=== PATIENT | male | born 1990 | race Caucasian/White ===

== ENCOUNTER 2019-03-24 19:49 | Emergency (ER) | payer MEDICAID, MEDICARE ==
[~2019-03-24] VITALS: Ht 195.5 cm; Wt 86.2 kg
[~2019-03-24 19:49] MED LIST: CEPH500C PO; DEPAKOTE; DIVA500T7 PO; HYDR-700 PO; LORA10TA7 PO; QTP100T PO; QUET50TA43 PO; SERT50TA9 PO; TRAM50TA2 PO; ZOLOFT
--- NOTE | 2019-03-24 19:58 | ED Upper Extremity ---
General Stated Complaint: INJURED RIGHT HAND Source: patient Exam Limitations: no limitations History of Present Illness Date Seen by Provider: Mar 24, 2019 Time Seen by Provider: 19:57 Initial Comments to ER with pain to the right hand, specifically to the dorsal aspect of the hand over the third fourth and fifth metacarpals. He states this occurred after he pushed a concrete wall on Saturday Onset: just prior to arrival Severity: moderate Pain/Injury Location: right thumb, right 3rd finger, right 4th finger, right 5th finger Method of Injury: direct blow Modifying Factors: Worse With Movement Allergies and Home Medications Allergies Coded Allergies: No Known Drug Allergies (Unverified , 07/27/13) Home Medications Quetiapine Fumarate 100 Mg Tablet, 300 MG PO HS, (Reported) Sertraline Hcl 50 Mg Tablet, 50 MG PO DAILY, (Reported) [Depakote] , ?MG BID, (Reported) Patient Home Medication List Home Medication List Reviewed: Yes Review of Systems Constitutional: see HPI EENTM: see HPI Respiratory: no symptoms reported Cardiovascular: no symptoms reported Genitourinary: no symptoms reported Musculoskeletal: see HPI Skin: no symptoms reported Psychiatric/Neurological: No Symptoms Reported Past Lcyhgsp-Wstlew-Nghgcb Hx Patient Social History Recent Foreign Travel: No Contact w/Someone Who Travel: No (N) Immunizations Up To Date Tetanus Booster (TDap): Less than 5yrs Date of Influenza Vaccine: Apr 24, 2013 Physical Exam Vital Signs Vital Signs - First Documented 03/24/19 19:50 Temp 36.7 Pulse 85 Resp 18 B/P (MAP) 147/87 (107) Pulse Ox 99 Capillary Refill : Height, Weight, BMI Height: 6'5" Weight: 190lbs. oz. 86.904916lh; BMI Method:Stated General Appearance: WD/WN, no apparent distress Respiratory: no respiratory distress, no accessory muscle use Shoulder: normal inspection, non-tender Elbow/Forearm: normal inspection, non-tender, Right (no pain at the elbow) Wrist: Yes normal inspection, Yes non-tender (pain at the wrist) Hand: Right, ecchymosis (faint yellowish green ecchymosis over the dorsal aspect of the hand with pain swelling specifically again over the third fourth and fifth metacarpals. No pain over the palmar aspect) Neurologic/Tendon: normal sensation, normal tendon functions Neurologic/Psychiatric: alert, normal mood/affect, oriented x 3 Skin: normal color, warm/dry Progress/Results/Core Measures Results/Orders My Orders Orders - MIGUEL SINGH APRN Hand, Right, 3 Views (03/24/19 19:56) Vital Signs/I&O 03/24/19 19:50 Temp 36.7 Pulse 85 Resp 18 B/P (MAP) 147/87 (107) Pulse Ox 99 Departure Impression Primary Impression: Contusion of hand Qualified Codes: S60.221A - Contusion of right hand, initial encounter Disposition: 01 HOME, SELF-CARE Condition: Stable Departure-Patient Inst. Decision time for Depature: 20:16 [place]errals: [facility] [place] [facility] [place] Primary Care Physician Patient Instructions: Contusion (DC) Add. Discharge Instructions: 1. Tylenol Motrin and an ice pack to the hand as needed for pain control 2. Follow-up with your doctor next week MIGUEL SINGH APRN Mar 24, 2019 19:58
--- NOTE | 2019-03-24 20:19 | Diagnostic Imaging Report ---
EXAM: HAND, RIGHT, 3 VIEWS INDICATION: Right hand pain after punching wall. COMPARISON: 02/24/2016. FINDINGS: No fracture or malalignment. Stable well-corticated fragment along the base of the right 5th metacarpal. Soft tissue shadows are unremarkable. IMPRESSION: No acute radiographic findings in the right hand Dictated by: Dictated on workstation # [id number]
[2019-03-24 20:28] VITALS: BP 147/87
== END 2019-03-24 20:28 | disposition home or self-care (01) ==
LOC: EDUNIT# 19:49 → ER 19:51
DX: S60.221A Contusion of right hand, initial encounter (principal); W22.8XXA Striking against or struck by other objects, initial encounter
CPT/HCPCS: 73130

== ENCOUNTER 2019-05-06 21:54 | Emergency (ER) | payer MEDICARE, MEDICAID ==
[~2019-05-06] VITALS: Ht 195 cm; Wt 83.1 kg
[2019-05-06] MEDS ORDERED: TETANUS,DIPTH,PERTUSS P/F (BOOSTRIX) 0.5 ML VIAL IM ONE (23:15)
--- NOTE | 2019-05-06 23:16 | ED Head Injury ---
General Chief Complaint: Head/Cervical Problems Stated Complaint: FALL Nursing Triage Note: Patient brought to ER FT1 by [facility] with complaint of an abrasion to the top of his head. Patient states he was jumping on the bed and hit his head on the ceiling. Patient denies any loss of consciousness. Source: patient (LIMITED HISTORIAN ABOUT PMH), EMS History of Present Illness Date Seen by Provider: May 06, 2019 Time Seen by Provider: 23:00 Initial Comments PT ARRIVES VIA EMS, WALKING IN ON HIS OWN AND TEXTING THE WHOLE TIME. PT STATES HE WAS JUMPING ON THE BED "FOR FUN" AND HIT HIS HEAD ON THE CEILING, AND LANDED ON THE BED ON HIS BACK DENIES LOSS OF CONSCIOUSNESS OCCURRED AT HOME AT 2200 TONIGHT HAS MINOR ABRASION TO TOP OF HEAD NO HEADACHE NO VISION CHANGES NO NECK PAIN NO DIZZINESS NO OTHER INJURIES EMS REPORT THAT THEY HAD BEEN CALLED TO THE SCENE APPROXIMATELY AN HOUR PRIOR TO THIS CALL, PT WAS BEING ARRESTED FOR A DOMESTIC DISTURBANCE, AND THEN STARTED COMPLAINING OF "CHEST PAIN" HE WAS BEING ARRESTED, SO EMS WAS CALLED. SOON PT WAS TOLD THAT HE WOULD BE COMING HERE INSTEAD OF GOING TO ASSISTED, AND WAS NOT GOING TO BE IMMEDIATELY ARRESTED, HE THEN PROMPTLY REFUSED CARE AND STATED THAT HIS CHEST PAIN WAS GONE. LAST TETANUS IS UNKNOWN PCP: [facility] Allergies and Home Medications Allergies Coded Allergies: No Known Drug Allergies (Unverified , 07/27/13) Home Medications Quetiapine Fumarate 100 Mg Tablet, 300 MG PO HS, (Reported) Sertraline Hcl 50 Mg Tablet, 50 MG PO DAILY, (Reported) [Depakote] , ?MG BID, (Reported) Patient Home Medication List Home Medication List Reviewed: Yes Review of Systems Review of Systems Constitutional: no symptoms reported Eyes: No Symptoms Reported Ears, Nose, Mouth, Throat: no symptoms reported Respiratory: no symptoms reported Cardiovascular: no symptoms reported Gastrointestinal: no symptoms reported Genitourinary: no symptoms reported Musculoskeletal: no symptoms reported Skin: see HPI Psychiatric/Neurological: No Symptoms Reported; Denies Cognitive Dysfunction, Denies Headache, Denies Numbness, Denies Tingling, Denies Weakness Endocrine: No Symptoms Reported Hematologic/Lymphatic: No Symptoms Reported Past Getikty-Bwfkjs-Zcqkwb Hx Patient Social History Alcohol Use: Denies Use Recreational Drug Use: No Smoking Status: Current Everyday Smoker Type Used: Cigarettes 2nd Hand Smoke Exposure: Yes Recent Foreign Travel: No Contact w/Someone Who Travel: No Recent Infectious Disease Expo: No Recent Hopitalizations: No Physical Abuse: No Sexual Abuse: No Mistreated: No Fear: No Immunizations Up To Date Tetanus Booster (TDap): Unknown Date of Influenza Vaccine: Apr 22, 2019 Seasonal Allergies Seasonal Allergies: No Past Medical History Surgeries: No Respiratory: No Cardiac: No Neurological: Yes Seizure Disorder Genitourinary: No Gastrointestinal: No Musculoskeletal: No Endocrine: No HEENT: No Cancer: No Psychosocial: Yes (CONDUCT DISORDER, MILD MR) Integumentary: No Blood Disorders: No Physical Exam Vital Signs Vital Signs - First Documented 05/06/19 22:07 Temp 37.1 Pulse 108 Resp 16 B/P (MAP) 119/71 (87) Pulse Ox 97 O2 Delivery Room Air Capillary Refill : Less Than 3 Seconds Height, Weight, BMI Height: 6'5" Weight: 190lbs. oz. 86.920226pb; 21.00 BMI Method:Stated General Appearance: WD/WN HEENT: PERRL/EOMI, normal ENT inspection Neck: non-tender, full range of motion, supple, normal inspection Cardiovascular: regular rate, rhythm, no murmur Respiratory: chest non-tender, normal breath sounds Gastrointestinal: non tender, soft Back: normal inspection Extremities: normal inspection Psychiatric: alert, oriented x 3 Crainal Nerves: normal hearing, normal speech, PERRL Coordination/Gait: normal gait Motor/Sensory: no motor deficit, no sensory deficit Skin: normal color, warm/dry, other (MINOR SUPERFICIAL ABRASION TO TOP OF HEAD. NO BONY TENDERNESS OR DEFORMITY. ) Progress/Results/Core Measures Results/Orders My Orders Orders - TIMOTEO LAINEZ DO Dipht,Pertuss(Acell),Tet Adult (Boostrix (05/06/19 23:15) Medications Given in ED Current Medications Medications Dose Ordered Sig/Kelli Route Start Time Stop Time Status Last Admin Dose Admin Diphtheria/ Tetanus/Acell Pertussis 0.5 ml ONCE ONCE IM 05/06/19 23:15 05/06/19 23:16 DC 05/06/19 23:29 0.5 ML Vital Signs/I&O 05/06/19 05/06/19 22:07 23:39 Temp 37.1 37.1 Pulse 108 108 Resp 16 16 B/P (MAP) 119/71 (87) 119/71 (87) Pulse Ox 97 97 O2 Delivery Room Air Room Air Blood Pressure Mean: 87 POS Departure Impression Primary Impression: Scalp abrasion Additional Impressions: Minor head injury without loss of consciousness Ttogqhiufn-zygdotxuv-xqoaukt (DPT) vaccination administered at current visit Disposition: 01 HOME, SELF-CARE Condition: Stable Departure-Patient Inst. Referrals: [facility] (PCP/Family) Primary Care Physician Patient Instructions: Skin Abrasions (DC), Minor Head Injury (DC) Add. Discharge Instructions: TYLENOL NEEDED FOR PAIN CLEAN WOUND TWICE A DAY WITH ANTIBACTERIAL SOAP AND WATER, APPLY ANTIBIOTIC OINTMENT TWICE A DAY FOLLOW UP WITH [facility] NEEDED All discharge instructions reviewed with patient and/or family. Voiced understanding. TIMOTEO LAINEZ DO May 06, 2019 23:16 POS
[2019-05-06 23:39] VITALS: BP 119/71
--- NOTE | 2019-05-06 23:40 | NUR ---
Patient given taxi voucher.
== END 2019-05-06 23:40 | disposition home or self-care (01) ==
LOC: EDUNIT# 21:54 → ER 21:55
DX: S09.90XA Unspecified injury of head, initial encounter (principal); S00.01XA Abrasion of scalp, initial encounter; G40.909 Epilepsy, unspecified, not intractable, without status epilepticus; F70 Mild intellectual disabilities; F91.9 Conduct disorder, unspecified; F17.210 Nicotine dependence, cigarettes, uncomplicated; Z23 Encounter for immunization; W22.8XXA Striking against or struck by other objects, initial encounter; Y92.009 Unspecified place in unspecified non-institutional (private) residence as the place of occurrence of the external cause
CPT/HCPCS: 90715; 99284

== ENCOUNTER 2019-09-06 16:28 | Emergency (ER) | payer MEDICARE, MEDICAID ==
[~2019-09-06] VITALS: Ht 185 cm; Wt 86.0 kg
[2019-09-06] MEDS ORDERED: LACTATED RINGERS 1,000 ML IV ONE (16:47)
[2019-09-06] MEDS ORDERED: FAMOTIDINE 20 MG (PEPCID) TABLET PO STA (16:47)
--- NOTE | 2019-09-06 16:54 | ED Abdominal Pain ---
General Chief Complaint: Psych/Social Disorder Stated Complaint: STOMACH AND CHEST PAIN Nursing Triage Note: stressing, abdominal pain and chest pain Sepsis Screen: No Definite Risk Source of Information: Patient Exam Limitations: No Limitations History of Present Illness Date Seen by Provider: Sep 06, 2019 Time Seen by Provider: 16:40 Initial Comments Patient presents ER by private conveyance with chief complaint that he is having some epigastric abdominal pain that is sharp, stabbing, intermittent since yesterday. He relates this pain to getting worse anytime he starts to have more anxiety. He does not associate it with food or bowel movements. He says he had a normal soft bowel movement today and he has not had anything to eat since yesterday. He says he been fighting with his significant other and this was made it worse. He has a lot of anxiety and so he wants to make sure nothing else is wrong with him. He said he tried some Tums but his pain just got worse. He does not take anything for anxiety because he used to be on Depakote but he had a period where he did not follow up with [facility] and is not on any medications now. He denies suicidality. He smokes a pack of cigarettes per day and denies any drinking, hypertriglyceridemia, diabetes or history of pancreatitis. He's not had any abdominal surgeries or trauma. He's had no recent travel, fever or chills or cough. Allergies and Home Medications Allergies Coded Allergies: No Known Drug Allergies (Unverified , 07/27/13) Home Medications Famotidine 20 Mg Tablet, 20 MG PO BID Prescribed by: ANGÉLICA VILLAVICENCIO on 09/06/191743 Quetiapine Fumarate 100 Mg Tablet, 300 MG PO HS, (Reported) Sertraline Hcl 50 Mg Tablet, 50 MG PO DAILY, (Reported) [Depakote] , ?MG BID, (Reported) Patient Home Medication List Home Medication List Reviewed: Yes Review of Systems Review of Systems Constitutional: No chills, No diaphoresis EENTM: No Blurred Vision, No Double Vision Respiratory: Denies Cough, Denies Shortness of Air Cardiovascular: Denies Chest Pain, Denies Lightheadedness Gastrointestinal: See HPI, Abdominal Pain; Denies Constipated, Denies Diarrhea, Denies Nausea Genitourinary: Denies Burning, Denies Discharge Musculoskeletal: No back pain, No joint pain Skin: No pruritus, No rash Psychiatric/Neurological: Denies Headache, Denies Numbness All Other Systems Reviewed Negative Unless Noted: Yes Past Ypormat-Kvxmed-Ytwmqw Hx Patient Social History Alcohol Use: Denies Use Recreational Drug Use: No Smoking Status: Current Everyday Smoker Type Used: Cigarettes 2nd Hand Smoke Exposure: Yes Recent Foreign Travel: No Contact w/Someone Who Travel: No Recent Infectious Disease Expo: No Recent Hopitalizations: No Physical Abuse: No Sexual Abuse: No Mistreated: Yes Fear: No Immunizations Up To Date Tetanus Booster (TDap): Unknown Date of Influenza Vaccine: Mar 24, 2019 Seasonal Allergies Seasonal Allergies: No Past Medical History Surgeries: No Respiratory: No Cardiac: No Neurological: Yes Seizure Disorder Genitourinary: No Gastrointestinal: No Musculoskeletal: No Endocrine: No HEENT: No Cancer: No Psychosocial: Yes (CONDUCT DISORDER, MILD MR) Integumentary: No Blood Disorders: No Physical Exam Vital Signs Vital Signs - First Documented 09/06/19 16:32 Temp 36.6 Pulse 124 Resp 22 B/P (MAP) 130/83 (99) Pulse Ox 96 O2 Delivery Room Air Capillary Refill : Less Than 3 Seconds Height/Weight/BMI Height: 6'5" Weight: 190lbs. oz. 86.565155yf; 25.00 BMI Method:Stated General Appearance: WD/WN, mild distress (anxious affect) HEENT: PERRL/EOMI, normal ENT inspection, TMs normal, pharynx normal Neck: full range of motion, supple, normal inspection Respiratory: lungs clear, normal breath sounds, no respiratory distress, no accessory muscle use Cardiovascular: normal peripheral pulses, regular rate, rhythm, tachycardia (120) Peripheral Pulses: 2+ Radial Pulses (R), 2+ Radial Pulses (L) Gastrointestinal: normal bowel sounds, soft, no organomegaly, tenderness (epigastric region) Extremities: normal range of motion, non-tender, normal capillary refill Neurologic/Psychiatric: alert, oriented x 3, other (anxious affect) Skin: normal color, warm/dry Progress/Results/Core Measures Results/Orders Lab Results Laboratory Tests Test 09/06/19 16:50 Range/Units White Blood Count 5.9 4.3-11.0 10^3/uL Red Blood Count 5.13 4.35-5.85 10^6/uL Hemoglobin 15.8 13.3-17.7 G/DL Hematocrit 45 40-54 % Mean Corpuscular Volume 89 80-99 FL Mean Corpuscular Hemoglobin 31 25-34 PG Mean Corpuscular Hemoglobin Concent 35 32-36 G/DL Red Cell Distribution Width 13.1 10.0-14.5 % Platelet Count 188 130-400 10^3/uL Mean Platelet Volume 11.5 H 7.4-10.4 FL Neutrophils (%) (Auto) 66 42-75 % Lymphocytes (%) (Auto) 25 12-44 % Monocytes (%) (Auto) 9 0-12 % Eosinophils (%) (Auto) 1 0-10 % Basophils (%) (Auto) 1 0-10 % Neutrophils # (Auto) 3.9 1.8-7.8 X 10^3 Lymphocytes # (Auto) 1.4 1.0-4.0 X 10^3 Monocytes # (Auto) 0.5 0.0-1.0 X 10^3 Eosinophils # (Auto) 0.0 0.0-0.3 10^3/uL Basophils # (Auto) 0.0 0.0-0.1 10^3/uL Sodium Level 137 135-145 MMOL/L Potassium Level 3.9 3.6-5.0 MMOL/L Chloride Level 104 98-107 MMOL/L Carbon Dioxide Level 20 L 21-32 MMOL/L Anion Gap 13 5-14 MMOL/L Blood Urea Nitrogen 11 7-18 MG/DL Creatinine 0.83 0.60-1.30 MG/DL Estimat Glomerular Filtration Rate > 60 BUN/Creatinine Ratio 13 Glucose Level 91 70-105 MG/DL Calcium Level 8.9 8.5-10.1 MG/DL Corrected Calcium 8.7 8.5-10.1 MG/DL Total Bilirubin 0.4 0.1-1.0 MG/DL Aspartate Amino Transf (AST/SGOT) 24 5-34 U/L Alanine Aminotransferase (ALT/SGPT) 20 0-55 U/L Alkaline Phosphatase 76 40-136 U/L Total Protein 6.7 6.4-8.2 GM/DL Albumin 4.3 3.2-4.5 GM/DL Lipase 18 8-78 U/L My Orders Orders - ANGÉLICA VILLAVICENCIO Ed Iv/Invasive Line Start (09/06/19 16:47) Lactated Ringers (Lr 1000 Ml Iv Solution (09/06/19 16:47) Lidocaine 2% Viscous 15 Ml (Xylocaine Vi (09/06/19 17:00) Famotidine Tablet (Pepcid Tablet) (09/06/19 16:47) Antacid Suspension (Mylanta Suspension (09/06/19 17:00) Lipase (09/06/19 16:47) Cbc With Automated Diff (09/06/19 16:47) Comprehensive Metabolic Panel (09/06/19 16:47) Medications Given in ED Current Medications Medications Dose Ordered Sig/Kelli Route Start Time Stop Time Status Last Admin Dose Admin Al Hydrox/Mg Hydrox/Simethicone 30 ml ONCE ONCE PO 09/06/19 17:00 09/06/19 17:01 DC 09/06/19 17:02 30 ML Lactated Ringer's 1,000 ml @ 0 mls/hr Q0M ONCE IV 09/06/19 16:47 09/06/19 16:50 DC 09/06/19 17:01 1,000 MLS/HR Lidocaine HCl 15 ml ONCE ONCE PO 09/06/19 17:00 09/06/19 17:01 DC 09/06/19 17:02 15 ML Vital Signs/I&O 09/06/19 16:32 Temp 36.6 Pulse 124 Resp 22 B/P (MAP) 130/83 (99) Pulse Ox 96 O2 Delivery Room Air Blood Pressure Mean: 99 Progress Progress Note #1: Time: 16:52 Progress Note Plan to give him a GI cocktail and Pepcid. Check some basic labs including a lipase. He endorsed dysuria so we'll check a urinalysis and drug screen. If this doesn't help his pain we can think about using an anti-anxiety versus some Toradol. Seems like he and his girlfriend were fighting and he walked away and ended up coming up here because his belly hurt. He personally associated with belly pain with his anxiety. Progress Note #2: Time: 17:39 Progress Note Patient's pain is better he is not having any discomfort or nausea. He is feeling much better and has called and spoke with his significant other and they have reconciled. He is ready to go home. We have offered him to follow-up with his primary care office and do a urinalysis if he wants and he accepted that plan. We have put him on Pepcid for the next couple weeks. Departure Impression Primary Impression: GERD (gastroesophageal reflux disease) Qualified Codes: K21.0 - Gastro-esophageal reflux disease with esophagitis Additional Impression: Acute anxiety Disposition: 01 HOME, SELF-CARE Condition: Stable Departure-Patient Inst. Decision time for Depature: 17:42 Referrals: [facility] (PCP/Family) Primary Care Physician Patient Instructions: Acid Reflux (Gastroesophageal Reflux Disease), Adult (DC) Add. Discharge Instructions: Start taking Pepcid 20 mg capsules twice a day for the next 30 days. Follow-up with your primary care doctor in the next 2-4 weeks for reassessment of your symptoms. If your symptoms worsen you can try Mylanta, Maalox or Rolaids. All discharge instructions reviewed with patient and/or family. Voiced understanding. Scripts Famotidine (Pepcid) 20 Mg Tablet 20 MG PO BID for 30 Days, #60 TAB 0 Refills Prov: ANGÉLICA VILLAVICENCIO 09/06/19 ANGÉLICA VILLAVICENCIO Sep 06, 2019 16:54
[2019-09-06 17:00] LABS: BASOPHILS % (AUTO) 1 % (0-10); EOSINOPHILS % (AUTO) 1 % (0-10); HEMATOCRIT 45 % (40-54); HEMOGLOBIN 15.8 G/DL (13.3-17.7); LYMPHOCYTES # (AUTO) 1.4 X 10^3 (1.0-4.0); LYMPHOCYTES % (AUTO) 25 % (12-44); MEAN CORPUSCULAR HEMOGLOBIN 31 PG (25-34); MEAN CORPUSCULAR HGB CONC 35 G/DL (32-36); MEAN CORPUSCULAR VOLUME 89 FL (80-99); MEAN PLATELET VOLUME 11.5 FL (7.4-10.4); MONOCYTES # (AUTO) 0.5 X 10^3 (0.0-1.0); MONOCYTES % (AUTO) 9 % (0-12); NEUTROPHILS # (AUTO) 3.9 X 10^3 (1.8-7.8); NEUTROPHILS % (AUTO) 66 % (42-75); PLATELET COUNT 188 10^3/uL (130-400); RED CELL DISTRIBUTION WIDTH 13.1 % (10.0-14.5); WHITE BLOOD COUNT 5.9 10^3/uL (4.3-11.0)
[2019-09-06] MEDS ORDERED: LIDOCAINE 2% VISCOUS 15 ML UDC PO ONE (17:00)
[2019-09-06] MEDS ORDERED: ANTACID SUSP 30 ML UDC (MYLANTA) PO ONE (17:00)
[2019-09-06 17:23] LABS: ALANINE AMINOTRANSFERASE 20 U/L (0-55); ALBUMIN 4.3 GM/DL (3.2-4.5); ALKALINE PHOSPHATASE 76 U/L (40-136); BILIRUBIN,TOTAL 0.4 MG/DL (0.1-1.0); BUN/CREATININE RATIO 13; CALCIUM 8.9 MG/DL (8.5-10.1); CARBON DIOXIDE 20 MMOL/L (21-32); CHLORIDE 104 MMOL/L (98-107); CREATININE SERUM 0.83 MG/DL (0.60-1.30); GFR ESTIMATED > 60; GLUCOSE 91 MG/DL (70-105); LIPASE 18 U/L (8-78); POTASSIUM 3.9 MMOL/L (3.6-5.0); SODIUM 137 MMOL/L (135-145); TOTAL PROTEIN 6.7 GM/DL (6.4-8.2)
[2019-09-06] MEDS ORDERED: FAMO-119 PO (17:44)
[2019-09-06 17:53] VITALS: BP 132/87
--- OUTSIDE RECORDS SUMMARY | 2019-09-07 02:28 | XMS REPORT ---
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 Activ e 218881264 Problem Impulse control disorder F63.9 Activ e 37311283 Problem Depressive disorder F32.9 Active 51015783 Problem Mild intellectual disabilities F70 Active 76169755 Problem Seasonal allergic rhinitis due to pollen J30.1 Active [id number] ALLERGIES No Information ENCOUNTERS Encounter Location Date Diagnosis [place] [id number] [address] Sep, [place] [address] [address] Jul, Depressive disorder F32.9 [place] [address] [address] Jul, [place] [address] [address] May, [facility] [address] [address] Apr, [place] [address] [address] Apr, Depressive disorder F32.9 ; Impulse cont rol disorder F63.9 and Mild intellectual disabilities F70 [facility] [address] [address] Apr, [place] [address] [address] Apr, [facility] [address] [place] [id number] [place] [address] Apr, [facility] [address] [address] Apr, Impulse control disorder F63.9 ; Depress douglas disorder F32.9 and Mild intellectual disabilities F70 [address] [place] [address] Mar, [facility] [address] [address] Mar, [facility] [address] [address] Mar, Encounter for immunization Z23 [facility] [address] [address] Dec, [facility] [address] [address] Dec, Seasonal allergic rhinitis due to pollen J30.1 [facility] [address] [place] [id number] [place] [address] October, Depressive disorder F32.9 ; Impulse cont rol disorder F63.9 and Mild intellectual disabilities F70 [facility] [address] [place] [id number] [place] [address] Jun, Impulse control disorder F63.9 ; Mild in tellectual disabilities F70 ; Relationship dysfunction Z63.9 and Depressive disorder F32.9 [facility] [address] [place] [id number] [place] [address] Jun, [facility] [address] [address] May, [facility] [address] [address] May, [facility] [address] [address] May, Encounter for immunization Z23 [facility] [address] [address] Apr, [facility] [address] [address] Apr, [facility] [address] [address] Mar, [facility] [address] [address] Mar, [facility] [address] [address] Feb, Annual physical exam Z00.00 [place] [address] [address] 25 Feb, 2018 Annual physical exam Z00.00 ; Mild intel lectual disabilities F70 and Encounter for immunization Z23 [facility] [address] [address] 11 Feb, 2018 [facility] [address] [address] Jan, [facility] [address] [address] Jan, Impulse control disorder F63.9 ; Mild in tellectual disabilities F70 and Depressive disorder F32.9 [facility] [address] [address] Nov, [facility] [address] [address] Nov, [facility] [address] [address] Nov, [facility] [address] [address] Nov, [facility] [address] [address] Nov, [facility] [address] [address] 05 Nov, 2017 Impulse control disorder F63.9 ; Depress douglas disorder F32.9 and Mild intellectual disabilities F70 [facility] [address] [address] October, [facility] [address] [address] October, Impulse control disorder F63.9 ; Depress douglas disorder F32.9 and Mild intellectual disabilities F70 [facility] [address] [place] [id number] Sep, [facility] [address] [address] Sep, Impulse control disorder F63.9 ; Depress douglas disorder F32.9 and Mild intellectual disabilities F70 [facility] [address] [address] Sep, Impulse control disorder F63.9 ; Depress douglas disorder F32.9 and Mild intellectual disabilities F70 [facility] [address] [address] Aug, [facility] [address] [address] Aug, Impulse control disorder F63.9 ; Depress douglas disorder F32.9 and Mild intellectual disabilities F70 [facility] [address] [id number] Aug, Dental examination Z01.20 [facility] [address] [address] Aug, [facility] [address] [address] Aug, Impulse control disorder F63.9 ; Depress douglas disorder F32.9 and Mild intellectual disabilities F70 [facility] [address] [place] [id number] Jul, Impulse control disorder F63.9 ; Depress douglas disorder F32.9 and Mild intellectual disabilities F70 [facility] [address] [id number] 12 Jul, 2017 Dental examination Z01.20 [facility] [address] [address] Jul, [facility] [address] [place] [id number] Jun, Impulse control disorder F63.9 ; Depress douglas disorder F32.9 and Mild intellectual disabilities F70 [facility] [address] [address] Jun, Impulse control disorder F63.9 ; Depress douglas disorder F32.9 and Mild intellectual disabilities F70 [facility] [address] [address] Jun, [facility] [address] [address] 08 May, 2017 [facility] [address] [address] May, Impulse control disorder F63.9 ; Depress douglas disorder F32.9 and Mild intellectual disabilities F70 [facility] [address] [address] Apr, Impulse control disorder F63.9 ; Depress douglas disorder F32.9 and Mild intellectual disabilities F70 [facility] [address] [address] Apr, Seizures R56.9 [place] [address] [address] Apr, [facility] [address] [address] Apr, Seizures R56.9 ; Tobacco abuse Z72.0 ; A lcohol abuse F10.10 and Encounter for immunization Z23 [facility] [address] [address] 14 Apr, 2017 Impulse control disorder F63.9 ; Depress douglas disorder F32.9 and Mild intellectual disabilities F70 [facility] [address] [address] Mar, Impulse control disorder F63.9 ; Depress douglas disorder F32.9 and Mild intellectual disabilities F70 [facility] [address] [address] Mar, [facility] [address] [address] Mar, Impulse control disorder F63.9 ; Depress douglas disorder F32.9 and Mild intellectual disabilities F70 [facility] [address] [address] Mar, [facility] [address] [address] Feb, Impulse control disorder F63.9 ; Depress douglas disorder F32.9 and Mild intellectual disabilities F70 [facility] [address] [address] Feb, [facility] [address] [address] Feb, Impulse control disorder F63.9 ; Depress douglas disorder F32.9 and Mild intellectual disabilities F70 [facility] [address] [address] Jan, Annual physical exam Z00.00 ; Right hand pain M79.641 ; Impulse control disorder F63.9 ; Mild intellectual disabilities F70 and Depressive disorder F32.9 [facility] [address] [address] Jan, Impulse control disorder F63.9 ; Depress douglas disorder F32.9 and Mild intellectual disabilities F70 [facility] [address] [address] Jan, [facility] [address] [address] Jan, Impulse control disorder F63.9 ; Depress douglas disorder F32.9 and Mild intellectual disabilities F70 [facility] [address] [address] Jan, Impulse control disorder F63.9 ; Depress douglas disorder F32.9 and Mild intellectual disabilities F70 [facility] [address] [address] Dec, [facility] [address] [address] Dec, Impulse control disorder F63.9 ; Depress douglas disorder F32.9 and Mild intellectual disabilities F70 [facility] [address] [address] Nov, Impulse control disorder F63.9 ; Depress douglas disorder F32.9 and Mild intellectual disabilities F70 [facility] [address] [address] Nov, [facility] [address] [address] Nov, [facility] [address] [address] Nov, [facility] [address] [address] October, Impulse control disorder F63.9 ; Depress douglas disorder F32.9 and Mild intellectual disabilities F70 [facility] [address] [address] October, [facility] [address] [address] October, Impulse control disorder F63.9 ; Depress douglas disorder F32.9 and Mild intellectual disabilities F70 [facility] [address] [address] Sep, [facility] [address] [address] Sep, Impulse control disorder F63.9 ; Depress douglas disorder F32.9 and Mild intellectual disabilities F70 [facility] [address] [address] Sep, Seasonal allergic rhinitis due to pollen J30.1 [facility] [address] [address] Sep, [facility] [address] [address] Sep, [facility] [address] [address] Sep, Impulse control disorder F63.9 ; Depress douglas disorder F32.9 and Mild intellectual disabilities F70 [facility] [address] [address] Aug, Impulse control disorder F63.9 ; Depress douglas disorder F32.9 and Mild intellectual disabilities F70 [facility] [address] [address] Aug, [facility] [address] [address] Aug, [facility] [address] [address] Jul, [facility] [address] [address] Jul, Impulse control disorder F63.9 ; Depress douglas disorder F32.9 and Mild intellectual disabilities F70 [facility] [address] [facility] [place] [id number] 10 Jul, 2016 Dental examination Z01.20 [facility] [address] [address] Jul, Impulse control disorder F63.9 ; Depress douglas disorder F32.9 and Mild intellectual disabilities F70 [facility] [address] [address] Jul, [facility] [address] [address] Jun, [facility] [address] [address] Jun, Impulse control disorder F63.9 ; Depress douglas disorder F32.9 and Mild intellectual disabilities F70 [facility] [address] [address] Jun, [facility] [address] [address] Jun, [facility] [address] [address] Jun, Impulse control disorder F63.9 ; Depress douglas disorder F32.9 and Mild intellectual disabilities F70 [facility] [address] [address] May, Impulse control disorder F63.9 ; Depress douglas disorder F32.9 and Mild intellectual disabilities F70 [facility] [address] [address] May, Annual physical exam Z00.00 ; Other fati sarah R53.83 ; Seizures R56.9 ; Mild intellectual disabilities F70 and Impulse control disorder F63.9 [facility] [address] [address] May, [facility] [address] [address] May, Impulse control disorder F63.9 ; Depress douglas disorder F32.9 and Mild intellectual disabilities F70 [facility] [address] [facility] [place] [id number] Apr, Encounter for dental examination Z01.20 [facility] [address] [address] Apr, Impulse control disorder F63.9 ; Depress douglas disorder F32.9 and Mild intellectual disabilities F70 [facility] [address] [address] Apr, [facility] [address] [address] Mar, Impulse control disorder F63.9 ; Depress douglas disorder F32.9 and Mild intellectual disabilities F70 [facility] [address] [address] Mar, Impulse control disorder F63.9 ; Depress douglas disorder F32.9 and Mild intellectual disabilities F70 [facility] [address] [address] Mar, [facility] [address] [address] Mar, [facility] [address] [address] Feb, Impulse control disorder F63.9 ; Depress douglas disorder F32.9 and Mild intellectual disabilities F70 [facility] [address] [address] Feb, Impulse control disorder F63.9 ; Depress douglas disorder F32.9 and Mild intellectual disabilities F70 [facility] [address] [address] Feb, [facility] [address] [address] Jan, Annual physical exam Z00.00 ; Impulse co ntrol disorder F63.9 ; Mild intellectual disabilities F70 ; Depressive disorder F32.9 and Seizures R56.9 [facility] [address] [address] Jan, Impulse control disorder F63.9 ; Depress douglas disorder F32.9 and Mild intellectual disabilities F70 [facility] [address] [address] Jan, [facility] [address] [address] Jan, Impulse control disorder F63.9 ; Depress douglas disorder F32.9 and Mild intellectual disabilities F70 [facility] [address] [address] Jan, [facility] [address] [address] Jan, [facility] [address] [address] Dec, Impulse control disorder F63.9 ; Depress douglas disorder F32.9 and Mild intellectual disabilities F70 [facility] [address] [address] Dec, Impulse control disorder F63.9 ; Depress douglas disorder F32.9 and Mild intellectual disabilities F70 [facility] [address] [address] Dec, [facility] [address] [address] Dec, Depressive disorder F32.9 ; Impulse cont rol disorder F63.9 and Mild intellectual disabilities F70 [facility] [address] [address] Nov, [facility] [address] [address] Nov, Depressive disorder F32.9 ; Impulse cont rol disorder F63.9 and Mild intellectual disabilities F70 [facility] [address] [address] Nov, [facility] [address] [address] October, Depressive disorder F32.9 ; Impulse cont rol disorder F63.9 and Mild intellectual disabilities F70 [facility] [address] [address] October, [facility] [address] [address] October, [facility] [address] [address] October, Depressive disorder F32.9 ; Impulse cont rol disorder F63.9 and Mild intellectual disabilities F70 [facility] [address] [address] October, [facility] [address] [address] Sep, [facility] [address] [address] Sep, Depressive disorder F32.9 ; Impulse cont rol disorder F63.9 and Mild intellectual disabilities F70 [facility] [address] [address] Sep, Depressive disorder F32.9 ; Impulse cont rol disorder F63.9 and Mild intellectual disabilities F70 [facility] [address] [address] Sep, [facility] [address] [address] Aug, [facility] [address] [address] Aug, Depressive disorder F32.9 ; Impulse cont rol disorder F63.9 and Mild intellectual disabilities F70 [facility] [address] [address] Aug, Depressive disorder F32.9 ; Impulse cont rol disorder F63.9 and Mild intellectual disabilities F70 [facility] [address] [place] [id number] [place] [id number] Jul, Dental examination Z01.20 [facility] [address] [address] Jul, [facility] [address] [address] Jul, Depressive disorder F32.9 ; Impulse cont rol disorder F63.9 and Mild intellectual disabilities F70 [facility] [address] [address] 05 Jul, 2015 Depressive disorder F32.9 ; Impulse cont rol disorder F63.9 and Mild intellectual disabilities F70 [facility] [address] [address] Jul, Depression screening Z13.89 ; 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, 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 and Screening for STD sexually transmitted disease Z11.3 [facility] [address] [place] [address] Jun, [facility] [address] [address] Jun, Depressive disorder F32.9 ; Impulse cont rol disorder F63.9 and Mild intellectual disabilities F70 [facility] [address] [address] Jun, Depressive disorder, not elsewhere class ified F32.9 ; Mild mental retardation F70 and Impulse control disorder F63.9 [facility] [address] [address] Jun, Depressive disorder, not elsewhere class ified F32.9 ; Impulse control disorder F63.9 and Mild intellectual disabilities F70 [facility] [address] [address] Jun, [facility] [address] [place] [id number] [place] [id number] Jun, Dental examination Z01.20 [facility] [address] [address] May, Depressive disorder, not elsewhere class ified F32.9 ; Impulse control disorder F63.9 and Mild intellectual disabilities F70 [facility] [address] [address] May, [facility] [address] [address] May, [facility] [address] [address] May, Depressive disorder, not elsewhere class ified F32.9 ; Impulse control disorder F63.9 and Mild intellectual disabilities F70 [facility] [address] [address] May, Depressive disorder, not elsewhere class ified F32.9 ; Impulse control disorder F63.9 and Mild mental retardation F70 [facility] [address] [address] Apr, Depressive disorder, not elsewhere class ified F32.9 ; Impulse control disorder F63.9 and Mild intellectual disabilities F70 [facility] [address] [address] Apr, [facility] [address] [address] Mar, Depressive disorder, not elsewhere class ified F32.9 ; Impulse control disorder F63.9 and Mild intellectual disabilities F70 [facility] [address] [place] [address] Mar, Depressive disorder, not elsewhere class ified F32.9 ; Impulse control disorder F63.9 and Mild intellectual disabilities F70 [facility] [address] [address] Mar, [facility] [address] [address] Mar, Encounter for immunization Z23 [place] [address] [address] Mar, Depressive disorder, not elsewhere class ified F32.9 ; Impulse control disorder F63.9 and Mild intellectual disabilities F70 [facility] [address] [address] Feb, Depressive disorder, not elsewhere class ified 311 ; Impulse control disorder, unspecified 312.30 and Mild mental retardation 317 [facility] [address] [address] Feb, [facility] [address] [address] Feb, Depressive disorder, not elsewhere class ified 311 ; Impulse control disorder, unspecified 312.30 and Mild mental retardation 317 [facility] [address] [address] Jan, Depressive disorder, not elsewhere class ified 311 ; Impulse control disorder, unspecified 312.30 and Mild mental retardation [address] [place] [address] [address] Jan, Depressive disorder, not elsewhere class ified 311 ; Impulse control disorder, unspecified 312.30 and Mild mental retardation [address] [place] [address] [address] Jan, [place] [address] [address] Jan, Depressive disorder, not elsewhere class ified 311 ; Impulse control disorder, unspecified 312.30 and Mild mental retardation [address] [place] [address] [address] Dec, Depressive disorder, not elsewhere class ified 311 ; Impulse control disorder, unspecified 312.30 and Mild mental retardation [address] [place] [address] [address] Dec, [facility] [id number] [place] [id number] Dec, Dental examination V72.[address] [address] Dec, Heat rash 705.1 ; Seizures 780.39 and Hi gh risk medication use V58.69 [place] [address] [address] Dec, [address] [address] Dec, Depressive disorder, not elsewhere class ified 311 ; Impulse control disorder, unspecified 312.30 and Mild mental retardation [address] [place] [address] [address] Nov, Depressive disorder, not elsewhere class ified 311 ; Impulse control disorder, unspecified 312.30 and Mild mental retardation [address] [place] [address] [address] Nov, [facility] [id number] [place] [address] 15 Nov, 2014 Nicotine addiction 305.1 [facility] [id number] [place] [address] 11 Nov, 2014 [facility] [id number] [place] [address] 11 Nov, 2014 High risk medication use V58.69 [facility] [address] [address] 10 Nov, 2014 High risk medication use V58.69 [facility] [id number] [place] [address] 09 Nov, 2014 Depressive disorder, not elsewhere class ified 311 ; Impulse control disorder, unspecified 312.30 and Mild mental retardation 317 [facility] [id number] [place] [address] Nov, Depressive disorder, not elsewhere class ified 311 ; 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 and Impulse control disorder, unspecified 312.30 [facility] [address] [address] [id number] [place] [address] October, Depressive disorder, not elsewhere class ified 311 ; Impulse control disorder, unspecified 312.30 and Mild mental retardation 317 [facility] [address] [id number] [place] [address] October, [facility] [address] [place] [id number] [place] [address] October, Depressive disorder, not elsewhere class ified 311 ; Impulse control disorder, unspecified 312.30 and Mild mental retardation 317 [facility] [address] [address] [id number] [place] [address] October, [facility] [address] [id number] [place] [id number] October, Dental examination V72.2 [facility] [address] [id number] [place] [address] Sep, Depressive disorder, not elsewhere class ified 311 ; Impulse control disorder 312.30 and Mild mental retardation 317 [facility] [place] [facility] [address] [id number] [place] [address] 14 Sep, 2014 [facility] [address] [id number] [place] [address] 13 Sep, 2014 [facility] [place] [facility] [address] [id number] [place] [address] 26 Aug, 2014 [facility] [place] [facility] [address] [facility] [id number] [place] [address] 26 Aug, 2014 [facility] [place] [facility] [address] [facility] [id number] [place] [address] Aug, [facility] [place] [facility] [address] [facility] [id number] [place] [address] 18 Aug, 2014 [facility] [place] [facility] [address] [id number] [place] [address] Aug, [facility] [place] [facility] [address] [id number] [place] [address] Aug, [facility] [place] [facility] [address] [facility] [id number] [place] [address] Aug, [facility] [place] [facility] [address] [facility] [id number] [place] [address] Aug, [facility] [place] [facility] [address] [id number] [place] [address] Jul, 2014 [facility] [place] [facility] [address] [id number] [place] [address] Jul, 2014 [facility] [place] [facility] [address] [id number] [place] [address] Jul, 2014 [facility] [place] [facility] [address] [facility] [id number] [place] [address] Jul, 2014 [facility] [place] [facility] [address] [id number] [place] [address] 16 Jul, 2014 [facility] [place] [facility] [address] [id number] [place] [address] 16 Jul, 2014 [facility] [place] [facility] [address] [id number] [place] [address] Jul, 2014 [facility] [place] [facility] [address] [id number] [place] [address] Jul, 2014 [facility] [place] [facility] [address] [id number] [place] [address] Jul, 2014 [facility] [place] [facility] [address] [facility] [id number] [place] [address] Jul, 2014 [facility] [place] [facility] [address] [id number] [place] [address] Jul, [facility] [place] [facility] [address] [id number] [place] [address] Jul, [facility] [place] [facility] [address] [facility] [id number] [place] [address] Jul, [facility] [place] [facility] [address] [id number] [place] [address] Jul, [facility] [place] [facility] [address] [facility] [id number] [place] [address] Jun, [facility] [place] [facility] [address] [id number] [place] [address] Jun, [facility] [place] [facility] [address] [facility] [id number] [place] [address] Jun, [facility] [place] [facility] [address] [facility] [id number] [place] [address] Jun, [facility] [place] [facility] [address] [facility] [id number] [place] [address] Jun, [facility] [place] [facility] [address] [id number] [place] [address] Jun, [facility] [place] [facility] [address] [facility] [id number] [place] [address] Jun, [facility] [place] [facility] [address] [id number] [place] [address] Jun, [facility] [place] [facility] [address] [id number] [place] [address] 15 Jun, 2014 [facility] [place] [facility] [address] [id number] [place] [address] 15 Jun, 2014 [facility] [place] [facility] [address] [facility] [id number] [place] [address] Jun, [facility] [place] [facility] [address] [facility] [id number] [place] [address] 15 Jun, 2014 [facility] [place] [facility] [address] [id number] [place] [address] 08 Jun, 2014 [facility] [place] [facility] [address] [id number] [place] [address] 08 Jun, 2014 [facility] [place] [facility] [address] [id number] [place] [address] 08 Jun, 2014 [facility] [place] [facility] [address] [id number] [place] [address] 08 Jun, 2014 [facility] [place] [facility] [address] [id number] [place] [address] Jun, [facility] [place] [facility] [address] [id number] [place] [address] 08 Jun, 2014 [facility] [place] [facility] [address] [id number] [place] [address] Jun, [facility] [place] [facility] [address] [id number] [place] [address] 08 Jun, 2014 [facility] [place] [facility] [address] [id number] [place] [address] May, [facility] [place] [facility] [address] [id number] [place] [address] May, [facility] [place] [facility] [address] [id number] [place] [address] May, [facility] [place] [facility] [address] [id number] [place] [address] May, [facility] [place] [facility] [address] [facility] [id number] [place] [address] May, [facility] [place] [facility] [address] [id number] [place] [address] Apr, [facility] [place] [facility] [address] [facility] [id number] [place] [address] Apr, [facility] [place] [facility] [address] [id number] [place] [address] Apr, [facility] [place] [facility] [address] [facility] [id number] [place] [address] Apr, [facility] [place] [facility] [address] [id number] [place] [address] Apr, [facility] [place] [facility] [address] [facility] [id number] [place] [address] Apr, [facility] [place] [facility] [address] [id number] [place] [address] Apr, [facility] [place] [facility] [address] [id number] [place] [address] Apr, [facility] [place] [facility] [address] [facility] [id number] [place] [address] Mar, [facility] [place] [facility] [address] [facility] [id number] [place] [address] Mar, [facility] [place] [facility] [address] [facility] [id number] [place] [address] Mar, [facility] [place] [facility] [address] [id number] [place] [address] Mar, [facility] [place] [facility] [address] [facility] [id number] [place] [address] Mar, [facility] [place] [facility] [address] [id number] [place] [address] Mar, [facility] [place] [facility] [address] [id number] [place] [address] Mar, [facility] [place] [facility] [address] [id number] [place] [address] Mar, [facility] [place] [facility] [address] [facility] [id number] [place] [address] Mar, [facility] [place] [facility] [address] [facility] [id number] [place] [address] 16 Mar, 2013 [facility] [place] [facility] [address] [id number] [place] [address] 16 Mar, 2013 [facility] [place] [facility] [address] [facility] [id number] [place] [address] 16 Mar, 2013 [facility] [place] [facility] [address] [facility] [id number] [place] [address] 15 Mar, 2014 [facility] [place] [facility] [address] [facility] [id number] [place] [address] 15 Mar, 2013 [facility] [place] [facility] [address] [id number] [place] [address] Mar, [facility] [place] [facility] [address] [id number] [place] [address] Mar, 2013 [facility] [place] [facility] [address] [facility] [id number] [place] [address] Mar, [facility] [place] [facility] [address] [facility] [id number] [place] [address] Mar, [facility] [place] [facility] [address] [id number] [place] [address] Mar, [facility] [place] [facility] [address] [facility] [id number] [place] [address] Mar, [facility] [place] [facility] [address] [facility] [id number] [place] [address] 24 Feb, 2013 [facility] [place] [facility] [address] [id number] [place] [address] 24 Sep, 2013 [facility] [place] [facility] [address] [id number] [place] [address] 19 Sep, 2013 [facility] [place] [facility] [address] [facility] [id number] [place] [address] 19 Feb, 2013 [facility] [place] [facility] [address] [id number] [place] [address] 11 Feb, 2013 [facility] [place] [facility] [id number] [place] [address] Feb, [facility] [place] [facility] [address] [id number] [place] [address] Feb, [facility] [place] [facility] [address] [facility] [id number] [place] [address] Feb, [facility] [place] [facility] [address] [facility] [id number] [place] [address] Jan, [facility] [place] [facility] [address] [facility] [id number] [place] [address] Jan, [facility] [place] [facility] [address] [facility] [id number] [place] [address] Jan, [facility] [place] [facility] [address] [facility] [id number] [place] [address] Jan, [facility] [place] [facility] [address] [id number] [place] [address] Dec, [facility] [place] [facility] [address] [id number] [place] [address] Dec, [facility] [place] [facility] [address] [facility] [id number] [place] [address] Dec, [facility] [place] [facility] [address] [facility] [id number] [place] [address] Dec, [facility] [place] [facility] [address] [facility] [id number] [place] [address] Dec, [facility] [place] [facility] [address] [id number] [place] [address] Dec, [facility] [place] [facility] [address] [facility] [id number] [place] [address] Dec, [facility] [place] [facility] [address] [id number] [place] [address] Dec, [facility] [place] [facility] [address] [facility] [id number] [place] [address] Dec, [facility] [place] [facility] [address] [id number] [place] [address] Dec, [facility] [place] [facility] [address] [facility] [id number] [place] [address] Nov, [facility] [place] [facility] [address] [id number] [place] [address] Nov, [facility] [place] [facility] [address] [facility] [id number] [place] [address] Nov, [facility] [place] [facility] [address] [id number] [place] [address] Nov, [facility] [place] [facility] [address] [facility] [id number] [place] [address] Nov, [facility] [place] [facility] [address] [facility] [id number] [place] [address] Nov, [facility] [place] [facility] [address] [id number] [place] [address] Nov, [facility] [place] [facility] [address] [id number] [place] [address] Nov, [facility] [place] [facility] [address] [id number] [place] [address] Nov, [facility] [place] [facility] [address] [facility] [id number] [place] [address] Nov, [facility] [place] [facility] [address] [id number] [place] [address] Nov, [facility] [place] [facility] [address] [id number] [place] [address] Nov, [facility] [place] [facility] [address] [id number] [place] [address] October, [facility] [place] [facility] [address] [id number] [place] [address] October, [facility] [place] [facility] [address] [id number] [place] [address] October, [facility] [place] [facility] [address] [id number] [place] [address] October, [facility] [place] [facility] [address] [id number] [place] [address] October, [facility] [place] [facility] [address] [id number] [place] [address] October, [facility] [place] [facility] [address] [id number] [place] [address] October, [facility] [place] [facility] [address] [id number] [place] [address] October, [facility] [place] [facility] [address] [id number] [place] [address] October, [facility] [place] [facility] [address] [id number] [place] [address] October, [facility] [place] [facility] [address] [id number] [place] [address] Sep, [facility] [place] [facility] [address] [id number] [place] [address] Sep, [facility] [place] [facility] [address] [id number] [place] [address] Sep, [facility] [place] [facility] [address] [id number] [place] [address] Sep, [facility] [place] [facility] [address] [id number] [place] [address] Sep, [facility] [place] [facility] [address] [id number] [place] [address] Sep, [facility] [place] [facility] [address] [id number] [place] [address] Sep, [facility] [place] [facility] [address] [id number] [place] [address] Sep, [facility] [place] [facility] [address] [id number] [place] [address] Aug, [facility] [place] [facility] [address] [id number] [place] [address] Aug, [facility] [place] [facility] [address] [id number] [place] [address] Aug, [facility] [place] [facility] [address] [id number] [place] [address] Aug, [facility] [place] [facility] [address] [id number] [place] [address] Aug, [facility] [place] [facility] [address] [id number] [place] [address] Aug, [facility] [place] [facility] [address] [id number] [place] [address] Aug, [facility] [place] [facility] [address] [id number] [place] [address] Aug, [facility] [place] [facility] [address] [facility] [id number] [place] [address] Jul, [facility] [place] [facility] [address] [id number] [place] [address] Jul, [facility] [place] [facility] [address] [id number] [place] [address] Jul, [facility] [place] [facility] [address] [id number] [place] [address] Jul, [facility] [place] [facility] [address] [id number] [place] [address] Jul, [facility] [place] [facility] [address] [id number] [place] [address] Jul, [facility] [place] [facility] [address] [id number] [place] [address] Jul, [facility] [place] [facility] [address] [id number] [place] [address] Jul, [facility] [place] [facility] [address] [id number] [place] [address] Jun, [facility] [place] [facility] [address] [id number] [place] [address] Jun, [facility] [place] [facility] [address] [id number] [place] [address] Jun, [facility] [place] [facility] [address] [id number] [place] [address] Jun, [facility] [place] [facility] [address] [id number] [place] [address] 16 Jun, 2013 [facility] [place] [facility] [address] [id number] [place] [address] Jun, [facility] [place] [facility] [address] [id number] [place] [address] Jun, [facility] [place] [facility] [address] [id number] [place] [address] Jun, [facility] [place] [facility] [address] [id number] [place] [address] May, [facility] [place] [facility] [address] [id number] [place] [address] May, [facility] [place] [facility] [address] [id number] [place] [address] May, [facility] [place] [facility] [address] [id number] [place] [address] May, [facility] [place] [facility] [address] [id number] [place] [address] May, [facility] [place] [facility] [address] [id number] [place] [address] May, [facility] [place] [facility] [address] [id number] [place] [address] Apr, [facility] [place] [facility] [address] [id number] [place] [address] Apr, [facility] [place] [facility] [address] [id number] [place] [address] Mar, [facility] [place] [facility] [address] [id number] [place] [address] Mar, [facility] [place] [facility] [address] [id number] [place] [address] Mar, [facility] [place] [facility] [address] [id number] [place] [address] Mar, [facility] [place] [facility] [address] [id number] [place] [address] Mar, [facility] [place] [facility] [address] [id number] [place] [address] Feb, [facility] [place] [facility] [address] [facility] [id number] [place] [address] Jan, [facility] [place] [facility] [address] [id number] [place] [address] Jan, [facility] [place] [facility] [address] [id number] [place] [address] Jan, [facility] [place] [facility] [address] [facility] [id number] [place] [address] Jan, [facility] [place] [facility] [address] [id number] [place] [address] Jan, [facility] [place] [facility] [address] [id number] [place] [address] Dec, [facility] [place] [facility] [address] [id number] [place] [address] Dec, [facility] [place] [facility] [address] [id number] [place] [address] Dec, [facility] [place] [facility] [address] [id number] [place] [address] Dec, [facility] [place] [facility] [address] [id number] [place] [address] Nov, [facility] [place] [facility] [address] [id number] [place] [address] Nov, [facility] [place] [facility] [address] [id number] [place] [address] Nov, [facility] [place] [facility] [address] [id number] [place] [address] October, [facility] [address] [facility] [id number] [place] [address] October, [facility] [address] [facility] [id number] [place] [address] October, [facility] [address] [facility] [id number] [place] [address] Sep, [facility] [address] [facility] [id number] [place] [address] Sep, [facility] [address] [facility] [id number] [place] [address] Aug, [facility] [address] [facility] [id number] [place] [address] Aug, [facility] [address] [facility] [id number] [place] [address] Jul, [facility] [address] [facility] [id number] [place] [address] Jul, [facility] [address] [facility] [id number] [place] [address] Jul, [facility] [address] [facility] [id number] [place] [address] Jul, [facility] [address] [facility] [id number] [place] [address] Jul, [facility] [address] [facility] [id number] [place] [address] Jun, [facility] [address] [facility] [id number] [place] [address] May, [facility] [address] [facility] [id number] [place] [address] 31 May, 2012 [facility] [address] [facility] [id number] [place] [address] 14 May, 2012 [facility] [address] [facility] [id number] [place] [address] 14 May, 2012 [facility] [address] [facility] [id number] [place] [address] May, [facility] [address] [facility] [id number] [place] [address] 13 May, 2012 [facility] [address] [facility] [id number] [place] [address] May, [facility] [address] [facility] [id number] [place] [address] May, [facility] [address] [facility] [id number] [place] [address] Apr, [facility] [address] [facility] [id number] [place] [address] Apr, [facility] [address] [facility] [id number] [place] [address] Apr, [facility] [address] [facility] [id number] [place] [address] Apr, [facility] [address] [facility] [id number] [place] [address] Mar, [facility] [address] [facility] [id number] [place] [address] Mar, [facility] [id number] [place] [address] Mar, [facility] [address] [facility] [id number] [place] [address] Feb, [facility] [address] [facility] [id number] [place] [address] Feb, [facility] [address] [facility] [id number] [place] [address] Jan, [facility] [address] [facility] [id number] [place] [address] Jan, [facility] [address] [facility] [id number] [place] [address] Jan, [facility] [address] [facility] [id number] [place] [address] Dec, [facility] [address] [id number] [place] [address] Dec, [facility] [address] [facility] [id number] [place] [address] Dec, [facility] [address] [facility] [id number] [place] [address] Dec, [facility] [address] [id number] [place] [address] Nov, [facility] [address] [facility] [id number] [place] [address] Nov, [facility] [address] [facility] [id number] [place] [address] Nov, [facility] [address] [facility] [id number] [place] [address] October, [facility] [address] [id number] [place] [address] October, [facility] [address] [id number] [place] [address] October, [facility] [address] [facility] [id number] [place] [address] Sep, [facility] [address] [facility] [id number] [place] [address] Sep, [facility] [address] [id number] [place] [address] Sep, [facility] [address] [id number] [place] [address] 30 Aug, 2011 [facility] [address] [id number] [place] [address] 15 Aug, 2011 [facility] [address] [id number] [place] [address] Aug, [facility] [address] [id number] [place] [address] Jul, [facility] [address] [id number] [place] [address] Jun, [facility] [address] [id number] [place] [address] Jun, [facility] [address] [id number] [place] [address] May, [facility] [address] [id number] [place] [address] May, [facility] [address] [id number] [place] [address] May, [facility] [address] [facility] [id number] [place] [address] May, [facility] [address] [id number] [place] [address] Apr, [facility] [address] [facility] [id number] [place] [address] Apr, [facility] [address] [facility] [id number] [place] [address] Apr, [facility] [address] [facility] [id number] [place] [address] Apr, [facility] [address] [facility] [id number] [place] [address] Apr, [facility] [address] [id number] [place] [address] Mar, [facility] [address] [id number] [place] [address] Mar, [facility] [address] [id number] [place] [address] Jan, [facility] [address] [id number] [place] [address] May, [facility] [address] [id number] [place] [address] Apr, [facility] [address] [id number] [place] [address] Mar[facility] [id number] [place] [address] Jun, [facility] [address] [id number] [place] [address] Apr, [facility] [id number] [place] [address] Apr, IMMUNIZATIONS No Known Immunizations SOCIAL HISTORY Never Assessed REASON FOR VISIT PLAN OF CARE VITAL SIGNS MEDICATIONS Unknown Medications RESULTS No Results PROCEDURES No Known procedures INSTRUCTIONS MEDICATIONS ADMINISTERED No Known Medications MEDICAL (GENERAL) HISTORY Type Description Date Medical History seizures Surgical History No Surgical history information
--- OUTSIDE RECORDS SUMMARY | 2019-09-07 02:29 | XMS REPORT ---
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 Activ e [id number] Problem Impulse control disorder F63.9 Activ e 12568139 Problem Depressive disorder F32.9 Active 49329469 Problem Mild intellectual disabilities F70 Active 38986767 Problem Seasonal allergic rhinitis due to pollen J30.1 Active [id number] ALLERGIES No Information ENCOUNTERS Encounter Location Date Diagnosis [place] [id number] [address] Sep, [place] [address] [address] Jul, Depressive disorder F32.9 [place] [address] [address] Jul, [place] [address] [address] May, [facility] [address] [address] Apr, [place] [address] [address] Apr, Depressive disorder F32.9 ; Impulse cont rol disorder F63.9 and Mild intellectual disabilities F70 [facility] [address] [address] Apr, [place] [address] [address] Apr, [facility] [address] [place] [id number] [place] [address] Apr, [facility] [address] [address] Apr, Impulse control disorder F63.9 ; Depress douglas disorder F32.9 and Mild intellectual disabilities F70 [address] [place] [address] Mar, [facility] [address] [address] Mar, [facility] [address] [address] Mar, Encounter for immunization Z23 [facility] [address] [address] Dec, [facility] [address] [address] Dec, Seasonal allergic rhinitis due to pollen J30.1 [facility] [address] [place] [id number] [place] [address] October, Depressive disorder F32.9 ; Impulse cont rol disorder F63.9 and Mild intellectual disabilities F70 [facility] [address] [place] [id number] [place] [address] Jun, Impulse control disorder F63.9 ; Mild in tellectual disabilities F70 ; Relationship dysfunction Z63.9 and Depressive disorder F32.9 [facility] [address] [place] [id number] [place] [address] Jun, [facility] [address] [address] May, [facility] [address] [address] May, [facility] [address] [address] May, Encounter for immunization Z23 [facility] [address] [address] Apr, [facility] [address] [address] Apr, [facility] [address] [address] Mar, [facility] [address] [address] Mar, [facility] [address] [address] Feb, Annual physical exam Z00.00 [place] [address] [address] 25 Feb, 2018 Annual physical exam Z00.00 ; Mild intel lectual disabilities F70 and Encounter for immunization Z23 [facility] [address] [address] 11 Feb, 2018 [facility] [address] [address] Jan, [facility] [address] [address] Jan, Impulse control disorder F63.9 ; Mild in tellectual disabilities F70 and Depressive disorder F32.9 [facility] [address] [address] Nov, [facility] [address] [address] Nov, [facility] [address] [address] Nov, [facility] [address] [address] Nov, [facility] [address] [address] Nov, [facility] [address] [address] 05 Nov, 2017 Impulse control disorder F63.9 ; Depress douglas disorder F32.9 and Mild intellectual disabilities F70 [facility] [address] [address] October, [facility] [address] [address] October, Impulse control disorder F63.9 ; Depress douglas disorder F32.9 and Mild intellectual disabilities F70 [facility] [address] [place] [id number] Sep, [facility] [address] [address] Sep, Impulse control disorder F63.9 ; Depress douglas disorder F32.9 and Mild intellectual disabilities F70 [facility] [address] [address] Sep, Impulse control disorder F63.9 ; Depress douglas disorder F32.9 and Mild intellectual disabilities F70 [facility] [address] [address] Aug, [facility] [address] [address] Aug, Impulse control disorder F63.9 ; Depress douglas disorder F32.9 and Mild intellectual disabilities F70 [facility] [address] [id number] Aug, Dental examination Z01.20 [facility] [address] [address] Aug, [facility] [address] [address] Aug, Impulse control disorder F63.9 ; Depress douglas disorder F32.9 and Mild intellectual disabilities F70 [facility] [address] [place] [id number] Jul, Impulse control disorder F63.9 ; Depress douglas disorder F32.9 and Mild intellectual disabilities F70 [facility] [address] [id number] Jul, 2017 Dental examination Z01.20 [facility] [address] [address] Jul, [facility] [address] [place] [id number] Jun, Impulse control disorder F63.9 ; Depress douglas disorder F32.9 and Mild intellectual disabilities F70 [facility] [address] [address] Jun, Impulse control disorder F63.9 ; Depress douglas disorder F32.9 and Mild intellectual disabilities F70 [facility] [address] [address] Jun, [facility] [address] [address] 08 May, 2017 [facility] [address] [address] May, Impulse control disorder F63.9 ; Depress douglas disorder F32.9 and Mild intellectual disabilities F70 [facility] [address] [address] Apr, Impulse control disorder F63.9 ; Depress douglas disorder F32.9 and Mild intellectual disabilities F70 [facility] [address] [address] Apr, Seizures R56.9 [place] [address] [address] Apr, [facility] [address] [address] Apr, Seizures R56.9 ; Tobacco abuse Z72.0 ; A lcohol abuse F10.10 and Encounter for immunization Z23 [facility] [address] [address] 14 Apr, 2017 Impulse control disorder F63.9 ; Depress douglas disorder F32.9 and Mild intellectual disabilities F70 [facility] [address] [address] Mar, Impulse control disorder F63.9 ; Depress douglas disorder F32.9 and Mild intellectual disabilities F70 [facility] [address] [address] Mar, [facility] [address] [address] Mar, Impulse control disorder F63.9 ; Depress douglas disorder F32.9 and Mild intellectual disabilities F70 [facility] [address] [address] Mar, [facility] [address] [address] Feb, Impulse control disorder F63.9 ; Depress douglas disorder F32.9 and Mild intellectual disabilities F70 [facility] [address] [address] Feb, [facility] [address] [address] Feb, Impulse control disorder F63.9 ; Depress douglas disorder F32.9 and Mild intellectual disabilities F70 [facility] [address] [address] Jan, Annual physical exam Z00.00 ; Right hand pain M79.641 ; Impulse control disorder F63.9 ; Mild intellectual disabilities F70 and Depressive disorder F32.9 [facility] [address] [address] Jan, Impulse control disorder F63.9 ; Depress douglas disorder F32.9 and Mild intellectual disabilities F70 [facility] [address] [address] Jan, [facility] [address] [address] Jan, Impulse control disorder F63.9 ; Depress douglas disorder F32.9 and Mild intellectual disabilities F70 [facility] [address] [address] Jan, Impulse control disorder F63.9 ; Depress douglas disorder F32.9 and Mild intellectual disabilities F70 [facility] [address] [address] Dec, [facility] [address] [address] Dec, Impulse control disorder F63.9 ; Depress douglas disorder F32.9 and Mild intellectual disabilities F70 [facility] [address] [address] Nov, Impulse control disorder F63.9 ; Depress douglas disorder F32.9 and Mild intellectual disabilities F70 [facility] [address] [address] Nov, [facility] [address] [address] Nov, [facility] [address] [address] Nov, [facility] [address] [address] October, Impulse control disorder F63.9 ; Depress douglas disorder F32.9 and Mild intellectual disabilities F70 [facility] [address] [address] October, [facility] [address] [address] October, Impulse control disorder F63.9 ; Depress douglas disorder F32.9 and Mild intellectual disabilities F70 [facility] [address] [address] Sep, [facility] [address] [address] Sep, Impulse control disorder F63.9 ; Depress douglas disorder F32.9 and Mild intellectual disabilities F70 [facility] [address] [address] Sep, Seasonal allergic rhinitis due to pollen J30.1 [facility] [address] [address] Sep, [facility] [address] [address] Sep, [facility] [address] [address] Sep, Impulse control disorder F63.9 ; Depress douglas disorder F32.9 and Mild intellectual disabilities F70 [facility] [address] [address] Aug, Impulse control disorder F63.9 ; Depress douglas disorder F32.9 and Mild intellectual disabilities F70 [facility] [address] [address] Aug, [facility] [address] [address] Aug, [facility] [address] [address] Jul, [facility] [address] [address] Jul, Impulse control disorder F63.9 ; Depress douglas disorder F32.9 and Mild intellectual disabilities F70 [facility] [address] [facility] [place] [id number] 10 Jul, 2016 Dental examination Z01.20 [facility] [address] [address] Jul, Impulse control disorder F63.9 ; Depress douglas disorder F32.9 and Mild intellectual disabilities F70 [facility] [address] [address] Jul, [facility] [address] [address] Jun, [facility] [address] [address] Jun, Impulse control disorder F63.9 ; Depress douglas disorder F32.9 and Mild intellectual disabilities F70 [facility] [address] [address] Jun, [facility] [address] [address] Jun, [facility] [address] [address] Jun, Impulse control disorder F63.9 ; Depress douglas disorder F32.9 and Mild intellectual disabilities F70 [facility] [address] [address] May, Impulse control disorder F63.9 ; Depress douglas disorder F32.9 and Mild intellectual disabilities F70 [facility] [address] [address] May, Annual physical exam Z00.00 ; Other fati sarah R53.83 ; Seizures R56.9 ; Mild intellectual disabilities F70 and Impulse control disorder F63.9 [facility] [address] [address] May, [facility] [address] [address] May, Impulse control disorder F63.9 ; Depress douglas disorder F32.9 and Mild intellectual disabilities F70 [facility] [address] [facility] [place] [id number] Apr, Encounter for dental examination Z01.20 [facility] [address] [address] Apr, Impulse control disorder F63.9 ; Depress douglas disorder F32.9 and Mild intellectual disabilities F70 [facility] [address] [address] Apr, [facility] [address] [address] Mar, Impulse control disorder F63.9 ; Depress douglas disorder F32.9 and Mild intellectual disabilities F70 [facility] [address] [address] Mar, Impulse control disorder F63.9 ; Depress douglas disorder F32.9 and Mild intellectual disabilities F70 [facility] [address] [address] Mar, [facility] [address] [address] Mar, [facility] [address] [address] Feb, Impulse control disorder F63.9 ; Depress douglas disorder F32.9 and Mild intellectual disabilities F70 [facility] [address] [address] Feb, Impulse control disorder F63.9 ; Depress douglas disorder F32.9 and Mild intellectual disabilities F70 [facility] [address] [address] Feb, [facility] [address] [address] Jan, Annual physical exam Z00.00 ; Impulse co ntrol disorder F63.9 ; Mild intellectual disabilities F70 ; Depressive disorder F32.9 and Seizures R56.9 [facility] [address] [address] Jan, Impulse control disorder F63.9 ; Depress douglas disorder F32.9 and Mild intellectual disabilities F70 [facility] [address] [address] Jan, [facility] [address] [address] Jan, Impulse control disorder F63.9 ; Depress douglas disorder F32.9 and Mild intellectual disabilities F70 [facility] [address] [address] Jan, [facility] [address] [address] Jan, [facility] [address] [address] Dec, Impulse control disorder F63.9 ; Depress douglas disorder F32.9 and Mild intellectual disabilities F70 [facility] [address] [address] Dec, Impulse control disorder F63.9 ; Depress douglas disorder F32.9 and Mild intellectual disabilities F70 [facility] [address] [address] Dec, [facility] [address] [address] Dec, Depressive disorder F32.9 ; Impulse cont rol disorder F63.9 and Mild intellectual disabilities F70 [facility] [address] [address] Nov, [facility] [address] [address] Nov, Depressive disorder F32.9 ; Impulse cont rol disorder F63.9 and Mild intellectual disabilities F70 [facility] [address] [address] Nov, [facility] [address] [address] October, Depressive disorder F32.9 ; Impulse cont rol disorder F63.9 and Mild intellectual disabilities F70 [facility] [address] [address] October, [facility] [address] [address] October, [facility] [address] [address] October, Depressive disorder F32.9 ; Impulse cont rol disorder F63.9 and Mild intellectual disabilities F70 [facility] [address] [address] October, [facility] [address] [address] Sep, [facility] [address] [address] Sep, Depressive disorder F32.9 ; Impulse cont rol disorder F63.9 and Mild intellectual disabilities F70 [facility] [address] [address] Sep, Depressive disorder F32.9 ; Impulse cont rol disorder F63.9 and Mild intellectual disabilities F70 [facility] [address] [address] Sep, [facility] [address] [address] Aug, [facility] [address] [address] Aug, Depressive disorder F32.9 ; Impulse cont rol disorder F63.9 and Mild intellectual disabilities F70 [facility] [address] [address] Aug, Depressive disorder F32.9 ; Impulse cont rol disorder F63.9 and Mild intellectual disabilities F70 [facility] [address] [place] [id number] [place] [id number] Jul, Dental examination Z01.20 [facility] [address] [address] Jul, [facility] [address] [address] Jul, Depressive disorder F32.9 ; Impulse cont rol disorder F63.9 and Mild intellectual disabilities F70 [facility] [address] [address] 05 Jul, 2015 Depressive disorder F32.9 ; Impulse cont rol disorder F63.9 and Mild intellectual disabilities F70 [facility] [address] [address] Jul, Depression screening Z13.89 ; 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, 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 and Screening for STD sexually transmitted disease Z11.3 [facility] [address] [place] [id number] Jun, [facility] [address] [address] Jun, Depressive disorder F32.9 ; Impulse cont rol disorder F63.9 and Mild intellectual disabilities F70 [facility] [address] [address] Jun, Depressive disorder, not elsewhere class ified F32.9 ; Mild mental retardation F70 and Impulse control disorder F63.9 [facility] [address] [address] Jun, Depressive disorder, not elsewhere class ified F32.9 ; Impulse control disorder F63.9 and Mild intellectual disabilities F70 [facility] [address] [address] Jun, [facility] [address] [place] [id number] [place] [id number] Jun, Dental examination Z01.20 [facility] [address] [address] May, Depressive disorder, not elsewhere class ified F32.9 ; Impulse control disorder F63.9 and Mild intellectual disabilities F70 [facility] [address] [address] May, [facility] [address] [address] May, [facility] [address] [address] May, Depressive disorder, not elsewhere class ified F32.9 ; Impulse control disorder F63.9 and Mild intellectual disabilities F70 [facility] [address] [address] May, Depressive disorder, not elsewhere class ified F32.9 ; Impulse control disorder F63.9 and Mild mental retardation F70 [facility] [address] [address] Apr, Depressive disorder, not elsewhere class ified F32.9 ; Impulse control disorder F63.9 and Mild intellectual disabilities F70 [facility] [address] [address] Apr, [facility] [address] [address] Mar, Depressive disorder, not elsewhere class ified F32.9 ; Impulse control disorder F63.9 and Mild intellectual disabilities F70 [facility] [address] [place] [id number] Mar, Depressive disorder, not elsewhere class ified F32.9 ; Impulse control disorder F63.9 and Mild intellectual disabilities F70 [facility] [address] [address] Mar, [facility] [address] [address] Mar, Encounter for immunization Z23 [place] [address] [address] Mar, Depressive disorder, not elsewhere class ified F32.9 ; Impulse control disorder F63.9 and Mild intellectual disabilities F70 [facility] [address] [address] Feb, Depressive disorder, not elsewhere class ified 311 ; Impulse control disorder, unspecified 312.30 and Mild mental retardation 317 [facility] [address] [address] Feb, [facility] [address] [address] Feb, Depressive disorder, not elsewhere class ified 311 ; Impulse control disorder, unspecified 312.30 and Mild mental retardation 317 [facility] [address] [address] Jan, Depressive disorder, not elsewhere class ified 311 ; Impulse control disorder, unspecified 312.30 and Mild mental retardation 317 [place] [address] [address] Jan, Depressive disorder, not elsewhere class ified 311 ; Impulse control disorder, unspecified 312.30 and Mild mental retardation 317 [place] [address] [address] Jan, [place] [address] [address] Jan, Depressive disorder, not elsewhere class ified 311 ; Impulse control disorder, unspecified 312.30 and Mild mental retardation 317 [place] [address] [address] Dec, Depressive disorder, not elsewhere class ified 311 ; Impulse control disorder, unspecified 312.30 and Mild mental retardation 317 [place] [address] [address] Dec, [facility] [address] [place] [id number] [place] [id number] Dec, Dental examination V72.[address] [address] Dec, Heat rash 705.1 ; Seizures 780.39 and Hi gh risk medication use V58.69 [place] [address] [address] Dec, [address] [address] Dec, Depressive disorder, not elsewhere class ified 311 ; Impulse control disorder, unspecified 312.30 and Mild mental retardation 317 [place] [address] [address] Nov, Depressive disorder, not elsewhere class ified 311 ; Impulse control disorder, unspecified 312.30 and Mild mental retardation [address] [place] [address] [address] Nov, [facility] [address] [place] [address] [id number] [place] [address] 15 Nov, 2014 Nicotine addiction 305.1 [facility] [address] [place] [address] [id number] [place] [address] 11 Nov, 2014 [facility] [address] [place] [address] [id number] [place] [address] 11 Nov, 2014 High risk medication use V58.69 [facility] [address] [address] 10 Nov, 2014 High risk medication use V58.69 [facility] [address] [place] [id number] [place] [address] 09 Nov, 2014 Depressive disorder, not elsewhere class ified 311 ; Impulse control disorder, unspecified 312.30 and Mild mental retardation 317 [facility] [address] [place] [id number] [place] [address] Nov, Depressive disorder, not elsewhere class ified 311 ; 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 and Impulse control disorder, unspecified 312.30 [facility] [address] [place] [id number] [place] [address] October, Depressive disorder, not elsewhere class ified 311 ; Impulse control disorder, unspecified 312.30 and Mild mental retardation 317 [facility] [address] [place] [address] [id number] [place] [address] October, [facility] [address] [place] [id number] [place] [address] October, Depressive disorder, not elsewhere class ified 311 ; Impulse control disorder, unspecified 312.30 and Mild mental retardation 317 [facility] [address] [place] [address] [id number] [place] [address] October, [facility] [address] [id number] [place] [id number] October, Dental examination V72.2 [facility] [address] [address] [id number] [place] [address] Sep, Depressive disorder, not elsewhere class ified 311 ; Impulse control disorder 312.30 and Mild mental retardation 317 [facility] [address] [id number] [place] [address] 14 Sep, 2014 [facility] [address] [id number] [place] [address] 13 Sep, 2014 [facility] [address] [id number] [place] [address] 26 Aug, 2014 [facility] [address] [id number] [place] [address] 26 Aug, 2014 [facility] [address] [id number] [place] [address] Aug, [facility] [address] [id number] [place] [address] 18 Aug, 2014 [facility] [address] [id number] [place] [address] Aug, [facility] [place] [facility] [address] [id number] [place] [address] Aug, [facility] [place] [facility] [address] [id number] [place] [address] Aug, [facility] [place] [facility] [address] [id number] [place] [address] Aug[facility] [place] [facility] [address] [id number] [place] [address] Jul, 2014 [facility] [place] [facility] [address] [id number] [place] [address] Jul, 2014 [facility] [place] [facility] [address] [id number] [place] [address] Jul, 2014 [facility] [place] [facility] [address] [id number] [place] [address] Jul, 2014 [facility] [place] [facility] [address] [id number] [place] [address] 16 Jul, 2014 [facility] [place] [facility] [address] [id number] [place] [address] 16 Jul, 2014 [facility] [place] [facility] [address] [id number] [place] [address] Jul, 2014 [facility] [place] [facility] [address] [id number] [place] [address] Jul, 2014 [facility] [place] [facility] [address] [id number] [place] [address] Jul, 2014 [facility] [place] [facility] [address] [id number] [place] [address] Jul, 2014 [facility] [place] [facility] [address] [id number] [place] [address] Jul, [facility] [place] [facility] [address] [id number] [place] [address] Jul, [facility] [place] [facility] [address] [id number] [place] [address] Jul, [facility] [place] [facility] [address] [id number] [place] [address] Jul, [facility] [place] [facility] [address] [id number] [place] [address] Jun, [facility] [place] [facility] [address] [id number] [place] [address] Jun, [facility] [place] [facility] [address] [id number] [place] [address] Jun, [facility] [place] [facility] [address] [id number] [place] [address] Jun, [facility] [place] [facility] [address] [id number] [place] [address] Jun, [facility] [place] [facility] [address] [id number] [place] [address] Jun, [facility] [place] [facility] [address] [id number] [place] [address] Jun, [facility] [place] [facility] [address] [id number] [place] [address] Jun, [facility] [place] [facility] [address] [id number] [place] [address] 15 Jun, 2014 [facility] [place] [facility] [address] [id number] [place] [address] 15 Jun, 2014 [facility] [place] [facility] [address] [id number] [place] [address] Jun, [facility] [place] [facility] [address] [id number] [place] [address] 15 Jun, 2014 [facility] [place] [facility] [address] [id number] [place] [address] 08 Jun, 2014 [facility] [place] [facility] [address] [id number] [place] [address] 08 Jun, 2014 [facility] [place] [facility] [address] [id number] [place] [address] 08 Jun, 2014 [facility] [place] [facility] [address] [id number] [place] [address] 08 Jun, 2014 [facility] [place] [facility] [address] [id number] [place] [address] Jun, [facility] [place] [facility] [address] [id number] [place] [address] 08 Jun, 2014 [facility] [place] [facility] [address] [id number] [place] [address] Jun, [facility] [place] [facility] [address] [id number] [place] [address] 08 Jun, 2014 [facility] [place] [facility] [address] [id number] [place] [address] May, [facility] [place] [facility] [address] [id number] [place] [address] May, [facility] [place] [facility] [address] [id number] [place] [address] May, [facility] [place] [facility] [address] [id number] [place] [address] May, [facility] [place] [facility] [address] [id number] [place] [address] May, [facility] [place] [facility] [address] [id number] [place] [address] Apr, [facility] [place] [facility] [address] [id number] [place] [address] Apr, [facility] [place] [facility] [address] [id number] [place] [address] Apr, [facility] [place] [facility] [address] [id number] [place] [address] Apr, [facility] [place] [facility] [address] [id number] [place] [address] Apr, [facility] [place] [facility] [address] [id number] [place] [address] Apr, [facility] [place] [facility] [address] [id number] [place] [address] Apr, [facility] [place] [facility] [address] [id number] [place] [address] Apr, [facility] [place] [facility] [address] [id number] [place] [address] Mar, [facility] [place] [facility] [address] [id number] [place] [address] Mar, [facility] [place] [facility] [address] [id number] [place] [address] Mar, [facility] [place] [facility] [address] [id number] [place] [address] Mar, [facility] [place] [facility] [address] [id number] [place] [address] Mar, [facility] [place] [facility] [address] [id number] [place] [address] Mar, [facility] [place] [facility] [address] [id number] [place] [address] Mar, [facility] [place] [facility] [address] [id number] [place] [address] Mar, [facility] [place] [facility] [address] [id number] [place] [address] Mar, [facility] [place] [facility] [address] [facility] [id number] [place] [address] 16 Mar, 2013 [facility] [place] [facility] [address] [id number] [place] [address] 16 Mar, 2013 [facility] [place] [facility] [address] [id number] [place] [address] 16 Mar, 2013 [facility] [place] [facility] [address] [id number] [place] [address] 15 Mar, 2014 [facility] [place] [facility] [address] [id number] [place] [address] 15 Mar, 2013 [facility] [place] [facility] [address] [id number] [place] [address] Mar, [facility] [place] [facility] [address] [id number] [place] [address] Mar, 2013 [facility] [place] [facility] [address] [id number] [place] [address] Mar, [facility] [place] [facility] [address] [id number] [place] [address] Mar, [facility] [place] [facility] [address] [id number] [place] [address] Mar, [facility] [place] [facility] [address] [id number] [place] [address] Mar, [facility] [place] [facility] [address] [id number] [place] [address] 24 Feb, 2013 [facility] [place] [facility] [address] [id number] [place] [address] 24 Sep, 2013 [facility] [place] [facility] [address] [id number] [place] [address] 19 Sep, 2013 [facility] [place] [facility] [address] [id number] [place] [address] 19 Feb, 2013 [facility] [place] [facility] [address] [id number] [place] [address] 11 Feb, 2013 [facility] [place] [facility] [address] [id number] [place] [address] Feb, [facility] [place] [facility] [address] [id number] [facility] [place] [address] Feb, [facility] [place] [facility] [address] [facility] [id number] [facility] [place] [address] Feb, [facility] [place] [facility] [address] [facility] [id number] [facility] [place] [address] Jan, [facility] [place] [facility] [address] [facility] [id number] [facility] [place] [address] Jan, [facility] [place] [facility] [address] [facility] [id number] [facility] [place] [address] Jan, [facility] [place] [facility] [address] [facility] [id number] [place] [address] Jan, [facility] [place] [facility] [address] [id number] [place] [address] Dec, [facility] [place] [facility] [address] [id number] [facility] [place] [address] Dec, [facility] [place] [facility] [address] [facility] [id number] [place] [address] Dec, [facility] [place] [facility] [address] [facility] [id number] [place] [address] Dec, [facility] [place] [facility] [address] [facility] [id number] [place] [address] Dec, [facility] [place] [facility] [address] [id number] [place] [address] Dec, [facility] [place] [facility] [address] [facility] [id number] [place] [address] Dec, [facility] [place] [facility] [address] [id number] [place] [address] Dec, [facility] [place] [facility] [address] [facility] [id number] [place] [address] Dec, [facility] [place] [facility] [address] [id number] [place] [address] Dec, [facility] [place] [facility] [address] [facility] [id number] [place] [address] Nov, [facility] [place] [facility] [address] [id number] [place] [address] Nov, [facility] [place] [facility] [address] [facility] [id number] [place] [address] Nov, [facility] [place] [facility] [address] [id number] [place] [address] Nov, [facility] [place] [facility] [address] [facility] [id number] [place] [address] Nov, [facility] [place] [facility] [address] [facility] [id number] [place] [address] Nov, [facility] [place] [facility] [address] [id number] [place] [address] Nov, [facility] [place] [facility] [address] [id number] [place] [address] Nov, [facility] [place] [facility] [address] [id number] [place] [address] Nov, [facility] [place] [facility] [address] [facility] [id number] [place] [address] Nov, [facility] [place] [facility] [address] [id number] [place] [address] Nov, [facility] [place] [facility] [address] [id number] [place] [address] Nov, [facility] [place] [facility] [address] [id number] [place] [address] October, [facility] [place] [facility] [address] [id number] [place] [address] October, [facility] [place] [facility] [address] [id number] [place] [address] October, [facility] [place] [facility] [address] [id number] [place] [address] October, [facility] [place] [facility] [address] [id number] [place] [address] October, [facility] [place] [facility] [address] [id number] [place] [address] October, [facility] [place] [facility] [address] [id number] [place] [address] October, [facility] [place] [facility] [address] [id number] [place] [address] October, [facility] [place] [facility] [address] [id number] [place] [address] October, [facility] [place] [facility] [address] [id number] [place] [address] October, [facility] [place] [facility] [address] [id number] [place] [address] Sep, [facility] [place] [facility] [address] [id number] [place] [address] Sep, [facility] [place] [facility] [address] [id number] [place] [address] Sep, [facility] [place] [facility] [address] [id number] [place] [address] Sep, [facility] [place] [facility] [address] [id number] [place] [address] Sep, [facility] [place] [facility] [address] [id number] [place] [address] Sep, [facility] [place] [facility] [address] [id number] [place] [address] Sep, [facility] [place] [facility] [address] [id number] [place] [address] Sep, [facility] [place] [facility] [address] [id number] [place] [address] Aug, [facility] [place] [facility] [address] [id number] [place] [address] Aug, [facility] [place] [facility] [address] [id number] [place] [address] Aug, [facility] [place] [facility] [address] [id number] [place] [address] Aug, [facility] [place] [facility] [address] [id number] [place] [address] Aug, [facility] [place] [facility] [address] [id number] [place] [address] Aug, [facility] [place] [facility] [address] [id number] [place] [address] Aug, [facility] [place] [facility] [address] [id number] [place] [address] Aug, [facility] [place] [facility] [address] [facility] [id number] [place] [address] Jul, [facility] [place] [facility] [address] [id number] [place] [address] Jul, [facility] [place] [facility] [address] [id number] [place] [address] Jul, [facility] [place] [facility] [address] [id number] [place] [address] Jul, [facility] [place] [facility] [address] [id number] [place] [address] Jul, [facility] [place] [facility] [address] [id number] [place] [address] Jul, [facility] [place] [facility] [address] [id number] [place] [address] Jul, [facility] [place] [facility] [address] [id number] [place] [address] Jul, [facility] [place] [facility] [address] [id number] [place] [address] Jun, [facility] [place] [facility] [address] [id number] [place] [address] Jun, [facility] [place] [facility] [address] [id number] [place] [address] Jun, [facility] [place] [facility] [address] [id number] [place] [address] Jun, [facility] [place] [facility] [address] [id number] [place] [address] 16 Jun, 2013 [facility] [place] [facility] [address] [id number] [place] [address] Jun, [facility] [place] [facility] [address] [id number] [place] [address] Jun, [facility] [place] [facility] [address] [id number] [place] [address] Jun, [facility] [place] [facility] [address] [id number] [place] [address] May, [facility] [place] [facility] [address] [id number] [place] [address] May, [facility] [place] [facility] [address] [id number] [place] [address] May, [facility] [place] [facility] [address] [id number] [place] [address] May, [facility] [place] [facility] [address] [id number] [place] [address] May, [facility] [place] [facility] [address] [id number] [place] [address] May, [facility] [place] [facility] [address] [id number] [place] [address] Apr, [facility] [place] [facility] [address] [id number] [place] [address] Apr, [facility] [place] [facility] [address] [id number] [place] [address] Mar, [facility] [place] [facility] [address] [id number] [place] [address] Mar, [facility] [place] [facility] [id number] [place] [address] Mar, [facility] [place] [facility] [address] [id number] [place] [address] Mar, [facility] [place] [facility] [address] [id number] [place] [address] Mar, [facility] [address] [id number] [facility] [place] [address] Feb, [facility] [address] [facility] [id number] [facility] [place] [address] Jan, [facility] [address] [id number] [facility] [place] [address] Jan, [facility] [address] [id number] [facility] [place] [address] Jan, [facility] [address] [facility] [id number] [facility] [place] [address] Jan, [facility] [address] [id number] [facility] [place] [address] Jan, [facility] [address] [id number] [place] [address] Dec, [facility] [address] [id number] [place] [address] Dec, [facility] [address] [id number] [place] [address] Dec, [facility] [address] [id number] [place] [address] Dec, [facility] [address] [id number] [place] [address] Nov, [facility] [address] [id number] [place] [address] Nov, [facility] [address] [id number] [place] [address] Nov, [facility] [address] [id number] [place] [address] October, [facility] [address] [id number] [place] [address] October, [facility] [address] [id number] [place] [address] October, [facility] [address] [id number] [place] [address] Sep, [facility] [address] [id number] [place] [address] Sep, [facility] [address] [id number] [place] [address] Aug, [facility] [address] [id number] [place] [address] Aug, [facility] [address] [id number] [place] [address] Jul, [facility] [address] [id number] [place] [address] Jul, [facility] [address] [id number] [place] [address] Jul, [facility] [address] [id number] [place] [address] Jul, [facility] [address] [id number] [place] [address] Jul, [facility] [address] [id number] [place] [address] Jun, [facility] [address] [id number] [place] [address] May, [facility] [address] [id number] [place] [address] 31 May, 2012 [facility] [address] [id number] [place] [address] 14 May, 2012 [facility] [address] [id number] [place] [address] 14 May, 2012 [facility] [address] [id number] [place] [address] May, [facility] [address] [id number] [place] [address] 13 May, 2012 [facility] [address] [id number] [place] [address] May, [facility] [address] [id number] [place] [address] May, [facility] [address] [id number] [place] [address] Apr, [facility] [address] [id number] [place] [address] Apr, [facility] [address] [id number] [place] [address] Apr, [facility] [address] [id number] [place] [address] Apr, [facility] [address] [id number] [place] [address] Mar, [facility] [address] [id number] [place] [address] Mar, [facility] [id number] [place] [address] Mar, [facility] [address] [id number] [place] [address] Feb, [facility] [address] [id number] [place] [address] Feb, [facility] [address] [id number] [place] [address] Jan, [facility] [address] [id number] [place] [address] Jan, [facility] [address] [id number] [place] [address] Jan, [facility] [address] [id number] [place] [address] Dec, [facility] [address] [id number] [place] [address] Dec, [facility] [address] [id number] [place] [address] Dec, [facility] [address] [id number] [place] [address] Dec, [facility] [address] [id number] [place] [address] Nov, [facility] [address] [id number] [place] [address] Nov, [facility] [address] [id number] [place] [address] Nov, [facility] [address] [id number] [place] [address] October, [facility] [address] [id number] [place] [address] October, [facility] [address] [id number] [place] [address] October, [facility] [address] [id number] [place] [address] Sep, [facility] [address] [id number] [place] [address] Sep, [facility] [address] [id number] [place] [address] Sep, [facility] [address] [id number] [place] [address] 30 Aug, 2011 [facility] [address] [facility] [id number] [place] [address] 15 Aug, 2011 [facility] [address] [id number] [place] [address] Aug, [facility] [address] [id number] [place] [address] Jul, [facility] [address] [id number] [place] [address] Jun, [facility] [address] [id number] [place] [address] Jun, [facility] [address] [id number] [place] [address] May, [facility] [address] [id number] [place] [address] May, [facility] [address] [id number] [place] [address] May, [facility] [address] [id number] [place] [address] May, [facility] [address] [id number] [place] [address] Apr, [facility] [address] [id number] [place] [address] Apr, [facility] [address] [id number] [place] [address] Apr, [facility] [address] [id number] [place] [address] Apr, [facility] [address] [id number] [place] [address] Apr, [facility] [address] [id number] [place] [address] Mar, [facility] [address] [id number] [place] [address] Mar, [facility] [address] [id number] [place] [address] Jan, [facility] [address] [id number] [place] [address] May, [facility] [address] [id number] [place] [address] Apr, [facility] [address] [id number] [place] [address] Mar, [facility] [id number] [place] [address] Jun, [facility] [address] [id number] [place] [address] Apr, [facility] [id number] [place] [address] Apr, IMMUNIZATIONS No Known Immunizations SOCIAL HISTORY Never Assessed REASON FOR VISIT PLAN OF CARE VITAL SIGNS MEDICATIONS Unknown Medications RESULTS No Results PROCEDURES No Known procedures INSTRUCTIONS MEDICATIONS ADMINISTERED No Known Medications MEDICAL (GENERAL) HISTORY Type Description Date Medical History seizures Surgical History No Surgical history information
--- OUTSIDE RECORDS SUMMARY | 2019-09-07 02:29 | XMS REPORT ---
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 Activ e 500423894 Problem Impulse control disorder F63.9 Activ e 62772167 Problem Depressive disorder F32.9 Active 93325414 Problem Mild intellectual disabilities F70 Active 87930522 Problem Seasonal allergic rhinitis due to pollen J30.1 Active 04106095 ALLERGIES No Information ENCOUNTERS Encounter Location Date Diagnosis [place] [id number] [address] Aug, [place] [address] [address] Jul, Depressive disorder F32.9 [place] [address] [address] Jul, [place] [address] [address] May, [facility] [address] [address] Apr, [place] [address] [address] Apr, Depressive disorder F32.9 ; Impulse cont rol disorder F63.9 and Mild intellectual disabilities F70 [facility] [address] [address] Apr, [place] [address] [address] Apr, [facility] [address] [place] [id number] [place] [address] Apr, [facility] [address] [address] Apr, Impulse control disorder F63.9 ; Depress douglas disorder F32.9 and Mild intellectual disabilities F70 [address] [place] [address] Mar, [facility] [address] [address] Mar, [facility] [address] [address] Mar, Encounter for immunization Z23 [facility] [address] [place] [id number] [place] [address] Dec, [facility] [address] [address] Dec, Seasonal allergic rhinitis due to pollen J30.1 [facility] [address] [id number] [place] [address] October, Depressive disorder F32.9 ; Impulse cont rol disorder F63.9 and Mild intellectual disabilities F70 [facility] [id number] [place] [address] Jun, Impulse control disorder F63.9 ; Mild in tellectual disabilities F70 ; Relationship dysfunction Z63.9 and Depressive disorder F32.9 [facility] [address] [id number] [place] [address] Jun, [facility] [address] [address] May, [facility] [address] [address] May, [facility] [address] [place] [id number] [place] [address] May, Encounter for immunization Z23 [facility] [address] [place] [address] [address] [place] [address] Apr, [facility] [address] [address] Apr, [facility] [address] [address] Mar, [facility] [address] [address] Mar, [facility] [address] [address] Feb, Annual physical exam Z00.00 [place] [address] [address] 25 Feb, 2018 Annual physical exam Z00.00 ; Mild intel lectual disabilities F70 and Encounter for immunization Z23 [facility] [address] [address] 11 Feb, 2018 [facility] [address] [address] Jan, [facility] [address] [address] Jan, Impulse control disorder F63.9 ; Mild in tellectual disabilities F70 and Depressive disorder F32.9 [facility] [address] [address] Nov, [facility] [address] [address] Nov, [facility] [address] [address] Nov, [facility] [address] [address] Nov, [facility] [address] [address] Nov, [facility] [address] [address] 05 Nov, 2017 Impulse control disorder F63.9 ; Depress douglas disorder F32.9 and Mild intellectual disabilities F70 [facility] [address] [address] October, [facility] [address] [address] October, Impulse control disorder F63.9 ; Depress douglas disorder F32.9 and Mild intellectual disabilities F70 [facility] [address] [address] Sep, [facility] [address] [address] Sep, Impulse control disorder F63.9 ; Depress douglas disorder F32.9 and Mild intellectual disabilities F70 [facility] [address] [address] Sep, Impulse control disorder F63.9 ; Depress douglas disorder F32.9 and Mild intellectual disabilities F70 [facility] [address] [address] Aug, [facility] [address] [address] Aug, Impulse control disorder F63.9 ; Depress douglas disorder F32.9 and Mild intellectual disabilities F70 [facility] [address] [id number] Aug, Dental examination Z01.20 [facility] [address] [address] Aug, [facility] [address] [address] Aug, Impulse control disorder F63.9 ; Depress douglas disorder F32.9 and Mild intellectual disabilities F70 [facility] [address] [place] [id number] Jul, Impulse control disorder F63.9 ; Depress douglas disorder F32.9 and Mild intellectual disabilities F70 [facility] [address] [id number] Jul, 2017 Dental examination Z01.20 [facility] [address] [address] Jul, [facility] [address] [place] [id number] Jun, Impulse control disorder F63.9 ; Depress douglas disorder F32.9 and Mild intellectual disabilities F70 [facility] [address] [address] Jun, Impulse control disorder F63.9 ; Depress douglas disorder F32.9 and Mild intellectual disabilities F70 [place] [address] [address] Jun, [facility] [address] [address] 08 May, 2017 [place] [address] [address] May, Impulse control disorder F63.9 ; Depress douglas disorder F32.9 and Mild intellectual disabilities F70 [place] [address] [address] Apr, Impulse control disorder F63.9 ; Depress douglas disorder F32.9 and Mild intellectual disabilities F70 [place] [address] [address] Apr, Seizures R56.9 [place] [address] [address] Apr, [facility] [address] [address] Apr, Seizures R56.9 ; Tobacco abuse Z72.0 ; A lcohol abuse F10.10 and Encounter for immunization Z23 [facility] [address] [address] 14 Apr, 2017 Impulse control disorder F63.9 ; Depress douglas disorder F32.9 and Mild intellectual disabilities F70 [facility] [address] [address] Mar, Impulse control disorder F63.9 ; Depress douglas disorder F32.9 and Mild intellectual disabilities F70 [facility] [address] [address] Mar, [facility] [address] [address] Mar, Impulse control disorder F63.9 ; Depress douglas disorder F32.9 and Mild intellectual disabilities F70 [facility] [address] [address] Mar, [facility] [address] [address] Feb, Impulse control disorder F63.9 ; Depress douglas disorder F32.9 and Mild intellectual disabilities F70 [facility] [address] [address] Feb, [facility] [address] [address] Feb, Impulse control disorder F63.9 ; Depress douglas disorder F32.9 and Mild intellectual disabilities F70 [facility] [address] [address] Jan, Annual physical exam Z00.00 ; Right hand pain M79.641 ; Impulse control disorder F63.9 ; Mild intellectual disabilities F70 and Depressive disorder F32.9 [facility] [address] [address] Jan, Impulse control disorder F63.9 ; Depress douglas disorder F32.9 and Mild intellectual disabilities F70 [facility] [address] [address] Jan, [facility] [address] [address] Jan, Impulse control disorder F63.9 ; Depress douglas disorder F32.9 and Mild intellectual disabilities F70 [facility] [address] [address] Jan, Impulse control disorder F63.9 ; Depress douglas disorder F32.9 and Mild intellectual disabilities F70 [facility] [address] [address] Dec, [facility] [address] [address] Dec, Impulse control disorder F63.9 ; Depress douglas disorder F32.9 and Mild intellectual disabilities F70 [facility] [address] [address] Nov, Impulse control disorder F63.9 ; Depress douglas disorder F32.9 and Mild intellectual disabilities F70 [facility] [address] [address] Nov, [facility] [address] [address] Nov, [facility] [address] [address] Nov, [facility] [address] [address] October, Impulse control disorder F63.9 ; Depress douglas disorder F32.9 and Mild intellectual disabilities F70 [facility] [address] [address] October, [facility] [address] [address] October, Impulse control disorder F63.9 ; Depress douglas disorder F32.9 and Mild intellectual disabilities F70 [facility] [address] [address] Sep, [facility] [address] [address] Sep, Impulse control disorder F63.9 ; Depress douglas disorder F32.9 and Mild intellectual disabilities F70 [facility] [address] [address] Sep, Seasonal allergic rhinitis due to pollen J30.1 [facility] [address] [address] Sep, [facility] [address] [address] Sep, [facility] [address] [address] Sep, Impulse control disorder F63.9 ; Depress douglas disorder F32.9 and Mild intellectual disabilities F70 [facility] [address] [address] Aug, Impulse control disorder F63.9 ; Depress douglas disorder F32.9 and Mild intellectual disabilities F70 [facility] [address] [address] Aug, [facility] [address] [address] Aug, [facility] [address] [address] Jul, [facility] [address] [address] Jul, Impulse control disorder F63.9 ; Depress douglas disorder F32.9 and Mild intellectual disabilities F70 [facility] [address] [id number] [place] [id number] 10 Jul, 2016 Dental examination Z01.20 [facility] [address] [address] Jul, Impulse control disorder F63.9 ; Depress douglas disorder F32.9 and Mild intellectual disabilities F70 [facility] [address] [address] Jul, [facility] [address] [address] Jun, [facility] [address] [address] Jun, Impulse control disorder F63.9 ; Depress douglas disorder F32.9 and Mild intellectual disabilities F70 [facility] [address] [address] Jun, [facility] [address] [address] Jun, [facility] [address] [address] Jun, Impulse control disorder F63.9 ; Depress douglas disorder F32.9 and Mild intellectual disabilities F70 [facility] [address] [address] May, Impulse control disorder F63.9 ; Depress douglas disorder F32.9 and Mild intellectual disabilities F70 [facility] [address] [address] May, Annual physical exam Z00.00 ; Other fati sarah R53.83 ; Seizures R56.9 ; Mild intellectual disabilities F70 and Impulse control disorder F63.9 [facility] [address] [address] May, [facility] [address] [address] May, Impulse control disorder F63.9 ; Depress douglas disorder F32.9 and Mild intellectual disabilities F70 [facility] [address] [id number] [place] [id number] 30 Apr, 2016 Encounter for dental examination Z01.20 [facility] [address] [address] Apr, Impulse control disorder F63.9 ; Depress douglas disorder F32.9 and Mild intellectual disabilities F70 [facility] [address] [address] Apr, [facility] [address] [address] Mar, Impulse control disorder F63.9 ; Depress douglas disorder F32.9 and Mild intellectual disabilities F70 [facility] [address] [address] Mar, Impulse control disorder F63.9 ; Depress douglas disorder F32.9 and Mild intellectual disabilities F70 [facility] [address] [place] [id number] [place] [address] Mar, [facility] [address] [address] Mar, [facility] [address] [address] Feb, Impulse control disorder F63.9 ; Depress douglas disorder F32.9 and Mild intellectual disabilities F70 [facility] [address] [address] Feb, Impulse control disorder F63.9 ; Depress douglas disorder F32.9 and Mild intellectual disabilities F70 [facility] [address] [address] Feb, [facility] [address] [address] Jan, Annual physical exam Z00.00 ; Impulse co ntrol disorder F63.9 ; Mild intellectual disabilities F70 ; Depressive disorder F32.9 and Seizures R56.9 [facility] [address] [address] Jan, Impulse control disorder F63.9 ; Depress douglas disorder F32.9 and Mild intellectual disabilities F70 [facility] [address] [address] Jan, [facility] [address] [address] Jan, Impulse control disorder F63.9 ; Depress douglas disorder F32.9 and Mild intellectual disabilities F70 [facility] [address] [address] Jan, [facility] [address] [address] Jan, [facility] [address] [address] Dec, Impulse control disorder F63.9 ; Depress douglas disorder F32.9 and Mild intellectual disabilities F70 [facility] [address] [address] Dec, Impulse control disorder F63.9 ; Depress douglas disorder F32.9 and Mild intellectual disabilities F70 [facility] [address] [address] Dec, [facility] [address] [address] Dec, Depressive disorder F32.9 ; Impulse cont rol disorder F63.9 and Mild intellectual disabilities F70 [facility] [address] [address] Nov, [facility] [address] [address] Nov, Depressive disorder F32.9 ; Impulse cont rol disorder F63.9 and Mild intellectual disabilities F70 [facility] [address] [address] Nov, [facility] [address] [address] October, Depressive disorder F32.9 ; Impulse cont rol disorder F63.9 and Mild intellectual disabilities F70 [facility] [address] [address] October, [facility] [address] [address] October, [facility] [address] [address] October, Depressive disorder F32.9 ; Impulse cont rol disorder F63.9 and Mild intellectual disabilities F70 [facility] [address] [address] October, [facility] [address] [address] Sep, [facility] [address] [address] Sep, Depressive disorder F32.9 ; Impulse cont rol disorder F63.9 and Mild intellectual disabilities F70 [facility] [address] [address] Sep, Depressive disorder F32.9 ; Impulse cont rol disorder F63.9 and Mild intellectual disabilities F70 [facility] [address] [address] Sep, [facility] [address] [address] Aug, [facility] [address] [address] Aug, Depressive disorder F32.9 ; Impulse cont rol disorder F63.9 and Mild intellectual disabilities F70 [facility] [address] [address] Aug, Depressive disorder F32.9 ; Impulse cont rol disorder F63.9 and Mild intellectual disabilities F70 [facility] [address] [id number] [place] [id number] Jul, Dental examination Z01.20 [facility] [address] [address] Jul, [facility] [address] [address] Jul, Depressive disorder F32.9 ; Impulse cont rol disorder F63.9 and Mild intellectual disabilities F70 [facility] [address] [address] 05 Jul, 2015 Depressive disorder F32.9 ; Impulse cont rol disorder F63.9 and Mild intellectual disabilities F70 [facility] [address] [address] Jul, Depression screening Z13.89 ; 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, 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 and Screening for STD sexually transmitted disease Z11.3 [facility] [address] [place] [id number] Jun, [facility] [address] [address] Jun, Depressive disorder F32.9 ; Impulse cont rol disorder F63.9 and Mild intellectual disabilities F70 [facility] [address] [address] Jun, Depressive disorder, not elsewhere class ified F32.9 ; Mild mental retardation F70 and Impulse control disorder F63.9 [place] [address] [address] Jun, Depressive disorder, not elsewhere class ified F32.9 ; Impulse control disorder F63.9 and Mild intellectual disabilities F70 [facility] [address] [address] Jun, [facility] [address] [place] [id number] [place] [id number] Jun, Dental examination Z01.20 [facility] [address] [address] May, Depressive disorder, not elsewhere class ified F32.9 ; Impulse control disorder F63.9 and Mild intellectual disabilities F70 [facility] [address] [address] May, [facility] [address] [address] May, [facility] [address] [address] May, Depressive disorder, not elsewhere class ified F32.9 ; Impulse control disorder F63.9 and Mild intellectual disabilities F70 [facility] [address] [address] May, Depressive disorder, not elsewhere class ified F32.9 ; Impulse control disorder F63.9 and Mild mental retardation F70 [facility] [address] [address] Apr, Depressive disorder, not elsewhere class ified F32.9 ; Impulse control disorder F63.9 and Mild intellectual disabilities F70 [facility] [address] [address] Apr, [facility] [address] [place] [id number] Mar, Depressive disorder, not elsewhere class ified F32.9 ; Impulse control disorder F63.9 and Mild intellectual disabilities F70 [facility] [address] [place] [id number] Mar, Depressive disorder, not elsewhere class ified F32.9 ; Impulse control disorder F63.9 and Mild intellectual disabilities F70 [facility] [address] [address] Mar, [facility] [address] [address] Mar, Encounter for immunization Z23 [place] [address] [address] Mar, Depressive disorder, not elsewhere class ified F32.9 ; Impulse control disorder F63.9 and Mild intellectual disabilities F70 [facility] [address] [address] Feb, Depressive disorder, not elsewhere class ified 311 ; Impulse control disorder, unspecified 312.30 and Mild mental retardation 317 [facility] [address] [address] Feb, [facility] [address] [address] Feb, Depressive disorder, not elsewhere class ified 311 ; Impulse control disorder, unspecified 312.30 and Mild mental retardation 317 [facility] [address] [address] Jan, Depressive disorder, not elsewhere class ified 311 ; Impulse control disorder, unspecified 312.30 and Mild mental retardation [address] [place] [address] [address] Jan, Depressive disorder, not elsewhere class ified 311 ; Impulse control disorder, unspecified 312.30 and Mild mental retardation 317 [facility] [address] [address] Jan, [place] [address] [address] Jan, Depressive disorder, not elsewhere class ified 311 ; Impulse control disorder, unspecified 312.30 and Mild mental retardation [address] [place] [address] [address] Dec, Depressive disorder, not elsewhere class ified 311 ; Impulse control disorder, unspecified 312.30 and Mild mental retardation [address] [place] [address] [address] Dec, [facility] [address] [id number] [place] [id number] Dec, Dental examination V72.[address] [address] Dec, Heat rash 705.1 ; Seizures 780.39 and Hi gh risk medication use V58.69 [place] [address] [address] Dec, [place] [address] [address] Dec, Depressive disorder, not elsewhere class ified 311 ; Impulse control disorder, unspecified 312.30 and Mild mental retardation [address] [place] [address] [address] Nov, Depressive disorder, not elsewhere class ified 311 ; Impulse control disorder, unspecified 312.30 and Mild mental retardation [address] [place] [address] [address] Nov, [facility] [id number] [place] [address] Nov, Nicotine addiction 305.1 [facility] [id number] [place] [address] 11 Nov, 2014 [facility] [id number] [place] [address] 11 Nov, 2014 High risk medication use V58.69 [facility] [address] [address] 10 Nov, 2014 High risk medication use V58.69 [facility] [id number] [place] [address] 09 Nov, 2014 Depressive disorder, not elsewhere class ified 311 ; Impulse control disorder, unspecified 312.30 and Mild mental retardation 317 [facility] [id number] [place] [address] Nov, Depressive disorder, not elsewhere class ified 311 ; 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 and Impulse control disorder, unspecified 312.30 [facility] [id number] [place] [address] October, Depressive disorder, not elsewhere class ified 311 ; Impulse control disorder, unspecified 312.30 and Mild mental retardation 317 [facility] [id number] [place] [address] October, [facility] [id number] [place] [address] October, Depressive disorder, not elsewhere class ified 311 ; Impulse control disorder, unspecified 312.30 and Mild mental retardation 317 [facility] [id number] [place] [address] October, [facility] [address] [id number] [employer] [id number] October, Dental examination V72.2 [facility] [address] [id number] [place] [address] Sep, Depressive disorder, not elsewhere class ified 311 ; Impulse control disorder 312.30 and Mild mental retardation 317 [facility] [address] [id number] [place] [address] 14 Sep, 2014 [facility] [address] [id number] [place] [address] 13 Sep, 2014 [facility] [place] [facility] [address] [id number] [place] [address] 26 Aug, 2014 [facility] [address] [id number] [place] [address] Aug, [facility] [place] [facility] [address] [id number] [place] [address] Aug, [facility] [place] [facility] [address] [id number] [place] [address] 18 Aug, 2014 [facility] [place] [facility] [address] [id number] [place] [address] Aug, [facility] [place] [facility] [address] [id number] [place] [address] Aug, [facility] [place] [facility] [address] [id number] [place] [address] Aug, [facility] [place] [facility] [address] [id number] [place] [address] Aug, [facility] [place] [facility] [address] [id number] [place] [address] Jul, 2014 [facility] [place] [facility] [address] [id number] [place] [address] Jul, 2014 [facility] [place] [facility] [address] [id number] [place] [address] Jul, 2014 [facility] [place] [facility] [address] [id number] [place] [address] Jul, 2014 [facility] [place] [facility] [address] [id number] [place] [address] 16 Jul, 2014 [facility] [place] [facility] [address] [id number] [place] [address] 16 Jul, 2014 [facility] [place] [facility] [address] [id number] [place] [address] Jul, [facility] [place] [facility] [address] [facility] [id number] [place] [address] Jul, [facility] [place] [facility] [address] [id number] [place] [address] Jul, [facility] [place] [facility] [address] [id number] [place] [address] Jul, [facility] [place] [facility] [address] [id number] [place] [address] Jul, [facility] [place] [facility] [address] [id number] [place] [address] Jul, [facility] [place] [facility] [address] [id number] [place] [address] Jul, [facility] [place] [facility] [address] [id number] [place] [address] Jul, [facility] [place] [facility] [address] [id number] [place] [address] Jun, [facility] [place] [facility] [address] [id number] [place] [address] Jun, [facility] [place] [facility] [address] [id number] [place] [address] Jun, [facility] [place] [facility] [address] [id number] [place] [address] Jun, [facility] [place] [facility] [address] [id number] [place] [address] Jun, [facility] [place] [facility] [address] [id number] [place] [address] Jun, [facility] [place] [facility] [address] [id number] [place] [address] Jun, [facility] [place] [facility] [address] [id number] [place] [address] Jun, [facility] [place] [facility] [address] [id number] [place] [address] 15 Jun, 2014 [facility] [place] [facility] [address] [id number] [place] [address] 15 Jun, 2014 [facility] [place] [facility] [address] [id number] [place] [address] 15 Jun, 2014 [facility] [place] [facility] [address] [id number] [place] [address] 15 Jun, 2014 [facility] [place] [facility] [address] [id number] [place] [address] 08 Jun, 2014 [facility] [place] [facility] [address] [id number] [place] [address] 08 Jun, 2014 [facility] [place] [facility] [address] [id number] [place] [address] 08 Jun, 2014 [facility] [place] [facility] [address] [id number] [place] [address] 08 Jun, 2014 [facility] [place] [facility] [address] [id number] [place] [address] Jun, [facility] [place] [facility] [address] [id number] [place] [address] 08 Jun, 2014 [facility] [place] [facility] [address] [id number] [place] [address] Jun, [facility] [place] [facility] [address] [id number] [place] [address] 08 Jun, 2014 [facility] [place] [facility] [address] [id number] [place] [address] May, [facility] [place] [facility] [address] [id number] [place] [address] May, [facility] [place] [facility] [address] [id number] [place] [address] May, [facility] [place] [facility] [address] [id number] [place] [address] May, [facility] [place] [facility] [address] [id number] [place] [address] May, [facility] [place] [facility] [address] [id number] [place] [address] Apr, [facility] [place] [facility] [address] [id number] [place] [address] Apr, [facility] [place] [facility] [address] [id number] [place] [address] Apr, [facility] [place] [facility] [address] [id number] [place] [address] Apr, [facility] [place] [facility] [address] [id number] [place] [address] Apr, [facility] [place] [facility] [address] [id number] [place] [address] Apr, [facility] [place] [facility] [address] [id number] [place] [address] Apr, [facility] [place] [facility] [address] [id number] [place] [address] Apr, [facility] [place] [facility] [address] [id number] [place] [address] Mar, [facility] [place] [facility] [address] [id number] [place] [address] Mar, [facility] [place] [facility] [address] [id number] [place] [address] Mar, [facility] [place] [facility] [address] [id number] [place] [address] Mar, [facility] [place] [facility] [address] [id number] [place] [address] Mar, [facility] [place] [facility] [address] [id number] [place] [address] Mar, [facility] [place] [facility] [address] [id number] [place] [address] Mar, [facility] [place] [facility] [address] [id number] [place] [address] Mar, [facility] [place] [facility] [address] [id number] [place] [address] Mar, [facility] [place] [facility] [address] [facility] [id number] [place] [address] 16 Mar, 2013 [facility] [place] [facility] [address] [id number] [place] [address] Mar, 2013 [facility] [place] [facility] [address] [id number] [place] [address] Mar, 2013 [facility] [place] [facility] [address] [id number] [place] [address] Mar, [facility] [place] [facility] [address] [id number] [place] [address] Mar, [facility] [place] [facility] [address] [id number] [place] [address] Mar, [facility] [place] [facility] [address] [id number] [place] [address] Mar, 2013 [facility] [place] [facility] [address] [id number] [place] [address] Mar, [facility] [place] [facility] [address] [id number] [place] [address] Mar, [facility] [place] [facility] [address] [id number] [place] [address] Mar, [facility] [place] [facility] [address] [id number] [place] [address] Mar, [facility] [place] [facility] [address] [id number] [place] [address] 24 Feb, 2013 [facility] [place] [facility] [address] [id number] [place] [address] 24 Feb, 2013 [facility] [place] [facility] [address] [id number] [place] [address] 19 Sep, 2013 [facility] [place] [facility] [address] [id number] [place] [address] 19 Feb, 2013 [facility] [place] [facility] [address] [id number] [place] [address] 11 Feb, 2013 [facility] [place] [facility] [address] [id number] [place] [address] Feb, [facility] [place] [facility] [address] [id number] [facility] [place] [address] Feb, [facility] [place] [facility] [address] [facility] [id number] [place] [address] Feb, [facility] [place] [facility] [address] [facility] [id number] [facility] [place] [address] Jan, [facility] [place] [facility] [address] [id number] [facility] [place] [address] Jan, [facility] [place] [facility] [address] [facility] [id number] [facility] [place] [address] Jan, [facility] [place] [facility] [address] [id number] [place] [address] Jan, [facility] [place] [facility] [address] [id number] [place] [address] Dec, [facility] [place] [facility] [address] [id number] [facility] [place] [address] Dec, [facility] [place] [facility] [address] [facility] [id number] [facility] [place] [address] Dec, [facility] [place] [facility] [address] [facility] [id number] [facility] [place] [address] Dec, [facility] [place] [facility] [address] [facility] [id number] [place] [address] Dec, [facility] [place] [facility] [address] [id number] [place] [address] Dec, [facility] [place] [facility] [address] [facility] [id number] [place] [address] Dec, [facility] [place] [facility] [address] [id number] [place] [address] Dec, [facility] [place] [facility] [address] [facility] [id number] [place] [address] Dec, [facility] [place] [facility] [address] [id number] [place] [address] Dec, [facility] [place] [facility] [address] [facility] [id number] [place] [address] Nov, [facility] [place] [facility] [address] [id number] [place] [address] Nov, [facility] [place] [facility] [address] [facility] [id number] [place] [address] Nov, [facility] [place] [facility] [address] [id number] [place] [address] Nov, [facility] [place] [facility] [address] [facility] [id number] [place] [address] Nov, [facility] [place] [facility] [address] [facility] [id number] [place] [address] Nov, [facility] [place] [facility] [address] [id number] [place] [address] Nov, [facility] [place] [facility] [address] [id number] [place] [address] Nov, [facility] [place] [facility] [address] [id number] [place] [address] Nov, [facility] [place] [facility] [address] [id number] [place] [address] Nov, [facility] [place] [facility] [address] [id number] [place] [address] Nov, [facility] [place] [facility] [address] [id number] [place] [address] Nov, [facility] [place] [facility] [address] [id number] [place] [address] October, [facility] [place] [facility] [address] [facility] [id number] [place] [address] October, [facility] [place] [facility] [address] [id number] [place] [address] October, [facility] [place] [facility] [address] [id number] [place] [address] October, [facility] [place] [facility] [address] [id number] [place] [address] October, [facility] [place] [facility] [address] [id number] [place] [address] October, [facility] [place] [facility] [address] [id number] [place] [address] October, [facility] [place] [facility] [address] [id number] [place] [address] October, [facility] [place] [facility] [address] [id number] [place] [address] October, [facility] [place] [facility] [address] [id number] [place] [address] October, [facility] [place] [facility] [address] [id number] [place] [address] Sep, [facility] [place] [facility] [address] [id number] [place] [address] Sep, [facility] [place] [facility] [address] [id number] [place] [address] Sep, [facility] [place] [facility] [address] [id number] [place] [address] Sep, [facility] [place] [facility] [address] [id number] [place] [address] Sep, [facility] [place] [facility] [address] [id number] [place] [address] Sep, [facility] [place] [facility] [address] [id number] [place] [address] Sep, [facility] [place] [facility] [address] [id number] [place] [address] Sep, [facility] [place] [facility] [address] [id number] [place] [address] Aug, [facility] [place] [facility] [address] [id number] [place] [address] Aug, [facility] [place] [facility] [address] [id number] [place] [address] Aug, [facility] [place] [facility] [address] [id number] [place] [address] Aug, [facility] [place] [facility] [address] [facility] [id number] [place] [address] Aug, [facility] [place] [facility] [address] [facility] [id number] [place] [address] Aug, [facility] [place] [facility] [address] [id number] [place] [address] Aug, [facility] [place] [facility] [address] [id number] [place] [address] Aug, [facility] [place] [facility] [address] [facility] [id number] [place] [address] Jul, [facility] [place] [facility] [address] [id number] [place] [address] Jul, [facility] [place] [facility] [address] [id number] [place] [address] Jul, [facility] [place] [facility] [address] [id number] [place] [address] Jul, [facility] [place] [facility] [address] [id number] [place] [address] Jul, [facility] [place] [facility] [address] [id number] [place] [address] Jul, [facility] [place] [facility] [address] [id number] [place] [address] Jul, [facility] [place] [facility] [address] [id number] [place] [address] Jul, [facility] [place] [facility] [address] [id number] [place] [address] Jun, [facility] [place] [facility] [address] [id number] [place] [address] Jun, [facility] [place] [facility] [address] [id number] [place] [address] Jun, [facility] [place] [facility] [address] [id number] [place] [address] Jun, [facility] [place] [facility] [address] [id number] [place] [address] Jun, [facility] [place] [facility] [address] [id number] [place] [address] Jun, [facility] [place] [facility] [address] [id number] [place] [address] Jun, [facility] [place] [facility] [address] [id number] [place] [address] Jun, [facility] [place] [facility] [address] [id number] [place] [address] May, [facility] [place] [facility] [address] [id number] [place] [address] May, [facility] [place] [facility] [address] [id number] [place] [address] May, [facility] [place] [facility] [address] [id number] [place] [address] May, [facility] [place] [facility] [address] [id number] [place] [address] May, [facility] [place] [facility] [address] [id number] [place] [address] May, [facility] [place] [facility] [address] [id number] [place] [address] Apr, [facility] [place] [facility] [address] [id number] [place] [address] Apr, [facility] [place] [facility] [address] [id number] [place] [address] Mar, [facility] [place] [facility] [address] [id number] [place] [address] Mar, [facility] [place] [facility] [address] [id number] [place] [address] Mar, [facility] [place] [facility] [address] [id number] [place] [address] Mar, [facility] [place] [facility] [address] [id number] [place] [address] Mar, [facility] [place] [facility] [address] [facility] [id number] [place] [address] Feb, [facility] [place] [facility] [address] [facility] [id number] [facility] [place] [address] Jan, [facility] [place] [facility] [address] [id number] [place] [address] Jan, [facility] [place] [facility] [address] [id number] [facility] [place] [address] Jan, [facility] [place] [facility] [address] [facility] [id number] [place] [address] Jan, [facility] [place] [facility] [address] [id number] [place] [address] Jan, [facility] [place] [facility] [address] [id number] [place] [address] Dec, [facility] [place] [facility] [address] [id number] [place] [address] Dec, [facility] [place] [facility] [address] [id number] [place] [address] Dec, [facility] [place] [facility] [address] [id number] [place] [address] Dec, [facility] [place] [facility] [address] [id number] [place] [address] Nov, [facility] [place] [facility] [address] [id number] [place] [address] Nov, [facility] [address] [id number] [place] [address] Nov, [facility] [address] [id number] [place] [address] October, [facility] [address] [id number] [place] [address] October, [facility] [address] [id number] [place] [address] October, [facility] [address] [id number] [facility] [place] [address] Sep, [facility] [address] [id number] [place] [address] Sep, [facility] [address] [id number] [place] [address] Aug, [facility] [address] [id number] [place] [address] Aug, [facility] [address] [id number] [place] [address] Jul, [facility] [address] [id number] [place] [address] Jul, [facility] [address] [id number] [place] [address] Jul, [facility] [address] [id number] [place] [address] Jul, [facility] [address] [id number] [place] [address] Jul, [facility] [address] [id number] [place] [address] Jun, [facility] [address] [id number] [place] [address] May, [facility] [address] [id number] [place] [address] 31 May, 2012 [facility] [address] [id number] [place] [address] 14 May, 2012 [facility] [address] [id number] [place] [address] 14 May, 2012 [facility] [address] [id number] [place] [address] May, [facility] [address] [id number] [place] [address] 13 May, 2012 [facility] [address] [id number] [place] [address] May, [facility] [address] [id number] [place] [address] May, [facility] [address] [id number] [place] [address] Apr, [facility] [address] [id number] [place] [address] Apr, [facility] [address] [id number] [place] [address] Apr, [facility] [address] [id number] [place] [address] Apr, [facility] [address] [id number] [place] [address] Mar, [facility] [address] [id number] [place] [address] Mar, [facility] [id number] [place] [address] Mar, [facility] [address] [id number] [place] [address] Feb, [facility] [address] [id number] [place] [address] Feb, [facility] [address] [id number] [place] [address] Jan, [facility] [address] [id number] [place] [address] Jan, [facility] [address] [id number] [place] [address] Jan, [facility] [address] [id number] [place] [address] Dec, [facility] [address] [id number] [place] [address] Dec, [facility] [address] [id number] [place] [address] Dec, [facility] [address] [id number] [place] [address] Dec, [facility] [address] [id number] [place] [address] Nov, [facility] [address] [id number] [place] [address] Nov, [facility] [address] [id number] [place] [address] Nov, [facility] [address] [id number] [place] [address] October, [facility] [address] [id number] [place] [address] October, [facility] [address] [id number] [place] [address] October, [facility] [address] [id number] [place] [address] Sep, [facility] [address] [id number] [place] [address] 14 Sep, 2011 [facility] [address] [id number] [place] [address] Sep, [facility] [address] [id number] [place] [address] 30 Aug, 2011 [facility] [address] [id number] [place] [address] 15 Aug, 2011 [facility] [address] [id number] [place] [address] Aug, [facility] [address] [id number] [place] [address] Jul, [facility] [address] [id number] [place] [address] Jun, [facility] [address] [id number] [place] [address] Jun, [facility] [address] [id number] [place] [address] May, [facility] [address] [id number] [place] [address] May, [facility] [address] [id number] [place] [address] May, [facility] [address] [id number] [place] [address] May, [facility] [address] [id number] [place] [address] Apr, [facility] [id number] [place] [address] Apr, [facility] [address] [id number] [place] [address] Apr, [facility] [address] [id number] [place] [address] Apr, [facility] [id number] [place] [address] Apr, [facility] [id number] [place] [address] Mar, [facility] [address] [id number] [place] [address] Mar, [facility] [id number] [place] [address] Jan, [facility] [address] [id number] [place] [address] May, [facility] [id number] [place] [address] Apr, [facility] [address] [id number] [place] [address] Mar, [facility] [id number] [place] [address] Jun, [facility] [address] [id number] [place] [address] Apr, [facility] [id number] [place] [address] Apr, IMMUNIZATIONS No Known Immunizations SOCIAL HISTORY Never Assessed REASON FOR VISIT PLAN OF CARE VITAL SIGNS MEDICATIONS Unknown Medications RESULTS No Results PROCEDURES No Known procedures INSTRUCTIONS MEDICATIONS ADMINISTERED No Known Medications MEDICAL (GENERAL) HISTORY Type Description Date Medical History seizures Surgical History No Surgical history information
--- OUTSIDE RECORDS SUMMARY | 2019-09-07 02:30 | XMS REPORT ---
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 Activ e 886861405 Problem Impulse control disorder F63.9 Activ e 40708550 Problem Depressive disorder F32.9 Active 83316821 Problem Mild intellectual disabilities F70 Active 23160628 Problem Seasonal allergic rhinitis due to pollen J30.1 Active [id number] ALLERGIES No Information ENCOUNTERS Encounter Location Date Diagnosis [place] [address] [address] Aug, [place] [address] [address] Jul, Depressive disorder F32.9 [place] [address] [address] Jul, [place] [address] [address] May, [place] [address] [address] Apr, [place] [address] [address] Apr, Depressive disorder F32.9 ; Impulse cont rol disorder F63.9 and Mild intellectual disabilities F70 [facility] [address] [address] Apr, [place] [address] [address] Apr, [facility] [address] [place] [id number] [place] [address] Apr, [facility] [address] [address] Apr, Impulse control disorder F63.9 ; Depress douglas disorder F32.9 and Mild intellectual disabilities F70 [address] [place] [address] Mar, [facility] [address] [address] Mar, [facility] [address] [address] Mar, Encounter for immunization Z23 [facility] [address] [address] Dec, [facility] [address] [address] Dec, Seasonal allergic rhinitis due to pollen J30.1 [facility] [address] [place] [id number] [place] [address] October, Depressive disorder F32.9 ; Impulse cont rol disorder F63.9 and Mild intellectual disabilities F70 [facility] [address] [place] [id number] [place] [address] Jun, Impulse control disorder F63.9 ; Mild in tellectual disabilities F70 ; Relationship dysfunction Z63.9 and Depressive disorder F32.9 [facility] [address] [address] [id number] [place] [address] Jun, [facility] [address] [address] May, [facility] [address] [address] May, [facility] [address] [address] May, Encounter for immunization Z23 [facility] [address] [place] [address] Apr, [facility] [address] [address] Apr, [facility] [address] [address] Mar, [facility] [address] [address] Mar, [facility] [address] [address] Feb, Annual physical exam Z00.00 [place] [address] [address] 25 Feb, 2018 Annual physical exam Z00.00 ; Mild intel lectual disabilities F70 and Encounter for immunization Z23 [facility] [address] [address] 11 Feb, 2018 [facility] [address] [address] Jan, [facility] [address] [address] 16 Jan, 2018 Impulse control disorder F63.9 ; Mild in tellectual disabilities F70 and Depressive disorder F32.9 [facility] [address] [address] Nov, [facility] [address] [address] Nov, [facility] [address] [address] Nov, [facility] [address] [address] Nov, [facility] [address] [address] Nov, [facility] [address] [address] 05 Nov, 2017 Impulse control disorder F63.9 ; Depress douglas disorder F32.9 and Mild intellectual disabilities F70 [facility] [address] [address] October, [facility] [address] [address] October, Impulse control disorder F63.9 ; Depress douglas disorder F32.9 and Mild intellectual disabilities F70 [facility] [address] [place] [id number] Sep, [facility] [address] [address] Sep, Impulse control disorder F63.9 ; Depress douglas disorder F32.9 and Mild intellectual disabilities F70 [facility] [address] [address] Sep, Impulse control disorder F63.9 ; Depress douglas disorder F32.9 and Mild intellectual disabilities F70 [facility] [address] [address] Aug, [facility] [address] [address] Aug, Impulse control disorder F63.9 ; Depress douglas disorder F32.9 and Mild intellectual disabilities F70 [facility] [address] [id number] Aug, Dental examination Z01.20 [facility] [address] [address] Aug, [facility] [address] [address] Aug, Impulse control disorder F63.9 ; Depress oduglas disorder F32.9 and Mild intellectual disabilities F70 [facility] [address] [address] Jul, Impulse control disorder F63.9 ; Depress douglas disorder F32.9 and Mild intellectual disabilities F70 [facility] [address] [id number] 12 Jul, 2017 Dental examination Z01.20 [facility] [address] [address] Jul, [facility] [address] [address] Jun, Impulse control disorder F63.9 ; Depress douglas disorder F32.9 and Mild intellectual disabilities F70 [facility] [address] [address] 08 Jun, 2017 Impulse control disorder F63.9 ; Depress douglas disorder F32.9 and Mild intellectual disabilities F70 [facility] [address] [address] Jun, [facility] [address] [address] 08 May, 2017 [facility] [address] [address] May, Impulse control disorder F63.9 ; Depress douglas disorder F32.9 and Mild intellectual disabilities F70 [facility] [address] [address] Apr, Impulse control disorder F63.9 ; Depress douglas disorder F32.9 and Mild intellectual disabilities F70 [facility] [address] [address] Apr, Seizures R56.9 [place] [address] [address] Apr, [facility] [address] [address] Apr, Seizures R56.9 ; Tobacco abuse Z72.0 ; A lcohol abuse F10.10 and Encounter for immunization Z23 [facility] [address] [address] 14 Apr, 2017 Impulse control disorder F63.9 ; Depress douglas disorder F32.9 and Mild intellectual disabilities F70 [facility] [address] [address] Mar, Impulse control disorder F63.9 ; Depress douglas disorder F32.9 and Mild intellectual disabilities F70 [facility] [address] [address] Mar, [facility] [address] [address] Mar, Impulse control disorder F63.9 ; Depress douglas disorder F32.9 and Mild intellectual disabilities F70 [facility] [address] [address] Mar, [facility] [address] [address] Feb, Impulse control disorder F63.9 ; Depress douglas disorder F32.9 and Mild intellectual disabilities F70 [facility] [address] [address] Feb, [facility] [address] [address] Feb, Impulse control disorder F63.9 ; Depress douglas disorder F32.9 and Mild intellectual disabilities F70 [facility] [address] [address] Jan, Annual physical exam Z00.00 ; Right hand pain M79.641 ; Impulse control disorder F63.9 ; Mild intellectual disabilities F70 and Depressive disorder F32.9 [facility] [address] [address] Jan, Impulse control disorder F63.9 ; Depress douglas disorder F32.9 and Mild intellectual disabilities F70 [facility] [address] [address] Jan, [facility] [address] [address] Jan, Impulse control disorder F63.9 ; Depress douglas disorder F32.9 and Mild intellectual disabilities F70 [facility] [address] [place] [address] Jan, Impulse control disorder F63.9 ; Depress douglas disorder F32.9 and Mild intellectual disabilities F70 [facility] [address] [place] [id number] [place] [address] 14 Dec, 2016 [facility] [address] [address] Dec, Impulse control disorder F63.9 ; Depress douglas disorder F32.9 and Mild intellectual disabilities F70 [facility] [address] [address] Nov, Impulse control disorder F63.9 ; Depress douglas disorder F32.9 and Mild intellectual disabilities F70 [facility] [address] [address] Nov, [facility] [address] [address] Nov, [facility] [address] [address] Nov, [facility] [address] [address] October, Impulse control disorder F63.9 ; Depress douglas disorder F32.9 and Mild intellectual disabilities F70 [facility] [address] [address] October, [facility] [address] [address] October, Impulse control disorder F63.9 ; Depress douglas disorder F32.9 and Mild intellectual disabilities F70 [facility] [address] [address] Sep, [facility] [address] [address] Sep, Impulse control disorder F63.9 ; Depress douglas disorder F32.9 and Mild intellectual disabilities F70 [facility] [address] [address] Sep, Seasonal allergic rhinitis due to pollen J30.1 [facility] [address] [address] Sep, [facility] [address] [address] Sep, [facility] [address] [address] Sep, Impulse control disorder F63.9 ; Depress douglas disorder F32.9 and Mild intellectual disabilities F70 [facility] [address] [address] Aug, Impulse control disorder F63.9 ; Depress douglas disorder F32.9 and Mild intellectual disabilities F70 [facility] [address] [address] Aug, [facility] [address] [address] Aug, [facility] [address] [address] Jul, [facility] [address] [address] Jul, Impulse control disorder F63.9 ; Depress douglas disorder F32.9 and Mild intellectual disabilities F70 [facility] [address] [facility] [place] [id number] 10 Jul, 2016 Dental examination Z01.20 [facility] [address] [address] Jul, Impulse control disorder F63.9 ; Depress douglas disorder F32.9 and Mild intellectual disabilities F70 [facility] [address] [address] Jul, [facility] [address] [address] Jun, [facility] [address] [address] Jun, Impulse control disorder F63.9 ; Depress douglas disorder F32.9 and Mild intellectual disabilities F70 [facility] [address] [address] Jun, [facility] [address] [address] Jun, [facility] [address] [address] Jun, Impulse control disorder F63.9 ; Depress douglas disorder F32.9 and Mild intellectual disabilities F70 [facility] [address] [address] May, Impulse control disorder F63.9 ; Depress douglas disorder F32.9 and Mild intellectual disabilities F70 [facility] [address] [address] May, Annual physical exam Z00.00 ; Other fati sarah R53.83 ; Seizures R56.9 ; Mild intellectual disabilities F70 and Impulse control disorder F63.9 [facility] [address] [address] May, [facility] [address] [address] May, Impulse control disorder F63.9 ; Depress douglas disorder F32.9 and Mild intellectual disabilities F70 [facility] [address] [place] [id number] [place] [id number] 30 Apr, 2016 Encounter for dental examination Z01.20 [facility] [address] [address] Apr, Impulse control disorder F63.9 ; Depress douglas disorder F32.9 and Mild intellectual disabilities F70 [facility] [address] [address] Apr, [facility] [address] [address] Mar, Impulse control disorder F63.9 ; Depress douglas disorder F32.9 and Mild intellectual disabilities F70 [facility] [address] [address] Mar, Impulse control disorder F63.9 ; Depress douglas disorder F32.9 and Mild intellectual disabilities F70 [facility] [address] [place] [id number] [place] [address] Mar, [facility] [address] [address] Mar, [facility] [address] [address] Feb, Impulse control disorder F63.9 ; Depress douglas disorder F32.9 and Mild intellectual disabilities F70 [facility] [address] [address] Feb, Impulse control disorder F63.9 ; Depress douglas disorder F32.9 and Mild intellectual disabilities F70 [facility] [address] [address] Feb, [facility] [address] [address] Jan, Annual physical exam Z00.00 ; Impulse co ntrol disorder F63.9 ; Mild intellectual disabilities F70 ; Depressive disorder F32.9 and Seizures R56.9 [facility] [address] [address] Jan, Impulse control disorder F63.9 ; Depress douglas disorder F32.9 and Mild intellectual disabilities F70 [facility] [address] [address] Jan, [facility] [address] [address] Jan, Impulse control disorder F63.9 ; Depress douglas disorder F32.9 and Mild intellectual disabilities F70 [facility] [address] [address] Jan, [facility] [address] [address] Jan, [facility] [address] [address] Dec, Impulse control disorder F63.9 ; Depress douglas disorder F32.9 and Mild intellectual disabilities F70 [facility] [address] [address] Dec, Impulse control disorder F63.9 ; Depress douglas disorder F32.9 and Mild intellectual disabilities F70 [facility] [address] [address] Dec, [facility] [address] [address] Dec, Depressive disorder F32.9 ; Impulse cont rol disorder F63.9 and Mild intellectual disabilities F70 [facility] [address] [address] Nov, [facility] [address] [address] Nov, Depressive disorder F32.9 ; Impulse cont rol disorder F63.9 and Mild intellectual disabilities F70 [facility] [address] [address] Nov, [facility] [address] [address] October, Depressive disorder F32.9 ; Impulse cont rol disorder F63.9 and Mild intellectual disabilities F70 [facility] [address] [address] October, [facility] [address] [address] October, [facility] [address] [address] October, Depressive disorder F32.9 ; Impulse cont rol disorder F63.9 and Mild intellectual disabilities F70 [facility] [address] [address] October, [facility] [address] [address] Sep, [facility] [address] [address] Sep, Depressive disorder F32.9 ; Impulse cont rol disorder F63.9 and Mild intellectual disabilities F70 [facility] [address] [address] Sep, Depressive disorder F32.9 ; Impulse cont rol disorder F63.9 and Mild intellectual disabilities F70 [facility] [address] [address] Sep, [facility] [address] [address] Aug, [facility] [address] [address] Aug, Depressive disorder F32.9 ; Impulse cont rol disorder F63.9 and Mild intellectual disabilities F70 [facility] [address] [address] Aug, Depressive disorder F32.9 ; Impulse cont rol disorder F63.9 and Mild intellectual disabilities F70 [facility] [address] [place] [id number] Jul, Dental examination Z01.20 [facility] [address] [address] Jul, [facility] [address] [address] Jul, Depressive disorder F32.9 ; Impulse cont rol disorder F63.9 and Mild intellectual disabilities F70 [facility] [address] [address] 05 Jul, 2015 Depressive disorder F32.9 ; Impulse cont rol disorder F63.9 and Mild intellectual disabilities F70 [facility] [address] [address] 02 Jul, 2015 Depression screening Z13.89 ; 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, 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 and Screening for STD sexually transmitted disease Z11.3 [facility] [address] [place] [address] Jun, [facility] [address] [address] Jun, Depressive disorder F32.9 ; Impulse cont rol disorder F63.9 and Mild intellectual disabilities F70 [facility] [address] [address] Jun, Depressive disorder, not elsewhere class ified F32.9 ; Mild mental retardation F70 and Impulse control disorder F63.9 [place] [address] [address] Jun, Depressive disorder, not elsewhere class ified F32.9 ; Impulse control disorder F63.9 and Mild intellectual disabilities F70 [facility] [address] [address] Jun, [facility] [address] [place] [id number] Jun, Dental examination Z01.20 [facility] [address] [address] May, Depressive disorder, not elsewhere class ified F32.9 ; Impulse control disorder F63.9 and Mild intellectual disabilities F70 [facility] [address] [address] May, [facility] [address] [address] May, [facility] [address] [address] May, Depressive disorder, not elsewhere class ified F32.9 ; Impulse control disorder F63.9 and Mild intellectual disabilities F70 [facility] [address] [address] May, Depressive disorder, not elsewhere class ified F32.9 ; Impulse control disorder F63.9 and Mild mental retardation F70 [facility] [address] [address] Apr, Depressive disorder, not elsewhere class ified F32.9 ; Impulse control disorder F63.9 and Mild intellectual disabilities F70 [facility] [address] [address] Apr, [facility] [address] [address] Mar, Depressive disorder, not elsewhere class ified F32.9 ; Impulse control disorder F63.9 and Mild intellectual disabilities F70 [facility] [address] [address] Mar, Depressive disorder, not elsewhere class ified F32.9 ; Impulse control disorder F63.9 and Mild intellectual disabilities F70 [facility] [address] [address] Mar, [facility] [address] [address] Mar, Encounter for immunization Z23 [facility] [address] [address] Mar, Depressive disorder, not elsewhere class ified F32.9 ; Impulse control disorder F63.9 and Mild intellectual disabilities F70 [facility] [address] [address] Feb, Depressive disorder, not elsewhere class ified 311 ; Impulse control disorder, unspecified 312.30 and Mild mental retardation 317 [facility] [address] [address] Feb, [facility] [address] [address] Feb, Depressive disorder, not elsewhere class ified 311 ; Impulse control disorder, unspecified 312.30 and Mild mental retardation 317 [facility] [address] [address] Jan, Depressive disorder, not elsewhere class ified 311 ; Impulse control disorder, unspecified 312.30 and Mild mental retardation 317 [place] [address] [address] Jan, Depressive disorder, not elsewhere class ified 311 ; Impulse control disorder, unspecified 312.30 and Mild mental retardation 317 [place] [address] [address] Jan, [place] [address] [address] Jan, Depressive disorder, not elsewhere class ified 311 ; Impulse control disorder, unspecified 312.30 and Mild mental retardation 317 [place] [address] [address] Dec, Depressive disorder, not elsewhere class ified 311 ; Impulse control disorder, unspecified 312.30 and Mild mental retardation [address] [place] [address] [address] Dec, [facility] [address] [place] [id number] Dec, Dental examination V72.[address] [address] Dec, Heat rash 705.1 ; Seizures 780.39 and Hi gh risk medication use V58.69 [place] [address] [address] Dec, [place] [address] [address] Dec, Depressive disorder, not elsewhere class ified 311 ; Impulse control disorder, unspecified 312.30 and Mild mental retardation [address] [place] [address] [address] Nov, Depressive disorder, not elsewhere class ified 311 ; Impulse control disorder, unspecified 312.30 and Mild mental retardation [address] [place] [address] [address] Nov, [facility] [id number] [place] [address] Nov, Nicotine addiction 305.1 [facility] [id number] [place] [address] 11 Nov, 2014 [facility] [id number] [place] [address] 11 Nov, 2014 High risk medication use V58.69 [facility] [address] [address] 10 Nov, 2014 High risk medication use V58.69 [facility] [id number] [place] [address] 09 Nov, 2014 Depressive disorder, not elsewhere class ified 311 ; Impulse control disorder, unspecified 312.30 and Mild mental retardation 317 [facility] [id number] [place] [address] Nov, Depressive disorder, not elsewhere class ified 311 ; 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 and Impulse control disorder, unspecified 312.30 [facility] [id number] [place] [address] October, Depressive disorder, not elsewhere class ified 311 ; Impulse control disorder, unspecified 312.30 and Mild mental retardation 317 [facility] [id number] [place] [address] October, [facility] [id number] [place] [address] October, Depressive disorder, not elsewhere class ified 311 ; Impulse control disorder, unspecified 312.30 and Mild mental retardation 317 [facility] [id number] [place] [address] October, [facility] [address] [id number] [place] [id number] October, Dental examination V72.2 [facility] [id number] [place] [address] Sep, Depressive disorder, not elsewhere class ified 311 ; Impulse control disorder 312.30 and Mild mental retardation 317 [facility] [address] [id number] [place] [address] 14 Sep, 2014 [facility] [address] [id number] [place] [address] 13 Sep, 2014 [facility] [address] [id number] [place] [address] 26 Aug, 2014 [facility] [address] [id number] [place] [address] 26 Aug, 2014 [facility] [address] [id number] [place] [address] Aug, [facility] [address] [id number] [place] [address] 18 Aug, 2014 [facility] [address] [id number] [place] [address] Aug, [facility] [address] [id number] [place] [id number] Aug, [facility] [place] [facility] [id number] [place] [id number] Aug, [facility] [place] [facility] [id number] [place] [address] Aug, [facility] [place] [facility] [id number] [place] [address] Jul, 2014 [facility] [place] [facility] [id number] [place] [id number] Jul, 2014 [facility] [place] [facility] [id number] [place] [address] Jul, 2014 [facility] [place] [facility] [id number] [place] [id number] Jul, 2014 [facility] [place] [facility] [id number] [place] [address] 16 Jul, 2014 [facility] [place] [facility] [id number] [place] [address] 16 Jul, 2014 [facility] [place] [facility] [id number] [place] [id number] Jul, 2014 [facility] [place] [facility] [address] [facility] [id number] [place] [address] Jul, 2014 [facility] [place] [facility] [id number] [place] [address] Jul, 2014 [facility] [place] [facility] [id number] [place] [address] Jul, 2014 [facility] [place] [facility] [id number] [place] [address] Jul, [facility] [place] [facility] [id number] [place] [address] Jul, [facility] [place] [facility] [id number] [place] [address] Jul, [facility] [place] [facility] [id number] [place] [address] Jul, [facility] [place] [facility] [id number] [place] [address] Jun, [facility] [place] [facility] [id number] [place] [address] Jun, [facility] [place] [facility] [id number] [place] [address] Jun, [facility] [place] [facility] [id number] [place] [address] Jun, [facility] [place] [facility] [id number] [place] [address] Jun, [facility] [place] [facility] [id number] [place] [address] Jun, [facility] [place] [facility] [id number] [place] [address] Jun, [facility] [place] [facility] [id number] [place] [address] Jun, [facility] [place] [facility] [id number] [place] [id number] 15 Jun, 2014 [facility] [place] [facility] [id number] [place] [address] 15 Jun, 2014 [facility] [place] [facility] [id number] [place] [address] 15 Jun, 2014 [facility] [place] [facility] [id number] [place] [address] 15 Jun, 2014 [facility] [place] [facility] [id number] [place] [id number] 08 Jun, 2014 [facility] [place] [facility] [id number] [place] [id number] 08 Jun, 2014 [facility] [place] [facility] [id number] [place] [address] 08 Jun, 2014 [facility] [place] [facility] [id number] [place] [id number] 08 Jun, 2014 [facility] [place] [facility] [id number] [place] [address] 08 Jun, 2014 [facility] [place] [facility] [id number] [place] [id number] 08 Jun, 2014 [facility] [place] [facility] [id number] [place] [address] Jun, [facility] [place] [facility] [id number] [place] [address] 08 Jun, 2014 [facility] [place] [facility] [id number] [place] [address] May, [facility] [place] [facility] [id number] [place] [address] May, [facility] [place] [facility] [id number] [place] [address] May, [facility] [place] [facility] [id number] [place] [address] May, [facility] [place] [facility] [id number] [place] [address] May, [facility] [place] [facility] [id number] [place] [address] Apr, [facility] [place] [facility] [id number] [place] [address] Apr, [facility] [place] [facility] [id number] [place] [address] Apr, [facility] [place] [facility] [id number] [place] [address] Apr, [facility] [place] [facility] [id number] [place] [address] Apr, [facility] [place] [facility] [id number] [place] [address] Apr, [facility] [place] [facility] [id number] [place] [address] Apr, [facility] [place] [facility] [id number] [place] [address] Apr, [facility] [place] [facility] [id number] [place] [address] Mar, [facility] [place] [facility] [id number] [place] [address] Mar, [facility] [place] [facility] [id number] [place] [address] Mar, [facility] [place] [facility] [id number] [place] [address] Mar, [facility] [place] [facility] [id number] [place] [address] Mar, [facility] [place] [facility] [id number] [place] [address] Mar, [facility] [place] [facility] [id number] [place] [address] Mar, [facility] [place] [facility] [id number] [place] [address] Mar, [facility] [place] [facility] [id number] [place] [address] Mar, [facility] [place] [facility] [id number] [place] [address] 16 Mar, 2013 [facility] [place] [facility] [id number] [place] [id number] 16 Mar, 2013 [facility] [place] [facility] [id number] [place] [address] 16 Mar, 2013 [facility] [place] [facility] [id number] [place] [address] 15 Mar, 2013 [facility] [place] [facility] [id number] [place] [address] 15 Mar, 2013 [facility] [place] [facility] [id number] [place] [address] Mar, 2013 [facility] [place] [facility] [id number] [place] [address] Mar, 2013 [facility] [place] [facility] [id number] [place] [address] Mar, 2013 [facility] [place] [facility] [id number] [place] [address] Mar, 2013 [facility] [place] [facility] [id number] [place] [address] Mar, [facility] [place] [facility] [id number] [place] [address] Mar, 2013 [facility] [place] [facility] [id number] [place] [address] 24 Feb, 2013 [facility] [place] [facility] [id number] [place] [address] 24 Sep, 2013 [facility] [place] [facility] [id number] [place] [id number] 19 Sep, 2013 [facility] [place] [facility] [id number] [place] [address] 19 Sep, 2013 [facility] [place] [facility] [id number] [place] [address] 11 Sep, 2013 [facility] [place] [facility] [id number] [place] [address] Feb, [facility] [place] [facility] [address] [facility] [id number] [facility] [place] [address] Feb, [facility] [place] [facility] [address] [facility] [id number] [facility] [place] [address] Feb, [facility] [place] [facility] [address] [facility] [id number] [facility] [place] [address] Jan, [facility] [place] [facility] [address] [facility] [id number] [place] [address] Jan, [facility] [place] [facility] [address] [facility] [id number] [facility] [place] [address] Jan, [facility] [place] [facility] [address] [facility] [id number] [place] [address] Jan, [facility] [place] [facility] [address] [facility] [id number] [place] [address] Dec, [facility] [place] [facility] [id number] [facility] [place] [address] Dec, [facility] [place] [facility] [address] [facility] [id number] [place] [address] Dec, [facility] [place] [facility] [address] [facility] [id number] [facility] [place] [address] Dec, [facility] [place] [facility] [address] [facility] [id number] [place] [address] Dec, [facility] [place] [facility] [id number] [place] [address] Dec, [facility] [place] [facility] [address] [facility] [id number] [place] [address] Dec, [facility] [place] [facility] [address] [facility] [id number] [place] [address] Dec, [facility] [place] [facility] [address] [facility] [id number] [place] [address] Dec, [facility] [place] [facility] [address] [facility] [id number] [facility] [place] [address] Dec, [facility] [place] [facility] [address] [facility] [id number] [place] [address] Nov, [facility] [place] [facility] [address] [id number] [place] [address] Nov, [facility] [place] [facility] [address] [facility] [id number] [place] [address] Nov, [facility] [place] [facility] [id number] [place] [address] Nov, [facility] [place] [facility] [address] [facility] [id number] [place] [address] Nov, [facility] [place] [facility] [address] [facility] [id number] [place] [address] Nov, [facility] [place] [facility] [id number] [place] [address] Nov, [facility] [place] [facility] [id number] [place] [address] Nov, [facility] [place] [facility] [id number] [place] [address] Nov, [facility] [place] [facility] [id number] [place] [address] Nov, [facility] [place] [facility] [id number] [place] [address] Nov, [facility] [place] [facility] [id number] [place] [address] Nov, [facility] [place] [facility] [id number] [place] [address] October, [facility] [place] [facility] [address] [id number] [place] [address] October, [facility] [place] [facility] [address] [id number] [place] [address] October, [facility] [place] [facility] [id number] [place] [address] October, [facility] [place] [facility] [id number] [place] [address] October, [facility] [place] [facility] [id number] [place] [address] October, [facility] [place] [facility] [id number] [place] [address] October, [facility] [place] [facility] [id number] [place] [address] October, [facility] [place] [facility] [id number] [place] [address] October, [facility] [place] [facility] [id number] [place] [address] October, [facility] [place] [facility] [id number] [place] [address] Sep, [facility] [place] [facility] [id number] [place] [address] Sep, [facility] [place] [facility] [id number] [place] [address] Sep, [facility] [place] [facility] [id number] [place] [address] Sep, [facility] [place] [facility] [id number] [place] [address] Sep, [facility] [place] [facility] [id number] [place] [address] Sep, [facility] [place] [facility] [id number] [place] [address] Sep, [facility] [place] [facility] [id number] [place] [address] Sep, [facility] [place] [facility] [id number] [place] [address] Aug, [facility] [place] [facility] [id number] [place] [address] Aug, [facility] [place] [facility] [address] [id number] [place] [address] Aug, [facility] [place] [facility] [id number] [place] [address] Aug, [facility] [place] [facility] [id number] [place] [address] Aug, [facility] [place] [facility] [id number] [place] [address] Aug, [facility] [place] [facility] [id number] [place] [address] Aug, [facility] [place] [facility] [id number] [place] [address] Aug, [facility] [place] [facility] [id number] [place] [address] Jul, [facility] [place] [facility] [id number] [place] [address] Jul, [facility] [place] [facility] [id number] [place] [address] Jul, [facility] [place] [facility] [id number] [place] [address] Jul, [facility] [place] [facility] [id number] [place] [address] Jul, [facility] [place] [facility] [id number] [place] [address] Jul, [facility] [place] [facility] [id number] [place] [address] Jul, [facility] [place] [facility] [id number] [place] [address] Jul, [facility] [place] [facility] [id number] [place] [address] Jun, [facility] [place] [facility] [address] [id number] [place] [address] Jun, [facility] [place] [facility] [address] [id number] [place] [address] Jun, [facility] [place] [facility] [address] [id number] [place] [address] Jun, [facility] [place] [facility] [address] [id number] [place] [address] 16 Jun, 2013 [facility] [place] [facility] [id number] [place] [address] Jun, [facility] [place] [facility] [id number] [place] [address] Jun, [facility] [place] [facility] [address] [id number] [place] [address] Jun, [facility] [place] [facility] [address] [id number] [place] [address] May, [facility] [place] [facility] [address] [id number] [place] [address] May, [facility] [place] [facility] [address] [id number] [place] [address] May, [facility] [place] [facility] [address] [id number] [place] [address] May, [facility] [place] [facility] [address] [id number] [place] [address] May, [facility] [place] [facility] [address] [id number] [place] [address] May, [facility] [place] [facility] [address] [id number] [place] [address] Apr, [facility] [place] [facility] [address] [id number] [place] [address] Apr, [facility] [place] [facility] [address] [id number] [place] [address] Mar, [facility] [place] [facility] [address] [id number] [place] [address] Mar, [facility] [place] [facility] [id number] [place] [address] Mar, [facility] [place] [facility] [address] [facility] [id number] [place] [address] Mar, [facility] [place] [facility] [address] [id number] [place] [address] Mar, [facility] [place] [facility] [address] [id number] [place] [address] Feb, [facility] [place] [facility] [address] [facility] [id number] [facility] [place] [address] Jan, [facility] [place] [facility] [address] [facility] [id number] [place] [address] Jan, [facility] [place] [facility] [address] [facility] [id number] [place] [address] Jan, [facility] [place] [facility] [address] [facility] [id number] [place] [address] Jan, [facility] [place] [facility] [address] [facility] [id number] [place] [address] Jan, [facility] [place] [facility] [address] [facility] [id number] [place] [address] Dec, [facility] [place] [facility] [address] [facility] [id number] [place] [address] Dec, [facility] [place] [facility] [address] [facility] [id number] [place] [address] Dec, [facility] [place] [facility] [address] [facility] [id number] [place] [address] Dec, [facility] [place] [facility] [address] [facility] [id number] [place] [address] Nov, [facility] [place] [facility] [address] [facility] [id number] [place] [address] Nov, [facility] [place] [facility] [address] [facility] [id number] [place] [address] Nov, [facility] [place] [facility] [address] [facility] [id number] [place] [address] October, [facility] [place] [facility] [address] [facility] [id number] [place] [address] October, [facility] [place] [facility] [address] [facility] [id number] [place] [address] October, [facility] [place] [facility] [address] [facility] [id number] [place] [address] Sep, [facility] [place] [facility] [address] [facility] [id number] [place] [address] Sep, [facility] [place] [facility] [address] [facility] [id number] [place] [address] Aug, [facility] [place] [facility] [address] [facility] [id number] [place] [address] Aug, [facility] [place] [facility] [address] [id number] [place] [address] Jul, [facility] [place] [facility] [address] [facility] [id number] [place] [address] Jul, [facility] [place] [facility] [address] [id number] [place] [address] Jul, [facility] [place] [facility] [address] [facility] [id number] [place] [address] Jul, [facility] [place] [facility] [address] [id number] [place] [address] Jul, [facility] [place] [facility] [address] [facility] [id number] [place] [address] Jun, [facility] [place] [facility] [address] [id number] [place] [address] May, [facility] [place] [facility] [address] [facility] [id number] [place] [address] 31 May, 2012 [facility] [place] [facility] [address] [facility] [id number] [place] [address] 14 May, 2012 [facility] [place] [facility] [address] [id number] [place] [address] 14 May, 2012 [facility] [place] [facility] [address] [id number] [place] [id number] 13 May, 2012 [facility] [place] [facility] [address] [id number] [place] [address] 13 May, 2012 [facility] [place] [facility] [address] [facility] [id number] [place] [address] May, [facility] [place] [facility] [address] [facility] [id number] [place] [address] May, [facility] [place] [facility] [address] [facility] [id number] [place] [address] Apr, [facility] [place] [facility] [address] [facility] [id number] [place] [address] Apr, [facility] [place] [facility] [address] [id number] [place] [address] Apr, [facility] [place] [facility] [address] [id number] [place] [address] Apr, [facility] [place] [facility] [address] [id number] [place] [address] Mar, [facility] [place] [facility] [address] [id number] [place] [address] Mar, [facility] [place] [facility] [address] [id number] [place] [address] Mar, [facility] [place] [facility] [address] [id number] [place] [address] Feb, [facility] [place] [facility] [address] [id number] [place] [address] Feb, [facility] [place] [facility] [address] [id number] [place] [address] Jan, [facility] [place] [facility] [address] [id number] [place] [address] Jan, [facility] [place] [facility] [address] [id number] [place] [address] Jan, [facility] [place] [facility] [address] [id number] [place] [address] Dec, [facility] [place] [facility] [address] [id number] [place] [address] Dec, [facility] [place] [facility] [address] [id number] [place] [address] Dec, [facility] [place] [facility] [id number] [place] [id number] Dec, [facility] [id number] [place] [id number] Nov, [facility] [id number] [place] [id number] Nov, [facility] [id number] [place] [id number] Nov, [facility] [id number] [place] [id number] October, [facility] [id number] [place] [id number] October, [facility] [id number] [place] [id number] October, [facility] [id number] [place] [id number] Sep, [facility] [id number] [place] [id number] Sep, [facility] [id number] [place] [id number] Sep, [facility] [id number] [place] [id number] 30 Aug, 2011 [facility] [id number] [place] [id number] 15 Aug, 2011 [facility] [id number] [place] [id number] Aug, [facility] [id number] [place] [id number] Jul, [facility] [id number] [place] [id number] Jun, [facility] [id number] [place] [id number] Jun, [facility] [id number] [place] [id number] May, [facility] [id number] [place] [id number] May, [facility] [id number] [place] [id number] May, [facility] [id number] [place] [id number] May, [facility] [id number] [place] [id number] Apr, [facility] [id number] [place] [id number] Apr, [facility] [id number] [place] [id number] Apr, [facility] [id number] [place] [id number] Apr, [facility] [id number] [place] [id number] Apr, [facility] [id number] [place] [address] Mar, [facility] [id number] [place] [id number] Mar, [facility] [id number] [place] [address] Jan, [facility] [id number] [place] [address] May, [facility] [id number] [place] [address] Apr, [facility] [id number] [place] [address] Mar, [facility] [id number] [place] [address] Jun, [facility] [id number] [place] [id number] Apr, [facility] [id number] [place] [address] Apr, IMMUNIZATIONS No Known Immunizations SOCIAL HISTORY Never Assessed REASON FOR VISIT PLAN OF CARE VITAL SIGNS MEDICATIONS Unknown Medications RESULTS No Results PROCEDURES Procedure Date Ordered Result Body Site PSYTX PT&/FAMILY 45 MINUTES Aug 14, 2013 INSTRUCTIONS MEDICATIONS ADMINISTERED No Known Medications MEDICAL (GENERAL) HISTORY Type Description Date Medical History seizures Surgical History No Surgical history information
--- OUTSIDE RECORDS SUMMARY | 2019-09-07 02:30 | XMS REPORT ---
Author Author Reymundo GONZALEZ [facility] Address [address] [place] [address] Care Team Providers Care Tobacco Grader Name Role Phone IWONA GONZALEZ Unavailable PROBLEMS Type Condition ICD9-CM Code [id number] Code Onset Dates Condition S tatus SNOMED Code Problem Alcohol abuse F10.10 Active 653848 05 Problem Relationship dysfunction Z63.9 Activ e [id number] Problem Impulse control disorder F63.9 Activ e 59108054 Problem Depressive disorder F32.9 Active 88391304 Problem Mild intellectual disabilities F70 Active 90703542 Problem Seasonal allergic rhinitis due to pollen J30.1 Active 09398992 ALLERGIES No Information ENCOUNTERS Encounter Location Date Diagnosis [place] [address] [address] Aug, [place] [address] [address] Jul, Depressive disorder F32.9 [place] [address] [address] Jul, [place] [address] [address] May, [place] [address] [address] Apr, [place] [address] [address] Apr, Depressive disorder F32.9 ; Impulse cont rol disorder F63.9 and Mild intellectual disabilities F70 [facility] [address] [address] Apr, [place] [address] [address] Apr, [facility] [address] [place] [id number] [place] [address] Apr, [facility] [address] [address] Apr, Impulse control disorder F63.9 ; Depress douglas disorder F32.9 and Mild intellectual disabilities F70 [address] [place] [address] Mar, [facility] [address] [address] Mar, [facility] [address] [address] Mar, Encounter for immunization Z23 [facility] [address] [address] Dec, [facility] [address] [address] Dec, Seasonal allergic rhinitis due to pollen J30.1 [facility] [id number] [place] [address] October, Depressive disorder F32.9 ; Impulse cont rol disorder F63.9 and Mild intellectual disabilities F70 [facility] [address] [place] [id number] [place] [address] Jun, Impulse control disorder F63.9 ; Mild in tellectual disabilities F70 ; Relationship dysfunction Z63.9 and Depressive disorder F32.9 [facility] [id number] [place] [address] Jun, [facility] [address] [address] May, [facility] [address] [address] May, [facility] [address] [address] May, Encounter for immunization Z23 [facility] [address] [place] [address] Apr, [facility] [address] [address] Apr, [facility] [address] [address] Mar, [facility] [address] [address] Mar, [facility] [address] [address] Feb, Annual physical exam Z00.00 [place] [address] [address] 25 Feb, 2018 Annual physical exam Z00.00 ; Mild intel lectual disabilities F70 and Encounter for immunization Z23 [facility] [address] [address] 11 Feb, 2018 [facility] [address] [address] Jan, [facility] [address] [address] 16 Jan, 2018 Impulse control disorder F63.9 ; Mild in tellectual disabilities F70 and Depressive disorder F32.9 [facility] [address] [address] Nov, [facility] [address] [address] Nov, [facility] [address] [address] Nov, [facility] [address] [address] Nov, [facility] [address] [address] Nov, [facility] [address] [address] 05 Nov, 2017 Impulse control disorder F63.9 ; Depress douglas disorder F32.9 and Mild intellectual disabilities F70 [facility] [address] [address] October, [facility] [address] [address] October, Impulse control disorder F63.9 ; Depress douglas disorder F32.9 and Mild intellectual disabilities F70 [facility] [address] [place] [id number] Sep, [facility] [address] [address] Sep, Impulse control disorder F63.9 ; Depress douglas disorder F32.9 and Mild intellectual disabilities F70 [facility] [address] [address] Sep, Impulse control disorder F63.9 ; Depress douglas disorder F32.9 and Mild intellectual disabilities F70 [facility] [address] [address] Aug, [facility] [address] [address] Aug, Impulse control disorder F63.9 ; Depress douglas disorder F32.9 and Mild intellectual disabilities F70 [facility] [address] [id number] Aug, Dental examination Z01.20 [facility] [address] [address] Aug, [facility] [address] [address] Aug, Impulse control disorder F63.9 ; Depress douglas disorder F32.9 and Mild intellectual disabilities F70 [facility] [address] [address] Jul, Impulse control disorder F63.9 ; Depress douglas disorder F32.9 and Mild intellectual disabilities F70 [facility] [address] [id number] 12 Jul, 2017 Dental examination Z01.20 [facility] [address] [address] Jul, [facility] [address] [address] Jun, Impulse control disorder F63.9 ; Depress douglas disorder F32.9 and Mild intellectual disabilities F70 [facility] [address] [address] 08 Jun, 2017 Impulse control disorder F63.9 ; Depress douglas disorder F32.9 and Mild intellectual disabilities F70 [facility] [address] [address] Jun, [facility] [address] [address] 08 May, 2017 [facility] [address] [address] May, Impulse control disorder F63.9 ; Depress douglas disorder F32.9 and Mild intellectual disabilities F70 [facility] [address] [address] Apr, Impulse control disorder F63.9 ; Depress douglas disorder F32.9 and Mild intellectual disabilities F70 [facility] [address] [address] Apr, Seizures R56.9 [place] [address] [address] Apr, [facility] [address] [address] Apr, Seizures R56.9 ; Tobacco abuse Z72.0 ; A lcohol abuse F10.10 and Encounter for immunization Z23 [facility] [address] [address] 14 Apr, 2017 Impulse control disorder F63.9 ; Depress douglas disorder F32.9 and Mild intellectual disabilities F70 [facility] [address] [address] Mar, Impulse control disorder F63.9 ; Depress douglas disorder F32.9 and Mild intellectual disabilities F70 [facility] [address] [address] Mar, [facility] [address] [address] Mar, Impulse control disorder F63.9 ; Depress douglas disorder F32.9 and Mild intellectual disabilities F70 [facility] [address] [address] Mar, [facility] [address] [address] Feb, Impulse control disorder F63.9 ; Depress douglas disorder F32.9 and Mild intellectual disabilities F70 [facility] [address] [address] Feb, [facility] [address] [address] Feb, Impulse control disorder F63.9 ; Depress douglas disorder F32.9 and Mild intellectual disabilities F70 [facility] [address] [address] Jan, Annual physical exam Z00.00 ; Right hand pain M79.641 ; Impulse control disorder F63.9 ; Mild intellectual disabilities F70 and Depressive disorder F32.9 [facility] [address] [address] Jan, Impulse control disorder F63.9 ; Depress douglas disorder F32.9 and Mild intellectual disabilities F70 [facility] [address] [address] Jan, [facility] [address] [address] Jan, Impulse control disorder F63.9 ; Depress douglas disorder F32.9 and Mild intellectual disabilities F70 [facility] [address] [place] [address] Jan, Impulse control disorder F63.9 ; Depress douglas disorder F32.9 and Mild intellectual disabilities F70 [facility] [address] [place] [id number] [place] [address] 14 Dec, 2016 [facility] [address] [address] Dec, Impulse control disorder F63.9 ; Depress douglas disorder F32.9 and Mild intellectual disabilities F70 [facility] [address] [address] Nov, Impulse control disorder F63.9 ; Depress douglas disorder F32.9 and Mild intellectual disabilities F70 [facility] [address] [address] Nov, [facility] [address] [address] Nov, [facility] [address] [address] Nov, [facility] [address] [address] October, Impulse control disorder F63.9 ; Depress douglas disorder F32.9 and Mild intellectual disabilities F70 [facility] [address] [address] October, [facility] [address] [address] October, Impulse control disorder F63.9 ; Depress douglas disorder F32.9 and Mild intellectual disabilities F70 [facility] [address] [address] Sep, [facility] [address] [address] Sep, Impulse control disorder F63.9 ; Depress douglas disorder F32.9 and Mild intellectual disabilities F70 [facility] [address] [address] Sep, Seasonal allergic rhinitis due to pollen J30.1 [facility] [address] [address] Sep, [facility] [address] [address] Sep, [facility] [address] [address] Sep, Impulse control disorder F63.9 ; Depress douglas disorder F32.9 and Mild intellectual disabilities F70 [facility] [address] [address] Aug, Impulse control disorder F63.9 ; Depress douglas disorder F32.9 and Mild intellectual disabilities F70 [facility] [address] [address] Aug, [facility] [address] [address] Aug, [facility] [address] [address] Jul, [facility] [address] [address] Jul, Impulse control disorder F63.9 ; Depress douglas disorder F32.9 and Mild intellectual disabilities F70 [facility] [address] [facility] [place] [id number] 10 Jul, 2016 Dental examination Z01.20 [facility] [address] [address] Jul, Impulse control disorder F63.9 ; Depress douglas disorder F32.9 and Mild intellectual disabilities F70 [facility] [address] [address] Jul, [facility] [address] [address] Jun, [facility] [address] [address] Jun, Impulse control disorder F63.9 ; Depress douglas disorder F32.9 and Mild intellectual disabilities F70 [facility] [address] [address] Jun, [facility] [address] [address] Jun, [facility] [address] [address] Jun, Impulse control disorder F63.9 ; Depress douglas disorder F32.9 and Mild intellectual disabilities F70 [facility] [address] [address] May, Impulse control disorder F63.9 ; Depress douglas disorder F32.9 and Mild intellectual disabilities F70 [facility] [address] [address] May, Annual physical exam Z00.00 ; Other fati sarah R53.83 ; Seizures R56.9 ; Mild intellectual disabilities F70 and Impulse control disorder F63.9 [facility] [address] [address] May, [facility] [address] [address] May, Impulse control disorder F63.9 ; Depress douglas disorder F32.9 and Mild intellectual disabilities F70 [facility] [address] [place] [id number] [place] [id number] 30 Apr, 2016 Encounter for dental examination Z01.20 [facility] [address] [address] Apr, Impulse control disorder F63.9 ; Depress douglas disorder F32.9 and Mild intellectual disabilities F70 [facility] [address] [address] Apr, [facility] [address] [address] Mar, Impulse control disorder F63.9 ; Depress douglas disorder F32.9 and Mild intellectual disabilities F70 [facility] [address] [address] Mar, Impulse control disorder F63.9 ; Depress douglas disorder F32.9 and Mild intellectual disabilities F70 [facility] [id number] [place] [address] Mar, [facility] [address] [address] Mar, [facility] [address] [address] Feb, Impulse control disorder F63.9 ; Depress douglas disorder F32.9 and Mild intellectual disabilities F70 [facility] [address] [address] Feb, Impulse control disorder F63.9 ; Depress douglas disorder F32.9 and Mild intellectual disabilities F70 [facility] [address] [address] Feb, [facility] [address] [address] Jan, Annual physical exam Z00.00 ; Impulse co ntrol disorder F63.9 ; Mild intellectual disabilities F70 ; Depressive disorder F32.9 and Seizures R56.9 [facility] [address] [address] Jan, Impulse control disorder F63.9 ; Depress douglas disorder F32.9 and Mild intellectual disabilities F70 [facility] [address] [address] Jan, [facility] [address] [address] Jan, Impulse control disorder F63.9 ; Depress douglas disorder F32.9 and Mild intellectual disabilities F70 [facility] [address] [address] Jan, [facility] [address] [address] Jan, [facility] [address] [address] Dec, Impulse control disorder F63.9 ; Depress douglas disorder F32.9 and Mild intellectual disabilities F70 [facility] [address] [address] Dec, Impulse control disorder F63.9 ; Depress douglas disorder F32.9 and Mild intellectual disabilities F70 [facility] [address] [address] Dec, [facility] [address] [address] Dec, Depressive disorder F32.9 ; Impulse cont rol disorder F63.9 and Mild intellectual disabilities F70 [facility] [address] [address] Nov, [facility] [address] [address] Nov, Depressive disorder F32.9 ; Impulse cont rol disorder F63.9 and Mild intellectual disabilities F70 [facility] [address] [address] Nov, [facility] [address] [address] October, Depressive disorder F32.9 ; Impulse cont rol disorder F63.9 and Mild intellectual disabilities F70 [facility] [address] [address] October, [facility] [address] [address] October, [facility] [address] [address] October, Depressive disorder F32.9 ; Impulse cont rol disorder F63.9 and Mild intellectual disabilities F70 [facility] [address] [address] October, [facility] [address] [address] Sep, [facility] [address] [address] Sep, Depressive disorder F32.9 ; Impulse cont rol disorder F63.9 and Mild intellectual disabilities F70 [facility] [address] [address] Sep, Depressive disorder F32.9 ; Impulse cont rol disorder F63.9 and Mild intellectual disabilities F70 [facility] [address] [address] Sep, [facility] [address] [address] Aug, [facility] [address] [address] Aug, Depressive disorder F32.9 ; Impulse cont rol disorder F63.9 and Mild intellectual disabilities F70 [facility] [address] [address] Aug, Depressive disorder F32.9 ; Impulse cont rol disorder F63.9 and Mild intellectual disabilities F70 [facility] [id number] [place] [id number] Jul, Dental examination Z01.20 [facility] [address] [address] Jul, [facility] [address] [address] Jul, Depressive disorder F32.9 ; Impulse cont rol disorder F63.9 and Mild intellectual disabilities F70 [facility] [address] [address] 05 Jul, 2015 Depressive disorder F32.9 ; Impulse cont rol disorder F63.9 and Mild intellectual disabilities F70 [facility] [address] [address] 02 Jul, 2015 Depression screening Z13.89 ; 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, 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 and Screening for STD sexually transmitted disease Z11.3 [facility] [address] [place] [address] Jun, [facility] [address] [address] Jun, Depressive disorder F32.9 ; Impulse cont rol disorder F63.9 and Mild intellectual disabilities F70 [facility] [address] [address] Jun, Depressive disorder, not elsewhere class ified F32.9 ; Mild mental retardation F70 and Impulse control disorder F63.9 [place] [address] [address] Jun, Depressive disorder, not elsewhere class ified F32.9 ; Impulse control disorder F63.9 and Mild intellectual disabilities F70 [facility] [address] [address] Jun, [facility] [id number] [place] [id number] Jun, Dental examination Z01.20 [facility] [address] [address] May, Depressive disorder, not elsewhere class ified F32.9 ; Impulse control disorder F63.9 and Mild intellectual disabilities F70 [facility] [address] [address] May, [facility] [address] [address] May, [facility] [address] [address] May, Depressive disorder, not elsewhere class ified F32.9 ; Impulse control disorder F63.9 and Mild intellectual disabilities F70 [facility] [address] [address] May, Depressive disorder, not elsewhere class ified F32.9 ; Impulse control disorder F63.9 and Mild mental retardation F70 [facility] [address] [address] Apr, Depressive disorder, not elsewhere class ified F32.9 ; Impulse control disorder F63.9 and Mild intellectual disabilities F70 [facility] [address] [address] Apr, [facility] [address] [address] Mar, Depressive disorder, not elsewhere class ified F32.9 ; Impulse control disorder F63.9 and Mild intellectual disabilities F70 [facility] [address] [address] Mar, Depressive disorder, not elsewhere class ified F32.9 ; Impulse control disorder F63.9 and Mild intellectual disabilities F70 [facility] [address] [address] Mar, [facility] [address] [address] Mar, Encounter for immunization Z23 [facility] [address] [address] Mar, Depressive disorder, not elsewhere class ified F32.9 ; Impulse control disorder F63.9 and Mild intellectual disabilities F70 [facility] [address] [address] Feb, Depressive disorder, not elsewhere class ified 311 ; Impulse control disorder, unspecified 312.30 and Mild mental retardation 317 [facility] [address] [address] Feb, [facility] [address] [address] Feb, Depressive disorder, not elsewhere class ified 311 ; Impulse control disorder, unspecified 312.30 and Mild mental retardation 317 [facility] [address] [address] Jan, Depressive disorder, not elsewhere class ified 311 ; Impulse control disorder, unspecified 312.30 and Mild mental retardation 317 [place] [address] [address] Jan, Depressive disorder, not elsewhere class ified 311 ; Impulse control disorder, unspecified 312.30 and Mild mental retardation 317 [place] [address] [address] Jan, [place] [address] [address] Jan, Depressive disorder, not elsewhere class ified 311 ; Impulse control disorder, unspecified 312.30 and Mild mental retardation 317 [place] [address] [address] Dec, Depressive disorder, not elsewhere class ified 311 ; Impulse control disorder, unspecified 312.30 and Mild mental retardation 317 [place] [address] [address] Dec, [facility] [id number] [place] [id number] Dec, Dental examination V72.[address] [address] Dec, Heat rash 705.1 ; Seizures 780.39 and Hi gh risk medication use V58.69 [place] [address] [address] Dec, [place] [address] [address] Dec, Depressive disorder, not elsewhere class ified 311 ; Impulse control disorder, unspecified 312.30 and Mild mental retardation [address] [place] [address] [address] Nov, Depressive disorder, not elsewhere class ified 311 ; Impulse control disorder, unspecified 312.30 and Mild mental retardation [address] [place] [address] [address] Nov, [facility] [address] [id number] [place] [address] Nov, Nicotine addiction 305.1 [facility] [address] [id number] [place] [address] 11 Nov, 2014 [facility] [address] [id number] [place] [address] 11 Nov, 2014 High risk medication use V58.69 [facility] [address] [address] 10 Nov, 2014 High risk medication use V58.69 [facility] [address] [id number] [place] [address] 09 Nov, 2014 Depressive disorder, not elsewhere class ified 311 ; Impulse control disorder, unspecified 312.30 and Mild mental retardation 317 [facility] [address] [id number] [place] [address] Nov, Depressive disorder, not elsewhere class ified 311 ; 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 and Impulse control disorder, unspecified 312.30 [facility] [address] [id number] [place] [address] October, Depressive disorder, not elsewhere class ified 311 ; Impulse control disorder, unspecified 312.30 and Mild mental retardation 317 [facility] [address] [id number] [place] [address] October, [facility] [address] [id number] [place] [address] October, Depressive disorder, not elsewhere class ified 311 ; Impulse control disorder, unspecified 312.30 and Mild mental retardation 317 [facility] [address] [id number] [place] [address] October, [facility] [address] [id number] [place] [id number] October, Dental examination V72.2 [facility] [address] [id number] [place] [address] Sep, Depressive disorder, not elsewhere class ified 311 ; Impulse control disorder 312.30 and Mild mental retardation 317 [facility] [place] [facility] [address] [id number] [place] [address] 14 Sep, 2014 [facility] [place] [facility] [address] [id number] [place] [address] 13 Sep, 2014 [facility] [place] [facility] [address] [id number] [place] [address] 26 Aug, 2014 [facility] [place] [facility] [address] [id number] [place] [address] 26 Aug, 2014 [facility] [place] [facility] [address] [id number] [place] [address] Aug, [facility] [place] [facility] [address] [id number] [place] [address] 18 Aug, 2014 [facility] [place] [facility] [address] [id number] [place] [address] Aug, [facility] [place] [facility] [address] [id number] [place] [address] Aug, [facility] [place] [facility] [address] [id number] [place] [address] Aug, [facility] [place] [facility] [address] [id number] [place] [address] Aug, [facility] [place] [facility] [address] [id number] [place] [address] Jul, 2014 [facility] [place] [facility] [address] [id number] [place] [address] Jul, 2014 [facility] [place] [facility] [address] [id number] [place] [address] Jul, 2014 [facility] [place] [facility] [address] [id number] [place] [address] Jul, 2014 [facility] [place] [facility] [address] [id number] [place] [address] 16 Jul, 2014 [facility] [place] [facility] [address] [id number] [place] [address] 16 Jul, 2014 [facility] [place] [facility] [address] [id number] [place] [address] Jul, 2014 [facility] [place] [facility] [address] [facility] [id number] [place] [address] Jul, 2014 [facility] [place] [facility] [address] [id number] [place] [address] Jul, 2014 [facility] [place] [facility] [address] [id number] [place] [address] Jul, 2014 [facility] [place] [facility] [address] [id number] [place] [address] Jul, [facility] [place] [facility] [address] [id number] [place] [address] Jul, [facility] [place] [facility] [address] [id number] [place] [address] Jul, [facility] [place] [facility] [address] [id number] [place] [address] Jul, [facility] [place] [facility] [address] [id number] [place] [address] Jun, [facility] [place] [facility] [address] [id number] [place] [address] Jun, [facility] [place] [facility] [address] [id number] [place] [address] Jun, [facility] [place] [facility] [address] [id number] [place] [address] Jun, [facility] [place] [facility] [address] [id number] [place] [address] Jun, [facility] [place] [facility] [address] [id number] [place] [address] Jun, [facility] [place] [facility] [address] [id number] [place] [address] Jun, [facility] [place] [facility] [address] [id number] [place] [address] Jun, [facility] [place] [facility] [address] [id number] [place] [address] 15 Jun, 2014 [facility] [place] [facility] [address] [id number] [place] [address] 15 Jun, 2014 [facility] [place] [facility] [address] [id number] [place] [address] 15 Jun, 2014 [facility] [place] [facility] [address] [id number] [place] [address] 15 Jun, 2014 [facility] [place] [facility] [address] [id number] [place] [address] 08 Jun, 2014 [facility] [place] [facility] [address] [id number] [place] [address] 08 Jun, 2014 [facility] [place] [facility] [address] [id number] [place] [address] 08 Jun, 2014 [facility] [place] [facility] [address] [id number] [place] [address] 08 Jun, 2014 [facility] [place] [facility] [address] [id number] [place] [address] 08 Jun, 2014 [facility] [place] [facility] [address] [id number] [place] [address] 08 Jun, 2014 [facility] [place] [facility] [address] [id number] [place] [address] Jun, [facility] [place] [facility] [address] [id number] [place] [address] 08 Jun, 2014 [facility] [place] [facility] [address] [id number] [place] [address] May, [facility] [place] [facility] [address] [id number] [place] [address] May, [facility] [place] [facility] [address] [id number] [place] [address] May, [facility] [place] [facility] [address] [id number] [place] [address] May, [facility] [place] [facility] [address] [id number] [place] [address] May, [facility] [place] [facility] [address] [id number] [place] [address] Apr, [facility] [place] [facility] [address] [id number] [place] [address] Apr, [facility] [place] [facility] [address] [id number] [place] [address] Apr, [facility] [place] [facility] [address] [id number] [place] [address] Apr, [facility] [place] [facility] [address] [id number] [place] [address] Apr, [facility] [place] [facility] [address] [id number] [place] [address] Apr, [facility] [place] [facility] [address] [id number] [place] [address] Apr, [facility] [place] [facility] [address] [id number] [place] [address] Apr, [facility] [place] [facility] [address] [id number] [place] [address] Mar, [facility] [place] [facility] [address] [id number] [place] [address] Mar, [facility] [place] [facility] [address] [id number] [place] [address] Mar, [facility] [place] [facility] [address] [id number] [place] [address] Mar, [facility] [place] [facility] [address] [id number] [place] [address] Mar, [facility] [place] [facility] [address] [id number] [place] [address] Mar, [facility] [place] [facility] [address] [id number] [place] [address] Mar, [facility] [place] [facility] [address] [id number] [place] [address] Mar, [facility] [place] [facility] [address] [id number] [place] [address] Mar, [facility] [place] [facility] [address] [id number] [place] [address] 16 Mar, 2013 [facility] [place] [facility] [address] [id number] [place] [address] 16 Mar, 2013 [facility] [place] [facility] [address] [id number] [place] [address] 16 Mar, 2013 [facility] [place] [facility] [address] [id number] [place] [address] 15 Mar, 2013 [facility] [place] [facility] [address] [id number] [place] [address] 15 Mar, 2013 [facility] [place] [facility] [address] [id number] [place] [address] Mar, 2013 [facility] [place] [facility] [address] [id number] [place] [address] Mar, 2013 [facility] [place] [facility] [address] [id number] [place] [address] Mar, 2013 [facility] [place] [facility] [address] [id number] [place] [address] Mar, 2013 [facility] [place] [facility] [address] [id number] [place] [address] Mar, [facility] [place] [facility] [address] [id number] [place] [address] Mar, 2013 [facility] [place] [facility] [address] [id number] [place] [address] 24 Feb, 2013 [facility] [place] [facility] [address] [id number] [place] [address] 24 Sep, 2013 [facility] [place] [facility] [address] [id number] [place] [address] 19 Sep, 2013 [facility] [place] [facility] [address] [id number] [place] [address] 19 Sep, 2013 [facility] [place] [facility] [address] [id number] [place] [address] 11 Sep, 2013 [facility] [place] [facility] [address] [id number] [place] [address] Feb, [facility] [place] [facility] [address] [facility] [id number] [facility] [place] [facility] [place] [address] Feb, [facility] [place] [facility] [address] [facility] [id number] [facility] [place] [facility] [address] Feb, [facility] [place] [facility] [address] [facility] [id number] [facility] [place] [facility] [address] Jan, [facility] [place] [facility] [address] [facility] [id number] [place] [address] Jan, [facility] [place] [facility] [address] [facility] [id number] [facility] [place] [facility] [place] [address] Jan, [facility] [place] [facility] [address] [facility] [id number] [place] [address] Jan, [facility] [place] [facility] [address] [facility] [id number] [place] [address] Dec, [facility] [place] [facility] [address] [id number] [facility] [place] [facility] [place] [address] Dec, [facility] [place] [facility] [address] [facility] [id number] [place] [address] Dec, [facility] [place] [facility] [address] [facility] [id number] [facility] [place] [facility] [place] [address] Dec, [facility] [place] [facility] [address] [facility] [id number] [place] [address] Dec, [facility] [place] [facility] [address] [id number] [place] [address] Dec, [facility] [place] [facility] [address] [facility] [id number] [place] [address] Dec, [facility] [place] [facility] [address] [facility] [id number] [place] [address] Dec, [facility] [place] [facility] [address] [facility] [id number] [place] [address] Dec, [facility] [place] [facility] [address] [facility] [id number] [facility] [place] [facility] [place] [address] Dec, [facility] [place] [facility] [address] [facility] [id number] [place] [address] Nov, [facility] [place] [facility] [address] [id number] [place] [address] Nov, [facility] [place] [facility] [address] [facility] [id number] [place] [address] Nov, [facility] [place] [facility] [address] [id number] [place] [address] Nov, [facility] [place] [facility] [address] [facility] [id number] [place] [address] Nov, [facility] [place] [facility] [address] [facility] [id number] [place] [address] Nov, [facility] [place] [facility] [address] [id number] [place] [address] Nov, [facility] [place] [facility] [address] [id number] [place] [address] Nov, [facility] [place] [facility] [address] [id number] [place] [address] Nov, [facility] [place] [facility] [address] [id number] [place] [address] Nov, [facility] [place] [facility] [address] [id number] [place] [address] Nov, [facility] [place] [facility] [address] [id number] [place] [address] Nov, [facility] [place] [facility] [address] [id number] [place] [address] October, [facility] [place] [facility] [address] [id number] [place] [address] October, [facility] [place] [facility] [address] [id number] [place] [address] October, [facility] [place] [facility] [address] [id number] [place] [address] October, [facility] [place] [facility] [address] [id number] [place] [address] October, [facility] [place] [facility] [address] [id number] [place] [address] October, [facility] [place] [facility] [address] [id number] [place] [address] October, [facility] [place] [facility] [address] [id number] [place] [address] October, [facility] [place] [facility] [address] [id number] [place] [address] October, [facility] [place] [facility] [address] [id number] [place] [address] October, [facility] [place] [facility] [address] [id number] [place] [address] Sep, [facility] [place] [facility] [address] [id number] [place] [address] Sep, [facility] [place] [facility] [address] [id number] [place] [address] Sep, [facility] [place] [facility] [address] [id number] [place] [address] Sep, [facility] [place] [facility] [address] [id number] [place] [address] Sep, [facility] [place] [facility] [address] [id number] [place] [address] Sep, [facility] [place] [facility] [address] [id number] [place] [address] Sep, [facility] [place] [facility] [address] [id number] [place] [address] Sep, [facility] [place] [facility] [address] [id number] [place] [address] Aug, [facility] [place] [facility] [address] [id number] [place] [address] Aug, [facility] [place] [facility] [address] [id number] [place] [address] Aug, [facility] [place] [facility] [address] [id number] [place] [address] Aug, [facility] [place] [facility] [address] [id number] [place] [address] Aug, [facility] [place] [facility] [address] [id number] [place] [address] Aug, [facility] [place] [facility] [address] [id number] [place] [address] Aug, [facility] [place] [facility] [address] [id number] [place] [address] Aug, [facility] [place] [facility] [address] [id number] [place] [address] Jul, [facility] [place] [facility] [address] [id number] [place] [address] Jul, [facility] [place] [facility] [address] [id number] [place] [address] Jul, [facility] [place] [facility] [address] [id number] [place] [address] Jul, [facility] [place] [facility] [address] [id number] [place] [address] Jul, [facility] [place] [facility] [address] [id number] [place] [address] Jul, [facility] [place] [facility] [address] [id number] [place] [address] Jul, [facility] [place] [facility] [address] [id number] [place] [address] Jul, [facility] [place] [facility] [address] [id number] [place] [address] Jun, [facility] [place] [facility] [address] [id number] [place] [address] Jun, [facility] [place] [facility] [address] [id number] [place] [address] Jun, [facility] [place] [facility] [address] [id number] [place] [address] Jun, [facility] [place] [facility] [address] [id number] [place] [address] 16 Jun, 2013 [facility] [place] [facility] [address] [id number] [place] [address] Jun, [facility] [place] [facility] [address] [id number] [place] [address] Jun, [facility] [place] [facility] [address] [id number] [place] [address] Jun, [facility] [place] [facility] [address] [id number] [place] [address] May, [facility] [place] [facility] [address] [id number] [place] [address] May, [facility] [place] [facility] [address] [id number] [place] [address] May, [facility] [place] [facility] [address] [id number] [place] [address] May, [facility] [place] [facility] [address] [id number] [place] [address] May, [facility] [place] [facility] [address] [id number] [place] [address] May, [facility] [place] [facility] [address] [id number] [place] [address] Apr, [facility] [place] [facility] [address] [id number] [place] [address] Apr, [facility] [place] [facility] [address] [id number] [place] [address] Mar, [facility] [place] [facility] [address] [id number] [place] [address] Mar, [facility] [place] [facility] [address] [id number] [place] [address] Mar, [facility] [place] [facility] [address] [id number] [place] [address] Mar, [facility] [place] [facility] [address] [id number] [place] [address] Mar, [facility] [place] [facility] [address] [id number] [place] [address] Feb, [facility] [place] [facility] [address] [facility] [id number] [facility] [place] [facility] [place] [address] Jan, [facility] [place] [facility] [address] [id number] [place] [address] Jan, [facility] [place] [address] [id number] [place] [address] Jan, [facility] [address] [facility] [id number] [place] [address] Jan, [facility] [address] [id number] [place] [address] Jan, [facility] [address] [id number] [place] [address] Dec, [facility] [address] [id number] [place] [address] Dec, [facility] [address] [id number] [place] [address] Dec, [facility] [address] [id number] [place] [address] Dec, [facility] [address] [id number] [place] [address] Nov, [facility] [address] [id number] [place] [address] Nov, [facility] [address] [id number] [place] [address] Nov, [facility] [address] [id number] [place] [address] October, [facility] [address] [id number] [place] [address] October, [facility] [address] [id number] [place] [address] October, [facility] [address] [id number] [place] [address] Sep, [facility] [address] [id number] [place] [address] Sep, [facility] [address] [id number] [place] [address] Aug, [facility] [address] [id number] [place] [address] Aug, [facility] [address] [id number] [place] [address] Jul, [facility] [address] [id number] [place] [address] Jul, [facility] [address] [id number] [place] [address] Jul, [facility] [address] [id number] [place] [address] Jul, [facility] [address] [id number] [place] [address] Jul, [facility] [address] [id number] [place] [address] Jun, [facility] [address] [id number] [place] [address] May, [facility] [address] [id number] [place] [address] 31 May, 2012 [facility] [address] [id number] [place] [address] 14 May, 2012 [facility] [address] [id number] [place] [address] 14 May, 2012 [facility] [address] [id number] [place] [address] 13 May, 2012 [facility] [address] [id number] [place] [address] 13 May, 2012 [facility] [address] [id number] [place] [address] May, [facility] [address] [id number] [place] [address] May, [facility] [address] [id number] [place] [address] Apr, [facility] [address] [id number] [place] [address] Apr, [facility] [address] [id number] [place] [address] Apr, [facility] [address] [id number] [place] [address] Apr, [facility] [address] [id number] [place] [address] Mar, [facility] [address] [id number] [place] [address] Mar, [facility] [address] [id number] [place] [address] Mar, [facility] [address] [id number] [place] [address] Feb, [facility] [address] [id number] [place] [address] Feb, [facility] [address] [id number] [place] [address] Jan, [facility] [address] [id number] [place] [address] Jan, [facility] [address] [id number] [place] [address] Jan, [facility] [address] [id number] [place] [address] Dec, [facility] [address] [id number] [place] [address] Dec, [facility] [address] [id number] [place] [address] Dec, [facility] [address] [id number] [place] [address] Dec, [facility] [address] [id number] [place] [address] Nov, [facility] [facility] [address] [id number] [place] [address] Nov, [facility] [address] [id number] [place] [address] Nov, [facility] [address] [id number] [place] [address] October, [facility] [address] [id number] [place] [address] October, [facility] [address] [id number] [place] [address] October, [facility] [address] [id number] [place] [address] Sep, [facility] [address] [id number] [place] [address] Sep, [facility] [address] [id number] [place] [address] Sep, [facility] [address] [id number] [place] [address] 30 Aug, 2011 [facility] [address] [id number] [place] [address] 15 Aug, 2011 [facility] [address] [id number] [place] [address] Aug, [facility] [address] [id number] [place] [address] Jul, [facility] [address] [id number] [place] [address] Jun, [facility] [address] [id number] [place] [address] Jun, [facility] [address] [id number] [place] [address] May, [facility] [address] [id number] [place] [address] May, [facility] [address] [id number] [place] [address] May, [facility] [address] [id number] [place] [address] May, [facility] [id number] [place] [address] Apr, [facility] [id number] [place] [address] Apr, [facility] [address] [id number] [place] [address] Apr, [facility] [address] [id number] [place] [address] Apr, [facility] [id number] [place] [address] Apr, [facility] [id number] [place] [address] Mar, [facility] [address] [id number] [place] [address] Mar, [facility] [id number] [place] [address] Jan, [facility] [id number] [place] [address] May, [facility] [address] [id number] [place] [address] Apr, [facility] [address] [id number] [place] [address] Mar, [facility] [id number] [place] [address] Jun, [facility] [address] [id number] [place] [address] Apr, [facility] [id number] [place] [address] Apr, IMMUNIZATIONS No Known Immunizations SOCIAL HISTORY Never Assessed REASON FOR VISIT PLAN OF CARE VITAL SIGNS MEDICATIONS Unknown Medications RESULTS No Results PROCEDURES Procedure Date Ordered Result Body Site PSYTX PT&/FAMILY 45 MINUTES September 07, 2013 INSTRUCTIONS MEDICATIONS ADMINISTERED No Known Medications MEDICAL (GENERAL) HISTORY Type Description Date Medical History seizures Surgical History No Surgical history information
--- OUTSIDE RECORDS SUMMARY | 2019-09-07 02:30 | XMS REPORT ---
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 Activ e 776909972 Problem Impulse control disorder F63.9 Activ e 17101188 Problem Depressive disorder F32.9 Active 79897020 Problem Mild intellectual disabilities F70 Active 94637736 Problem Seasonal allergic rhinitis due to pollen J30.1 Active 94531210 ALLERGIES No Information ENCOUNTERS Encounter Location Date Diagnosis [place] [id number] [address] Aug, [place] [address] [address] Jul, Depressive disorder F32.9 [place] [address] [address] Jul, [place] [address] [address] May, [facility] [address] [address] Apr, [place] [address] [address] Apr, Depressive disorder F32.9 ; Impulse cont rol disorder F63.9 and Mild intellectual disabilities F70 [facility] [address] [address] Apr, [place] [address] [address] Apr, [facility] [address] [place] [id number] [place] [address] Apr, [facility] [address] [address] Apr, Impulse control disorder F63.9 ; Depress douglas disorder F32.9 and Mild intellectual disabilities F70 [address] [place] [address] Mar, [facility] [address] [address] Mar, [facility] [address] [address] Mar, Encounter for immunization Z23 [facility] [address] [place] [id number] [place] [address] Dec, [facility] [address] [address] Dec, Seasonal allergic rhinitis due to pollen J30.1 [facility] [address] [place] [id number] [place] [address] October, Depressive disorder F32.9 ; Impulse cont rol disorder F63.9 and Mild intellectual disabilities F70 [facility] [address] [id number] [place] [address] Jun, Impulse control disorder F63.9 ; Mild in tellectual disabilities F70 ; Relationship dysfunction Z63.9 and Depressive disorder F32.9 [facility] [address] [id number] [place] [address] Jun, [facility] [address] [address] May, [facility] [address] [address] May, [facility] [address] [place] [id number] [place] [address] May, Encounter for immunization Z23 [facility] [address] [place] [address] [place] [address] Apr, [facility] [address] [address] Apr, [facility] [address] [address] Mar, [facility] [address] [address] Mar, [facility] [address] [address] Feb, Annual physical exam Z00.00 [place] [address] [address] 25 Feb, 2018 Annual physical exam Z00.00 ; Mild intel lectual disabilities F70 and Encounter for immunization Z23 [facility] [address] [address] 11 Feb, 2018 [facility] [address] [address] Jan, [facility] [address] [address] Jan, Impulse control disorder F63.9 ; Mild in tellectual disabilities F70 and Depressive disorder F32.9 [facility] [address] [address] Nov, [facility] [address] [address] Nov, [facility] [address] [address] Nov, [facility] [address] [address] Nov, [facility] [address] [address] Nov, [facility] [address] [address] 05 Nov, 2017 Impulse control disorder F63.9 ; Depress douglas disorder F32.9 and Mild intellectual disabilities F70 [facility] [address] [address] October, [facility] [address] [address] October, Impulse control disorder F63.9 ; Depress douglas disorder F32.9 and Mild intellectual disabilities F70 [facility] [address] [address] Sep, [facility] [address] [address] Sep, Impulse control disorder F63.9 ; Depress douglas disorder F32.9 and Mild intellectual disabilities F70 [facility] [address] [address] Sep, Impulse control disorder F63.9 ; Depress duoglas disorder F32.9 and Mild intellectual disabilities F70 [facility] [address] [address] Aug, [facility] [address] [address] Aug, Impulse control disorder F63.9 ; Depress douglas disorder F32.9 and Mild intellectual disabilities F70 [facility] [address] [id number] Aug, Dental examination Z01.20 [facility] [address] [address] Aug, [facility] [address] [address] Aug, Impulse control disorder F63.9 ; Depress douglas disorder F32.9 and Mild intellectual disabilities F70 [facility] [address] [place] [id number] Jul, Impulse control disorder F63.9 ; Depress douglas disorder F32.9 and Mild intellectual disabilities F70 [facility] [address] [id number] Jul, 2017 Dental examination Z01.20 [facility] [address] [address] Jul, [facility] [address] [place] [id number] Jun, Impulse control disorder F63.9 ; Depress douglas disorder F32.9 and Mild intellectual disabilities F70 [facility] [address] [address] Jun, Impulse control disorder F63.9 ; Depress douglas disorder F32.9 and Mild intellectual disabilities F70 [place] [address] [address] Jun, [facility] [address] [address] 08 May, 2017 [place] [address] [address] May, Impulse control disorder F63.9 ; Depress douglas disorder F32.9 and Mild intellectual disabilities F70 [place] [address] [address] Apr, Impulse control disorder F63.9 ; Depress douglas disorder F32.9 and Mild intellectual disabilities F70 [place] [address] [address] Apr, Seizures R56.9 [place] [address] [address] Apr, [facility] [address] [address] Apr, Seizures R56.9 ; Tobacco abuse Z72.0 ; A lcohol abuse F10.10 and Encounter for immunization Z23 [facility] [address] [address] 14 Apr, 2017 Impulse control disorder F63.9 ; Depress douglas disorder F32.9 and Mild intellectual disabilities F70 [facility] [address] [address] Mar, Impulse control disorder F63.9 ; Depress douglas disorder F32.9 and Mild intellectual disabilities F70 [facility] [address] [address] Mar, [facility] [address] [address] Mar, Impulse control disorder F63.9 ; Depress douglas disorder F32.9 and Mild intellectual disabilities F70 [facility] [address] [address] Mar, [facility] [address] [address] Feb, Impulse control disorder F63.9 ; Depress douglas disorder F32.9 and Mild intellectual disabilities F70 [facility] [address] [address] Feb, [facility] [address] [address] Feb, Impulse control disorder F63.9 ; Depress douglas disorder F32.9 and Mild intellectual disabilities F70 [facility] [address] [address] Jan, Annual physical exam Z00.00 ; Right hand pain M79.641 ; Impulse control disorder F63.9 ; Mild intellectual disabilities F70 and Depressive disorder F32.9 [facility] [address] [address] Jan, Impulse control disorder F63.9 ; Depress douglas disorder F32.9 and Mild intellectual disabilities F70 [facility] [address] [address] Jan, [facility] [address] [address] Jan, Impulse control disorder F63.9 ; Depress douglas disorder F32.9 and Mild intellectual disabilities F70 [facility] [address] [address] Jan, Impulse control disorder F63.9 ; Depress douglas disorder F32.9 and Mild intellectual disabilities F70 [facility] [address] [address] Dec, [facility] [address] [address] Dec, Impulse control disorder F63.9 ; Depress douglas disorder F32.9 and Mild intellectual disabilities F70 [facility] [address] [address] Nov, Impulse control disorder F63.9 ; Depress douglas disorder F32.9 and Mild intellectual disabilities F70 [facility] [address] [address] Nov, [facility] [address] [address] Nov, [facility] [address] [address] Nov, [facility] [address] [address] October, Impulse control disorder F63.9 ; Depress douglas disorder F32.9 and Mild intellectual disabilities F70 [facility] [address] [address] October, [facility] [address] [address] October, Impulse control disorder F63.9 ; Depress douglas disorder F32.9 and Mild intellectual disabilities F70 [facility] [address] [address] Sep, [facility] [address] [address] Sep, Impulse control disorder F63.9 ; Depress douglas disorder F32.9 and Mild intellectual disabilities F70 [facility] [address] [address] Sep, Seasonal allergic rhinitis due to pollen J30.1 [facility] [address] [address] Sep, [facility] [address] [address] Sep, [facility] [address] [address] Sep, Impulse control disorder F63.9 ; Depress douglas disorder F32.9 and Mild intellectual disabilities F70 [facility] [address] [address] Aug, Impulse control disorder F63.9 ; Depress douglas disorder F32.9 and Mild intellectual disabilities F70 [facility] [address] [address] Aug, [facility] [address] [address] Aug, [facility] [address] [address] Jul, [facility] [address] [address] Jul, Impulse control disorder F63.9 ; Depress douglas disorder F32.9 and Mild intellectual disabilities F70 [facility] [address] [facility] [place] [id number] 10 Jul, 2016 Dental examination Z01.20 [facility] [address] [address] Jul, Impulse control disorder F63.9 ; Depress douglas disorder F32.9 and Mild intellectual disabilities F70 [facility] [address] [address] Jul, [facility] [address] [address] Jun, [facility] [address] [address] Jun, Impulse control disorder F63.9 ; Depress douglas disorder F32.9 and Mild intellectual disabilities F70 [facility] [address] [address] Jun, [facility] [address] [address] Jun, [facility] [address] [address] Jun, Impulse control disorder F63.9 ; Depress douglas disorder F32.9 and Mild intellectual disabilities F70 [facility] [address] [address] May, Impulse control disorder F63.9 ; Depress douglas disorder F32.9 and Mild intellectual disabilities F70 [facility] [address] [address] May, Annual physical exam Z00.00 ; Other fati sarah R53.83 ; Seizures R56.9 ; Mild intellectual disabilities F70 and Impulse control disorder F63.9 [facility] [address] [address] May, [facility] [address] [address] May, Impulse control disorder F63.9 ; Depress douglas disorder F32.9 and Mild intellectual disabilities F70 [facility] [address] [facility] [place] [id number] 30 Apr, 2016 Encounter for dental examination Z01.20 [facility] [address] [address] Apr, Impulse control disorder F63.9 ; Depress douglas disorder F32.9 and Mild intellectual disabilities F70 [facility] [address] [address] Apr, [facility] [address] [address] Mar, Impulse control disorder F63.9 ; Depress douglas disorder F32.9 and Mild intellectual disabilities F70 [facility] [address] [address] Mar, Impulse control disorder F63.9 ; Depress douglas disorder F32.9 and Mild intellectual disabilities F70 [facility] [address] [place] [id number] [place] [address] Mar, [facility] [address] [address] Mar, [facility] [address] [address] Feb, Impulse control disorder F63.9 ; Depress douglas disorder F32.9 and Mild intellectual disabilities F70 [facility] [address] [address] Feb, Impulse control disorder F63.9 ; Depress douglas disorder F32.9 and Mild intellectual disabilities F70 [facility] [address] [address] Feb, [facility] [address] [address] Jan, Annual physical exam Z00.00 ; Impulse co ntrol disorder F63.9 ; Mild intellectual disabilities F70 ; Depressive disorder F32.9 and Seizures R56.9 [facility] [address] [address] Jan, Impulse control disorder F63.9 ; Depress douglas disorder F32.9 and Mild intellectual disabilities F70 [facility] [address] [address] Jan, [facility] [address] [address] Jan, Impulse control disorder F63.9 ; Depress douglas disorder F32.9 and Mild intellectual disabilities F70 [facility] [address] [address] Jan, [facility] [address] [address] Jan, [facility] [address] [address] Dec, Impulse control disorder F63.9 ; Depress douglas disorder F32.9 and Mild intellectual disabilities F70 [facility] [address] [address] Dec, Impulse control disorder F63.9 ; Depress douglas disorder F32.9 and Mild intellectual disabilities F70 [facility] [address] [address] Dec, [facility] [address] [address] Dec, Depressive disorder F32.9 ; Impulse cont rol disorder F63.9 and Mild intellectual disabilities F70 [facility] [address] [address] Nov, [facility] [address] [address] Nov, Depressive disorder F32.9 ; Impulse cont rol disorder F63.9 and Mild intellectual disabilities F70 [facility] [address] [address] Nov, [facility] [address] [address] October, Depressive disorder F32.9 ; Impulse cont rol disorder F63.9 and Mild intellectual disabilities F70 [facility] [address] [address] October, [facility] [address] [address] October, [facility] [address] [address] October, Depressive disorder F32.9 ; Impulse cont rol disorder F63.9 and Mild intellectual disabilities F70 [facility] [address] [address] October, [facility] [address] [address] Sep, [facility] [address] [address] Sep, Depressive disorder F32.9 ; Impulse cont rol disorder F63.9 and Mild intellectual disabilities F70 [facility] [address] [address] Sep, Depressive disorder F32.9 ; Impulse cont rol disorder F63.9 and Mild intellectual disabilities F70 [facility] [address] [address] Sep, [facility] [address] [address] Aug, [facility] [address] [address] Aug, Depressive disorder F32.9 ; Impulse cont rol disorder F63.9 and Mild intellectual disabilities F70 [facility] [address] [address] Aug, Depressive disorder F32.9 ; Impulse cont rol disorder F63.9 and Mild intellectual disabilities F70 [facility] [address] [facility] [place] [id number] Jul, Dental examination Z01.20 [facility] [address] [address] Jul, [facility] [address] [address] Jul, Depressive disorder F32.9 ; Impulse cont rol disorder F63.9 and Mild intellectual disabilities F70 [facility] [address] [address] 05 Jul, 2015 Depressive disorder F32.9 ; Impulse cont rol disorder F63.9 and Mild intellectual disabilities F70 [facility] [address] [address] Jul, Depression screening Z13.89 ; 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, 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 and Screening for STD sexually transmitted disease Z11.3 [facility] [address] [place] [id number] Jun, [facility] [address] [address] Jun, Depressive disorder F32.9 ; Impulse cont rol disorder F63.9 and Mild intellectual disabilities F70 [facility] [address] [address] Jun, Depressive disorder, not elsewhere class ified F32.9 ; Mild mental retardation F70 and Impulse control disorder F63.9 [place] [address] [address] Jun, Depressive disorder, not elsewhere class ified F32.9 ; Impulse control disorder F63.9 and Mild intellectual disabilities F70 [facility] [address] [address] Jun, [facility] [address] [place] [id number] [place] [id number] Jun, Dental examination Z01.20 [facility] [address] [address] May, Depressive disorder, not elsewhere class ified F32.9 ; Impulse control disorder F63.9 and Mild intellectual disabilities F70 [facility] [address] [address] May, [facility] [address] [address] May, [facility] [address] [address] May, Depressive disorder, not elsewhere class ified F32.9 ; Impulse control disorder F63.9 and Mild intellectual disabilities F70 [facility] [address] [address] May, Depressive disorder, not elsewhere class ified F32.9 ; Impulse control disorder F63.9 and Mild mental retardation F70 [facility] [address] [address] Apr, Depressive disorder, not elsewhere class ified F32.9 ; Impulse control disorder F63.9 and Mild intellectual disabilities F70 [facility] [address] [address] Apr, [facility] [address] [place] [id number] Mar, Depressive disorder, not elsewhere class ified F32.9 ; Impulse control disorder F63.9 and Mild intellectual disabilities F70 [facility] [address] [place] [id number] Mar, Depressive disorder, not elsewhere class ified F32.9 ; Impulse control disorder F63.9 and Mild intellectual disabilities F70 [facility] [address] [address] Mar, [facility] [address] [address] Mar, Encounter for immunization Z23 [place] [address] [address] Mar, Depressive disorder, not elsewhere class ified F32.9 ; Impulse control disorder F63.9 and Mild intellectual disabilities F70 [facility] [address] [address] Feb, Depressive disorder, not elsewhere class ified 311 ; Impulse control disorder, unspecified 312.30 and Mild mental retardation 317 [facility] [address] [address] Feb, [facility] [address] [address] Feb, Depressive disorder, not elsewhere class ified 311 ; Impulse control disorder, unspecified 312.30 and Mild mental retardation 317 [facility] [address] [address] Jan, Depressive disorder, not elsewhere class ified 311 ; Impulse control disorder, unspecified 312.30 and Mild mental retardation 317 [place] [address] [address] Jan, Depressive disorder, not elsewhere class ified 311 ; Impulse control disorder, unspecified 312.30 and Mild mental retardation 317 [facility] [address] [address] Jan, [place] [address] [address] Jan, Depressive disorder, not elsewhere class ified 311 ; Impulse control disorder, unspecified 312.30 and Mild mental retardation 317 [place] [address] [address] Dec, Depressive disorder, not elsewhere class ified 311 ; Impulse control disorder, unspecified 312.30 and Mild mental retardation 317 [place] [address] [address] Dec, [facility] [address] [facility] [place] [id number] Dec, Dental examination V72.[address] [address] Dec, Heat rash 705.1 ; Seizures 780.39 and Hi gh risk medication use V58.69 [place] [address] [address] Dec, [place] [address] [address] Dec, Depressive disorder, not elsewhere class ified 311 ; Impulse control disorder, unspecified 312.30 and Mild mental retardation 317 [place] [address] [address] Nov, Depressive disorder, not elsewhere class ified 311 ; Impulse control disorder, unspecified 312.30 and Mild mental retardation 317 [place] [address] [address] Nov, [facility] [id number] [place] [address] Nov, Nicotine addiction 305.1 [facility] [id number] [place] [address] 11 Nov, 2014 [facility] [id number] [place] [address] 11 Nov, 2014 High risk medication use V58.69 [facility] [address] [address] 10 Nov, 2014 High risk medication use V58.69 [facility] [address] [place] [id number] [place] [address] 09 Nov, 2014 Depressive disorder, not elsewhere class ified 311 ; Impulse control disorder, unspecified 312.30 and Mild mental retardation 317 [facility] [id number] [place] [address] Nov, Depressive disorder, not elsewhere class ified 311 ; 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 and Impulse control disorder, unspecified 312.30 [facility] [id number] [place] [address] October, Depressive disorder, not elsewhere class ified 311 ; Impulse control disorder, unspecified 312.30 and Mild mental retardation 317 [facility] [id number] [place] [address] October, [facility] [id number] [place] [address] October, Depressive disorder, not elsewhere class ified 311 ; Impulse control disorder, unspecified 312.30 and Mild mental retardation 317 [facility] [id number] [place] [address] October, [facility] [address] [facility] [id number] [place] [id number] October, Dental examination V72.2 [facility] [address] [id number] [place] [address] Sep, Depressive disorder, not elsewhere class ified 311 ; Impulse control disorder 312.30 and Mild mental retardation 317 [facility] [address] [id number] [place] [address] 14 Sep, 2014 [facility] [address] [id number] [place] [address] 13 Sep, 2014 [facility] [place] [facility] [address] [id number] [place] [address] 26 Aug, 2014 [facility] [address] [id number] [place] [address] Aug, [facility] [place] [facility] [address] [id number] [place] [address] Aug, [facility] [place] [facility] [address] [id number] [place] [address] 18 Aug, 2014 [facility] [place] [facility] [address] [id number] [place] [address] Aug, [facility] [place] [facility] [address] [id number] [place] [address] Aug, [facility] [place] [facility] [address] [id number] [place] [address] Aug, [facility] [place] [facility] [address] [id number] [place] [address] Aug, [facility] [place] [facility] [address] [id number] [place] [address] Jul, 2014 [facility] [place] [facility] [address] [id number] [place] [address] Jul, 2014 [facility] [place] [facility] [address] [id number] [place] [address] Jul, 2014 [facility] [place] [facility] [address] [id number] [place] [address] Jul, 2014 [facility] [place] [facility] [address] [id number] [place] [address] 16 Jul, 2014 [facility] [place] [facility] [address] [id number] [place] [address] 16 Jul, 2014 [facility] [place] [facility] [address] [id number] [place] [address] Jul, [facility] [place] [facility] [address] [facility] [id number] [place] [address] Jul, [facility] [place] [facility] [address] [id number] [place] [address] Jul, [facility] [place] [facility] [address] [id number] [place] [address] Jul, [facility] [place] [facility] [address] [id number] [place] [address] Jul, [facility] [place] [facility] [address] [id number] [place] [address] Jul, [facility] [place] [facility] [address] [id number] [place] [address] Jul, [facility] [place] [facility] [address] [id number] [place] [address] Jul, [facility] [place] [facility] [address] [id number] [place] [address] Jun, [facility] [place] [facility] [address] [id number] [place] [address] Jun, [facility] [place] [facility] [address] [id number] [place] [address] Jun, [facility] [place] [facility] [address] [id number] [place] [address] Jun, [facility] [place] [facility] [address] [id number] [place] [address] Jun, [facility] [place] [facility] [address] [id number] [place] [address] Jun, [facility] [place] [facility] [address] [id number] [place] [address] Jun, [facility] [place] [facility] [address] [id number] [place] [address] Jun, [facility] [place] [facility] [address] [id number] [place] [address] 15 Jun, 2014 [facility] [place] [facility] [address] [id number] [place] [address] 15 Jun, 2014 [facility] [place] [facility] [address] [id number] [place] [address] 15 Jun, 2014 [facility] [place] [facility] [address] [id number] [place] [address] 15 Jun, 2014 [facility] [place] [facility] [address] [id number] [place] [address] 08 Jun, 2014 [facility] [place] [facility] [address] [id number] [place] [address] 08 Jun, 2014 [facility] [place] [facility] [address] [id number] [place] [address] 08 Jun, 2014 [facility] [place] [facility] [address] [id number] [place] [address] 08 Jun, 2014 [facility] [place] [facility] [address] [id number] [place] [address] Jun, [facility] [place] [facility] [address] [id number] [place] [address] 08 Jun, 2014 [facility] [place] [facility] [address] [id number] [place] [address] Jun, [facility] [place] [facility] [address] [id number] [place] [address] 08 Jun, 2014 [facility] [place] [facility] [address] [id number] [place] [address] May, [facility] [place] [facility] [address] [id number] [place] [address] May, [facility] [place] [facility] [address] [id number] [place] [address] May, [facility] [place] [facility] [address] [id number] [place] [address] May, [facility] [place] [facility] [address] [id number] [place] [address] May, [facility] [place] [facility] [address] [id number] [place] [address] Apr, [facility] [place] [facility] [address] [id number] [place] [address] Apr, [facility] [place] [facility] [address] [id number] [place] [address] Apr, [facility] [place] [facility] [address] [id number] [place] [address] Apr, [facility] [place] [facility] [address] [id number] [place] [address] Apr, [facility] [place] [facility] [address] [id number] [place] [address] Apr, [facility] [place] [facility] [address] [id number] [place] [address] Apr, [facility] [place] [facility] [address] [id number] [place] [address] Apr, [facility] [place] [facility] [address] [id number] [place] [address] Mar, [facility] [place] [facility] [address] [id number] [place] [address] Mar, [facility] [place] [facility] [address] [id number] [place] [address] Mar, [facility] [place] [facility] [address] [id number] [place] [address] Mar, [facility] [place] [facility] [address] [id number] [place] [address] Mar, [facility] [place] [facility] [address] [id number] [place] [address] Mar, [facility] [place] [facility] [address] [id number] [place] [address] Mar, [facility] [place] [facility] [address] [id number] [place] [address] Mar, [facility] [place] [facility] [address] [id number] [place] [address] Mar, [facility] [place] [facility] [address] [facility] [id number] [place] [address] 16 Mar, 2013 [facility] [place] [facility] [address] [id number] [place] [address] Mar, 2013 [facility] [place] [facility] [address] [id number] [place] [address] Mar, 2013 [facility] [place] [facility] [address] [id number] [place] [address] Mar, [facility] [place] [facility] [address] [id number] [place] [address] Mar, [facility] [place] [facility] [address] [id number] [place] [address] Mar, [facility] [place] [facility] [address] [id number] [place] [address] Mar, 2013 [facility] [place] [facility] [address] [id number] [place] [address] Mar, [facility] [place] [facility] [address] [id number] [place] [address] Mar, [facility] [place] [facility] [address] [id number] [place] [address] Mar, [facility] [place] [facility] [address] [id number] [place] [address] Mar, [facility] [place] [facility] [address] [id number] [place] [address] 24 Feb, 2013 [facility] [place] [facility] [address] [id number] [place] [address] 24 Feb, 2013 [facility] [place] [facility] [address] [id number] [place] [address] 19 Sep, 2013 [facility] [place] [facility] [address] [id number] [place] [address] 19 Feb, 2013 [facility] [place] [facility] [address] [id number] [place] [address] 11 Feb, 2013 [facility] [place] [facility] [address] [id number] [place] [address] Feb, [facility] [place] [facility] [address] [id number] [facility] [address] Feb, [facility] [place] [facility] [address] [facility] [id number] [place] [address] Feb, [facility] [place] [facility] [address] [facility] [id number] [facility] [place] [address] Jan, [facility] [place] [facility] [address] [id number] [facility] [place] [address] Jan, [facility] [place] [facility] [address] [facility] [id number] [facility] [place] [address] Jan, [facility] [place] [facility] [address] [id number] [place] [address] Jan, [facility] [place] [facility] [address] [id number] [place] [address] Dec, [facility] [place] [facility] [address] [id number] [facility] [place] [address] Dec, [facility] [place] [facility] [address] [facility] [id number] [facility] [place] [address] Dec, [facility] [place] [facility] [address] [facility] [id number] [facility] [place] [address] Dec, [facility] [place] [facility] [address] [facility] [id number] [place] [address] Dec, [facility] [place] [facility] [address] [id number] [place] [address] Dec, [facility] [place] [facility] [address] [facility] [id number] [place] [address] Dec, [facility] [place] [facility] [address] [id number] [place] [address] Dec, [facility] [place] [facility] [address] [facility] [id number] [place] [address] Dec, [facility] [place] [facility] [address] [id number] [place] [address] Dec, [facility] [place] [facility] [address] [facility] [id number] [place] [address] Nov, [facility] [place] [facility] [address] [id number] [place] [address] Nov, [facility] [place] [facility] [address] [facility] [id number] [place] [address] Nov, [facility] [place] [facility] [address] [id number] [place] [address] Nov, [facility] [place] [facility] [address] [facility] [id number] [place] [address] Nov, [facility] [place] [facility] [address] [facility] [id number] [place] [address] Nov, [facility] [place] [facility] [address] [id number] [place] [address] Nov, [facility] [place] [facility] [address] [id number] [place] [address] Nov, [facility] [place] [facility] [address] [id number] [place] [address] Nov, [facility] [place] [facility] [address] [id number] [place] [address] Nov, [facility] [place] [facility] [address] [id number] [place] [address] Nov, [facility] [place] [facility] [address] [id number] [place] [address] Nov, [facility] [place] [facility] [address] [id number] [place] [address] October, [facility] [place] [facility] [address] [facility] [id number] [place] [address] October, [facility] [place] [facility] [address] [id number] [place] [address] October, [facility] [place] [facility] [address] [id number] [place] [address] October, [facility] [place] [facility] [address] [id number] [place] [address] October, [facility] [place] [facility] [address] [id number] [place] [address] October, [facility] [place] [facility] [address] [id number] [place] [address] October, [facility] [place] [facility] [address] [id number] [place] [address] October, [facility] [place] [facility] [address] [id number] [place] [address] October, [facility] [place] [facility] [address] [id number] [place] [address] October, [facility] [place] [facility] [address] [id number] [place] [address] Sep, [facility] [place] [facility] [address] [id number] [place] [address] Sep, [facility] [place] [facility] [address] [id number] [place] [address] Sep, [facility] [place] [facility] [address] [id number] [place] [address] Sep, [facility] [place] [facility] [address] [id number] [place] [address] Sep, [facility] [place] [facility] [address] [id number] [place] [address] Sep, [facility] [place] [facility] [address] [id number] [place] [address] Sep, [facility] [place] [facility] [address] [id number] [place] [address] Sep, [facility] [place] [facility] [address] [id number] [place] [address] Aug, [facility] [place] [facility] [address] [id number] [place] [address] Aug, [facility] [place] [facility] [address] [id number] [place] [address] Aug, [facility] [place] [facility] [address] [id number] [place] [address] Aug, [facility] [place] [facility] [address] [facility] [id number] [place] [address] Aug, [facility] [place] [facility] [address] [facility] [id number] [place] [address] Aug, [facility] [place] [facility] [address] [id number] [place] [address] Aug, [facility] [place] [facility] [address] [id number] [place] [address] Aug, [facility] [place] [facility] [address] [facility] [id number] [place] [address] Jul, [facility] [place] [facility] [address] [id number] [place] [address] Jul, [facility] [place] [facility] [address] [id number] [place] [address] Jul, [facility] [place] [facility] [address] [id number] [place] [address] Jul, [facility] [place] [facility] [address] [id number] [place] [address] Jul, [facility] [place] [facility] [address] [id number] [place] [address] Jul, [facility] [place] [facility] [address] [id number] [place] [address] Jul, [facility] [place] [facility] [address] [id number] [place] [address] Jul, [facility] [place] [facility] [address] [id number] [place] [address] Jun, [facility] [place] [facility] [address] [id number] [place] [address] Jun, [facility] [place] [facility] [address] [id number] [place] [address] Jun, [facility] [place] [facility] [address] [id number] [place] [address] Jun, [facility] [place] [facility] [address] [id number] [place] [address] Jun, [facility] [place] [facility] [address] [id number] [place] [address] Jun, [facility] [place] [facility] [address] [id number] [place] [address] Jun, [facility] [place] [facility] [address] [id number] [place] [address] Jun, [facility] [place] [facility] [address] [id number] [place] [address] May, [facility] [place] [facility] [address] [id number] [place] [address] May, [facility] [place] [facility] [address] [id number] [place] [address] May, [facility] [place] [facility] [address] [id number] [place] [address] May, [facility] [place] [facility] [address] [id number] [place] [address] May, [facility] [place] [facility] [address] [id number] [place] [address] May, [facility] [place] [facility] [address] [id number] [place] [address] Apr, [facility] [place] [facility] [address] [id number] [place] [address] Apr, [facility] [place] [facility] [address] [id number] [place] [address] Mar, [facility] [place] [facility] [address] [id number] [place] [address] Mar, [facility] [place] [facility] [address] [id number] [place] [address] Mar, [facility] [place] [facility] [address] [id number] [place] [address] Mar, [facility] [place] [facility] [address] [id number] [place] [address] Mar, [facility] [place] [facility] [address] [facility] [id number] [place] [address] Feb, [facility] [place] [facility] [address] [facility] [id number] [facility] [place] [address] Jan, [facility] [place] [facility] [address] [id number] [place] [address] Jan, [facility] [place] [facility] [address] [id number] [facility] [place] [address] Jan, [facility] [place] [facility] [address] [facility] [id number] [place] [address] Jan, [facility] [place] [facility] [address] [id number] [place] [address] Jan, [facility] [address] [id number] [place] [address] Dec, [facility] [address] [id number] [place] [address] Dec, [facility] [address] [id number] [place] [address] Dec, [facility] [address] [id number] [place] [address] Dec, [facility] [address] [id number] [place] [address] Nov, [facility] [address] [id number] [place] [address] Nov, [facility] [address] [id number] [place] [address] Nov, [facility] [address] [id number] [place] [address] October, [facility] [address] [id number] [place] [address] October, [facility] [address] [id number] [place] [address] October, [facility] [address] [id number] [facility] [place] [address] Sep, [facility] [address] [id number] [place] [address] Sep, [facility] [address] [id number] [place] [address] Aug, [facility] [address] [id number] [place] [address] Aug, [facility] [address] [id number] [place] [address] Jul, [facility] [address] [id number] [place] [address] Jul, [facility] [address] [id number] [place] [address] Jul, [facility] [address] [id number] [place] [address] Jul, [facility] [address] [id number] [place] [address] Jul, [facility] [address] [id number] [place] [address] Jun, [facility] [address] [id number] [place] [address] May, [facility] [address] [id number] [place] [address] 31 May, 2012 [facility] [address] [id number] [place] [address] 14 May, 2012 [facility] [address] [id number] [place] [address] 14 May, 2012 [facility] [address] [id number] [place] [address] May, [facility] [address] [id number] [place] [address] 13 May, 2012 [facility] [address] [id number] [place] [address] May, [facility] [address] [id number] [place] [address] May, [facility] [address] [id number] [place] [address] Apr, [facility] [address] [id number] [place] [address] Apr, [facility] [address] [id number] [place] [address] Apr, [facility] [address] [id number] [place] [address] Apr, [facility] [address] [id number] [place] [address] Mar, [facility] [address] [id number] [place] [address] Mar, [facility] [id number] [place] [address] Mar, [facility] [address] [id number] [place] [address] Feb, [facility] [address] [id number] [place] [address] Feb, [facility] [address] [id number] [place] [address] Jan, [facility] [address] [id number] [place] [address] Jan, [facility] [address] [id number] [place] [address] Jan, [facility] [address] [id number] [place] [address] Dec, [facility] [address] [id number] [place] [address] Dec, [facility] [address] [id number] [place] [address] Dec, [facility] [address] [id number] [place] [address] Dec, [facility] [address] [id number] [place] [address] Nov, [facility] [address] [id number] [place] [address] Nov, [facility] [address] [id number] [place] [address] Nov, [facility] [address] [id number] [place] [address] October, [facility] [address] [id number] [place] [address] October, [facility] [address] [id number] [place] [address] October, [facility] [address] [id number] [place] [address] Sep, [facility] [address] [id number] [place] [address] 14 Sep, 2011 [facility] [address] [id number] [place] [address] Sep, [facility] [address] [id number] [place] [address] 30 Aug, 2011 [facility] [address] [id number] [place] [address] 15 Aug, 2011 [facility] [address] [id number] [place] [address] Aug, [facility] [address] [id number] [place] [address] Jul, [facility] [address] [id number] [place] [address] Jun, [facility] [address] [id number] [place] [address] Jun, [facility] [address] [id number] [place] [address] May, [facility] [address] [id number] [place] [address] May, [facility] [address] [id number] [place] [address] May, [facility] [address] [id number] [place] [address] May, [facility] [address] [id number] [place] [address] Apr, [facility] [id number] [place] [address] Apr, [facility] [address] [id number] [place] [address] Apr, [facility] [address] [id number] [place] [address] Apr, [facility] [id number] [place] [address] Apr, [facility] [id number] [place] [address] Mar, [facility] [address] [id number] [place] [address] Mar, [facility] [id number] [place] [address] Jan, [facility] [address] [id number] [place] [address] May, [facility] [address] [id number] [place] [address] Apr, [facility] [address] [id number] [place] [address] Mar, [facility] [id number] [place] [address] Jun, [facility] [address] [id number] [place] [address] Apr, [facility] [id number] [place] [address] Apr, IMMUNIZATIONS No Known Immunizations SOCIAL HISTORY Never Assessed REASON FOR VISIT PLAN OF CARE VITAL SIGNS Height 76 in 2013-08-27 Weight 216 lbs 2013-08-27 Temperature 97.9 degrees Fahrenheit 2013-08-27 Heart Rate 84 bpm 2013-08-27 Blood pressure systolic 118 mmHg 2013-08-27 Blood pressure diastolic 70 mmHg 2013-08-27 MEDICATIONS Unknown Medications RESULTS No Results PROCEDURES No Known procedures INSTRUCTIONS MEDICATIONS ADMINISTERED No Known Medications MEDICAL (GENERAL) HISTORY Type Description Date Medical History seizures Surgical History No Surgical history information
--- OUTSIDE RECORDS SUMMARY | 2019-09-07 02:31 | XMS REPORT ---
Author Author Reymundo GONZALEZ [facility] Address [address] [place] [address] Care Team Providers Care Guest Service Aide Name Role Phone IWONA GONZALEZ Unavailable PROBLEMS Type Condition ICD9-CM Code UTN97-NN Code Onset Dates Condition S tatus SNOMED Code Problem Alcohol abuse F10.10 Active 865232 05 Problem Relationship dysfunction Z63.9 Activ e [id number] Problem Impulse control disorder F63.9 Activ e 42624871 Problem Depressive disorder F32.9 Active 48366069 Problem Mild intellectual disabilities F70 Active 52660296 Problem Seasonal allergic rhinitis due to pollen J30.1 Active 63609071 ALLERGIES No Information ENCOUNTERS Encounter Location Date Diagnosis [place] [address] [address] Aug, [place] [address] [address] Jul, [place] [address] [address] Jul, Depressive disorder F32.9 [place] [address] [address] Jul, [place] [address] [address] May, [place] [address] [address] Apr, [place] [address] [address] Apr, Depressive disorder F32.9 ; Impulse cont rol disorder F63.9 and Mild intellectual disabilities F70 [place] [address] [address] Apr, [facility] [address] [place] [id number] [place] [address] Apr, [facility] [address] [address] Apr, [facility] [address] [place] [id number] [place] [address] Apr, Impulse control disorder F63.9 ; Depress douglas disorder F32.9 and Mild intellectual disabilities F70 [address] [place] [address] Mar, [facility] [address] [address] Mar, [facility] [address] [address] Mar, Encounter for immunization Z23 [facility] [address] [address] Dec, [facility] [address] [place] [id number] [place] [address] Dec, Seasonal allergic rhinitis due to pollen J30.1 [facility] [address] [address] October, Depressive disorder F32.9 ; Impulse cont rol disorder F63.9 and Mild intellectual disabilities F70 [facility] [address] [place] [id number] [place] [address] Jun, Impulse control disorder F63.9 ; Mild in tellectual disabilities F70 ; Relationship dysfunction Z63.9 and Depressive disorder F32.9 [facility] [address] [place] [id number] [place] [address] Jun, [facility] [address] [address] May, [facility] [address] [address] May, [facility] [address] [address] May, Encounter for immunization Z23 [facility] [address] [place] [id number] [place] [address] Apr, [facility] [address] [place] [id number] [place] [address] Apr, [facility] [address] [place] [id number] [place] [address] Mar, [facility] [address] [place] [id number] [place] [address] Mar, [facility] [address] [place] [id number] [place] [address] 26 Feb, 2018 Annual physical exam Z00.00 [facility] [address] [place] [id number] [place] [address] 25 Feb, 2018 Annual physical exam Z00.00 ; Mild intel lectual disabilities F70 and Encounter for immunization Z23 [facility] [address] [place] [id number] [place] [address] Feb, [facility] [address] [place] [id number] [place] [address] Jan, [facility] [address] [place] [id number] [place] [address] Jan, Impulse control disorder F63.9 ; Mild in tellectual disabilities F70 and Depressive disorder F32.9 [facility] [address] [place] [id number] [place] [address] Nov, [facility] [address] [place] [id number] [place] [address] Nov, [facility] [address] [place] [id number] [place] [address] Nov, [facility] [address] [place] [id number] [place] [address] Nov, [facility] [address] [place] [id number] [place] [address] Nov, [facility] [address] [place] [id number] [place] [address] Nov, Impulse control disorder F63.9 ; Depress douglas disorder F32.9 and Mild intellectual disabilities F70 [facility] [address] [place] [id number] [place] [address] October, [facility] [address] [address] October, Impulse control disorder F63.9 ; Depress douglas disorder F32.9 and Mild intellectual disabilities F70 [facility] [address] [place] [id number] [place] [address] Sep, [facility] [address] [address] Sep, Impulse control disorder F63.9 ; Depress douglas disorder F32.9 and Mild intellectual disabilities F70 [facility] [address] [address] Sep, Impulse control disorder F63.9 ; Depress douglas disorder F32.9 and Mild intellectual disabilities F70 [facility] [address] [place] [id number] [place] [address] Aug, [facility] [address] [address] Aug, Impulse control disorder F63.9 ; Depress douglas disorder F32.9 and Mild intellectual disabilities F70 [facility] [address] [id number] [place] [id number] Aug, Dental examination Z01.20 [facility] [address] [place] [id number] [place] [address] Aug, [facility] [address] [address] Aug, Impulse control disorder F63.9 ; Depress douglas disorder F32.9 and Mild intellectual disabilities F70 [facility] [address] [address] Jul, Impulse control disorder F63.9 ; Depress douglas disorder F32.9 and Mild intellectual disabilities F70 [facility] [address] [facility] [place] [id number] 12 Jul, 2017 Dental examination Z01.20 [facility] [address] [address] 02 Jul, 2017 [facility] [address] [address] Jun, Impulse control disorder F63.9 ; Depress douglas disorder F32.9 and Mild intellectual disabilities F70 [facility] [address] [address] 08 Jun, 2017 Impulse control disorder F63.9 ; Depress douglas disorder F32.9 and Mild intellectual disabilities F70 [facility] [address] [address] 08 Jun, 2017 [facility] [address] [address] 08 May, 2017 [facility] [address] [address] 05 May, 2017 Impulse control disorder F63.9 ; Depress douglas disorder F32.9 and Mild intellectual disabilities F70 [facility] [address] [address] Apr, Impulse control disorder F63.9 ; Depress douglas disorder F32.9 and Mild intellectual disabilities F70 [facility] [address] [address] 30 Apr, 2017 Seizures R56.9 [facility] [address] [address] Apr, [facility] [address] [address] Apr, Seizures R56.9 ; Tobacco abuse Z72.0 ; A lcohol abuse F10.10 and Encounter for immunization Z23 [facility] [address] [address] 14 Apr, 2017 Impulse control disorder F63.9 ; Depress douglas disorder F32.9 and Mild intellectual disabilities F70 [facility] [address] [address] Mar, Impulse control disorder F63.9 ; Depress douglas disorder F32.9 and Mild intellectual disabilities F70 [facility] [address] [address] Mar, [facility] [address] [address] Mar, Impulse control disorder F63.9 ; Depress douglas disorder F32.9 and Mild intellectual disabilities F70 [facility] [address] [address] Mar, [facility] [address] [address] Feb, Impulse control disorder F63.9 ; Depress douglas disorder F32.9 and Mild intellectual disabilities F70 [facility] [address] [address] Feb, [facility] [address] [address] Feb, Impulse control disorder F63.9 ; Depress douglas disorder F32.9 and Mild intellectual disabilities F70 [facility] [address] [address] Jan, Annual physical exam Z00.00 ; Right hand pain M79.641 ; Impulse control disorder F63.9 ; Mild intellectual disabilities F70 and Depressive disorder F32.9 [facility] [address] [address] Jan, Impulse control disorder F63.9 ; Depress douglas disorder F32.9 and Mild intellectual disabilities F70 [facility] [address] [address] Jan, [facility] [address] [address] Jan, Impulse control disorder F63.9 ; Depress douglas disorder F32.9 and Mild intellectual disabilities F70 [facility] [address] [place] [id number] [place] [address] Jan, Impulse control disorder F63.9 ; Depress douglas disorder F32.9 and Mild intellectual disabilities F70 [facility] [address] [place] [id number] [place] [address] Dec, [facility] [address] [address] Dec, Impulse control disorder F63.9 ; Depress douglas disorder F32.9 and Mild intellectual disabilities F70 [facility] [address] [address] Nov, Impulse control disorder F63.9 ; Depress douglas disorder F32.9 and Mild intellectual disabilities F70 [facility] [address] [address] Nov, [facility] [address] [address] Nov, [facility] [address] [address] Nov, [facility] [address] [address] October, Impulse control disorder F63.9 ; Depress douglas disorder F32.9 and Mild intellectual disabilities F70 [facility] [address] [address] October, [facility] [address] [address] October, Impulse control disorder F63.9 ; Depress douglas disorder F32.9 and Mild intellectual disabilities F70 [facility] [address] [place] [id number] [place] [address] Sep, [facility] [address] [address] Sep, Impulse control disorder F63.9 ; Depress douglas disorder F32.9 and Mild intellectual disabilities F70 [facility] [address] [place] [id number] [place] [address] Sep, Seasonal allergic rhinitis due to pollen J30.1 [facility] [address] [address] Sep, [facility] [address] [address] Sep, [facility] [address] [address] Sep, Impulse control disorder F63.9 ; Depress douglas disorder F32.9 and Mild intellectual disabilities F70 [facility] [address] [address] Aug, Impulse control disorder F63.9 ; Depress douglas disorder F32.9 and Mild intellectual disabilities F70 [facility] [address] [address] Aug, [facility] [address] [address] Aug, [facility] [address] [address] Jul, [facility] [address] [address] Jul, Impulse control disorder F63.9 ; Depress douglas disorder F32.9 and Mild intellectual disabilities F70 [facility] [address] [facility] [place] [id number] 10 Jul, 2016 Dental examination Z01.20 [facility] [address] [address] Jul, Impulse control disorder F63.9 ; Depress douglas disorder F32.9 and Mild intellectual disabilities F70 [facility] [address] [address] Jul, [facility] [address] [address] Jun, [facility] [address] [address] Jun, Impulse control disorder F63.9 ; Depress douglas disorder F32.9 and Mild intellectual disabilities F70 [facility] [address] [address] Jun, [facility] [address] [address] Jun, [facility] [address] [address] Jun, Impulse control disorder F63.9 ; Depress douglas disorder F32.9 and Mild intellectual disabilities F70 [facility] [address] [address] May, Impulse control disorder F63.9 ; Depress douglas disorder F32.9 and Mild intellectual disabilities F70 [facility] [address] [address] May, Annual physical exam Z00.00 ; Other fati sarah R53.83 ; Seizures R56.9 ; Mild intellectual disabilities F70 and Impulse control disorder F63.9 [facility] [address] [address] May, [facility] [address] [address] May, Impulse control disorder F63.9 ; Depress douglas disorder F32.9 and Mild intellectual disabilities F70 [facility] [address] [facility] [place] [id number] Apr, Encounter for dental examination Z01.20 [facility] [address] [address] Apr, Impulse control disorder F63.9 ; Depress douglas disorder F32.9 and Mild intellectual disabilities F70 [facility] [address] [address] Apr, [facility] [address] [address] Mar, Impulse control disorder F63.9 ; Depress douglas disorder F32.9 and Mild intellectual disabilities F70 [facility] [address] [address] Mar, Impulse control disorder F63.9 ; Depress douglas disorder F32.9 and Mild intellectual disabilities F70 [facility] [address] [address] Mar, [facility] [address] [address] Mar, [facility] [address] [address] Feb, Impulse control disorder F63.9 ; Depress douglas disorder F32.9 and Mild intellectual disabilities F70 [facility] [address] [address] Feb, Impulse control disorder F63.9 ; Depress douglas disorder F32.9 and Mild intellectual disabilities F70 [facility] [address] [address] Feb, [facility] [address] [address] Jan, Annual physical exam Z00.00 ; Impulse co ntrol disorder F63.9 ; Mild intellectual disabilities F70 ; Depressive disorder F32.9 and Seizures R56.9 [facility] [address] [address] Jan, Impulse control disorder F63.9 ; Depress douglas disorder F32.9 and Mild intellectual disabilities F70 [facility] [address] [address] Jan, [facility] [address] [address] Jan, Impulse control disorder F63.9 ; Depress douglas disorder F32.9 and Mild intellectual disabilities F70 [facility] [address] [address] Jan, [facility] [address] [address] Jan, [facility] [address] [address] Dec, Impulse control disorder F63.9 ; Depress douglas disorder F32.9 and Mild intellectual disabilities F70 [facility] [address] [address] Dec, Impulse control disorder F63.9 ; Depress douglas disorder F32.9 and Mild intellectual disabilities F70 [facility] [address] [address] Dec, [facility] [address] [address] Dec, Depressive disorder F32.9 ; Impulse cont rol disorder F63.9 and Mild intellectual disabilities F70 [facility] [address] [address] Nov, [facility] [address] [address] Nov, Depressive disorder F32.9 ; Impulse cont rol disorder F63.9 and Mild intellectual disabilities F70 [facility] [address] [address] Nov, [facility] [address] [address] October, Depressive disorder F32.9 ; Impulse cont rol disorder F63.9 and Mild intellectual disabilities F70 [facility] [address] [address] October, [facility] [address] [address] October, [facility] [address] [address] October, Depressive disorder F32.9 ; Impulse cont rol disorder F63.9 and Mild intellectual disabilities F70 [facility] [address] [address] October, [facility] [address] [address] Sep, [facility] [address] [address] Sep, Depressive disorder F32.9 ; Impulse cont rol disorder F63.9 and Mild intellectual disabilities F70 [facility] [address] [address] Sep, Depressive disorder F32.9 ; Impulse cont rol disorder F63.9 and Mild intellectual disabilities F70 [facility] [address] [address] Sep, [facility] [address] [address] Aug, [facility] [address] [address] Aug, Depressive disorder F32.9 ; Impulse cont rol disorder F63.9 and Mild intellectual disabilities F70 [facility] [address] [address] Aug, Depressive disorder F32.9 ; Impulse cont rol disorder F63.9 and Mild intellectual disabilities F70 [facility] [address] [place] [id number] [place] [id number] Jul, Dental examination Z01.20 [facility] [address] [address] Jul, [facility] [address] [address] Jul, Depressive disorder F32.9 ; Impulse cont rol disorder F63.9 and Mild intellectual disabilities F70 [facility] [address] [address] 05 Jul, 2015 Depressive disorder F32.9 ; Impulse cont rol disorder F63.9 and Mild intellectual disabilities F70 [facility] [address] [place] [id number] [place] [address] 02 Jul, 2015 Depression screening Z13.89 ; 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, 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 and Screening for STD sexually transmitted disease Z11.3 [facility] [address] [place] [id number] [place] [address] Jun, [facility] [address] [address] Jun, Depressive disorder F32.9 ; Impulse cont rol disorder F63.9 and Mild intellectual disabilities F70 [facility] [address] [address] Jun, Depressive disorder, not elsewhere class ified F32.9 ; Mild mental retardation F70 and Impulse control disorder F63.9 [facility] [address] [place] [id number] [place] [address] Jun, Depressive disorder, not elsewhere class ified F32.9 ; Impulse control disorder F63.9 and Mild intellectual disabilities F70 [facility] [address] [place] [id number] [place] [address] Jun, [facility] [address] [facility] [place] [id number] Jun, Dental examination Z01.20 [facility] [address] [place] [id number] [place] [address] May, Depressive disorder, not elsewhere class ified F32.9 ; Impulse control disorder F63.9 and Mild intellectual disabilities F70 [facility] [address] [place] [id number] [place] [address] May, [facility] [address] [address] May, [facility] [address] [address] May, Depressive disorder, not elsewhere class ified F32.9 ; Impulse control disorder F63.9 and Mild intellectual disabilities F70 [facility] [address] [address] May, Depressive disorder, not elsewhere class ified F32.9 ; Impulse control disorder F63.9 and Mild mental retardation F70 [facility] [address] [address] Apr, Depressive disorder, not elsewhere class ified F32.9 ; Impulse control disorder F63.9 and Mild intellectual disabilities F70 [facility] [address] [address] Apr, [facility] [address] [address] Mar, Depressive disorder, not elsewhere class ified F32.9 ; Impulse control disorder F63.9 and Mild intellectual disabilities F70 [facility] [address] [address] Mar, Depressive disorder, not elsewhere class ified F32.9 ; Impulse control disorder F63.9 and Mild intellectual disabilities F70 [facility] [address] [address] Mar, [place] [address] [address] Mar, Encounter for immunization Z23 [facility] [address] [address] Mar, Depressive disorder, not elsewhere class ified F32.9 ; Impulse control disorder F63.9 and Mild intellectual disabilities F70 [facility] [address] [address] 17 Feb, 2015 Depressive disorder, not elsewhere class ified 311 ; Impulse control disorder, unspecified 312.30 and Mild mental retardation 317 [facility] [address] [address] 14 Feb, 2015 [facility] [address] [address] 03 Feb, 2015 Depressive disorder, not elsewhere class ified 311 ; Impulse control disorder, unspecified 312.30 and Mild mental retardation 317 [facility] [address] [address] Jan, Depressive disorder, not elsewhere class ified 311 ; Impulse control disorder, unspecified 312.30 and Mild mental retardation 317 [facility] [address] [address] Jan, Depressive disorder, not elsewhere class ified 311 ; Impulse control disorder, unspecified 312.30 and Mild mental retardation 317 [facility] [address] [address] Jan, [facility] [address] [address] Jan, Depressive disorder, not elsewhere class ified 311 ; Impulse control disorder, unspecified 312.30 and Mild mental retardation [address] [place] [address] [address] Dec, Depressive disorder, not elsewhere class ified 311 ; Impulse control disorder, unspecified 312.30 and Mild mental retardation 317 [facility] [address] [address] Dec, [facility] [address] [id number] Dec, Dental examination V72.2 [place] [address] [address] Dec, Heat rash 705.1 ; Seizures 780.39 and Hi gh risk medication use V58.69 [facility] [address] [address] Dec, [place] [address] [address] Dec, Depressive disorder, not elsewhere class ified 311 ; Impulse control disorder, unspecified 312.30 and Mild mental retardation 317 [facility] [address] [address] Nov, Depressive disorder, not elsewhere class ified 311 ; Impulse control disorder, unspecified 312.30 and Mild mental retardation 317 [facility] [id number] [place] [address] 16 Nov, 2014 [facility] [address] [address] Nov, Nicotine addiction 305.1 [facility] [id number] [place] [address] 11 Nov, 2014 [facility] [address] [address] Nov, High risk medication use V58.69 [facility] [address] [address] 10 Nov, 2014 High risk medication use V58.69 [facility] [address] [address] 09 Nov, 2014 Depressive disorder, not elsewhere class ified 311 ; Impulse control disorder, unspecified 312.30 and Mild mental retardation 317 [facility] [address] [address] Nov, Depressive disorder, not elsewhere class ified 311 ; 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 and Impulse control disorder, unspecified 312.30 [facility] [id number] [place] [address] October, Depressive disorder, not elsewhere class ified 311 ; Impulse control disorder, unspecified 312.30 and Mild mental retardation 317 [facility] [address] [address] October, [facility] [address] [address] October, Depressive disorder, not elsewhere class ified 311 ; Impulse control disorder, unspecified 312.30 and Mild mental retardation 317 [facility] [id number] [place] [address] October, [facility] [address] [id number] [place] [id number] October, Dental examination V72.2 [facility] [id number] [place] [address] 30 Sep, 2014 Depressive disorder, not elsewhere class ified 311 ; Impulse control disorder 312.30 and Mild mental retardation 317 [facility] [address] [id number] [place] [address] [address], [address] [facility] [address] [id number] [place] [address] [address], [address] [facility] [address] [place] [id number] [place] [address] Aug, [facility] [address] [id number] [place] [address] Aug, [facility] [id number] [place] [address] Aug, [facility] [address] [id number] [place] [address] Aug, [facility] [id number] [place] [address] 16 Aug, 2014 [facility] [address] [id number] [place] [address] Aug, [facility] [id number] [place] [address] Aug, [facility] [address] [id number] [place] [address] Aug, [facility] [id number] [place] [address] Jul, [facility] [address] [id number] [place] [address] Jul, 2014 [facility] [id number] [place] [address] Jul, [facility] [address] [id number] [place] [address] Jul, 2014 [facility] [id number] [place] [address] [address], [address] [facility] [id number] [place] [address] 16 Jul, 2014 [facility] [place] [facility] [address] [id number] [place] [address] Jul, 2014 [facility] [place] [facility] [address] [id number] [place] [address] Jul, 2014 [facility] [place] [facility] [address] [id number] [place] [address] Jul, 2014 [facility] [place] [facility] [address] [id number] [place] [address] Jul, 2014 [facility] [place] [facility] [address] [id number] [place] [address] Jul, 2014 [facility] [place] [facility] [address] [id number] [place] [address] Jul, 2014 [facility] [place] [facility] [address] [id number] [place] [address] Jul, 2014 [facility] [place] [facility] [address] [id number] [place] [address] Jul, [facility] [place] [facility] [address] [id number] [place] [address] Jun, [facility] [place] [facility] [address] [id number] [place] [address] Jun, [facility] [place] [facility] [address] [id number] [place] [address] Jun, [facility] [place] [facility] [address] [id number] [place] [address] Jun, [facility] [place] [facility] [address] [id number] [place] [address] Jun, [facility] [place] [facility] [address] [id number] [place] [address] Jun, [facility] [place] [facility] [address] [id number] [place] [address] Jun, [facility] [place] [facility] [address] [id number] [place] [address] Jun, [facility] [place] [facility] [address] [id number] [place] [address] Jun, [facility] [place] [facility] [address] [id number] [place] [address] Jun, [facility] [place] [facility] [address] [id number] [place] [address] Jun, [facility] [place] [facility] [address] [id number] [place] [address] Jun, [facility] [place] [facility] [address] [id number] [place] [address] Jun, [facility] [place] [facility] [address] [id number] [place] [address] Jun, [facility] [place] [facility] [address] [id number] [place] [address] Jun, [facility] [place] [facility] [address] [id number] [place] [address] Jun, [facility] [place] [facility] [address] [id number] [place] [address] Jun, [facility] [place] [facility] [address] [id number] [place] [address] Jun, [facility] [place] [facility] [address] [id number] [place] [address] Jun, [facility] [place] [facility] [address] [id number] [place] [address] Jun, [facility] [place] [facility] [address] [id number] [place] [address] May, [facility] [place] [facility] [address] [id number] [place] [address] May, [facility] [place] [facility] [address] [id number] [place] [address] May, [facility] [place] [facility] [address] [id number] [place] [address] May, [facility] [place] [facility] [address] [id number] [place] [address] May, [facility] [place] [facility] [address] [id number] [place] [address] Apr, [facility] [place] [facility] [address] [id number] [place] [address] Apr, [facility] [place] [facility] [address] [id number] [place] [address] Apr, [facility] [place] [facility] [address] [id number] [place] [address] Apr, [facility] [place] [facility] [address] [id number] [place] [address] Apr, [facility] [place] [facility] [address] [id number] [place] [address] Apr, [facility] [place] [facility] [address] [id number] [place] [address] Apr, [facility] [place] [facility] [address] [id number] [place] [address] Apr, [facility] [place] [facility] [address] [id number] [place] [address] Mar, [facility] [place] [facility] [address] [id number] [place] [address] Mar, [facility] [place] [facility] [address] [id number] [place] [address] Mar, [facility] [place] [facility] [address] [id number] [place] [address] Mar, [facility] [place] [facility] [address] [id number] [place] [address] Mar, [facility] [place] [facility] [id number] [place] [address] Mar, [facility] [place] [facility] [address] [id number] [place] [address] Mar, [facility] [place] [facility] [address] [id number] [place] [address] Mar, [facility] [place] [facility] [address] [facility] [id number] [place] [address] 16 Mar, 2013 [facility] [place] [facility] [address] [id number] [place] [address] 16 Mar, 2013 [facility] [place] [facility] [address] [id number] [place] [address] 16 Mar, 2013 [facility] [place] [facility] [address] [id number] [place] [address] 16 Mar, 2013 [facility] [place] [facility] [address] [id number] [place] [address] 15 Mar, 2013 [facility] [place] [facility] [address] [id number] [place] [address] 15 Mar, 2014 [facility] [place] [facility] [address] [id number] [place] [address] Mar, 2013 [facility] [place] [facility] [address] [id number] [place] [address] Mar, 2013 [facility] [place] [facility] [address] [id number] [place] [address] Mar, 2013 [facility] [place] [facility] [address] [id number] [place] [address] Mar, 2013 [facility] [place] [facility] [address] [id number] [place] [address] Mar, 2013 [facility] [place] [facility] [address] [id number] [place] [address] Mar, 2013 [facility] [place] [facility] [address] [id number] [place] [address] 24 Feb, 2013 [facility] [place] [facility] [address] [id number] [place] [address] 24 Sep, 2013 [facility] [place] [facility] [address] [id number] [place] [address] 19 Feb, 2013 [facility] [place] [facility] [address] [id number] [place] [address] 19 Sep, 2013 [facility] [place] [facility] [address] [id number] [place] [address] Feb, 2013 [facility] [place] [facility] [address] [id number] [place] [address] Feb, [facility] [place] [facility] [address] [facility] [id number] [place] [address] Feb, [facility] [place] [facility] [address] [facility] [id number] [place] [address] Feb, [facility] [place] [facility] [address] [id number] [place] [address] Jan, [facility] [place] [facility] [address] [facility] [id number] [place] [address] Jan, [facility] [place] [facility] [address] [facility] [id number] [place] [address] Jan, [facility] [place] [facility] [address] [id number] [place] [address] Jan, [facility] [place] [facility] [address] [id number] [place] [address] Dec, [facility] [place] [facility] [address] [facility] [id number] [place] [address] Dec, [facility] [place] [facility] [address] [facility] [id number] [place] [address] Dec, [facility] [place] [facility] [address] [facility] [id number] [place] [address] Dec, [facility] [place] [facility] [address] [id number] [place] [address] Dec, [facility] [place] [facility] [address] [facility] [id number] [place] [address] Dec, [facility] [place] [facility] [address] [id number] [place] [address] Dec, [facility] [place] [facility] [address] [facility] [id number] [place] [address] Dec, [facility] [place] [facility] [address] [facility] [id number] [place] [address] Dec, [facility] [place] [facility] [address] [id number] [place] [address] Dec, [facility] [place] [facility] [address] [id number] [place] [address] Nov, [facility] [place] [facility] [address] [facility] [id number] [place] [address] Nov, [facility] [place] [facility] [address] [id number] [place] [address] Nov, [facility] [place] [facility] [address] [facility] [id number] [place] [address] Nov, [facility] [place] [facility] [address] [facility] [id number] [place] [address] Nov, [facility] [place] [facility] [address] [id number] [place] [address] Nov, [facility] [place] [facility] [address] [id number] [place] [address] Nov, [facility] [place] [facility] [address] [id number] [place] [address] Nov, [facility] [place] [facility] [address] [id number] [place] [address] Nov, [facility] [place] [facility] [address] [id number] [place] [address] Nov, [facility] [place] [facility] [address] [id number] [place] [address] Nov, [facility] [place] [facility] [address] [id number] [place] [address] Nov, [facility] [place] [facility] [address] [facility] [id number] [place] [address] October, [facility] [place] [facility] [address] [id number] [place] [address] October, [facility] [place] [facility] [address] [id number] [place] [address] October, [facility] [place] [facility] [address] [id number] [place] [address] October, [facility] [place] [facility] [address] [id number] [place] [address] October, [facility] [place] [facility] [address] [id number] [place] [address] October, [facility] [place] [facility] [address] [id number] [place] [address] October, [facility] [place] [facility] [address] [id number] [place] [address] October, [facility] [place] [facility] [address] [id number] [place] [address] October, [facility] [place] [facility] [address] [id number] [place] [address] October, [facility] [place] [facility] [address] [id number] [place] [address] Sep, [facility] [place] [facility] [address] [id number] [place] [address] Sep, [facility] [place] [facility] [address] [id number] [place] [address] Sep, [facility] [place] [facility] [address] [id number] [place] [address] Sep, [facility] [place] [facility] [address] [id number] [place] [address] Sep, [facility] [place] [facility] [address] [id number] [place] [address] Sep, [facility] [place] [facility] [address] [id number] [place] [address] Sep, [facility] [place] [facility] [address] [id number] [place] [address] Sep, [facility] [place] [facility] [address] [id number] [place] [address] Aug, [facility] [place] [facility] [address] [id number] [place] [address] Aug, [facility] [place] [facility] [address] [id number] [place] [address] Aug, [facility] [place] [facility] [address] [id number] [place] [address] Aug, [facility] [place] [facility] [address] [id number] [place] [address] Aug, [facility] [place] [facility] [address] [id number] [place] [address] Aug, [facility] [place] [facility] [address] [id number] [place] [address] Aug, [facility] [place] [facility] [address] [facility] [id number] [place] [address] Aug, [facility] [place] [facility] [address] [id number] [place] [address] Jul, [facility] [place] [facility] [address] [id number] [place] [address] Jul, [facility] [place] [facility] [address] [id number] [place] [address] Jul, [facility] [place] [facility] [address] [id number] [place] [address] Jul, [facility] [place] [facility] [address] [id number] [place] [address] Jul, [facility] [place] [facility] [address] [id number] [place] [address] Jul, [facility] [place] [facility] [address] [id number] [place] [address] Jul, [facility] [place] [facility] [address] [id number] [place] [address] Jul, [facility] [place] [facility] [address] [id number] [place] [address] Jun, [facility] [place] [facility] [address] [id number] [place] [address] Jun, [facility] [place] [facility] [address] [id number] [place] [address] Jun, [facility] [place] [facility] [address] [id number] [place] [address] Jun, [facility] [place] [facility] [address] [id number] [place] [address] Jun, [facility] [place] [facility] [address] [id number] [place] [address] Jun, [facility] [place] [facility] [address] [id number] [place] [address] Jun, [facility] [place] [facility] [address] [id number] [place] [address] Jun, [facility] [place] [facility] [address] [id number] [place] [address] May, [facility] [place] [facility] [address] [id number] [place] [address] May, [facility] [place] [facility] [address] [id number] [place] [address] May, [facility] [place] [facility] [address] [id number] [place] [address] May, [facility] [place] [facility] [address] [id number] [place] [address] May, [facility] [place] [facility] [address] [id number] [place] [address] May, [facility] [place] [facility] [address] [id number] [place] [address] Apr, [facility] [place] [facility] [address] [id number] [place] [address] Apr, [facility] [place] [facility] [address] [id number] [place] [address] Mar, [facility] [place] [facility] [id number] [place] [address] Mar, [facility] [place] [facility] [address] [id number] [place] [address] Mar, [facility] [place] [facility] [address] [id number] [place] [address] Mar, [facility] [place] [facility] [address] [id number] [place] [address] Mar, [facility] [place] [facility] [address] [facility] [id number] [place] [address] Feb, [facility] [place] [facility] [address] [id number] [place] [address] Jan, [facility] [place] [facility] [address] [id number] [place] [address] Jan, [facility] [place] [facility] [address] [facility] [id number] [place] [address] Jan, [facility] [place] [facility] [address] [id number] [place] [address] Jan, [facility] [place] [facility] [address] [id number] [place] [address] Jan, [facility] [place] [facility] [address] [id number] [place] [address] Dec, [facility] [place] [facility] [address] [facility] [id number] [place] [address] Dec, [facility] [place] [facility] [address] [id number] [place] [address] Dec, [facility] [place] [facility] [address] [id number] [place] [address] Dec, [facility] [place] [facility] [address] [id number] [place] [address] Nov, [facility] [place] [facility] [address] [facility] [id number] [place] [address] Nov, [facility] [place] [facility] [address] [id number] [place] [address] Nov, [facility] [place] [facility] [address] [id number] [place] [address] October, [facility] [place] [facility] [address] [id number] [place] [address] October, [facility] [place] [facility] [address] [id number] [place] [address] October, [facility] [place] [facility] [address] [id number] [place] [address] Sep, [facility] [place] [facility] [address] [id number] [place] [address] Sep, [facility] [place] [facility] [address] [id number] [place] [address] Aug, [facility] [address] [id number] [place] [address] Aug, [facility] [address] [id number] [place] [address] Jul, [facility] [address] [id number] [place] [address] Jul, [facility] [address] [id number] [place] [address] Jul, [facility] [address] [id number] [place] [address] Jul, [facility] [address] [id number] [place] [address] Jul, [facility] [address] [id number] [place] [address] Jun, [facility] [address] [id number] [place] [address] May, [facility] [address] [id number] [place] [address] 31 May, 2012 [facility] [address] [id number] [place] [address] 14 May, 2012 [facility] [address] [id number] [place] [address] 14 May, 2012 [facility] [address] [id number] [place] [address] 13 May, 2012 [facility] [address] [id number] [place] [address] May, [facility] [address] [id number] [place] [address] May, [facility] [address] [id number] [place] [address] May, [facility] [address] [id number] [place] [address] Apr, [facility] [address] [id number] [place] [address] Apr, [facility] [address] [id number] [place] [address] Apr, [facility] [address] [id number] [place] [address] Apr, [facility] [address] [id number] [place] [address] Mar, [facility] [id number] [place] [address] Mar, [facility] [address] [id number] [place] [address] Mar, [facility] [address] [id number] [place] [address] Feb, [facility] [address] [id number] [place] [address] Feb, [facility] [address] [id number] [place] [address] Jan, [facility] [address] [id number] [place] [address] Jan, [facility] [address] [id number] [place] [address] Jan, [facility] [address] [id number] [place] [address] Dec, [facility] [address] [id number] [place] [address] Dec, [facility] [address] [id number] [place] [address] Dec, [facility] [address] [id number] [place] [address] Dec, [facility] [address] [id number] [place] [address] Nov, [facility] [address] [id number] [place] [address] Nov, [facility] [address] [id number] [place] [address] Nov, [facility] [address] [id number] [place] [address] October, [facility] [address] [id number] [place] [address] October, [facility] [address] [id number] [place] [address] October, [facility] [address] [id number] [place] [address] Sep, [facility] [address] [id number] [place] [address] Sep, [facility] [address] [id number] [place] [address] Sep, [facility] [address] [id number] [place] [address] Aug, [facility] [address] [id number] [place] [address] Aug, [facility] [address] [id number] [place] [address] Aug, [facility] [address] [id number] [place] [address] Jul, [facility] [address] [id number] [place] [address] Jun, [facility] [address] [id number] [place] [address] Jun, [facility] [address] [id number] [place] [address] May, [facility] [address] [id number] [place] [address] May, [facility] [address] [id number] [place] [address] May, [facility] [address] [id number] [place] [address] May, [facility] [address] [id number] [place] [address] Apr, [facility] [address] [id number] [place] [address] Apr, [facility] [address] [id number] [place] [address] Apr, [facility] [address] [id number] [place] [address] Apr, [facility] [address] [id number] [place] [address] Apr, [facility] [address] [id number] [place] [address] Mar, [facility] [address] [id number] [place] [address] Mar, [facility] [address] [id number] [place] [address] Jan, [facility] [address] [id number] [place] [address] May, [facility] [address] [id number] [place] [address] Apr, [facility] [address] [id number] [place] [address] Mar, [facility] [address] [id number] [place] [address] Jun, [facility] [address] [id number] [place] [address] Apr, [facility] [address] [id number] [place] [address] Apr, IMMUNIZATIONS No Known Immunizations SOCIAL HISTORY Never Assessed REASON FOR VISIT PLAN OF CARE VITAL SIGNS MEDICATIONS Unknown Medications RESULTS No Results PROCEDURES Procedure Date Ordered Result Body Site PSYTX PT&/FAMILY 45 MINUTES September 25, 2013 INSTRUCTIONS MEDICATIONS ADMINISTERED No Known Medications MEDICAL (GENERAL) HISTORY Type Description Date Medical History seizures Surgical History No Surgical history information
--- OUTSIDE RECORDS SUMMARY | 2019-09-07 02:31 | XMS REPORT ---
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 Activ e [id number] Problem Impulse control disorder F63.9 Activ e [id number] Problem Depressive disorder F32.9 Active 02796614 Problem Mild intellectual disabilities F70 Active 63104452 Problem Seasonal allergic rhinitis due to pollen J30.1 Active [id number] ALLERGIES No Information ENCOUNTERS Encounter Location Date Diagnosis [place] [address] [address] Aug, [place] [address] [address] Jul, Depressive disorder F32.9 [place] [address] [address] Jul, [place] [address] [address] May, [place] [address] [address] Apr, [facility] [address] [address] Apr, Depressive disorder F32.9 ; Impulse cont rol disorder F63.9 and Mild intellectual disabilities F70 [facility] [address] [address] Apr, [place] [address] [address] Apr, [facility] [address] [place] [address] [id number] [place] [address] Apr, [facility] [address] [address] Apr, Impulse control disorder F63.9 ; Depress douglas disorder F32.9 and Mild intellectual disabilities F70 [address] [place] [address] Mar, [facility] [address] [address] Mar, [facility] [address] [address] Mar, Encounter for immunization Z23 [facility] [address] [address] Dec, [facility] [address] [address] Dec, Seasonal allergic rhinitis due to pollen J30.1 [facility] [address] [place] [id number] [place] [address] October, Depressive disorder F32.9 ; Impulse cont rol disorder F63.9 and Mild intellectual disabilities F70 [facility] [address] [place] [id number] [place] [address] Jun, Impulse control disorder F63.9 ; Mild in tellectual disabilities F70 ; Relationship dysfunction Z63.9 and Depressive disorder F32.9 [facility] [id number] [place] [address] Jun, [facility] [address] [address] May, [facility] [address] [address] May, [facility] [address] [address] May, Encounter for immunization Z23 [facility] [address] [place] [address] Apr, [facility] [address] [address] Apr, [facility] [address] [address] Mar, [facility] [address] [address] Mar, [facility] [address] [address] Feb, Annual physical exam Z00.00 [place] [address] [address] 25 Feb, 2018 Annual physical exam Z00.00 ; Mild intel lectual disabilities F70 and Encounter for immunization Z23 [facility] [address] [address] 11 Feb, 2018 [facility] [address] [address] Jan, [facility] [address] [address] 16 Jan, 2018 Impulse control disorder F63.9 ; Mild in tellectual disabilities F70 and Depressive disorder F32.9 [facility] [address] [address] Nov, [facility] [address] [address] Nov, [facility] [address] [address] Nov, [facility] [address] [address] Nov, [facility] [address] [address] Nov, [facility] [address] [address] 05 Nov, 2017 Impulse control disorder F63.9 ; Depress douglas disorder F32.9 and Mild intellectual disabilities F70 [facility] [address] [address] October, [facility] [address] [address] October, Impulse control disorder F63.9 ; Depress douglas disorder F32.9 and Mild intellectual disabilities F70 [facility] [address] [place] [id number] Sep, [facility] [address] [address] Sep, Impulse control disorder F63.9 ; Depress douglas disorder F32.9 and Mild intellectual disabilities F70 [facility] [address] [address] Sep, Impulse control disorder F63.9 ; Depress douglas disorder F32.9 and Mild intellectual disabilities F70 [facility] [address] [address] Aug, [facility] [address] [address] Aug, Impulse control disorder F63.9 ; Depress douglas disorder F32.9 and Mild intellectual disabilities F70 [facility] [address] [id number] Aug, Dental examination Z01.20 [facility] [address] [address] Aug, [facility] [address] [address] Aug, Impulse control disorder F63.9 ; Depress douglas disorder F32.9 and Mild intellectual disabilities F70 [facility] [address] [address] Jul, Impulse control disorder F63.9 ; Depress douglas disorder F32.9 and Mild intellectual disabilities F70 [facility] [address] [id number] 12 Jul, 2017 Dental examination Z01.20 [facility] [address] [address] Jul, [facility] [address] [address] Jun, Impulse control disorder F63.9 ; Depress douglas disorder F32.9 and Mild intellectual disabilities F70 [facility] [address] [address] 08 Jun, 2017 Impulse control disorder F63.9 ; Depress douglas disorder F32.9 and Mild intellectual disabilities F70 [facility] [address] [address] Jun, [facility] [address] [address] 08 May, 2017 [facility] [address] [address] May, Impulse control disorder F63.9 ; Depress douglas disorder F32.9 and Mild intellectual disabilities F70 [facility] [address] [address] Apr, Impulse control disorder F63.9 ; Depress douglas disorder F32.9 and Mild intellectual disabilities F70 [facility] [address] [address] Apr, Seizures R56.9 [place] [address] [address] Apr, [facility] [address] [address] Apr, Seizures R56.9 ; Tobacco abuse Z72.0 ; A lcohol abuse F10.10 and Encounter for immunization Z23 [facility] [address] [address] 14 Apr, 2017 Impulse control disorder F63.9 ; Depress douglas disorder F32.9 and Mild intellectual disabilities F70 [facility] [address] [address] Mar, Impulse control disorder F63.9 ; Depress douglas disorder F32.9 and Mild intellectual disabilities F70 [facility] [address] [address] Mar, [facility] [address] [address] Mar, Impulse control disorder F63.9 ; Depress douglas disorder F32.9 and Mild intellectual disabilities F70 [facility] [address] [address] Mar, [facility] [address] [address] Feb, Impulse control disorder F63.9 ; Depress douglas disorder F32.9 and Mild intellectual disabilities F70 [facility] [address] [address] Feb, [facility] [address] [address] Feb, Impulse control disorder F63.9 ; Depress douglas disorder F32.9 and Mild intellectual disabilities F70 [facility] [address] [address] Jan, Annual physical exam Z00.00 ; Right hand pain M79.641 ; Impulse control disorder F63.9 ; Mild intellectual disabilities F70 and Depressive disorder F32.9 [facility] [address] [address] Jan, Impulse control disorder F63.9 ; Depress douglas disorder F32.9 and Mild intellectual disabilities F70 [facility] [address] [address] Jan, [facility] [address] [address] Jan, Impulse control disorder F63.9 ; Depress douglas disorder F32.9 and Mild intellectual disabilities F70 [facility] [address] [place] [address] Jan, Impulse control disorder F63.9 ; Depress douglas disorder F32.9 and Mild intellectual disabilities F70 [facility] [address] [place] [id number] [place] [address] 14 Dec, 2016 [facility] [address] [address] Dec, Impulse control disorder F63.9 ; Depress douglas disorder F32.9 and Mild intellectual disabilities F70 [facility] [address] [address] Nov, Impulse control disorder F63.9 ; Depress douglas disorder F32.9 and Mild intellectual disabilities F70 [facility] [address] [address] Nov, [facility] [address] [address] Nov, [facility] [address] [address] Nov, [facility] [address] [address] October, Impulse control disorder F63.9 ; Depress douglas disorder F32.9 and Mild intellectual disabilities F70 [facility] [address] [address] October, [facility] [address] [address] October, Impulse control disorder F63.9 ; Depress douglas disorder F32.9 and Mild intellectual disabilities F70 [facility] [address] [address] Sep, [facility] [address] [address] Sep, Impulse control disorder F63.9 ; Depress douglas disorder F32.9 and Mild intellectual disabilities F70 [facility] [address] [address] Sep, Seasonal allergic rhinitis due to pollen J30.1 [facility] [address] [address] Sep, [facility] [address] [address] Sep, [facility] [address] [address] Sep, Impulse control disorder F63.9 ; Depress douglas disorder F32.9 and Mild intellectual disabilities F70 [facility] [address] [address] Aug, Impulse control disorder F63.9 ; Depress douglas disorder F32.9 and Mild intellectual disabilities F70 [facility] [address] [address] Aug, [facility] [address] [address] Aug, [facility] [address] [address] Jul, [facility] [address] [address] Jul, Impulse control disorder F63.9 ; Depress douglas disorder F32.9 and Mild intellectual disabilities F70 [facility] [address] [facility] [place] [id number] 10 Jul, 2016 Dental examination Z01.20 [facility] [address] [address] Jul, Impulse control disorder F63.9 ; Depress douglas disorder F32.9 and Mild intellectual disabilities F70 [facility] [address] [address] Jul, [facility] [address] [address] Jun, [facility] [address] [address] Jun, Impulse control disorder F63.9 ; Depress douglas disorder F32.9 and Mild intellectual disabilities F70 [facility] [address] [address] Jun, [facility] [address] [address] Jun, [facility] [address] [address] Jun, Impulse control disorder F63.9 ; Depress douglas disorder F32.9 and Mild intellectual disabilities F70 [facility] [address] [address] May, Impulse control disorder F63.9 ; Depress douglas disorder F32.9 and Mild intellectual disabilities F70 [facility] [address] [address] May, Annual physical exam Z00.00 ; Other fati sarah R53.83 ; Seizures R56.9 ; Mild intellectual disabilities F70 and Impulse control disorder F63.9 [facility] [address] [address] May, [facility] [address] [address] May, Impulse control disorder F63.9 ; Depress douglas disorder F32.9 and Mild intellectual disabilities F70 [facility] [address] [place] [id number] [place] [id number] 30 Apr, 2016 Encounter for dental examination Z01.20 [facility] [address] [address] Apr, Impulse control disorder F63.9 ; Depress douglas disorder F32.9 and Mild intellectual disabilities F70 [facility] [address] [address] Apr, [facility] [address] [address] Mar, Impulse control disorder F63.9 ; Depress douglas disorder F32.9 and Mild intellectual disabilities F70 [facility] [address] [address] Mar, Impulse control disorder F63.9 ; Depress douglas disorder F32.9 and Mild intellectual disabilities F70 [facility] [address] [place] [id number] [place] [address] Mar, [facility] [address] [address] Mar, [facility] [address] [address] Feb, Impulse control disorder F63.9 ; Depress douglas disorder F32.9 and Mild intellectual disabilities F70 [facility] [address] [address] Feb, Impulse control disorder F63.9 ; Depress douglas disorder F32.9 and Mild intellectual disabilities F70 [facility] [address] [address] Feb, [facility] [address] [address] Jan, Annual physical exam Z00.00 ; Impulse co ntrol disorder F63.9 ; Mild intellectual disabilities F70 ; Depressive disorder F32.9 and Seizures R56.9 [facility] [address] [address] Jan, Impulse control disorder F63.9 ; Depress douglas disorder F32.9 and Mild intellectual disabilities F70 [facility] [address] [address] Jan, [facility] [address] [address] Jan, Impulse control disorder F63.9 ; Depress douglas disorder F32.9 and Mild intellectual disabilities F70 [facility] [address] [address] Jan, [facility] [address] [address] Jan, [facility] [address] [address] Dec, Impulse control disorder F63.9 ; Depress douglas disorder F32.9 and Mild intellectual disabilities F70 [facility] [address] [address] Dec, Impulse control disorder F63.9 ; Depress douglas disorder F32.9 and Mild intellectual disabilities F70 [facility] [address] [address] Dec, [facility] [address] [address] Dec, Depressive disorder F32.9 ; Impulse cont rol disorder F63.9 and Mild intellectual disabilities F70 [facility] [address] [address] Nov, [facility] [address] [address] Nov, Depressive disorder F32.9 ; Impulse cont rol disorder F63.9 and Mild intellectual disabilities F70 [facility] [address] [address] Nov, [facility] [address] [address] October, Depressive disorder F32.9 ; Impulse cont rol disorder F63.9 and Mild intellectual disabilities F70 [facility] [address] [address] October, [facility] [address] [address] October, [facility] [address] [address] October, Depressive disorder F32.9 ; Impulse cont rol disorder F63.9 and Mild intellectual disabilities F70 [facility] [address] [address] October, [facility] [address] [address] Sep, [facility] [address] [address] Sep, Depressive disorder F32.9 ; Impulse cont rol disorder F63.9 and Mild intellectual disabilities F70 [facility] [address] [address] Sep, Depressive disorder F32.9 ; Impulse cont rol disorder F63.9 and Mild intellectual disabilities F70 [facility] [address] [address] Sep, [facility] [address] [address] Aug, [facility] [address] [address] Aug, Depressive disorder F32.9 ; Impulse cont rol disorder F63.9 and Mild intellectual disabilities F70 [facility] [address] [address] Aug, Depressive disorder F32.9 ; Impulse cont rol disorder F63.9 and Mild intellectual disabilities F70 [facility] [id number] [place] [id number] Jul, Dental examination Z01.20 [facility] [address] [address] Jul, [facility] [address] [address] Jul, Depressive disorder F32.9 ; Impulse cont rol disorder F63.9 and Mild intellectual disabilities F70 [facility] [address] [address] 05 Jul, 2015 Depressive disorder F32.9 ; Impulse cont rol disorder F63.9 and Mild intellectual disabilities F70 [facility] [address] [address] 02 Jul, 2015 Depression screening Z13.89 ; 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, 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 and Screening for STD sexually transmitted disease Z11.3 [facility] [address] [place] [id number] Jun, [facility] [address] [address] Jun, Depressive disorder F32.9 ; Impulse cont rol disorder F63.9 and Mild intellectual disabilities F70 [facility] [address] [address] Jun, Depressive disorder, not elsewhere class ified F32.9 ; Mild mental retardation F70 and Impulse control disorder F63.9 [place] [address] [address] Jun, Depressive disorder, not elsewhere class ified F32.9 ; Impulse control disorder F63.9 and Mild intellectual disabilities F70 [facility] [address] [address] Jun, [facility] [id number] [place] [id number] Jun, Dental examination Z01.20 [facility] [address] [address] May, Depressive disorder, not elsewhere class ified F32.9 ; Impulse control disorder F63.9 and Mild intellectual disabilities F70 [facility] [address] [address] May, [facility] [address] [address] May, [facility] [address] [address] May, Depressive disorder, not elsewhere class ified F32.9 ; Impulse control disorder F63.9 and Mild intellectual disabilities F70 [facility] [address] [address] May, Depressive disorder, not elsewhere class ified F32.9 ; Impulse control disorder F63.9 and Mild mental retardation F70 [facility] [address] [address] Apr, Depressive disorder, not elsewhere class ified F32.9 ; Impulse control disorder F63.9 and Mild intellectual disabilities F70 [facility] [address] [address] Apr, [facility] [address] [address] Mar, Depressive disorder, not elsewhere class ified F32.9 ; Impulse control disorder F63.9 and Mild intellectual disabilities F70 [facility] [address] [address] Mar, Depressive disorder, not elsewhere class ified F32.9 ; Impulse control disorder F63.9 and Mild intellectual disabilities F70 [facility] [address] [address] Mar, [facility] [address] [address] Mar, Encounter for immunization Z23 [facility] [address] [address] Mar, Depressive disorder, not elsewhere class ified F32.9 ; Impulse control disorder F63.9 and Mild intellectual disabilities F70 [facility] [address] [address] Feb, Depressive disorder, not elsewhere class ified 311 ; Impulse control disorder, unspecified 312.30 and Mild mental retardation 317 [facility] [address] [address] Feb, [facility] [address] [address] Feb, Depressive disorder, not elsewhere class ified 311 ; Impulse control disorder, unspecified 312.30 and Mild mental retardation 317 [facility] [address] [address] Jan, Depressive disorder, not elsewhere class ified 311 ; Impulse control disorder, unspecified 312.30 and Mild mental retardation 317 [place] [address] [address] Jan, Depressive disorder, not elsewhere class ified 311 ; Impulse control disorder, unspecified 312.30 and Mild mental retardation 317 [place] [address] [address] Jan, [place] [address] [address] Jan, Depressive disorder, not elsewhere class ified 311 ; Impulse control disorder, unspecified 312.30 and Mild mental retardation 317 [place] [address] [address] Dec, Depressive disorder, not elsewhere class ified 311 ; Impulse control disorder, unspecified 312.30 and Mild mental retardation 317 [place] [address] [address] Dec, [facility] [id number] [place] [id number] Dec, Dental examination V72.[address] [address] Dec, Heat rash 705.1 ; Seizures 780.39 and Hi gh risk medication use V58.69 [place] [address] [address] Dec, [place] [address] [address] Dec, Depressive disorder, not elsewhere class ified 311 ; Impulse control disorder, unspecified 312.30 and Mild mental retardation [address] [place] [address] [address] Nov, Depressive disorder, not elsewhere class ified 311 ; Impulse control disorder, unspecified 312.30 and Mild mental retardation 317 [place] [address] [address] Nov, [facility] [id number] [place] [address] Nov, Nicotine addiction 305.1 [facility] [id number] [place] [address] 11 Nov, 2014 [facility] [id number] [place] [address] 11 Nov, 2014 High risk medication use V58.69 [facility] [address] [address] 10 Nov, 2014 High risk medication use V58.69 [facility] [id number] [place] [address] 09 Nov, 2014 Depressive disorder, not elsewhere class ified 311 ; Impulse control disorder, unspecified 312.30 and Mild mental retardation 317 [facility] [id number] [place] [address] Nov, Depressive disorder, not elsewhere class ified 311 ; 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 and Impulse control disorder, unspecified 312.30 [facility] [id number] [place] [address] October, Depressive disorder, not elsewhere class ified 311 ; Impulse control disorder, unspecified 312.30 and Mild mental retardation 317 [facility] [id number] [place] [address] October, [facility] [id number] [place] [address] October, Depressive disorder, not elsewhere class ified 311 ; Impulse control disorder, unspecified 312.30 and Mild mental retardation 317 [facility] [id number] [place] [address] October, [facility] [address] [id number] [place] [id number] October, Dental examination V72.2 [facility] [id number] [place] [address] Sep, Depressive disorder, not elsewhere class ified 311 ; Impulse control disorder 312.30 and Mild mental retardation 317 [facility] [place] [facility] [address] [id number] [place] [address] 14 Sep, 2014 [facility] [place] [facility] [address] [id number] [place] [address] 13 Sep, 2014 [facility] [place] [facility] [address] [id number] [place] [address] 26 Aug, 2014 [facility] [place] [facility] [address] [id number] [place] [address] 26 Aug, 2014 [facility] [place] [facility] [address] [id number] [place] [address] Aug, [facility] [place] [facility] [address] [id number] [place] [address] 18 Aug, 2014 [facility] [place] [facility] [address] [id number] [place] [address] Aug, [facility] [place] [facility] [id number] [place] [address] Aug, [facility] [place] [facility] [address] [id number] [place] [address] Aug, [facility] [place] [facility] [address] [id number] [place] [address] Aug, [facility] [place] [facility] [address] [id number] [place] [address] Jul, 2014 [facility] [place] [facility] [address] [id number] [place] [address] Jul, 2014 [facility] [place] [facility] [address] [id number] [place] [address] Jul, 2014 [facility] [place] [facility] [address] [id number] [place] [address] Jul, 2014 [facility] [place] [facility] [address] [id number] [place] [address] 16 Jul, 2014 [facility] [place] [facility] [address] [id number] [place] [address] 16 Jul, 2014 [facility] [place] [facility] [address] [id number] [place] [address] Jul, 2014 [facility] [place] [facility] [address] [facility] [address] [facility] [id number] [place] [address] Jul, 2014 [facility] [place] [facility] [address] [id number] [place] [address] Jul, 2014 [facility] [place] [facility] [address] [id number] [place] [address] Jul, 2014 [facility] [place] [facility] [address] [id number] [place] [address] Jul, [facility] [place] [facility] [address] [id number] [place] [address] Jul, [facility] [place] [facility] [address] [id number] [place] [address] Jul, [facility] [place] [facility] [address] [id number] [place] [address] Jul, [facility] [place] [facility] [address] [id number] [place] [address] Jun, [facility] [place] [facility] [address] [id number] [place] [address] Jun, [facility] [place] [facility] [address] [id number] [place] [address] Jun, [facility] [place] [facility] [address] [id number] [place] [address] Jun, [facility] [place] [facility] [address] [id number] [place] [address] Jun, [facility] [place] [facility] [address] [id number] [place] [address] Jun, [facility] [place] [facility] [address] [id number] [place] [address] Jun, [facility] [place] [facility] [address] [id number] [place] [address] Jun, [facility] [place] [facility] [address] [id number] [place] [address] 15 Jun, 2014 [facility] [place] [facility] [address] [id number] [place] [address] 15 Jun, 2014 [facility] [place] [facility] [address] [id number] [place] [address] 15 Jun, 2014 [facility] [place] [facility] [address] [id number] [place] [address] 15 Jun, 2014 [facility] [place] [facility] [address] [id number] [place] [address] 08 Jun, 2014 [facility] [place] [facility] [address] [id number] [place] [address] 08 Jun, 2014 [facility] [place] [facility] [address] [id number] [place] [address] 08 Jun, 2014 [facility] [place] [facility] [address] [id number] [place] [address] 08 Jun, 2014 [facility] [place] [facility] [address] [id number] [place] [address] 08 Jun, 2014 [facility] [place] [facility] [address] [id number] [place] [address] 08 Jun, 2014 [facility] [place] [facility] [address] [id number] [place] [address] Jun, [facility] [place] [facility] [address] [id number] [place] [address] 08 Jun, 2014 [facility] [place] [facility] [address] [id number] [place] [address] May, [facility] [place] [facility] [address] [id number] [place] [address] May, [facility] [place] [facility] [address] [id number] [place] [address] May, [facility] [place] [facility] [address] [id number] [place] [address] May, [facility] [place] [facility] [address] [id number] [place] [address] May, [facility] [place] [facility] [address] [id number] [place] [address] Apr, [facility] [place] [facility] [address] [id number] [place] [address] Apr, [facility] [place] [facility] [address] [id number] [place] [address] Apr, [facility] [place] [facility] [address] [id number] [place] [address] Apr, [facility] [place] [facility] [address] [id number] [place] [address] Apr, [facility] [place] [facility] [address] [id number] [place] [address] Apr, [facility] [place] [facility] [address] [id number] [place] [address] Apr, [facility] [place] [facility] [address] [id number] [place] [address] Apr, [facility] [place] [facility] [address] [id number] [place] [address] Mar, [facility] [place] [facility] [address] [id number] [place] [address] Mar, [facility] [place] [facility] [address] [id number] [place] [address] Mar, [facility] [place] [facility] [address] [id number] [place] [address] Mar, [facility] [place] [facility] [address] [id number] [place] [address] Mar, [facility] [place] [facility] [address] [id number] [place] [address] Mar, [facility] [place] [facility] [address] [id number] [place] [address] Mar, [facility] [place] [facility] [address] [id number] [place] [address] Mar, [facility] [place] [facility] [address] [id number] [place] [address] Mar, [facility] [place] [facility] [address] [id number] [place] [address] 16 Mar, 2013 [facility] [place] [facility] [address] [id number] [place] [address] 16 Mar, 2013 [facility] [place] [facility] [address] [id number] [place] [address] 16 Mar, 2013 [facility] [place] [facility] [address] [id number] [place] [address] 15 Mar, 2013 [facility] [place] [facility] [address] [id number] [place] [address] 15 Mar, 2013 [facility] [place] [facility] [address] [id number] [place] [address] Mar, 2013 [facility] [place] [facility] [address] [id number] [place] [address] Mar, 2013 [facility] [place] [facility] [address] [id number] [place] [address] Mar, 2013 [facility] [place] [facility] [address] [id number] [place] [address] Mar, 2013 [facility] [place] [facility] [address] [id number] [place] [address] Mar, [facility] [place] [facility] [address] [id number] [place] [address] Mar, 2013 [facility] [place] [facility] [address] [id number] [place] [address] 24 Feb, 2013 [facility] [place] [facility] [address] [id number] [place] [address] 24 Sep, 2013 [facility] [place] [facility] [address] [id number] [place] [address] 19 Sep, 2013 [facility] [place] [facility] [address] [id number] [place] [address] 19 Sep, 2013 [facility] [place] [facility] [address] [id number] [place] [address] 11 Sep, 2013 [facility] [place] [facility] [address] [id number] [place] [address] Feb, [facility] [place] [facility] [address] [facility] [id number] [place] [address] Feb, [facility] [place] [facility] [address] [facility] [id number] [place] [address] Feb, [facility] [place] [facility] [address] [facility] [id number] [place] [address] Jan, [facility] [place] [facility] [address] [facility] [id number] [place] [address] Jan, [facility] [place] [facility] [address] [facility] [id number] [place] [address] Jan, [facility] [place] [facility] [address] [facility] [id number] [place] [address] Jan, [facility] [place] [facility] [address] [facility] [id number] [place] [address] Dec, [facility] [place] [facility] [address] [id number] [place] [address] Dec, [facility] [place] [facility] [address] [facility] [id number] [place] [address] Dec, [facility] [place] [facility] [address] [facility] [id number] [place] [address] Dec, [facility] [place] [facility] [address] [facility] [id number] [place] [address] Dec, [facility] [place] [facility] [address] [id number] [place] [address] Dec, [facility] [place] [facility] [address] [facility] [id number] [place] [address] Dec, [facility] [place] [facility] [address] [facility] [id number] [place] [address] Dec, [facility] [place] [facility] [address] [facility] [id number] [place] [address] Dec, [facility] [place] [facility] [address] [facility] [id number] [place] [address] Dec, [facility] [place] [facility] [address] [facility] [id number] [place] [address] Nov, [facility] [place] [facility] [address] [id number] [place] [address] Nov, [facility] [place] [facility] [address] [facility] [id number] [place] [address] Nov, [facility] [place] [facility] [address] [id number] [place] [address] Nov, [facility] [place] [facility] [address] [facility] [id number] [place] [address] Nov, [facility] [place] [facility] [address] [facility] [id number] [place] [address] Nov, [facility] [place] [facility] [address] [id number] [place] [address] Nov, [facility] [place] [facility] [address] [id number] [place] [address] Nov, [facility] [place] [facility] [address] [id number] [place] [address] Nov, [facility] [place] [facility] [address] [id number] [place] [address] Nov, [facility] [place] [facility] [address] [id number] [place] [address] Nov, [facility] [place] [facility] [address] [id number] [place] [address] Nov, [facility] [place] [facility] [address] [id number] [place] [address] October, [facility] [place] [facility] [address] [id number] [place] [address] October, [facility] [place] [facility] [address] [id number] [place] [address] October, [facility] [place] [facility] [address] [id number] [place] [address] October, [facility] [place] [facility] [address] [id number] [place] [address] October, [facility] [place] [facility] [address] [id number] [place] [address] October, [facility] [place] [facility] [address] [id number] [place] [address] October, [facility] [place] [facility] [address] [id number] [place] [address] October, [facility] [place] [facility] [address] [id number] [place] [address] October, [facility] [place] [facility] [address] [id number] [place] [address] October, [facility] [place] [facility] [address] [id number] [place] [address] Sep, [facility] [place] [facility] [address] [id number] [place] [address] Sep, [facility] [place] [facility] [address] [id number] [place] [address] Sep, [facility] [place] [facility] [address] [id number] [place] [address] Sep, [facility] [place] [facility] [address] [id number] [place] [address] Sep, [facility] [place] [facility] [address] [id number] [place] [address] Sep, [facility] [place] [facility] [address] [id number] [place] [address] Sep, [facility] [place] [facility] [address] [id number] [place] [address] Sep, [facility] [place] [facility] [address] [id number] [place] [address] Aug, [facility] [place] [facility] [address] [id number] [place] [address] Aug, [facility] [place] [facility] [address] [id number] [place] [address] Aug, [facility] [place] [facility] [address] [id number] [place] [address] Aug, [facility] [place] [facility] [address] [id number] [place] [address] Aug, [facility] [place] [facility] [address] [id number] [place] [address] Aug, [facility] [place] [facility] [address] [id number] [place] [address] Aug, [facility] [place] [facility] [address] [id number] [place] [address] Aug, [facility] [place] [facility] [address] [id number] [place] [address] Jul, [facility] [place] [facility] [address] [id number] [place] [address] Jul, [facility] [place] [facility] [address] [id number] [place] [address] Jul, [facility] [place] [facility] [address] [id number] [place] [address] Jul, [facility] [place] [facility] [address] [id number] [place] [address] Jul, [facility] [place] [facility] [address] [id number] [place] [address] Jul, [facility] [place] [facility] [address] [id number] [place] [address] Jul, [facility] [place] [facility] [address] [id number] [place] [address] Jul, [facility] [place] [facility] [address] [id number] [place] [address] Jun, [facility] [place] [facility] [address] [id number] [place] [address] Jun, [facility] [place] [facility] [address] [id number] [place] [address] Jun, [facility] [place] [facility] [address] [id number] [place] [address] Jun, [facility] [place] [facility] [address] [id number] [place] [address] 16 Jun, 2013 [facility] [place] [facility] [address] [id number] [place] [address] Jun, [facility] [place] [facility] [address] [id number] [place] [address] Jun, [facility] [place] [facility] [address] [id number] [place] [address] Jun, [facility] [place] [facility] [address] [id number] [place] [address] May, [facility] [place] [facility] [address] [id number] [place] [address] May, [facility] [place] [facility] [address] [id number] [place] [address] May, [facility] [place] [facility] [address] [id number] [place] [address] May, [facility] [place] [facility] [address] [id number] [place] [address] May, [facility] [place] [facility] [address] [id number] [place] [address] May, [facility] [place] [facility] [address] [id number] [place] [address] Apr, [facility] [place] [facility] [address] [id number] [place] [address] Apr, [facility] [place] [facility] [address] [id number] [place] [address] Mar, [facility] [place] [facility] [address] [id number] [place] [address] Mar, [facility] [place] [facility] [id number] [place] [address] Mar, [facility] [place] [facility] [address] [id number] [place] [address] Mar, [facility] [place] [facility] [address] [id number] [place] [address] Mar, [facility] [place] [facility] [address] [id number] [place] [address] Feb, [facility] [place] [facility] [address] [facility] [id number] [place] [address] Jan, [facility] [place] [facility] [address] [id number] [place] [address] Jan, [facility] [place] [facility] [address] [id number] [place] [address] Jan, [facility] [place] [facility] [address] [facility] [id number] [place] [address] Jan, [facility] [place] [facility] [address] [id number] [place] [address] Jan, [facility] [place] [facility] [address] [id number] [place] [address] Dec, [facility] [address] [id number] [place] [address] Dec, [facility] [address] [id number] [place] [address] Dec, [facility] [address] [id number] [place] [address] Dec, [facility] [address] [id number] [place] [address] Nov, [facility] [address] [id number] [place] [address] Nov, [facility] [address] [id number] [place] [address] Nov, [facility] [address] [id number] [place] [address] October, [facility] [address] [id number] [place] [address] October, [facility] [address] [id number] [place] [address] October, [facility] [address] [id number] [place] [address] Sep, [facility] [address] [id number] [place] [address] Sep, [facility] [address] [id number] [place] [address] Aug, [facility] [address] [id number] [place] [address] Aug, [facility] [address] [id number] [place] [address] Jul, [facility] [address] [id number] [place] [address] Jul, [facility] [address] [id number] [place] [address] Jul, [facility] [address] [id number] [place] [address] Jul, [facility] [address] [id number] [place] [address] Jul, [facility] [address] [id number] [place] [address] Jun, [facility] [address] [id number] [place] [address] May, [facility] [address] [id number] [place] [address] 31 May, 2012 [facility] [address] [id number] [place] [address] 14 May, 2012 [facility] [address] [id number] [place] [address] 14 May, 2012 [facility] [id number] [place] [address] 13 May, 2012 [facility] [address] [id number] [place] [address] 13 May, 2012 [facility] [address] [id number] [place] [address] May, [facility] [address] [id number] [place] [address] May, [facility] [address] [id number] [place] [address] Apr, [facility] [address] [id number] [place] [address] Apr, [facility] [address] [id number] [place] [address] Apr, [facility] [address] [id number] [place] [address] Apr, [facility] [address] [id number] [place] [address] Mar, [facility] [address] [id number] [place] [address] Mar, [facility] [address] [id number] [place] [address] Mar, [facility] [address] [id number] [place] [address] Feb, [facility] [address] [id number] [place] [address] Feb, [facility] [address] [id number] [place] [address] Jan, [facility] [address] [id number] [place] [address] Jan, [facility] [address] [id number] [place] [address] Jan, [facility] [address] [id number] [place] [address] Dec, [facility] [address] [id number] [place] [address] Dec, [facility] [address] [id number] [place] [address] Dec, [facility] [address] [id number] [place] [address] Dec, [facility] [address] [id number] [place] [address] Nov, [facility] [address] [id number] [place] [address] Nov, [facility] [address] [id number] [place] [address] Nov, [facility] [address] [id number] [place] [address] October, [facility] [address] [id number] [place] [address] October, [facility] [address] [id number] [place] [address] October, [facility] [address] [id number] [place] [address] Sep, [facility] [address] [id number] [place] [address] Sep, [facility] [address] [id number] [place] [address] Sep, [facility] [address] [id number] [place] [address] 30 Aug, 2011 [facility] [address] [id number] [place] [address] 15 Aug, 2011 [facility] [address] [id number] [place] [address] Aug, [facility] [address] [id number] [place] [address] Jul, [facility] [address] [id number] [place] [address] Jun, [facility] [address] [id number] [place] [address] Jun, [facility] [address] [id number] [place] [address] May, [facility] [address] [id number] [place] [address] May, [facility] [address] [id number] [place] [address] May, [facility] [address] [id number] [place] [address] May, [facility] [id number] [place] [address] Apr, [facility] [id number] [place] [address] Apr, [facility] [address] [id number] [place] [address] Apr, [facility] [address] [id number] [place] [address] Apr, [facility] [id number] [place] [address] Apr, [facility] [id number] [place] [address] Mar, [facility] [address] [id number] [place] [address] Mar, [facility] [id number] [place] [address] Jan, [facility] [id number] [place] [address] May, [facility] [address] [id number] [place] [address] Apr, [facility] [address] [id number] [place] [address] Mar, [facility] [id number] [place] [address] Jun, [facility] [address] [id number] [place] [address] Apr, [facility] [id number] [place] [address] Apr, IMMUNIZATIONS No Known Immunizations SOCIAL HISTORY Never Assessed REASON FOR VISIT PLAN OF CARE VITAL SIGNS MEDICATIONS Unknown Medications RESULTS No Results PROCEDURES Procedure Date Ordered Result Body Site PSYTX PT&/FAMILY 45 MINUTES August 28, 2013 INSTRUCTIONS MEDICATIONS ADMINISTERED No Known Medications MEDICAL (GENERAL) HISTORY Type Description Date Medical History seizures Surgical History No Surgical history information
--- OUTSIDE RECORDS SUMMARY | 2019-09-07 02:32 | XMS REPORT ---
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 Activ e [id number] Problem Impulse control disorder F63.9 Activ e [id number] Problem Depressive disorder F32.9 Active 99330444 Problem Mild intellectual disabilities F70 Active [id number] Problem Seasonal allergic rhinitis due to pollen J30.1 Active 52022850 ALLERGIES No Information ENCOUNTERS Encounter Location Date Diagnosis [place] [address] [address] Aug, [place] [address] [address] Jul, [place] [address] [address] Jul, Depressive disorder F32.9 [place] [address] [address] Jul, [place] [address] [address] May, [place] [address] [address] Apr, [place] [address] [address] Apr, Depressive disorder F32.9 ; Impulse cont rol disorder F63.9 and Mild intellectual disabilities F70 [place] [address] [address] Apr, [facility] [id number] [place] [address] Apr, [facility] [address] [address] Apr, [facility] [id number] [place] [address] Apr, Impulse control disorder F63.9 ; Depress douglas disorder F32.9 and Mild intellectual disabilities F70 [address] [place] [address] Mar, [facility] [address] [address] Mar, [facility] [address] [address] Mar, Encounter for immunization Z23 [facility] [address] [address] Dec, [facility] [id number] [place] [address] Dec, Seasonal allergic rhinitis due to pollen J30.1 [facility] [address] [address] October, Depressive disorder F32.9 ; Impulse cont rol disorder F63.9 and Mild intellectual disabilities F70 [facility] [address] [place] [id number] [place] [address] Jun, Impulse control disorder F63.9 ; Mild in tellectual disabilities F70 ; Relationship dysfunction Z63.9 and Depressive disorder F32.9 [facility] [id number] [place] [address] Jun, [facility] [address] [address] May, [facility] [address] [address] May, [facility] [address] [address] May, Encounter for immunization Z23 [facility] [id number] [place] [address] Apr, [facility] [id number] [place] [address] Apr, [facility] [id number] [place] [address] Mar, [facility] [id number] [place] [address] Mar, [facility] [id number] [place] [address] 26 Feb, 2018 Annual physical exam Z00.00 [facility] [id number] [place] [address] 25 Feb, 2018 Annual physical exam Z00.00 ; Mild intel lectual disabilities F70 and Encounter for immunization Z23 [facility] [id number] [place] [address] Feb, [facility] [id number] [place] [address] Jan, [facility] [id number] [place] [address] Jan, Impulse control disorder F63.9 ; Mild in tellectual disabilities F70 and Depressive disorder F32.9 [facility] [id number] [place] [address] Nov, [facility] [id number] [place] [address] Nov, [facility] [id number] [place] [address] Nov, [facility] [id number] [place] [address] Nov, [facility] [id number] [place] [address] Nov, [facility] [id number] [place] [address] Nov, Impulse control disorder F63.9 ; Depress douglas disorder F32.9 and Mild intellectual disabilities F70 [facility] [address] [id number] [place] [address] October, [facility] [address] [address] October, Impulse control disorder F63.9 ; Depress douglas disorder F32.9 and Mild intellectual disabilities F70 [facility] [address] [place] [id number] [place] [address] Sep, [facility] [address] [address] Sep, Impulse control disorder F63.9 ; Depress douglas disorder F32.9 and Mild intellectual disabilities F70 [facility] [address] [address] Sep, Impulse control disorder F63.9 ; Depress douglas disorder F32.9 and Mild intellectual disabilities F70 [facility] [address] [id number] [place] [address] Aug, [facility] [address] [address] Aug, Impulse control disorder F63.9 ; Depress douglas disorder F32.9 and Mild intellectual disabilities F70 [facility] [address] [id number] [place] [id number] Aug, Dental examination Z01.20 [facility] [address] [id number] [place] [address] Aug, [facility] [address] [address] Aug, Impulse control disorder F63.9 ; Depress douglas disorder F32.9 and Mild intellectual disabilities F70 [facility] [address] [address] Jul, Impulse control disorder F63.9 ; Depress douglas disorder F32.9 and Mild intellectual disabilities F70 [facility] [address] [id number] [place] [id number] 12 Jul, 2017 Dental examination Z01.20 [facility] [address] [address] 02 Jul, 2017 [facility] [address] [address] Jun, Impulse control disorder F63.9 ; Depress douglas disorder F32.9 and Mild intellectual disabilities F70 [facility] [address] [address] 08 Jun, 2017 Impulse control disorder F63.9 ; Depress douglas disorder F32.9 and Mild intellectual disabilities F70 [facility] [address] [address] 08 Jun, 2017 [facility] [address] [address] 08 May, 2017 [facility] [address] [address] 05 May, 2017 Impulse control disorder F63.9 ; Depress douglas disorder F32.9 and Mild intellectual disabilities F70 [facility] [address] [address] Apr, Impulse control disorder F63.9 ; Depress douglas disorder F32.9 and Mild intellectual disabilities F70 [facility] [address] [address] 30 Apr, 2017 Seizures R56.9 [facility] [address] [address] Apr, [facility] [address] [address] Apr, Seizures R56.9 ; Tobacco abuse Z72.0 ; A lcohol abuse F10.10 and Encounter for immunization Z23 [facility] [address] [address] 14 Apr, 2017 Impulse control disorder F63.9 ; Depress douglas disorder F32.9 and Mild intellectual disabilities F70 [facility] [address] [address] Mar, Impulse control disorder F63.9 ; Depress douglas disorder F32.9 and Mild intellectual disabilities F70 [facility] [address] [address] Mar, [facility] [address] [address] Mar, Impulse control disorder F63.9 ; Depress douglas disorder F32.9 and Mild intellectual disabilities F70 [facility] [address] [address] Mar, [facility] [address] [address] Feb, Impulse control disorder F63.9 ; Depress douglas disorder F32.9 and Mild intellectual disabilities F70 [facility] [address] [address] Feb, [facility] [address] [address] Feb, Impulse control disorder F63.9 ; Depress douglas disorder F32.9 and Mild intellectual disabilities F70 [facility] [address] [address] Jan, Annual physical exam Z00.00 ; Right hand pain M79.641 ; Impulse control disorder F63.9 ; Mild intellectual disabilities F70 and Depressive disorder F32.9 [facility] [address] [address] Jan, Impulse control disorder F63.9 ; Depress douglas disorder F32.9 and Mild intellectual disabilities F70 [facility] [address] [address] Jan, [facility] [address] [address] Jan, Impulse control disorder F63.9 ; Depress douglas disorder F32.9 and Mild intellectual disabilities F70 [facility] [address] [place] [id number] [place] [address] Jan, Impulse control disorder F63.9 ; Depress douglas disorder F32.9 and Mild intellectual disabilities F70 [facility] [address] [address] [id number] [place] [address] Dec, [facility] [address] [address] Dec, Impulse control disorder F63.9 ; Depress douglas disorder F32.9 and Mild intellectual disabilities F70 [facility] [address] [address] Nov, Impulse control disorder F63.9 ; Depress douglas disorder F32.9 and Mild intellectual disabilities F70 [facility] [address] [address] Nov, [facility] [address] [address] Nov, [facility] [address] [address] Nov, [facility] [address] [address] October, Impulse control disorder F63.9 ; Depress douglas disorder F32.9 and Mild intellectual disabilities F70 [facility] [address] [address] October, [facility] [address] [address] October, Impulse control disorder F63.9 ; Depress douglas disorder F32.9 and Mild intellectual disabilities F70 [facility] [address] [id number] [place] [address] Sep, [facility] [address] [address] Sep, Impulse control disorder F63.9 ; Depress douglas disorder F32.9 and Mild intellectual disabilities F70 [facility] [id number] [place] [address] Sep, Seasonal allergic rhinitis due to pollen J30.1 [facility] [address] [address] Sep, [facility] [address] [address] Sep, [facility] [address] [address] Sep, Impulse control disorder F63.9 ; Depress douglas disorder F32.9 and Mild intellectual disabilities F70 [facility] [address] [address] Aug, Impulse control disorder F63.9 ; Depress douglas disorder F32.9 and Mild intellectual disabilities F70 [facility] [address] [address] Aug, [facility] [address] [address] Aug, [facility] [address] [address] Jul, [facility] [address] [address] Jul, Impulse control disorder F63.9 ; Depress douglas disorder F32.9 and Mild intellectual disabilities F70 [facility] [address] [id number] [place] [id number] 10 Jul, 2016 Dental examination Z01.20 [facility] [address] [address] Jul, Impulse control disorder F63.9 ; Depress douglas disorder F32.9 and Mild intellectual disabilities F70 [facility] [address] [address] Jul, [facility] [address] [address] Jun, [facility] [address] [address] Jun, Impulse control disorder F63.9 ; Depress douglas disorder F32.9 and Mild intellectual disabilities F70 [facility] [address] [address] Jun, [facility] [address] [address] Jun, [facility] [address] [address] Jun, Impulse control disorder F63.9 ; Depress douglas disorder F32.9 and Mild intellectual disabilities F70 [facility] [address] [address] May, Impulse control disorder F63.9 ; Depress douglas disorder F32.9 and Mild intellectual disabilities F70 [facility] [address] [address] May, Annual physical exam Z00.00 ; Other fati sarah R53.83 ; Seizures R56.9 ; Mild intellectual disabilities F70 and Impulse control disorder F63.9 [facility] [address] [address] May, [facility] [address] [address] May, Impulse control disorder F63.9 ; Depress douglas disorder F32.9 and Mild intellectual disabilities F70 [facility] [address] [id number] [place] [address] Apr, Encounter for dental examination Z01.20 [facility] [address] [address] Apr, Impulse control disorder F63.9 ; Depress douglas disorder F32.9 and Mild intellectual disabilities F70 [facility] [address] [address] Apr, [facility] [address] [address] Mar, Impulse control disorder F63.9 ; Depress douglas disorder F32.9 and Mild intellectual disabilities F70 [facility] [address] [address] Mar, Impulse control disorder F63.9 ; Depress douglas disorder F32.9 and Mild intellectual disabilities F70 [facility] [address] [address] Mar, [facility] [address] [address] Mar, [facility] [address] [address] Feb, Impulse control disorder F63.9 ; Depress douglas disorder F32.9 and Mild intellectual disabilities F70 [facility] [address] [address] Feb, Impulse control disorder F63.9 ; Depress douglas disorder F32.9 and Mild intellectual disabilities F70 [facility] [address] [address] Feb, [facility] [address] [address] Jan, Annual physical exam Z00.00 ; Impulse co ntrol disorder F63.9 ; Mild intellectual disabilities F70 ; Depressive disorder F32.9 and Seizures R56.9 [facility] [address] [address] Jan, Impulse control disorder F63.9 ; Depress douglas disorder F32.9 and Mild intellectual disabilities F70 [facility] [address] [address] Jan, [facility] [address] [address] Jan, Impulse control disorder F63.9 ; Depress douglas disorder F32.9 and Mild intellectual disabilities F70 [facility] [address] [address] Jan, [facility] [address] [address] Jan, [facility] [address] [address] Dec, Impulse control disorder F63.9 ; Depress douglas disorder F32.9 and Mild intellectual disabilities F70 [facility] [address] [address] Dec, Impulse control disorder F63.9 ; Depress douglas disorder F32.9 and Mild intellectual disabilities F70 [facility] [address] [address] Dec, [facility] [address] [address] Dec, Depressive disorder F32.9 ; Impulse cont rol disorder F63.9 and Mild intellectual disabilities F70 [facility] [address] [address] Nov, [facility] [address] [address] Nov, Depressive disorder F32.9 ; Impulse cont rol disorder F63.9 and Mild intellectual disabilities F70 [facility] [address] [address] Nov, [facility] [address] [address] October, Depressive disorder F32.9 ; Impulse cont rol disorder F63.9 and Mild intellectual disabilities F70 [facility] [address] [address] October, [facility] [address] [address] October, [facility] [address] [address] October, Depressive disorder F32.9 ; Impulse cont rol disorder F63.9 and Mild intellectual disabilities F70 [facility] [address] [address] October, [facility] [address] [address] Sep, [facility] [address] [address] Sep, Depressive disorder F32.9 ; Impulse cont rol disorder F63.9 and Mild intellectual disabilities F70 [facility] [address] [address] Sep, Depressive disorder F32.9 ; Impulse cont rol disorder F63.9 and Mild intellectual disabilities F70 [facility] [address] [address] Sep, [facility] [address] [address] Aug, [facility] [address] [address] Aug, Depressive disorder F32.9 ; Impulse cont rol disorder F63.9 and Mild intellectual disabilities F70 [facility] [address] [address] Aug, Depressive disorder F32.9 ; Impulse cont rol disorder F63.9 and Mild intellectual disabilities F70 [facility] [id number] [place] [id number] Jul, Dental examination Z01.20 [facility] [address] [address] Jul, [facility] [address] [address] Jul, Depressive disorder F32.9 ; Impulse cont rol disorder F63.9 and Mild intellectual disabilities F70 [facility] [address] [address] 05 Jul, 2015 Depressive disorder F32.9 ; Impulse cont rol disorder F63.9 and Mild intellectual disabilities F70 [facility] [id number] [place] [address] 02 Jul, 2015 Depression screening Z13.89 ; 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, 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 and Screening for STD sexually transmitted disease Z11.3 [facility] [id number] [place] [address] Jun, [facility] [address] [address] Jun, Depressive disorder F32.9 ; Impulse cont rol disorder F63.9 and Mild intellectual disabilities F70 [facility] [address] [address] Jun, Depressive disorder, not elsewhere class ified F32.9 ; Mild mental retardation F70 and Impulse control disorder F63.9 [facility] [id number] [place] [address] Jun, Depressive disorder, not elsewhere class ified F32.9 ; Impulse control disorder F63.9 and Mild intellectual disabilities F70 [facility] [id number] [place] [address] Jun, [facility] [address] [id number] [place] [id number] Jun, Dental examination Z01.20 [facility] [id number] [place] [address] May, Depressive disorder, not elsewhere class ified F32.9 ; Impulse control disorder F63.9 and Mild intellectual disabilities F70 [facility] [id number] [place] [address] May, [facility] [address] [address] May, [facility] [address] [address] May, Depressive disorder, not elsewhere class ified F32.9 ; Impulse control disorder F63.9 and Mild intellectual disabilities F70 [facility] [address] [address] May, Depressive disorder, not elsewhere class ified F32.9 ; Impulse control disorder F63.9 and Mild mental retardation F70 [facility] [address] [address] Apr, Depressive disorder, not elsewhere class ified F32.9 ; Impulse control disorder F63.9 and Mild intellectual disabilities F70 [facility] [address] [address] Apr, [facility] [address] [address] Mar, Depressive disorder, not elsewhere class ified F32.9 ; Impulse control disorder F63.9 and Mild intellectual disabilities F70 [facility] [address] [address] Mar, Depressive disorder, not elsewhere class ified F32.9 ; Impulse control disorder F63.9 and Mild intellectual disabilities F70 [facility] [address] [address] Mar, [place] [id number] [address] Mar, Encounter for immunization Z23 [facility] [address] [address] Mar, Depressive disorder, not elsewhere class ified F32.9 ; Impulse control disorder F63.9 and Mild intellectual disabilities F70 [facility] [address] [address] 17 Feb, 2015 Depressive disorder, not elsewhere class ified 311 ; Impulse control disorder, unspecified 312.30 and Mild mental retardation 317 [facility] [facility] [address] [address] 14 Feb, 2015 [facility] [address] [address] 03 Feb, 2015 Depressive disorder, not elsewhere class ified 311 ; Impulse control disorder, unspecified 312.30 and Mild mental retardation 317 [facility] [address] [address] Jan, Depressive disorder, not elsewhere class ified 311 ; Impulse control disorder, unspecified 312.30 and Mild mental retardation 317 [facility] [address] [address] Jan, Depressive disorder, not elsewhere class ified 311 ; Impulse control disorder, unspecified 312.30 and Mild mental retardation 317 [facility] [address] [address] Jan, [facility] [address] [address] Jan, Depressive disorder, not elsewhere class ified 311 ; Impulse control disorder, unspecified 312.30 and Mild mental retardation 317 [place] [address] [address] Dec, Depressive disorder, not elsewhere class ified 311 ; Impulse control disorder, unspecified 312.30 and Mild mental retardation 317 [facility] [address] [address] Dec, [facility] [address] [id number] Dec, Dental examination V72.2 [place] [address] [address] Dec, Heat rash 705.1 ; Seizures 780.39 and Hi gh risk medication use V58.69 [facility] [address] [address] Dec, [place] [address] [address] Dec, Depressive disorder, not elsewhere class ified 311 ; Impulse control disorder, unspecified 312.30 and Mild mental retardation 317 [facility] [address] [address] Nov, Depressive disorder, not elsewhere class ified 311 ; Impulse control disorder, unspecified 312.30 and Mild mental retardation 317 [facility] [address] [place] [address] [id number] [place] [address] 16 Nov, 2014 [facility] [address] [address] Nov, Nicotine addiction 305.1 [facility] [id number] [place] [address] 11 Nov, 2014 [facility] [address] [address] Nov, High risk medication use V58.69 [facility] [address] [address] 10 Nov, 2014 High risk medication use V58.69 [facility] [address] [address] 09 Nov, 2014 Depressive disorder, not elsewhere class ified 311 ; Impulse control disorder, unspecified 312.30 and Mild mental retardation 317 [facility] [address] [address] Nov, Depressive disorder, not elsewhere class ified 311 ; 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 and Impulse control disorder, unspecified 312.30 [facility] [id number] [place] [address] October, Depressive disorder, not elsewhere class ified 311 ; Impulse control disorder, unspecified 312.30 and Mild mental retardation 317 [facility] [address] [address] October, [facility] [address] [address] October, Depressive disorder, not elsewhere class ified 311 ; Impulse control disorder, unspecified 312.30 and Mild mental retardation 317 [facility] [id number] [place] [address] October, [facility] [address] [id number] [place] [id number] October, Dental examination V72.2 [facility] [id number] [place] [address] 30 Sep, 2014 Depressive disorder, not elsewhere class ified 311 ; Impulse control disorder 312.30 and Mild mental retardation 317 [facility] [address] [id number] [place] [address] 14 Sep, 2014 [facility] [address] [id number] [place] [address] 13 Sep, 2014 [facility] [id number] [place] [address] Aug, [facility] [address] [id number] [place] [address] Aug, [facility] [id number] [place] [address] Aug, [facility] [address] [id number] [place] [address] Aug, [facility] [id number] [place] [address] 16 Aug, 2014 [facility] [address] [id number] [place] [address] Aug, [facility] [id number] [place] [address] Aug, [facility] [address] [id number] [place] [address] Aug, [facility] [id number] [place] [address] Jul, [facility] [address] [id number] [place] [address] Jul, 2014 [facility] [id number] [place] [address] Jul, [facility] [address] [id number] [place] [address] Jul, 2014 [facility] [id number] [place] [address] 16 Jul, 2014 [facility] [id number] [place] [address] 16 Jul, 2014 [facility] [place] [facility] [address] [id number] [place] [address] Jul, 2014 [facility] [place] [facility] [address] [id number] [place] [address] Jul, 2014 [facility] [place] [facility] [address] [id number] [place] [address] Jul, 2014 [facility] [place] [facility] [address] [id number] [place] [address] Jul, 2014 [facility] [place] [facility] [address] [id number] [place] [address] Jul, 2014 [facility] [place] [facility] [address] [id number] [place] [address] Jul, 2014 [facility] [place] [facility] [address] [id number] [place] [address] Jul, 2014 [facility] [place] [facility] [address] [id number] [place] [address] Jul, [facility] [place] [facility] [address] [id number] [place] [address] Jun, [facility] [place] [facility] [address] [id number] [place] [address] Jun, [facility] [place] [facility] [address] [id number] [place] [address] Jun, [facility] [place] [facility] [address] [id number] [place] [address] Jun, [facility] [place] [facility] [address] [id number] [place] [address] Jun, [facility] [place] [facility] [address] [id number] [place] [address] Jun, [facility] [place] [facility] [address] [id number] [place] [address] Jun, [facility] [place] [facility] [address] [id number] [place] [address] Jun, [facility] [place] [facility] [address] [id number] [place] [address] Jun, [facility] [place] [facility] [address] [id number] [place] [address] Jun, [facility] [place] [facility] [address] [id number] [place] [address] Jun, [facility] [place] [facility] [address] [id number] [place] [address] Jun, [facility] [place] [facility] [address] [id number] [place] [address] Jun, [facility] [place] [facility] [address] [id number] [place] [address] Jun, [facility] [place] [facility] [address] [id number] [place] [address] Jun, [facility] [place] [facility] [address] [id number] [place] [address] Jun, [facility] [place] [facility] [address] [id number] [place] [address] Jun, [facility] [place] [facility] [address] [id number] [place] [address] Jun, [facility] [place] [facility] [address] [id number] [place] [address] Jun, [facility] [place] [facility] [address] [id number] [place] [address] Jun, [facility] [place] [facility] [address] [id number] [place] [address] May, [facility] [place] [facility] [address] [id number] [place] [address] May, [facility] [place] [facility] [address] [id number] [place] [address] May, [facility] [place] [facility] [address] [id number] [place] [address] May, [facility] [place] [facility] [address] [id number] [place] [address] May, [facility] [place] [facility] [address] [id number] [place] [address] Apr, [facility] [place] [facility] [address] [id number] [place] [address] Apr, [facility] [place] [facility] [address] [id number] [place] [address] Apr, [facility] [place] [facility] [address] [id number] [place] [address] Apr, [facility] [place] [facility] [address] [id number] [place] [address] Apr, [facility] [place] [facility] [address] [id number] [place] [address] Apr, [facility] [place] [facility] [address] [id number] [place] [address] Apr, [facility] [place] [facility] [address] [id number] [place] [address] Apr, [facility] [place] [facility] [address] [id number] [place] [address] Mar, [facility] [place] [facility] [address] [id number] [place] [address] Mar, [facility] [place] [facility] [address] [id number] [place] [address] Mar, [facility] [place] [facility] [address] [id number] [place] [address] Mar, [facility] [place] [facility] [address] [id number] [place] [address] Mar, [facility] [place] [facility] [id number] [place] [address] Mar, [facility] [place] [facility] [address] [id number] [place] [address] Mar, [facility] [place] [facility] [address] [id number] [place] [address] Mar, [facility] [place] [facility] [address] [facility] [place] [id number] [place] [address] 16 Mar, 2013 [facility] [place] [facility] [address] [id number] [place] [address] 16 Mar, 2013 [facility] [place] [facility] [address] [id number] [place] [address] 16 Mar, 2013 [facility] [place] [facility] [address] [id number] [place] [address] 16 Mar, 2013 [facility] [place] [facility] [address] [id number] [place] [address] 15 Mar, 2013 [facility] [place] [facility] [address] [id number] [place] [address] 15 Mar, 2014 [facility] [place] [facility] [address] [id number] [place] [address] Mar, 2013 [facility] [place] [facility] [address] [id number] [place] [address] Mar, 2013 [facility] [place] [facility] [address] [id number] [place] [address] Mar, 2013 [facility] [place] [facility] [address] [id number] [place] [address] Mar, 2013 [facility] [place] [facility] [address] [id number] [place] [address] Mar, 2013 [facility] [place] [facility] [address] [id number] [place] [address] Mar, 2013 [facility] [place] [facility] [address] [id number] [place] [address] 24 Feb, 2013 [facility] [place] [facility] [address] [id number] [place] [address] 24 Sep, 2013 [facility] [place] [facility] [address] [id number] [place] [address] 19 Feb, 2013 [facility] [place] [facility] [address] [id number] [place] [address] 19 Sep, 2013 [facility] [place] [facility] [address] [id number] [place] [address] Feb, 2013 [facility] [place] [facility] [address] [id number] [facility] [place] [address] Feb, [facility] [place] [facility] [address] [facility] [place] [id number] [facility] [place] [address] Feb, [facility] [place] [facility] [address] [facility] [place] [id number] [facility] [place] [address] Feb, [facility] [place] [facility] [address] [id number] [facility] [place] [address] Jan, [facility] [place] [facility] [address] [facility] [place] [id number] [facility] [place] [address] Jan, [facility] [place] [facility] [address] [facility] [place] [id number] [facility] [place] [address] Jan, [facility] [place] [facility] [address] [id number] [place] [address] Jan, [facility] [place] [facility] [address] [id number] [facility] [place] [address] Dec, [facility] [place] [facility] [address] [facility] [place] [id number] [place] [address] Dec, [facility] [place] [facility] [address] [facility] [place] [id number] [place] [address] Dec, [facility] [place] [facility] [address] [facility] [place] [id number] [place] [address] Dec, [facility] [place] [facility] [address] [id number] [place] [address] Dec, [facility] [place] [facility] [address] [facility] [place] [id number] [place] [address] Dec, [facility] [place] [facility] [address] [id number] [place] [address] Dec, [facility] [place] [facility] [address] [facility] [place] [id number] [place] [address] Dec, [facility] [place] [facility] [address] [facility] [place] [id number] [place] [address] Dec, [facility] [place] [facility] [address] [id number] [place] [address] Dec, [facility] [place] [facility] [address] [id number] [place] [address] Nov, [facility] [place] [facility] [address] [facility] [place] [id number] [place] [address] Nov, [facility] [place] [facility] [address] [id number] [place] [address] Nov, [facility] [place] [facility] [address] [facility] [place] [id number] [place] [address] Nov, [facility] [place] [facility] [address] [facility] [place] [id number] [place] [address] Nov, [facility] [place] [facility] [address] [id number] [place] [address] Nov, [facility] [place] [facility] [address] [id number] [place] [address] Nov, [facility] [place] [facility] [address] [id number] [place] [address] Nov, [facility] [place] [facility] [address] [id number] [place] [address] Nov, [facility] [place] [facility] [address] [id number] [place] [address] Nov, [facility] [place] [facility] [address] [id number] [place] [address] Nov, [facility] [place] [facility] [address] [id number] [place] [address] Nov, [facility] [place] [facility] [address] [facility] [place] [id number] [place] [address] October, [facility] [place] [facility] [address] [id number] [place] [address] October, [facility] [place] [facility] [address] [id number] [place] [address] October, [facility] [place] [facility] [address] [id number] [place] [address] October, [facility] [place] [facility] [address] [id number] [place] [address] October, [facility] [place] [facility] [address] [id number] [place] [address] October, [facility] [place] [facility] [address] [id number] [place] [address] October, [facility] [place] [facility] [address] [id number] [place] [address] October, [facility] [place] [facility] [address] [id number] [place] [address] October, [facility] [place] [facility] [address] [id number] [place] [address] October, [facility] [place] [facility] [address] [id number] [place] [address] Sep, [facility] [place] [facility] [address] [id number] [place] [address] Sep, [facility] [place] [facility] [address] [id number] [place] [address] Sep, [facility] [place] [facility] [address] [id number] [place] [address] Sep, [facility] [place] [facility] [address] [id number] [place] [address] Sep, [facility] [place] [facility] [address] [id number] [place] [address] Sep, [facility] [place] [facility] [address] [id number] [place] [address] Sep, [facility] [place] [facility] [address] [id number] [place] [address] Sep, [facility] [place] [facility] [address] [id number] [place] [address] Aug, [facility] [place] [facility] [address] [id number] [place] [address] Aug, [facility] [place] [facility] [address] [id number] [place] [address] Aug, [facility] [place] [facility] [address] [id number] [place] [address] Aug, [facility] [place] [facility] [address] [id number] [place] [address] Aug, [facility] [place] [facility] [address] [id number] [place] [address] Aug, [facility] [place] [facility] [address] [id number] [place] [address] Aug, [facility] [place] [facility] [address] [facility] [place] [id number] [place] [address] Aug, [facility] [place] [facility] [address] [id number] [place] [address] Jul, [facility] [place] [facility] [address] [id number] [place] [address] Jul, [facility] [place] [facility] [address] [id number] [place] [address] Jul, [facility] [place] [facility] [address] [id number] [place] [address] Jul, [facility] [place] [facility] [address] [id number] [place] [address] Jul, [facility] [place] [facility] [address] [id number] [place] [address] Jul, [facility] [place] [facility] [address] [id number] [place] [address] Jul, [facility] [place] [facility] [address] [id number] [place] [address] Jul, [facility] [place] [facility] [address] [id number] [place] [address] Jun, [facility] [place] [facility] [address] [id number] [place] [address] Jun, [facility] [place] [facility] [address] [id number] [place] [address] Jun, [facility] [place] [facility] [address] [id number] [place] [address] Jun, [facility] [place] [facility] [address] [id number] [place] [address] Jun, [facility] [place] [facility] [address] [id number] [place] [address] Jun, [facility] [place] [facility] [address] [id number] [place] [address] Jun, [facility] [place] [facility] [address] [id number] [place] [address] Jun, [facility] [place] [facility] [address] [id number] [place] [address] May, [facility] [place] [facility] [address] [id number] [place] [address] May, [facility] [place] [facility] [address] [id number] [place] [address] May, [facility] [place] [facility] [address] [id number] [place] [address] May, [facility] [place] [facility] [address] [id number] [place] [address] May, [facility] [place] [facility] [address] [id number] [place] [address] May, [facility] [address] [id number] [place] [address] Apr, [facility] [address] [id number] [place] [address] Apr, [facility] [address] [id number] [place] [address] Mar, [facility] [id number] [place] [address] Mar, [facility] [address] [id number] [place] [address] Mar, [facility] [address] [id number] [place] [address] Mar, [facility] [address] [id number] [facility] [place] [address] Mar, [facility] [address] [facility] [place] [id number] [facility] [place] [address] Feb, [facility] [address] [id number] [facility] [place] [address] Jan, [facility] [address] [id number] [facility] [place] [address] Jan, [facility] [address] [facility] [place] [id number] [facility] [place] [address] Jan, [facility] [address] [id number] [facility] [place] [address] Jan, [facility] [address] [id number] [place] [address] Jan, [facility] [address] [id number] [place] [address] Dec, [facility] [address] [facility] [place] [id number] [facility] [place] [address] Dec, [facility] [address] [id number] [place] [address] Dec, [facility] [address] [id number] [place] [address] Dec, [facility] [address] [id number] [place] [address] Nov, [facility] [address] [facility] [place] [id number] [place] [address] Nov, [facility] [address] [id number] [place] [address] Nov, [facility] [address] [id number] [place] [address] October, [facility] [address] [id number] [place] [address] October, [facility] [address] [id number] [place] [address] October, [facility] [address] [id number] [place] [address] Sep, [facility] [address] [id number] [place] [address] Sep, [facility] [address] [id number] [place] [address] Aug, [facility] [address] [id number] [place] [address] Aug, [facility] [address] [id number] [place] [address] Jul, [facility] [address] [id number] [place] [address] Jul, [facility] [address] [id number] [place] [address] Jul, [facility] [address] [id number] [place] [address] Jul, [facility] [address] [id number] [place] [address] Jul, [facility] [address] [id number] [place] [address] Jun, [facility] [address] [id number] [place] [address] May, [facility] [address] [id number] [place] [address] 31 May, 2012 [facility] [address] [id number] [place] [address] 14 May, 2012 [facility] [address] [id number] [place] [address] 14 May, 2012 [facility] [address] [id number] [place] [address] 13 May, 2012 [facility] [address] [id number] [place] [address] May, [facility] [address] [id number] [place] [address] May, [facility] [address] [id number] [place] [address] May, [facility] [address] [id number] [place] [address] Apr, [facility] [address] [id number] [place] [address] Apr, [facility] [address] [id number] [place] [address] Apr, [facility] [address] [id number] [place] [address] Apr, [facility] [address] [id number] [place] [address] Mar, [facility] [id number] [place] [address] Mar, [facility] [address] [id number] [place] [address] Mar, [facility] [address] [id number] [place] [address] Feb, [facility] [address] [id number] [place] [address] Feb, [facility] [address] [id number] [place] [address] Jan, [facility] [address] [id number] [place] [address] Jan, [facility] [address] [id number] [place] [address] Jan, [facility] [address] [id number] [place] [address] Dec, [facility] [address] [id number] [place] [address] Dec, [facility] [address] [id number] [place] [address] Dec, [facility] [address] [id number] [place] [address] Dec[facility] [address] [id number] [place] [address] Nov, [facility] [address] [id number] [place] [address] Nov, [facility] [address] [id number] [place] [address] Nov, [facility] [address] [id number] [place] [address] October, [facility] [address] [id number] [place] [address] October, [facility] [address] [id number] [place] [address] October, [facility] [address] [id number] [place] [address] Sep, [facility] [address] [id number] [place] [address] Sep, [facility] [address] [id number] [place] [address] Sep, [facility] [address] [id number] [place] [address] Aug, [facility] [address] [id number] [place] [address] Aug, [facility] [address] [id number] [place] [address] Aug, [facility] [address] [id number] [place] [address] Jul, [facility] [address] [id number] [place] [address] Jun, [facility] [address] [id number] [place] [address] Jun, [facility] [address] [id number] [place] [address] May, [facility] [address] [id number] [place] [address] May, [facility] [address] [id number] [place] [address] May, [facility] [address] [id number] [place] [address] May, [facility] [address] [id number] [place] [address] Apr, [facility] [address] [id number] [place] [address] Apr, [facility] [address] [id number] [place] [address] Apr, [facility] [address] [id number] [place] [address] Apr, [facility] [address] [id number] [place] [address] Apr, [facility] [address] [id number] [place] [address] Mar, [facility] [address] [id number] [place] [address] Mar, [facility] [address] [id number] [place] [address] Jan, [facility] [address] [id number] [place] [address] May, [facility] [address] [id number] [place] [address] Apr, [facility] [address] [id number] [place] [address] Mar, [facility] [address] [id number] [place] [address] Jun, [facility] [address] [id number] [place] [address] Apr, [facility] [address] [facility] [place] [id number] [place] [address] Apr, IMMUNIZATIONS No Known Immunizations SOCIAL HISTORY Never Assessed REASON FOR VISIT PLAN OF CARE VITAL SIGNS MEDICATIONS Unknown Medications RESULTS No Results PROCEDURES No Known procedures INSTRUCTIONS MEDICATIONS ADMINISTERED No Known Medications MEDICAL (GENERAL) HISTORY Type Description Date Medical History seizures Surgical History No Surgical history information
--- OUTSIDE RECORDS SUMMARY | 2019-09-07 02:32 | XMS REPORT ---
Author Author Reymundo BERKOWITZ Organization [facility] Address [address] [place] [address] Care Team Providers Care Building Carpenter Name Role Phone WOOYANNICKA Unavailable PROBLEMS Type Condition ICD9-CM Code [id number] Code Onset Dates Condition S tatus SNOMED Code Problem Alcohol abuse F10.10 Active 309515 05 Problem Relationship dysfunction Z63.9 Activ e [id number] Problem Impulse control disorder F63.9 Activ e [id number] Problem Depressive disorder F32.9 Active 86778323 Problem Mild intellectual disabilities F70 Active 27581431 Problem Seasonal allergic rhinitis due to pollen J30.1 Active [id number] ALLERGIES No Information ENCOUNTERS Encounter Location Date Diagnosis [place] [id number] [address] Aug, [place] [address] [address] Jul, [place] [address] [address] Jul, Depressive disorder F32.9 [place] [address] [address] Jul, [facility] [address] [address] May, [place] [address] [address] Apr, [place] [address] [address] Apr, Depressive disorder F32.9 ; Impulse cont rol disorder F63.9 and Mild intellectual disabilities F70 [place] [address] [address] Apr, [facility] [address] [place] [id number] [place] [address] Apr, [facility] [address] [address] Apr, [facility] [address] [place] [address] [id number] [place] [address] Apr, Impulse control disorder F63.9 ; Depress douglas disorder F32.9 and Mild intellectual disabilities F70 [address] [place] [address] Mar, [facility] [address] [address] Mar, [facility] [address] [address] Mar, Encounter for immunization Z23 [facility] [address] [address] Dec, [facility] [address] [address] Dec, Seasonal allergic rhinitis due to pollen J30.1 [facility] [address] [address] October, Depressive disorder F32.9 ; Impulse cont rol disorder F63.9 and Mild intellectual disabilities F70 [facility] [address] [address] Jun, Impulse control disorder F63.9 ; Mild in tellectual disabilities F70 ; Relationship dysfunction Z63.9 and Depressive disorder F32.9 [facility] [address] [place] [id number] [place] [address] Jun, [facility] [address] [address] May, [facility] [address] [address] May, [facility] [address] [address] May, Encounter for immunization Z23 [facility] [address] [place] [address] [id number] [place] [address] Apr, [facility] [address] [place] [id number] [place] [address] Apr, [facility] [address] [id number] [place] [address] Mar, [facility] [address] [address] Mar, [facility] [address] [place] [id number] [place] [address] 26 Feb, 2018 Annual physical exam Z00.00 [place] [address] [address] 25 Feb, 2018 Annual physical exam Z00.00 ; Mild intel lectual disabilities F70 and Encounter for immunization Z23 [facility] [address] [place] [id number] [place] [address] Feb, [facility] [address] [place] [address] [id number] [place] [address] Jan, [facility] [address] [address] Jan, Impulse control disorder F63.9 ; Mild in tellectual disabilities F70 and Depressive disorder F32.9 [facility] [address] [place] [id number] [place] [address] Nov, [facility] [address] [place] [id number] [place] [address] Nov, [facility] [address] [address] Nov, [facility] [address] [address] Nov, [facility] [address] [address] Nov, [facility] [address] [address] Nov, Impulse control disorder F63.9 ; Depress douglas disorder F32.9 and Mild intellectual disabilities F70 [facility] [address] [address] October, [facility] [address] [address] October, Impulse control disorder F63.9 ; Depress douglas disorder F32.9 and Mild intellectual disabilities F70 [facility] [address] [address] Sep, [facility] [address] [address] Sep, Impulse control disorder F63.9 ; Depress douglas disorder F32.9 and Mild intellectual disabilities F70 [facility] [address] [address] Sep, Impulse control disorder F63.9 ; Depress douglas disorder F32.9 and Mild intellectual disabilities F70 [facility] [address] [address] Aug, [facility] [address] [address] Aug, Impulse control disorder F63.9 ; Depress douglas disorder F32.9 and Mild intellectual disabilities F70 [facility] [address] [place] [id number] [place] [id number] Aug, Dental examination Z01.20 [facility] [address] [address] Aug, [facility] [address] [address] Aug, Impulse control disorder F63.9 ; Depress douglas disorder F32.9 and Mild intellectual disabilities F70 [facility] [address] [address] Jul, Impulse control disorder F63.9 ; Depress douglas disorder F32.9 and Mild intellectual disabilities F70 [facility] [address] [facility] [place] [id number] 12 Jul, 2017 Dental examination Z01.20 [facility] [address] [address] 02 Jul, 2017 [facility] [address] [address] Jun, Impulse control disorder F63.9 ; Depress douglas disorder F32.9 and Mild intellectual disabilities F70 [facility] [address] [address] 08 Jun, 2017 Impulse control disorder F63.9 ; Depress douglas disorder F32.9 and Mild intellectual disabilities F70 [facility] [address] [address] 08 Jun, 2017 [facility] [address] [address] May, [facility] [address] [address] 05 May, 2017 Impulse control disorder F63.9 ; Depress douglas disorder F32.9 and Mild intellectual disabilities F70 [facility] [address] [address] Apr, Impulse control disorder F63.9 ; Depress douglas disorder F32.9 and Mild intellectual disabilities F70 [facility] [address] [address] Apr, Seizures R56.9 [facility] [address] [address] Apr, [facility] [address] [address] Apr, Seizures R56.9 ; Tobacco abuse Z72.0 ; A lcohol abuse F10.10 and Encounter for immunization Z23 [facility] [address] [address] 14 Apr, 2017 Impulse control disorder F63.9 ; Depress douglas disorder F32.9 and Mild intellectual disabilities F70 [facility] [address] [address] Mar, Impulse control disorder F63.9 ; Depress douglas disorder F32.9 and Mild intellectual disabilities F70 [facility] [address] [address] Mar, [facility] [address] [address] Mar, Impulse control disorder F63.9 ; Depress douglas disorder F32.9 and Mild intellectual disabilities F70 [facility] [address] [address] Mar, [facility] [address] [address] Feb, Impulse control disorder F63.9 ; Depress douglas disorder F32.9 and Mild intellectual disabilities F70 [facility] [address] [address] Feb, [facility] [address] [address] Feb, Impulse control disorder F63.9 ; Depress douglas disorder F32.9 and Mild intellectual disabilities F70 [facility] [address] [address] Jan, Annual physical exam Z00.00 ; Right hand pain M79.641 ; Impulse control disorder F63.9 ; Mild intellectual disabilities F70 and Depressive disorder F32.9 [facility] [address] [address] Jan, Impulse control disorder F63.9 ; Depress douglas disorder F32.9 and Mild intellectual disabilities F70 [facility] [address] [address] Jan, [facility] [address] [address] Jan, Impulse control disorder F63.9 ; Depress douglas disorder F32.9 and Mild intellectual disabilities F70 [facility] [address] [facility] [place] [address] Jan, Impulse control disorder F63.9 ; Depress douglas disorder F32.9 and Mild intellectual disabilities F70 [facility] [address] [place] [id number] [place] [address] Dec, [facility] [address] [address] Dec, Impulse control disorder F63.9 ; Depress douglas disorder F32.9 and Mild intellectual disabilities F70 [facility] [address] [address] Nov, Impulse control disorder F63.9 ; Depress douglas disorder F32.9 and Mild intellectual disabilities F70 [facility] [address] [place] [id number] [place] [address] Nov, [facility] [address] [address] Nov, [facility] [address] [address] Nov, [facility] [address] [address] October, Impulse control disorder F63.9 ; Depress douglas disorder F32.9 and Mild intellectual disabilities F70 [facility] [address] [address] October, [facility] [address] [address] October, Impulse control disorder F63.9 ; Depress douglas disorder F32.9 and Mild intellectual disabilities F70 [facility] [address] [place] [id number] [place] [address] Sep, [facility] [address] [address] Sep, Impulse control disorder F63.9 ; Depress douglas disorder F32.9 and Mild intellectual disabilities F70 [facility] [address] [place] [id number] [place] [address] Sep, Seasonal allergic rhinitis due to pollen J30.1 [facility] [address] [address] Sep, [facility] [address] [address] Sep, [facility] [address] [address] Sep, Impulse control disorder F63.9 ; Depress douglas disorder F32.9 and Mild intellectual disabilities F70 [facility] [address] [address] Aug, Impulse control disorder F63.9 ; Depress douglas disorder F32.9 and Mild intellectual disabilities F70 [facility] [address] [address] Aug, [facility] [address] [address] Aug, [facility] [address] [address] Jul, [facility] [address] [address] Jul, Impulse control disorder F63.9 ; Depress douglas disorder F32.9 and Mild intellectual disabilities F70 [facility] [address] [place] [id number] [place] [id number] 10 Jul, 2016 Dental examination Z01.20 [facility] [address] [address] Jul, Impulse control disorder F63.9 ; Depress douglas disorder F32.9 and Mild intellectual disabilities F70 [facility] [address] [address] Jul, [facility] [address] [address] Jun, [facility] [address] [address] Jun, Impulse control disorder F63.9 ; Depress douglas disorder F32.9 and Mild intellectual disabilities F70 [facility] [address] [address] Jun, [facility] [address] [address] Jun, [facility] [address] [address] Jun, Impulse control disorder F63.9 ; Depress douglas disorder F32.9 and Mild intellectual disabilities F70 [facility] [address] [address] May, Impulse control disorder F63.9 ; Depress douglas disorder F32.9 and Mild intellectual disabilities F70 [facility] [address] [address] May, Annual physical exam Z00.00 ; Other fati sarah R53.83 ; Seizures R56.9 ; Mild intellectual disabilities F70 and Impulse control disorder F63.9 [facility] [address] [address] May, [facility] [address] [address] May, Impulse control disorder F63.9 ; Depress douglas disorder F32.9 and Mild intellectual disabilities F70 [facility] [address] [facility] [place] [id number] Apr, Encounter for dental examination Z01.20 [facility] [address] [address] Apr, Impulse control disorder F63.9 ; Depress douglas disorder F32.9 and Mild intellectual disabilities F70 [facility] [address] [address] Apr, [facility] [address] [address] Mar, Impulse control disorder F63.9 ; Depress douglas disorder F32.9 and Mild intellectual disabilities F70 [facility] [address] [address] Mar, Impulse control disorder F63.9 ; Depress douglas disorder F32.9 and Mild intellectual disabilities F70 [facility] [address] [address] Mar, [facility] [address] [address] Mar, [facility] [address] [address] Feb, Impulse control disorder F63.9 ; Depress douglas disorder F32.9 and Mild intellectual disabilities F70 [facility] [address] [address] Feb, Impulse control disorder F63.9 ; Depress douglas disorder F32.9 and Mild intellectual disabilities F70 [facility] [address] [address] Feb, [facility] [address] [address] Jan, Annual physical exam Z00.00 ; Impulse co ntrol disorder F63.9 ; Mild intellectual disabilities F70 ; Depressive disorder F32.9 and Seizures R56.9 [facility] [address] [address] Jan, Impulse control disorder F63.9 ; Depress douglas disorder F32.9 and Mild intellectual disabilities F70 [facility] [address] [address] Jan, [facility] [address] [address] Jan, Impulse control disorder F63.9 ; Depress douglas disorder F32.9 and Mild intellectual disabilities F70 [facility] [address] [address] Jan, [facility] [address] [id number] [place] [address] Jan, [facility] [address] [id number] [place] [address] Dec, Impulse control disorder F63.9 ; Depress douglas disorder F32.9 and Mild intellectual disabilities F70 [facility] [address] [address] Dec, Impulse control disorder F63.9 ; Depress douglas disorder F32.9 and Mild intellectual disabilities F70 [facility] [address] [address] Dec, [facility] [address] [place] [id number] [place] [address] Dec, Depressive disorder F32.9 ; Impulse cont rol disorder F63.9 and Mild intellectual disabilities F70 [facility] [address] [address] Nov, [facility] [address] [address] Nov, Depressive disorder F32.9 ; Impulse cont rol disorder F63.9 and Mild intellectual disabilities F70 [facility] [address] [address] Nov, [facility] [address] [address] October, Depressive disorder F32.9 ; Impulse cont rol disorder F63.9 and Mild intellectual disabilities F70 [facility] [address] [place] [id number] [place] [address] October, [facility] [address] [address] October, [facility] [address] [place] [id number] [place] [address] October, Depressive disorder F32.9 ; Impulse cont rol disorder F63.9 and Mild intellectual disabilities F70 [facility] [address] [address] October, [facility] [address] [address] Sep, [facility] [address] [address] Sep, Depressive disorder F32.9 ; Impulse cont rol disorder F63.9 and Mild intellectual disabilities F70 [facility] [address] [address] Sep, Depressive disorder F32.9 ; Impulse cont rol disorder F63.9 and Mild intellectual disabilities F70 [facility] [address] [address] Sep, [facility] [address] [address] Aug, [facility] [address] [address] Aug, Depressive disorder F32.9 ; Impulse cont rol disorder F63.9 and Mild intellectual disabilities F70 [facility] [address] [address] Aug, Depressive disorder F32.9 ; Impulse cont rol disorder F63.9 and Mild intellectual disabilities F70 [facility] [address] [facility] [place] [id number] Jul, Dental examination Z01.20 [facility] [address] [address] Jul, [facility] [address] [address] Jul, Depressive disorder F32.9 ; Impulse cont rol disorder F63.9 and Mild intellectual disabilities F70 [facility] [address] [address] 05 Jul, 2015 Depressive disorder F32.9 ; Impulse cont rol disorder F63.9 and Mild intellectual disabilities F70 [facility] [address] [place] [id number] [place] [address] 02 Jul, 2015 Depression screening Z13.89 ; 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, 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 and Screening for STD sexually transmitted disease Z11.3 [facility] [address] [place] [address] [id number] [place] [address] Jun, [facility] [address] [address] Jun, Depressive disorder F32.9 ; Impulse cont rol disorder F63.9 and Mild intellectual disabilities F70 [facility] [address] [address] Jun, Depressive disorder, not elsewhere class ified F32.9 ; Mild mental retardation F70 and Impulse control disorder F63.9 [place] [address] [address] Jun, Depressive disorder, not elsewhere class ified F32.9 ; Impulse control disorder F63.9 and Mild intellectual disabilities F70 [facility] [address] [place] [address] [id number] [place] [address] Jun, [facility] [address] [id number] [place] [id number] Jun, Dental examination Z01.20 [facility] [address] [place] [address] [address] [place] [address] May, Depressive disorder, not elsewhere class ified F32.9 ; Impulse control disorder F63.9 and Mild intellectual disabilities F70 [facility] [address] [place] [address] [address] [place] [address] May, [facility] [address] [address] May, [facility] [address] [place] [id number] May, Depressive disorder, not elsewhere class ified F32.9 ; Impulse control disorder F63.9 and Mild intellectual disabilities F70 [facility] [address] [address] May, Depressive disorder, not elsewhere class ified F32.9 ; Impulse control disorder F63.9 and Mild mental retardation F70 [facility] [address] [address] Apr, Depressive disorder, not elsewhere class ified F32.9 ; Impulse control disorder F63.9 and Mild intellectual disabilities F70 [facility] [address] [address] Apr, [facility] [address] [address] Mar, Depressive disorder, not elsewhere class ified F32.9 ; Impulse control disorder F63.9 and Mild intellectual disabilities F70 [facility] [address] [address] Mar, Depressive disorder, not elsewhere class ified F32.9 ; Impulse control disorder F63.9 and Mild intellectual disabilities F70 [facility] [address] [address] Mar, [facility] [address] [address] Mar, Encounter for immunization Z23 [facility] [address] [address] Mar, Depressive disorder, not elsewhere class ified F32.9 ; Impulse control disorder F63.9 and Mild intellectual disabilities F70 [facility] [address] [address] 17 Feb, 2015 Depressive disorder, not elsewhere class ified 311 ; Impulse control disorder, unspecified 312.30 and Mild mental retardation 317 [facility] [address] [address] 14 Feb, 2015 [facility] [address] [address] 03 Feb, 2015 Depressive disorder, not elsewhere class ified 311 ; Impulse control disorder, unspecified 312.30 and Mild mental retardation 317 [facility] [address] [address] [id number] [place] [address] Jan, Depressive disorder, not elsewhere class ified 311 ; Impulse control disorder, unspecified 312.30 and Mild mental retardation 317 [facility] [address] [address] Jan, Depressive disorder, not elsewhere class ified 311 ; Impulse control disorder, unspecified 312.30 and Mild mental retardation 317 [facility] [address] [address] Jan, [facility] [address] [address] Jan, Depressive disorder, not elsewhere class ified 311 ; Impulse control disorder, unspecified 312.30 and Mild mental retardation 317 [facility] [address] [address] Dec, Depressive disorder, not elsewhere class ified 311 ; Impulse control disorder, unspecified 312.30 and Mild mental retardation 317 [facility] [address] [address] Dec, [facility] [id number] [place] [id number] Dec, Dental examination V72.2 [place] [address] [address] Dec, Heat rash 705.1 ; Seizures 780.39 and Hi gh risk medication use V58.69 [facility] [address] [address] Dec, [facility] [address] [address] Dec, Depressive disorder, not elsewhere class ified 311 ; Impulse control disorder, unspecified 312.30 and Mild mental retardation 317 [facility] [address] [address] Nov, Depressive disorder, not elsewhere class ified 311 ; Impulse control disorder, unspecified 312.30 and Mild mental retardation 317 [facility] [id number] [place] [address] 16 Nov, 2014 [facility] [address] [place] [address] Nov, Nicotine addiction 305.1 [facility] [id number] [place] [address] 11 Nov, 2014 [facility] [address] [address] Nov, High risk medication use V58.69 [facility] [address] [address] 10 Nov, 2014 High risk medication use V58.69 [facility] [address] [address] 09 Nov, 2014 Depressive disorder, not elsewhere class ified 311 ; Impulse control disorder, unspecified 312.30 and Mild mental retardation 317 [facility] [address] [place] [address] Nov, Depressive disorder, not elsewhere class ified 311 ; 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 and Impulse control disorder, unspecified 312.30 [facility] [address] [place] [address] October, Depressive disorder, not elsewhere class ified 311 ; Impulse control disorder, unspecified 312.30 and Mild mental retardation 317 [facility] [id number] [place] [address] October, [facility] [address] [place] [address] October, Depressive disorder, not elsewhere class ified 311 ; Impulse control disorder, unspecified 312.30 and Mild mental retardation 317 [facility] [address] [place] [address] October, [facility] [address] [facility] [place] [id number] October, Dental examination V72.2 [facility] [id number] [place] [address] 30 Sep, 2014 Depressive disorder, not elsewhere class ified 311 ; Impulse control disorder 312.30 and Mild mental retardation [address] [facility] [id number] [place] [address] 14 Sep, 2014 [facility] [address] [id number] [place] [address] 13 Sep, 2014 [facility] [id number] [place] [address] Aug, [facility] [id number] [place] [address] Aug, [facility] [id number] [place] [address] Aug, [facility] [id number] [place] [address] Aug, [facility] [id number] [place] [address] Aug, [facility] [id number] [place] [address] Aug, [facility] [id number] [place] [address] Aug, [facility] [id number] [place] [address] Aug, [facility] [id number] [place] [address] Jul, [facility] [id number] [place] [address] Jul, [facility] [id number] [place] [address] Jul, [facility] [id number] [place] [address] Jul, [facility] [id number] [place] [address] 16 Jul, 2014 [facility] [id number] [place] [address] 16 Jul, 2014 [facility] [place] [facility] [address] [id number] [place] [address] Jul, 2014 [facility] [place] [facility] [address] [id number] [place] [address] Jul, 2014 [facility] [place] [facility] [address] [id number] [place] [address] Jul, 2014 [facility] [place] [facility] [address] [id number] [place] [address] Jul, 2014 [facility] [place] [facility] [address] [id number] [place] [address] Jul, 2014 [facility] [place] [facility] [address] [id number] [place] [address] Jul, 2014 [facility] [place] [facility] [address] [id number] [place] [address] Jul, 2014 [facility] [place] [facility] [address] [id number] [place] [address] Jul, [facility] [place] [facility] [address] [id number] [place] [address] Jun, [facility] [place] [facility] [address] [id number] [place] [address] Jun, [facility] [place] [facility] [address] [id number] [place] [address] Jun, [facility] [place] [facility] [address] [id number] [place] [address] Jun, [facility] [place] [facility] [address] [id number] [place] [address] Jun, [facility] [place] [facility] [id number] [place] [address] Jun, [facility] [place] [facility] [address] [id number] [place] [address] Jun, [facility] [place] [facility] [address] [id number] [place] [address] Jun, [facility] [place] [facility] [address] [id number] [place] [address] Jun, [facility] [place] [facility] [address] [id number] [place] [address] Jun, [facility] [place] [facility] [address] [id number] [place] [address] Jun, [facility] [place] [facility] [address] [id number] [place] [address] Jun, [facility] [place] [facility] [address] [id number] [place] [address] 08 Jun, 2014 [facility] [place] [facility] [address] [id number] [place] [address] Jun, [facility] [place] [facility] [address] [id number] [place] [address] 08 Jun, 2014 [facility] [place] [facility] [address] [id number] [place] [address] Jun, [facility] [place] [facility] [address] [id number] [place] [address] 08 Jun, 2014 [facility] [place] [facility] [address] [id number] [place] [address] Jun, [facility] [place] [facility] [address] [id number] [place] [address] 08 Jun, 2014 [facility] [place] [facility] [address] [id number] [place] [address] Jun, [facility] [place] [facility] [address] [id number] [place] [address] May, [facility] [place] [facility] [address] [id number] [place] [address] May, [facility] [place] [facility] [address] [id number] [place] [address] May, [facility] [place] [facility] [address] [id number] [place] [address] May, [facility] [place] [facility] [address] [id number] [place] [address] May, [facility] [place] [facility] [address] [id number] [place] [address] Apr, [facility] [place] [facility] [address] [id number] [place] [address] Apr, [facility] [place] [facility] [address] [id number] [place] [address] Apr, [facility] [place] [facility] [address] [id number] [place] [address] Apr, [facility] [place] [facility] [address] [id number] [place] [address] Apr, [facility] [place] [facility] [address] [id number] [place] [address] Apr, [facility] [place] [facility] [address] [id number] [place] [address] Apr, [facility] [place] [facility] [address] [id number] [place] [address] Apr, [facility] [place] [facility] [address] [id number] [place] [address] Mar, [facility] [place] [facility] [address] [id number] [place] [address] Mar, [facility] [place] [facility] [address] [id number] [place] [address] Mar, [facility] [place] [facility] [address] [id number] [place] [address] Mar, [facility] [place] [facility] [address] [id number] [place] [address] Mar, [facility] [place] [facility] [address] [id number] [place] [address] Mar, [facility] [place] [facility] [address] [id number] [place] [address] Mar, [facility] [place] [facility] [address] [id number] [place] [address] Mar, [facility] [place] [facility] [address] [id number] [place] [address] 16 Mar, 2013 [facility] [place] [facility] [address] [id number] [place] [address] 16 Mar, 2013 [facility] [place] [facility] [address] [id number] [place] [address] 16 Mar, 2013 [facility] [place] [facility] [address] [id number] [place] [address] 16 Mar, 2013 [facility] [place] [facility] [address] [id number] [place] [address] 15 Mar, 2013 [facility] [place] [facility] [address] [id number] [place] [address] 15 Mar, 2013 [facility] [place] [facility] [address] [id number] [place] [address] Mar, 2013 [facility] [place] [facility] [address] [id number] [place] [address] Mar, 2013 [facility] [place] [facility] [address] [id number] [place] [address] Mar, 2013 [facility] [place] [facility] [address] [id number] [place] [address] Mar, 2013 [facility] [place] [facility] [address] [id number] [place] [address] Mar, 2013 [facility] [place] [facility] [address] [id number] [place] [address] Mar, 2013 [facility] [place] [facility] [address] [id number] [place] [address] 24 Feb, 2013 [facility] [place] [facility] [address] [id number] [place] [address] 24 Sep, 2013 [facility] [place] [facility] [address] [id number] [place] [address] 19 Sep, 2013 [facility] [place] [facility] [address] [id number] [place] [address] 19 Sep, 2013 [facility] [place] [facility] [address] [id number] [place] [address] 11 Sep, 2013 [facility] [place] [facility] [address] [id number] [facility] [place] [address] Feb, 2013 [facility] [place] [facility] [address] [facility] [id number] [place] [address] Feb, [facility] [place] [facility] [address] [facility] [id number] [facility] [place] [address] Feb, [facility] [place] [facility] [address] [id number] [place] [address] Jan, [facility] [place] [facility] [address] [facility] [id number] [place] [address] Jan, [facility] [place] [facility] [address] [id number] [place] [address] Jan, [facility] [place] [facility] [address] [facility] [id number] [facility] [place] [address] Jan, [facility] [place] [facility] [address] [id number] [facility] [place] [address] Dec, [facility] [place] [facility] [address] [facility] [id number] [place] [address] Dec, [facility] [place] [facility] [address] [id number] [facility] [place] [address] Dec, [facility] [place] [facility] [address] [facility] [id number] [place] [address] Dec, [facility] [place] [facility] [address] [id number] [place] [address] Dec, [facility] [place] [facility] [address] [facility] [id number] [facility] [place] [address] Dec, [facility] [place] [facility] [address] [id number] [place] [address] Dec, [facility] [place] [facility] [address] [facility] [id number] [place] [address] Dec, [facility] [place] [facility] [address] [id number] [facility] [place] [address] Dec, [facility] [place] [facility] [address] [id number] [place] [address] Dec, [facility] [place] [facility] [address] [facility] [id number] [facility] [place] [address] Nov, [facility] [place] [facility] [address] [facility] [id number] [place] [address] Nov, [facility] [place] [facility] [address] [id number] [place] [address] Nov, [facility] [place] [facility] [address] [facility] [id number] [place] [address] Nov, [facility] [place] [facility] [address] [facility] [id number] [place] [address] Nov, [facility] [place] [facility] [address] [id number] [place] [address] Nov, [facility] [place] [facility] [address] [id number] [place] [address] Nov, [facility] [place] [facility] [address] [id number] [place] [address] Nov, [facility] [place] [facility] [address] [id number] [place] [address] Nov, [facility] [place] [facility] [address] [id number] [place] [address] Nov, [facility] [place] [facility] [address] [id number] [place] [address] Nov, [facility] [place] [facility] [address] [id number] [place] [address] Nov, [facility] [place] [facility] [address] [facility] [id number] [place] [address] October, [facility] [place] [facility] [address] [id number] [place] [address] October, [facility] [place] [facility] [address] [id number] [place] [address] October, [facility] [place] [facility] [address] [id number] [place] [address] October, [facility] [place] [facility] [address] [id number] [place] [address] October, [facility] [place] [facility] [address] [id number] [place] [address] October, [facility] [place] [facility] [address] [id number] [place] [address] October, [facility] [place] [facility] [address] [id number] [place] [address] October, [facility] [place] [facility] [address] [id number] [place] [address] October, [facility] [place] [facility] [address] [id number] [place] [address] October, [facility] [place] [facility] [address] [id number] [place] [address] Sep, [facility] [place] [facility] [address] [id number] [place] [address] Sep, [facility] [place] [facility] [address] [id number] [place] [address] Sep, [facility] [place] [facility] [address] [id number] [place] [address] Sep, [facility] [place] [facility] [address] [id number] [place] [address] Sep, [facility] [place] [facility] [address] [id number] [place] [address] Sep, [facility] [place] [facility] [address] [id number] [place] [address] Sep, [facility] [place] [facility] [address] [id number] [place] [address] Sep, [facility] [place] [facility] [address] [id number] [place] [address] Aug, [facility] [place] [facility] [address] [id number] [place] [address] Aug, [facility] [place] [facility] [address] [id number] [place] [address] Aug, [facility] [place] [facility] [address] [facility] [id number] [facility] [place] [address] Aug, [facility] [place] [facility] [address] [facility] [id number] [facility] [place] [address] Aug, [facility] [place] [facility] [address] [facility] [id number] [facility] [place] [address] Aug, [facility] [place] [facility] [address] [id number] [facility] [place] [address] Aug, [facility] [place] [facility] [address] [facility] [id number] [place] [address] Aug, [facility] [place] [facility] [address] [id number] [facility] [place] [address] Jul, [facility] [place] [facility] [address] [id number] [facility] [place] [address] Jul, [facility] [place] [facility] [address] [id number] [facility] [place] [address] Jul, [facility] [place] [facility] [address] [facility] [id number] [facility] [place] [address] Jul, [facility] [place] [facility] [address] [id number] [facility] [place] [address] Jul, [facility] [place] [facility] [address] [id number] [place] [address] Jul, [facility] [place] [facility] [address] [id number] [place] [address] Jul, [facility] [place] [facility] [address] [facility] [id number] [facility] [place] [address] Jul, [facility] [place] [facility] [address] [id number] [place] [address] Jun, [facility] [place] [facility] [address] [id number] [place] [address] Jun, [facility] [place] [facility] [address] [id number] [place] [address] Jun, [facility] [place] [facility] [address] [id number] [place] [address] Jun, [facility] [place] [facility] [address] [id number] [place] [address] Jun, [facility] [place] [facility] [address] [id number] [place] [address] Jun, [facility] [place] [facility] [address] [id number] [place] [address] Jun, [facility] [place] [facility] [address] [id number] [place] [address] Jun, [facility] [place] [facility] [address] [id number] [place] [address] May, [facility] [place] [facility] [address] [id number] [place] [address] May, [facility] [place] [facility] [address] [id number] [place] [address] May, [facility] [place] [facility] [address] [id number] [place] [address] May, [facility] [place] [facility] [address] [id number] [place] [address] May, [facility] [place] [facility] [address] [id number] [place] [address] May, [facility] [place] [facility] [address] [id number] [place] [address] Apr, [facility] [place] [facility] [address] [id number] [place] [address] Apr, [facility] [place] [facility] [address] [id number] [place] [address] Mar, [facility] [place] [facility] [id number] [place] [address] Mar, [facility] [place] [facility] [address] [id number] [place] [address] Mar, [facility] [place] [facility] [address] [id number] [place] [address] Mar, [facility] [place] [facility] [address] [facility] [id number] [place] [address] Mar, [facility] [place] [facility] [address] [id number] [place] [address] Feb, [facility] [place] [facility] [address] [id number] [place] [address] Jan, [facility] [place] [facility] [address] [id number] [place] [address] Jan, [facility] [place] [facility] [address] [facility] [id number] [place] [address] Jan, [facility] [place] [facility] [address] [id number] [place] [address] Jan, [facility] [place] [facility] [address] [id number] [place] [address] Jan, [facility] [place] [facility] [address] [id number] [place] [address] Dec, [facility] [place] [facility] [address] [id number] [place] [address] Dec, [facility] [place] [facility] [address] [id number] [place] [address] Dec, [facility] [place] [facility] [address] [id number] [place] [address] Dec, [facility] [place] [facility] [address] [id number] [place] [address] Nov, [facility] [place] [facility] [address] [id number] [place] [address] Nov, [facility] [place] [facility] [address] [id number] [place] [address] Nov, [facility] [place] [facility] [address] [id number] [place] [address] October, [facility] [place] [facility] [address] [id number] [place] [address] October, [facility] [place] [facility] [address] [id number] [place] [address] October, [facility] [address] [id number] [place] [address] Sep, [facility] [place] [facility] [address] [id number] [place] [address] Sep, [facility] [place] [facility] [address] [id number] [place] [address] Aug, [facility] [place] [facility] [address] [id number] [place] [address] Aug, [facility] [address] [id number] [place] [address] Jul, [facility] [address] [id number] [place] [address] Jul, [facility] [address] [id number] [place] [address] Jul, [facility] [address] [id number] [place] [address] Jul, [facility] [address] [id number] [place] [address] Jul, [facility] [address] [id number] [place] [address] Jun, [facility] [address] [id number] [place] [address] May, [facility] [address] [id number] [place] [address] 31 May, 2012 [facility] [address] [id number] [place] [address] 14 May, 2012 [facility] [address] [id number] [place] [address] 14 May, 2012 [facility] [address] [id number] [place] [address] 13 May, 2012 [facility] [address] [id number] [place] [address] 13 May, 2012 [facility] [address] [id number] [place] [address] May, [facility] [address] [id number] [place] [address] May, [facility] [address] [id number] [place] [address] Apr, [facility] [address] [id number] [place] [address] Apr, [facility] [address] [id number] [place] [address] Apr, [facility] [address] [id number] [place] [address] Apr, [facility] [address] [id number] [place] [address] Mar, [facility] [address] [id number] [place] [address] Mar, [facility] [address] [id number] [place] [address] Mar, [facility] [address] [id number] [place] [address] Feb, [facility] [address] [id number] [place] [address] Feb, [facility] [address] [id number] [place] [address] Jan, [facility] [address] [id number] [place] [address] Jan, [facility] [address] [id number] [place] [address] Jan, [facility] [address] [id number] [place] [address] Dec, [facility] [address] [id number] [place] [address] Dec, [facility] [address] [id number] [place] [address] Dec, [facility] [address] [id number] [place] [address] Dec, [facility] [address] [id number] [place] [address] Nov, [facility] [address] [id number] [place] [address] Nov, [facility] [address] [id number] [place] [address] Nov, [facility] [address] [facility] [id number] [place] [address] October, [facility] [address] [id number] [place] [address] October, [facility] [address] [id number] [place] [address] October, [facility] [address] [id number] [place] [address] Sep, [facility] [address] [id number] [place] [address] Sep, [facility] [address] [id number] [place] [address] Sep, [facility] [address] [id number] [place] [address] Aug, [facility] [address] [id number] [place] [address] 15 Aug, 2011 [facility] [address] [id number] [place] [address] Aug, [facility] [address] [id number] [place] [address] Jul, [facility] [address] [id number] [place] [address] Jun, [facility] [address] [id number] [place] [address] Jun, [facility] [address] [id number] [place] [address] May, [facility] [address] [id number] [place] [address] May, [facility] [address] [id number] [place] [address] May, [facility] [address] [id number] [place] [address] May, [facility] [address] [id number] [place] [address] Apr, [facility] [address] [id number] [place] [address] Apr, [facility] [address] [id number] [place] [address] Apr, [facility] [id number] [place] [address] Apr, [facility] [address] [id number] [place] [address] Apr, [facility] [address] [id number] [place] [address] Mar, [facility] [address] [id number] [place] [address] Mar, [facility] [address] [id number] [place] [address] Jan, [facility] [address] [id number] [place] [address] May, [facility] [address] [id number] [place] [address] Apr, [facility] [id number] [place] [address] Mar, [facility] [address] [id number] [place] [address] Jun, [facility] [address] [id number] [place] [address] Apr, [facility] [address] [facility] [id number] [place] [address] Apr, IMMUNIZATIONS No Known Immunizations SOCIAL HISTORY Never Assessed REASON FOR VISIT PLAN OF CARE VITAL SIGNS Height 76 in 2013-11-11 Weight 217 lbs 2013-11-11 Temperature 97.4 degrees Fahrenheit 2013-11-11 Heart Rate 76 bpm 2013-11-11 Respiratory Rate 22 2013-11-11 Blood pressure systolic 108 mmHg 2013-11-11 Blood pressure diastolic 66 mmHg 2013-11-11 MEDICATIONS Unknown Medications RESULTS No Results PROCEDURES No Known procedures INSTRUCTIONS MEDICATIONS ADMINISTERED No Known Medications MEDICAL (GENERAL) HISTORY Type Description Date Medical History seizures Surgical History No Surgical history information
--- OUTSIDE RECORDS SUMMARY | 2019-09-07 02:33 | XMS REPORT ---
Author Author Reymundo BERKOWITZ Organization [facility] Address [address] [place] [address] Care Team Providers Care Event Marketing Representative Name Role Phone WOOCHELSIEALVARADO Unavailable PROBLEMS Type Condition ICD9-CM Code [id number] Code Onset Dates Condition S tatus SNOMED Code Problem Alcohol abuse F10.10 Active 027751 05 Problem Relationship dysfunction Z63.9 Activ e [id number] Problem Impulse control disorder F63.9 Activ e [id number] Problem Depressive disorder F32.9 Active 08698038 Problem Mild intellectual disabilities F70 Active 06841400 Problem Seasonal allergic rhinitis due to pollen J30.1 Active [id number] ALLERGIES No Information ENCOUNTERS Encounter Location Date Diagnosis [place] [id number] [address] Jul, [facility] [address] [address] Jul, [facility] [address] [address] Jul, [facility] [address] [address] May, [facility] [address] [address] Apr, [facility] [address] [address] Apr, Depressive disorder F32.9 ; Impulse cont rol disorder F63.9 and Mild intellectual disabilities F70 [facility] [address] [address] Apr, [facility] [address] [address] Apr, [place] [address] [address] Apr, [facility] [address] [address] Apr, Impulse control disorder F63.9 ; Depress douglas disorder F32.9 and Mild intellectual disabilities F70 [address] [place] [address] Mar, [facility] [address] [address] Mar, [facility] [address] [address] Mar, Encounter for immunization Z23 [place] [address] [address] Dec, [facility] [address] [address] Dec, Seasonal allergic rhinitis due to pollen J30.1 [facility] [address] [address] October, Depressive disorder F32.9 ; Impulse cont rol disorder F63.9 and Mild intellectual disabilities F70 [place] [address] [address] Jun, Impulse control disorder F63.9 ; Mild in tellectual disabilities F70 ; Relationship dysfunction Z63.9 and Depressive disorder F32.9 [facility] [address] [address] Jun, [facility] [address] [address] May, [facility] [address] [address] May, [facility] [address] [address] May, Encounter for immunization Z23 [facility] [address] [address] Apr, [facility] [address] [address] Apr, [facility] [address] [address] Mar, [facility] [address] [address] Mar, [facility] [address] [address] Feb, Annual physical exam Z00.00 [facility] [address] [address] 25 Feb, 2018 Annual physical exam Z00.00 ; Mild intel lectual disabilities F70 and Encounter for immunization Z23 [facility] [address] [address] 11 Feb, 2018 [facility] [address] [address] Jan, [facility] [address] [address] Jan, Impulse control disorder F63.9 ; Mild in tellectual disabilities F70 and Depressive disorder F32.9 [facility] [address] [address] Nov, [facility] [address] [address] Nov, [facility] [address] [address] Nov, [facility] [address] [address] Nov, [facility] [address] [address] Nov, [facility] [address] [address] 05 Nov, 2017 Impulse control disorder F63.9 ; Depress douglas disorder F32.9 and Mild intellectual disabilities F70 [facility] [address] [address] October, [facility] [address] [place] [address] October, Impulse control disorder F63.9 ; Depress douglas disorder F32.9 and Mild intellectual disabilities F70 [facility] [address] [place] [id number] Sep, [facility] [address] [place] [id number] Sep, Impulse control disorder F63.9 ; Depress douglas disorder F32.9 and Mild intellectual disabilities F70 [facility] [address] [address] Sep, Impulse control disorder F63.9 ; Depress douglas disorder F32.9 and Mild intellectual disabilities F70 [facility] [address] [address] Aug, [facility] [address] [address] Aug, Impulse control disorder F63.9 ; Depress douglas disorder F32.9 and Mild intellectual disabilities F70 [facility] [address] [id number] Aug, Dental examination Z01.20 [facility] [address] [address] Aug, [facility] [address] [address] Aug, Impulse control disorder F63.9 ; Depress douglas disorder F32.9 and Mild intellectual disabilities F70 [facility] [address] [address] 13 Jul, 2017 Impulse control disorder F63.9 ; Depress douglas disorder F32.9 and Mild intellectual disabilities F70 [facility] [address] [id number] 12 Jul, 2017 Dental examination Z01.20 [facility] [address] [address] 02 Jul, 2017 [facility] [address] [address] Jun, Impulse control disorder F63.9 ; Depress douglas disorder F32.9 and Mild intellectual disabilities F70 [facility] [address] [address] Jun, Impulse control disorder F63.9 ; Depress douglas disorder F32.9 and Mild intellectual disabilities F70 [facility] [address] [address] Jun, [facility] [address] [address] May, [facility] [address] [address] May, Impulse control disorder F63.9 ; Depress douglas disorder F32.9 and Mild intellectual disabilities F70 [place] [address] [address] Apr, Impulse control disorder F63.9 ; Depress douglas disorder F32.9 and Mild intellectual disabilities F70 [facility] [address] [address] Apr, Seizures R56.9 [place] [address] [address] Apr, [facility] [address] [address] Apr, Seizures R56.9 ; Tobacco abuse Z72.0 ; A lcohol abuse F10.10 and Encounter for immunization Z23 [facility] [address] [address] 14 Apr, 2017 Impulse control disorder F63.9 ; Depress douglas disorder F32.9 and Mild intellectual disabilities F70 [place] [address] [address] Mar, Impulse control disorder F63.9 ; Depress douglas disorder F32.9 and Mild intellectual disabilities F70 [facility] [address] [address] Mar, [facility] [address] [address] Mar, Impulse control disorder F63.9 ; Depress douglas disorder F32.9 and Mild intellectual disabilities F70 [facility] [address] [address] Mar, [facility] [address] [address] Feb, Impulse control disorder F63.9 ; Depress douglas disorder F32.9 and Mild intellectual disabilities F70 [facility] [address] [address] Feb, [facility] [address] [address] Feb, Impulse control disorder F63.9 ; Depress douglas disorder F32.9 and Mild intellectual disabilities F70 [facility] [address] [address] Jan, Annual physical exam Z00.00 ; Right hand pain M79.641 ; Impulse control disorder F63.9 ; Mild intellectual disabilities F70 and Depressive disorder F32.9 [facility] [address] [address] Jan, Impulse control disorder F63.9 ; Depress douglas disorder F32.9 and Mild intellectual disabilities F70 [facility] [address] [address] Jan, [facility] [address] [address] Jan, Impulse control disorder F63.9 ; Depress douglas disorder F32.9 and Mild intellectual disabilities F70 [facility] [address] [address] Jan, Impulse control disorder F63.9 ; Depress douglas disorder F32.9 and Mild intellectual disabilities F70 [facility] [address] [address] Dec, [facility] [address] [address] Dec, Impulse control disorder F63.9 ; Depress douglas disorder F32.9 and Mild intellectual disabilities F70 [facility] [address] [address] Nov, Impulse control disorder F63.9 ; Depress douglas disorder F32.9 and Mild intellectual disabilities F70 [facility] [address] [address] Nov, [facility] [address] [address] Nov, [facility] [address] [address] Nov, [facility] [address] [address] October, Impulse control disorder F63.9 ; Depress douglas disorder F32.9 and Mild intellectual disabilities F70 [facility] [address] [address] October, [facility] [address] [address] October, Impulse control disorder F63.9 ; Depress douglas disorder F32.9 and Mild intellectual disabilities F70 [facility] [address] [address] Sep, [facility] [address] [address] Sep, Impulse control disorder F63.9 ; Depress douglas disorder F32.9 and Mild intellectual disabilities F70 [facility] [address] [address] Sep, Seasonal allergic rhinitis due to pollen J30.1 [facility] [address] [address] Sep, [facility] [address] [address] Sep, [facility] [address] [address] Sep, Impulse control disorder F63.9 ; Depress douglas disorder F32.9 and Mild intellectual disabilities F70 [facility] [address] [address] Aug, Impulse control disorder F63.9 ; Depress douglas disorder F32.9 and Mild intellectual disabilities F70 [facility] [address] [address] Aug, [facility] [address] [address] Aug, [facility] [address] [address] Jul, [facility] [address] [address] Jul, Impulse control disorder F63.9 ; Depress douglas disorder F32.9 and Mild intellectual disabilities F70 [facility] [address] [facility] [place] [id number] 10 Jul, 2016 Dental examination Z01.20 [facility] [address] [place] [id number] [place] [address] Jul, Impulse control disorder F63.9 ; Depress douglas disorder F32.9 and Mild intellectual disabilities F70 [facility] [address] [address] Jul, [facility] [address] [address] Jun, [facility] [address] [address] Jun, Impulse control disorder F63.9 ; Depress douglas disorder F32.9 and Mild intellectual disabilities F70 [facility] [address] [address] Jun, [facility] [address] [address] Jun, [facility] [address] [address] Jun, Impulse control disorder F63.9 ; Depress douglas disorder F32.9 and Mild intellectual disabilities F70 [facility] [address] [address] May, Impulse control disorder F63.9 ; Depress douglas disorder F32.9 and Mild intellectual disabilities F70 [facility] [address] [address] May, Annual physical exam Z00.00 ; Other fati sarah R53.83 ; Seizures R56.9 ; Mild intellectual disabilities F70 and Impulse control disorder F63.9 [facility] [address] [address] May, [facility] [address] [address] May, Impulse control disorder F63.9 ; Depress douglas disorder F32.9 and Mild intellectual disabilities F70 [facility] [address] [facility] [place] [id number] 30 Apr, 2016 Encounter for dental examination Z01.20 [facility] [address] [address] Apr, Impulse control disorder F63.9 ; Depress douglas disorder F32.9 and Mild intellectual disabilities F70 [facility] [address] [address] Apr, [facility] [address] [address] Mar, Impulse control disorder F63.9 ; Depress douglas disorder F32.9 and Mild intellectual disabilities F70 [facility] [address] [address] Mar, Impulse control disorder F63.9 ; Depress douglas disorder F32.9 and Mild intellectual disabilities F70 [facility] [address] [address] 06 Mar, 2016 [facility] [address] [address] Mar, [facility] [address] [address] Feb, Impulse control disorder F63.9 ; Depress douglas disorder F32.9 and Mild intellectual disabilities F70 [facility] [address] [address] 08 Feb, 2016 Impulse control disorder F63.9 ; Depress douglas disorder F32.9 and Mild intellectual disabilities F70 [facility] [address] [address] Feb, [facility] [address] [address] Jan, Annual physical exam Z00.00 ; Impulse co ntrol disorder F63.9 ; Mild intellectual disabilities F70 ; Depressive disorder F32.9 and Seizures R56.9 [facility] [address] [address] Jan, Impulse control disorder F63.9 ; Depress douglas disorder F32.9 and Mild intellectual disabilities F70 [facility] [address] [address] Jan, [facility] [address] [address] Jan, Impulse control disorder F63.9 ; Depress douglas disorder F32.9 and Mild intellectual disabilities F70 [facility] [address] [address] Jan, [facility] [address] [address] Jan, [facility] [address] [address] Dec, Impulse control disorder F63.9 ; Depress douglas disorder F32.9 and Mild intellectual disabilities F70 [facility] [address] [place] [id number] [place] [address] Dec, Impulse control disorder F63.9 ; Depress douglas disorder F32.9 and Mild intellectual disabilities F70 [facility] [address] [address] Dec, [facility] [address] [address] Dec, Depressive disorder F32.9 ; Impulse cont rol disorder F63.9 and Mild intellectual disabilities F70 [facility] [address] [address] Nov, [facility] [address] [address] Nov, Depressive disorder F32.9 ; Impulse cont rol disorder F63.9 and Mild intellectual disabilities F70 [facility] [address] [address] Nov, [facility] [address] [address] October, Depressive disorder F32.9 ; Impulse cont rol disorder F63.9 and Mild intellectual disabilities F70 [facility] [address] [address] October, [facility] [address] [address] October, [facility] [address] [address] October, Depressive disorder F32.9 ; Impulse cont rol disorder F63.9 and Mild intellectual disabilities F70 [facility] [address] [address] October, [facility] [address] [address] Sep, [facility] [address] [address] Sep, Depressive disorder F32.9 ; Impulse cont rol disorder F63.9 and Mild intellectual disabilities F70 [facility] [address] [address] Sep, Depressive disorder F32.9 ; Impulse cont rol disorder F63.9 and Mild intellectual disabilities F70 [facility] [address] [address] Sep, [facility] [address] [address] Aug, [facility] [address] [address] Aug, Depressive disorder F32.9 ; Impulse cont rol disorder F63.9 and Mild intellectual disabilities F70 [facility] [address] [address] Aug, Depressive disorder F32.9 ; Impulse cont rol disorder F63.9 and Mild intellectual disabilities F70 [facility] [address] [place] [id number] [place] [id number] Jul, Dental examination Z01.20 [facility] [address] [address] Jul, [facility] [address] [address] Jul, Depressive disorder F32.9 ; Impulse cont rol disorder F63.9 and Mild intellectual disabilities F70 [facility] [address] [place] [address] 05 Jul, 2015 Depressive disorder F32.9 ; Impulse cont rol disorder F63.9 and Mild intellectual disabilities F70 [facility] [address] [address] 02 Jul, 2015 Depression screening Z13.89 ; Drug juliae wm, 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 and Screening for STD sexually transmitted disease Z11.3 [facility] [address] [address] Jun, [facility] [address] [place] [id number] Jun, Depressive disorder F32.9 ; Impulse cont rol disorder F63.9 and Mild intellectual disabilities F70 [facility] [address] [address] Jun, Depressive disorder, not elsewhere class ified F32.9 ; Mild mental retardation F70 and Impulse control disorder F63.9 [place] [address] [address] Jun, Depressive disorder, not elsewhere class ified F32.9 ; Impulse control disorder F63.9 and Mild intellectual disabilities F70 [facility] [address] [address] Jun, [facility] [address] [id number] Jun, Dental examination Z01.20 [facility] [address] [address] 17 May, 2015 Depressive disorder, not elsewhere class ified F32.9 ; Impulse control disorder F63.9 and Mild intellectual disabilities F70 [facility] [address] [address] May, [facility] [address] [address] May, [facility] [address] [address] May, Depressive disorder, not elsewhere class ified F32.9 ; Impulse control disorder F63.9 and Mild intellectual disabilities F70 [facility] [address] [address] May, Depressive disorder, not elsewhere class ified F32.9 ; Impulse control disorder F63.9 and Mild mental retardation F70 [facility] [address] [address] Apr, Depressive disorder, not elsewhere class ified F32.9 ; Impulse control disorder F63.9 and Mild intellectual disabilities F70 [facility] [address] [address] Apr, [facility] [address] [address] Mar, Depressive disorder, not elsewhere class ified F32.9 ; Impulse control disorder F63.9 and Mild intellectual disabilities F70 [facility] [address] [address] Mar, Depressive disorder, not elsewhere class ified F32.9 ; Impulse control disorder F63.9 and Mild intellectual disabilities F70 [facility] [address] [address] Mar, [facility] [address] [address] Mar, Encounter for immunization Z23 [facility] [address] [address] Mar, Depressive disorder, not elsewhere class ified F32.9 ; Impulse control disorder F63.9 and Mild intellectual disabilities F70 [facility] [address] [address] Feb, Depressive disorder, not elsewhere class ified 311 ; Impulse control disorder, unspecified 312.30 and Mild mental retardation 317 [facility] [address] [address] Feb, [facility] [address] [address] Feb, Depressive disorder, not elsewhere class ified 311 ; Impulse control disorder, unspecified 312.30 and Mild mental retardation 317 [facility] [address] [address] Jan, Depressive disorder, not elsewhere class ified 311 ; Impulse control disorder, unspecified 312.30 and Mild mental retardation 317 [facility] [address] [address] Jan, Depressive disorder, not elsewhere class ified 311 ; Impulse control disorder, unspecified 312.30 and Mild mental retardation 317 [facility] [address] [address] Jan, [facility] [address] [address] Jan, Depressive disorder, not elsewhere class ified 311 ; Impulse control disorder, unspecified 312.30 and Mild mental retardation 317 [place] [address] [address] Dec, Depressive disorder, not elsewhere class ified 311 ; Impulse control disorder, unspecified 312.30 and Mild mental retardation 317 [place] [address] [address] Dec, [facility] [id number] [place] [id number] Dec, Dental examination V72.[address] [address] Dec, Heat rash 705.1 ; Seizures 780.39 and Hi gh risk medication use V58.69 [place] [address] [address] Dec, [place] [address] [address] Dec, Depressive disorder, not elsewhere class ified 311 ; Impulse control disorder, unspecified 312.30 and Mild mental retardation 317 [facility] [address] [address] Nov, Depressive disorder, not elsewhere class ified 311 ; Impulse control disorder, unspecified 312.30 and Mild mental retardation 317 [place] [address] [address] Nov, [place] [address] [place] [id number] [place] [address] 15 Nov, 2014 Nicotine addiction 305.1 [facility] [id number] [place] [address] 11 Nov, 2014 [facility] [id number] [place] [address] 11 Nov, 2014 High risk medication use V58.69 [facility] [address] [address] 10 Nov, 2014 High risk medication use V58.69 [facility] [id number] [place] [address] 09 Nov, 2014 Depressive disorder, not elsewhere class ified 311 ; Impulse control disorder, unspecified 312.30 and Mild mental retardation 317 [facility] [id number] [place] [address] Nov, Depressive disorder, not elsewhere class ified 311 ; 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 and Impulse control disorder, unspecified 312.30 [facility] [address] [id number] [place] [address] October, Depressive disorder, not elsewhere class ified 311 ; Impulse control disorder, unspecified 312.30 and Mild mental retardation 317 [facility] [address] [id number] [place] [address] October, [facility] [address] [id number] [place] [address] October, Depressive disorder, not elsewhere class ified 311 ; Impulse control disorder, unspecified 312.30 and Mild mental retardation 317 [facility] [address] [id number] [place] [address] October, [facility] [address] [id number] [place] [id number] October, Dental examination V72.2 [facility] [address] [id number] [place] [address] Sep, Depressive disorder, not elsewhere class ified 311 ; Impulse control disorder 312.30 and Mild mental retardation [address] [id number] [place] [address] 14 Sep, 2014 [facility] [address] [id number] [place] [address] 13 Sep, 2014 [facility] [address] [id number] [place] [address] 26 Aug, 2014 [facility] [address] [id number] [place] [address] Aug, [facility] [address] [id number] [place] [address] Aug, [facility] [address] [id number] [place] [address] Aug, [facility] [address] [id number] [place] [address] Aug, [facility] [address] [id number] [place] [address] Aug, [facility] [address] [id number] [place] [address] Aug, [facility] [address] [id number] [place] [address] Aug, [facility] [address] [id number] [place] [address] Jul, 2014 [facility] [address] [id number] [place] [address] Jul, 2014 [facility] [address] [id number] [place] [address] Jul, 2014 [facility] [address] [id number] [place] [address] Jul, 2014 [facility] [address] [id number] [place] [address] 16 Jul, 2014 [facility] [address] [id number] [place] [address] 16 Jul, 2014 [facility] [address] [id number] [place] [address] Jul, 2014 [facility] [address] [facility] [id number] [place] [address] Jul, [facility] [address] [id number] [place] [address] Jul, [facility] [address] [id number] [place] [address] Jul, [facility] [address] [id number] [place] [address] Jul, [facility] [address] [id number] [place] [address] Jul, [facility] [address] [id number] [place] [address] Jul, [facility] [address] [id number] [place] [address] Jul, [facility] [address] [id number] [place] [address] Jun, [facility] [address] [id number] [place] [address] Jun, [facility] [address] [id number] [place] [address] Jun, [facility] [address] [id number] [place] [address] Jun, [facility] [address] [id number] [place] [address] Jun, [facility] [address] [id number] [place] [address] Jun, [facility] [address] [id number] [place] [address] Jun, [facility] [address] [id number] [place] [address] Jun, [facility] [address] [id number] [place] [address] Jun, [facility] [address] [id number] [place] [address] 15 Jun, 2014 [facility] [address] [id number] [place] [address] Jun, [facility] [address] [id number] [place] [address] Jun, [facility] [address] [id number] [place] [address] 08 Jun, 2014 [facility] [address] [id number] [place] [address] 08 Jun, 2014 [facility] [address] [id number] [place] [address] Jun, [facility] [address] [id number] [place] [address] 08 Jun, 2014 [facility] [address] [id number] [place] [address] Jun, [facility] [address] [id number] [place] [address] Jun, [facility] [address] [id number] [place] [address] Jun, [facility] [address] [id number] [place] [address] Jun, [facility] [address] [id number] [place] [address] May, [facility] [address] [id number] [place] [address] May, [facility] [address] [id number] [place] [address] May, [facility] [address] [id number] [place] [address] May, [facility] [address] [id number] [place] [address] May, [facility] [address] [id number] [place] [address] Apr, [facility] [address] [facility] [id number] [place] [address] Apr, [facility] [address] [id number] [place] [address] Apr, [facility] [address] [id number] [place] [address] Apr, [facility] [address] [id number] [place] [address] Apr, [facility] [address] [facility] [id number] [place] [address] Apr, [facility] [address] [id number] [place] [address] Apr, [facility] [address] [id number] [place] [address] Apr, [facility] [address] [id number] [place] [address] Mar, [facility] [address] [id number] [place] [address] Mar, [facility] [address] [id number] [place] [address] Mar, [facility] [address] [id number] [place] [address] Mar, [facility] [address] [id number] [place] [address] Mar, [facility] [address] [id number] [place] [address] Mar, [facility] [address] [id number] [place] [address] Mar, [facility] [address] [id number] [place] [address] Mar, [facility] [address] [id number] [place] [address] Mar, [facility] [address] [id number] [place] [address] 16 Mar, 2013 [facility] [address] [facility] [id number] [place] [address] 16 Mar, 2013 [facility] [address] [id number] [place] [address] 16 Mar, 2013 [facility] [address] [id number] [place] [address] 15 Mar, 2014 [facility] [address] [id number] [place] [address] 15 Mar, 2013 [facility] [address] [id number] [place] [address] Mar, [facility] [address] [id number] [place] [address] Mar, 2013 [facility] [address] [id number] [place] [address] Mar, [facility] [address] [id number] [place] [address] Mar, 2013 [facility] [address] [id number] [place] [address] Mar, [facility] [address] [id number] [place] [address] Mar, [facility] [address] [id number] [place] [address] 24 Feb, 2013 [facility] [address] [id number] [place] [address] 24 Feb, 2013 [facility] [address] [id number] [place] [address] 19 Sep, 2013 [facility] [address] [id number] [place] [address] 19 Feb, 2013 [facility] [address] [id number] [place] [address] 11 Feb, 2013 [facility] [address] [id number] [place] [address] Feb, [facility] [address] [id number] [place] [address] Feb, 2013 [facility] [address] [facility] [id number] [place] [address] Feb, [facility] [address] [facility] [id number] [place] [address] Jan, [facility] [address] [facility] [id number] [place] [address] Jan, [facility] [address] [facility] [id number] [place] [address] Jan, [facility] [address] [facility] [id number] [place] [address] Jan, [facility] [address] [facility] [id number] [place] [address] Dec, [facility] [address] [id number] [place] [address] Dec, [facility] [address] [facility] [id number] [place] [address] Dec, [facility] [address] [id number] [place] [address] Dec, [facility] [address] [id number] [place] [address] Dec, [facility] [address] [id number] [place] [address] Dec, [facility] [address] [facility] [id number] [place] [address] Dec, [facility] [address] [facility] [id number] [place] [address] Dec, [facility] [address] [facility] [id number] [place] [address] Dec, [facility] [address] [id number] [place] [address] Dec, [facility] [address] [id number] [place] [address] Nov, [facility] [address] [facility] [id number] [place] [address] Nov, [facility] [address] [facility] [id number] [place] [place] [address] Nov, [facility] [address] [id number] [place] [address] Nov, [facility] [address] [facility] [id number] [place] [address] Nov, [facility] [address] [facility] [id number] [facility] [place] [address] Nov, [facility] [address] [facility] [id number] [place] [address] Nov, [facility] [address] [id number] [place] [address] Nov, [facility] [address] [id number] [place] [address] Nov, [facility] [address] [facility] [id number] [place] [address] Nov, [facility] [address] [id number] [place] [address] Nov, [facility] [address] [id number] [place] [address] Nov, [facility] [address] [id number] [place] [address] October, [facility] [address] [facility] [id number] [place] [address] October, [facility] [address] [facility] [id number] [place] [address] October, [facility] [address] [id number] [place] [address] October, [facility] [address] [id number] [place] [address] October, [facility] [address] [id number] [place] [address] October, [facility] [address] [facility] [id number] [place] [address] October, [facility] [address] [id number] [place] [address] October, [facility] [address] [id number] [place] [address] October, [facility] [address] [id number] [place] [address] October, [facility] [address] [id number] [place] [address] Sep, [facility] [address] [id number] [place] [address] Sep, [facility] [address] [id number] [place] [address] Sep, [facility] [address] [id number] [place] [address] Sep, [facility] [address] [id number] [place] [address] Sep, [facility] [address] [id number] [place] [address] Sep, [facility] [address] [id number] [place] [address] Sep, [facility] [address] [id number] [place] [address] Sep, [facility] [address] [id number] [place] [address] Aug, [facility] [address] [id number] [place] [address] Aug, [facility] [address] [id number] [place] [address] Aug, [facility] [address] [id number] [place] [address] Aug, [facility] [address] [facility] [id number] [place] [address] Aug, [facility] [address] [id number] [place] [address] Aug, [facility] [address] [id number] [place] [address] Aug, [facility] [address] [id number] [place] [address] Aug, [facility] [address] [id number] [place] [address] Jul, [facility] [address] [id number] [place] [address] Jul, [facility] [address] [id number] [place] [address] Jul, [facility] [address] [id number] [place] [address] Jul, [facility] [address] [id number] [place] [address] Jul, [facility] [address] [id number] [place] [address] Jul, [facility] [address] [id number] [place] [address] Jul, [facility] [address] [id number] [place] [address] Jul, [facility] [address] [id number] [place] [address] Jun, [facility] [address] [id number] [place] [address] Jun, [facility] [address] [id number] [place] [address] Jun, [facility] [address] [id number] [place] [address] Jun, [facility] [address] [id number] [place] [address] 16 Jun, 2013 [facility] [address] [id number] [place] [address] Jun, [facility] [address] [id number] [place] [address] Jun, [facility] [address] [id number] [place] [address] Jun, [facility] [address] [id number] [place] [address] May, [facility] [address] [id number] [place] [address] May, [facility] [address] [id number] [place] [address] May, [facility] [address] [id number] [place] [address] May, [facility] [address] [id number] [place] [address] May, [facility] [address] [id number] [place] [address] May, [facility] [address] [id number] [place] [address] Apr, [facility] [address] [id number] [place] [address] Apr, [facility] [address] [id number] [place] [address] Mar, [facility] [address] [id number] [place] [address] Mar, [facility] [address] [id number] [place] [address] Mar, [facility] [address] [id number] [place] [address] Mar, [facility] [address] [id number] [place] [address] Mar, [facility] [address] [id number] [place] [address] Feb, [facility] [address] [id number] [place] [address] Jan, [facility] [id number] [place] [address] Jan, [facility] [id number] [place] [address] Jan, [facility] [id number] [place] [address] Jan, [facility] [id number] [place] [address] Jan, [facility] [id number] [place] [address] Dec, [facility] [id number] [place] [address] Dec, [facility] [id number] [place] [address] Dec, [facility] [id number] [place] [address] Dec, [facility] [id number] [place] [address] Nov, [facility] [id number] [place] [address] Nov, [facility] [id number] [place] [address] Nov, [facility] [id number] [place] [address] October, [facility] [id number] [place] [address] October, [facility] [id number] [place] [address] October, [facility] [id number] [place] [address] Sep, [facility] [id number] [place] [address] Sep, [facility] [id number] [place] [address] Aug, [facility] [id number] [place] [address] Aug, [facility] [id number] [place] [address] Jul, [facility] [id number] [facility] [place] [address] Jul, [facility] [id number] [place] [address] Jul, [facility] [id number] [place] [address] Jul, [facility] [id number] [place] [address] Jul, [facility] [id number] [place] [address] Jun, [facility] [id number] [place] [address] May, [facility] [id number] [place] [address] 31 May, 2012 [facility] [id number] [place] [address] 14 May, 2012 [facility] [id number] [place] [address] 14 May, 2012 [facility] [id number] [place] [address] May, [facility] [id number] [place] [address] 13 May, 2012 [facility] [id number] [place] [address] 10 May, 2012 [facility] [id number] [place] [address] May, [facility] [id number] [place] [address] Apr, [facility] [id number] [place] [address] Apr, [facility] [id number] [place] [address] Apr, [facility] [id number] [place] [address] Apr, [facility] [id number] [place] [address] Mar, [facility] [id number] [place] [address] Mar, [facility] [id number] [place] [address] Mar, [facility] [id number] [place] [address] Feb, [facility] [id number] [place] [address] Feb, [facility] [id number] [place] [address] Jan, [facility] [id number] [place] [address] Jan, [facility] [id number] [place] [address] Jan, [facility] [id number] [place] [address] Dec, [facility] [id number] [place] [address] Dec, [facility] [id number] [place] [address] Dec, [facility] [id number] [place] [address] Dec, [facility] [id number] [place] [address] Nov, [facility] [id number] [place] [address] Nov, [facility] [id number] [place] [address] Nov, [facility] [id number] [place] [address] October, [facility] [id number] [place] [address] October, [facility] [id number] [place] [address] October, [facility] [id number] [place] [address] Sep, [facility] [id number] [place] [address] Sep, [facility] [id number] [place] [address] Sep, [facility] [facility] [id number] [place] [address] 30 Aug, 2011 [facility] [id number] [place] [address] 15 Aug, 2011 [facility] [id number] [place] [address] Aug, [facility] [id number] [place] [address] Jul, [facility] [id number] [place] [address] Jun, [facility] [id number] [place] [address] Jun, [facility] [id number] [place] [address] May, [facility] [id number] [place] [address] May, [facility] [id number] [place] [address] May, [facility] [id number] [place] [address] May, [facility] [id number] [place] [address] Apr, [facility] [id number] [place] [address] Apr, [facility] [id number] [place] [address] Apr, [facility] [id number] [place] [address] Apr, [facility] [id number] [place] [address] Apr, [facility] [id number] [place] [address] Mar, [facility] [id number] [place] [address] Mar, [facility] [id number] [place] [address] Jan, [facility] [id number] [place] [address] May, [facility] [id number] [place] [address] Apr, [facility] [id number] [place] [address] Mar, [facility] [id number] [place] [address] Jun, [facility] [id number] [place] [address] Apr, [facility] [id number] [place] [address] Apr, IMMUNIZATIONS No Known Immunizations SOCIAL HISTORY Never Assessed REASON FOR VISIT PLAN OF CARE VITAL SIGNS MEDICATIONS Unknown Medications RESULTS No Results PROCEDURES No Known procedures INSTRUCTIONS MEDICATIONS ADMINISTERED No Known Medications MEDICAL (GENERAL) HISTORY Type Description Date Medical History seizures Surgical History No Surgical history information
--- OUTSIDE RECORDS SUMMARY | 2019-09-07 02:33 | XMS REPORT ---
Author Author Reymundo GONZALEZ [facility] Address [address] [place] [address] Care Team Providers Care [employer]obile Service Writer Name Role Phone IWONA GONZALEZ Unavailable PROBLEMS Type Condition ICD9-CM Code [id number] Code Onset Dates Condition S tatus SNOMED Code Problem Alcohol abuse F10.10 Active 672504 05 Problem Relationship dysfunction Z63.9 Activ e 649824920 Problem Impulse control disorder F63.9 Activ e 21300499 Problem Depressive disorder F32.9 Active 82861022 Problem Mild intellectual disabilities F70 Active 25192495 Problem Seasonal allergic rhinitis due to pollen J30.1 Active 29760284 ALLERGIES No Information ENCOUNTERS Encounter Location Date Diagnosis [place] [address] [address] Jul, [facility], [place] [address] [address] Jul, [place] [address] [address] May, [facility], [place] [address] [address] Apr, [facility], [place] [address] [address] Apr, Depressive disorder F32.9 ; Impulse cont rol disorder F63.9 and Mild intellectual disabilities F70 [facility], [place] [address] [address] Apr, [facility], [place] [address] [address] Apr, [facility], [place] [address] [address] Apr, [place] [id number] [place] [id number] [place] [address] Apr, Impulse control disorder F63.9 ; Depress douglas disorder F32.9 and Mild intellectual disabilities F70 [address] [place] [address] Mar, [facility], [place] [id number] [place] [address] Mar, [facility], [place] [address] [address] Mar, Encounter for immunization Z23 [facility], [place] [address] [address] Dec, [facility], [place] [address] [address] Dec, Seasonal allergic rhinitis due to pollen J30.1 [facility], [place] [address] [address] October, Depressive disorder F32.9 ; Impulse cont rol disorder F63.9 and Mild intellectual disabilities F70 [facility], [place] [address] [place] [id number] [place] [address] Jun, Impulse control disorder F63.9 ; Mild in tellectual disabilities F70 ; Relationship dysfunction Z63.9 and Depressive disorder F32.9 [facility], [place] [id number] [place] [address] Jun, [facility], [place] [address] [address] May, [facility], [place] [address] [address] May, [facility], [place] [address] [address] May, Encounter for immunization Z23 [facility], [place] [id number] [place] [address] Apr, [facility], [place] [address] [address] Apr, [facility], [place] [address] [address] Mar, [facility], [place] [address] [address] Mar, [facility], [place] [address] [address] Feb, Annual physical exam Z00.00 [facility], [place] [address] [address] Feb, Annual physical exam Z00.00 ; Mild intel lectual disabilities F70 and Encounter for immunization Z23 [facility], [place] [address] [address] 11 Feb, 2018 [facility], [place] [address] [address] Jan, [facility], [place] [address] [address] Jan, Impulse control disorder F63.9 ; Mild in tellectual disabilities F70 and Depressive disorder F32.9 [facility], [place] [address] [address] Nov, [facility], [place] [address] [address] Nov, [facility], [place] [address] [address] Nov, [facility], [place] [address] [address] Nov, [facility], [place] [address] [address] Nov, [facility], [place] [address] [address] Nov, Impulse control disorder F63.9 ; Depress douglas disorder F32.9 and Mild intellectual disabilities F70 [facility], [place] [address] [address] October, [facility], [place] [address] [address] October, Impulse control disorder F63.9 ; Depress douglas disorder F32.9 and Mild intellectual disabilities F70 [facility], [place] [address] [address] Sep, [facility], [place] [address] [address] Sep, Impulse control disorder F63.9 ; Depress douglas disorder F32.9 and Mild intellectual disabilities F70 [facility], [place] [address] [address] Sep, Impulse control disorder F63.9 ; Depress douglas disorder F32.9 and Mild intellectual disabilities F70 [facility], [place] [address] [address] Aug, [facility], [place] [address] [address] Aug, Impulse control disorder F63.9 ; Depress douglas disorder F32.9 and Mild intellectual disabilities F70 [facility] [address] [id number] Aug, Dental examination Z01.20 [facility], [place] [address] [address] Aug, [facility], [place] [address] [address] Aug, Impulse control disorder F63.9 ; Depress douglas disorder F32.9 and Mild intellectual disabilities F70 [facility], [place] [address] [address] 13 Jul, 2017 Impulse control disorder F63.9 ; Depress douglas disorder F32.9 and Mild intellectual disabilities F70 [facility] [address] [id number] Jul, Dental examination Z01.20 [facility], [place] [address] [place] [id number] Jul, [facility], [place] [address] [address] Jun, Impulse control disorder F63.9 ; Depress douglas disorder F32.9 and Mild intellectual disabilities F70 [facility], [place] [address] [address] Jun, Impulse control disorder F63.9 ; Depress douglas disorder F32.9 and Mild intellectual disabilities F70 [facility], [place] [address] [address] Jun, [facility], [place] [address] [address] May, [facility], [place] [address] [address] May, Impulse control disorder F63.9 ; Depress douglas disorder F32.9 and Mild intellectual disabilities F70 [place] [address] [address] Apr, Impulse control disorder F63.9 ; Depress douglas disorder F32.9 and Mild intellectual disabilities F70 [place] [address] [address] Apr, Seizures R56.9 [facility], [place] [address] [address] Apr, [facility], [place] [address] [address] Apr, Seizures R56.9 ; Tobacco abuse Z72.0 ; A lcohol abuse F10.10 and Encounter for immunization Z23 [facility], [place] [address] [address] 14 Apr, 2017 Impulse control disorder F63.9 ; Depress douglas disorder F32.9 and Mild intellectual disabilities F70 [facility], [place] [address] [address] Mar, Impulse control disorder F63.9 ; Depress douglas disorder F32.9 and Mild intellectual disabilities F70 [facility], [place] [address] [address] Mar, [facility], [place] [address] [address] Mar, Impulse control disorder F63.9 ; Depress douglas disorder F32.9 and Mild intellectual disabilities F70 [facility], [place] [address] [address] Mar, [facility], [place] [address] [address] Feb, Impulse control disorder F63.9 ; Depress douglas disorder F32.9 and Mild intellectual disabilities F70 [facility], [place] [address] [address] Feb, [facility], [place] [address] [address] Feb, Impulse control disorder F63.9 ; Depress douglas disorder F32.9 and Mild intellectual disabilities F70 [facility], [place] [address] [address] Jan, Annual physical exam Z00.00 ; Right hand pain M79.641 ; Impulse control disorder F63.9 ; Mild intellectual disabilities F70 and Depressive disorder F32.9 [facility], [place] [address] [address] Jan, Impulse control disorder F63.9 ; Depress douglas disorder F32.9 and Mild intellectual disabilities F70 [facility], [place] [address] [address] Jan, [facility], [place] [address] [address] Jan, Impulse control disorder F63.9 ; Depress douglas disorder F32.9 and Mild intellectual disabilities F70 [facility], [place] [address] [address] Jan, Impulse control disorder F63.9 ; Depress douglas disorder F32.9 and Mild intellectual disabilities F70 [facility], [place] [address] [address] 14 Dec, 2016 [facility], [place] [address] [address] Dec, Impulse control disorder F63.9 ; Depress douglas disorder F32.9 and Mild intellectual disabilities F70 [facility], [place] [address] [address] Nov, Impulse control disorder F63.9 ; Depress douglas disorder F32.9 and Mild intellectual disabilities F70 [facility], [place] [address] [address] Nov, [facility], [place] [address] [address] Nov, [facility], [place] [address] [address] Nov, [facility], [place] [address] [address] October, Impulse control disorder F63.9 ; Depress douglas disorder F32.9 and Mild intellectual disabilities F70 [facility], [place] [address] [address] October, [facility], [place] [address] [address] October, Impulse control disorder F63.9 ; Depress douglas disorder F32.9 and Mild intellectual disabilities F70 [facility], [place] [address] [address] Sep, [facility], [place] [address] [address] Sep, Impulse control disorder F63.9 ; Depress douglas disorder F32.9 and Mild intellectual disabilities F70 [facility], [place] [address] [address] Sep, Seasonal allergic rhinitis due to pollen J30.1 [facility], [place] [address] [address] Sep, [facility], [place] [address] [id number] [place] [address] Sep, [facility], [place] [address] [place] [id number] [place] [address] Sep, Impulse control disorder F63.9 ; Depress douglas disorder F32.9 and Mild intellectual disabilities F70 [facility], [place] [address] [place] [id number] [place] [address] Aug, Impulse control disorder F63.9 ; Depress douglas disorder F32.9 and Mild intellectual disabilities F70 [facility], [place] [address] [place] [address] [id number] [place] [address] Aug, [facility], [place] [address] [address] Aug, [facility], [place] [address] [place] [address] [id number] [place] [address] Jul, [facility], [place] [address] [place] [id number] [place] [address] Jul, Impulse control disorder F63.9 ; Depress douglas disorder F32.9 and Mild intellectual disabilities F70 [facility] [address] [id number] [place] [id number] 10 Jul, 2016 Dental examination Z01.20 [facility], [place] [address] [place] [address] [id number] [place] [address] Jul, Impulse control disorder F63.9 ; Depress douglas disorder F32.9 and Mild intellectual disabilities F70 [facility], [place] [address] [place] [address] [id number] [place] [address] Jul, [facility], [place] [address] [address] Jun, [facility], [place] [address] [address] Jun, Impulse control disorder F63.9 ; Depress douglas disorder F32.9 and Mild intellectual disabilities F70 [facility], [place] [address] [address] Jun, [facility], [place] [address] [address] Jun, [facility], [place] [address] [address] Jun, Impulse control disorder F63.9 ; Depress douglas disorder F32.9 and Mild intellectual disabilities F70 [facility], [place] [address] [address] May, Impulse control disorder F63.9 ; Depress douglas disorder F32.9 and Mild intellectual disabilities F70 [facility], [place] [address] [address] May, Annual physical exam Z00.00 ; Other fati sarah R53.83 ; Seizures R56.9 ; Mild intellectual disabilities F70 and Impulse control disorder F63.9 [facility], [place] [address] [address] May, [facility], [place] [address] [address] May, Impulse control disorder F63.9 ; Depress douglas disorder F32.9 and Mild intellectual disabilities F70 [facility] [address] [id number] [place] [id number] Apr, Encounter for dental examination Z01.20 [facility], [place] [address] [address] Apr, Impulse control disorder F63.9 ; Depress douglas disorder F32.9 and Mild intellectual disabilities F70 [facility], [place] [address] [address] Apr, [facility], [place] [address] [address] Mar, Impulse control disorder F63.9 ; Depress douglas disorder F32.9 and Mild intellectual disabilities F70 [facility], [place] [address] [address] Mar, Impulse control disorder F63.9 ; Depress douglas disorder F32.9 and Mild intellectual disabilities F70 [facility], [place] [address] [address] Mar, [facility], [place] [address] [address] Mar, [facility], [place] [address] [address] Feb, Impulse control disorder F63.9 ; Depress douglas disorder F32.9 and Mild intellectual disabilities F70 [facility], [place] [address] [address] Feb, Impulse control disorder F63.9 ; Depress douglas disorder F32.9 and Mild intellectual disabilities F70 [facility], [place] [address] [address] Feb, [facility], [place] [address] [address] Jan, Annual physical exam Z00.00 ; Impulse co ntrol disorder F63.9 ; Mild intellectual disabilities F70 ; Depressive disorder F32.9 and Seizures R56.9 [facility], [place] [address] [address] Jan, Impulse control disorder F63.9 ; Depress douglas disorder F32.9 and Mild intellectual disabilities F70 [facility], [place] [address] [address] Jan, [facility], [place] [address] [address] Jan, Impulse control disorder F63.9 ; Depress douglas disorder F32.9 and Mild intellectual disabilities F70 [facility], [place] [address] [address] Jan, [facility], [place] [address] [address] Jan, [facility], [place] [address] [address] Dec, Impulse control disorder F63.9 ; Depress douglas disorder F32.9 and Mild intellectual disabilities F70 [facility], [place] [address] [address] Dec, Impulse control disorder F63.9 ; Depress douglas disorder F32.9 and Mild intellectual disabilities F70 [facility], [place] [address] [address] Dec, [facility], [place] [address] [address] Dec, Depressive disorder F32.9 ; Impulse cont rol disorder F63.9 and Mild intellectual disabilities F70 [facility], [place] [address] [address] Nov, [facility], [place] [address] [address] Nov, Depressive disorder F32.9 ; Impulse cont rol disorder F63.9 and Mild intellectual disabilities F70 [facility], [place] [address] [address] Nov, [facility], [place] [address] [address] October, Depressive disorder F32.9 ; Impulse cont rol disorder F63.9 and Mild intellectual disabilities F70 [facility], [place] [address] [address] October, [facility], [place] [address] [address] October, [facility], [place] [address] [address] October, Depressive disorder F32.9 ; Impulse cont rol disorder F63.9 and Mild intellectual disabilities F70 [facility], [place] [address] [address] October, [facility], [place] [address] [address] Sep, [facility], [place] [address] [address] Sep, Depressive disorder F32.9 ; Impulse cont rol disorder F63.9 and Mild intellectual disabilities F70 [facility], [place] [address] [place] [id number] Sep, Depressive disorder F32.9 ; Impulse cont rol disorder F63.9 and Mild intellectual disabilities F70 [facility], [place] [address] [address] Sep, [facility], [place] [address] [address] Aug, [facility], [place] [address] [address] 24 Aug, 2015 Depressive disorder F32.9 ; Impulse cont rol disorder F63.9 and Mild intellectual disabilities F70 [place] [address] [address] Aug, Depressive disorder F32.9 ; Impulse cont rol disorder F63.9 and Mild intellectual disabilities F70 [facility] [address] [id number] Jul, Dental examination Z01.20 [facility], [place] [address] [address] Jul, [facility], [place] [address] [address] Jul, Depressive disorder F32.9 ; Impulse cont rol disorder F63.9 and Mild intellectual disabilities F70 [facility], [place] [address] [address] 05 Jul, 2015 Depressive disorder F32.9 ; Impulse cont rol disorder F63.9 and Mild intellectual disabilities F70 [facility], [place] [address] [address] 02 Jul, 2015 Depression screening Z13.89 ; 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, 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 and Screening for STD sexually transmitted disease Z11.3 [facility], [place] [id number] [place] [address] Jun, [facility], [place] [address] [address] Jun, Depressive disorder F32.9 ; Impulse cont rol disorder F63.9 and Mild intellectual disabilities F70 [facility], [place] [address] [address] Jun, Depressive disorder, not elsewhere class ified F32.9 ; Mild mental retardation F70 and Impulse control disorder F63.9 [facility], [place] [address] [address] Jun, Depressive disorder, not elsewhere class ified F32.9 ; Impulse control disorder F63.9 and Mild intellectual disabilities F70 [facility], [place] [address] [address] Jun, [facility] [address] [id number] Jun, Dental examination Z01.20 [facility], [place] [address] [address] May, Depressive disorder, not elsewhere class ified F32.9 ; Impulse control disorder F63.9 and Mild intellectual disabilities F70 [facility], [place] [address] [address] May, [facility], [place] [address] [address] May, [facility], [place] [address] [address] May, Depressive disorder, not elsewhere class ified F32.9 ; Impulse control disorder F63.9 and Mild intellectual disabilities F70 [facility], [place] [address] [address] May, Depressive disorder, not elsewhere class ified F32.9 ; Impulse control disorder F63.9 and Mild mental retardation F70 [facility], [place] [address] [address] Apr, Depressive disorder, not elsewhere class ified F32.9 ; Impulse control disorder F63.9 and Mild intellectual disabilities F70 [facility], [place] [address] [address] Apr, [facility], [place] [address] [address] Mar, Depressive disorder, not elsewhere class ified F32.9 ; Impulse control disorder F63.9 and Mild intellectual disabilities F70 [facility], [place] [address] [address] Mar, Depressive disorder, not elsewhere class ified F32.9 ; Impulse control disorder F63.9 and Mild intellectual disabilities F70 [facility], [place] [address] [address] Mar, [facility], [place] [address] [address] Mar, Encounter for immunization Z23 [facility], [place] [address] [address] Mar, Depressive disorder, not elsewhere class ified F32.9 ; Impulse control disorder F63.9 and Mild intellectual disabilities F70 [facility] [place] [address] [address] Feb, Depressive disorder, not elsewhere class ified 311 ; Impulse control disorder, unspecified 312.30 and Mild mental retardation 317 [facility], [place] [address] [address] Feb, [facility], [place] [address] [address] Feb, Depressive disorder, not elsewhere class ified 311 ; Impulse control disorder, unspecified 312.30 and Mild mental retardation 317 [facility], [place] [address] [address] Jan, Depressive disorder, not elsewhere class ified 311 ; Impulse control disorder, unspecified 312.30 and Mild mental retardation 317 [facility], [place] [address] [address] [place] [address] Jan, Depressive disorder, not elsewhere class ified 311 ; Impulse control disorder, unspecified 312.30 and Mild mental retardation 317 [facility], [place] [address] [address] Jan, [facility], [place] [address] [address] Jan, Depressive disorder, not elsewhere class ified 311 ; Impulse control disorder, unspecified 312.30 and Mild mental retardation 317 [facility], [place] [address] [address] Dec, Depressive disorder, not elsewhere class ified 311 ; Impulse control disorder, unspecified 312.30 and Mild mental retardation 317 [facility] [place] [address] [address] Dec, [facility] [address] [id number] [place] [id number] Dec, Dental examination V72.2 [place] [address] [address] Dec, Heat rash 705.1 ; Seizures 780.39 and Hi gh risk medication use V58.69 [facility], [place] [id number] [place] [address] Dec, [place] [address] [address] Dec, Depressive disorder, not elsewhere class ified 311 ; Impulse control disorder, unspecified 312.30 and Mild mental retardation 317 [facility], [place] [address] [address] Nov, Depressive disorder, not elsewhere class ified 311 ; Impulse control disorder, unspecified 312.30 and Mild mental retardation 317 [facility] [place] [address] [address] Nov, [facility] [facility], [place] [address] [address] Nov, Nicotine addiction 305.1 [facility], [place] [id number] [place] [address] 11 Nov, 2014 [facility], [place] [address] [address] 11 Nov, 2014 High risk medication use V58.69 [facility], [place] [id number] [place] [address] 10 Nov, 2014 High risk medication use V58.69 [facility], [place] [address] [address] 09 Nov, 2014 Depressive disorder, not elsewhere class ified 311 ; Impulse control disorder, unspecified 312.30 and Mild mental retardation 317 [facility], [place] [address] [address] Nov, Depressive disorder, not elsewhere class ified 311 ; 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 and Impulse control disorder, unspecified 312.30 [facility], [place] [id number] [place] [address] October, Depressive disorder, not elsewhere class ified 311 ; Impulse control disorder, unspecified 312.30 and Mild mental retardation 317 [facility], [place] [address] [address] October, [facility], [place] [address] [address] October, Depressive disorder, not elsewhere class ified 311 ; Impulse control disorder, unspecified 312.30 and Mild mental retardation 317 [facility], [place] [id number] [place] [address] October, [facility] [address] [id number] [place] [id number] October, Dental examination V72.2 [facility], [place] [id number] [place] [address] Sep, Depressive disorder, not elsewhere class ified 311 ; Impulse control disorder 312.30 and Mild mental retardation 317 [facility], [place] [address] [address] Sep, [facility] [address] [id number] [place] [address] Sep, [facility] [address] [id number] [place] [address] Aug, [facility] [address] [id number] [place] [address] Aug, [facility] [address] [id number] [place] [address] Aug, [facility] [address] [id number] [place] [address] Aug, [facility] [address] [id number] [place] [address] Aug, [facility] [address] [id number] [place] [address] Aug, [facility] [address] [id number] [place] [address] Aug, [facility] [address] [id number] [place] [address] Aug, [facility] [address] [id number] [place] [address] Jul, 2014 [facility] [address] [id number] [place] [address] Jul, 2014 [facility] [address] [id number] [place] [address] Jul, 2014 [facility] [address] [id number] [place] [address] Jul, 2014 [facility] [address] [id number] [place] [address] 16 Jul, 2014 [facility] [address] [id number] [place] [address] 16 Jul, 2014 [facility] [address] [id number] [place] [address] 16 Jul, 2014 [facility] [address] [id number] [place] [address] 16 Jul, 2014 [facility] [address] [facility] [id number] [place] [address] Jul, [facility] [address] [id number] [place] [address] Jul, [facility] [address] [id number] [place] [address] Jul, [facility] [address] [id number] [place] [address] Jul, [facility] [address] [id number] [place] [address] Jul, [facility] [address] [id number] [place] [address] Jul, [facility] [address] [id number] [place] [address] Jun, [facility] [address] [id number] [place] [address] Jun, [facility] [address] [id number] [place] [address] Jun, [facility] [address] [id number] [place] [address] Jun, [facility] [address] [id number] [place] [address] Jun, [facility] [address] [id number] [place] [address] Jun, [facility] [address] [id number] [place] [address] Jun, [facility] [address] [id number] [place] [address] Jun, [facility] [address] [id number] [place] [address] Jun, [facility] [address] [id number] [place] [address] Jun, [facility] [address] [id number] [place] [address] 15 Jun, 2014 [facility] [address] [id number] [place] [address] Jun, [facility] [address] [id number] [place] [address] 08 Jun, 2014 [facility] [address] [id number] [place] [address] 08 Jun, 2014 [facility] [address] [id number] [place] [address] 08 Jun, 2014 [facility] [address] [id number] [place] [address] Jun, [facility] [address] [id number] [place] [address] 08 Jun, 2014 [facility] [id number] [place] [address] Jun, [facility] [address] [id number] [place] [address] Jun, [facility] [address] [id number] [place] [address] Jun, [facility] [address] [id number] [place] [address] May, [facility] [address] [id number] [place] [address] May, [facility] [address] [id number] [place] [address] May, [facility] [address] [id number] [place] [address] May, [facility] [address] [id number] [place] [address] May, [facility] [address] [id number] [place] [address] Apr, [facility] [address] [id number] [place] [address] Apr, [facility] [address] [facility] [id number] [place] [address] Apr, [facility] [address] [id number] [place] [address] Apr, [facility] [address] [id number] [place] [address] Apr, [facility] [address] [id number] [place] [address] Apr, [facility] [address] [id number] [place] [address] Apr, [facility] [address] [id number] [place] [address] Apr, [facility] [address] [id number] [place] [address] Mar, [facility] [address] [id number] [place] [address] Mar, [facility] [address] [id number] [place] [address] Mar, [facility] [address] [id number] [place] [address] Mar, [facility] [address] [id number] [place] [address] Mar, [facility] [address] [id number] [place] [address] Mar, [facility] [address] [id number] [place] [address] Mar, [facility] [address] [id number] [place] [address] Mar, [facility] [address] [id number] [place] [address] Mar, [facility] [address] [id number] [place] [address] Mar, [facility] [address] [id number] [place] [address] 16 Mar, 2013 [facility] [address] [facility] [id number] [place] [address] 16 Mar, 2013 [facility] [address] [id number] [place] [address] 15 Mar, 2014 [facility] [address] [id number] [place] [address] 15 Mar, 2014 [facility] [address] [id number] [place] [address] Mar, 2013 [facility] [address] [id number] [place] [address] Mar, 2013 [facility] [address] [id number] [place] [address] Mar, [facility] [address] [id number] [place] [address] Mar, [facility] [address] [id number] [place] [address] Mar, [facility] [address] [id number] [place] [address] Mar, [facility] [address] [id number] [place] [address] 24 Feb, 2013 [facility] [address] [id number] [place] [address] 24 Feb, 2013 [facility] [address] [id number] [place] [address] 19 Feb, 2013 [facility] [address] [id number] [place] [address] 19 Sep, 2013 [facility] [address] [id number] [place] [address] 11 Feb, 2013 [facility] [address] [id number] [place] [address] 11 Sep, 2013 [facility] [address] [id number] [place] [address] Feb, [facility] [address] [facility] [id number] [place] [address] Feb, [facility] [address] [facility] [id number] [place] [address] Jan, [facility] [address] [facility] [id number] [place] [address] Jan, [facility] [address] [id number] [place] [address] Jan, [facility] [address] [facility] [id number] [place] [address] Jan, [facility] [address] [id number] [place] [address] Dec, [facility] [address] [id number] [place] [address] Dec, [facility] [address] [id number] [place] [address] Dec, [facility] [address] [id number] [place] [address] Dec, [facility] [address] [id number] [place] [address] Dec, [facility] [address] [id number] [place] [address] Dec, [facility] [address] [id number] [place] [address] Dec, [facility] [address] [id number] [place] [address] Dec, [facility] [address] [facility] [id number] [place] [address] Dec, [facility] [address] [facility] [id number] [place] [address] Dec, [facility] [address] [id number] [place] [address] Nov, [facility] [address] [id number] [place] [address] Nov, [facility] [address] [facility] [id number] [facility] [place] [address] Nov, [facility] [address] [facility] [id number] [facility] [place] [address] Nov, [facility] [address] [id number] [facility] [place] [address] Nov, [facility] [address] [facility] [id number] [facility] [place] [address] Nov, [facility] [address] [facility] [id number] [facility] [place] [address] Nov, [facility] [address] [id number] [place] [address] Nov, [facility] [address] [id number] [place] [address] Nov, [facility] [address] [id number] [place] [address] Nov, [facility] [address] [id number] [place] [address] Nov, [facility] [address] [id number] [place] [address] Nov, [facility] [address] [id number] [place] [address] October, [facility] [address] [id number] [place] [address] October, [facility] [address] [facility] [id number] [place] [address] October, [facility] [address] [id number] [place] [address] October, [facility] [address] [id number] [place] [address] October, [facility] [address] [id number] [place] [address] October, [facility] [address] [id number] [place] [address] October, [facility] [address] [facility] [id number] [place] [address] October, [facility] [address] [id number] [place] [address] October, [facility] [address] [id number] [place] [address] October, [facility] [address] [id number] [place] [address] Sep, [facility] [address] [id number] [place] [address] Sep, [facility] [address] [id number] [place] [address] Sep, [facility] [address] [id number] [place] [address] Sep, [facility] [address] [id number] [place] [address] Sep, [facility] [address] [id number] [place] [address] Sep, [facility] [address] [id number] [place] [address] Sep, [facility] [address] [id number] [place] [address] Sep, [facility] [address] [id number] [place] [address] Aug, [facility] [address] [id number] [place] [address] Aug, [facility] [address] [id number] [place] [address] Aug, [facility] [address] [id number] [place] [address] Aug, [facility] [address] [id number] [place] [address] Aug, [facility] [address] [facility] [id number] [place] [address] Aug, [facility] [address] [facility] [id number] [place] [address] Aug, [facility] [address] [facility] [id number] [place] [address] Aug, [facility] [address] [id number] [place] [address] Jul, [facility] [address] [facility] [id number] [facility] [place] [address] Jul, [facility] [address] [id number] [place] [address] Jul, [facility] [address] [id number] [place] [address] Jul, [facility] [address] [id number] [place] [address] Jul, [facility] [address] [id number] [place] [address] Jul, [facility] [address] [id number] [place] [address] Jul, [facility] [address] [id number] [place] [address] Jul, [facility] [address] [id number] [place] [address] Jun, [facility] [address] [id number] [place] [address] Jun, [facility] [address] [id number] [place] [address] Jun, [facility] [address] [id number] [place] [address] Jun, [facility] [address] [id number] [place] [address] Jun, [facility] [address] [id number] [place] [address] 16 Jun, 2013 [facility] [address] [id number] [place] [address] Jun, [facility] [address] [id number] [place] [address] Jun, [facility] [address] [id number] [place] [address] May, [facility] [address] [id number] [place] [address] May, [facility] [address] [id number] [place] [address] May, [facility] [address] [id number] [place] [address] May, [facility] [address] [id number] [place] [address] May, [facility] [address] [id number] [place] [address] May, [facility] [address] [id number] [place] [address] Apr, [facility] [address] [id number] [place] [address] Apr, [facility] [address] [id number] [place] [address] Mar, [facility] [address] [id number] [place] [address] Mar, [facility] [address] [id number] [place] [address] Mar, [facility] [id number] [place] [address] Mar, [facility] [address] [id number] [place] [address] Mar, [facility] [address] [id number] [place] [address] Feb, [facility] [address] [id number] [place] [address] Jan, [facility] [address] [id number] [place] [address] Jan, [facility] [address] [id number] [place] [address] Jan, [facility] [address] [id number] [place] [address] Jan, [facility] [address] [id number] [place] [address] Jan, [facility] [address] [id number] [place] [address] Dec, [facility] [address] [id number] [place] [address] Dec, [facility] [address] [id number] [place] [address] Dec, [facility] [address] [id number] [place] [address] Dec, [facility] [address] [id number] [place] [address] Nov, [facility] [address] [id number] [place] [address] Nov, [facility] [address] [id number] [place] [address] Nov, [facility] [address] [id number] [place] [address] October, [facility] [address] [id number] [place] [address] October, [facility] [address] [id number] [place] [address] October, [facility] [address] [id number] [place] [address] Sep, [facility] [address] [id number] [place] [address] Sep, [facility] [address] [facility] [id number] [facility] [place] [address] Aug, [facility] [address] [id number] [facility] [place] [address] Aug, [facility] [address] [id number] [facility] [place] [address] Jul, [facility] [address] [id number] [facility] [place] [address] Jul, [facility] [address] [id number] [facility] [place] [address] Jul, [facility] [address] [id number] [facility] [place] [address] Jul, [facility] [address] [id number] [place] [address] Jul, [facility] [address] [id number] [place] [address] Jun, [facility] [address] [id number] [facility] [place] [address] May, [facility] [address] [id number] [place] [address] 31 May, 2012 [facility] [address] [id number] [place] [address] 14 May, 2012 [facility] [address] [id number] [place] [address] 14 May, 2012 [facility] [address] [id number] [place] [address] 13 May, 2012 [facility] [address] [id number] [place] [address] May, [facility] [address] [id number] [place] [address] 10 May, 2012 [facility] [address] [id number] [place] [address] 10 May, 2012 [facility] [address] [id number] [place] [address] Apr, [facility] [address] [id number] [place] [address] Apr, [facility] [address] [id number] [place] [address] Apr, [facility] [address] [id number] [place] [address] Apr, [facility] [address] [id number] [place] [address] Mar, [facility] [address] [id number] [place] [address] Mar, [facility] [address] [id number] [place] [address] Mar, [facility] [address] [id number] [place] [address] Feb, [facility] [address] [id number] [place] [address] Feb, [facility] [address] [id number] [place] [address] Jan, [facility] [address] [id number] [place] [address] Jan, [facility] [address] [id number] [place] [address] Jan, [facility] [address] [id number] [place] [address] Dec, [facility] [address] [id number] [place] [address] Dec, [facility] [address] [id number] [place] [address] Dec, [facility] [address] [id number] [place] [address] Dec, [facility] [address] [id number] [place] [address] Nov, [facility] [address] [id number] [place] [address] Nov, [facility] [address] [id number] [place] [address] Nov, [facility] [address] [id number] [place] [address] October, [facility] [address] [id number] [place] [address] October, [facility] [address] [id number] [place] [address] October, [facility] [address] [id number] [place] [address] Sep, [facility] [address] [id number] [place] [address] Sep, [facility] [address] [id number] [place] [address] Sep, [facility] [address] [id number] [place] [address] Aug, [facility] [address] [id number] [place] [address] 15 Aug, 2011 [facility] [address] [id number] [place] [address] Aug, [facility] [address] [id number] [place] [address] Jul, [facility] [address] [id number] [place] [address] Jun, [facility] [address] [id number] [place] [address] Jun, [facility] [address] [id number] [place] [address] May, [facility] [address] [id number] [place] [address] May, [facility] [id number] [place] [address] 16 May, 2011 [facility], [place] [id number] [place] [address] May, [facility], [place] [id number] [place] [address] Apr, [facility], [place] [id number] [place] [address] Apr, [facility], [place] [address] [address] Apr, [facility], [place] [address] [address] Apr, [facility], [place] [address] [address] Apr, [facility], [place] [address] [address] Mar, [facility], [place] [address] [address] Mar, [facility], [place] [id number] [place] [address] Jan, [facility], [place] [address] [address] May, [facility], [place] [id number] [place] [address] Apr, [facility], [place] [address] [address] Mar, [facility], [place] [id number] [place] [address] Jun, [facility], [place] [address] [address] Apr, [facility], [place] [address] [address] Apr, IMMUNIZATIONS No Known Immunizations SOCIAL HISTORY Never Assessed REASON FOR VISIT PLAN OF CARE VITAL SIGNS MEDICATIONS Unknown Medications RESULTS No Results PROCEDURES No Known procedures INSTRUCTIONS MEDICATIONS ADMINISTERED No Known Medications MEDICAL (GENERAL) HISTORY Type Description Date Medical History seizures Surgical History No Surgical history information
--- OUTSIDE RECORDS SUMMARY | 2019-09-07 02:34 | XMS REPORT ---
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 Activ e 528008426 Problem Impulse control disorder F63.9 Activ e 52461202 Problem Depressive disorder F32.9 Active 88816442 Problem Mild intellectual disabilities F70 Active 39407496 Problem Seasonal allergic rhinitis due to pollen J30.1 Active 57283312 ALLERGIES No Information ENCOUNTERS Encounter Location Date Diagnosis [place] [address] [address] Jul, [facility] [address] [address] Jul, [facility] [address] [address] May, [facility] [address] [address] Apr, [facility] [address] [address] Apr, Depressive disorder F32.9 ; Impulse cont rol disorder F63.9 and Mild intellectual disabilities F70 [facility] [address] [address] Apr, [facility] [address] [address] Apr, [facility] [address] [address] Apr, [facility] [address] [address] Apr, Impulse control disorder F63.9 ; Depress douglas disorder F32.9 and Mild intellectual disabilities F70 [facility] [address] [place] [address] Mar, [facility] [address] [place] [id number] [place] [address] Mar, [facility] [address] [address] Mar, Encounter for immunization Z23 [facility] [address] [address] Dec, [facility] [address] [address] Dec, Seasonal allergic rhinitis due to pollen J30.1 [facility] [address] [address] October, Depressive disorder F32.9 ; Impulse cont rol disorder F63.9 and Mild intellectual disabilities F70 [facility] [address] [address] Jun, Impulse control disorder F63.9 ; Mild in tellectual disabilities F70 ; Relationship dysfunction Z63.9 and Depressive disorder F32.9 [facility] [id number] [place] [address] Jun, [facility] [address] [address] May, [facility] [address] [address] May, [facility] [address] [address] May, Encounter for immunization Z23 [facility] [address] [address] Apr, [facility] [address] [address] Apr, [facility] [address] [address] Mar, [facility] [address] [address] Mar, [facility] [address] [address] Feb, Annual physical exam Z00.00 [facility] [address] [address] 25 Feb, 2018 Annual physical exam Z00.00 ; Mild intel lectual disabilities F70 and Encounter for immunization Z23 [facility] [address] [address] 11 Feb, 2018 [facility] [address] [address] Jan, [facility] [address] [address] Jan, Impulse control disorder F63.9 ; Mild in tellectual disabilities F70 and Depressive disorder F32.9 [facility] [address] [address] Nov, [facility] [address] [address] Nov, [facility] [address] [address] Nov, [facility] [address] [address] Nov, [facility] [address] [address] Nov, [facility] [address] [address] 05 Nov, 2017 Impulse control disorder F63.9 ; Depress douglas disorder F32.9 and Mild intellectual disabilities F70 [facility] [address] [address] October, [facility] [address] [address] October, Impulse control disorder F63.9 ; Depress douglas disorder F32.9 and Mild intellectual disabilities F70 [facility] [address] [address] Sep, [facility] [address] [address] Sep, Impulse control disorder F63.9 ; Depress douglas disorder F32.9 and Mild intellectual disabilities F70 [facility] [address] [address] Sep, Impulse control disorder F63.9 ; Depress douglas disorder F32.9 and Mild intellectual disabilities F70 [facility] [address] [address] Aug, [facility] [address] [address] Aug, Impulse control disorder F63.9 ; Depress douglas disorder F32.9 and Mild intellectual disabilities F70 [facility] [address] [id number] Aug, Dental examination Z01.20 [facility] [address] [address] Aug, [facility] [address] [address] Aug, Impulse control disorder F63.9 ; Depress douglas disorder F32.9 and Mild intellectual disabilities F70 [facility] [address] [address] 13 Jul, 2017 Impulse control disorder F63.9 ; Depress douglas disorder F32.9 and Mild intellectual disabilities F70 [facility] [address] [id number] Jul, Dental examination Z01.20 [facility] [address] [address] 02 Jul, 2017 [facility] [address] [address] Jun, Impulse control disorder F63.9 ; Depress douglas disorder F32.9 and Mild intellectual disabilities F70 [facility] [address] [place] [id number] 08 Jun, 2017 Impulse control disorder F63.9 ; Depress douglas disorder F32.9 and Mild intellectual disabilities F70 [facility] [address] [address] Jun, [facility] [address] [address] May, [facility] [address] [address] May, Impulse control disorder F63.9 ; Depress douglas disorder F32.9 and Mild intellectual disabilities F70 [place] [address] [address] Apr, Impulse control disorder F63.9 ; Depress douglas disorder F32.9 and Mild intellectual disabilities F70 [place] [address] [address] Apr, Seizures R56.9 [place] [address] [address] Apr, [facility] [address] [address] Apr, Seizures R56.9 ; Tobacco abuse Z72.0 ; A lcohol abuse F10.10 and Encounter for immunization Z23 [facility] [address] [address] 14 Apr, 2017 Impulse control disorder F63.9 ; Depress douglas disorder F32.9 and Mild intellectual disabilities F70 [facility] [address] [place] [id number] Mar, Impulse control disorder F63.9 ; Depress douglas disorder F32.9 and Mild intellectual disabilities F70 [facility] [address] [address] Mar, [facility] [address] [address] Mar, Impulse control disorder F63.9 ; Depress douglas disorder F32.9 and Mild intellectual disabilities F70 [facility] [address] [address] Mar, [facility] [address] [address] Feb, Impulse control disorder F63.9 ; Depress douglas disorder F32.9 and Mild intellectual disabilities F70 [facility] [address] [address] Feb, [facility] [address] [address] Feb, Impulse control disorder F63.9 ; Depress douglas disorder F32.9 and Mild intellectual disabilities F70 [facility] [address] [address] Jan, Annual physical exam Z00.00 ; Right hand pain M79.641 ; Impulse control disorder F63.9 ; Mild intellectual disabilities F70 and Depressive disorder F32.9 [facility] [address] [address] Jan, Impulse control disorder F63.9 ; Depress douglas disorder F32.9 and Mild intellectual disabilities F70 [facility] [address] [address] Jan, [facility] [address] [address] Jan, Impulse control disorder F63.9 ; Depress douglas disorder F32.9 and Mild intellectual disabilities F70 [facility] [address] [address] Jan, Impulse control disorder F63.9 ; Depress douglas disorder F32.9 and Mild intellectual disabilities F70 [facility] [address] [address] Dec, [facility] [address] [address] Dec, Impulse control disorder F63.9 ; Depress douglas disorder F32.9 and Mild intellectual disabilities F70 [facility] [address] [address] Nov, Impulse control disorder F63.9 ; Depress douglas disorder F32.9 and Mild intellectual disabilities F70 [facility] [address] [address] Nov, [facility] [address] [address] Nov, [facility] [address] [address] Nov, [facility] [address] [address] October, Impulse control disorder F63.9 ; Depress douglas disorder F32.9 and Mild intellectual disabilities F70 [facility] [address] [address] October, [facility] [address] [address] October, Impulse control disorder F63.9 ; Depress douglas disorder F32.9 and Mild intellectual disabilities F70 [facility] [address] [address] Sep, [facility] [address] [address] Sep, Impulse control disorder F63.9 ; Depress douglas disorder F32.9 and Mild intellectual disabilities F70 [facility] [address] [address] Sep, Seasonal allergic rhinitis due to pollen J30.1 [facility] [address] [address] Sep, [facility] [address] [address] Sep, [facility] [address] [address] Sep, Impulse control disorder F63.9 ; Depress douglas disorder F32.9 and Mild intellectual disabilities F70 [facility] [address] [place] [address] [address] [place] [address] Aug, Impulse control disorder F63.9 ; Depress douglas disorder F32.9 and Mild intellectual disabilities F70 [facility] [address] [address] Aug, [facility] [address] [address] Aug, [facility] [address] [address] Jul, [facility] [address] [address] Jul, Impulse control disorder F63.9 ; Depress douglas disorder F32.9 and Mild intellectual disabilities F70 [facility] [address] [place] [id number] 10 Jul, 2016 Dental examination Z01.20 [facility] [address] [place] [address] 06 Jul, 2016 Impulse control disorder F63.9 ; Depress douglas disorder F32.9 and Mild intellectual disabilities F70 [facility] [address] [place] [address] Jul, [facility] [address] [address] Jun, [facility] [address] [address] Jun, Impulse control disorder F63.9 ; Depress douglas disorder F32.9 and Mild intellectual disabilities F70 [facility] [address] [address] Jun, [facility] [address] [address] Jun, [facility] [address] [address] Jun, Impulse control disorder F63.9 ; Depress douglas disorder F32.9 and Mild intellectual disabilities F70 [facility] [address] [address] May, Impulse control disorder F63.9 ; Depress douglas disorder F32.9 and Mild intellectual disabilities F70 [facility] [address] [address] 15 May, 2016 Annual physical exam Z00.00 ; Other fati sarah R53.83 ; Seizures R56.9 ; Mild intellectual disabilities F70 and Impulse control disorder F63.9 [facility] [address] [address] May, [facility] [address] [address] May, Impulse control disorder F63.9 ; Depress douglas disorder F32.9 and Mild intellectual disabilities F70 [facility] [address] [address] [address] [place] [id number] 30 Apr, 2016 Encounter for dental examination Z01.20 [facility] [address] [address] 08 Apr, 2016 Impulse control disorder F63.9 ; Depress douglas disorder F32.9 and Mild intellectual disabilities F70 [facility] [address] [address] Apr, [facility] [address] [address] Mar, Impulse control disorder F63.9 ; Depress douglas disorder F32.9 and Mild intellectual disabilities F70 [facility] [address] [address] Mar, Impulse control disorder F63.9 ; Depress douglas disorder F32.9 and Mild intellectual disabilities F70 [place] [address] [facility] [place] [address] Mar, [facility] [address] [address] Mar, [facility] [address] [id number] [place] [address] Feb, Impulse control disorder F63.9 ; Depress douglas disorder F32.9 and Mild intellectual disabilities F70 [facility] [address] [address] Feb, Impulse control disorder F63.9 ; Depress douglas disorder F32.9 and Mild intellectual disabilities F70 [facility] [address] [place] [id number] [place] [address] Feb, [facility] [id number] [place] [address] Jan, Annual physical exam Z00.00 ; Impulse co ntrol disorder F63.9 ; Mild intellectual disabilities F70 ; Depressive disorder F32.9 and Seizures R56.9 [facility] [id number] [place] [address] Jan, Impulse control disorder F63.9 ; Depress douglas disorder F32.9 and Mild intellectual disabilities F70 [facility] [id number] [place] [address] Jan, [facility] [address] [address] Jan, Impulse control disorder F63.9 ; Depress douglas disorder F32.9 and Mild intellectual disabilities F70 [facility] [id number] [place] [address] Jan, [facility] [address] [place] [address] Jan, [facility] [address] [facility] [place] [address] Dec, Impulse control disorder F63.9 ; Depress douglas disorder F32.9 and Mild intellectual disabilities F70 [facility] [address] [address] Dec, Impulse control disorder F63.9 ; Depress douglas disorder F32.9 and Mild intellectual disabilities F70 [facility] [address] [address] Dec, [facility] [address] [address] Dec, Depressive disorder F32.9 ; Impulse cont rol disorder F63.9 and Mild intellectual disabilities F70 [facility] [address] [address] Nov, [facility] [address] [address] Nov, Depressive disorder F32.9 ; Impulse cont rol disorder F63.9 and Mild intellectual disabilities F70 [facility] [address] [address] Nov, [facility] [address] [address] October, Depressive disorder F32.9 ; Impulse cont rol disorder F63.9 and Mild intellectual disabilities F70 [facility] [address] [address] October, [facility] [address] [address] October, [facility] [address] [address] October, Depressive disorder F32.9 ; Impulse cont rol disorder F63.9 and Mild intellectual disabilities F70 [facility] [address] [address] October, [facility] [address] [address] Sep, [facility] [address] [address] Sep, Depressive disorder F32.9 ; Impulse cont rol disorder F63.9 and Mild intellectual disabilities F70 [facility] [address] [address] Sep, Depressive disorder F32.9 ; Impulse cont rol disorder F63.9 and Mild intellectual disabilities F70 [facility] [address] [address] Sep, [facility] [address] [address] Aug, [facility] [address] [address] Aug, Depressive disorder F32.9 ; Impulse cont rol disorder F63.9 and Mild intellectual disabilities F70 [facility] [address] [address] Aug, Depressive disorder F32.9 ; Impulse cont rol disorder F63.9 and Mild intellectual disabilities F70 [facility] [address] [place] [id number] Jul, Dental examination Z01.20 [facility] [address] [address] Jul, [facility] [address] [address] Jul, Depressive disorder F32.9 ; Impulse cont rol disorder F63.9 and Mild intellectual disabilities F70 [facility] [address] [address] Jul, Depressive disorder F32.9 ; Impulse cont rol disorder F63.9 and Mild intellectual disabilities F70 [facility] [address] [address] 02 Jul, 2015 Depression screening Z13.89 ; Drug juliae wm, 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 and Screening for STD sexually transmitted disease Z11.3 [facility] [address] [address] Jun, [place] [address] [address] Jun, Depressive disorder F32.9 ; Impulse cont rol disorder F63.9 and Mild intellectual disabilities F70 [facility] [address] [place] [address] Jun, Depressive disorder, not elsewhere class ified F32.9 ; Mild mental retardation F70 and Impulse control disorder F63.9 [facility] [address] [place] [address] Jun, Depressive disorder, not elsewhere class ified F32.9 ; Impulse control disorder F63.9 and Mild intellectual disabilities F70 [facility] [address] [address] Jun, [facility] [address] [id number] Jun, Dental examination Z01.20 [facility] [address] [address] May, Depressive disorder, not elsewhere class ified F32.9 ; Impulse control disorder F63.9 and Mild intellectual disabilities F70 [facility] [address] [address] May, [facility] [address] [place] [address] May, [facility] [address] [place] [address] May, Depressive disorder, not elsewhere class ified F32.9 ; Impulse control disorder F63.9 and Mild intellectual disabilities F70 [facility] [address] [address] May, Depressive disorder, not elsewhere class ified F32.9 ; Impulse control disorder F63.9 and Mild mental retardation F70 [facility] [address] [address] Apr, Depressive disorder, not elsewhere class ified F32.9 ; Impulse control disorder F63.9 and Mild intellectual disabilities F70 [facility] [address] [address] Apr, [facility] [address] [address] Mar, Depressive disorder, not elsewhere class ified F32.9 ; Impulse control disorder F63.9 and Mild intellectual disabilities F70 [facility] [address] [address] Mar, Depressive disorder, not elsewhere class ified F32.9 ; Impulse control disorder F63.9 and Mild intellectual disabilities F70 [facility] [address] [address] Mar, [facility] [address] [address] Mar, Encounter for immunization Z23 [facility] [address] [address] Mar, Depressive disorder, not elsewhere class ified F32.9 ; Impulse control disorder F63.9 and Mild intellectual disabilities F70 [facility] [address] [address] Feb, Depressive disorder, not elsewhere class ified 311 ; Impulse control disorder, unspecified 312.30 and Mild mental retardation 317 [facility] [address] [address] Feb, [facility] [address] [address] Feb, Depressive disorder, not elsewhere class ified 311 ; Impulse control disorder, unspecified 312.30 and Mild mental retardation 317 [facility] [address] [address] Jan, Depressive disorder, not elsewhere class ified 311 ; Impulse control disorder, unspecified 312.30 and Mild mental retardation 317 [facility] [address] [address] Jan, Depressive disorder, not elsewhere class ified 311 ; Impulse control disorder, unspecified 312.30 and Mild mental retardation 317 [facility] [address] [place] [address] Jan, [facility] [address] [address] Jan, Depressive disorder, not elsewhere class ified 311 ; Impulse control disorder, unspecified 312.30 and Mild mental retardation 317 [facility] [address] [address] Dec, Depressive disorder, not elsewhere class ified 311 ; Impulse control disorder, unspecified 312.30 and Mild mental retardation 317 [facility] [address] [address] Dec, [facility] [address] [facility] [place] [id number] Dec, Dental examination V72.2 [facility] [address] [address] Dec, Heat rash 705.1 ; Seizures 780.39 and Hi gh risk medication use V58.69 [facility] [address] [place] [address] Dec, [facility] [address] [address] Dec, Depressive disorder, not elsewhere class ified 311 ; Impulse control disorder, unspecified 312.30 and Mild mental retardation 317 [facility] [address] [place] [address] Nov, Depressive disorder, not elsewhere class ified 311 ; Impulse control disorder, unspecified 312.30 and Mild mental retardation 317 [facility] [address] [address] Nov, [facility] [address] [address] Nov, Nicotine addiction 305.1 [facility] [address] [address] Nov, [facility] [id number] [place] [address] Nov, High risk medication use V58.69 [facility] [address] [place] [address] 10 Nov, 2014 High risk medication use V58.69 [facility] [id number] [place] [address] Nov, Depressive disorder, not elsewhere class ified 311 ; Impulse control disorder, unspecified 312.30 and Mild mental retardation 317 [facility] [address] [place] [address] Nov, Depressive disorder, not elsewhere class ified 311 ; 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 and Impulse control disorder, unspecified 312.30 [facility] [id number] [place] [address] October, Depressive disorder, not elsewhere class ified 311 ; Impulse control disorder, unspecified 312.30 and Mild mental retardation 317 [facility] [address] [place] [address] October, [facility] [address] [place] [address] October, Depressive disorder, not elsewhere class ified 311 ; Impulse control disorder, unspecified 312.30 and Mild mental retardation 317 [facility] [id number] [place] [address] October, [facility] [address] [facility] [place] [id number] October, Dental examination V72.2 [facility] [address] [place] [address] Sep, Depressive disorder, not elsewhere class ified 311 ; Impulse control disorder 312.30 and Mild mental retardation 317 [facility] [address] [place] [address] Sep, [facility] [address] [address] Sep, [facility] [address] [id number] [place] [address] Aug, [facility] [address] [id number] [place] [address] Aug, [facility] [address] [id number] [place] [address] Aug, [facility] [address] [id number] [place] [address] Aug, [facility] [address] [id number] [place] [address] Aug, [facility] [address] [id number] [place] [address] Aug, [facility] [address] [id number] [place] [address] Aug, [facility] [address] [id number] [place] [address] Aug, [facility] [address] [id number] [place] [address] Jul, 2014 [facility] [address] [id number] [place] [address] Jul, 2014 [facility] [address] [id number] [place] [address] Jul, 2014 [facility] [address] [id number] [place] [address] Jul, 2014 [facility] [address] [id number] [place] [address] 16 Jul, 2014 [facility] [address] [id number] [place] [address] Jul, 2014 [facility] [address] [id number] [place] [address] 16 Jul, 2014 [facility] [address] [id number] [place] [address] 16 Jul, 2014 [facility] [address] [id number] [place] [address] Jul, [facility] [address] [id number] [place] [address] Jul, [facility] [address] [id number] [place] [address] Jul, [facility] [address] [id number] [place] [address] Jul, [facility] [address] [id number] [place] [address] Jul, [facility] [address] [id number] [place] [address] Jul, [facility] [address] [id number] [place] [address] Jun, [facility] [address] [id number] [place] [address] Jun, [facility] [address] [id number] [place] [address] Jun, [facility] [address] [id number] [place] [address] Jun, [facility] [address] [id number] [place] [address] Jun, [facility] [address] [id number] [place] [address] Jun, [facility] [address] [id number] [place] [address] Jun, [facility] [address] [id number] [place] [address] Jun, [facility] [address] [id number] [place] [address] Jun, [facility] [address] [id number] [place] [address] Jun, [facility] [address] [id number] [place] [address] Jun, [facility] [address] [id number] [place] [address] 15 Jun, 2014 [facility] [address] [id number] [place] [address] Jun, [facility] [address] [id number] [place] [address] 08 Jun, 2014 [facility] [address] [id number] [place] [address] 08 Jun, 2014 [facility] [address] [id number] [place] [address] 08 Jun, 2014 [facility] [address] [id number] [place] [address] Jun, [facility] [address] [id number] [place] [address] Jun, [facility] [id number] [place] [address] Jun, [facility] [address] [id number] [place] [address] Jun, [facility] [address] [id number] [place] [address] May, [facility] [address] [id number] [place] [address] May, [facility] [address] [id number] [place] [address] May, [facility] [address] [id number] [place] [address] May, [facility] [address] [id number] [place] [address] May, [facility] [address] [id number] [place] [address] Apr, [facility] [address] [id number] [place] [address] Apr, [facility] [address] [id number] [place] [address] Apr, [facility] [address] [facility] [id number] [place] [address] Apr, [facility] [address] [facility] [id number] [place] [address] Apr, [facility] [address] [id number] [place] [address] Apr, [facility] [address] [id number] [place] [address] Apr, [facility] [address] [facility] [id number] [place] [address] Apr, [facility] [address] [id number] [place] [address] Mar, [facility] [address] [id number] [place] [address] Mar, [facility] [address] [id number] [place] [address] Mar, [facility] [address] [id number] [place] [address] Mar, [facility] [address] [id number] [place] [address] Mar, [facility] [address] [id number] [place] [address] Mar, [facility] [address] [id number] [place] [address] Mar, [facility] [address] [facility] [id number] [place] [address] Mar, [facility] [address] [id number] [place] [address] Mar, [facility] [address] [id number] [place] [address] Mar, [facility] [address] [id number] [place] [address] Mar, [facility] [address] [facility] [id number] [place] [address] 16 Mar, 2013 [facility] [address] [facility] [id number] [place] [address] 15 Mar, 2014 [facility] [address] [id number] [place] [address] 15 Mar, 2013 [facility] [address] [id number] [place] [address] Mar, 2013 [facility] [address] [id number] [place] [address] Mar, 2013 [facility] [address] [id number] [place] [address] Mar, 2013 [facility] [address] [id number] [place] [address] Mar, 2013 [facility] [address] [id number] [place] [address] Mar, [facility] [address] [id number] [place] [address] Mar, [facility] [address] [id number] [place] [address] 24 Feb, 2013 [facility] [address] [id number] [place] [address] 24 Feb, 2013 [facility] [address] [id number] [place] [address] 19 Feb, 2013 [facility] [address] [id number] [place] [address] 19 Sep, 2013 [facility] [address] [id number] [place] [address] 11 Sep, 2013 [facility] [address] [id number] [place] [address] 11 Sep, 2013 [facility] [address] [id number] [place] [address] 05 Sep, 2013 [facility] [address] [id number] [place] [address] Feb, [facility] [address] [facility] [id number] [place] [address] Jan, [facility] [address] [facility] [id number] [place] [address] Jan, [facility] [address] [id number] [place] [address] Jan, [facility] [address] [id number] [place] [address] Jan, [facility] [address] [facility] [id number] [place] [address] Dec, [facility] [address] [id number] [place] [address] Dec, [facility] [address] [id number] [place] [address] Dec, [facility] [address] [id number] [place] [address] Dec, [facility] [address] [id number] [place] [address] Dec, [facility] [address] [id number] [place] [address] Dec, [facility] [address] [id number] [place] [address] Dec, [facility] [address] [id number] [place] [address] Dec, [facility] [address] [id number] [place] [address] Dec, [facility] [address] [id number] [place] [address] Dec, [facility] [address] [id number] [place] [address] Nov, [facility] [address] [id number] [place] [address] Nov, [facility] [address] [id number] [place] [address] Nov, [facility] [address] [facility] [id number] [facility] [place] [address] Nov, [facility] [address] [facility] [id number] [facility] [place] [address] Nov, [facility] [address] [id number] [facility] [place] [address] Nov, [facility] [address] [facility] [id number] [facility] [place] [address] Nov, [facility] [address] [facility] [id number] [facility] [place] [address] Nov, [facility] [address] [id number] [facility] [place] [address] Nov, [facility] [address] [id number] [place] [address] Nov, [facility] [address] [id number] [place] [address] Nov, [facility] [address] [facility] [id number] [facility] [place] [address] Nov, [facility] [address] [id number] [place] [address] October, [facility] [address] [id number] [place] [address] October, [facility] [address] [id number] [place] [address] October, [facility] [address] [facility] [id number] [facility] [place] [address] October, [facility] [address] [id number] [place] [address] October, [facility] [address] [facility] [id number] [place] [address] October, [facility] [address] [id number] [place] [address] October, [facility] [address] [id number] [place] [address] October, [facility] [address] [id number] [place] [address] October, [facility] [address] [id number] [place] [address] October, [facility] [address] [id number] [place] [address] Sep, [facility] [address] [id number] [place] [address] Sep, [facility] [address] [id number] [place] [address] Sep, [facility] [address] [id number] [place] [address] Sep, [facility] [address] [id number] [place] [address] Sep, [facility] [address] [id number] [place] [address] Sep, [facility] [address] [id number] [place] [address] Sep, [facility] [address] [id number] [place] [address] Sep, [facility] [address] [id number] [place] [address] Aug, [facility] [address] [id number] [place] [address] Aug, [facility] [address] [id number] [place] [address] Aug, [facility] [address] [id number] [place] [address] Aug, [facility] [address] [id number] [place] [address] Aug, [facility] [address] [id number] [place] [address] Aug, [facility] [address] [facility] [id number] [place] [address] Aug, [facility] [address] [facility] [id number] [place] [address] Aug, [facility] [address] [facility] [id number] [place] [address] Jul, [facility] [address] [id number] [place] [address] Jul, [facility] [address] [facility] [id number] [place] [address] Jul, [facility] [address] [id number] [place] [address] Jul, [facility] [address] [id number] [place] [address] Jul, [facility] [address] [id number] [place] [address] Jul, [facility] [address] [id number] [place] [address] Jul, [facility] [address] [id number] [place] [address] Jul, [facility] [address] [id number] [place] [address] Jun, [facility] [address] [id number] [place] [address] Jun, [facility] [address] [id number] [place] [address] Jun, [facility] [address] [id number] [place] [address] Jun, [facility] [address] [id number] [place] [address] Jun, [facility] [address] [id number] [place] [address] Jun, [facility] [address] [id number] [place] [address] Jun, [facility] [address] [id number] [place] [address] Jun, [facility] [address] [id number] [place] [address] May, [facility] [address] [id number] [place] [address] May, [facility] [address] [id number] [place] [address] May, [facility] [address] [id number] [place] [address] May, [facility] [address] [id number] [place] [address] May, [facility] [address] [id number] [place] [address] May, [facility] [address] [id number] [place] [address] Apr, [facility] [address] [id number] [place] [address] Apr, [facility] [address] [id number] [place] [address] Mar, [facility] [address] [id number] [place] [address] Mar, [facility] [address] [id number] [place] [address] Mar, [facility] [address] [id number] [place] [address] Mar, [facility] [address] [id number] [place] [address] Mar, [facility] [address] [id number] [place] [address] Feb, [facility] [address] [id number] [place] [address] Jan, [facility] [address] [id number] [place] [address] Jan, [facility] [address] [id number] [place] [address] Jan, [facility] [address] [id number] [place] [address] Jan, [facility] [address] [id number] [place] [address] Jan, [facility] [address] [id number] [place] [address] Dec, [facility] [address] [id number] [place] [address] Dec, [facility] [address] [id number] [place] [address] Dec, [facility] [address] [id number] [place] [address] Dec, [facility] [address] [id number] [place] [address] Nov, [facility] [address] [id number] [place] [address] Nov, [facility] [address] [id number] [place] [address] Nov, [facility] [address] [id number] [place] [address] October, [facility] [address] [id number] [place] [address] October, [facility] [address] [id number] [place] [address] October, [facility] [address] [id number] [place] [address] Sep, [facility] [address] [id number] [place] [address] Sep, [facility] [address] [id number] [place] [address] Aug, [facility] [address] [id number] [place] [address] Aug, [facility] [address] [id number] [place] [address] Jul, [facility] [address] [id number] [place] [address] Jul, [facility] [address] [id number] [place] [address] Jul, [facility] [address] [id number] [place] [address] Jul, [facility] [address] [id number] [place] [address] Jul, [facility] [address] [id number] [place] [address] Jun, [facility] [address] [id number] [place] [address] May, [facility] [address] [id number] [place] [address] 31 May, 2012 [facility] [id number] [place] [address] 14 May, 2012 [facility] [address] [id number] [place] [address] 14 May, 2012 [facility] [id number] [place] [address] May, [facility] [address] [id number] [place] [address] May, [facility] [id number] [place] [address] 10 May, 2012 [facility] [address] [id number] [place] [address] May, [facility] [address] [id number] [place] [address] Apr, [facility] [address] [id number] [place] [address] Apr, [facility] [address] [id number] [place] [address] Apr, [facility] [address] [id number] [place] [address] Apr, [facility] [address] [id number] [place] [address] Mar, [facility] [address] [id number] [place] [address] Mar, [facility] [address] [id number] [place] [address] Mar, [facility] [address] [id number] [place] [address] Feb, [facility] [address] [id number] [place] [address] Feb, [facility] [address] [id number] [place] [address] Jan, [facility] [address] [id number] [place] [address] Jan, [facility] [address] [id number] [place] [address] Jan, [facility] [address] [id number] [place] [address] Dec, [facility] [address] [id number] [place] [address] Dec, [facility] [address] [id number] [place] [address] Dec, [facility] [address] [id number] [place] [address] Dec, [facility] [address] [id number] [place] [address] Nov, [facility] [address] [id number] [place] [address] Nov, [facility] [address] [id number] [place] [address] Nov, [facility] [address] [id number] [place] [address] October, [facility] [address] [id number] [place] [address] October, [facility] [address] [id number] [place] [address] October, [facility] [address] [facility] [id number] [place] [address] Sep, [facility] [address] [id number] [place] [address] Sep, [facility] [address] [id number] [place] [address] Sep, [facility] [address] [id number] [place] [address] Aug, [facility] [address] [id number] [place] [address] Aug, [facility] [address] [id number] [place] [address] Aug, [facility] [address] [id number] [place] [address] Jul, [facility] [address] [id number] [place] [address] Jun, [facility] [address] [id number] [place] [address] Jun, [facility] [address] [id number] [place] [address] May, [facility] [address] [id number] [place] [address] May, [facility] [address] [id number] [place] [address] May, [facility] [id number] [place] [address] May, [facility] [id number] [place] [address] Apr, [facility] [id number] [place] [address] Apr, [facility] [id number] [place] [address] Apr, [facility] [id number] [place] [address] Apr, [facility] [id number] [place] [address] Apr, [facility] [id number] [place] [address] Mar, [facility] [id number] [place] [address] Mar, [facility] [id number] [place] [address] Jan, [facility] [id number] [place] [address] May, [facility] [address] [address] Apr, [facility] [id number] [place] [address] Mar, [facility] [id number] [place] [address] Jun, [facility] [id number] [place] [address] Apr, [facility] [id number] [place] [address] Apr, IMMUNIZATIONS No Known Immunizations SOCIAL HISTORY Never Assessed REASON FOR VISIT PLAN OF CARE VITAL SIGNS MEDICATIONS Unknown Medications RESULTS No Results PROCEDURES No Known procedures INSTRUCTIONS MEDICATIONS ADMINISTERED No Known Medications MEDICAL (GENERAL) HISTORY Type Description Date Medical History seizures Surgical History No Surgical history information
--- OUTSIDE RECORDS SUMMARY | 2019-09-07 02:34 | XMS REPORT ---
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 Activ e 510912106 Problem Impulse control disorder F63.9 Activ e 77791820 Problem Depressive disorder F32.9 Active 08203052 Problem Mild intellectual disabilities F70 Active 71581321 Problem Seasonal allergic rhinitis due to pollen J30.1 Active 79482474 ALLERGIES No Information ENCOUNTERS Encounter Location Date Diagnosis [place] [id number] [address] May, [facility] [address] [address] Apr, [place] [address] [address] Apr, Depressive disorder F32.9 ; Impulse cont rol disorder F63.9 and Mild intellectual disabilities F70 [place] [address] [address] Apr, [facility] [address] [address] Apr, [facility] [address] [address] 14 Apr, 2019 [facility] [address] [address] Apr, Impulse control disorder F63.9 ; Depress douglas disorder F32.9 and Mild intellectual disabilities F70 [place] [address] [place] [address] Mar, [facility] [address] [place] [address] [id number] [place] [address] Mar, [facility] [address] [address] Mar, Encounter for immunization Z23 [facility] [address] [place] [address] [id number] [place] [address] Dec, [facility] [address] [address] Dec, Seasonal allergic rhinitis due to pollen J30.1 [facility] [address] [address] October, Depressive disorder F32.9 ; Impulse cont rol disorder F63.9 and Mild intellectual disabilities F70 [facility] [address] [address] Jun, Impulse control disorder F63.9 ; Mild in tellectual disabilities F70 ; Relationship dysfunction Z63.9 and Depressive disorder F32.9 [facility] [id number] [place] [address] Jun, [facility] [address] [address] May, [facility] [address] [id number] [place] [address] May, [facility] [address] [address] May, Encounter for immunization Z23 [facility] [address] [id number] [place] [address] Apr, [facility] [address] [address] Apr, [facility] [address] [address] Mar, [facility] [address] [address] Mar, [facility] [address] [address] 26 Feb, 2018 Annual physical exam Z00.00 [facility] [address] [address] 25 Feb, 2018 Annual physical exam Z00.00 ; Mild intel lectual disabilities F70 and Encounter for immunization Z23 [facility] [address] [address] 11 Feb, 2018 [facility] [address] [address] Jan, [facility] [address] [address] Jan, Impulse control disorder F63.9 ; Mild in tellectual disabilities F70 and Depressive disorder F32.9 [facility] [address] [address] Nov, [facility] [address] [address] Nov, [facility] [address] [address] Nov, [facility] [address] [address] Nov, [facility] [address] [address] Nov, [facility] [address] [address] 05 Nov, 2017 Impulse control disorder F63.9 ; Depress douglas disorder F32.9 and Mild intellectual disabilities F70 [facility] [address] [address] October, [facility] [address] [address] October, Impulse control disorder F63.9 ; Depress douglas disorder F32.9 and Mild intellectual disabilities F70 [facility] [address] [address] Sep, [facility] [address] [place] [address] Sep, Impulse control disorder F63.9 ; Depress douglas disorder F32.9 and Mild intellectual disabilities F70 [facility] [address] [address] Sep, Impulse control disorder F63.9 ; Depress douglas disorder F32.9 and Mild intellectual disabilities F70 [facility] [address] [address] Aug, [facility] [address] [address] Aug, Impulse control disorder F63.9 ; Depress douglas disorder F32.9 and Mild intellectual disabilities F70 [facility] [address] [id number] Aug, Dental examination Z01.20 [facility] [address] [address] Aug, [facility] [address] [address] Aug, Impulse control disorder F63.9 ; Depress douglas disorder F32.9 and Mild intellectual disabilities F70 [facility] [address] [address] Jul, Impulse control disorder F63.9 ; Depress douglas disorder F32.9 and Mild intellectual disabilities F70 [facility] [address] [id number] Jul, Dental examination Z01.20 [facility] [address] [address] Jul, [facility] [address] [address] Jun, Impulse control disorder F63.9 ; Depress douglas disorder F32.9 and Mild intellectual disabilities F70 [facility] [address] [address] 08 Jun, 2017 Impulse control disorder F63.9 ; Depress douglas disorder F32.9 and Mild intellectual disabilities F70 [facility] [address] [address] 08 Jun, 2017 [facility] [address] [address] May, [facility] [address] [place] [id number] May, Impulse control disorder F63.9 ; Depress douglas disorder F32.9 and Mild intellectual disabilities F70 [facility] [address] [address] Apr, Impulse control disorder F63.9 ; Depress douglas disorder F32.9 and Mild intellectual disabilities F70 [facility] [address] [address] Apr, Seizures R56.9 [facility] [address] [address] Apr, [facility] [address] [address] Apr, Seizures R56.9 ; Tobacco abuse Z72.0 ; A lcohol abuse F10.10 and Encounter for immunization Z23 [facility] [address] [address] Apr, Impulse control disorder F63.9 ; Depress douglas disorder F32.9 and Mild intellectual disabilities F70 [facility] [address] [address] Mar, Impulse control disorder F63.9 ; Depress douglas disorder F32.9 and Mild intellectual disabilities F70 [facility] [address] [address] Mar, [facility] [address] [address] Mar, Impulse control disorder F63.9 ; Depress douglas disorder F32.9 and Mild intellectual disabilities F70 [facility] [address] [address] Mar, [facility] [address] [address] Feb, Impulse control disorder F63.9 ; Depress douglas disorder F32.9 and Mild intellectual disabilities F70 [facility] [address] [address] Feb, [facility] [address] [address] Feb, Impulse control disorder F63.9 ; Depress douglas disorder F32.9 and Mild intellectual disabilities F70 [facility] [address] [address] Jan, Annual physical exam Z00.00 ; Right hand pain M79.641 ; Impulse control disorder F63.9 ; Mild intellectual disabilities F70 and Depressive disorder F32.9 [facility] [address] [address] Jan, Impulse control disorder F63.9 ; Depress douglas disorder F32.9 and Mild intellectual disabilities F70 [facility] [address] [address] Jan, [facility] [address] [address] Jan, Impulse control disorder F63.9 ; Depress douglas disorder F32.9 and Mild intellectual disabilities F70 [facility] [address] [address] Jan, Impulse control disorder F63.9 ; Depress douglas disorder F32.9 and Mild intellectual disabilities F70 [facility] [address] [address] Dec, [facility] [address] [address] Dec, Impulse control disorder F63.9 ; Depress douglas disorder F32.9 and Mild intellectual disabilities F70 [facility] [address] [address] Nov, Impulse control disorder F63.9 ; Depress douglas disorder F32.9 and Mild intellectual disabilities F70 [facility] [address] [address] Nov, [facility] [address] [address] Nov, [facility] [address] [address] Nov, [facility] [address] [address] October, Impulse control disorder F63.9 ; Depress douglas disorder F32.9 and Mild intellectual disabilities F70 [facility] [address] [address] October, [facility] [address] [address] October, Impulse control disorder F63.9 ; Depress douglas disorder F32.9 and Mild intellectual disabilities F70 [facility] [address] [address] Sep, [facility] [address] [address] Sep, Impulse control disorder F63.9 ; Depress douglas disorder F32.9 and Mild intellectual disabilities F70 [facility] [address] [address] Sep, Seasonal allergic rhinitis due to pollen J30.1 [facility] [address] [address] Sep, [facility] [address] [address] Sep, [facility] [address] [address] Sep, Impulse control disorder F63.9 ; Depress douglas disorder F32.9 and Mild intellectual disabilities F70 [facility] [address] [address] Aug, Impulse control disorder F63.9 ; Depress douglas disorder F32.9 and Mild intellectual disabilities F70 [facility] [address] [place] [id number] [place] [address] Aug, [facility] [address] [address] Aug, [facility] [address] [address] Jul, [facility] [address] [address] Jul, Impulse control disorder F63.9 ; Depress douglas disorder F32.9 and Mild intellectual disabilities F70 [facility] [address] [place] [id number] [place] [id number] Jul, Dental examination Z01.20 [facility] [address] [address] Jul, Impulse control disorder F63.9 ; Depress douglas disorder F32.9 and Mild intellectual disabilities F70 [facility] [address] [place] [id number] [place] [address] Jul, [facility] [address] [address] Jun, [facility] [address] [address] Jun, Impulse control disorder F63.9 ; Depress douglas disorder F32.9 and Mild intellectual disabilities F70 [facility] [address] [place] [id number] [place] [address] Jun, [facility] [address] [address] [id number] [place] [address] Jun, [facility] [address] [address] Jun, Impulse control disorder F63.9 ; Depress douglas disorder F32.9 and Mild intellectual disabilities F70 [facility] [address] [address] May, Impulse control disorder F63.9 ; Depress douglas disorder F32.9 and Mild intellectual disabilities F70 [facility] [address] [address] May, Annual physical exam Z00.00 ; Other fati sarah R53.83 ; Seizures R56.9 ; Mild intellectual disabilities F70 and Impulse control disorder F63.9 [facility] [address] [address] May, [facility] [address] [address] May, Impulse control disorder F63.9 ; Depress douglas disorder F32.9 and Mild intellectual disabilities F70 [facility] [address] [id number] 30 Apr, 2016 Encounter for dental examination Z01.20 [facility] [address] [address] Apr, Impulse control disorder F63.9 ; Depress douglas disorder F32.9 and Mild intellectual disabilities F70 [facility] [address] [address] Apr, [facility] [address] [address] Mar, Impulse control disorder F63.9 ; Depress douglas disorder F32.9 and Mild intellectual disabilities F70 [facility] [address] [address] Mar, Impulse control disorder F63.9 ; Depress douglas disorder F32.9 and Mild intellectual disabilities F70 [facility] [address] [address] Mar, [facility] [address] [address] Mar, [facility] [address] [address] Feb, Impulse control disorder F63.9 ; Depress douglas disorder F32.9 and Mild intellectual disabilities F70 [facility] [address] [address] Feb, Impulse control disorder F63.9 ; Depress douglas disorder F32.9 and Mild intellectual disabilities F70 [facility] [address] [address] Feb, [facility] [address] [address] Jan, Annual physical exam Z00.00 ; Impulse co ntrol disorder F63.9 ; Mild intellectual disabilities F70 ; Depressive disorder F32.9 and Seizures R56.9 [facility] [address] [address] Jan, Impulse control disorder F63.9 ; Depress douglas disorder F32.9 and Mild intellectual disabilities F70 [facility] [address] [address] Jan, [facility] [address] [address] Jan, Impulse control disorder F63.9 ; Depress douglas disorder F32.9 and Mild intellectual disabilities F70 [facility] [address] [address] Jan, [facility] [address] [address] Jan, [facility] [address] [address] Dec, Impulse control disorder F63.9 ; Depress douglas disorder F32.9 and Mild intellectual disabilities F70 [facility] [address] [address] Dec, Impulse control disorder F63.9 ; Depress douglas disorder F32.9 and Mild intellectual disabilities F70 [facility] [address] [address] Dec, [facility] [address] [address] Dec, Depressive disorder F32.9 ; Impulse cont rol disorder F63.9 and Mild intellectual disabilities F70 [facility] [address] [address] Nov, [facility] [address] [address] Nov, Depressive disorder F32.9 ; Impulse cont rol disorder F63.9 and Mild intellectual disabilities F70 [facility] [address] [address] Nov, [facility] [address] [address] October, Depressive disorder F32.9 ; Impulse cont rol disorder F63.9 and Mild intellectual disabilities F70 [facility] [address] [address] October, [facility] [address] [address] October, [facility] [address] [address] October, Depressive disorder F32.9 ; Impulse cont rol disorder F63.9 and Mild intellectual disabilities F70 [facility] [address] [address] October, [facility] [address] [address] Sep, [facility] [address] [address] Sep, Depressive disorder F32.9 ; Impulse cont rol disorder F63.9 and Mild intellectual disabilities F70 [facility] [address] [address] Sep, Depressive disorder F32.9 ; Impulse cont rol disorder F63.9 and Mild intellectual disabilities F70 [facility] [address] [address] Sep, [facility] [address] [address] Aug, [facility] [address] [address] Aug, Depressive disorder F32.9 ; Impulse cont rol disorder F63.9 and Mild intellectual disabilities F70 [facility] [address] [address] Aug, Depressive disorder F32.9 ; Impulse cont rol disorder F63.9 and Mild intellectual disabilities F70 [facility] [address] [id number] Jul, Dental examination Z01.20 [facility] [address] [address] Jul, [facility] [address] [address] Jul, Depressive disorder F32.9 ; Impulse cont rol disorder F63.9 and Mild intellectual disabilities F70 [facility] [address] [address] 05 Jul, 2015 Depressive disorder F32.9 ; Impulse cont rol disorder F63.9 and Mild intellectual disabilities F70 [facility] [address] [address] Jul, Depression screening Z13.89 ; 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, 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 and Screening for STD sexually transmitted disease Z11.3 [facility] [address] [address] Jun, [facility] [address] [address] Jun, Depressive disorder F32.9 ; Impulse cont rol disorder F63.9 and Mild intellectual disabilities F70 [facility] [address] [address] Jun, Depressive disorder, not elsewhere class ified F32.9 ; Mild mental retardation F70 and Impulse control disorder F63.9 [facility] [address] [address] Jun, Depressive disorder, not elsewhere class ified F32.9 ; Impulse control disorder F63.9 and Mild intellectual disabilities F70 [facility] [address] [address] Jun, [facility] [address] [id number] Jun, Dental examination Z01.20 [facility] [address] [address] 17 May, 2015 Depressive disorder, not elsewhere class ified F32.9 ; Impulse control disorder F63.9 and Mild intellectual disabilities F70 [facility] [address] [address] May, [facility] [address] [address] May, [facility] [address] [address] May, Depressive disorder, not elsewhere class ified F32.9 ; Impulse control disorder F63.9 and Mild intellectual disabilities F70 [facility] [address] [address] May, Depressive disorder, not elsewhere class ified F32.9 ; Impulse control disorder F63.9 and Mild mental retardation F70 [facility] [address] [address] Apr, Depressive disorder, not elsewhere class ified F32.9 ; Impulse control disorder F63.9 and Mild intellectual disabilities F70 [facility] [address] [address] Apr, [facility] [address] [address] Mar, Depressive disorder, not elsewhere class ified F32.9 ; Impulse control disorder F63.9 and Mild intellectual disabilities F70 [facility] [address] [address] Mar, Depressive disorder, not elsewhere class ified F32.9 ; Impulse control disorder F63.9 and Mild intellectual disabilities F70 [facility] [address] [address] Mar, [place] [address] [address] Mar, Encounter for immunization Z23 [place] [address] [address] Mar, Depressive disorder, not elsewhere class ified F32.9 ; Impulse control disorder F63.9 and Mild intellectual disabilities F70 [place] [address] [address] Feb, Depressive disorder, not elsewhere class ified 311 ; Impulse control disorder, unspecified 312.30 and Mild mental retardation 317 [place] [address] [address] Feb, [facility] [address] [address] Feb, Depressive disorder, not elsewhere class ified 311 ; Impulse control disorder, unspecified 312.30 and Mild mental retardation 317 [facility] [address] [address] Jan, Depressive disorder, not elsewhere class ified 311 ; Impulse control disorder, unspecified 312.30 and Mild mental retardation 317 [facility] [address] [address] Jan, Depressive disorder, not elsewhere class ified 311 ; Impulse control disorder, unspecified 312.30 and Mild mental retardation [address] [place] [address] [address] Jan, [facility] [address] [address] Jan, Depressive disorder, not elsewhere class ified 311 ; Impulse control disorder, unspecified 312.30 and Mild mental retardation 317 [facility] [id number] [place] [address] Dec, Depressive disorder, not elsewhere class ified 311 ; Impulse control disorder, unspecified 312.30 and Mild mental retardation 317 [facility] [id number] [place] [address] Dec, [facility] [address] [id number] [place] [id number] Dec, Dental examination V72.2 [facility] [id number] [place] [address] Dec, Heat rash 705.1 ; Seizures 780.39 and Hi gh risk medication use V58.69 [facility] [id number] [place] [address] Dec, [facility] [address] [address] Dec, Depressive disorder, not elsewhere class ified 311 ; Impulse control disorder, unspecified 312.30 and Mild mental retardation 317 [facility] [id number] [place] [address] Nov, Depressive disorder, not elsewhere class ified 311 ; Impulse control disorder, unspecified 312.30 and Mild mental retardation 317 [facility] [id number] [place] [address] Nov, [facility] [address] [address] Nov, Nicotine addiction 305.1 [facility] [id number] [place] [address] Nov, [facility] [address] [address] Nov, High risk medication use V58.69 [facility] [id number] [place] [address] Nov, High risk medication use V58.69 [facility] [address] [address] Nov, Depressive disorder, not elsewhere class ified 311 ; Impulse control disorder, unspecified 312.30 and Mild mental retardation 317 [facility] [address] [address] Nov, Depressive disorder, not elsewhere class ified 311 ; 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 and Impulse control disorder, unspecified 312.30 [facility] [address] [address] October, Depressive disorder, not elsewhere class ified 311 ; Impulse control disorder, unspecified 312.30 and Mild mental retardation 317 [facility] [address] [address] October, [facility] [address] [address] October, Depressive disorder, not elsewhere class ified 311 ; Impulse control disorder, unspecified 312.30 and Mild mental retardation 317 [facility] [id number] [place] [address] October, [facility] [address] [id number] [place] [id number] October, Dental examination V72.2 [facility] [id number] [place] [address] Sep, Depressive disorder, not elsewhere class ified 311 ; Impulse control disorder 312.30 and Mild mental retardation 317 [facility] [address] [address] Sep, [facility] [address] [address] Sep, [facility] [address] [address] Aug, [facility] [address] [id number] [place] [address] Aug, [facility] [address] [id number] [place] [address] Aug, [facility] [address] [id number] [place] [address] Aug, 2014 [facility] [address] [id number] [place] [address] 16 Aug, 2014 [facility] [address] [id number] [place] [address] 16 Aug, 2014 [facility] [address] [id number] [place] [address] Aug, [facility] [address] [id number] [place] [address] Aug, 2014 [facility] [address] [id number] [place] [address] Jul, 2014 [facility] [address] [id number] [place] [address] Jul, 2014 [facility] [address] [id number] [place] [address] Jul, 2014 [facility] [address] [id number] [place] [address] Jul, 2014 [facility] [address] [id number] [place] [address] 16 Jul, 2014 [facility] [address] [id number] [place] [address] 16 Jul, 2014 [facility] [address] [id number] [place] [address] 16 Jul, 2014 [facility] [address] [id number] [place] [address] 16 Jul, 2014 [facility] [address] [id number] [place] [address] 11 Jul, 2014 [facility] [address] [id number] [place] [address] Jul, [facility] [address] [facility] [id number] [place] [address] Jul, [facility] [address] [id number] [place] [address] Jul, [facility] [address] [id number] [place] [address] Jul, [facility] [address] [id number] [place] [address] Jul, [facility] [address] [id number] [place] [address] Jun, [facility] [address] [id number] [place] [address] Jun, [facility] [address] [id number] [place] [address] Jun, [facility] [address] [id number] [place] [address] Jun, [facility] [address] [id number] [place] [address] Jun, [facility] [address] [id number] [place] [address] Jun, [facility] [address] [id number] [place] [address] Jun, [facility] [address] [id number] [place] [address] Jun, [facility] [address] [id number] [place] [address] Jun, [facility] [address] [id number] [place] [address] Jun, [facility] [address] [id number] [place] [address] Jun, [facility] [address] [id number] [place] [address] Jun, [facility] [address] [id number] [place] [address] 08 Jun, 2014 [facility] [address] [id number] [place] [address] Jun, [facility] [address] [id number] [place] [address] Jun, [facility] [address] [id number] [place] [address] Jun, [facility] [address] [id number] [place] [address] Jun, [facility] [address] [id number] [place] [address] Jun, [facility] [address] [id number] [place] [address] Jun, [facility] [address] [id number] [place] [address] Jun, [facility] [address] [id number] [place] [address] May, [facility] [address] [id number] [place] [address] May, [facility] [address] [id number] [place] [address] May, [facility] [address] [id number] [place] [address] May, [facility] [address] [id number] [place] [address] May, [facility] [address] [id number] [place] [address] Apr, [facility] [address] [id number] [place] [address] Apr, [facility] [address] [id number] [place] [address] Apr, [facility] [address] [id number] [place] [address] Apr, [facility] [address] [facility] [id number] [place] [address] Apr, [facility] [address] [facility] [id number] [place] [address] Apr, [facility] [address] [id number] [place] [address] Apr, [facility] [address] [facility] [id number] [place] [address] Apr, [facility] [address] [facility] [id number] [place] [address] Mar, [facility] [address] [id number] [place] [address] Mar, [facility] [address] [id number] [place] [address] Mar, [facility] [address] [id number] [place] [address] Mar, [facility] [address] [id number] [place] [address] Mar, [facility] [address] [id number] [place] [address] Mar, [facility] [address] [id number] [place] [address] Mar, [facility] [address] [id number] [place] [address] Mar, [facility] [address] [facility] [id number] [place] [address] Mar, [facility] [address] [facility] [id number] [place] [address] Mar, [facility] [address] [id number] [place] [address] Mar, [facility] [address] [id number] [place] [address] Mar, [facility] [address] [id number] [place] [address] 15 Mar, 2014 [facility] [address] [facility] [id number] [place] [address] Mar, [facility] [address] [id number] [place] [address] Mar, [facility] [address] [id number] [place] [address] Mar, [facility] [address] [id number] [place] [address] Mar, [facility] [address] [id number] [place] [address] Mar, [facility] [address] [id number] [place] [address] Mar, [facility] [address] [id number] [place] [address] Mar, [facility] [address] [id number] [place] [address] 24 Feb, 2013 [facility] [address] [id number] [place] [address] 24 Feb, 2013 [facility] [address] [id number] [place] [address] 19 Feb, 2013 [facility] [address] [id number] [place] [address] Feb, 2013 [facility] [address] [id number] [place] [address] 11 Feb, 2013 [facility] [address] [id number] [place] [address] 11 Feb, 2013 [facility] [address] [id number] [place] [address] 05 Feb, 2013 [facility] [address] [id number] [place] [address] 05 Feb, 2013 [facility] [address] [id number] [place] [address] Jan, [facility] [address] [id number] [place] [address] Jan, [facility] [address] [facility] [id number] [place] [address] Jan, [facility] [address] [facility] [id number] [place] [address] Jan, [facility] [address] [id number] [place] [address] Dec, [facility] [address] [facility] [id number] [place] [address] Dec, [facility] [address] [facility] [id number] [place] [address] Dec, [facility] [address] [id number] [place] [address] Dec, [facility] [address] [id number] [place] [address] Dec, [facility] [address] [id number] [place] [address] Dec, [facility] [address] [id number] [place] [address] Dec, [facility] [address] [id number] [place] [address] Dec, [facility] [address] [id number] [place] [address] Dec, [facility] [address] [id number] [place] [address] Dec, [facility] [address] [facility] [id number] [place] [address] Nov, [facility] [address] [id number] [place] [address] Nov, [facility] [address] [id number] [place] [address] Nov, [facility] [address] [id number] [place] [address] Nov, [facility] [address] [id number] [facility] [place] [address] Nov, [facility] [address] [facility] [id number] [facility] [place] [address] Nov, [facility] [address] [facility] [id number] [facility] [place] [address] Nov, [facility] [address] [id number] [facility] [place] [address] Nov, [facility] [address] [facility] [id number] [facility] [place] [address] Nov, [facility] [address] [facility] [id number] [place] [address] Nov, [facility] [address] [id number] [place] [address] Nov, [facility] [address] [id number] [place] [address] Nov, [facility] [address] [facility] [id number] [place] [address] October, [facility] [address] [id number] [place] [address] October, [facility] [address] [id number] [place] [address] October, [facility] [address] [id number] [place] [address] October, [facility] [address] [facility] [id number] [place] [address] October, [facility] [address] [id number] [place] [address] October, [facility] [address] [facility] [id number] [place] [address] October, [facility] [address] [id number] [place] [address] October, [facility] [address] [id number] [place] [address] October, [facility] [address] [facility] [id number] [place] [address] October, [facility] [address] [id number] [place] [address] Sep, [facility] [address] [id number] [place] [address] Sep, [facility] [address] [id number] [place] [address] Sep, [facility] [address] [id number] [place] [address] Sep, [facility] [address] [id number] [place] [address] Sep, [facility] [address] [id number] [place] [address] Sep, [facility] [address] [id number] [place] [address] Sep, [facility] [address] [id number] [place] [address] Sep, [facility] [address] [id number] [place] [address] Aug, [facility] [address] [id number] [place] [address] Aug, [facility] [address] [id number] [place] [address] Aug, [facility] [address] [id number] [place] [address] Aug, [facility] [address] [id number] [place] [address] Aug, [facility] [address] [id number] [place] [address] Aug, [facility] [address] [id number] [place] [address] Aug, [facility] [address] [facility] [id number] [place] [address] Aug, [facility] [address] [facility] [id number] [place] [address] Jul, [facility] [address] [facility] [id number] [place] [address] Jul, [facility] [address] [id number] [place] [address] Jul, [facility] [address] [facility] [id number] [place] [address] Jul, [facility] [address] [id number] [place] [address] Jul, [facility] [address] [id number] [place] [address] Jul, [facility] [address] [id number] [place] [address] Jul, [facility] [address] [id number] [place] [address] Jul, [facility] [address] [id number] [place] [address] Jun, [facility] [address] [id number] [place] [address] Jun, [facility] [address] [id number] [place] [address] Jun, [facility] [address] [id number] [place] [address] Jun, [facility] [address] [id number] [place] [address] Jun, [facility] [address] [id number] [place] [address] Jun, [facility] [address] [id number] [place] [address] Jun, [facility] [address] [id number] [place] [address] Jun, [facility] [address] [id number] [place] [address] May, [facility] [address] [id number] [place] [address] May, [facility] [address] [id number] [place] [address] May, [facility] [address] [id number] [place] [address] May, [facility] [address] [id number] [place] [address] May, [facility] [address] [id number] [place] [address] May, [facility] [address] [id number] [place] [address] Apr, [facility] [address] [id number] [place] [address] Apr, [facility] [address] [id number] [place] [address] Mar, [facility] [address] [id number] [place] [address] Mar, [facility] [address] [id number] [place] [address] Mar, [facility] [address] [id number] [place] [address] Mar, [facility] [address] [id number] [place] [address] Mar, [facility] [address] [id number] [place] [address] Feb, [facility] [address] [id number] [place] [address] Jan, [facility] [address] [id number] [place] [address] Jan, [facility] [address] [id number] [place] [address] Jan, [facility] [address] [id number] [place] [address] Jan, [facility] [address] [id number] [place] [address] Jan, [facility] [address] [id number] [place] [address] Dec, [facility] [address] [id number] [place] [address] Dec, [facility] [address] [id number] [place] [address] Dec, [facility] [address] [id number] [place] [address] Dec, [facility] [address] [id number] [place] [address] Nov, [facility] [address] [id number] [place] [address] Nov, [facility] [address] [id number] [place] [address] Nov, [facility] [address] [id number] [place] [address] October, [facility] [address] [id number] [place] [address] October, [facility] [address] [id number] [place] [address] October, [facility] [address] [id number] [place] [address] Sep, [facility] [address] [id number] [place] [address] Sep, [facility] [address] [id number] [place] [address] Aug, [facility] [address] [id number] [place] [address] Aug, [facility] [address] [id number] [place] [address] Jul, [facility] [address] [id number] [facility] [place] [address] Jul, [facility] [address] [id number] [place] [address] Jul, [facility] [address] [id number] [place] [address] Jul, [facility] [address] [id number] [place] [address] Jul, [facility] [address] [id number] [place] [address] Jun, [facility] [address] [id number] [place] [address] May, [facility] [address] [id number] [place] [address] 31 May, 2012 [facility] [address] [id number] [place] [address] 14 May, 2012 [facility] [id number] [place] [address] 14 May, 2012 [facility] [id number] [place] [address] May, [facility] [id number] [place] [address] May, [facility] [id number] [place] [address] 10 May, 2012 [facility] [id number] [place] [address] May, [facility] [id number] [place] [address] Apr, [facility] [id number] [place] [address] Apr, [facility] [id number] [place] [address] Apr, [facility] [id number] [place] [address] Apr, [facility] [id number] [place] [address] Mar, [facility] [id number] [place] [address] Mar, [facility] [id number] [place] [address] Mar, [facility] [id number] [place] [address] Feb, [facility] [id number] [place] [address] Feb, [facility] [id number] [place] [address] Jan, [facility] [id number] [place] [address] Jan, [facility] [id number] [place] [address] Jan, [facility] [id number] [place] [address] Dec, [facility] [id number] [place] [address] Dec, [facility] [id number] [place] [address] Dec, [facility] [id number] [place] [address] Dec, [facility] [id number] [place] [address] Nov, [facility] [id number] [place] [address] Nov, [facility] [id number] [place] [address] Nov, [facility] [id number] [place] [address] October, [facility] [id number] [place] [address] October, [facility] [id number] [place] [address] October, [facility] [id number] [place] [address] Sep, [facility] [id number] [place] [address] Sep, [facility] [id number] [place] [address] Sep, [facility] [id number] [place] [address] Aug, [facility] [id number] [place] [address] Aug, [facility] [id number] [place] [address] Aug, [facility] [id number] [place] [address] Jul, [facility] [id number] [place] [address] Jun, [facility] [id number] [place] [address] Jun, [facility] [id number] [place] [address] May, [facility] [id number] [place] [address] May, [facility] [id number] [place] [address] May, [facility] [id number] [place] [address] May, [facility] [id number] [place] [address] Apr, [facility] [id number] [place] [address] Apr, [facility] [id number] [place] [address] Apr, [facility] [id number] [place] [address] Apr, [facility] [id number] [place] [address] Apr, [facility] [id number] [place] [address] Mar, [facility] [id number] [place] [address] Mar, [facility] [id number] [place] [address] Jan, [facility] [id number] [place] [address] May, [facility] [id number] [place] [address] Apr, [facility] [id number] [place] [address] Mar, [facility] [id number] [place] [address] Jun, [facility] [id number] [place] [address] Apr, [facility] [id number] [place] [address] Apr, IMMUNIZATIONS No Known Immunizations SOCIAL HISTORY Never Assessed REASON FOR VISIT PLAN OF CARE VITAL SIGNS MEDICATIONS Unknown Medications RESULTS No Results PROCEDURES Procedure Date Ordered Result Body Site PSYTX PT&/FAMILY 45 MINUTES October 22, 2013 INSTRUCTIONS MEDICATIONS ADMINISTERED No Known Medications MEDICAL (GENERAL) HISTORY Type Description Date Medical History seizures Surgical History No Surgical history information
--- OUTSIDE RECORDS SUMMARY | 2019-09-07 02:53 | XMS REPORT ---
Author Author Reymundo BERKOWITZ Organization [facility] Address [address] [place] [address] Care Team Providers Care Ships Or Barges Loader Name Role Phone YANNICK BERKOWITZA Unavailable PROBLEMS Type Condition ICD9-CM Code YNX01-YH Code Onset Dates Condition S tatus SNOMED Code Problem Alcohol abuse F10.10 Active 395380 05 Problem Relationship dysfunction Z63.9 Activ e 682223822 Problem Impulse control disorder F63.9 Activ e 21842752 Problem Depressive disorder F32.9 Active 92475179 Problem Mild intellectual disabilities F70 Active 89159311 Problem Seasonal allergic rhinitis due to pollen J30.1 Active 92536515 ALLERGIES No Information ENCOUNTERS Encounter Location Date Diagnosis [place] [address] [address] May, [place] [address] [address] Apr, [place] [address] [address] Apr, Depressive disorder F32.9 ; Impulse cont rol disorder F63.9 and Mild intellectual disabilities F70 [place] [address] [address] Apr, [facility] [address] [address] Apr, [facility] [address] [address] Apr, [place] [address] [address] Apr, Impulse control disorder F63.9 ; Depress douglas disorder F32.9 and Mild intellectual disabilities F70 [place] [address] [place] [address] Mar, [facility] [address] [place] [id number] [place] [address] Mar, [facility] [address] [address] Mar, Encounter for immunization Z23 [facility] [address] [address] Dec, [facility] [address] [address] Dec, Seasonal allergic rhinitis due to pollen J30.1 [facility] [address] [address] October, Depressive disorder F32.9 ; Impulse cont rol disorder F63.9 and Mild intellectual disabilities F70 [facility] [address] [address] Jun, Impulse control disorder F63.9 ; Mild in tellectual disabilities F70 ; Relationship dysfunction Z63.9 and Depressive disorder F32.9 [facility] [address] [address] Jun, [facility] [address] [address] May, [facility] [address] [address] May, [facility] [address] [address] May, Encounter for immunization Z23 [facility] [address] [address] Apr, [facility] [address] [address] Apr, [facility] [address] [address] Mar, [facility] [address] [address] Mar, [facility] [address] [place] [id number] [place] [address] 26 Feb, 2018 Annual physical exam Z00.00 [facility] [address] [address] 25 Feb, 2018 Annual physical exam Z00.00 ; Mild intel lectual disabilities F70 and Encounter for immunization Z23 [facility] [address] [address] 11 Feb, 2018 [facility] [address] [address] Jan, [facility] [address] [address] Jan, Impulse control disorder F63.9 ; Mild in tellectual disabilities F70 and Depressive disorder F32.9 [facility] [address] [address] Nov, [facility] [address] [address] Nov, [facility] [address] [address] Nov, [facility] [address] [address] Nov, [facility] [address] [address] Nov, [facility] [address] [address] 05 Nov, 2017 Impulse control disorder F63.9 ; Depress douglas disorder F32.9 and Mild intellectual disabilities F70 [facility] [address] [address] October, [facility] [address] [address] October, Impulse control disorder F63.9 ; Depress douglas disorder F32.9 and Mild intellectual disabilities F70 [facility] [address] [address] Sep, [facility] [address] [address] Sep, Impulse control disorder F63.9 ; Depress douglas disorder F32.9 and Mild intellectual disabilities F70 [facility] [address] [address] Sep, Impulse control disorder F63.9 ; Depress douglas disorder F32.9 and Mild intellectual disabilities F70 [facility] [address] [address] Aug, [facility] [address] [address] Aug, Impulse control disorder F63.9 ; Depress douglas disorder F32.9 and Mild intellectual disabilities F70 [facility] [address] [id number] Aug, Dental examination Z01.20 [facility] [address] [address] Aug, [facility] [address] [address] Aug, Impulse control disorder F63.9 ; Depress douglas disorder F32.9 and Mild intellectual disabilities F70 [facility] [address] [address] Jul, Impulse control disorder F63.9 ; Depress douglas disorder F32.9 and Mild intellectual disabilities F70 [facility] [address] [id number] Jul, Dental examination Z01.20 [facility] [address] [address] Jul, [facility] [address] [address] Jun, Impulse control disorder F63.9 ; Depress douglas disorder F32.9 and Mild intellectual disabilities F70 [facility] [address] [address] 08 Jun, 2017 Impulse control disorder F63.9 ; Depress douglas disorder F32.9 and Mild intellectual disabilities F70 [facility] [address] [address] Jun, [facility] [address] [address] May, [facility] [address] [address] May, Impulse control disorder F63.9 ; Depress douglas disorder F32.9 and Mild intellectual disabilities F70 [place] [address] [address] Apr, Impulse control disorder F63.9 ; Depress douglas disorder F32.9 and Mild intellectual disabilities F70 [place] [address] [address] Apr, Seizures R56.9 [place] [address] [address] Apr, [place] [address] [address] Apr, Seizures R56.9 ; Tobacco abuse Z72.0 ; A lcohol abuse F10.10 and Encounter for immunization Z23 [place] [address] [address] Apr, Impulse control disorder F63.9 ; Depress douglas disorder F32.9 and Mild intellectual disabilities F70 [facility] [address] [address] Mar, Impulse control disorder F63.9 ; Depress douglas disorder F32.9 and Mild intellectual disabilities F70 [facility] [address] [address] Mar, [facility] [address] [address] Mar, Impulse control disorder F63.9 ; Depress douglas disorder F32.9 and Mild intellectual disabilities F70 [facility] [address] [address] Mar, [facility] [address] [address] Feb, Impulse control disorder F63.9 ; Depress douglas disorder F32.9 and Mild intellectual disabilities F70 [facility] [address] [address] Feb, [facility] [address] [address] Feb, Impulse control disorder F63.9 ; Depress douglas disorder F32.9 and Mild intellectual disabilities F70 [facility] [address] [address] Jan, Annual physical exam Z00.00 ; Right hand pain M79.641 ; Impulse control disorder F63.9 ; Mild intellectual disabilities F70 and Depressive disorder F32.9 [facility] [address] [address] Jan, Impulse control disorder F63.9 ; Depress douglas disorder F32.9 and Mild intellectual disabilities F70 [facility] [address] [address] Jan, [facility] [address] [address] Jan, Impulse control disorder F63.9 ; Depress douglas disorder F32.9 and Mild intellectual disabilities F70 [facility] [address] [address] Jan, Impulse control disorder F63.9 ; Depress douglas disorder F32.9 and Mild intellectual disabilities F70 [facility] [address] [address] Dec, [facility] [address] [address] Dec, Impulse control disorder F63.9 ; Depress douglas disorder F32.9 and Mild intellectual disabilities F70 [facility] [address] [address] Nov, Impulse control disorder F63.9 ; Depress douglas disorder F32.9 and Mild intellectual disabilities F70 [facility] [address] [address] Nov, [facility] [address] [address] Nov, [facility] [address] [address] Nov, [facility] [address] [address] October, Impulse control disorder F63.9 ; Depress douglas disorder F32.9 and Mild intellectual disabilities F70 [facility] [address] [address] October, [facility] [address] [address] October, Impulse control disorder F63.9 ; Depress douglas disorder F32.9 and Mild intellectual disabilities F70 [facility] [address] [address] Sep, [facility] [address] [address] Sep, Impulse control disorder F63.9 ; Depress douglas disorder F32.9 and Mild intellectual disabilities F70 [facility] [address] [address] Sep, Seasonal allergic rhinitis due to pollen J30.1 [facility] [address] [address] Sep, [facility] [address] [address] Sep, [facility] [address] [address] Sep, Impulse control disorder F63.9 ; Depress douglas disorder F32.9 and Mild intellectual disabilities F70 [facility] [address] [address] Aug, Impulse control disorder F63.9 ; Depress douglas disorder F32.9 and Mild intellectual disabilities F70 [facility] [address] [address] Aug, [facility] [address] [address] Aug, [facility] [address] [address] Jul, [facility] [address] [address] Jul, Impulse control disorder F63.9 ; Depress douglas disorder F32.9 and Mild intellectual disabilities F70 [facility] [address] [id number] Jul, Dental examination Z01.20 [facility] [address] [address] Jul, Impulse control disorder F63.9 ; Depress douglas disorder F32.9 and Mild intellectual disabilities F70 [facility] [address] [address] Jul, [facility] [address] [address] Jun, [facility] [address] [address] Jun, Impulse control disorder F63.9 ; Depress douglas disorder F32.9 and Mild intellectual disabilities F70 [facility] [address] [address] Jun, [facility] [address] [address] Jun, [facility] [address] [address] Jun, Impulse control disorder F63.9 ; Depress douglas disorder F32.9 and Mild intellectual disabilities F70 [facility] [address] [address] May, Impulse control disorder F63.9 ; Depress douglas disorder F32.9 and Mild intellectual disabilities F70 [facility] [address] [address] May, Annual physical exam Z00.00 ; Other fati sarah R53.83 ; Seizures R56.9 ; Mild intellectual disabilities F70 and Impulse control disorder F63.9 [facility] [address] [address] May, [facility] [address] [address] May, Impulse control disorder F63.9 ; Depress douglas disorder F32.9 and Mild intellectual disabilities F70 [facility] [address] [id number] 30 Apr, 2016 Encounter for dental examination Z01.20 [facility] [address] [address] Apr, Impulse control disorder F63.9 ; Depress douglas disorder F32.9 and Mild intellectual disabilities F70 [facility] [address] [address] Apr, [facility] [address] [address] Mar, Impulse control disorder F63.9 ; Depress douglas disorder F32.9 and Mild intellectual disabilities F70 [facility] [address] [address] Mar, Impulse control disorder F63.9 ; Depress douglas disorder F32.9 and Mild intellectual disabilities F70 [facility] [address] [address] Mar, [facility] [address] [address] Mar, [facility] [address] [address] Feb, Impulse control disorder F63.9 ; Depress douglas disorder F32.9 and Mild intellectual disabilities F70 [facility] [address] [address] Feb, Impulse control disorder F63.9 ; Depress douglas disorder F32.9 and Mild intellectual disabilities F70 [facility] [address] [address] Feb, [facility] [address] [address] Jan, Annual physical exam Z00.00 ; Impulse co ntrol disorder F63.9 ; Mild intellectual disabilities F70 ; Depressive disorder F32.9 and Seizures R56.9 [facility] [address] [address] Jan, Impulse control disorder F63.9 ; Depress douglas disorder F32.9 and Mild intellectual disabilities F70 [facility] [address] [address] Jan, [facility] [address] [address] Jan, Impulse control disorder F63.9 ; Depress douglas disorder F32.9 and Mild intellectual disabilities F70 [facility] [address] [address] Jan, [facility] [address] [address] Jan, [facility] [address] [address] Dec, Impulse control disorder F63.9 ; Depress douglas disorder F32.9 and Mild intellectual disabilities F70 [facility] [address] [address] Dec, Impulse control disorder F63.9 ; Depress douglas disorder F32.9 and Mild intellectual disabilities F70 [facility] [address] [address] Dec, [facility] [address] [address] Dec, Depressive disorder F32.9 ; Impulse cont rol disorder F63.9 and Mild intellectual disabilities F70 [facility] [address] [address] Nov, [facility] [address] [address] Nov, Depressive disorder F32.9 ; Impulse cont rol disorder F63.9 and Mild intellectual disabilities F70 [facility] [address] [address] Nov, [facility] [address] [address] October, Depressive disorder F32.9 ; Impulse cont rol disorder F63.9 and Mild intellectual disabilities F70 [facility] [address] [address] October, [facility] [address] [address] October, [facility] [address] [address] October, Depressive disorder F32.9 ; Impulse cont rol disorder F63.9 and Mild intellectual disabilities F70 [facility] [address] [address] October, [facility] [address] [address] Sep, [facility] [address] [address] Sep, Depressive disorder F32.9 ; Impulse cont rol disorder F63.9 and Mild intellectual disabilities F70 [facility] [address] [address] Sep, Depressive disorder F32.9 ; Impulse cont rol disorder F63.9 and Mild intellectual disabilities F70 [facility] [address] [place] [id number] Sep, [facility] [address] [address] Aug, [facility] [address] [place] [id number] Aug, Depressive disorder F32.9 ; Impulse cont rol disorder F63.9 and Mild intellectual disabilities F70 [facility] [address] [address] Aug, Depressive disorder F32.9 ; Impulse cont rol disorder F63.9 and Mild intellectual disabilities F70 [facility] [address] [id number] Jul, Dental examination Z01.20 [facility] [address] [address] Jul, [facility] [address] [address] Jul, Depressive disorder F32.9 ; Impulse cont rol disorder F63.9 and Mild intellectual disabilities F70 [facility] [address] [address] 05 Jul, 2015 Depressive disorder F32.9 ; Impulse cont rol disorder F63.9 and Mild intellectual disabilities F70 [facility] [address] [address] Jul, Depression screening Z13.89 ; Drug juliae wm, 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 and Screening for STD sexually transmitted disease Z11.3 [facility] [address] [address] Jun, [facility] [address] [address] Jun, Depressive disorder F32.9 ; Impulse cont rol disorder F63.9 and Mild intellectual disabilities F70 [facility] [address] [address] Jun, Depressive disorder, not elsewhere class ified F32.9 ; Mild mental retardation F70 and Impulse control disorder F63.9 [facility] [address] [address] Jun, Depressive disorder, not elsewhere class ified F32.9 ; Impulse control disorder F63.9 and Mild intellectual disabilities F70 [facility] [address] [address] Jun, [facility] [address] [id number] Jun, Dental examination Z01.20 [facility] [address] [address] 17 May, 2015 Depressive disorder, not elsewhere class ified F32.9 ; Impulse control disorder F63.9 and Mild intellectual disabilities F70 [facility] [address] [address] May, [facility] [address] [address] May, [facility] [address] [address] May, Depressive disorder, not elsewhere class ified F32.9 ; Impulse control disorder F63.9 and Mild intellectual disabilities F70 [facility] [address] [address] May, Depressive disorder, not elsewhere class ified F32.9 ; Impulse control disorder F63.9 and Mild mental retardation F70 [facility] [address] [address] Apr, Depressive disorder, not elsewhere class ified F32.9 ; Impulse control disorder F63.9 and Mild intellectual disabilities F70 [facility] [address] [address] Apr, [facility] [address] [address] Mar, Depressive disorder, not elsewhere class ified F32.9 ; Impulse control disorder F63.9 and Mild intellectual disabilities F70 [facility] [address] [address] Mar, Depressive disorder, not elsewhere class ified F32.9 ; Impulse control disorder F63.9 and Mild intellectual disabilities F70 [place] [address] [address] Mar, [place] [address] [address] Mar, Encounter for immunization Z23 [place] [address] [address] Mar, Depressive disorder, not elsewhere class ified F32.9 ; Impulse control disorder F63.9 and Mild intellectual disabilities F70 [place] [address] [address] Feb, Depressive disorder, not elsewhere class ified 311 ; Impulse control disorder, unspecified 312.30 and Mild mental retardation 317 [place] [address] [address] Feb, [place] [address] [address] Feb, Depressive disorder, not elsewhere class ified 311 ; Impulse control disorder, unspecified 312.30 and Mild mental retardation 317 [place] [address] [address] Jan, Depressive disorder, not elsewhere class ified 311 ; Impulse control disorder, unspecified 312.30 and Mild mental retardation 317 [place] [address] [address] Jan, Depressive disorder, not elsewhere class ified 311 ; Impulse control disorder, unspecified 312.30 and Mild mental retardation [address] [place] [address] [address] Jan, [facility] [address] [place] [id number] [place] [address] Jan, Depressive disorder, not elsewhere class ified 311 ; Impulse control disorder, unspecified 312.30 and Mild mental retardation 317 [facility] [address] [place] [id number] [place] [address] Dec, Depressive disorder, not elsewhere class ified 311 ; Impulse control disorder, unspecified 312.30 and Mild mental retardation 317 [facility] [address] [place] [id number] [place] [address] Dec, [facility] [address] [id number] [place] [id number] Dec, Dental examination V72.2 [facility] [address] [place] [id number] [place] [address] Dec, Heat rash 705.1 ; Seizures 780.39 and Hi gh risk medication use V58.69 [facility] [address] [place] [id number] [place] [address] Dec, [facility] [address] [address] Dec, Depressive disorder, not elsewhere class ified 311 ; Impulse control disorder, unspecified 312.30 and Mild mental retardation 317 [facility] [address] [place] [id number] [place] [address] Nov, Depressive disorder, not elsewhere class ified 311 ; Impulse control disorder, unspecified 312.30 and Mild mental retardation 317 [facility] [address] [place] [id number] [place] [address] Nov, [facility] [address] [address] Nov, Nicotine addiction 305.1 [facility] [address] [id number] [place] [address] Nov, [facility] [address] [address] Nov, High risk medication use V58.69 [facility] [address] [place] [id number] [place] [address] 10 Nov, 2014 High risk medication use V58.69 [facility] [address] [address] Nov, Depressive disorder, not elsewhere class ified 311 ; Impulse control disorder, unspecified 312.30 and Mild mental retardation 317 [facility] [address] [address] Nov, Depressive disorder, not elsewhere class ified 311 ; 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 and Impulse control disorder, unspecified 312.30 [facility] [address] [address] October, Depressive disorder, not elsewhere class ified 311 ; Impulse control disorder, unspecified 312.30 and Mild mental retardation 317 [facility] [address] [address] October, [facility] [address] [address] October, Depressive disorder, not elsewhere class ified 311 ; Impulse control disorder, unspecified 312.30 and Mild mental retardation 317 [facility] [address] [address] October, [facility] [address] [id number] [place] [id number] October, Dental examination V72.2 [facility] [id number] [place] [address] Sep, Depressive disorder, not elsewhere class ified 311 ; Impulse control disorder 312.30 and Mild mental retardation 317 [facility] [address] [address] Sep, [facility] [address] [address] Sep, [facility] [address] [address] Aug, [facility] [address] [id number] [place] [address] 26 Aug, 2014 [facility] [address] [id number] [place] [address] Aug, [facility] [address] [id number] [place] [address] Aug, 2014 [facility] [address] [id number] [place] [address] 16 Aug, 2014 [facility] [address] [id number] [place] [address] 16 Aug, 2014 [facility] [address] [id number] [place] [address] Aug, [facility] [address] [id number] [place] [address] Aug, 2014 [facility] [address] [id number] [place] [address] Jul, 2014 [facility] [address] [id number] [place] [address] Jul, 2014 [facility] [address] [id number] [place] [address] Jul, 2014 [facility] [address] [id number] [place] [address] Jul, 2014 [facility] [address] [id number] [place] [address] 16 Jul, 2014 [facility] [facility] [address] [facility] [id number] [place] [address] 16 Jul, 2014 [facility] [address] [facility] [id number] [place] [address] 16 Jul, 2014 [facility] [address] [id number] [place] [address] 16 Jul, 2014 [facility] [address] [id number] [place] [address] 11 Jul, 2014 [facility] [address] [id number] [place] [address] Jul, [facility] [address] [facility] [id number] [place] [address] Jul, [facility] [address] [id number] [place] [address] Jul, [facility] [address] [id number] [place] [address] Jul, [facility] [address] [id number] [place] [address] Jul, [facility] [address] [id number] [place] [address] Jun, [facility] [address] [id number] [place] [address] Jun, [facility] [address] [id number] [place] [address] Jun, [facility] [address] [id number] [place] [address] Jun, [facility] [address] [id number] [place] [address] Jun, [facility] [address] [id number] [place] [address] Jun, [facility] [address] [id number] [place] [address] Jun, [facility] [address] [id number] [place] [address] Jun, [facility] [address] [id number] [place] [address] Jun, [facility] [address] [id number] [place] [address] Jun, [facility] [address] [id number] [place] [address] Jun, [facility] [address] [id number] [place] [address] Jun, [facility] [address] [id number] [place] [address] 08 Jun, 2014 [facility] [address] [id number] [place] [address] Jun, [facility] [address] [id number] [place] [address] Jun, [facility] [address] [id number] [place] [address] Jun, [facility] [address] [id number] [place] [address] Jun, [facility] [address] [id number] [place] [address] Jun, [facility] [address] [id number] [place] [address] Jun, [facility] [address] [id number] [place] [address] Jun, [facility] [address] [id number] [place] [address] May, [facility] [address] [id number] [place] [address] May, [facility] [address] [id number] [place] [address] May, [facility] [address] [id number] [place] [address] May, [facility] [address] [id number] [place] [address] May, [facility] [address] [id number] [place] [address] Apr, [facility] [id number] [place] [address] Apr, [facility] [address] [id number] [place] [address] Apr, [facility] [address] [id number] [place] [address] Apr, [facility] [address] [facility] [id number] [place] [address] Apr, [facility] [address] [facility] [id number] [place] [address] Apr, [facility] [address] [id number] [place] [address] Apr, [facility] [address] [id number] [place] [address] Apr, [facility] [address] [facility] [id number] [place] [address] Mar, [facility] [address] [id number] [place] [address] Mar, [facility] [address] [id number] [place] [address] Mar, [facility] [address] [id number] [place] [address] Mar, [facility] [address] [id number] [place] [address] Mar, [facility] [address] [id number] [place] [address] Mar, [facility] [address] [facility] [id number] [place] [address] Mar, [facility] [address] [facility] [id number] [place] [address] Mar, [facility] [address] [facility] [id number] [place] [address] Mar, [facility] [address] [facility] [id number] [place] [address] Mar, [facility] [address] [id number] [place] [address] Mar, [facility] [address] [id number] [place] [address] Mar, [facility] [address] [id number] [place] [address] 15 Mar, 2014 [facility] [address] [id number] [place] [address] Mar, [facility] [address] [id number] [place] [address] Mar, [facility] [address] [id number] [place] [address] Mar, [facility] [address] [id number] [place] [address] Mar, [facility] [address] [id number] [place] [address] Mar, [facility] [address] [id number] [place] [address] Mar, [facility] [address] [facility] [id number] [place] [address] Mar, [facility] [address] [facility] [id number] [place] [address] 24 Feb, 2013 [facility] [address] [facility] [id number] [place] [address] 24 Feb, 2013 [facility] [address] [facility] [id number] [place] [address] Feb, 2013 [facility] [address] [facility] [id number] [place] [address] Feb, 2013 [facility] [address] [id number] [place] [address] Feb, 2013 [facility] [address] [facility] [id number] [place] [address] 11 Feb, 2013 [facility] [address] [id number] [place] [address] 05 Feb, 2013 [facility] [address] [id number] [place] [address] 05 Feb, 2013 [facility] [address] [id number] [place] [address] Jan, [facility] [address] [id number] [place] [address] Jan, [facility] [address] [facility] [id number] [place] [address] Jan, [facility] [address] [id number] [place] [address] Jan, [facility] [address] [facility] [id number] [place] [address] Dec, [facility] [address] [facility] [id number] [place] [address] Dec, [facility] [address] [facility] [id number] [place] [address] Dec, [facility] [address] [id number] [place] [address] Dec, [facility] [address] [id number] [place] [address] Dec, [facility] [address] [id number] [place] [address] Dec, [facility] [address] [facility] [id number] [place] [address] Dec, [facility] [address] [facility] [id number] [place] [address] Dec, [facility] [address] [facility] [id number] [place] [address] Dec, [facility] [address] [facility] [id number] [place] [address] Dec, [facility] [address] [facility] [id number] [place] [address] Nov, [facility] [address] [facility] [id number] [place] [address] Nov, [facility] [address] [facility] [id number] [place] [address] Nov, [facility] [address] [facility] [id number] [place] [address] Nov, [facility] [address] [facility] [id number] [facility] [place] [address] Nov, [facility] [address] [facility] [id number] [facility] [place] [address] Nov, [facility] [address] [facility] [id number] [place] [address] Nov, [facility] [address] [facility] [id number] [facility] [place] [address] Nov, [facility] [address] [facility] [id number] [facility] [place] [address] Nov, [facility] [address] [facility] [id number] [place] [address] Nov, [facility] [address] [id number] [place] [address] Nov, [facility] [address] [facility] [id number] [place] [address] Nov, [facility] [address] [facility] [id number] [place] [address] October, [facility] [address] [facility] [id number] [place] [address] October, [facility] [address] [facility] [id number] [place] [address] October, [facility] [address] [facility] [id number] [place] [address] October, [facility] [address] [facility] [id number] [place] [address] October, [facility] [address] [facility] [id number] [place] [address] October, [facility] [address] [facility] [id number] [place] [address] October, [facility] [address] [id number] [place] [address] October, [facility] [address] [id number] [facility] [place] [address] October, [facility] [address] [id number] [place] [address] October, [facility] [address] [facility] [id number] [place] [address] Sep, [facility] [address] [facility] [id number] [place] [address] Sep, [facility] [address] [id number] [place] [address] Sep, [facility] [address] [facility] [id number] [place] [address] Sep, [facility] [address] [id number] [place] [address] Sep, [facility] [address] [id number] [place] [address] Sep, [facility] [address] [id number] [place] [address] Sep, [facility] [address] [id number] [place] [address] Sep, [facility] [address] [id number] [place] [address] Aug, [facility] [address] [id number] [place] [address] Aug, [facility] [address] [facility] [id number] [place] [address] Aug, [facility] [address] [id number] [place] [address] Aug, [facility] [address] [id number] [place] [address] Aug, [facility] [address] [id number] [place] [address] Aug, [facility] [address] [facility] [id number] [place] [address] Aug, [facility] [address] [facility] [id number] [place] [address] Aug, [facility] [address] [id number] [place] [address] Jul, [facility] [address] [facility] [id number] [place] [address] Jul, [facility] [address] [facility] [id number] [place] [address] Jul, [facility] [address] [id number] [place] [address] Jul, [facility] [address] [facility] [id number] [place] [address] Jul, [facility] [address] [facility] [id number] [place] [address] Jul, [facility] [address] [id number] [place] [address] Jul, [facility] [address] [facility] [id number] [place] [address] Jul, [facility] [address] [facility] [id number] [place] [address] Jun, [facility] [address] [id number] [place] [address] Jun, [facility] [address] [id number] [place] [address] Jun, [facility] [address] [id number] [place] [address] Jun, [facility] [address] [id number] [place] [address] Jun, [facility] [address] [id number] [place] [address] Jun, [facility] [address] [id number] [place] [address] Jun, [facility] [address] [id number] [place] [address] Jun, [facility] [address] [id number] [place] [address] May, [facility] [address] [id number] [place] [address] May, [facility] [address] [id number] [place] [address] May, [facility] [address] [id number] [place] [address] May, [facility] [address] [id number] [place] [address] May, [facility] [address] [id number] [place] [address] May, [facility] [address] [id number] [place] [address] Apr, [facility] [address] [id number] [place] [address] Apr, [facility] [address] [id number] [place] [address] Mar, [facility] [address] [id number] [place] [address] Mar, [facility] [address] [id number] [place] [address] Mar, [facility] [address] [id number] [place] [address] Mar, [facility] [address] [id number] [place] [address] Mar, [facility] [address] [id number] [place] [address] Feb, [facility] [address] [id number] [place] [address] Jan, [facility] [address] [id number] [place] [address] Jan, [facility] [address] [id number] [place] [address] Jan, [facility] [address] [id number] [place] [address] Jan, [facility] [address] [id number] [place] [address] Jan, [facility] [address] [id number] [place] [address] Dec, [facility] [address] [id number] [place] [address] Dec, [facility] [address] [id number] [place] [address] Dec, [facility] [address] [id number] [place] [address] Dec, [facility] [address] [id number] [place] [address] Nov, [facility] [address] [id number] [place] [address] Nov, [facility] [address] [id number] [place] [address] Nov, [facility] [address] [id number] [place] [address] October, [facility] [address] [id number] [place] [address] October, [facility] [address] [id number] [place] [address] October, [facility] [address] [id number] [place] [address] Sep, [facility] [address] [id number] [place] [address] Sep, [facility] [address] [id number] [place] [address] Aug, [facility] [address] [id number] [place] [address] Aug, [facility] [address] [id number] [place] [address] Jul, [facility] [address] [id number] [place] [address] Jul, [facility] [address] [id number] [place] [address] Jul, [facility] [address] [id number] [place] [address] Jul, [facility] [address] [id number] [place] [address] Jul, [facility] [address] [id number] [place] [address] Jun, [facility] [address] [id number] [place] [address] May, [facility] [address] [id number] [place] [address] 31 May, 2012 [facility] [address] [id number] [place] [address] May, [facility] [address] [id number] [place] [address] 14 May, 2012 [facility] [address] [id number] [place] [address] May, [facility] [address] [id number] [place] [address] May, [facility] [address] [id number] [place] [address] May, [facility] [address] [id number] [place] [address] May, [facility] [address] [id number] [place] [address] Apr, [facility] [address] [id number] [place] [address] Apr, [facility] [address] [id number] [place] [address] Apr, [facility] [address] [id number] [place] [address] Apr, [facility] [address] [id number] [place] [address] Mar, [facility] [address] [id number] [place] [address] Mar, [facility] [address] [id number] [place] [address] Mar, [facility] [address] [id number] [place] [address] Feb, [facility] [address] [id number] [place] [address] Feb, [facility] [address] [id number] [place] [address] Jan, [facility] [address] [id number] [place] [address] Jan, [facility] [address] [id number] [place] [address] Jan, [facility] [address] [id number] [place] [address] Dec, [facility] [address] [id number] [place] [address] Dec, [facility] [address] [id number] [place] [address] Dec, [facility] [address] [id number] [place] [address] Dec, [facility] [id number] [place] [address] Nov, [facility] [address] [id number] [place] [address] Nov, [facility] [address] [id number] [place] [address] Nov, [facility] [address] [id number] [place] [address] October, [facility] [address] [id number] [place] [address] October, [facility] [address] [id number] [place] [address] October, [facility] [address] [id number] [place] [address] Sep, [facility] [address] [id number] [place] [address] Sep, [facility] [address] [id number] [place] [address] Sep, [facility] [address] [id number] [place] [address] Aug, [facility] [id number] [place] [address] Aug, [facility] [address] [id number] [place] [address] Aug, [facility] [address] [id number] [place] [address] Jul, [facility] [address] [id number] [place] [address] Jun, [facility] [address] [id number] [place] [address] Jun, [facility] [address] [id number] [place] [address] May, [facility] [address] [id number] [place] [address] May, [facility] [address] [id number] [place] [address] May, [facility] [address] [id number] [place] [address] May, [facility] [address] [id number] [place] [address] Apr, [facility] [address] [facility] [id number] [place] [address] Apr, [facility] [id number] [place] [address] Apr, [facility] [id number] [place] [address] Apr, [facility] [id number] [place] [address] Apr, [facility] [address] [id number] [place] [address] Mar, [facility] [id number] [place] [address] Mar, [facility] [id number] [place] [address] Jan, [facility] [id number] [place] [address] May, [facility] [id number] [place] [address] Apr, [facility] [id number] [place] [address] Mar, [facility] [id number] [place] [address] Jun, [facility] [id number] [place] [address] Apr, [facility] [id number] [place] [address] Apr, IMMUNIZATIONS No Known Immunizations SOCIAL HISTORY Never Assessed REASON FOR VISIT PLAN OF CARE VITAL SIGNS MEDICATIONS Unknown Medications RESULTS No Results PROCEDURES No Known procedures INSTRUCTIONS MEDICATIONS ADMINISTERED No Known Medications MEDICAL (GENERAL) HISTORY Type Description Date Medical History seizures Surgical History No Surgical history information
--- OUTSIDE RECORDS SUMMARY | 2019-09-07 02:53 | XMS REPORT ---
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 Activ e 979461932 Problem Impulse control disorder F63.9 Activ e 35013447 Problem Depressive disorder F32.9 Active 54478866 Problem Mild intellectual disabilities F70 Active 76119639 Problem Seasonal allergic rhinitis due to pollen J30.1 Active 69139491 ALLERGIES No Information ENCOUNTERS Encounter Location Date Diagnosis [place] [address] [address] May, [place] [address] [address] Apr, [place] [address] [address] Apr, Depressive disorder F32.9 ; Impulse cont rol disorder F63.9 and Mild intellectual disabilities F70 [place] [address] [address] Apr, [facility] [address] [address] Apr, [facility] [address] [address] Apr, [place] [address] [address] Apr, Impulse control disorder F63.9 ; Depress douglas disorder F32.9 and Mild intellectual disabilities F70 [place] [address] [place] [address] Mar, [facility] [address] [place] [id number] [place] [address] Mar, [facility] [address] [address] Mar, Encounter for immunization Z23 [facility] [address] [address] Dec, [facility] [address] [address] Dec, Seasonal allergic rhinitis due to pollen J30.1 [facility] [address] [address] October, Depressive disorder F32.9 ; Impulse cont rol disorder F63.9 and Mild intellectual disabilities F70 [facility] [address] [address] Jun, Impulse control disorder F63.9 ; Mild in tellectual disabilities F70 ; Relationship dysfunction Z63.9 and Depressive disorder F32.9 [facility] [address] [address] Jun, [facility] [address] [address] May, [facility] [address] [address] May, [facility] [address] [address] May, Encounter for immunization Z23 [facility] [address] [address] Apr, [facility] [address] [address] Apr, [facility] [address] [address] Mar, [facility] [address] [address] Mar, [facility] [address] [place] [id number] [place] [address] 26 Feb, 2018 Annual physical exam Z00.00 [facility] [address] [address] 25 Feb, 2018 Annual physical exam Z00.00 ; Mild intel lectual disabilities F70 and Encounter for immunization Z23 [facility] [address] [address] 11 Feb, 2018 [facility] [address] [address] Jan, [facility] [address] [address] Jan, Impulse control disorder F63.9 ; Mild in tellectual disabilities F70 and Depressive disorder F32.9 [facility] [address] [address] Nov, [facility] [address] [address] Nov, [facility] [address] [address] Nov, [facility] [address] [address] Nov, [facility] [address] [address] Nov, [facility] [address] [address] 05 Nov, 2017 Impulse control disorder F63.9 ; Depress douglas disorder F32.9 and Mild intellectual disabilities F70 [facility] [address] [address] October, [facility] [address] [address] October, Impulse control disorder F63.9 ; Depress douglas disorder F32.9 and Mild intellectual disabilities F70 [facility] [address] [address] Sep, [facility] [address] [address] Sep, Impulse control disorder F63.9 ; Depress douglas disorder F32.9 and Mild intellectual disabilities F70 [facility] [address] [address] Sep, Impulse control disorder F63.9 ; Depress douglas disorder F32.9 and Mild intellectual disabilities F70 [facility] [address] [address] Aug, [facility] [address] [address] Aug, Impulse control disorder F63.9 ; Depress douglas disorder F32.9 and Mild intellectual disabilities F70 [facility] [address] [id number] Aug, Dental examination Z01.20 [facility] [address] [address] Aug, [facility] [address] [address] Aug, Impulse control disorder F63.9 ; Depress douglas disorder F32.9 and Mild intellectual disabilities F70 [facility] [address] [address] Jul, Impulse control disorder F63.9 ; Depress douglas disorder F32.9 and Mild intellectual disabilities F70 [facility] [address] [id number] Jul, Dental examination Z01.20 [facility] [address] [address] Jul, [facility] [address] [address] Jun, Impulse control disorder F63.9 ; Depress douglas disorder F32.9 and Mild intellectual disabilities F70 [facility] [address] [address] 08 Jun, 2017 Impulse control disorder F63.9 ; Depress douglas disorder F32.9 and Mild intellectual disabilities F70 [facility] [address] [address] Jun, [facility] [address] [address] May, [facility] [address] [address] May, Impulse control disorder F63.9 ; Depress douglas disorder F32.9 and Mild intellectual disabilities F70 [place] [address] [address] Apr, Impulse control disorder F63.9 ; Depress douglas disorder F32.9 and Mild intellectual disabilities F70 [place] [address] [address] Apr, Seizures R56.9 [place] [address] [address] Apr, [place] [address] [address] Apr, Seizures R56.9 ; Tobacco abuse Z72.0 ; A lcohol abuse F10.10 and Encounter for immunization Z23 [place] [address] [address] Apr, Impulse control disorder F63.9 ; Depress douglas disorder F32.9 and Mild intellectual disabilities F70 [facility] [address] [address] Mar, Impulse control disorder F63.9 ; Depress douglas disorder F32.9 and Mild intellectual disabilities F70 [facility] [address] [address] Mar, [facility] [address] [address] Mar, Impulse control disorder F63.9 ; Depress douglas disorder F32.9 and Mild intellectual disabilities F70 [facility] [address] [address] Mar, [facility] [address] [address] Feb, Impulse control disorder F63.9 ; Depress douglas disorder F32.9 and Mild intellectual disabilities F70 [facility] [address] [address] Feb, [facility] [address] [address] Feb, Impulse control disorder F63.9 ; Depress douglas disorder F32.9 and Mild intellectual disabilities F70 [facility] [address] [address] Jan, Annual physical exam Z00.00 ; Right hand pain M79.641 ; Impulse control disorder F63.9 ; Mild intellectual disabilities F70 and Depressive disorder F32.9 [facility] [address] [address] Jan, Impulse control disorder F63.9 ; Depress douglas disorder F32.9 and Mild intellectual disabilities F70 [facility] [address] [address] Jan, [facility] [address] [address] Jan, Impulse control disorder F63.9 ; Depress douglas disorder F32.9 and Mild intellectual disabilities F70 [facility] [address] [address] Jan, Impulse control disorder F63.9 ; Depress douglas disorder F32.9 and Mild intellectual disabilities F70 [facility] [address] [address] Dec, [facility] [address] [address] Dec, Impulse control disorder F63.9 ; Depress douglas disorder F32.9 and Mild intellectual disabilities F70 [facility] [address] [address] Nov, Impulse control disorder F63.9 ; Depress douglas disorder F32.9 and Mild intellectual disabilities F70 [facility] [address] [address] Nov, [facility] [address] [address] Nov, [facility] [address] [address] Nov, [facility] [address] [address] October, Impulse control disorder F63.9 ; Depress douglas disorder F32.9 and Mild intellectual disabilities F70 [facility] [address] [address] October, [facility] [address] [address] October, Impulse control disorder F63.9 ; Depress douglas disorder F32.9 and Mild intellectual disabilities F70 [facility] [address] [address] Sep, [facility] [address] [address] Sep, Impulse control disorder F63.9 ; Depress douglas disorder F32.9 and Mild intellectual disabilities F70 [facility] [address] [address] Sep, Seasonal allergic rhinitis due to pollen J30.1 [facility] [address] [address] Sep, [facility] [address] [address] Sep, [facility] [address] [address] Sep, Impulse control disorder F63.9 ; Depress douglas disorder F32.9 and Mild intellectual disabilities F70 [facility] [address] [address] Aug, Impulse control disorder F63.9 ; Depress douglas disorder F32.9 and Mild intellectual disabilities F70 [facility] [address] [address] Aug, [facility] [address] [address] Aug, [facility] [address] [address] Jul, [facility] [address] [address] Jul, Impulse control disorder F63.9 ; Depress douglas disorder F32.9 and Mild intellectual disabilities F70 [facility] [address] [id number] Jul, Dental examination Z01.20 [facility] [address] [address] Jul, Impulse control disorder F63.9 ; Depress douglas disorder F32.9 and Mild intellectual disabilities F70 [facility] [address] [address] Jul, [facility] [address] [address] Jun, [facility] [address] [address] Jun, Impulse control disorder F63.9 ; Depress douglas disorder F32.9 and Mild intellectual disabilities F70 [facility] [address] [address] Jun, [facility] [address] [address] Jun, [facility] [address] [address] Jun, Impulse control disorder F63.9 ; Depress douglas disorder F32.9 and Mild intellectual disabilities F70 [facility] [address] [address] May, Impulse control disorder F63.9 ; Depress oduglas disorder F32.9 and Mild intellectual disabilities F70 [facility] [address] [address] May, Annual physical exam Z00.00 ; Other fati sarah R53.83 ; Seizures R56.9 ; Mild intellectual disabilities F70 and Impulse control disorder F63.9 [facility] [address] [address] May, [facility] [address] [address] May, Impulse control disorder F63.9 ; Depress douglas disorder F32.9 and Mild intellectual disabilities F70 [facility] [address] [id number] 30 Apr, 2016 Encounter for dental examination Z01.20 [facility] [address] [address] Apr, Impulse control disorder F63.9 ; Depress douglas disorder F32.9 and Mild intellectual disabilities F70 [facility] [address] [address] Apr, [facility] [address] [address] Mar, Impulse control disorder F63.9 ; Depress douglas disorder F32.9 and Mild intellectual disabilities F70 [facility] [address] [address] Mar, Impulse control disorder F63.9 ; Depress douglas disorder F32.9 and Mild intellectual disabilities F70 [facility] [address] [address] Mar, [facility] [address] [address] Mar, [facility] [address] [address] Feb, Impulse control disorder F63.9 ; Depress douglas disorder F32.9 and Mild intellectual disabilities F70 [facility] [address] [address] Feb, Impulse control disorder F63.9 ; Depress douglas disorder F32.9 and Mild intellectual disabilities F70 [facility] [address] [address] Feb, [facility] [address] [address] Jan, Annual physical exam Z00.00 ; Impulse co ntrol disorder F63.9 ; Mild intellectual disabilities F70 ; Depressive disorder F32.9 and Seizures R56.9 [facility] [address] [address] Jan, Impulse control disorder F63.9 ; Depress douglas disorder F32.9 and Mild intellectual disabilities F70 [facility] [address] [address] Jan, [facility] [address] [address] Jan, Impulse control disorder F63.9 ; Depress douglas disorder F32.9 and Mild intellectual disabilities F70 [facility] [address] [address] Jan, [facility] [address] [address] Jan, [facility] [address] [address] Dec, Impulse control disorder F63.9 ; Depress douglas disorder F32.9 and Mild intellectual disabilities F70 [facility] [address] [address] Dec, Impulse control disorder F63.9 ; Depress douglas disorder F32.9 and Mild intellectual disabilities F70 [facility] [address] [address] Dec, [facility] [address] [address] Dec, Depressive disorder F32.9 ; Impulse cont rol disorder F63.9 and Mild intellectual disabilities F70 [facility] [address] [address] Nov, [facility] [address] [address] Nov, Depressive disorder F32.9 ; Impulse cont rol disorder F63.9 and Mild intellectual disabilities F70 [facility] [address] [address] Nov, [facility] [address] [address] October, Depressive disorder F32.9 ; Impulse cont rol disorder F63.9 and Mild intellectual disabilities F70 [facility] [address] [address] October, [facility] [address] [address] October, [facility] [address] [address] October, Depressive disorder F32.9 ; Impulse cont rol disorder F63.9 and Mild intellectual disabilities F70 [facility] [address] [address] October, [facility] [address] [address] Sep, [facility] [address] [address] Sep, Depressive disorder F32.9 ; Impulse cont rol disorder F63.9 and Mild intellectual disabilities F70 [facility] [address] [address] Sep, Depressive disorder F32.9 ; Impulse cont rol disorder F63.9 and Mild intellectual disabilities F70 [facility] [address] [place] [address] Sep, [facility] [address] [address] Aug, [facility] [address] [place] [address] Aug, Depressive disorder F32.9 ; Impulse cont rol disorder F63.9 and Mild intellectual disabilities F70 [facility] [address] [address] Aug, Depressive disorder F32.9 ; Impulse cont rol disorder F63.9 and Mild intellectual disabilities F70 [facility] [address] [id number] Jul, Dental examination Z01.20 [facility] [address] [address] Jul, [facility] [address] [address] Jul, Depressive disorder F32.9 ; Impulse cont rol disorder F63.9 and Mild intellectual disabilities F70 [facility] [address] [address] 05 Jul, 2015 Depressive disorder F32.9 ; Impulse cont rol disorder F63.9 and Mild intellectual disabilities F70 [facility] [address] [address] Jul, Depression screening Z13.89 ; Drug juliae wm, 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 and Screening for STD sexually transmitted disease Z11.3 [facility] [address] [address] Jun, [facility] [address] [address] Jun, Depressive disorder F32.9 ; Impulse cont rol disorder F63.9 and Mild intellectual disabilities F70 [facility] [address] [address] Jun, Depressive disorder, not elsewhere class ified F32.9 ; Mild mental retardation F70 and Impulse control disorder F63.9 [facility] [address] [address] Jun, Depressive disorder, not elsewhere class ified F32.9 ; Impulse control disorder F63.9 and Mild intellectual disabilities F70 [facility] [address] [address] Jun, [facility] [address] [id number] Jun, Dental examination Z01.20 [facility] [address] [address] 17 May, 2015 Depressive disorder, not elsewhere class ified F32.9 ; Impulse control disorder F63.9 and Mild intellectual disabilities F70 [facility] [address] [address] May, [facility] [address] [address] May, [facility] [address] [address] May, Depressive disorder, not elsewhere class ified F32.9 ; Impulse control disorder F63.9 and Mild intellectual disabilities F70 [facility] [address] [address] May, Depressive disorder, not elsewhere class ified F32.9 ; Impulse control disorder F63.9 and Mild mental retardation F70 [facility] [address] [address] Apr, Depressive disorder, not elsewhere class ified F32.9 ; Impulse control disorder F63.9 and Mild intellectual disabilities F70 [facility] [address] [address] Apr, [facility] [address] [address] Mar, Depressive disorder, not elsewhere class ified F32.9 ; Impulse control disorder F63.9 and Mild intellectual disabilities F70 [facility] [address] [address] Mar, Depressive disorder, not elsewhere class ified F32.9 ; Impulse control disorder F63.9 and Mild intellectual disabilities F70 [place] [address] [address] Mar, [place] [address] [address] Mar, Encounter for immunization Z23 [place] [address] [address] Mar, Depressive disorder, not elsewhere class ified F32.9 ; Impulse control disorder F63.9 and Mild intellectual disabilities F70 [place] [address] [address] Feb, Depressive disorder, not elsewhere class ified 311 ; Impulse control disorder, unspecified 312.30 and Mild mental retardation 317 [place] [address] [address] Feb, [place] [address] [address] Feb, Depressive disorder, not elsewhere class ified 311 ; Impulse control disorder, unspecified 312.30 and Mild mental retardation [address] [place] [address] [address] Jan, Depressive disorder, not elsewhere class ified 311 ; Impulse control disorder, unspecified 312.30 and Mild mental retardation 317 [place] [address] [address] Jan, Depressive disorder, not elsewhere class ified 311 ; Impulse control disorder, unspecified 312.30 and Mild mental retardation 317 [place] [address] [address] Jan, [facility] [address] [place] [id number] [place] [address] Jan, Depressive disorder, not elsewhere class ified 311 ; Impulse control disorder, unspecified 312.30 and Mild mental retardation 317 [facility] [address] [place] [id number] [place] [address] Dec, Depressive disorder, not elsewhere class ified 311 ; Impulse control disorder, unspecified 312.30 and Mild mental retardation 317 [facility] [address] [place] [id number] [place] [address] Dec, [facility] [address] [id number] [place] [id number] Dec, Dental examination V72.2 [facility] [address] [place] [id number] [place] [address] Dec, Heat rash 705.1 ; Seizures 780.39 and Hi gh risk medication use V58.69 [facility] [address] [place] [id number] [place] [address] Dec, [facility] [address] [address] Dec, Depressive disorder, not elsewhere class ified 311 ; Impulse control disorder, unspecified 312.30 and Mild mental retardation 317 [facility] [address] [place] [id number] [place] [address] Nov, Depressive disorder, not elsewhere class ified 311 ; Impulse control disorder, unspecified 312.30 and Mild mental retardation 317 [facility] [address] [place] [id number] [place] [address] Nov, [facility] [address] [address] Nov, Nicotine addiction 305.1 [facility] [address] [place] [address] [id number] [place] [address] Nov, [facility] [address] [address] Nov, High risk medication use V58.69 [facility] [address] [place] [id number] [place] [address] 10 Nov, 2014 High risk medication use V58.69 [facility] [address] [address] Nov, Depressive disorder, not elsewhere class ified 311 ; Impulse control disorder, unspecified 312.30 and Mild mental retardation 317 [facility] [address] [address] Nov, Depressive disorder, not elsewhere class ified 311 ; 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 and Impulse control disorder, unspecified 312.30 [facility] [address] [address] October, Depressive disorder, not elsewhere class ified 311 ; Impulse control disorder, unspecified 312.30 and Mild mental retardation 317 [facility] [address] [address] October, [facility] [address] [address] October, Depressive disorder, not elsewhere class ified 311 ; Impulse control disorder, unspecified 312.30 and Mild mental retardation 317 [facility] [address] [address] October, [facility] [address] [id number] [place] [id number] October, Dental examination V72.2 [facility] [address] [id number] [place] [address] Sep, Depressive disorder, not elsewhere class ified 311 ; Impulse control disorder 312.30 and Mild mental retardation 317 [facility] [address] [address] Sep, [facility] [address] [address] Sep, [facility] [address] [address] Aug, [facility] [address] [id number] [place] [address] 26 Aug, 2014 [facility] [address] [id number] [place] [address] Aug, [facility] [address] [id number] [place] [address] Aug, 2014 [facility] [address] [id number] [place] [address] 16 Aug, 2014 [facility] [address] [id number] [place] [address] 16 Aug, 2014 [facility] [address] [id number] [place] [address] Aug, [facility] [address] [id number] [place] [address] Aug, 2014 [facility] [address] [id number] [place] [address] Jul, 2014 [facility] [address] [id number] [place] [address] Jul, 2014 [facility] [address] [id number] [place] [address] Jul, 2014 [facility] [address] [id number] [place] [address] Jul, 2014 [facility] [address] [id number] [place] [address] 16 Jul, 2014 [facility] [address] [id number] [place] [address] 16 Jul, 2014 [facility] [address] [id number] [place] [address] 16 Jul, 2014 [facility] [address] [id number] [place] [address] 16 Jul, 2014 [facility] [address] [id number] [place] [address] 11 Jul, 2014 [facility] [address] [id number] [place] [address] Jul, [facility] [address] [facility] [id number] [place] [address] Jul, [facility] [address] [id number] [place] [address] Jul, [facility] [address] [id number] [place] [address] Jul, [facility] [address] [id number] [place] [address] Jul, [facility] [address] [id number] [place] [address] Jun, [facility] [address] [id number] [place] [address] Jun, [facility] [address] [id number] [place] [address] Jun, [facility] [address] [id number] [place] [address] Jun, [facility] [address] [id number] [place] [address] Jun, [facility] [address] [id number] [place] [address] Jun, [facility] [address] [id number] [place] [address] Jun, [facility] [address] [id number] [place] [address] Jun, [facility] [address] [id number] [place] [address] Jun, [facility] [address] [id number] [place] [address] Jun, [facility] [address] [id number] [place] [address] Jun, [facility] [address] [id number] [place] [address] Jun, [facility] [address] [id number] [place] [address] 08 Jun, 2014 [facility] [address] [id number] [place] [address] Jun, [facility] [address] [id number] [place] [address] Jun, [facility] [address] [id number] [place] [address] Jun, [facility] [address] [id number] [place] [address] Jun, [facility] [address] [id number] [place] [address] Jun, [facility] [address] [id number] [place] [address] Jun, [facility] [address] [id number] [place] [address] Jun, [facility] [address] [id number] [place] [address] May, [facility] [address] [id number] [place] [address] May, [facility] [address] [id number] [place] [address] May, [facility] [address] [id number] [place] [address] May, [facility] [address] [id number] [place] [address] May, [facility] [address] [id number] [place] [address] Apr, [facility] [id number] [place] [address] Apr, [facility] [address] [id number] [place] [address] Apr, [facility] [address] [id number] [place] [address] Apr, [facility] [address] [facility] [id number] [place] [address] Apr, [facility] [address] [facility] [id number] [place] [address] Apr, [facility] [address] [id number] [place] [address] Apr, [facility] [address] [id number] [place] [address] Apr, [facility] [address] [facility] [id number] [place] [address] Mar, [facility] [address] [id number] [place] [address] Mar, [facility] [address] [id number] [place] [address] Mar, [facility] [address] [id number] [place] [address] Mar, [facility] [address] [id number] [place] [address] Mar, [facility] [address] [id number] [place] [address] Mar, [facility] [address] [id number] [place] [address] Mar, [facility] [address] [id number] [place] [address] Mar, [facility] [address] [facility] [id number] [place] [address] Mar, [facility] [address] [facility] [id number] [place] [address] Mar, [facility] [address] [id number] [place] [address] Mar, [facility] [address] [id number] [place] [address] Mar, [facility] [address] [id number] [place] [address] 15 Mar, 2014 [facility] [address] [id number] [place] [address] Mar, [facility] [address] [id number] [place] [address] Mar, [facility] [address] [id number] [place] [address] Mar, [facility] [address] [id number] [place] [address] Mar, [facility] [address] [id number] [place] [address] Mar, [facility] [address] [id number] [place] [address] Mar, [facility] [address] [id number] [place] [address] Mar, [facility] [address] [id number] [place] [address] 24 Feb, 2013 [facility] [address] [id number] [place] [address] 24 Feb, 2013 [facility] [address] [id number] [place] [address] Feb, 2013 [facility] [address] [id number] [place] [address] Feb, 2013 [facility] [address] [id number] [place] [address] Feb, 2013 [facility] [address] [id number] [place] [address] 11 Feb, 2013 [facility] [address] [id number] [place] [address] 05 Feb, 2013 [facility] [address] [id number] [place] [address] 05 Feb, 2013 [facility] [address] [id number] [place] [address] Jan, [facility] [address] [id number] [place] [address] Jan, [facility] [address] [facility] [id number] [place] [address] Jan, [facility] [address] [id number] [place] [address] Jan, [facility] [address] [id number] [place] [address] Dec, [facility] [address] [facility] [id number] [place] [address] Dec, [facility] [address] [facility] [id number] [place] [address] Dec, [facility] [address] [id number] [place] [address] Dec, [facility] [address] [id number] [place] [address] Dec, [facility] [address] [id number] [place] [address] Dec, [facility] [address] [id number] [place] [address] Dec, [facility] [address] [id number] [place] [address] Dec, [facility] [address] [id number] [place] [address] Dec, [facility] [address] [id number] [place] [address] Dec, [facility] [address] [facility] [id number] [place] [address] Nov, [facility] [address] [id number] [place] [address] Nov, [facility] [address] [id number] [place] [address] Nov, [facility] [address] [id number] [place] [address] Nov, [facility] [address] [facility] [id number] [place] [address] Nov, [facility] [address] [facility] [id number] [place] [address] Nov, [facility] [address] [facility] [id number] [place] [address] Nov, [facility] [address] [facility] [id number] [place] [address] Nov, [facility] [address] [facility] [id number] [place] [address] Nov, [facility] [address] [facility] [id number] [place] [address] Nov, [facility] [address] [id number] [place] [address] Nov, [facility] [address] [id number] [place] [address] Nov, [facility] [address] [facility] [id number] [place] [address] October, [facility] [address] [id number] [place] [address] October, [facility] [address] [facility] [id number] [place] [address] October, [facility] [address] [id number] [place] [address] October, [facility] [address] [facility] [id number] [place] [address] October, [facility] [address] [facility] [id number] [place] [address] October, [facility] [address] [facility] [id number] [place] [address] October, [facility] [address] [id number] [place] [address] October, [facility] [address] [id number] [place] [address] October, [facility] [address] [id number] [place] [address] October, [facility] [address] [id number] [place] [address] Sep, [facility] [address] [id number] [place] [address] Sep, [facility] [address] [id number] [place] [address] Sep, [facility] [address] [id number] [place] [address] Sep, [facility] [address] [id number] [place] [address] Sep, [facility] [address] [id number] [place] [address] Sep, [facility] [address] [id number] [place] [address] Sep, [facility] [address] [id number] [place] [address] Sep, [facility] [address] [id number] [place] [address] Aug, [facility] [address] [id number] [place] [address] Aug, [facility] [address] [id number] [place] [address] Aug, [facility] [address] [id number] [place] [address] Aug, [facility] [address] [id number] [place] [address] Aug, [facility] [address] [id number] [place] [address] Aug, [facility] [address] [id number] [place] [address] Aug, [facility] [address] [id number] [place] [address] Aug, [facility] [address] [id number] [place] [address] Jul, [facility] [address] [id number] [place] [address] Jul, [facility] [address] [id number] [place] [address] Jul, [facility] [address] [id number] [place] [address] Jul, [facility] [address] [id number] [place] [address] Jul, [facility] [address] [id number] [place] [address] Jul, [facility] [address] [id number] [place] [address] Jul, [facility] [address] [id number] [place] [address] Jul, [facility] [address] [id number] [place] [address] Jun, [facility] [address] [id number] [place] [address] Jun, [facility] [address] [id number] [place] [address] Jun, [facility] [address] [id number] [place] [address] Jun, [facility] [address] [id number] [place] [address] Jun, [facility] [address] [id number] [place] [address] Jun, [facility] [address] [id number] [place] [address] Jun, [facility] [address] [id number] [place] [address] Jun, [facility] [address] [id number] [place] [address] May, [facility] [address] [id number] [place] [address] May, [facility] [address] [id number] [place] [address] May, [facility] [address] [id number] [place] [address] May, [facility] [address] [id number] [place] [address] May, [facility] [address] [id number] [place] [address] May, [facility] [address] [id number] [place] [address] Apr, [facility] [address] [id number] [place] [address] Apr, [facility] [address] [id number] [place] [address] Mar, [facility] [address] [id number] [place] [address] Mar, [facility] [address] [id number] [place] [address] Mar, [facility] [address] [id number] [place] [address] Mar, [facility] [address] [id number] [place] [address] Mar, [facility] [address] [id number] [place] [address] Feb, [facility] [address] [id number] [place] [address] Jan, [facility] [address] [id number] [place] [address] Jan, [facility] [address] [id number] [place] [address] Jan, [facility] [address] [id number] [place] [address] Jan, [facility] [address] [id number] [place] [address] Jan, [facility] [address] [id number] [place] [address] Dec, [facility] [address] [id number] [place] [address] Dec, [facility] [address] [id number] [place] [address] Dec, [facility] [address] [id number] [place] [address] Dec, [facility] [address] [id number] [place] [address] Nov, [facility] [address] [id number] [place] [address] Nov, [facility] [address] [id number] [place] [address] Nov, [facility] [address] [id number] [place] [address] October, [facility] [address] [id number] [place] [address] October, [facility] [address] [id number] [place] [address] October, [facility] [address] [id number] [place] [address] Sep, [facility] [address] [id number] [place] [address] Sep, [facility] [address] [id number] [place] [address] Aug, [facility] [address] [id number] [place] [address] Aug, [facility] [address] [id number] [place] [address] Jul, [facility] [address] [id number] [place] [address] Jul, [facility] [address] [id number] [place] [address] Jul, [facility] [address] [id number] [place] [address] Jul, [facility] [address] [id number] [place] [address] Jul, [facility] [address] [id number] [place] [address] Jun, [facility] [address] [id number] [place] [address] May, [facility] [address] [id number] [place] [address] 31 May, 2012 [facility] [address] [id number] [place] [address] May, [facility] [address] [id number] [place] [address] 14 May, 2012 [facility] [address] [id number] [place] [address] May, [facility] [address] [id number] [place] [address] May, [facility] [address] [id number] [place] [address] May, [facility] [address] [id number] [place] [address] May, [facility] [address] [id number] [place] [address] Apr, [facility] [address] [id number] [place] [address] Apr, [facility] [address] [id number] [place] [address] Apr, [facility] [address] [id number] [place] [address] Apr, [facility] [address] [id number] [place] [address] Mar, [facility] [address] [id number] [place] [address] Mar, [facility] [address] [id number] [place] [address] Mar, [facility] [address] [id number] [place] [address] Feb, [facility] [address] [id number] [place] [address] Feb, [facility] [address] [id number] [place] [address] Jan, [facility] [address] [id number] [place] [address] Jan, [facility] [address] [id number] [place] [address] Jan, [facility] [address] [id number] [place] [address] Dec, [facility] [address] [id number] [place] [address] Dec, [facility] [address] [id number] [place] [address] Dec, [facility] [address] [id number] [place] [address] Dec, [facility] [id number] [place] [address] Nov, [facility] [address] [id number] [place] [address] Nov, [facility] [address] [id number] [place] [address] Nov, [facility] [address] [id number] [place] [address] October, [facility] [address] [id number] [place] [address] October, [facility] [address] [id number] [place] [address] October, [facility] [address] [id number] [place] [address] Sep, [facility] [address] [id number] [place] [address] Sep, [facility] [address] [id number] [place] [address] Sep, [facility] [address] [id number] [place] [address] Aug, [facility] [id number] [place] [address] Aug, [facility] [address] [id number] [place] [address] Aug, [facility] [address] [id number] [place] [address] Jul, [facility] [address] [id number] [place] [address] Jun, [facility] [address] [id number] [place] [address] Jun, [facility] [address] [id number] [place] [address] May, [facility] [address] [id number] [place] [address] May, [facility] [address] [id number] [place] [address] May, [facility] [address] [id number] [place] [address] May, [facility] [address] [id number] [place] [address] Apr, [facility] [id number] [place] [address] Apr, [facility] [id number] [place] [address] Apr, [facility] [id number] [place] [address] Apr, [facility] [id number] [place] [address] Apr, [facility] [id number] [place] [address] Mar, [facility] [id number] [place] [address] Mar, [facility] [id number] [place] [address] Jan, [facility] [id number] [place] [address] May, [facility] [id number] [place] [address] Apr, [facility] [id number] [place] [address] Mar, [facility] [id number] [place] [address] Jun, [facility] [id number] [place] [address] Apr, [facility] [id number] [place] [address] Apr, IMMUNIZATIONS No Known Immunizations SOCIAL HISTORY Never Assessed REASON FOR VISIT PLAN OF CARE VITAL SIGNS Height 76 in 2013-10-08 Weight 216.2 lbs 2013-10-08 Heart Rate 84 bpm 2013-10-08 Blood pressure systolic 118 mmHg 2013-10-08 Blood pressure diastolic 82 mmHg 2013-10-08 MEDICATIONS Unknown Medications RESULTS No Results PROCEDURES No Known procedures INSTRUCTIONS MEDICATIONS ADMINISTERED No Known Medications MEDICAL (GENERAL) HISTORY Type Description Date Medical History seizures Surgical History No Surgical history information
--- OUTSIDE RECORDS SUMMARY | 2019-09-07 02:54 | XMS REPORT ---
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 Activ e 901171829 Problem Impulse control disorder F63.9 Activ e 86888734 Problem Depressive disorder F32.9 Active 19183118 Problem Mild intellectual disabilities F70 Active 57958772 Problem Seasonal allergic rhinitis due to pollen J30.1 Active 29207510 ALLERGIES No Information ENCOUNTERS Encounter Location Date Diagnosis [place] [address] [address] May, [place] [address] [address] Apr, [place] [address] [address] Apr, Depressive disorder F32.9 ; Impulse cont rol disorder F63.9 and Mild intellectual disabilities F70 [place] [address] [address] Apr, [facility] [address] [address] Apr, [facility] [address] [address] Apr, [place] [address] [address] Apr, Impulse control disorder F63.9 ; Depress douglas disorder F32.9 and Mild intellectual disabilities F70 [place] [address] [place] [address] Mar, [facility] [address] [place] [id number] [place] [address] Mar, [facility] [address] [address] Mar, Encounter for immunization Z23 [facility] [address] [address] Dec, [facility] [address] [address] Dec, Seasonal allergic rhinitis due to pollen J30.1 [facility] [address] [address] October, Depressive disorder F32.9 ; Impulse cont rol disorder F63.9 and Mild intellectual disabilities F70 [facility] [address] [address] Jun, Impulse control disorder F63.9 ; Mild in tellectual disabilities F70 ; Relationship dysfunction Z63.9 and Depressive disorder F32.9 [facility] [address] [address] Jun, [facility] [address] [address] May, [facility] [address] [address] May, [facility] [address] [address] May, Encounter for immunization Z23 [facility] [address] [address] Apr, [facility] [address] [address] Apr, [facility] [address] [address] Mar, [facility] [address] [address] Mar, [facility] [address] [place] [id number] [place] [address] 26 Feb, 2018 Annual physical exam Z00.00 [facility] [address] [address] 25 Feb, 2018 Annual physical exam Z00.00 ; Mild intel lectual disabilities F70 and Encounter for immunization Z23 [facility] [address] [address] 11 Feb, 2018 [facility] [address] [address] Jan, [facility] [address] [address] Jan, Impulse control disorder F63.9 ; Mild in tellectual disabilities F70 and Depressive disorder F32.9 [facility] [address] [address] Nov, [facility] [address] [address] Nov, [facility] [address] [address] Nov, [facility] [address] [address] Nov, [facility] [address] [address] Nov, [facility] [address] [address] 05 Nov, 2017 Impulse control disorder F63.9 ; Depress douglas disorder F32.9 and Mild intellectual disabilities F70 [facility] [address] [address] October, [facility] [address] [address] October, Impulse control disorder F63.9 ; Depress douglas disorder F32.9 and Mild intellectual disabilities F70 [facility] [address] [address] Sep, [facility] [address] [address] Sep, Impulse control disorder F63.9 ; Depress douglas disorder F32.9 and Mild intellectual disabilities F70 [facility] [address] [address] Sep, Impulse control disorder F63.9 ; Depress douglas disorder F32.9 and Mild intellectual disabilities F70 [facility] [address] [address] Aug, [facility] [address] [address] Aug, Impulse control disorder F63.9 ; Depress douglas disorder F32.9 and Mild intellectual disabilities F70 [facility] [address] [id number] Aug, Dental examination Z01.20 [facility] [address] [address] Aug, [facility] [address] [address] Aug, Impulse control disorder F63.9 ; Depress douglas disorder F32.9 and Mild intellectual disabilities F70 [facility] [address] [address] Jul, Impulse control disorder F63.9 ; Depress douglas disorder F32.9 and Mild intellectual disabilities F70 [facility] [address] [id number] Jul, Dental examination Z01.20 [facility] [address] [address] Jul, [facility] [address] [address] Jun, Impulse control disorder F63.9 ; Depress douglas disorder F32.9 and Mild intellectual disabilities F70 [facility] [address] [address] 08 Jun, 2017 Impulse control disorder F63.9 ; Depress douglas disorder F32.9 and Mild intellectual disabilities F70 [facility] [address] [address] Jun, [facility] [address] [address] May, [facility] [address] [address] May, Impulse control disorder F63.9 ; Depress douglas disorder F32.9 and Mild intellectual disabilities F70 [place] [address] [address] Apr, Impulse control disorder F63.9 ; Depress douglas disorder F32.9 and Mild intellectual disabilities F70 [place] [address] [address] Apr, Seizures R56.9 [place] [address] [address] Apr, [place] [address] [address] Apr, Seizures R56.9 ; Tobacco abuse Z72.0 ; A lcohol abuse F10.10 and Encounter for immunization Z23 [place] [address] [address] Apr, Impulse control disorder F63.9 ; Depress douglas disorder F32.9 and Mild intellectual disabilities F70 [facility] [address] [address] Mar, Impulse control disorder F63.9 ; Depress douglas disorder F32.9 and Mild intellectual disabilities F70 [facility] [address] [address] Mar, [facility] [address] [address] Mar, Impulse control disorder F63.9 ; Depress douglas disorder F32.9 and Mild intellectual disabilities F70 [facility] [address] [address] Mar, [facility] [address] [address] Feb, Impulse control disorder F63.9 ; Depress douglas disorder F32.9 and Mild intellectual disabilities F70 [facility] [address] [address] Feb, [facility] [address] [address] Feb, Impulse control disorder F63.9 ; Depress douglas disorder F32.9 and Mild intellectual disabilities F70 [facility] [address] [address] Jan, Annual physical exam Z00.00 ; Right hand pain M79.641 ; Impulse control disorder F63.9 ; Mild intellectual disabilities F70 and Depressive disorder F32.9 [facility] [address] [address] Jan, Impulse control disorder F63.9 ; Depress douglas disorder F32.9 and Mild intellectual disabilities F70 [facility] [address] [address] Jan, [facility] [address] [address] Jan, Impulse control disorder F63.9 ; Depress douglas disorder F32.9 and Mild intellectual disabilities F70 [facility] [address] [address] Jan, Impulse control disorder F63.9 ; Depress douglas disorder F32.9 and Mild intellectual disabilities F70 [facility] [address] [address] Dec, [facility] [address] [address] Dec, Impulse control disorder F63.9 ; Depress douglas disorder F32.9 and Mild intellectual disabilities F70 [facility] [address] [address] Nov, Impulse control disorder F63.9 ; Depress douglas disorder F32.9 and Mild intellectual disabilities F70 [facility] [address] [address] Nov, [facility] [address] [address] Nov, [facility] [address] [address] Nov, [facility] [address] [address] October, Impulse control disorder F63.9 ; Depress douglas disorder F32.9 and Mild intellectual disabilities F70 [facility] [address] [address] October, [facility] [address] [address] October, Impulse control disorder F63.9 ; Depress douglas disorder F32.9 and Mild intellectual disabilities F70 [facility] [address] [address] Sep, [facility] [address] [address] Sep, Impulse control disorder F63.9 ; Depress douglas disorder F32.9 and Mild intellectual disabilities F70 [facility] [address] [address] Sep, Seasonal allergic rhinitis due to pollen J30.1 [facility] [address] [address] Sep, [facility] [address] [address] Sep, [facility] [address] [address] Sep, Impulse control disorder F63.9 ; Depress douglas disorder F32.9 and Mild intellectual disabilities F70 [facility] [address] [address] Aug, Impulse control disorder F63.9 ; Depress douglas disorder F32.9 and Mild intellectual disabilities F70 [facility] [address] [address] Aug, [facility] [address] [address] Aug, [facility] [address] [address] Jul, [facility] [address] [address] Jul, Impulse control disorder F63.9 ; Depress douglas disorder F32.9 and Mild intellectual disabilities F70 [facility] [address] [id number] Jul, Dental examination Z01.20 [facility] [address] [address] Jul, Impulse control disorder F63.9 ; Depress douglas disorder F32.9 and Mild intellectual disabilities F70 [facility] [address] [address] Jul, [facility] [address] [address] Jun, [facility] [address] [address] Jun, Impulse control disorder F63.9 ; Depress douglas disorder F32.9 and Mild intellectual disabilities F70 [facility] [address] [address] Jun, [facility] [address] [address] Jun, [facility] [address] [address] Jun, Impulse control disorder F63.9 ; Depress douglas disorder F32.9 and Mild intellectual disabilities F70 [facility] [address] [address] May, Impulse control disorder F63.9 ; Depress douglas disorder F32.9 and Mild intellectual disabilities F70 [facility] [address] [address] May, Annual physical exam Z00.00 ; Other fati sarah R53.83 ; Seizures R56.9 ; Mild intellectual disabilities F70 and Impulse control disorder F63.9 [facility] [address] [address] May, [facility] [address] [address] May, Impulse control disorder F63.9 ; Depress douglas disorder F32.9 and Mild intellectual disabilities F70 [facility] [address] [id number] 30 Apr, 2016 Encounter for dental examination Z01.20 [facility] [address] [address] Apr, Impulse control disorder F63.9 ; Depress douglas disorder F32.9 and Mild intellectual disabilities F70 [facility] [address] [address] Apr, [facility] [address] [address] Mar, Impulse control disorder F63.9 ; Depress dogulas disorder F32.9 and Mild intellectual disabilities F70 [facility] [address] [address] Mar, Impulse control disorder F63.9 ; Depress douglas disorder F32.9 and Mild intellectual disabilities F70 [facility] [address] [address] Mar, [facility] [address] [address] Mar, [facility] [address] [address] Feb, Impulse control disorder F63.9 ; Depress douglas disorder F32.9 and Mild intellectual disabilities F70 [facility] [address] [address] Feb, Impulse control disorder F63.9 ; Depress douglas disorder F32.9 and Mild intellectual disabilities F70 [facility] [address] [address] Feb, [facility] [address] [address] Jan, Annual physical exam Z00.00 ; Impulse co ntrol disorder F63.9 ; Mild intellectual disabilities F70 ; Depressive disorder F32.9 and Seizures R56.9 [facility] [address] [address] Jan, Impulse control disorder F63.9 ; Depress douglas disorder F32.9 and Mild intellectual disabilities F70 [facility] [address] [address] Jan, [facility] [address] [address] Jan, Impulse control disorder F63.9 ; Depress douglas disorder F32.9 and Mild intellectual disabilities F70 [facility] [address] [address] Jan, [facility] [address] [address] Jan, [facility] [address] [address] Dec, Impulse control disorder F63.9 ; Depress douglas disorder F32.9 and Mild intellectual disabilities F70 [facility] [address] [address] Dec, Impulse control disorder F63.9 ; Depress douglas disorder F32.9 and Mild intellectual disabilities F70 [facility] [address] [address] Dec, [facility] [address] [address] Dec, Depressive disorder F32.9 ; Impulse cont rol disorder F63.9 and Mild intellectual disabilities F70 [facility] [address] [address] Nov, [facility] [address] [address] Nov, Depressive disorder F32.9 ; Impulse cont rol disorder F63.9 and Mild intellectual disabilities F70 [facility] [address] [address] Nov, [facility] [address] [address] October, Depressive disorder F32.9 ; Impulse cont rol disorder F63.9 and Mild intellectual disabilities F70 [facility] [address] [address] October, [facility] [address] [address] October, [facility] [address] [address] October, Depressive disorder F32.9 ; Impulse cont rol disorder F63.9 and Mild intellectual disabilities F70 [facility] [address] [address] October, [facility] [address] [address] Sep, [facility] [address] [address] Sep, Depressive disorder F32.9 ; Impulse cont rol disorder F63.9 and Mild intellectual disabilities F70 [facility] [address] [address] Sep, Depressive disorder F32.9 ; Impulse cont rol disorder F63.9 and Mild intellectual disabilities F70 [facility] [address] [place] [id number] Sep, [facility] [address] [address] Aug, [facility] [address] [place] [id number] Aug, Depressive disorder F32.9 ; Impulse cont rol disorder F63.9 and Mild intellectual disabilities F70 [facility] [address] [address] Aug, Depressive disorder F32.9 ; Impulse cont rol disorder F63.9 and Mild intellectual disabilities F70 [facility] [address] [id number] Jul, Dental examination Z01.20 [facility] [address] [address] Jul, [facility] [address] [address] Jul, Depressive disorder F32.9 ; Impulse cont rol disorder F63.9 and Mild intellectual disabilities F70 [facility] [address] [address] 05 Jul, 2015 Depressive disorder F32.9 ; Impulse cont rol disorder F63.9 and Mild intellectual disabilities F70 [facility] [address] [address] Jul, Depression screening Z13.89 ; Drug juliae wm, 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 and Screening for STD sexually transmitted disease Z11.3 [facility] [address] [address] Jun, [facility] [address] [address] Jun, Depressive disorder F32.9 ; Impulse cont rol disorder F63.9 and Mild intellectual disabilities F70 [facility] [address] [address] Jun, Depressive disorder, not elsewhere class ified F32.9 ; Mild mental retardation F70 and Impulse control disorder F63.9 [facility] [address] [address] Jun, Depressive disorder, not elsewhere class ified F32.9 ; Impulse control disorder F63.9 and Mild intellectual disabilities F70 [facility] [address] [address] Jun, [facility] [address] [id number] Jun, Dental examination Z01.20 [facility] [address] [address] 17 May, 2015 Depressive disorder, not elsewhere class ified F32.9 ; Impulse control disorder F63.9 and Mild intellectual disabilities F70 [facility] [address] [address] May, [facility] [address] [address] May, [facility] [address] [address] May, Depressive disorder, not elsewhere class ified F32.9 ; Impulse control disorder F63.9 and Mild intellectual disabilities F70 [facility] [address] [address] May, Depressive disorder, not elsewhere class ified F32.9 ; Impulse control disorder F63.9 and Mild mental retardation F70 [facility] [address] [address] Apr, Depressive disorder, not elsewhere class ified F32.9 ; Impulse control disorder F63.9 and Mild intellectual disabilities F70 [facility] [address] [address] Apr, [facility] [address] [address] Mar, Depressive disorder, not elsewhere class ified F32.9 ; Impulse control disorder F63.9 and Mild intellectual disabilities F70 [facility] [address] [address] Mar, Depressive disorder, not elsewhere class ified F32.9 ; Impulse control disorder F63.9 and Mild intellectual disabilities F70 [place] [address] [address] Mar, [place] [address] [address] Mar, Encounter for immunization Z23 [place] [address] [address] Mar, Depressive disorder, not elsewhere class ified F32.9 ; Impulse control disorder F63.9 and Mild intellectual disabilities F70 [place] [address] [address] Feb, Depressive disorder, not elsewhere class ified 311 ; Impulse control disorder, unspecified 312.30 and Mild mental retardation 317 [place] [address] [address] Feb, [place] [address] [address] Feb, Depressive disorder, not elsewhere class ified 311 ; Impulse control disorder, unspecified 312.30 and Mild mental retardation [address] [place] [address] [address] Jan, Depressive disorder, not elsewhere class ified 311 ; Impulse control disorder, unspecified 312.30 and Mild mental retardation [address] [place] [address] [address] Jan, Depressive disorder, not elsewhere class ified 311 ; Impulse control disorder, unspecified 312.30 and Mild mental retardation [address] [place] [address] [address] Jan, [facility] [address] [place] [id number] [place] [address] Jan, Depressive disorder, not elsewhere class ified 311 ; Impulse control disorder, unspecified 312.30 and Mild mental retardation 317 [facility] [address] [id number] [place] [address] Dec, Depressive disorder, not elsewhere class ified 311 ; Impulse control disorder, unspecified 312.30 and Mild mental retardation 317 [facility] [address] [id number] [place] [address] Dec, [facility] [address] [id number] [place] [id number] Dec, Dental examination V72.2 [facility] [address] [id number] [place] [address] Dec, Heat rash 705.1 ; Seizures 780.39 and Hi gh risk medication use V58.69 [facility] [address] [place] [place] [id number] [place] [address] Dec, [facility] [address] [address] Dec, Depressive disorder, not elsewhere class ified 311 ; Impulse control disorder, unspecified 312.30 and Mild mental retardation 317 [facility] [address] [place] [id number] [place] [address] Nov, Depressive disorder, not elsewhere class ified 311 ; Impulse control disorder, unspecified 312.30 and Mild mental retardation 317 [facility] [address] [place] [id number] [place] [address] Nov, [facility] [address] [address] Nov, Nicotine addiction 305.1 [facility] [address] [place] [id number] [place] [address] Nov, [facility] [address] [address] Nov, High risk medication use V58.69 [facility] [address] [place] [id number] [place] [address] 10 Nov, 2014 High risk medication use V58.69 [facility] [address] [address] Nov, Depressive disorder, not elsewhere class ified 311 ; Impulse control disorder, unspecified 312.30 and Mild mental retardation 317 [facility] [address] [address] Nov, Depressive disorder, not elsewhere class ified 311 ; 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 and Impulse control disorder, unspecified 312.30 [facility] [address] [address] October, Depressive disorder, not elsewhere class ified 311 ; Impulse control disorder, unspecified 312.30 and Mild mental retardation 317 [facility] [address] [address] October, [facility] [address] [address] October, Depressive disorder, not elsewhere class ified 311 ; Impulse control disorder, unspecified 312.30 and Mild mental retardation 317 [facility] [address] [address] October, [facility] [address] [id number] [place] [id number] October, Dental examination V72.2 [facility] [id number] [place] [address] Sep, Depressive disorder, not elsewhere class ified 311 ; Impulse control disorder 312.30 and Mild mental retardation 317 [facility] [address] [address] Sep, [facility] [address] [address] Sep, [facility] [address] [address] Aug, [facility] [address] [id number] [place] [address] 26 Aug, 2014 [facility] [address] [id number] [place] [address] Aug, [facility] [address] [id number] [place] [address] Aug, 2014 [facility] [address] [id number] [place] [address] 16 Aug, 2014 [facility] [address] [id number] [place] [address] 16 Aug, 2014 [facility] [address] [id number] [place] [address] Aug, [facility] [address] [id number] [place] [address] Aug, 2014 [facility] [address] [id number] [place] [address] Jul, 2014 [facility] [address] [id number] [place] [address] Jul, 2014 [facility] [address] [id number] [place] [address] Jul, 2014 [facility] [address] [id number] [place] [address] Jul, 2014 [facility] [address] [id number] [place] [address] 16 Jul, 2014 [facility] [address] [id number] [place] [address] 16 Jul, 2014 [facility] [address] [id number] [place] [address] 16 Jul, 2014 [facility] [address] [id number] [place] [address] 16 Jul, 2014 [facility] [address] [id number] [place] [address] 11 Jul, 2014 [facility] [address] [id number] [place] [address] Jul, [facility] [address] [facility] [id number] [place] [address] Jul, [facility] [address] [id number] [place] [address] Jul, [facility] [address] [id number] [place] [address] Jul, [facility] [address] [id number] [place] [address] Jul, [facility] [address] [id number] [place] [address] Jun, [facility] [address] [id number] [place] [address] Jun, [facility] [address] [id number] [place] [address] Jun, [facility] [address] [id number] [place] [address] Jun, [facility] [address] [id number] [place] [address] Jun, [facility] [address] [id number] [place] [address] Jun, [facility] [address] [id number] [place] [address] Jun, [facility] [address] [id number] [place] [address] Jun, [facility] [address] [id number] [place] [address] Jun, [facility] [address] [id number] [place] [address] Jun, [facility] [address] [id number] [place] [address] Jun, [facility] [address] [id number] [place] [address] Jun, [facility] [address] [id number] [place] [address] 08 Jun, 2014 [facility] [address] [id number] [place] [address] Jun, [facility] [address] [id number] [place] [address] Jun, [facility] [address] [id number] [place] [address] Jun, [facility] [address] [id number] [place] [address] Jun, [facility] [address] [id number] [place] [address] Jun, [facility] [address] [id number] [place] [address] Jun, [facility] [address] [id number] [place] [address] Jun, [facility] [address] [id number] [place] [address] May, [facility] [address] [id number] [place] [address] May, [facility] [address] [id number] [place] [address] May, [facility] [address] [id number] [place] [address] May, [facility] [address] [id number] [place] [address] May, [facility] [address] [id number] [place] [address] Apr, [facility] [id number] [place] [address] Apr, [facility] [address] [id number] [place] [address] Apr, [facility] [address] [id number] [place] [address] Apr, [facility] [address] [facility] [id number] [place] [address] Apr, [facility] [address] [facility] [id number] [place] [address] Apr, [facility] [address] [id number] [place] [address] Apr, [facility] [address] [id number] [place] [address] Apr, [facility] [address] [facility] [id number] [place] [address] Mar, [facility] [address] [id number] [place] [address] Mar, [facility] [address] [id number] [place] [address] Mar, [facility] [address] [id number] [place] [address] Mar, [facility] [address] [id number] [place] [address] Mar, [facility] [address] [id number] [place] [address] Mar, [facility] [address] [id number] [place] [address] Mar, [facility] [address] [id number] [place] [address] Mar, [facility] [address] [facility] [id number] [place] [address] Mar, [facility] [address] [facility] [id number] [place] [address] Mar, [facility] [address] [id number] [place] [address] Mar, [facility] [address] [id number] [place] [address] Mar, [facility] [address] [id number] [place] [address] 15 Mar, 2014 [facility] [address] [id number] [place] [address] Mar, [facility] [address] [id number] [place] [address] Mar, [facility] [address] [id number] [place] [address] Mar, [facility] [address] [id number] [place] [address] Mar, [facility] [address] [id number] [place] [address] Mar, [facility] [address] [id number] [place] [address] Mar, [facility] [address] [id number] [place] [address] Mar, [facility] [address] [id number] [place] [address] 24 Feb, 2013 [facility] [address] [id number] [place] [address] 24 Feb, 2013 [facility] [address] [id number] [place] [address] Feb, 2013 [facility] [address] [id number] [place] [address] Feb, 2013 [facility] [address] [id number] [place] [address] Feb, 2013 [facility] [address] [id number] [place] [address] 11 Feb, 2013 [facility] [address] [id number] [place] [address] 05 Feb, 2013 [facility] [address] [id number] [place] [address] 05 Feb, 2013 [facility] [address] [id number] [place] [address] Jan, [facility] [address] [id number] [place] [address] Jan, [facility] [address] [facility] [id number] [place] [address] Jan, [facility] [address] [id number] [place] [address] Jan, [facility] [address] [id number] [place] [address] Dec, [facility] [address] [facility] [id number] [place] [address] Dec, [facility] [address] [facility] [id number] [place] [address] Dec, [facility] [address] [id number] [place] [address] Dec, [facility] [address] [id number] [place] [address] Dec, [facility] [address] [id number] [place] [address] Dec, [facility] [address] [id number] [place] [address] Dec, [facility] [address] [id number] [place] [address] Dec, [facility] [address] [id number] [place] [address] Dec, [facility] [address] [id number] [place] [address] Dec, [facility] [address] [facility] [id number] [place] [address] Nov, [facility] [address] [id number] [place] [address] Nov, [facility] [address] [id number] [place] [address] Nov, [facility] [address] [id number] [place] [address] Nov, [facility] [address] [facility] [id number] [place] [address] Nov, [facility] [address] [facility] [id number] [place] [address] Nov, [facility] [address] [facility] [id number] [place] [address] Nov, [facility] [address] [facility] [id number] [place] [address] Nov, [facility] [address] [facility] [id number] [place] [address] Nov, [facility] [address] [facility] [id number] [place] [address] Nov, [facility] [address] [id number] [place] [address] Nov, [facility] [address] [id number] [place] [address] Nov, [facility] [address] [facility] [id number] [place] [address] October, [facility] [address] [id number] [place] [address] October, [facility] [address] [facility] [id number] [place] [address] October, [facility] [address] [id number] [place] [address] October, [facility] [address] [facility] [id number] [place] [address] October, [facility] [address] [facility] [id number] [place] [address] October, [facility] [address] [facility] [id number] [place] [address] October, [facility] [address] [id number] [place] [address] October, [facility] [address] [id number] [place] [address] October, [facility] [address] [id number] [place] [address] October, [facility] [address] [id number] [place] [address] Sep, [facility] [address] [id number] [place] [address] Sep, [facility] [address] [id number] [place] [address] Sep, [facility] [address] [id number] [place] [address] Sep, [facility] [address] [id number] [place] [address] Sep, [facility] [address] [id number] [place] [address] Sep, [facility] [address] [id number] [place] [address] Sep, [facility] [address] [id number] [place] [address] Sep, [facility] [address] [id number] [place] [address] Aug, [facility] [address] [id number] [place] [address] Aug, [facility] [address] [id number] [place] [address] Aug, [facility] [address] [id number] [place] [address] Aug, [facility] [address] [id number] [place] [address] Aug, [facility] [address] [id number] [place] [address] Aug, [facility] [address] [id number] [place] [address] Aug, [facility] [address] [id number] [place] [address] Aug, [facility] [address] [id number] [place] [address] Jul, [facility] [address] [id number] [place] [address] Jul, [facility] [address] [id number] [place] [address] Jul, [facility] [address] [id number] [place] [address] Jul, [facility] [address] [id number] [place] [address] Jul, [facility] [address] [id number] [place] [address] Jul, [facility] [address] [id number] [place] [address] Jul, [facility] [address] [id number] [place] [address] Jul, [facility] [address] [id number] [place] [address] Jun, [facility] [address] [id number] [place] [address] Jun, [facility] [address] [id number] [place] [address] Jun, [facility] [address] [id number] [place] [address] Jun, [facility] [address] [id number] [place] [address] Jun, [facility] [address] [id number] [place] [address] Jun, [facility] [address] [id number] [place] [address] Jun, [facility] [address] [id number] [place] [address] Jun, [facility] [address] [id number] [place] [address] May, [facility] [address] [id number] [place] [address] May, [facility] [address] [id number] [place] [address] May, [facility] [address] [id number] [place] [address] May, [facility] [address] [id number] [place] [address] May, [facility] [address] [id number] [place] [address] May, [facility] [address] [id number] [place] [address] Apr, [facility] [address] [id number] [place] [address] Apr, [facility] [address] [id number] [place] [address] Mar, [facility] [address] [id number] [place] [address] Mar, [facility] [address] [id number] [place] [address] Mar, [facility] [address] [id number] [place] [address] Mar, [facility] [address] [id number] [place] [address] Mar, [facility] [address] [id number] [place] [address] Feb, [facility] [address] [id number] [place] [address] Jan, [facility] [address] [id number] [place] [address] Jan, [facility] [address] [id number] [place] [address] Jan, [facility] [address] [id number] [place] [address] Jan, [facility] [address] [id number] [place] [address] Jan, [facility] [address] [id number] [place] [address] Dec, [facility] [address] [id number] [place] [address] Dec, [facility] [address] [id number] [place] [address] Dec, [facility] [address] [id number] [place] [address] Dec, [facility] [address] [id number] [place] [address] Nov, [facility] [address] [id number] [place] [address] Nov, [facility] [address] [id number] [place] [address] Nov, [facility] [address] [id number] [place] [address] October, [facility] [address] [id number] [place] [address] October, [facility] [address] [id number] [place] [address] October, [facility] [address] [id number] [place] [address] Sep, [facility] [address] [id number] [place] [address] Sep, [facility] [address] [id number] [place] [address] Aug, [facility] [address] [id number] [place] [address] Aug, [facility] [address] [id number] [place] [address] Jul, [facility] [address] [id number] [place] [address] Jul, [facility] [address] [id number] [place] [address] Jul, [facility] [address] [id number] [place] [address] Jul, [facility] [address] [id number] [place] [address] Jul, [facility] [address] [id number] [place] [address] Jun, [facility] [address] [id number] [place] [address] May, [facility] [address] [id number] [place] [address] 31 May, 2012 [facility] [address] [id number] [place] [address] May, [facility] [address] [id number] [place] [address] 14 May, 2012 [facility] [address] [id number] [place] [address] May, [facility] [address] [id number] [place] [address] May, [facility] [address] [id number] [place] [address] May, [facility] [address] [id number] [place] [address] May, [facility] [address] [id number] [place] [address] Apr, [facility] [address] [id number] [place] [address] Apr, [facility] [address] [id number] [place] [address] Apr, [facility] [address] [id number] [place] [address] Apr, [facility] [address] [id number] [place] [address] Mar, [facility] [address] [id number] [place] [address] Mar, [facility] [address] [id number] [place] [address] Mar, [facility] [address] [id number] [place] [address] Feb, [facility] [address] [id number] [place] [address] Feb, [facility] [address] [id number] [place] [address] Jan, [facility] [address] [id number] [place] [address] Jan, [facility] [address] [id number] [place] [address] Jan, [facility] [address] [id number] [place] [address] Dec, [facility] [address] [id number] [place] [address] Dec, [facility] [address] [id number] [place] [address] Dec, [facility] [address] [id number] [place] [address] Dec, [facility] [id number] [place] [address] Nov, [facility] [address] [id number] [place] [address] Nov, [facility] [address] [id number] [place] [address] Nov, [facility] [address] [id number] [place] [address] October[facility] [address] [id number] [place] [address] October, [facility] [address] [id number] [place] [address] October, [facility] [address] [id number] [place] [address] Sep, [facility] [address] [id number] [place] [address] Sep, [facility] [address] [id number] [place] [address] Sep, [facility] [address] [id number] [place] [address] Aug, [facility] [id number] [place] [address] Aug, [facility] [address] [id number] [place] [address] Aug, [facility] [address] [id number] [place] [address] Jul[facility] [address] [id number] [place] [address] Jun, [facility] [address] [id number] [place] [address] Jun, [facility] [address] [id number] [place] [address] May, [facility] [address] [id number] [place] [address] May, [facility] [address] [id number] [place] [address] May, [facility] [address] [id number] [place] [address] May, [facility] [address] [id number] [place] [address] Apr, [facility] [id number] [place] [address] Apr, [facility] [id number] [place] [address] Apr, [facility] [id number] [place] [address] Apr, [facility] [id number] [place] [address] Apr, [facility] [id number] [place] [address] Mar, [facility] [address] [address] Mar, [facility] [id number] [place] [address] Jan, [facility] [address] [address] May, [facility] [id number] [place] [address] Apr, [facility] [address] [address] Mar, [facility] [id number] [place] [address] Jun, [facility] [id number] [place] [address] Apr, [facility] [id number] [place] [address] Apr, IMMUNIZATIONS No Known Immunizations SOCIAL HISTORY Never Assessed REASON FOR VISIT PLAN OF CARE VITAL SIGNS Height 76 in 2013-12-10 Weight 216 lbs 2013-12-10 Temperature 98.9 degrees Fahrenheit 2013-12-10 Heart Rate 80 bpm 2013-12-10 Respiratory Rate 24 2013-12-10 Blood pressure systolic 122 mmHg 2013-12-10 Blood pressure diastolic 84 mmHg 2013-12-10 MEDICATIONS Unknown Medications RESULTS No Results PROCEDURES No Known procedures INSTRUCTIONS MEDICATIONS ADMINISTERED No Known Medications MEDICAL (GENERAL) HISTORY Type Description Date Medical History seizures Surgical History No Surgical history information
--- OUTSIDE RECORDS SUMMARY | 2019-09-07 02:55 | XMS REPORT ---
Author Author Reymundo BERKOWITZ Organization [facility] Address [address] [place] [address] Care Team Providers Care Wad Impregnator Name Role Phone YANNICK BERKOWITZA Unavailable PROBLEMS Type Condition ICD9-CM Code [id number] Code Onset Dates Condition S tatus SNOMED Code Problem Alcohol abuse F10.10 Active 307015 05 Problem Relationship dysfunction Z63.9 Activ e [id number] Problem Impulse control disorder F63.9 Activ e 40377477 Problem Depressive disorder F32.9 Active 05352379 Problem Mild intellectual disabilities F70 Active 79155795 Problem Seasonal allergic rhinitis due to pollen J30.1 Active 86197526 ALLERGIES No Information ENCOUNTERS Encounter Location Date Diagnosis [place] [address] [address] May, [place] [address] [address] Apr, [place] [address] [address] Apr, Depressive disorder F32.9 ; Impulse cont rol disorder F63.9 and Mild intellectual disabilities F70 [place] [address] [address] Apr, [facility] [address] [address] Apr, [facility] [address] [address] Apr, [place] [address] [address] 11 Apr, 2019 Impulse control disorder F63.9 ; Depress douglas disorder F32.9 and Mild intellectual disabilities F70 [place] [address] [place] [address] Mar, [facility] [address] [place] [id number] [place] [address] Mar, [facility] [address] [address] Mar, Encounter for immunization Z23 [facility] [address] [address] Dec, [facility] [address] [address] Dec, Seasonal allergic rhinitis due to pollen J30.1 [facility] [address] [address] October, Depressive disorder F32.9 ; Impulse cont rol disorder F63.9 and Mild intellectual disabilities F70 [facility] [address] [address] Jun, Impulse control disorder F63.9 ; Mild in tellectual disabilities F70 ; Relationship dysfunction Z63.[address] [facility] [address] [address] Jun, [facility] [address] [address] May, [facility] [address] [address] May, [facility] [address] [address] May, Encounter for immunization Z23 [facility] [address] [address] Apr, [facility] [address] [address] Apr, [facility] [address] [address] Mar, [facility] [address] [address] Mar, [facility] [address] [place] [id number] [place] [address] 26 Feb, 2018 Annual physical exam Z00.00 [facility] [address] [address] 25 Feb, 2018 Annual physical exam Z00.00 ; Mild intel lectual disabilities F70 and Encounter for immunization Z23 [facility] [address] [address] 11 Feb, 2018 [facility] [address] [address] Jan, [facility] [address] [address] Jan, Impulse control disorder F63.9 ; Mild in tellectual disabilities F70 and Depressive disorder F32.9 [facility] [address] [address] Nov, [facility] [address] [address] Nov, [facility] [address] [address] Nov, [facility] [address] [address] Nov, [facility] [address] [address] Nov, [facility] [address] [address] 05 Nov, 2017 Impulse control disorder F63.9 ; Depress douglas disorder F32.9 and Mild intellectual disabilities F70 [facility] [address] [address] October, [facility] [address] [address] October, Impulse control disorder F63.9 ; Depress douglas disorder F32.9 and Mild intellectual disabilities F70 [facility] [address] [address] Sep, [facility] [address] [address] Sep, Impulse control disorder F63.9 ; Depress douglas disorder F32.9 and Mild intellectual disabilities F70 [facility] [address] [address] Sep, Impulse control disorder F63.9 ; Depress douglas disorder F32.9 and Mild intellectual disabilities F70 [facility] [address] [address] Aug, [facility] [address] [address] Aug, Impulse control disorder F63.9 ; Depress douglas disorder F32.9 and Mild intellectual disabilities F70 [facility] [address] [id number] Aug, Dental examination Z01.20 [facility] [address] [address] Aug, [facility] [address] [address] Aug, Impulse control disorder F63.9 ; Depress douglas disorder F32.9 and Mild intellectual disabilities F70 [facility] [address] [address] Jul, Impulse control disorder F63.9 ; Depress douglas disorder F32.9 and Mild intellectual disabilities F70 [facility] [address] [id number] Jul, Dental examination Z01.20 [facility] [address] [address] Jul, [facility] [address] [address] Jun, Impulse control disorder F63.9 ; Depress douglas disorder F32.9 and Mild intellectual disabilities F70 [facility] [address] [address] 08 Jun, 2017 Impulse control disorder F63.9 ; Depress douglas disorder F32.9 and Mild intellectual disabilities F70 [facility] [address] [address] Jun, [facility] [address] [address] May, [facility] [address] [address] May, Impulse control disorder F63.9 ; Depress dougals disorder F32.9 and Mild intellectual disabilities F70 [place] [address] [address] Apr, Impulse control disorder F63.9 ; Depress douglas disorder F32.9 and Mild intellectual disabilities F70 [place] [address] [address] Apr, Seizures R56.9 [place] [address] [address] Apr, [place] [address] [address] Apr, Seizures R56.9 ; Tobacco abuse Z72.0 ; A lcohol abuse F10.10 and Encounter for immunization Z23 [place] [address] [address] Apr, Impulse control disorder F63.9 ; Depress douglas disorder F32.9 and Mild intellectual disabilities F70 [facility] [address] [address] Mar, Impulse control disorder F63.9 ; Depress douglas disorder F32.9 and Mild intellectual disabilities F70 [facility] [address] [address] Mar, [facility] [address] [address] Mar, Impulse control disorder F63.9 ; Depress douglas disorder F32.9 and Mild intellectual disabilities F70 [facility] [address] [address] Mar, [facility] [address] [address] Feb, Impulse control disorder F63.9 ; Depress douglas disorder F32.9 and Mild intellectual disabilities F70 [facility] [address] [address] Feb, [facility] [address] [address] Feb, Impulse control disorder F63.9 ; Depress douglas disorder F32.9 and Mild intellectual disabilities F70 [facility] [address] [address] Jan, Annual physical exam Z00.00 ; Right hand pain M79.641 ; Impulse control disorder F63.9 ; Mild intellectual disabilities F70 and Dep[address] F32.9 [facility] [address] [address] Jan, Impulse control disorder F63.9 ; Depress douglas disorder F32.9 and Mild intellectual disabilities F70 [facility] [address] [address] Jan, [facility] [address] [address] Jan, Impulse control disorder F63.9 ; Depress douglas disorder F32.9 and Mild intellectual disabilities F70 [facility] [address] [address] Jan, Impulse control disorder F63.9 ; Depress douglas disorder F32.9 and Mild intellectual disabilities F70 [facility] [address] [address] Dec, [facility] [address] [address] Dec, Impulse control disorder F63.9 ; Depress douglas disorder F32.9 and Mild intellectual disabilities F70 [facility] [address] [address] Nov, Impulse control disorder F63.9 ; Depress douglas disorder F32.9 and Mild intellectual disabilities F70 [facility] [address] [address] Nov, [facility] [address] [address] Nov, [facility] [address] [address] Nov, [facility] [address] [address] October, Impulse control disorder F63.9 ; Depress douglas disorder F32.9 and Mild intellectual disabilities F70 [facility] [address] [address] October, [facility] [address] [address] October, Impulse control disorder F63.9 ; Depress douglas disorder F32.9 and Mild intellectual disabilities F70 [facility] [address] [address] Sep, [facility] [address] [address] Sep, Impulse control disorder F63.9 ; Depress douglas disorder F32.9 and Mild intellectual disabilities F70 [facility] [address] [address] Sep, Seasonal allergic rhinitis due to pollen J30.1 [facility] [address] [address] Sep, [facility] [address] [address] Sep, [facility] [address] [address] Sep, Impulse control disorder F63.9 ; Depress douglas disorder F32.9 and Mild intellectual disabilities F70 [facility] [address] [address] Aug, Impulse control disorder F63.9 ; Depress douglas disorder F32.9 and Mild intellectual disabilities F70 [facility] [address] [address] Aug, [facility] [address] [address] Aug, [facility] [address] [address] Jul, [facility] [address] [address] Jul, Impulse control disorder F63.9 ; Depress douglas disorder F32.9 and Mild intellectual disabilities F70 [facility] [address] [id number] Jul, Dental examination Z01.20 [facility] [address] [address] Jul, Impulse control disorder F63.9 ; Depress douglas disorder F32.9 and Mild intellectual disabilities F70 [facility] [address] [address] Jul, [facility] [address] [address] Jun, [facility] [address] [address] Jun, Impulse control disorder F63.9 ; Depress douglas disorder F32.9 and Mild intellectual disabilities F70 [facility] [address] [address] Jun, [facility] [address] [address] Jun, [facility] [address] [address] Jun, Impulse control disorder F63.9 ; Depress douglas disorder F32.9 and Mild intellectual disabilities F70 [facility] [address] [address] May, Impulse control disorder F63.9 ; Depress douglas disorder F32.9 and Mild intellectual disabilities F70 [facility] [address] [address] May, Annual physical exam Z00.00 ; Other fati sarah R53.83 ; Seizures R56.9 ; Mild intellectual disabilities F70 and Impulse control disorder F63.9 [facility] [address] [address] May, [facility] [address] [address] May, Impulse control disorder F63.9 ; Depress douglas disorder F32.9 and Mild intellectual disabilities F70 [facility] [address] [id number] 30 Apr, 2016 Encounter for dental examination Z01.20 [facility] [address] [address] Apr, Impulse control disorder F63.9 ; Depress douglas disorder F32.9 and Mild intellectual disabilities F70 [facility] [address] [address] Apr, [facility] [address] [address] Mar, Impulse control disorder F63.9 ; Depress douglas disorder F32.9 and Mild intellectual disabilities F70 [facility] [address] [address] Mar, Impulse control disorder F63.9 ; Depress douglas disorder F32.9 and Mild intellectual disabilities F70 [facility] [address] [address] Mar, [facility] [address] [address] Mar, [facility] [address] [address] Feb, Impulse control disorder F63.9 ; Depress douglas disorder F32.9 and Mild intellectual disabilities F70 [facility] [address] [address] Feb, Impulse control disorder F63.9 ; Depress douglas disorder F32.9 and Mild intellectual disabilities F70 [facility] [address] [address] Feb, [facility] [address] [address] Jan, Annual physical exam Z00.00 ; Impulse co ntrol disorder F63.9 ; Mild intellectual disabilities F70 ; Depressive disorder F32.[address] [facility] [address] [address] Jan, Impulse control disorder F63.9 ; Depress douglas disorder F32.9 and Mild intellectual disabilities F70 [facility] [address] [address] Jan, [facility] [address] [address] Jan, Impulse control disorder F63.9 ; Depress douglas disorder F32.9 and Mild intellectual disabilities F70 [facility] [address] [address] Jan, [facility] [address] [address] Jan, [facility] [address] [address] Dec, Impulse control disorder F63.9 ; Depress douglas disorder F32.9 and Mild intellectual disabilities F70 [facility] [address] [address] Dec, Impulse control disorder F63.9 ; Depress douglas disorder F32.9 and Mild intellectual disabilities F70 [facility] [address] [address] Dec, [facility] [address] [address] Dec, Depressive disorder F32.9 ; Impulse cont rol disorder F63.9 and Mild intellectual disabilities F70 [facility] [address] [address] Nov, [facility] [address] [address] Nov, Depressive disorder F32.9 ; Impulse cont rol disorder F63.9 and Mild intellectual disabilities F70 [facility] [address] [address] Nov, [facility] [address] [address] October, Depressive disorder F32.9 ; Impulse cont rol disorder F63.9 and Mild intellectual disabilities F70 [facility] [address] [address] October, [facility] [address] [address] October, [facility] [address] [address] October, Depressive disorder F32.9 ; Impulse cont rol disorder F63.9 and Mild intellectual disabilities F70 [facility] [address] [address] October, [facility] [address] [address] Sep, [facility] [address] [address] Sep, Depressive disorder F32.9 ; Impulse cont rol disorder F63.9 and Mild intellectual disabilities F70 [facility] [address] [address] Sep, Depressive disorder F32.9 ; Impulse cont rol disorder F63.9 and Mild intellectual disabilities F70 [facility] [address] [place] [id number] Sep, [facility] [address] [address] Aug, [facility] [address] [place] [id number] Aug, Depressive disorder F32.9 ; Impulse cont rol disorder F63.9 and Mild intellectual disabilities F70 [facility] [address] [address] Aug, Depressive disorder F32.9 ; Impulse cont rol disorder F63.9 and Mild intellectual disabilities F70 [facility] [address] [id number] Jul, Dental examination Z01.20 [facility] [address] [address] Jul, [facility] [address] [address] Jul, Depressive disorder F32.9 ; Impulse cont rol disorder F63.9 and Mild intellectual disabilities F70 [facility] [address] [address] 05 Jul, 2015 Depressive disorder F32.9 ; Impulse cont rol disorder F63.9 and Mild intellectual disabilities F70 [facility] [address] [address] Jul, Depression screening Z13.89 ; Drug juliae wm, 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 and Screening for STD sexually transmitted disease Z11.3 [facility] [address] [address] Jun, [facility] [address] [address] Jun, Depressive disorder F32.9 ; Impulse cont rol disorder F63.9 and Mild intellectual disabilities F70 [facility] [address] [address] Jun, Depressive disorder, not elsewhere class ified F32.9 ; Mild mental retardation F70 and Impulse control disorder F63.9 [facility] [address] [address] Jun, Depressive disorder, not elsewhere class ified F32.9 ; Impulse control disorder F63.9 and Mild intellectual disabilities F70 [facility] [address] [address] Jun, [facility] [address] [id number] Jun, Dental examination Z01.20 [facility] [address] [address] 17 May, 2015 Depressive disorder, not elsewhere class ified F32.9 ; Impulse control disorder F63.9 and Mild intellectual disabilities F70 [facility] [address] [address] May, [facility] [address] [address] May, [facility] [address] [address] May, Depressive disorder, not elsewhere class ified F32.9 ; Impulse control disorder F63.9 and Mild intellectual disabilities F70 [facility] [address] [address] May, Depressive disorder, not elsewhere class ified F32.9 ; Impulse control disorder F63.9 and Mild mental retardation F70 [facility] [address] [address] Apr, Depressive disorder, not elsewhere class ified F32.9 ; Impulse control disorder F63.9 and Mild intellectual disabilities F70 [facility] [address] [address] Apr, [facility] [address] [address] Mar, Depressive disorder, not elsewhere class ified F32.9 ; Impulse control disorder F63.9 and Mild intellectual disabilities F70 [facility] [address] [address] Mar, Depressive disorder, not elsewhere class ified F32.9 ; Impulse control disorder F63.9 and Mild intellectual disabilities F70 [place] [address] [address] Mar, [place] [address] [address] Mar, Encounter for immunization Z23 [place] [address] [address] Mar, Depressive disorder, not elsewhere class ified F32.9 ; Impulse control disorder F63.9 and Mild intellectual disabilities F70 [place] [address] [address] Feb, Depressive disorder, not elsewhere class ified 311 ; Impulse control disorder, unspecified 312.30 and Mild mental retardation 317 [place] [address] [address] Feb, [place] [address] [address] Feb, Depressive disorder, not elsewhere class ified 311 ; Impulse control disorder, unspecified 312.30 and Mild mental retardation 317 [place] [address] [address] Jan, Depressive disorder, not elsewhere class ified 311 ; Impulse control disorder, unspecified 312.30 and Mild mental retardation 317 [place] [address] [address] Jan, Depressive disorder, not elsewhere class ified 311 ; Impulse control disorder, unspecified 312.30 and Mild mental retardation 317 [place] [address] [address] Jan, [facility] [address] [place] [id number] [place] [address] Jan, Depressive disorder, not elsewhere class ified 311 ; Impulse control disorder, unspecified 312.30 and Mild mental retardation 317 [facility] [address] [place] [id number] [place] [address] Dec, Depressive disorder, not elsewhere class ified 311 ; Impulse control disorder, unspecified 312.30 and Mild mental retardation 317 [facility] [address] [place] [id number] [place] [address] Dec, [facility] [address] [facility] [place] [id number] Dec, Dental examination V72.2 [facility] [address] [place] [id number] [place] [address] Dec, Heat rash 705.1 ; Seizures 780.39 and Hi gh risk medication use V58.69 [facility] [address] [place] [id number] [place] [address] Dec, [facility] [address] [address] Dec, Depressive disorder, not elsewhere class ified 311 ; Impulse control disorder, unspecified 312.30 and Mild mental retardation 317 [facility] [address] [place] [id number] [place] [address] Nov, Depressive disorder, not elsewhere class ified 311 ; Impulse control disorder, unspecified 312.30 and Mild mental retardation 317 [facility] [address] [place] [id number] [place] [address] Nov, [facility] [address] [address] Nov, Nicotine addiction 305.1 [facility] [address] [place] [id number] [place] [address] Nov, [facility] [address] [address] Nov, High risk medication use V58.69 [facility] [address] [place] [id number] [place] [address] 10 Nov, 2014 High risk medication use V58.69 [facility] [address] [address] Nov, Depressive disorder, not elsewhere class ified 311 ; Impulse control disorder, unspecified 312.30 and Mild mental retardation 317 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 [address] [address] October, Depressive disorder, not elsewhere class ified 311 ; Impulse control disorder, unspecified 312.30 and Mild mental retardation 317 [facility] [address] [address] October, [facility] [address] [address] October, Depressive disorder, not elsewhere class ified 311 ; Impulse control disorder, unspecified 312.30 and Mild mental retardation 317 [facility] [address] [address] October, [facility] [address] [id number] [place], [place] [id number] October, Dental examination V72.2 [facility] [id number] [place] [address] Sep, Depressive disorder, not elsewhere class ified 311 ; Impulse control disorder 312.30 and Mild mental retardation 317 [facility] [address] [address] Sep, [facility] [address] [address] Sep, [facility] [address] [address] Aug, [facility] [address] [id number] [place] [address] 26 Aug, 2014 [facility] [address] [id number] [place] [address] Aug, [facility] [address] [id number] [place] [address] Aug, 2014 [facility] [address] [id number] [place] [address] 16 Aug, 2014 [facility] [address] [id number] [place] [address] 16 Aug, 2014 [facility] [address] [id number] [place] [address] Aug, [facility] [address] [id number] [place] [address] Aug, 2014 [facility] [address] [id number] [place] [address] Jul, 2014 [facility] [address] [id number] [place] [address] Jul, 2014 [facility] [address] [id number] [place] [address] Jul, 2014 [facility] [address] [id number] [place] [address] Jul, 2014 [facility] [address] [id number] [place] [address] 16 Jul, 2014 [facility] [address] [id number] [place] [address] 16 Jul, 2014 [facility] [address] [id number] [place] [address] 16 Jul, 2014 [facility] [address] [id number] [place] [address] 16 Jul, 2014 [facility] [address] [id number] [place] [address] 11 Jul, 2014 [facility] [address] [id number] [place] [address] Jul, [facility] [address] [facility] [id number] [place] [address] Jul, [facility] [address] [id number] [place] [address] Jul, [facility] [address] [id number] [place] [address] Jul, [facility] [address] [id number] [place] [address] Jul, [facility] [address] [id number] [place] [address] Jun, [facility] [address] [id number] [place] [address] Jun, [facility] [address] [id number] [place] [address] Jun, [facility] [address] [id number] [place] [address] Jun, [facility] [address] [id number] [place] [address] Jun, [facility] [address] [id number] [place] [address] Jun, [facility] [address] [id number] [place] [address] Jun, [facility] [address] [id number] [place] [address] Jun, [facility] [address] [id number] [place] [address] Jun, [facility] [address] [id number] [place] [address] Jun, [facility] [address] [id number] [place] [address] Jun, [facility] [address] [id number] [place] [address] Jun, [facility] [address] [id number] [place] [address] 08 Jun, 2014 [facility] [address] [id number] [place] [address] Jun, [facility] [address] [id number] [place] [address] Jun, [facility] [address] [id number] [place] [address] Jun, [facility] [address] [id number] [place] [address] Jun, [facility] [address] [id number] [place] [address] Jun, [facility] [address] [id number] [place] [address] Jun, [facility] [address] [id number] [place] [address] Jun, [facility] [address] [id number] [place] [address] May, [facility] [address] [id number] [place] [address] May, [facility] [address] [id number] [place] [address] May, [facility] [address] [id number] [place] [address] May, [facility] [address] [id number] [place] [address] May, [facility] [address] [id number] [place] [address] Apr, [facility] [id number] [place] [address] Apr, [facility] [address] [id number] [place] [address] Apr, [facility] [address] [id number] [place] [address] Apr, [facility] [address] [facility] [id number] [place] [address] Apr, [facility] [address] [facility] [id number] [place] [address] Apr, [facility] [address] [id number] [place] [address] Apr, [facility] [address] [id number] [place] [address] Apr, [facility] [address] [facility] [id number] [place] [address] Mar, [facility] [address] [id number] [place] [address] Mar, [facility] [address] [id number] [place] [address] Mar, [facility] [address] [id number] [place] [address] Mar, [facility] [address] [id number] [place] [address] Mar, [facility] [address] [id number] [place] [address] Mar, [facility] [address] [id number] [place] [address] Mar, [facility] [address] [id number] [place] [address] Mar, [facility] [address] [facility] [id number] [place] [address] Mar, [facility] [address] [facility] [id number] [place] [address] Mar, [facility] [address] [id number] [place] [address] Mar, [facility] [address] [id number] [place] [address] Mar, [facility] [address] [id number] [place] [address] 15 Mar, 2014 [facility] [address] [id number] [place] [address] Mar, [facility] [address] [id number] [place] [address] Mar, [facility] [address] [id number] [place] [address] Mar, [facility] [address] [id number] [place] [address] Mar, [facility] [address] [id number] [place] [address] Mar, [facility] [address] [id number] [place] [address] Mar, [facility] [address] [id number] [place] [address] Mar, [facility] [address] [id number] [place] [address] 24 Feb, 2013 [facility] [address] [id number] [place] [address] 24 Feb, 2013 [facility] [address] [id number] [place] [address] Feb, 2013 [facility] [address] [id number] [place] [address] Feb, 2013 [facility] [address] [id number] [place] [address] Feb, 2013 [facility] [address] [id number] [place] [address] 11 Feb, 2013 [facility] [address] [id number] [place] [address] 05 Feb, 2013 [facility] [address] [id number] [place] [address] 05 Feb, 2013 [facility] [address] [id number] [place] [address] Jan, [facility] [address] [id number] [place] [address] Jan, [facility] [address] [facility] [id number] [place] [address] Jan, [facility] [address] [id number] [place] [address] Jan, [facility] [address] [id number] [place] [address] Dec, [facility] [address] [facility] [id number] [place] [address] Dec, [facility] [address] [facility] [id number] [place] [address] Dec, [facility] [address] [id number] [place] [address] Dec, [facility] [address] [id number] [place] [address] Dec, [facility] [address] [id number] [place] [address] Dec, [facility] [address] [id number] [place] [address] Dec, [facility] [address] [id number] [place] [address] Dec, [facility] [address] [id number] [place] [address] Dec, [facility] [address] [id number] [place] [address] Dec, [facility] [address] [facility] [id number] [place] [address] Nov, [facility] [address] [id number] [place] [address] Nov, [facility] [address] [id number] [place] [address] Nov, [facility] [address] [id number] [place] [address] Nov, [facility] [address] [facility] [id number] [facility] [place] [address] Nov, [facility] [address] [facility] [id number] [facility] [place] [address] Nov, [facility] [address] [facility] [id number] [place] [address] Nov, [facility] [address] [facility] [id number] [facility] [place] [address] Nov, [facility] [address] [facility] [id number] [facility] [place] [address] Nov, [facility] [address] [facility] [id number] [place] [address] Nov, [facility] [address] [id number] [place] [address] Nov, [facility] [address] [id number] [place] [address] Nov, [facility] [address] [facility] [id number] [place] [address] October, [facility] [address] [id number] [place] [address] October, [facility] [address] [facility] [id number] [place] [address] October, [facility] [address] [id number] [place] [address] October, [facility] [address] [facility] [id number] [place] [address] October, [facility] [address] [facility] [id number] [place] [address] October, [facility] [address] [facility] [id number] [place] [address] October, [facility] [address] [id number] [place] [address] October, [facility] [address] [id number] [facility] [place] [address] October, [facility] [address] [id number] [place] [address] October, [facility] [address] [id number] [place] [address] Sep, [facility] [address] [id number] [place] [address] Sep, [facility] [address] [id number] [place] [address] Sep, [facility] [address] [id number] [place] [address] Sep, [facility] [address] [id number] [place] [address] Sep, [facility] [address] [id number] [place] [address] Sep, [facility] [address] [id number] [place] [address] Sep, [facility] [address] [id number] [place] [address] Sep, [facility] [address] [id number] [place] [address] Aug, [facility] [address] [id number] [place] [address] Aug, [facility] [address] [id number] [place] [address] Aug, [facility] [address] [id number] [place] [address] Aug, [facility] [address] [id number] [place] [address] Aug, [facility] [address] [id number] [place] [address] Aug, [facility] [address] [id number] [place] [address] Aug, [facility] [address] [id number] [place] [address] Aug, [facility] [address] [id number] [place] [address] Jul, [facility] [address] [id number] [place] [address] Jul, [facility] [address] [id number] [place] [address] Jul, [facility] [address] [id number] [place] [address] Jul, [facility] [address] [id number] [place] [address] Jul, [facility] [address] [id number] [place] [address] Jul, [facility] [address] [id number] [place] [address] Jul, [facility] [address] [id number] [place] [address] Jul, [facility] [address] [id number] [place] [address] Jun, [facility] [address] [id number] [place] [address] Jun, [facility] [address] [id number] [place] [address] Jun, [facility] [address] [id number] [place] [address] Jun, [facility] [address] [id number] [place] [address] Jun, [facility] [address] [id number] [place] [address] Jun, [facility] [address] [id number] [place] [address] Jun, [facility] [address] [id number] [place] [address] Jun, [facility] [address] [id number] [place] [address] May, [facility] [address] [id number] [place] [address] May, [facility] [address] [id number] [place] [address] May, [facility] [address] [id number] [place] [address] May, [facility] [address] [id number] [place] [address] May, [facility] [address] [id number] [place] [address] May, [facility] [address] [id number] [place] [address] Apr, [facility] [address] [id number] [place] [address] Apr, [facility] [address] [id number] [place] [address] Mar, [facility] [address] [id number] [place] [address] Mar, [facility] [address] [id number] [place] [address] Mar, [facility] [address] [id number] [place] [address] Mar, [facility] [address] [id number] [place] [address] Mar, [facility] [address] [id number] [place] [address] Feb, [facility] [address] [id number] [place] [address] Jan, [facility] [address] [id number] [place] [address] Jan, [facility] [address] [id number] [place] [address] Jan, [facility] [address] [id number] [place] [address] Jan, [facility] [address] [id number] [place] [address] Jan, [facility] [address] [id number] [place] [address] Dec, [facility] [address] [id number] [place] [address] Dec, [facility] [address] [id number] [place] [address] Dec, [facility] [address] [id number] [place] [address] Dec, [facility] [address] [id number] [place] [address] Nov, [facility] [address] [id number] [place] [address] Nov, [facility] [address] [id number] [place] [address] Nov, [facility] [address] [id number] [place] [address] October, [facility] [address] [id number] [place] [address] October, [facility] [address] [id number] [place] [address] October, [facility] [address] [id number] [place] [address] Sep, [facility] [address] [id number] [place] [address] Sep, [facility] [address] [id number] [place] [address] Aug, [facility] [address] [id number] [place] [address] Aug, [facility] [address] [id number] [place] [address] Jul, [facility] [address] [id number] [place] [address] Jul, [facility] [address] [id number] [place] [address] Jul, [facility] [address] [id number] [place] [address] Jul, [facility] [address] [id number] [place] [address] Jul, [facility] [address] [id number] [place] [address] Jun, [facility] [address] [id number] [place] [address] May, [facility] [address] [id number] [place] [address] 31 May, 2012 [facility] [address] [id number] [place] [address] May, [facility] [address] [id number] [place] [address] 14 May, 2012 [facility] [address] [id number] [place] [address] May, [facility] [address] [id number] [place] [address] May, [facility] [address] [id number] [place] [address] May, [facility] [address] [id number] [place] [address] May, [facility] [address] [id number] [place] [address] Apr, [facility] [address] [id number] [place] [address] Apr, [facility] [address] [id number] [place] [address] Apr, [facility] [address] [id number] [place] [address] Apr, [facility] [address] [id number] [place] [address] Mar, [facility] [address] [id number] [place] [address] Mar, [facility] [address] [id number] [place] [address] Mar, [facility] [address] [id number] [place] [address] Feb, [facility] [address] [id number] [place] [address] Feb, [facility] [address] [id number] [place] [address] Jan, [facility] [address] [id number] [place] [address] Jan, [facility] [address] [id number] [place] [address] Jan, [facility] [address] [id number] [place] [address] Dec, [facility] [address] [id number] [place] [address] Dec, [facility] [address] [id number] [place] [address] Dec, [facility] [address] [id number] [place] [address] Dec, [facility] [id number] [place] [address] Nov, [facility] [address] [id number] [place] [address] Nov, [facility] [address] [id number] [place] [address] Nov, [facility] [address] [id number] [place] [address] October, [facility] [address] [id number] [place] [address] October, [facility] [address] [id number] [place] [address] October, [facility] [address] [id number] [place] [address] Sep, [facility] [address] [id number] [place] [address] Sep, [facility] [address] [id number] [place] [address] Sep, [facility] [address] [id number] [place] [address] Aug, [facility] [id number] [place] [address] Aug, [facility] [address] [id number] [place] [address] Aug, [facility] [address] [id number] [place] [address] Jul, [facility] [address] [id number] [place] [address] Jun, [facility] [address] [id number] [place] [address] Jun, [facility] [address] [id number] [place] [address] May, [facility] [address] [id number] [place] [address] May, [facility] [address] [id number] [place] [address] May, [facility] [address] [id number] [place] [address] May, [facility] [address] [id number] [place] [address] Apr, [facility] [address] [id number] [place] [address] Apr, [facility] [id number] [place] [address] Apr, [facility] [id number] [place] [address] Apr, [facility] [id number] [place] [address] Apr, [facility] [address] [id number] [place] [address] Mar, [facility] [id number] [place] [address] Mar, [facility] [id number] [place] [address] Jan, [facility] [id number] [place] [address] May, [facility] [id number] [place] [address] Apr, [facility] [id number] [place] [address] Mar, [facility] [id number] [place] [address] Jun, [facility] [id number] [place] [address] Apr, [facility] [id number] [place] [address] Apr, IMMUNIZATIONS No Known Immunizations SOCIAL HISTORY Never Assessed REASON FOR VISIT PLAN OF CARE VITAL SIGNS MEDICATIONS Unknown Medications RESULTS No Results PROCEDURES No Known procedures INSTRUCTIONS MEDICATIONS ADMINISTERED No Known Medications MEDICAL (GENERAL) HISTORY Type Description Date Medical History seizures Surgical History No Surgical history information
--- OUTSIDE RECORDS SUMMARY | 2019-09-07 02:55 | XMS REPORT ---
Author Author Reymundo BERKOWITZ Organization 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 Activ e [id number] Problem Impulse control disorder F63.9 Activ e 06384862 Problem Depressive disorder F32.9 Active 92287048 Problem Mild intellectual disabilities F70 Active [id number] Problem Seasonal allergic rhinitis due to pollen J30.1 Active [id number] ALLERGIES No Information ENCOUNTERS Encounter Location Date Diagnosis [place] [address] [address] May, [place] [address] [address] Apr, [place] [address] [address] Apr, Depressive disorder F32.9 ; Impulse cont rol disorder F63.9 and Mild intellectual disabilities F70 [place] [address] [address] Apr, [facility] [address] [address] Apr, [facility] [address] [address] Apr, [place] [address] [address] Apr, Impulse control disorder F63.9 ; Depress douglas disorder F32.9 and Mild intellectual disabilities F70 [place] [address] [place] [address] Mar, [facility] [address] [place] [id number] [place] [address] Mar, [facility] [address] [address] Mar, Encounter for immunization Z23 [facility] [address] [address] Dec, [facility] [address] [address] Dec, Seasonal allergic rhinitis due to pollen J30.1 [facility] [address] [address] October, Depressive disorder F32.9 ; Impulse cont rol disorder F63.9 and Mild intellectual disabilities F70 [facility] [address] [address] Jun, Impulse control disorder F63.9 ; Mild in tellectual disabilities F70 ; Relationship dysfunction Z63.9 [address]9 [facility] [address] [address] Jun, [facility] [address] [address] May, [facility] [address] [address] May, [facility] [address] [address] May, Encounter for immunization Z23 [facility] [address] [address] Apr, [facility] [address] [address] Apr, [facility] [address] [address] Mar, [facility] [address] [address] Mar, [facility] [address] [place] [id number] [place] [address] 26 Feb, 2018 Annual physical exam Z00.00 [facility] [address] [address] 25 Feb, 2018 Annual physical exam Z00.00 ; Mild intel lectual disabilities F70 and Encounter for immunization Z23 [facility] [address] [address] 11 Feb, 2018 [facility] [address] [address] Jan, [facility] [address] [address] Jan, Impulse control disorder F63.9 ; Mild in tellectual disabilities F70 and Depressive disorder F32.9 [facility] [address] [address] Nov, [facility] [address] [address] Nov, [facility] [address] [address] Nov, [facility] [address] [address] Nov, [facility] [address] [address] Nov, [facility] [address] [address] 05 Nov, 2017 Impulse control disorder F63.9 ; Depress douglas disorder F32.9 and Mild intellectual disabilities F70 [facility] [address] [address] October, [facility] [address] [address] October, Impulse control disorder F63.9 ; Depress douglas disorder F32.9 and Mild intellectual disabilities F70 [facility] [address] [address] Sep, [facility] [address] [address] Sep, Impulse control disorder F63.9 ; Depress douglas disorder F32.9 and Mild intellectual disabilities F70 [facility] [address] [address] Sep, Impulse control disorder F63.9 ; Depress douglas disorder F32.9 and Mild intellectual disabilities F70 [facility] [address] [address] Aug, [facility] [address] [address] Aug, Impulse control disorder F63.9 ; Depress douglas disorder F32.9 and Mild intellectual disabilities F70 [facility] [address] [id number] Aug, Dental examination Z01.20 [facility] [address] [address] Aug, [facility] [address] [address] Aug, Impulse control disorder F63.9 ; Depress douglas disorder F32.9 and Mild intellectual disabilities F70 [facility] [address] [address] Jul, Impulse control disorder F63.9 ; Depress douglas disorder F32.9 and Mild intellectual disabilities F70 [facility] [address] [id number] Jul, Dental examination Z01.20 [facility] [address] [address] Jul, [facility] [address] [address] Jun, Impulse control disorder F63.9 ; Depress douglas disorder F32.9 and Mild intellectual disabilities F70 [facility] [address] [address] 08 Jun, 2017 Impulse control disorder F63.9 ; Depress douglas disorder F32.9 and Mild intellectual disabilities F70 [facility] [address] [address] Jun, [facility] [address] [address] May, [facility] [address] [address] May, Impulse control disorder F63.9 ; Depress douglas disorder F32.9 and Mild intellectual disabilities F70 [place] [address] [address] Apr, Impulse control disorder F63.9 ; Depress douglas disorder F32.9 and Mild intellectual disabilities F70 [place] [address] [address] Apr, Seizures R56.9 [place] [address] [address] Apr, [place] [address] [address] Apr, Seizures R56.9 ; Tobacco abuse Z72.0 ; A lcohol abuse F10.10 and Encounter for immunization Z23 [place] [address] [address] Apr, Impulse control disorder F63.9 ; Depress douglas disorder F32.9 and Mild intellectual disabilities F70 [facility] [address] [address] Mar, Impulse control disorder F63.9 ; Depress douglas disorder F32.9 and Mild intellectual disabilities F70 [facility] [address] [address] Mar, [facility] [address] [address] Mar, Impulse control disorder F63.9 ; Depress douglas disorder F32.9 and Mild intellectual disabilities F70 [facility] [address] [address] Mar, [facility] [address] [address] Feb, Impulse control disorder F63.9 ; Depress douglas disorder F32.9 and Mild intellectual disabilities F70 [facility] [address] [address] Feb, [facility] [address] [address] Feb, Impulse control disorder F63.9 ; Depress douglas disorder F32.9 and Mild intellectual disabilities F70 [facility] [address] [address] Jan, Annual physical exam Z00.00 ; Right hand pain M79.641 ; Impulse control disorder F63.9 ; Mild intellectual disabilities F70 and Depressive disorder F32.9 [facility] [address] [address] Jan, Impulse control disorder F63.9 ; Depress douglas disorder F32.9 and Mild intellectual disabilities F70 [facility] [address] [address] Jan, [facility] [address] [address] Jan, Impulse control disorder F63.9 ; Depress douglas disorder F32.9 and Mild intellectual disabilities F70 [facility] [address] [address] Jan, Impulse control disorder F63.9 ; Depress douglas disorder F32.9 and Mild intellectual disabilities F70 [facility] [address] [address] Dec, [facility] [address] [address] Dec, Impulse control disorder F63.9 ; Depress douglas disorder F32.9 and Mild intellectual disabilities F70 [facility] [address] [address] Nov, Impulse control disorder F63.9 ; Depress douglas disorder F32.9 and Mild intellectual disabilities F70 [facility] [address] [address] Nov, [facility] [address] [address] Nov, [facility] [address] [address] Nov, [facility] [address] [address] October, Impulse control disorder F63.9 ; Depress douglas disorder F32.9 and Mild intellectual disabilities F70 [facility] [address] [address] October, [facility] [address] [address] October, Impulse control disorder F63.9 ; Depress douglas disorder F32.9 and Mild intellectual disabilities F70 [facility] [address] [address] Sep, [facility] [address] [address] Sep, Impulse control disorder F63.9 ; Depress douglas disorder F32.9 and Mild intellectual disabilities F70 [facility] [address] [address] Sep, Seasonal allergic rhinitis due to pollen J30.1 [facility] [address] [address] Sep, [facility] [address] [address] Sep, [facility] [address] [address] Sep, Impulse control disorder F63.9 ; Depress douglas disorder F32.9 and Mild intellectual disabilities F70 [facility] [address] [address] Aug, Impulse control disorder F63.9 ; Depress douglas disorder F32.9 and Mild intellectual disabilities F70 [facility] [address] [address] Aug, [facility] [address] [address] Aug, [facility] [address] [address] Jul, [facility] [address] [address] Jul, Impulse control disorder F63.9 ; Depress douglas disorder F32.9 and Mild intellectual disabilities F70 [facility] [address] [id number] Jul, Dental examination Z01.20 [facility] [address] [address] Jul, Impulse control disorder F63.9 ; Depress douglas disorder F32.9 and Mild intellectual disabilities F70 [facility] [address] [address] Jul, [facility] [address] [address] Jun, [facility] [address] [address] Jun, Impulse control disorder F63.9 ; Depress douglas disorder F32.9 and Mild intellectual disabilities F70 [facility] [address] [address] Jun, [facility] [address] [address] Jun, [facility] [address] [address] Jun, Impulse control disorder F63.9 ; Depress douglas disorder F32.9 and Mild intellectual disabilities F70 [facility] [address] [address] May, Impulse control disorder F63.9 ; Depress douglas disorder F32.9 and Mild intellectual disabilities F70 [facility] [address] [address] May, Annual physical exam Z00.00 ; Other fati sarah R53.83 ; Seizures R56.9 ; Mild intellectual disabilities F70 and Impulse control disorder F63.9 [facility] [address] [address] May, [facility] [address] [address] May, Impulse control disorder F63.9 ; Depress douglas disorder F32.9 and Mild intellectual disabilities F70 [facility] [address] [id number] Apr, 2016 Encounter for dental examination Z01.20 [facility] [address] [address] Apr, Impulse control disorder F63.9 ; Depress douglas disorder F32.9 and Mild intellectual disabilities F70 [facility] [address] [address] Apr, [facility] [address] [address] Mar, Impulse control disorder F63.9 ; Depress douglas disorder F32.9 and Mild intellectual disabilities F70 [facility] [address] [address] Mar, Impulse control disorder F63.9 ; Depress douglas disorder F32.9 and Mild intellectual disabilities F70 [facility] [address] [address] Mar, [facility] [address] [address] Mar, [facility] [address] [address] Feb, Impulse control disorder F63.9 ; Depress douglas disorder F32.9 and Mild intellectual disabilities F70 [facility] [address] [address] Feb, Impulse control disorder F63.9 ; Depress douglas disorder F32.9 and Mild intellectual disabilities F70 [facility] [address] [address] Feb, [facility] [address] [address] Jan, Annual physical exam Z00.00 ; Impulse co ntrol disorder F63.9 ; Mild intellectual disabilities F70 ; Depressive disorder F32.[address] [facility] [address] [address] Jan, Impulse control disorder F63.9 ; Depress douglas disorder F32.9 and Mild intellectual disabilities F70 [facility] [address] [address] Jan, [facility] [address] [address] Jan, Impulse control disorder F63.9 ; Depress douglas disorder F32.9 and Mild intellectual disabilities F70 [facility] [address] [address] Jan, [facility] [address] [address] Jan, [facility] [address] [address] Dec, Impulse control disorder F63.9 ; Depress douglas disorder F32.9 and Mild intellectual disabilities F70 [facility] [address] [address] Dec, Impulse control disorder F63.9 ; Depress douglas disorder F32.9 and Mild intellectual disabilities F70 [facility] [address] [address] Dec, [facility] [address] [address] Dec, Depressive disorder F32.9 ; Impulse cont rol disorder F63.9 and Mild intellectual disabilities F70 [facility] [address] [address] Nov, [facility] [address] [address] Nov, Depressive disorder F32.9 ; Impulse cont rol disorder F63.9 and Mild intellectual disabilities F70 [facility] [address] [address] Nov, [facility] [address] [address] October, Depressive disorder F32.9 ; Impulse cont rol disorder F63.9 and Mild intellectual disabilities F70 [facility] [address] [address] October, [facility] [address] [address] October, [facility] [address] [address] October, Depressive disorder F32.9 ; Impulse cont rol disorder F63.9 and Mild intellectual disabilities F70 [facility] [address] [address] October, [facility] [address] [address] Sep, [facility] [address] [address] Sep, Depressive disorder F32.9 ; Impulse cont rol disorder F63.9 and Mild intellectual disabilities F70 [facility] [address] [address] Sep, Depressive disorder F32.9 ; Impulse cont rol disorder F63.9 and Mild intellectual disabilities F70 [facility] [address] [place] [id number] Sep, [facility] [address] [address] Aug, [facility] [address] [place] [id number] Aug, Depressive disorder F32.9 ; Impulse cont rol disorder F63.9 and Mild intellectual disabilities F70 [facility] [address] [address] Aug, Depressive disorder F32.9 ; Impulse cont rol disorder F63.9 and Mild intellectual disabilities F70 [facility] [address] [id number] Jul, Dental examination Z01.20 [facility] [address] [address] Jul, [facility] [address] [address] Jul, Depressive disorder F32.9 ; Impulse cont rol disorder F63.9 and Mild intellectual disabilities F70 [facility] [address] [address] 05 Jul, 2015 Depressive disorder F32.9 ; Impulse cont rol disorder F63.9 and Mild intellectual disabilities F70 [facility] [address] [address] Jul, Depression screening Z13.89 ; Drug juliae wm, 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 and Screening for STD sexually transmitted disease Z11.3 [facility] [address] [address] Jun, [facility] [address] [address] Jun, Depressive disorder F32.9 ; Impulse cont rol disorder F63.9 and Mild intellectual disabilities F70 [facility] [address] [address] Jun, Depressive disorder, not elsewhere class ified F32.9 ; Mild mental retardation F70 and Impulse control disorder F63.9 [facility] [address] [address] Jun, Depressive disorder, not elsewhere class ified F32.9 ; Impulse control disorder F63.9 and Mild intellectual disabilities F70 [facility] [address] [address] Jun, [facility] [address] [id number] Jun, Dental examination Z01.20 [facility] [address] [address] 17 May, 2015 Depressive disorder, not elsewhere class ified F32.9 ; Impulse control disorder F63.9 and Mild intellectual disabilities F70 [facility] [address] [address] May, [facility] [address] [address] May, [facility] [address] [address] May, Depressive disorder, not elsewhere class ified F32.9 ; Impulse control disorder F63.9 and Mild intellectual disabilities F70 [facility] [address] [address] May, Depressive disorder, not elsewhere class ified F32.9 ; Impulse control disorder F63.9 and Mild mental retardation F70 [facility] [address] [address] Apr, Depressive disorder, not elsewhere class ified F32.9 ; Impulse control disorder F63.9 and Mild intellectual disabilities F70 [facility] [address] [address] Apr, [facility] [address] [address] Mar, Depressive disorder, not elsewhere class ified F32.9 ; Impulse control disorder F63.9 and Mild intellectual disabilities F70 [facility] [address] [address] Mar, Depressive disorder, not elsewhere class ified F32.9 ; Impulse control disorder F63.9 and Mild intellectual disabilities F70 [place] [address] [address] Mar, [place] [address] [address] Mar, Encounter for immunization Z23 [place] [address] [address] Mar, Depressive disorder, not elsewhere class ified F32.9 ; Impulse control disorder F63.9 and Mild intellectual disabilities F70 [place] [address] [address] Feb, Depressive disorder, not elsewhere class ified 311 ; Impulse control disorder, unspecified 312.30 and Mild mental retardation 317 [place] [address] [address] Feb, [place] [address] [address] Feb, Depressive disorder, not elsewhere class ified 311 ; Impulse control disorder, unspecified 312.30 and Mild mental retardation 317 [place] [address] [address] Jan, Depressive disorder, not elsewhere class ified 311 ; Impulse control disorder, unspecified 312.30 and Mild mental retardation 317 [place] [address] [address] Jan, Depressive disorder, not elsewhere class ified 311 ; Impulse control disorder, unspecified 312.30 and Mild mental retardation 317 [place] [address] [address] Jan, [facility] [address] [place] [id number] [place] [address] Jan, Depressive disorder, not elsewhere class ified 311 ; Impulse control disorder, unspecified 312.30 and Mild mental retardation 317 [facility] [address] [place] [id number] [place] [address] Dec, Depressive disorder, not elsewhere class ified 311 ; Impulse control disorder, unspecified 312.30 and Mild mental retardation [address] [facility] [id number] [place] [address] Dec, [facility] [address] [id number] [place], [place] [id number] Dec, Dental examination V72.2 [facility] [id number] [place] [address] Dec, Heat rash 705.1 ; Seizures 780.39 and Hi gh risk medication use V58.69 [facility] [id number] [place] [address] Dec, [facility] [address] [address] Dec, Depressive disorder, not elsewhere class ified 311 ; Impulse control disorder, unspecified 312.30 and Mild mental retardation 317 [facility] [id number] [place] [address] Nov, Depressive disorder, not elsewhere class ified 311 ; Impulse control disorder, unspecified 312.30 and Mild mental retardation 317 [facility] [address] [id number] [place] [address] Nov, [facility] [address] [address] Nov, Nicotine addiction 305.1 [facility] [address] [id number] [place] [address] Nov, [facility] [address] [address] Nov, High risk medication use V58.69 [facility] [id number] [place] [address] 10 Nov, 2014 High risk medication use V58.69 [facility] [address] [address] Nov, Depressive disorder, not elsewhere class ified 311 ; Impulse control disorder, unspecified 312.30 and Mild mental retardation 317 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 [address] [address] October, Depressive disorder, not elsewhere class ified 311 ; Impulse control disorder, unspecified 312.30 and Mild mental retardation 317 [facility] [address] [address] October, [facility] [address] [address] October, Depressive disorder, not elsewhere class ified 311 ; Impulse control disorder, unspecified 312.30 and Mild mental retardation 317 [facility] [address] [address] October, [facility] [address] [id number] [place] [id number] October, Dental examination V72.2 [facility] [id number] [place] [address] Sep, Depressive disorder, not elsewhere class ified 311 ; Impulse control disorder 312.30 and Mild mental retardation 317 [facility] [address] [address] Sep, [facility] [address] [address] Sep, [facility] [address] [address] Aug, [facility] [address] [id number] [place] [address] 26 Aug, 2014 [facility] [address] [id number] [place] [address] Aug, [facility] [address] [id number] [place] [address] Aug, 2014 [facility] [address] [id number] [place] [address] 16 Aug, 2014 [facility] [address] [id number] [place] [address] 16 Aug, 2014 [facility] [address] [id number] [place] [address] Aug, [facility] [address] [id number] [place] [address] Aug, 2014 [facility] [address] [id number] [place] [address] Jul, 2014 [facility] [address] [id number] [place] [address] Jul, 2014 [facility] [address] [id number] [place] [address] Jul, 2014 [facility] [address] [id number] [place] [address] Jul, 2014 [facility] [address] [id number] [place] [address] 16 Jul, 2014 [facility] [address] [id number] [place] [address] 16 Jul, 2014 [facility] [address] [id number] [place] [address] 16 Jul, 2014 [facility] [address] [id number] [place] [address] 16 Jul, 2014 [facility] [address] [id number] [place] [address] 11 Jul, 2014 [facility] [address] [id number] [place] [address] Jul, [facility] [address] [facility] [id number] [place] [address] Jul, [facility] [address] [id number] [place] [address] Jul, [facility] [address] [id number] [place] [address] Jul, [facility] [address] [id number] [place] [address] Jul, [facility] [address] [id number] [place] [address] Jun, [facility] [address] [id number] [place] [address] Jun, [facility] [address] [id number] [place] [address] Jun, [facility] [address] [id number] [place] [address] Jun, [facility] [address] [id number] [place] [address] Jun, [facility] [address] [id number] [place] [address] Jun, [facility] [address] [id number] [place] [address] Jun, [facility] [address] [id number] [place] [address] Jun, [facility] [address] [id number] [place] [address] Jun, [facility] [address] [id number] [place] [address] Jun, [facility] [address] [id number] [place] [address] Jun, [facility] [address] [id number] [place] [address] Jun, [facility] [address] [id number] [place] [address] 08 Jun, 2014 [facility] [address] [id number] [place] [address] Jun, [facility] [address] [id number] [place] [address] Jun, [facility] [address] [id number] [place] [address] Jun, [facility] [address] [id number] [place] [address] Jun, [facility] [address] [id number] [place] [address] Jun, [facility] [address] [id number] [place] [address] Jun, [facility] [address] [id number] [place] [address] Jun, [facility] [address] [id number] [place] [address] May, [facility] [address] [id number] [place] [address] May, [facility] [address] [id number] [place] [address] May, [facility] [address] [id number] [place] [address] May, [facility] [address] [id number] [place] [address] May, [facility] [address] [id number] [place] [address] Apr, [facility] [id number] [place] [address] Apr, [facility] [address] [id number] [place] [address] Apr, [facility] [address] [id number] [place] [address] Apr, [facility] [address] [facility] [id number] [place] [address] Apr, [facility] [address] [facility] [id number] [place] [address] Apr, [facility] [address] [id number] [place] [address] Apr, [facility] [address] [id number] [place] [address] Apr, [facility] [address] [facility] [id number] [place] [address] Mar, [facility] [address] [id number] [place] [address] Mar, [facility] [address] [id number] [place] [address] Mar, [facility] [address] [id number] [place] [address] Mar, [facility] [address] [id number] [place] [address] Mar, [facility] [address] [id number] [place] [address] Mar, [facility] [address] [id number] [place] [address] Mar, [facility] [address] [id number] [place] [address] Mar, [facility] [address] [facility] [id number] [place] [address] Mar, [facility] [address] [facility] [id number] [place] [address] Mar, [facility] [address] [id number] [place] [address] Mar, [facility] [address] [id number] [place] [address] Mar, [facility] [address] [id number] [place] [address] 15 Mar, 2014 [facility] [address] [id number] [place] [address] Mar, [facility] [address] [id number] [place] [address] Mar, [facility] [address] [id number] [place] [address] Mar, [facility] [address] [id number] [place] [address] Mar, [facility] [address] [id number] [place] [address] Mar, [facility] [address] [id number] [place] [address] Mar, [facility] [address] [id number] [place] [address] Mar, [facility] [address] [id number] [place] [address] 24 Feb, 2013 [facility] [address] [id number] [place] [address] 24 Feb, 2013 [facility] [address] [id number] [place] [address] Feb, 2013 [facility] [address] [id number] [place] [address] Feb, 2013 [facility] [address] [id number] [place] [address] Feb, 2013 [facility] [address] [id number] [place] [address] 11 Feb, 2013 [facility] [address] [id number] [place] [address] 05 Feb, 2013 [facility] [address] [id number] [place] [address] 05 Feb, 2013 [facility] [address] [id number] [place] [address] Jan, [facility] [address] [id number] [place] [address] Jan, [facility] [address] [facility] [id number] [place] [address] Jan, [facility] [address] [id number] [place] [address] Jan, [facility] [address] [id number] [place] [address] Dec, [facility] [address] [facility] [id number] [place] [address] Dec, [facility] [address] [facility] [id number] [place] [address] Dec, [facility] [address] [id number] [place] [address] Dec, [facility] [address] [id number] [place] [address] Dec, [facility] [address] [id number] [place] [address] Dec, [facility] [address] [id number] [place] [address] Dec, [facility] [address] [id number] [place] [address] Dec, [facility] [address] [id number] [place] [address] Dec, [facility] [address] [id number] [place] [address] Dec, [facility] [address] [facility] [id number] [place] [address] Nov, [facility] [address] [id number] [place] [address] Nov, [facility] [address] [id number] [place] [address] Nov, [facility] [address] [id number] [place] [address] Nov, [facility] [address] [facility] [id number] [place] [address] Nov, [facility] [address] [facility] [id number] [place] [address] Nov, [facility] [address] [facility] [id number] [place] [address] Nov, [facility] [address] [facility] [id number] [place] [address] Nov, [facility] [address] [facility] [id number] [place] [address] Nov, [facility] [address] [facility] [id number] [place] [address] Nov, [facility] [address] [id number] [place] [address] Nov, [facility] [address] [id number] [place] [address] Nov, [facility] [address] [facility] [id number] [place] [address] October, [facility] [address] [id number] [place] [address] October, [facility] [address] [facility] [id number] [place] [address] October, [facility] [address] [id number] [place] [address] October, [facility] [address] [facility] [id number] [place] [address] October, [facility] [address] [facility] [id number] [place] [address] October, [facility] [address] [facility] [id number] [place] [address] October, [facility] [address] [id number] [place] [address] October, [facility] [address] [id number] [place] [address] October, [facility] [address] [id number] [place] [address] October, [facility] [address] [id number] [place] [address] Sep, [facility] [address] [id number] [place] [address] Sep, [facility] [address] [id number] [place] [address] Sep, [facility] [address] [id number] [place] [address] Sep, [facility] [address] [id number] [place] [address] Sep, [facility] [address] [id number] [place] [address] Sep, [facility] [address] [id number] [place] [address] Sep, [facility] [address] [id number] [place] [address] Sep, [facility] [address] [id number] [place] [address] Aug, [facility] [address] [id number] [place] [address] Aug, [facility] [address] [id number] [place] [address] Aug, [facility] [address] [id number] [place] [address] Aug, [facility] [address] [id number] [place] [address] Aug, [facility] [address] [id number] [place] [address] Aug, [facility] [address] [id number] [place] [address] Aug, [facility] [address] [id number] [place] [address] Aug, [facility] [address] [id number] [place] [address] Jul, [facility] [address] [id number] [place] [address] Jul, [facility] [address] [id number] [place] [address] Jul, [facility] [address] [id number] [place] [address] Jul, [facility] [address] [id number] [place] [address] Jul, [facility] [address] [id number] [place] [address] Jul, [facility] [address] [id number] [place] [address] Jul, [facility] [address] [id number] [place] [address] Jul, [facility] [address] [id number] [place] [address] Jun, [facility] [address] [id number] [place] [address] Jun, [facility] [address] [id number] [place] [address] Jun, [facility] [address] [id number] [place] [address] Jun, [facility] [address] [id number] [place] [address] Jun, [facility] [address] [id number] [place] [address] Jun, [facility] [address] [id number] [place] [address] Jun, [facility] [address] [id number] [place] [address] Jun, [facility] [address] [id number] [place] [address] May, [facility] [address] [id number] [place] [address] May, [facility] [address] [id number] [place] [address] May, [facility] [address] [id number] [place] [address] May, [facility] [address] [id number] [place] [address] May, [facility] [address] [id number] [place] [address] May, [facility] [address] [id number] [place] [address] Apr, [facility] [address] [id number] [place] [address] Apr, [facility] [address] [id number] [place] [address] Mar, [facility] [address] [id number] [place] [address] Mar, [facility] [address] [id number] [place] [address] Mar, [facility] [address] [id number] [place] [address] Mar, [facility] [address] [id number] [place] [address] Mar, [facility] [address] [id number] [place] [address] Feb, [facility] [address] [id number] [place] [address] Jan, [facility] [address] [id number] [place] [address] Jan, [facility] [address] [id number] [place] [address] Jan, [facility] [address] [id number] [place] [address] Jan, [facility] [address] [id number] [place] [address] Jan, [facility] [address] [id number] [place] [address] Dec, [facility] [address] [id number] [place] [address] Dec, [facility] [address] [id number] [place] [address] Dec, [facility] [address] [id number] [place] [address] Dec, [facility] [address] [id number] [place] [address] Nov, [facility] [address] [id number] [place] [address] Nov, [facility] [address] [id number] [place] [address] Nov, [facility] [address] [id number] [place] [address] October, [facility] [address] [id number] [place] [address] October, [facility] [address] [id number] [place] [address] October, [facility] [address] [id number] [place] [address] Sep, [facility] [address] [id number] [place] [address] Sep, [facility] [address] [id number] [place] [address] Aug, [facility] [address] [id number] [place] [address] Aug, [facility] [address] [id number] [place] [address] Jul, [facility] [address] [id number] [place] [address] Jul, [facility] [address] [id number] [place] [address] Jul, [facility] [address] [id number] [place] [address] Jul, [facility] [address] [id number] [place] [address] Jul, [facility] [address] [id number] [place] [address] Jun, [facility] [address] [id number] [place] [address] May, [facility] [address] [id number] [place] [address] 31 May, 2012 [facility] [address] [id number] [place] [address] May, [facility] [address] [id number] [place] [address] 14 May, 2012 [facility] [address] [id number] [place] [address] May, [facility] [address] [id number] [place] [address] May, [facility] [address] [id number] [place] [address] May, [facility] [address] [id number] [place] [address] May, [facility] [address] [id number] [place] [address] Apr, [facility] [address] [id number] [place] [address] Apr, [facility] [address] [id number] [place] [address] Apr, [facility] [address] [id number] [place] [address] Apr, [facility] [address] [id number] [place] [address] Mar, [facility] [address] [id number] [place] [address] Mar, [facility] [address] [id number] [place] [address] Mar, [facility] [address] [id number] [place] [address] Feb, [facility] [address] [id number] [place] [address] Feb, [facility] [address] [id number] [place] [address] Jan, [facility] [address] [id number] [place] [address] Jan, [facility] [address] [id number] [place] [address] Jan, [facility] [address] [id number] [place] [address] Dec, [facility] [address] [id number] [place] [address] Dec, [facility] [address] [id number] [place] [address] Dec, [facility] [address] [id number] [place] [address] Dec, [facility] [id number] [place] [address] Nov, [facility] [address] [id number] [place] [address] Nov, [facility] [address] [id number] [place] [address] Nov, [facility] [address] [id number] [place] [address] October, [facility] [address] [id number] [place] [address] October, [facility] [address] [id number] [place] [address] October, [facility] [address] [id number] [place] [address] Sep, [facility] [address] [id number] [place] [address] Sep, [facility] [address] [id number] [place] [address] Sep, [facility] [address] [id number] [place] [address] Aug, [facility] [id number] [place] [address] Aug, [facility] [address] [id number] [place] [address] Aug, [facility] [address] [id number] [place] [address] Jul, [facility] [address] [id number] [place] [address] Jun, [facility] [address] [id number] [place] [address] Jun, [facility] [address] [id number] [place] [address] May, [facility] [address] [id number] [place] [address] May, [facility] [address] [id number] [place] [address] May, [facility] [address] [id number] [place] [address] May, [facility] [address] [id number] [place] [address] Apr, [facility] [address] [id number] [place] [address] Apr, [facility] [id number] [place] [address] Apr, [facility] [id number] [place] [address] Apr, [facility] [id number] [place] [address] Apr, [facility] [address] [id number] [place] [address] Mar, [facility] [id number] [place] [address] Mar, [facility] [id number] [place] [address] Jan, [facility] [id number] [place] [address] May, [facility] [id number] [place] [address] Apr, [facility] [id number] [place] [address] Mar, [facility] [id number] [place] [address] Jun, [facility] [id number] [place] [address] Apr, [facility] [id number] [place] [address] Apr, IMMUNIZATIONS No Known Immunizations SOCIAL HISTORY Never Assessed REASON FOR VISIT PLAN OF CARE VITAL SIGNS MEDICATIONS Unknown Medications RESULTS No Results PROCEDURES No Known procedures INSTRUCTIONS MEDICATIONS ADMINISTERED No Known Medications MEDICAL (GENERAL) HISTORY Type Description Date Medical History seizures Surgical History No Surgical history information
--- OUTSIDE RECORDS SUMMARY | 2019-09-07 02:56 | XMS REPORT ---
Author Author Reymundo BERKOWITZ Organization [facility] Address [address] [place] [address] Care Team Providers Care Engine Tester Name Role Phone YANNICK BERKOWITZA Unavailable PROBLEMS Type Condition ICD9-CM Code [id number] Code Onset Dates Condition S tatus SNOMED Code Problem Alcohol abuse F10.10 Active 332720 05 Problem Relationship dysfunction Z63.9 Activ e [id number] Problem Impulse control disorder F63.9 Activ e [id number] Problem Depressive disorder F32.9 Active 41350061 Problem Mild intellectual disabilities F70 Active 04350981 Problem Seasonal allergic rhinitis due to pollen J30.1 Active 46925068 ALLERGIES No Information ENCOUNTERS Encounter Location Date Diagnosis [place] [address] [address] May, [place] [address] [address] Apr, [place] [address] [address] Apr, Depressive disorder F32.9 ; Impulse cont rol disorder F63.9 and Mild intellectual disabilities F70 [place] [address] [address] Apr, [facility] [address] [address] Apr, [facility] [address] [address] Apr, [place] [address] [address] 11 Apr, 2019 Impulse control disorder F63.9 ; Depress douglas disorder F32.9 and Mild intellectual disabilities F70 [place] [address] [place] [address] Mar, [facility] [address] [place] [id number] [place] [address] Mar, [facility] [address] [address] Mar, Encounter for immunization Z23 [facility] [address] [address] Dec, [facility] [address] [address] Dec, Seasonal allergic rhinitis due to pollen J30.1 [facility] [address] [address] October, Depressive disorder F32.9 ; Impulse cont rol disorder F63.9 and Mild intellectual disabilities F70 [facility] [address] [address] Jun, Impulse control disorder F63.9 ; Mild in tellectual disabilities F70 ; Relationship dysfunction Z63.9 and Depressive disorder F32.9 [facility] [address] [address] Jun, [facility] [address] [address] May, [facility] [address] [address] May, [facility] [address] [address] May, Encounter for immunization Z23 [facility] [address] [address] Apr, [facility] [address] [address] Apr, [facility] [address] [address] Mar, [facility] [address] [address] Mar, [facility] [address] [place] [id number] [place] [address] 26 Feb, 2018 Annual physical exam Z00.00 [facility] [address] [address] 25 Feb, 2018 Annual physical exam Z00.00 ; Mild intel lectual disabilities F70 and Encounter for immunization Z23 [facility] [address] [address] 11 Feb, 2018 [facility] [address] [address] Jan, [facility] [address] [address] Jan, Impulse control disorder F63.9 ; Mild in tellectual disabilities F70 and Depressive disorder F32.9 [facility] [address] [address] Nov, [facility] [address] [address] Nov, [facility] [address] [address] Nov, [facility] [address] [address] Nov, [facility] [address] [address] Nov, [facility] [address] [address] 05 Nov, 2017 Impulse control disorder F63.9 ; Depress douglas disorder F32.9 and Mild intellectual disabilities F70 [facility] [address] [address] October, [facility] [address] [address] October, Impulse control disorder F63.9 ; Depress douglas disorder F32.9 and Mild intellectual disabilities F70 [facility] [address] [address] Sep, [facility] [address] [address] Sep, Impulse control disorder F63.9 ; Depress douglas disorder F32.9 and Mild intellectual disabilities F70 [facility] [address] [address] Sep, Impulse control disorder F63.9 ; Depress douglas disorder F32.9 and Mild intellectual disabilities F70 [facility] [address] [address] Aug, [facility] [address] [address] Aug, Impulse control disorder F63.9 ; Depress douglas disorder F32.9 and Mild intellectual disabilities F70 [facility] [address] [id number] Aug, Dental examination Z01.20 [facility] [address] [address] Aug, [facility] [address] [address] Aug, Impulse control disorder F63.9 ; Depress douglas disorder F32.9 and Mild intellectual disabilities F70 [facility] [address] [address] Jul, Impulse control disorder F63.9 ; Depress douglas disorder F32.9 and Mild intellectual disabilities F70 [facility] [address] [id number] Jul, Dental examination Z01.20 [facility] [address] [address] Jul, [facility] [address] [address] Jun, Impulse control disorder F63.9 ; Depress douglas disorder F32.9 and Mild intellectual disabilities F70 [facility] [address] [address] 08 Jun, 2017 Impulse control disorder F63.9 ; Depress douglas disorder F32.9 and Mild intellectual disabilities F70 [facility] [address] [address] Jun, [facility] [address] [address] May, [facility] [address] [address] May, Impulse control disorder F63.9 ; Depress douglas disorder F32.9 and Mild intellectual disabilities F70 [place] [address] [address] Apr, Impulse control disorder F63.9 ; Depress douglas disorder F32.9 and Mild intellectual disabilities F70 [place] [address] [address] Apr, Seizures R56.9 [place] [address] [address] Apr, [place] [address] [address] Apr, Seizures R56.9 ; Tobacco abuse Z72.0 ; A lcohol abuse F10.10 and Encounter for immunization Z23 [place] [address] [address] Apr, Impulse control disorder F63.9 ; Depress douglas disorder F32.9 and Mild intellectual disabilities F70 [facility] [address] [address] Mar, Impulse control disorder F63.9 ; Depress douglas disorder F32.9 and Mild intellectual disabilities F70 [facility] [address] [address] Mar, [facility] [address] [address] Mar, Impulse control disorder F63.9 ; Depress douglas disorder F32.9 and Mild intellectual disabilities F70 [facility] [address] [address] Mar, [facility] [address] [address] Feb, Impulse control disorder F63.9 ; Depress douglas disorder F32.9 and Mild intellectual disabilities F70 [facility] [address] [address] Feb, [facility] [address] [address] Feb, Impulse control disorder F63.9 ; Depress douglas disorder F32.9 and Mild intellectual disabilities F70 [facility] [address] [address] Jan, Annual physical exam Z00.00 ; Right hand pain M79.641 ; Impulse control disorder F63.9 ; Mild intellectual disabilities F70 and Depressive disorder F32.9 [facility] [address] [address] Jan, Impulse control disorder F63.9 ; Depress douglas disorder F32.9 and Mild intellectual disabilities F70 [facility] [address] [address] Jan, [facility] [address] [address] Jan, Impulse control disorder F63.9 ; Depress douglas disorder F32.9 and Mild intellectual disabilities F70 [facility] [address] [address] Jan, Impulse control disorder F63.9 ; Depress douglas disorder F32.9 and Mild intellectual disabilities F70 [facility] [address] [address] Dec, [facility] [address] [address] Dec, Impulse control disorder F63.9 ; Depress douglas disorder F32.9 and Mild intellectual disabilities F70 [facility] [address] [address] Nov, Impulse control disorder F63.9 ; Depress douglas disorder F32.9 and Mild intellectual disabilities F70 [facility] [address] [address] Nov, [facility] [address] [address] Nov, [facility] [address] [address] Nov, [facility] [address] [address] October, Impulse control disorder F63.9 ; Depress douglas disorder F32.9 and Mild intellectual disabilities F70 [facility] [address] [address] October, [facility] [address] [address] October, Impulse control disorder F63.9 ; Depress douglas disorder F32.9 and Mild intellectual disabilities F70 [facility] [address] [address] Sep, [facility] [address] [address] Sep, Impulse control disorder F63.9 ; Depress douglas disorder F32.9 and Mild intellectual disabilities F70 [facility] [address] [address] Sep, Seasonal allergic rhinitis due to pollen J30.1 [facility] [address] [address] Sep, [facility] [address] [address] Sep, [facility] [address] [address] Sep, Impulse control disorder F63.9 ; Depress douglas disorder F32.9 and Mild intellectual disabilities F70 [facility] [address] [address] Aug, Impulse control disorder F63.9 ; Depress douglas disorder F32.9 and Mild intellectual disabilities F70 [facility] [address] [address] Aug, [facility] [address] [address] Aug, [facility] [address] [address] Jul, [facility] [address] [address] Jul, Impulse control disorder F63.9 ; Depress douglas disorder F32.9 and Mild intellectual disabilities F70 [facility] [address] [id number] Jul, Dental examination Z01.20 [facility] [address] [address] Jul, Impulse control disorder F63.9 ; Depress douglas disorder F32.9 and Mild intellectual disabilities F70 [facility] [address] [address] Jul, [facility] [address] [address] Jun, [facility] [address] [address] Jun, Impulse control disorder F63.9 ; Depress douglas disorder F32.9 and Mild intellectual disabilities F70 [facility] [address] [address] Jun, [facility] [address] [address] Jun, [facility] [address] [address] Jun, Impulse control disorder F63.9 ; Depress douglas disorder F32.9 and Mild intellectual disabilities F70 [facility] [address] [address] May, Impulse control disorder F63.9 ; Depress douglas disorder F32.9 and Mild intellectual disabilities F70 [facility] [address] [address] May, Annual physical exam Z00.00 ; Other fati sarah R53.83 ; Seizures R56.9 ; Mild intellectual disabilities F70 and Impulse control disorder F63.9 [facility] [address] [address] May, [facility] [address] [address] May, Impulse control disorder F63.9 ; Depress douglas disorder F32.9 and Mild intellectual disabilities F70 [facility] [address] [id number] 30 Apr, 2016 Encounter for dental examination Z01.20 [facility] [address] [address] Apr, Impulse control disorder F63.9 ; Depress douglas disorder F32.9 and Mild intellectual disabilities F70 [facility] [address] [address] Apr, [facility] [address] [address] Mar, Impulse control disorder F63.9 ; Depress douglas disorder F32.9 and Mild intellectual disabilities F70 [facility] [address] [address] Mar, Impulse control disorder F63.9 ; Depress douglas disorder F32.9 and Mild intellectual disabilities F70 [facility] [address] [address] Mar, [facility] [address] [address] Mar, [facility] [address] [address] Feb, Impulse control disorder F63.9 ; Depress douglas disorder F32.9 and Mild intellectual disabilities F70 [facility] [address] [address] Feb, Impulse control disorder F63.9 ; Depress douglas disorder F32.9 and Mild intellectual disabilities F70 [facility] [address] [address] Feb, [facility] [address] [address] Jan, Annual physical exam Z00.00 ; Impulse co ntrol disorder F63.9 ; Mild intellectual disabilities F70 ; Depressive disorder F32.9 and Seizures R56.9 [facility] [address] [address] Jan, Impulse control disorder F63.9 ; Depress douglas disorder F32.9 and Mild intellectual disabilities F70 [facility] [address] [address] Jan, [facility] [address] [address] Jan, Impulse control disorder F63.9 ; Depress douglas disorder F32.9 and Mild intellectual disabilities F70 [facility] [address] [address] Jan, [facility] [address] [address] Jan, [facility] [address] [address] Dec, Impulse control disorder F63.9 ; Depress douglas disorder F32.9 and Mild intellectual disabilities F70 [facility] [address] [address] Dec, Impulse control disorder F63.9 ; Depress douglas disorder F32.9 and Mild intellectual disabilities F70 [facility] [address] [address] Dec, [facility] [address] [address] Dec, Depressive disorder F32.9 ; Impulse cont rol disorder F63.9 and Mild intellectual disabilities F70 [facility] [address] [address] Nov, [facility] [address] [address] Nov, Depressive disorder F32.9 ; Impulse cont rol disorder F63.9 and Mild intellectual disabilities F70 [facility] [address] [address] Nov, [facility] [address] [address] October, Depressive disorder F32.9 ; Impulse cont rol disorder F63.9 and Mild intellectual disabilities F70 [facility] [address] [address] October, [facility] [address] [address] October, [facility] [address] [address] October, Depressive disorder F32.9 ; Impulse cont rol disorder F63.9 and Mild intellectual disabilities F70 [facility] [address] [address] October, [facility] [address] [address] Sep, [facility] [address] [address] Sep, Depressive disorder F32.9 ; Impulse cont rol disorder F63.9 and Mild intellectual disabilities F70 [facility] [address] [address] Sep, Depressive disorder F32.9 ; Impulse cont rol disorder F63.9 and Mild intellectual disabilities F70 [facility] [address] [place] [id number] Sep, [facility] [address] [address] Aug, [facility] [address] [place] [id number] Aug, Depressive disorder F32.9 ; Impulse cont rol disorder F63.9 and Mild intellectual disabilities F70 [facility] [address] [address] Aug, Depressive disorder F32.9 ; Impulse cont rol disorder F63.9 and Mild intellectual disabilities F70 [facility] [address] [id number] Jul, Dental examination Z01.20 [facility] [address] [address] Jul, [facility] [address] [address] Jul, Depressive disorder F32.9 ; Impulse cont rol disorder F63.9 and Mild intellectual disabilities F70 [facility] [address] [address] 05 Jul, 2015 Depressive disorder F32.9 ; Impulse cont rol disorder F63.9 and Mild intellectual disabilities F70 [facility] [address] [address] Jul, Depression screening Z13.89 ; Drug juliae wm, 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 and Screening for STD sexually transmitted disease Z11.3 [facility] [address] [address] Jun, [facility] [address] [address] Jun, Depressive disorder F32.9 ; Impulse cont rol disorder F63.9 and Mild intellectual disabilities F70 [facility] [address] [address] Jun, Depressive disorder, not elsewhere class ified F32.9 ; Mild mental retardation F70 and Impulse control disorder F63.9 [facility] [address] [address] Jun, Depressive disorder, not elsewhere class ified F32.9 ; Impulse control disorder F63.9 and Mild intellectual disabilities F70 [facility] [address] [address] Jun, [facility] [address] [id number] Jun, Dental examination Z01.20 [facility] [address] [address] 17 May, 2015 Depressive disorder, not elsewhere class ified F32.9 ; Impulse control disorder F63.9 and Mild intellectual disabilities F70 [facility] [address] [address] May, [facility] [address] [address] May, [facility] [address] [address] May, Depressive disorder, not elsewhere class ified F32.9 ; Impulse control disorder F63.9 and Mild intellectual disabilities F70 [facility] [address] [address] May, Depressive disorder, not elsewhere class ified F32.9 ; Impulse control disorder F63.9 and Mild mental retardation F70 [facility] [address] [address] Apr, Depressive disorder, not elsewhere class ified F32.9 ; Impulse control disorder F63.9 and Mild intellectual disabilities F70 [facility] [address] [address] Apr, [facility] [address] [address] Mar, Depressive disorder, not elsewhere class ified F32.9 ; Impulse control disorder F63.9 and Mild intellectual disabilities F70 [facility] [address] [address] Mar, Depressive disorder, not elsewhere class ified F32.9 ; Impulse control disorder F63.9 and Mild intellectual disabilities F70 [place] [address] [address] Mar, [place] [address] [address] Mar, Encounter for immunization Z23 [place] [address] [address] Mar, Depressive disorder, not elsewhere class ified F32.9 ; Impulse control disorder F63.9 and Mild intellectual disabilities F70 [place] [address] [address] Feb, Depressive disorder, not elsewhere class ified 311 ; Impulse control disorder, unspecified 312.30 and Mild mental retardation 317 [place] [address] [address] Feb, [place] [address] [address] Feb, Depressive disorder, not elsewhere class ified 311 ; Impulse control disorder, unspecified 312.30 and Mild mental retardation 317 [place] [address] [address] Jan, Depressive disorder, not elsewhere class ified 311 ; Impulse control disorder, unspecified 312.30 and Mild mental retardation 317 [place] [address] [address] Jan, Depressive disorder, not elsewhere class ified 311 ; Impulse control disorder, unspecified 312.30 and Mild mental retardation 317 [place] [address] [address] Jan, [facility] [address] [place] [address] [place] [address] Jan, Depressive disorder, not elsewhere class ified 311 ; Impulse control disorder, unspecified 312.30 and Mild mental retardation 317 [facility] [address] [place] [id number] [place] [address] Dec, Depressive disorder, not elsewhere class ified 311 ; Impulse control disorder, unspecified 312.30 and Mild mental retardation 317 [facility] [address] [address] [place] [address] Dec, [facility] [address] [id number] [place] [id number] Dec, Dental examination V72.2 [facility] [address] [place] [address] [place] [address] Dec, Heat rash 705.1 ; Seizures 780.39 and Hi gh risk medication use V58.69 [facility] [address] [place] [address] [place] [address] Dec, [facility] [address] [address] Dec, Depressive disorder, not elsewhere class ified 311 ; Impulse control disorder, unspecified 312.30 and Mild mental retardation 317 [facility] [address] [place] [id number] [place] [address] Nov, Depressive disorder, not elsewhere class ified 311 ; Impulse control disorder, unspecified 312.30 and Mild mental retardation 317 [facility] [address] [address] [address] [place] [address] Nov, [facility] [address] [address] Nov, Nicotine addiction 305.1 [facility] [address] [address] [address] [place] [address] Nov, [facility] [address] [address] Nov, High risk medication use V58.69 [facility] [address] [place] [id number] [place] [address] 10 Nov, 2014 High risk medication use V58.69 [facility] [address] [address] Nov, Depressive disorder, not elsewhere class ified 311 ; Impulse control disorder, unspecified 312.30 and Mild mental retardation 317 [facility] [address] [address] Nov, Depressive disorder, not elsewhere class ified 311 ; 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 and Impulse control disorder, unspecified 312.30 [facility] [address] [address] October, Depressive disorder, not elsewhere class ified 311 ; Impulse control disorder, unspecified 312.30 and Mild mental retardation 317 [facility] [address] [address] October, [facility] [address] [address] October, Depressive disorder, not elsewhere class ified 311 ; Impulse control disorder, unspecified 312.30 and Mild mental retardation 317 [facility] [address] [address] October, [facility] [address] [id number] [place] [id number] October, Dental examination V72.2 [facility] [address] [address] [address] [place] [address] Sep, Depressive disorder, not elsewhere class ified 311 ; Impulse control disorder 312.30 and Mild mental retardation 317 [facility] [address] [address] Sep, [facility] [address] [address] Sep, [facility] [address] [address] Aug, [facility] [address] [id number] [place] [id number] 26 Aug, 2014 [facility] [address] [id number] [place] [address] Aug, [facility] [address] [id number] [place] [address] Aug, 2014 [facility] [address] [id number] [place] [address] 16 Aug, 2014 [facility] [address] [id number] [place] [id number] 16 Aug, 2014 [facility] [address] [id number] [place] [address] Aug[facility] [address] [id number] [place] [address] Aug, 2014 [facility] [address] [id number] [place] [address] Jul, 2014 [facility] [address] [id number] [place] [address] Jul, 2014 [facility] [address] [id number] [place] [address] Jul, 2014 [facility] [address] [id number] [place] [address] Jul, 2014 [facility] [address] [id number] [place] [address] 16 Jul, 2014 [facility] [address] [id number] [place] [address] 16 Jul, 2014 [facility] [address] [id number] [place] [address] 16 Jul, 2014 [facility] [address] [id number] [place] [address] 16 Jul, 2014 [facility] [address] [id number] [place] [address] 11 Jul, 2014 [facility] [address] [id number] [place] [address] Jul, [facility] [address] [facility] [id number] [place] [address] Jul, [facility] [address] [id number] [place] [address] Jul, [facility] [address] [id number] [place] [address] Jul, [facility] [address] [id number] [place] [address] Jul, [facility] [address] [id number] [place] [address] Jun, [facility] [address] [id number] [place] [address] Jun, [facility] [address] [id number] [place] [address] Jun, [facility] [address] [id number] [place] [address] Jun, [facility] [address] [id number] [place] [address] Jun, [facility] [address] [id number] [place] [address] Jun, [facility] [address] [id number] [place] [address] Jun, [facility] [address] [id number] [place] [address] Jun, [facility] [address] [id number] [place] [address] Jun, [facility] [address] [id number] [place] [address] Jun, [facility] [address] [id number] [place] [address] Jun, [facility] [address] [id number] [place] [address] Jun, [facility] [address] [id number] [place] [address] 08 Jun, 2014 [facility] [address] [id number] [place] [address] Jun, [facility] [address] [id number] [place] [address] Jun, [facility] [address] [id number] [place] [address] Jun, [facility] [address] [id number] [place] [address] Jun, [facility] [address] [id number] [place] [address] Jun, [facility] [address] [id number] [place] [address] Jun, [facility] [address] [id number] [place] [address] Jun, [facility] [address] [id number] [place] [address] May, [facility] [address] [id number] [place] [address] May, [facility] [address] [id number] [place] [address] May, [facility] [address] [id number] [place] [address] May, [facility] [address] [id number] [place] [address] May, [facility] [address] [id number] [place] [address] Apr, [facility] [id number] [place] [address] Apr, [facility] [address] [id number] [place] [address] Apr, [facility] [address] [id number] [place] [address] Apr, [facility] [address] [facility] [id number] [place] [address] Apr, [facility] [address] [facility] [id number] [place] [address] Apr, [facility] [address] [id number] [place] [address] Apr, [facility] [address] [id number] [place] [address] Apr, [facility] [address] [facility] [id number] [place] [address] Mar, [facility] [address] [id number] [place] [address] Mar, [facility] [address] [id number] [place] [address] Mar, [facility] [address] [id number] [place] [address] Mar, [facility] [address] [id number] [place] [address] Mar, [facility] [address] [id number] [place] [address] Mar, [facility] [address] [id number] [place] [address] Mar, [facility] [address] [id number] [place] [address] Mar, [facility] [address] [facility] [id number] [place] [address] Mar, [facility] [address] [facility] [id number] [place] [address] Mar, [facility] [address] [id number] [place] [address] Mar, [facility] [address] [id number] [place] [address] Mar, [facility] [address] [id number] [place] [address] 15 Mar, 2014 [facility] [address] [id number] [place] [address] Mar, [facility] [address] [id number] [place] [address] Mar, [facility] [address] [id number] [place] [address] Mar, [facility] [address] [id number] [place] [address] Mar, [facility] [address] [id number] [place] [address] Mar, [facility] [address] [id number] [place] [address] Mar, [facility] [address] [id number] [place] [address] Mar, [facility] [address] [id number] [place] [address] 24 Feb, 2013 [facility] [address] [id number] [place] [address] 24 Feb, 2013 [facility] [address] [id number] [place] [address] Feb, 2013 [facility] [address] [id number] [place] [address] Feb, 2013 [facility] [address] [id number] [place] [address] Feb, 2013 [facility] [address] [id number] [place] [address] 11 Feb, 2013 [facility] [address] [id number] [place] [address] 05 Feb, 2013 [facility] [address] [id number] [place] [address] 05 Feb, 2013 [facility] [address] [id number] [place] [address] Jan, [facility] [address] [id number] [place] [address] Jan, [facility] [address] [facility] [id number] [place] [address] Jan, [facility] [address] [id number] [place] [address] Jan, [facility] [address] [id number] [place] [address] Dec, [facility] [address] [facility] [id number] [place] [address] Dec, [facility] [address] [facility] [id number] [place] [address] Dec, [facility] [address] [id number] [place] [address] Dec, [facility] [address] [id number] [place] [address] Dec, [facility] [address] [id number] [place] [address] Dec, [facility] [address] [id number] [place] [address] Dec, [facility] [address] [id number] [place] [address] Dec, [facility] [address] [id number] [place] [address] Dec, [facility] [address] [id number] [place] [address] Dec, [facility] [address] [facility] [id number] [place] [address] Nov, [facility] [address] [id number] [place] [address] Nov, [facility] [address] [id number] [place] [address] Nov, [facility] [address] [id number] [place] [address] Nov, [facility] [address] [facility] [id number] [facility] [place] [address] Nov, [facility] [address] [facility] [id number] [facility] [place] [address] Nov, [facility] [address] [facility] [id number] [place] [address] Nov, [facility] [address] [facility] [id number] [facility] [place] [address] Nov, [facility] [address] [facility] [id number] [facility] [place] [address] Nov, [facility] [address] [facility] [id number] [place] [address] Nov, [facility] [address] [id number] [place] [address] Nov, [facility] [address] [id number] [place] [address] Nov, [facility] [address] [facility] [id number] [place] [address] October, [facility] [address] [id number] [place] [address] October, [facility] [address] [facility] [id number] [place] [address] October, [facility] [address] [id number] [place] [address] October, [facility] [address] [facility] [id number] [place] [address] October, [facility] [address] [facility] [id number] [place] [address] October, [facility] [address] [facility] [id number] [place] [address] October, [facility] [address] [id number] [place] [address] October, [facility] [address] [id number] [facility] [place] [address] October, [facility] [address] [id number] [place] [address] October, [facility] [address] [id number] [place] [address] Sep, [facility] [address] [id number] [place] [address] Sep, [facility] [address] [id number] [place] [address] Sep, [facility] [address] [id number] [place] [address] Sep, [facility] [address] [id number] [place] [address] Sep, [facility] [address] [id number] [place] [address] Sep, [facility] [address] [id number] [place] [address] Sep, [facility] [address] [id number] [place] [address] Sep, [facility] [address] [id number] [place] [address] Aug, [facility] [address] [id number] [place] [address] Aug, [facility] [address] [id number] [place] [address] Aug, [facility] [address] [id number] [place] [address] Aug, [facility] [address] [id number] [place] [address] Aug, [facility] [address] [id number] [place] [address] Aug, [facility] [address] [id number] [place] [address] Aug, [facility] [address] [id number] [place] [address] Aug, [facility] [address] [id number] [place] [address] Jul, [facility] [address] [id number] [place] [address] Jul, [facility] [address] [id number] [place] [address] Jul, [facility] [address] [id number] [place] [address] Jul, [facility] [address] [id number] [place] [address] Jul, [facility] [address] [id number] [place] [address] Jul, [facility] [address] [id number] [place] [address] Jul, [facility] [address] [id number] [place] [address] Jul, [facility] [address] [id number] [place] [address] Jun, [facility] [address] [id number] [place] [address] Jun, [facility] [address] [id number] [place] [address] Jun, [facility] [address] [id number] [place] [address] Jun, [facility] [address] [id number] [place] [address] Jun, [facility] [address] [id number] [place] [address] Jun, [facility] [address] [id number] [place] [address] Jun, [facility] [address] [id number] [place] [address] Jun, [facility] [address] [id number] [place] [address] May, [facility] [address] [id number] [place] [address] May, [facility] [address] [id number] [place] [address] May, [facility] [address] [id number] [place] [address] May, [facility] [address] [id number] [place] [address] May, [facility] [address] [id number] [place] [address] May, [facility] [address] [id number] [place] [address] Apr, [facility] [address] [id number] [place] [address] Apr, [facility] [address] [id number] [place] [address] Mar, [facility] [address] [id number] [place] [address] Mar, [facility] [address] [id number] [place] [address] Mar, [facility] [address] [id number] [place] [address] Mar, [facility] [address] [id number] [place] [address] Mar, [facility] [address] [id number] [place] [address] Feb, [facility] [address] [id number] [place] [address] Jan, [facility] [address] [id number] [place] [address] Jan, [facility] [address] [id number] [place] [address] Jan, [facility] [address] [id number] [place] [address] Jan, [facility] [address] [id number] [place] [address] Jan, [facility] [address] [id number] [place] [address] Dec, [facility] [address] [id number] [place] [address] Dec, [facility] [address] [id number] [place] [address] Dec, [facility] [address] [id number] [place] [address] Dec, [facility] [address] [id number] [place] [address] Nov, [facility] [address] [id number] [place] [address] Nov, [facility] [address] [id number] [place] [address] Nov, [facility] [address] [id number] [place] [address] October, [facility] [address] [id number] [place] [address] October, [facility] [address] [id number] [place] [address] October, [facility] [address] [id number] [place] [address] Sep, [facility] [address] [id number] [place] [address] Sep, [facility] [address] [id number] [place] [address] Aug, [facility] [address] [id number] [place] [address] Aug, [facility] [address] [id number] [place] [address] Jul, [facility] [address] [id number] [place] [address] Jul, [facility] [address] [id number] [place] [address] Jul, [facility] [address] [id number] [place] [address] Jul, [facility] [address] [id number] [place] [address] Jul, [facility] [address] [id number] [place] [address] Jun, [facility] [address] [id number] [place] [address] May, [facility] [address] [id number] [place] [address] 31 May, 2012 [facility] [address] [id number] [place] [address] May, [facility] [address] [id number] [place] [address] 14 May, 2012 [facility] [address] [id number] [place] [address] May, [facility] [address] [id number] [place] [address] May, [facility] [address] [id number] [place] [address] May, [facility] [address] [id number] [place] [address] May, [facility] [address] [id number] [place] [address] Apr, [facility] [address] [id number] [place] [address] Apr, [facility] [address] [id number] [place] [address] Apr, [facility] [address] [id number] [place] [address] Apr, [facility] [address] [id number] [place] [address] Mar, [facility] [address] [id number] [place] [address] Mar, [facility] [address] [id number] [place] [address] Mar, [facility] [address] [id number] [place] [address] Feb, [facility] [address] [id number] [place] [address] Feb, [facility] [address] [id number] [place] [address] Jan, [facility] [address] [id number] [place] [address] Jan, [facility] [address] [id number] [place] [address] Jan, [facility] [address] [id number] [place] [address] Dec, [facility] [address] [id number] [place] [address] Dec, [facility] [address] [id number] [place] [address] Dec, [facility] [address] [id number] [place] [address] Dec, [facility] [id number] [place] [address] Nov, [facility] [address] [id number] [place] [address] Nov, [facility] [address] [id number] [place] [address] Nov, [facility] [address] [id number] [place] [address] October, [facility] [address] [id number] [place] [address] October, [facility] [address] [id number] [place] [address] October, [facility] [address] [id number] [place] [address] Sep, [facility] [address] [id number] [place] [address] Sep, [facility] [address] [id number] [place] [address] Sep, [facility] [address] [id number] [place] [address] Aug, [facility] [id number] [place] [address] Aug, [facility] [address] [id number] [place] [address] Aug, [facility] [address] [id number] [place] [address] Jul, [facility] [address] [id number] [place] [address] Jun, [facility] [address] [id number] [place] [address] Jun, [facility] [address] [id number] [place] [address] May[facility] [address] [id number] [place] [address] May, [facility] [address] [id number] [place] [address] May, [facility] [address] [id number] [place] [address] May, [facility] [address] [id number] [place] [address] Apr, [facility] [address] [id number] [place] [address] Apr, [facility] [id number] [place] [address] Apr, [facility] [id number] [place] [address] Apr, [facility] [id number] [place] [address] Apr, [facility] [address] [id number] [place] [address] Mar, [facility] [id number] [place] [address] Mar, [facility] [id number] [place] [address] Jan, [facility] [id number] [place] [address] May, [facility] [id number] [place] [address] Apr, [facility] [id number] [place] [address] Mar, [facility] [id number] [place] [address] Jun, [facility] [id number] [place] [address] Apr, [facility] [address] [id number] [place] [address] Apr, IMMUNIZATIONS No Known Immunizations SOCIAL HISTORY Never Assessed REASON FOR VISIT PLAN OF CARE VITAL SIGNS MEDICATIONS Unknown Medications RESULTS No Results PROCEDURES No Known procedures INSTRUCTIONS MEDICATIONS ADMINISTERED No Known Medications MEDICAL (GENERAL) HISTORY Type Description Date Medical History seizures Surgical History No Surgical history information
--- OUTSIDE RECORDS SUMMARY | 2019-09-07 02:56 | XMS REPORT ---
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 Activ e 587632119 Problem Impulse control disorder F63.9 Activ e 57494585 Problem Depressive disorder F32.9 Active 55902690 Problem Mild intellectual disabilities F70 Active 92340533 Problem Seasonal allergic rhinitis due to pollen J30.1 Active 49068913 ALLERGIES No Information ENCOUNTERS Encounter Location Date Diagnosis [place] [address] [address] May, [place] [address] [address] Apr, [place] [address] [address] Apr, Depressive disorder F32.9 ; Impulse cont rol disorder F63.9 and Mild intellectual disabilities F70 [place] [address] [address] Apr, [facility] [address] [address] Apr, [facility] [address] [address] Apr, [place] [address] [address] Apr, Impulse control disorder F63.9 ; Depress douglas disorder F32.9 and Mild intellectual disabilities F70 [place] [address] [place] [address] Mar, [facility] [address] [place] [id number] [place] [address] Mar, [facility] [address] [address] Mar, Encounter for immunization Z23 [facility] [address] [address] Dec, [facility] [address] [address] Dec, Seasonal allergic rhinitis due to pollen J30.1 [facility] [address] [address] October, Depressive disorder F32.9 ; Impulse cont rol disorder F63.9 and Mild intellectual disabilities F70 [facility] [address] [address] Jun, Impulse control disorder F63.9 ; Mild in tellectual disabilities F70 ; Relationship dysfunction Z63.9 and Depressive disorder F32.9 [facility] [address] [address] Jun, [facility] [address] [address] May, [facility] [address] [address] May, [facility] [address] [address] May, Encounter for immunization Z23 [facility] [address] [address] Apr, [facility] [address] [address] Apr, [facility] [address] [address] Mar, [facility] [address] [address] Mar, [facility] [address] [place] [id number] [place] [address] 26 Feb, 2018 Annual physical exam Z00.00 [facility] [address] [address] 25 Feb, 2018 Annual physical exam Z00.00 ; Mild intel lectual disabilities F70 and Encounter for immunization Z23 [facility] [address] [address] 11 Feb, 2018 [facility] [address] [address] Jan, [facility] [address] [address] Jan, Impulse control disorder F63.9 ; Mild in tellectual disabilities F70 and Depressive disorder F32.9 [facility] [address] [address] Nov, [facility] [address] [address] Nov, [facility] [address] [address] Nov, [facility] [address] [address] Nov, [facility] [address] [address] Nov, [facility] [address] [address] 05 Nov, 2017 Impulse control disorder F63.9 ; Depress douglas disorder F32.9 and Mild intellectual disabilities F70 [facility] [address] [address] October, [facility] [address] [address] October, Impulse control disorder F63.9 ; Depress douglas disorder F32.9 and Mild intellectual disabilities F70 [facility] [address] [address] Sep, [facility] [address] [address] Sep, Impulse control disorder F63.9 ; Depress douglas disorder F32.9 and Mild intellectual disabilities F70 [facility] [address] [address] Sep, Impulse control disorder F63.9 ; Depress douglas disorder F32.9 and Mild intellectual disabilities F70 [facility] [address] [address] Aug, [facility] [address] [address] Aug, Impulse control disorder F63.9 ; Depress douglas disorder F32.9 and Mild intellectual disabilities F70 [facility] [address] [id number] Aug, Dental examination Z01.20 [facility] [address] [address] Aug, [facility] [address] [address] Aug, Impulse control disorder F63.9 ; Depress douglas disorder F32.9 and Mild intellectual disabilities F70 [facility] [address] [address] Jul, Impulse control disorder F63.9 ; Depress douglas disorder F32.9 and Mild intellectual disabilities F70 [facility] [address] [id number] Jul, Dental examination Z01.20 [facility] [address] [address] Jul, [facility] [address] [address] Jun, Impulse control disorder F63.9 ; Depress douglas disorder F32.9 and Mild intellectual disabilities F70 [facility] [address] [address] 08 Jun, 2017 Impulse control disorder F63.9 ; Depress douglas disorder F32.9 and Mild intellectual disabilities F70 [facility] [address] [address] Jun, [facility] [address] [address] May, [facility] [address] [address] May, Impulse control disorder F63.9 ; Depress douglas disorder F32.9 and Mild intellectual disabilities F70 [place] [address] [address] Apr, Impulse control disorder F63.9 ; Depress douglas disorder F32.9 and Mild intellectual disabilities F70 [place] [address] [address] Apr, Seizures R56.9 [place] [address] [address] Apr, [place] [address] [address] Apr, Seizures R56.9 ; Tobacco abuse Z72.0 ; A lcohol abuse F10.10 and Encounter for immunization Z23 [place] [address] [address] Apr, Impulse control disorder F63.9 ; Depress douglas disorder F32.9 and Mild intellectual disabilities F70 [facility] [address] [address] Mar, Impulse control disorder F63.9 ; Depress douglas disorder F32.9 and Mild intellectual disabilities F70 [facility] [address] [address] Mar, [facility] [address] [address] Mar, Impulse control disorder F63.9 ; Depress douglas disorder F32.9 and Mild intellectual disabilities F70 [facility] [address] [address] Mar, [facility] [address] [address] Feb, Impulse control disorder F63.9 ; Depress douglas disorder F32.9 and Mild intellectual disabilities F70 [facility] [address] [address] Feb, [facility] [address] [address] Feb, Impulse control disorder F63.9 ; Depress douglas disorder F32.9 and Mild intellectual disabilities F70 [facility] [address] [address] Jan, Annual physical exam Z00.00 ; Right hand pain M79.641 ; Impulse control disorder F63.9 ; Mild intellectual disabilities F70 and Depressive disorder F32.9 [facility] [address] [address] Jan, Impulse control disorder F63.9 ; Depress douglas disorder F32.9 and Mild intellectual disabilities F70 [facility] [address] [address] Jan, [facility] [address] [address] Jan, Impulse control disorder F63.9 ; Depress douglas disorder F32.9 and Mild intellectual disabilities F70 [facility] [address] [address] Jan, Impulse control disorder F63.9 ; Depress douglas disorder F32.9 and Mild intellectual disabilities F70 [facility] [address] [address] Dec, [facility] [address] [address] Dec, Impulse control disorder F63.9 ; Depress douglas disorder F32.9 and Mild intellectual disabilities F70 [facility] [address] [address] Nov, Impulse control disorder F63.9 ; Depress douglas disorder F32.9 and Mild intellectual disabilities F70 [facility] [address] [address] Nov, [facility] [address] [address] Nov, [facility] [address] [address] Nov, [facility] [address] [address] October, Impulse control disorder F63.9 ; Depress douglas disorder F32.9 and Mild intellectual disabilities F70 [facility] [address] [address] October, [facility] [address] [address] October, Impulse control disorder F63.9 ; Depress douglas disorder F32.9 and Mild intellectual disabilities F70 [facility] [address] [address] Sep, [facility] [address] [address] Sep, Impulse control disorder F63.9 ; Depress douglas disorder F32.9 and Mild intellectual disabilities F70 [facility] [address] [address] Sep, Seasonal allergic rhinitis due to pollen J30.1 [facility] [address] [address] Sep, [facility] [address] [address] Sep, [facility] [address] [address] Sep, Impulse control disorder F63.9 ; Depress douglas disorder F32.9 and Mild intellectual disabilities F70 [facility] [address] [address] Aug, Impulse control disorder F63.9 ; Depress douglas disorder F32.9 and Mild intellectual disabilities F70 [facility] [address] [address] Aug, [facility] [address] [address] Aug, [facility] [address] [address] Jul, [facility] [address] [address] Jul, Impulse control disorder F63.9 ; Depress douglas disorder F32.9 and Mild intellectual disabilities F70 [facility] [address] [id number] Jul, Dental examination Z01.20 [facility] [address] [address] Jul, Impulse control disorder F63.9 ; Depress douglas disorder F32.9 and Mild intellectual disabilities F70 [facility] [address] [address] Jul, [facility] [address] [address] Jun, [facility] [address] [address] Jun, Impulse control disorder F63.9 ; Depress douglas disorder F32.9 and Mild intellectual disabilities F70 [facility] [address] [address] Jun, [facility] [address] [address] Jun, [facility] [address] [address] Jun, Impulse control disorder F63.9 ; Depress douglas disorder F32.9 and Mild intellectual disabilities F70 [facility] [address] [address] May, Impulse control disorder F63.9 ; Depress douglas disorder F32.9 and Mild intellectual disabilities F70 [facility] [address] [address] May, Annual physical exam Z00.00 ; Other fati sarah R53.83 ; Seizures R56.9 ; Mild intellectual disabilities F70 and Impulse control disorder F63.9 [facility] [address] [address] May, [facility] [address] [address] May, Impulse control disorder F63.9 ; Depress douglas disorder F32.9 and Mild intellectual disabilities F70 [facility] [address] [id number] 30 Apr, 2016 Encounter for dental examination Z01.20 [facility] [address] [address] Apr, Impulse control disorder F63.9 ; Depress douglas disorder F32.9 and Mild intellectual disabilities F70 [facility] [address] [address] Apr, [facility] [address] [address] Mar, Impulse control disorder F63.9 ; Depress douglas disorder F32.9 and Mild intellectual disabilities F70 [facility] [address] [address] Mar, Impulse control disorder F63.9 ; Depress douglas disorder F32.9 and Mild intellectual disabilities F70 [facility] [address] [address] Mar, [facility] [address] [address] Mar, [facility] [address] [address] Feb, Impulse control disorder F63.9 ; Depress douglas disorder F32.9 and Mild intellectual disabilities F70 [facility] [address] [address] Feb, Impulse control disorder F63.9 ; Depress douglas disorder F32.9 and Mild intellectual disabilities F70 [facility] [address] [address] Feb, [facility] [address] [address] Jan, Annual physical exam Z00.00 ; Impulse co ntrol disorder F63.9 ; Mild intellectual disabilities F70 ; Depressive disorder F32.9 and Seizures R56.9 [facility] [address] [address] Jan, Impulse control disorder F63.9 ; Depress douglas disorder F32.9 and Mild intellectual disabilities F70 [facility] [address] [address] Jan, [facility] [address] [address] Jan, Impulse control disorder F63.9 ; Depress douglas disorder F32.9 and Mild intellectual disabilities F70 [facility] [address] [address] Jan, [facility] [address] [address] Jan, [facility] [address] [address] Dec, Impulse control disorder F63.9 ; Depress douglas disorder F32.9 and Mild intellectual disabilities F70 [facility] [address] [address] Dec, Impulse control disorder F63.9 ; Depress douglas disorder F32.9 and Mild intellectual disabilities F70 [facility] [address] [address] Dec, [facility] [address] [address] Dec, Depressive disorder F32.9 ; Impulse cont rol disorder F63.9 and Mild intellectual disabilities F70 [facility] [address] [address] Nov, [facility] [address] [address] Nov, Depressive disorder F32.9 ; Impulse cont rol disorder F63.9 and Mild intellectual disabilities F70 [facility] [address] [address] Nov, [facility] [address] [address] October, Depressive disorder F32.9 ; Impulse cont rol disorder F63.9 and Mild intellectual disabilities F70 [facility] [address] [address] October, [facility] [address] [address] October, [facility] [address] [address] October, Depressive disorder F32.9 ; Impulse cont rol disorder F63.9 and Mild intellectual disabilities F70 [facility] [address] [address] October, [facility] [address] [address] Sep, [facility] [address] [address] Sep, Depressive disorder F32.9 ; Impulse cont rol disorder F63.9 and Mild intellectual disabilities F70 [facility] [address] [address] Sep, Depressive disorder F32.9 ; Impulse cont rol disorder F63.9 and Mild intellectual disabilities F70 [facility] [address] [place] [id number] Sep, [facility] [address] [address] Aug, [facility] [address] [place] [id number] Aug, Depressive disorder F32.9 ; Impulse cont rol disorder F63.9 and Mild intellectual disabilities F70 [facility] [address] [address] Aug, Depressive disorder F32.9 ; Impulse cont rol disorder F63.9 and Mild intellectual disabilities F70 [facility] [address] [id number] Jul, Dental examination Z01.20 [facility] [address] [address] Jul, [facility] [address] [address] Jul, Depressive disorder F32.9 ; Impulse cont rol disorder F63.9 and Mild intellectual disabilities F70 [facility] [address] [address] 05 Jul, 2015 Depressive disorder F32.9 ; Impulse cont rol disorder F63.9 and Mild intellectual disabilities F70 [facility] [address] [address] Jul, Depression screening Z13.89 ; Drug juliae wm, 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 and Screening for STD sexually transmitted disease Z11.3 [facility] [address] [address] Jun, [facility] [address] [address] Jun, Depressive disorder F32.9 ; Impulse cont rol disorder F63.9 and Mild intellectual disabilities F70 [facility] [address] [address] Jun, Depressive disorder, not elsewhere class ified F32.9 ; Mild mental retardation F70 and Impulse control disorder F63.9 [facility] [address] [address] Jun, Depressive disorder, not elsewhere class ified F32.9 ; Impulse control disorder F63.9 and Mild intellectual disabilities F70 [facility] [address] [address] Jun, [facility] [address] [id number] Jun, Dental examination Z01.20 [facility] [address] [address] 17 May, 2015 Depressive disorder, not elsewhere class ified F32.9 ; Impulse control disorder F63.9 and Mild intellectual disabilities F70 [facility] [address] [address] May, [facility] [address] [address] May, [facility] [address] [address] May, Depressive disorder, not elsewhere class ified F32.9 ; Impulse control disorder F63.9 and Mild intellectual disabilities F70 [facility] [address] [address] May, Depressive disorder, not elsewhere class ified F32.9 ; Impulse control disorder F63.9 and Mild mental retardation F70 [facility] [address] [address] Apr, Depressive disorder, not elsewhere class ified F32.9 ; Impulse control disorder F63.9 and Mild intellectual disabilities F70 [facility] [address] [address] Apr, [facility] [address] [address] Mar, Depressive disorder, not elsewhere class ified F32.9 ; Impulse control disorder F63.9 and Mild intellectual disabilities F70 [facility] [address] [address] Mar, Depressive disorder, not elsewhere class ified F32.9 ; Impulse control disorder F63.9 and Mild intellectual disabilities F70 [place] [address] [address] Mar, [place] [address] [address] Mar, Encounter for immunization Z23 [place] [address] [address] Mar, Depressive disorder, not elsewhere class ified F32.9 ; Impulse control disorder F63.9 and Mild intellectual disabilities F70 [place] [address] [address] Feb, Depressive disorder, not elsewhere class ified 311 ; Impulse control disorder, unspecified 312.30 and Mild mental retardation 317 [place] [address] [address] Feb, [place] [address] [address] Feb, Depressive disorder, not elsewhere class ified 311 ; Impulse control disorder, unspecified 312.30 and Mild mental retardation [address] [place] [address] [address] Jan, Depressive disorder, not elsewhere class ified 311 ; Impulse control disorder, unspecified 312.30 and Mild mental retardation [address] [place] [address] [address] Jan, Depressive disorder, not elsewhere class ified 311 ; Impulse control disorder, unspecified 312.30 and Mild mental retardation [address] [place] [address] [address] Jan, [facility] [address] [id number] [place] [address] Jan, Depressive disorder, not elsewhere class ified 311 ; Impulse control disorder, unspecified 312.30 and Mild mental retardation 317 [facility] [address] [place] [id number] [place] [address] Dec, Depressive disorder, not elsewhere class ified 311 ; Impulse control disorder, unspecified 312.30 and Mild mental retardation 317 [facility] [address] [address] [id number] [place] [address] Dec, [facility] [address] [id number] [place] [id number] Dec, Dental examination V72.2 [facility] [address] [place] [id number] [place] [address] Dec, Heat rash 705.1 ; Seizures 780.39 and Hi gh risk medication use V58.69 [facility] [address] [place] [id number] [place] [address] Dec, [facility] [address] [address] Dec, Depressive disorder, not elsewhere class ified 311 ; Impulse control disorder, unspecified 312.30 and Mild mental retardation 317 [facility] [address] [place] [id number] [place] [address] Nov, Depressive disorder, not elsewhere class ified 311 ; Impulse control disorder, unspecified 312.30 and Mild mental retardation 317 [facility] [address] [place] [id number] [place] [address] Nov, [facility] [address] [address] Nov, Nicotine addiction 305.1 [facility] [address] [place] [id number] [place] [address] Nov, [facility] [address] [address] Nov, High risk medication use V58.69 [facility] [address] [place] [id number] [place] [address] 10 Nov, 2014 High risk medication use V58.69 [facility] [address] [address] Nov, Depressive disorder, not elsewhere class ified 311 ; Impulse control disorder, unspecified 312.30 and Mild mental retardation 317 [facility] [address] [address] Nov, Depressive disorder, not elsewhere class ified 311 ; 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 and Impulse control disorder, unspecified 312.30 [facility] [address] [address] October, Depressive disorder, not elsewhere class ified 311 ; Impulse control disorder, unspecified 312.30 and Mild mental retardation 317 [facility] [address] [address] October, [facility] [address] [address] October, Depressive disorder, not elsewhere class ified 311 ; Impulse control disorder, unspecified 312.30 and Mild mental retardation 317 [facility] [address] [address] October, [facility] [address] [id number] [place] [id number] October, Dental examination V72.2 [facility] [id number] [place] [address] Sep, Depressive disorder, not elsewhere class ified 311 ; Impulse control disorder 312.30 and Mild mental retardation 317 [facility] [address] [address] Sep, [facility] [address] [address] Sep, [facility] [address] [address] Aug, [facility] [address] [id number] [place] [address] 26 Aug, 2014 [facility] [address] [facility] [id number] [place] [address] Aug, [facility] [address] [id number] [place] [address] Aug, 2014 [facility] [address] [id number] [place] [address] 16 Aug, 2014 [facility] [address] [id number] [place] [address] 16 Aug, 2014 [facility] [address] [id number] [place] [address] Aug, [facility] [address] [id number] [place] [address] Aug, 2014 [facility] [address] [id number] [place] [address] Jul, 2014 [facility] [address] [facility] [id number] [place] [address] Jul, 2014 [facility] [address] [id number] [place] [address] Jul, 2014 [facility] [address] [id number] [place] [address] Jul, 2014 [facility] [address] [id number] [place] [address] 16 Jul, 2014 [facility] [address] [id number] [place] [address] 16 Jul, 2014 [facility] [address] [id number] [place] [address] 16 Jul, 2014 [facility] [address] [id number] [place] [address] 16 Jul, 2014 [facility] [address] [id number] [place] [address] 11 Jul, 2014 [facility] [address] [id number] [place] [address] Jul, [facility] [address] [facility] [id number] [place] [address] Jul, [facility] [address] [id number] [place] [address] Jul, [facility] [address] [id number] [place] [address] Jul, [facility] [address] [id number] [place] [address] Jul, [facility] [address] [id number] [place] [address] Jun, [facility] [address] [id number] [place] [address] Jun, [facility] [address] [id number] [place] [address] Jun, [facility] [address] [id number] [place] [address] Jun, [facility] [address] [id number] [place] [address] Jun, [facility] [address] [id number] [place] [address] Jun, [facility] [address] [id number] [place] [address] Jun, [facility] [address] [id number] [place] [address] Jun, [facility] [address] [id number] [place] [address] Jun, [facility] [address] [id number] [place] [address] Jun, [facility] [address] [id number] [place] [address] Jun, [facility] [address] [id number] [place] [address] Jun, [facility] [address] [id number] [place] [address] 08 Jun, 2014 [facility] [address] [id number] [place] [address] Jun, [facility] [address] [id number] [place] [address] Jun, [facility] [address] [id number] [place] [address] Jun, [facility] [address] [id number] [place] [address] Jun, [facility] [address] [id number] [place] [address] Jun, [facility] [address] [id number] [place] [address] Jun, [facility] [address] [id number] [place] [address] Jun, [facility] [address] [id number] [place] [address] May, [facility] [address] [id number] [place] [address] May, [facility] [address] [id number] [place] [address] May, [facility] [address] [id number] [place] [address] May, [facility] [address] [id number] [place] [address] May, [facility] [address] [id number] [place] [address] Apr, [facility] [id number] [place] [address] Apr, [facility] [address] [id number] [place] [address] Apr, [facility] [address] [id number] [place] [address] Apr, [facility] [address] [facility] [id number] [place] [address] Apr, [facility] [address] [facility] [id number] [place] [address] Apr, [facility] [address] [id number] [place] [address] Apr, [facility] [address] [id number] [place] [address] Apr, [facility] [address] [facility] [id number] [place] [address] Mar, [facility] [address] [id number] [place] [address] Mar, [facility] [address] [id number] [place] [address] Mar, [facility] [address] [id number] [place] [address] Mar, [facility] [address] [id number] [place] [address] Mar, [facility] [address] [id number] [place] [address] Mar, [facility] [address] [id number] [place] [address] Mar, [facility] [address] [id number] [place] [address] Mar, [facility] [address] [facility] [id number] [place] [address] Mar, [facility] [address] [facility] [id number] [place] [address] Mar, [facility] [address] [id number] [place] [address] Mar, [facility] [address] [id number] [place] [address] Mar, [facility] [address] [id number] [place] [address] 15 Mar, 2014 [facility] [address] [id number] [place] [address] Mar, [facility] [address] [id number] [place] [address] Mar, [facility] [address] [id number] [place] [address] Mar, [facility] [address] [id number] [place] [address] Mar, [facility] [address] [id number] [place] [address] Mar, [facility] [address] [id number] [place] [address] Mar, [facility] [address] [id number] [place] [address] Mar, [facility] [address] [id number] [place] [address] 24 Feb, 2013 [facility] [address] [id number] [place] [address] 24 Feb, 2013 [facility] [address] [id number] [place] [address] Feb, 2013 [facility] [address] [id number] [place] [address] Feb, 2013 [facility] [address] [id number] [place] [address] Feb, 2013 [facility] [address] [id number] [place] [address] 11 Feb, 2013 [facility] [address] [id number] [place] [address] 05 Feb, 2013 [facility] [address] [id number] [place] [address] 05 Feb, 2013 [facility] [address] [id number] [place] [address] Jan, [facility] [address] [id number] [place] [address] Jan, [facility] [address] [facility] [id number] [place] [address] Jan, [facility] [address] [id number] [place] [address] Jan, [facility] [address] [id number] [place] [address] Dec, [facility] [address] [facility] [id number] [place] [address] Dec, [facility] [address] [facility] [id number] [place] [address] Dec, [facility] [address] [id number] [place] [address] Dec, [facility] [address] [id number] [place] [address] Dec, [facility] [address] [id number] [place] [address] Dec, [facility] [address] [id number] [place] [address] Dec, [facility] [address] [id number] [place] [address] Dec, [facility] [address] [id number] [place] [address] Dec, [facility] [address] [id number] [place] [address] Dec, [facility] [address] [facility] [id number] [place] [address] Nov, [facility] [address] [id number] [place] [address] Nov, [facility] [address] [id number] [place] [address] Nov, [facility] [address] [id number] [place] [address] Nov, [facility] [address] [facility] [id number] [facility] [address] Nov, [facility] [address] [facility] [id number] [facility] [place] [address] Nov, [facility] [address] [facility] [id number] [place] [address] Nov, [facility] [address] [facility] [id number] [facility] [place] [address] Nov, [facility] [address] [facility] [id number] [facility] [place] [address] Nov, [facility] [address] [facility] [id number] [place] [address] Nov, [facility] [address] [id number] [place] [address] Nov, [facility] [address] [id number] [place] [address] Nov, [facility] [address] [facility] [id number] [place] [address] October, [facility] [address] [id number] [place] [address] October, [facility] [address] [facility] [id number] [place] [address] October, [facility] [address] [id number] [place] [address] October, [facility] [address] [facility] [id number] [place] [address] October, [facility] [address] [facility] [id number] [place] [address] October, [facility] [address] [facility] [id number] [place] [address] October, [facility] [address] [id number] [place] [address] October, [facility] [address] [id number] [facility] [place] [address] October, [facility] [address] [id number] [place] [address] October, [facility] [address] [id number] [place] [address] Sep, [facility] [address] [id number] [place] [address] Sep, [facility] [address] [id number] [place] [address] Sep, [facility] [address] [id number] [place] [address] Sep, [facility] [address] [id number] [place] [address] Sep, [facility] [address] [id number] [place] [address] Sep, [facility] [address] [id number] [place] [address] Sep, [facility] [address] [id number] [place] [address] Sep, [facility] [address] [id number] [place] [address] Aug, [facility] [address] [id number] [place] [address] Aug, [facility] [address] [id number] [place] [address] Aug, [facility] [address] [id number] [place] [address] Aug, [facility] [address] [id number] [place] [address] Aug, [facility] [address] [id number] [place] [address] Aug, [facility] [address] [id number] [place] [address] Aug, [facility] [address] [id number] [place] [address] Aug, [facility] [address] [id number] [place] [address] Jul, [facility] [address] [id number] [place] [address] Jul, [facility] [address] [id number] [place] [address] Jul, [facility] [address] [id number] [place] [address] Jul, [facility] [address] [id number] [place] [address] Jul, [facility] [address] [id number] [place] [address] Jul, [facility] [address] [id number] [place] [address] Jul, [facility] [address] [id number] [place] [address] Jul, [facility] [address] [id number] [place] [address] Jun, [facility] [address] [id number] [place] [address] Jun, [facility] [address] [id number] [place] [address] Jun, [facility] [address] [id number] [place] [address] Jun, [facility] [address] [id number] [place] [address] Jun, [facility] [address] [id number] [place] [address] Jun, [facility] [address] [id number] [place] [address] Jun, [facility] [address] [id number] [place] [address] Jun, [facility] [address] [id number] [place] [address] May, [facility] [address] [id number] [place] [address] May, [facility] [address] [id number] [place] [address] May, [facility] [address] [facility] [id number] [place] [address] May, [facility] [address] [facility] [id number] [place] [address] May, [facility] [address] [facility] [id number] [place] [address] May, [facility] [address] [facility] [id number] [place] [address] Apr, [facility] [address] [facility] [id number] [place] [address] Apr, [facility] [address] [facility] [id number] [place] [address] Mar, [facility] [address] [id number] [place] [address] Mar, [facility] [address] [facility] [id number] [place] [address] Mar, [facility] [address] [facility] [id number] [place] [address] Mar, [facility] [address] [facility] [id number] [place] [address] Mar, [facility] [address] [id number] [place] [address] Feb, [facility] [address] [id number] [place] [address] Jan, [facility] [address] [id number] [place] [address] Jan, [facility] [address] [id number] [place] [address] Jan, [facility] [address] [id number] [place] [address] Jan, [facility] [address] [id number] [place] [address] Jan, [facility] [address] [id number] [place] [address] Dec, [facility] [address] [id number] [place] [address] Dec, [facility] [address] [id number] [place] [address] Dec, [facility] [address] [id number] [place] [address] Dec, [facility] [address] [id number] [place] [address] Nov, [facility] [address] [id number] [place] [address] Nov, [facility] [address] [id number] [place] [address] Nov, [facility] [address] [id number] [place] [address] October, [facility] [address] [id number] [place] [address] October, [facility] [address] [id number] [place] [address] October, [facility] [address] [id number] [place] [address] Sep, [facility] [address] [id number] [place] [address] Sep, [facility] [address] [id number] [place] [address] Aug, [facility] [address] [id number] [place] [address] Aug, [facility] [address] [id number] [place] [address] Jul, [facility] [address] [id number] [place] [address] Jul, [facility] [address] [id number] [place] [address] Jul, [facility] [address] [id number] [place] [address] Jul, [facility] [address] [id number] [place] [address] Jul, [facility] [address] [id number] [place] [address] Jun, [facility] [address] [id number] [place] [address] May, [facility] [address] [id number] [place] [address] 31 May, 2012 [facility] [address] [facility] [id number] [place] [address] May, [facility] [address] [id number] [place] [address] 14 May, 2012 [facility] [address] [id number] [place] [address] May, [facility] [address] [id number] [place] [address] May, [facility] [address] [id number] [place] [address] May, [facility] [address] [id number] [place] [address] May, [facility] [address] [id number] [place] [address] Apr, [facility] [address] [id number] [place] [address] Apr, [facility] [address] [id number] [place] [address] Apr, [facility] [address] [id number] [place] [address] Apr, [facility] [address] [id number] [place] [address] Mar, [facility] [address] [id number] [place] [address] Mar, [facility] [address] [id number] [place] [address] Mar, [facility] [address] [id number] [place] [address] Feb, [facility] [address] [id number] [place] [address] Feb, [facility] [address] [id number] [place] [address] Jan, [facility] [address] [id number] [place] [address] Jan, [facility] [id number] [place] [address] Jan, [facility] [id number] [place] [address] Dec, [facility] [id number] [place] [address] Dec, [facility] [id number] [place] [address] Dec, [facility] [id number] [place] [address] Dec, [facility] [id number] [place] [address] Nov, [facility] [id number] [place] [address] Nov, [facility] [id number] [place] [address] Nov, [facility] [id number] [place] [address] October, [facility] [id number] [place] [address] October, [facility] [id number] [place] [address] October, [facility] [id number] [place] [address] Sep, [facility] [id number] [place] [address] Sep, [facility] [id number] [place] [address] Sep, [facility] [id number] [place] [address] Aug, [facility] [id number] [place] [address] Aug, [facility] [id number] [place] [address] Aug, [facility] [id number] [place] [address] Jul, [facility] [id number] [place] [address] Jun, [facility] [id number] [place] [address] Jun, [facility] [id number] [place] [address] May, [facility] [id number] [place] [address] May, [facility] [id number] [place] [address] May, [facility] [id number] [place] [address] May, [facility] [id number] [place] [address] Apr, [facility] [id number] [place] [address] Apr, [facility] [id number] [place] [address] Apr, [facility] [id number] [place] [address] Apr, [facility] [id number] [place] [address] Apr, [facility] [id number] [place] [address] Mar, [facility] [id number] [place] [address] Mar, [facility] [id number] [place] [address] Jan, [facility] [id number] [place] [address] May, [facility] [id number] [place] [address] Apr, [facility] [id number] [place] [address] Mar, [facility] [id number] [place] [address] Jun, [facility] [id number] [place] [address] Apr, [facility] [id number] [place] [address] Apr, IMMUNIZATIONS No Known Immunizations SOCIAL HISTORY Never Assessed REASON FOR VISIT PLAN OF CARE VITAL SIGNS MEDICATIONS Unknown Medications RESULTS No Results PROCEDURES No Known procedures INSTRUCTIONS MEDICATIONS ADMINISTERED No Known Medications MEDICAL (GENERAL) HISTORY Type Description Date Medical History seizures Surgical History No Surgical history information
--- OUTSIDE RECORDS SUMMARY | 2019-09-07 02:57 | XMS REPORT ---
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 Activ e [id number] Problem Impulse control disorder F63.9 Activ e [id number] Problem Depressive disorder F32.9 Active 21611144 Problem Mild intellectual disabilities F70 Active 76555993 Problem Seasonal allergic rhinitis due to pollen J30.1 Active [id number] ALLERGIES No Information ENCOUNTERS Encounter Location Date Diagnosis [place] [id number] [address] May, [facility] [address] [address] Apr, [place] [address] [address] Apr, Depressive disorder F32.9 ; Impulse cont rol disorder F63.9 and Mild intellectual disabilities F70 [place] [address] [address] Apr, [facility] [address] [address] Apr, [facility] [address] [address] 14 Apr, 2019 [facility] [address] [address] Apr, Impulse control disorder F63.9 ; Depress douglas disorder F32.9 and Mild intellectual disabilities F70 [place] [id number] [place] [address] Mar, [facility] [address] [place] [address] [id number] [place] [address] Mar, [facility] [address] [address] Mar, Encounter for immunization Z23 [facility] [address] [place] [address] [id number] [place] [address] Dec, [facility] [address] [address] Dec, Seasonal allergic rhinitis due to pollen J30.1 [facility] [address] [address] October, Depressive disorder F32.9 ; Impulse cont rol disorder F63.9 and Mild intellectual disabilities F70 [facility] [address] [address] Jun, Impulse control disorder F63.9 ; Mild in tellectual disabilities F70 ; Relationship dysfunction 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.9 and Depressive disorder F32.9 [facility] [address] [place] [id number] [place] [address] Jun, [facility] [address] [address] May, [facility] [address] [place] [id number] [place] [address] May, [facility] [address] [address] May, Encounter for immunization Z23 [facility] [address] [place] [id number] [place] [address] Apr, [facility] [address] [address] Apr, [facility] [address] [address] Mar, [facility] [address] [address] Mar, [facility] [address] [address] 26 Feb, 2018 Annual physical exam Z00.00 [facility] [address] [address] 25 Feb, 2018 Annual physical exam Z00.00 ; Mild intel lectual disabilities F70 and Encounter for immunization Z23 [facility] [address] [address] 11 Feb, 2018 [facility] [address] [address] Jan, [facility] [address] [address] Jan, Impulse control disorder F63.9 ; Mild in tellectual disabilities F70 and Depressive disorder F32.9 [facility] [address] [address] Nov, [facility] [address] [address] Nov, [facility] [address] [address] Nov, [facility] [address] [address] Nov, [facility] [address] [address] Nov, [facility] [address] [address] 05 Nov, 2017 Impulse control disorder F63.9 ; Depress douglas disorder F32.9 and Mild intellectual disabilities F70 [facility] [address] [address] October, [facility] [address] [address] October, Impulse control disorder F63.9 ; Depress douglas disorder F32.9 and Mild intellectual disabilities F70 [facility] [address] [address] Sep, [facility] [address] [place] [address] Sep, Impulse control disorder F63.9 ; Depress douglas disorder F32.9 and Mild intellectual disabilities F70 [facility] [address] [address] Sep, Impulse control disorder F63.9 ; Depress douglas disorder F32.9 and Mild intellectual disabilities F70 [facility] [address] [address] Aug, [facility] [address] [address] Aug, Impulse control disorder F63.9 ; Depress douglas disorder F32.9 and Mild intellectual disabilities F70 [facility] [address] [id number] Aug, Dental examination Z01.20 [facility] [address] [address] Aug, [facility] [address] [address] Aug, Impulse control disorder F63.9 ; Depress douglas disorder F32.9 and Mild intellectual disabilities F70 [facility] [address] [address] Jul, Impulse control disorder F63.9 ; Depress douglas disorder F32.9 and Mild intellectual disabilities F70 [facility] [address] [id number] Jul, Dental examination Z01.20 [facility] [address] [address] Jul, [facility] [address] [address] Jun, Impulse control disorder F63.9 ; Depress douglas disorder F32.9 and Mild intellectual disabilities F70 [facility] [address] [address] 08 Jun, 2017 Impulse control disorder F63.9 ; Depress douglas disorder F32.9 and Mild intellectual disabilities F70 [facility] [address] [address] 08 Jun, 2017 [facility] [address] [address] May, [facility] [address] [place] [id number] May, Impulse control disorder F63.9 ; Depress douglas disorder F32.9 and Mild intellectual disabilities F70 [facility] [address] [address] Apr, Impulse control disorder F63.9 ; Depress douglas disorder F32.9 and Mild intellectual disabilities F70 [facility] [address] [address] Apr, Seizures R56.9 [facility] [address] [address] Apr, [facility] [address] [address] Apr, Seizures R56.9 ; Tobacco abuse Z72.0 ; A lcohol abuse F10.10 and Encounter for immunization Z23 [facility] [address] [address] Apr, Impulse control disorder F63.9 ; Depress douglas disorder F32.9 and Mild intellectual disabilities F70 [facility] [address] [address] Mar, Impulse control disorder F63.9 ; Depress douglas disorder F32.9 and Mild intellectual disabilities F70 [facility] [address] [address] Mar, [facility] [address] [address] Mar, Impulse control disorder F63.9 ; Depress douglas disorder F32.9 and Mild intellectual disabilities F70 [facility] [address] [address] Mar, [facility] [address] [address] Feb, Impulse control disorder F63.9 ; Depress douglas disorder F32.9 and Mild intellectual disabilities F70 [facility] [address] [address] Feb, [facility] [address] [address] Feb, Impulse control disorder F63.9 ; Depress douglas disorder F32.9 and Mild intellectual disabilities F70 [facility] [address] [address] Jan, Annual physical exam Z00.00 ; Right hand pain M79.641 ; Impulse control disorder F63.9 ; Mild intellectual disabilities F70 and Depressive disorder F32.9 [facility] [address] [address] Jan, Impulse control disorder F63.9 ; Depress douglas disorder F32.9 and Mild intellectual disabilities F70 [facility] [address] [address] Jan, [facility] [address] [address] Jan, Impulse control disorder F63.9 ; Depress douglas disorder F32.9 and Mild intellectual disabilities F70 [facility] [address] [address] Jan, Impulse control disorder F63.9 ; Depress douglas disorder F32.9 and Mild intellectual disabilities F70 [facility] [address] [address] Dec, [facility] [address] [address] Dec, Impulse control disorder F63.9 ; Depress douglas disorder F32.9 and Mild intellectual disabilities F70 [facility] [address] [address] Nov, Impulse control disorder F63.9 ; Depress douglas disorder F32.9 and Mild intellectual disabilities F70 [facility] [address] [address] Nov, [facility] [address] [address] Nov, [facility] [address] [address] Nov, [facility] [address] [address] October, Impulse control disorder F63.9 ; Depress douglas disorder F32.9 and Mild intellectual disabilities F70 [facility] [address] [address] October, [facility] [address] [address] October, Impulse control disorder F63.9 ; Depress douglas disorder F32.9 and Mild intellectual disabilities F70 [facility] [address] [address] Sep, [facility] [address] [address] Sep, Impulse control disorder F63.9 ; Depress douglas disorder F32.9 and Mild intellectual disabilities F70 [facility] [address] [address] Sep, Seasonal allergic rhinitis due to pollen J30.1 [facility] [address] [address] Sep, [facility] [address] [address] Sep, [facility] [address] [address] Sep, Impulse control disorder F63.9 ; Depress douglas disorder F32.9 and Mild intellectual disabilities F70 [facility] [address] [address] Aug, Impulse control disorder F63.9 ; Depress douglas disorder F32.9 and Mild intellectual disabilities F70 [facility] [address] [place] [id number] [place] [address] Aug, [facility] [address] [address] Aug, [facility] [address] [address] Jul, [facility] [address] [address] Jul, Impulse control disorder F63.9 ; Depress douglas disorder F32.9 and Mild intellectual disabilities F70 [facility] [address] [place] [id number] [place] [id number] Jul, Dental examination Z01.20 [facility] [address] [address] Jul, Impulse control disorder F63.9 ; Depress douglas disorder F32.9 and Mild intellectual disabilities F70 [facility] [address] [place] [address] [place] [address] Jul, [facility] [address] [address] Jun, [facility] [address] [address] Jun, Impulse control disorder F63.9 ; Depress douglas disorder F32.9 and Mild intellectual disabilities F70 [facility] [address] [place] [address] [place] [address] Jun, [facility] [address] [place] [address] [place] [address] Jun, [facility] [address] [address] Jun, Impulse control disorder F63.9 ; Depress douglas disorder F32.9 and Mild intellectual disabilities F70 [facility] [address] [address] May, Impulse control disorder F63.9 ; Depress douglas disorder F32.9 and Mild intellectual disabilities F70 [facility] [address] [address] May, Annual physical exam Z00.00 ; Other fati sarah R53.83 ; Seizures R56.9 ; Mild intellectual disabilities F70 and Impulse control disorder F63.9 [facility] [address] [address] May, [facility] [address] [address] May, Impulse control disorder F63.9 ; Depress douglas disorder F32.9 and Mild intellectual disabilities F70 [facility] [address] [id number] Apr, 2016 Encounter for dental examination Z01.20 [facility] [address] [address] Apr, Impulse control disorder F63.9 ; Depress douglas disorder F32.9 and Mild intellectual disabilities F70 [facility] [address] [address] Apr, [facility] [address] [address] Mar, Impulse control disorder F63.9 ; Depress doulgas disorder F32.9 and Mild intellectual disabilities F70 [facility] [address] [address] Mar, Impulse control disorder F63.9 ; Depress douglas disorder F32.9 and Mild intellectual disabilities F70 [facility] [address] [address] Mar, [facility] [address] [address] Mar, [facility] [address] [address] Feb, Impulse control disorder F63.9 ; Depress douglas disorder F32.9 and Mild intellectual disabilities F70 [facility] [address] [address] Feb, Impulse control disorder F63.9 ; Depress douglas disorder F32.9 and Mild intellectual disabilities F70 [facility] [address] [address] Feb, [facility] [address] [address] Jan, Annual physical exam Z00.00 ; Impulse co ntrol disorder F63.9 ; Mild intellectual disabilities F70 ; Depressive disorder F32.9 and Seizures R56.9 [facility] [address] [address] Jan, Impulse control disorder F63.9 ; Depress douglas disorder F32.9 and Mild intellectual disabilities F70 [facility] [address] [address] Jan, [facility] [address] [address] Jan, Impulse control disorder F63.9 ; Depress douglas disorder F32.9 and Mild intellectual disabilities F70 [facility] [address] [address] Jan, [facility] [address] [address] Jan, [facility] [address] [address] Dec, Impulse control disorder F63.9 ; Depress douglas disorder F32.9 and Mild intellectual disabilities F70 [facility] [address] [address] Dec, Impulse control disorder F63.9 ; Depress douglas disorder F32.9 and Mild intellectual disabilities F70 [facility] [address] [address] Dec, [facility] [address] [address] Dec, Depressive disorder F32.9 ; Impulse cont rol disorder F63.9 and Mild intellectual disabilities F70 [facility] [address] [address] Nov, [facility] [address] [address] Nov, Depressive disorder F32.9 ; Impulse cont rol disorder F63.9 and Mild intellectual disabilities F70 [facility] [address] [address] Nov, [facility] [address] [address] October, Depressive disorder F32.9 ; Impulse cont rol disorder F63.9 and Mild intellectual disabilities F70 [facility] [address] [address] October, [facility] [address] [address] October, [facility] [address] [address] October, Depressive disorder F32.9 ; Impulse cont rol disorder F63.9 and Mild intellectual disabilities F70 [facility] [address] [address] October, [facility] [address] [address] Sep, [facility] [address] [address] Sep, Depressive disorder F32.9 ; Impulse cont rol disorder F63.9 and Mild intellectual disabilities F70 [facility] [address] [address] Sep, Depressive disorder F32.9 ; Impulse cont rol disorder F63.9 and Mild intellectual disabilities F70 [facility] [address] [address] Sep, [facility] [address] [address] Aug, [facility] [address] [address] Aug, Depressive disorder F32.9 ; Impulse cont rol disorder F63.9 and Mild intellectual disabilities F70 [facility] [address] [address] Aug, Depressive disorder F32.9 ; Impulse cont rol disorder F63.9 and Mild intellectual disabilities F70 [facility] [address] [id number] Jul, Dental examination Z01.20 [facility] [address] [address] Jul, [facility] [address] [address] Jul, Depressive disorder F32.9 ; Impulse cont rol disorder F63.9 and Mild intellectual disabilities F70 [facility] [address] [address] 05 Jul, 2015 Depressive disorder F32.9 ; Impulse cont rol disorder F63.9 and Mild intellectual disabilities F70 [facility] [address] [address] Jul, Depression screening Z13.89 ; 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, 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 and Screening for STD sexually transmitted disease Z11.3 [facility] [address] [address] Jun, [facility] [address] [address] Jun, Depressive disorder F32.9 ; Impulse cont rol disorder F63.9 and Mild intellectual disabilities F70 [facility] [address] [address] Jun, Depressive disorder, not elsewhere class ified F32.9 ; Mild mental retardation F70 and Impulse control disorder F63.9 [facility] [address] [address] Jun, Depressive disorder, not elsewhere class ified F32.9 ; Impulse control disorder F63.9 and Mild intellectual disabilities F70 [facility] [address] [address] Jun, [facility] [address] [id number] Jun, Dental examination Z01.20 [facility] [address] [address] 17 May, 2015 Depressive disorder, not elsewhere class ified F32.9 ; Impulse control disorder F63.9 and Mild intellectual disabilities F70 [facility] [address] [address] May, [facility] [address] [address] May, [facility] [address] [address] May, Depressive disorder, not elsewhere class ified F32.9 ; Impulse control disorder F63.9 and Mild intellectual disabilities F70 [facility] [address] [address] May, Depressive disorder, not elsewhere class ified F32.9 ; Impulse control disorder F63.9 and Mild mental retardation F70 [facility] [address] [address] Apr, Depressive disorder, not elsewhere class ified F32.9 ; Impulse control disorder F63.9 and Mild intellectual disabilities F70 [facility] [address] [address] Apr, [facility] [address] [address] Mar, Depressive disorder, not elsewhere class ified F32.9 ; Impulse control disorder F63.9 and Mild intellectual disabilities F70 [facility] [address] [address] Mar, Depressive disorder, not elsewhere class ified F32.9 ; Impulse control disorder F63.9 and Mild intellectual disabilities F70 [facility] [address] [address] Mar, [place] [address] [address] Mar, Encounter for immunization Z23 [place] [address] [address] Mar, Depressive disorder, not elsewhere class ified F32.9 ; Impulse control disorder F63.9 and Mild intellectual disabilities F70 [place] [address] [address] Feb, Depressive disorder, not elsewhere class ified 311 ; Impulse control disorder, unspecified 312.30 and Mild mental retardation 317 [place] [address] [address] Feb, [facility] [address] [address] Feb, Depressive disorder, not elsewhere class ified 311 ; Impulse control disorder, unspecified 312.30 and Mild mental retardation 317 [facility] [address] [address] Jan, Depressive disorder, not elsewhere class ified 311 ; Impulse control disorder, unspecified 312.30 and Mild mental retardation 317 [facility] [address] [address] Jan, Depressive disorder, not elsewhere class ified 311 ; Impulse control disorder, unspecified 312.30 and Mild mental retardation 317 [place] [address] [address] Jan, [facility] [address] [address] Jan, Depressive disorder, not elsewhere class ified 311 ; Impulse control disorder, unspecified 312.30 and Mild mental retardation 317 [facility] [address] [place] [id number] [place] [address] Dec, Depressive disorder, not elsewhere class ified 311 ; Impulse control disorder, unspecified 312.30 and Mild mental retardation 317 [facility] [address] [place] [id number] [place], [place] [address] Dec, [facility] [address] [id number] [place] [id number] Dec, Dental examination V72.2 [facility] [id number] [place] [address] Dec, Heat rash 705.1 ; Seizures 780.39 and Hi gh risk medication use V58.69 [facility] [id number] [place] [address] Dec, [facility] [address] [address] Dec, Depressive disorder, not elsewhere class ified 311 ; Impulse control disorder, unspecified 312.30 and Mild mental retardation 317 [facility] [address] [id number] [place] [address] Nov, Depressive disorder, not elsewhere class ified 311 ; Impulse control disorder, unspecified 312.30 and Mild mental retardation 317 [facility] [id number] [place] [address] Nov, [facility] [address] [address] Nov, Nicotine addiction 305.1 [facility] [address] [id number] [place] [address] Nov, [facility] [address] [address] Nov, High risk medication use V58.69 [facility] [address] [id number] [place] [address] Nov, High risk medication use V58.69 [facility] [address] [address] Nov, Depressive disorder, not elsewhere class ified 311 ; Impulse control disorder, unspecified 312.30 and Mild mental retardation 317 [facility] [address] [address] Nov, Depressive disorder, not elsewhere class ified 311 ; 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 and Impulse control disorder, unspecified 312.30 [facility] [address] [address] October, Depressive disorder, not elsewhere class ified 311 ; Impulse control disorder, unspecified 312.30 and Mild mental retardation 317 [facility] [address] [address] October, [facility] [address] [address] October, Depressive disorder, not elsewhere class ified 311 ; Impulse control disorder, unspecified 312.30 and Mild mental retardation 317 [facility] [id number] [place] [address] October, [facility] [address] [id number] [place] [id number] October, Dental examination V72.2 [facility] [id number] [place] [address] Sep, Depressive disorder, not elsewhere class ified 311 ; Impulse control disorder 312.30 and Mild mental retardation 317 [facility] [address] [address] Sep, [facility] [address] [address] Sep, [facility] [address] [address] Aug, [facility] [address] [id number] [place] [address] Aug, [facility] [address] [id number] [place] [address] Aug, [facility] [address] [id number] [place] [address] Aug, 2014 [facility] [address] [id number] [place] [address] 16 Aug, 2014 [facility] [address] [id number] [place] [address] 16 Aug, 2014 [facility] [address] [id number] [place] [address] Aug, [facility] [address] [id number] [place] [address] Aug, 2014 [facility] [address] [id number] [place] [address] Jul, 2014 [facility] [address] [id number] [place] [address] Jul, 2014 [facility] [address] [id number] [place] [address] Jul, 2014 [facility] [address] [id number] [place] [address] Jul, 2014 [facility] [address] [id number] [place] [address] 16 Jul, 2014 [facility] [address] [id number] [place] [address] 16 Jul, 2014 [facility] [address] [id number] [place] [address] 16 Jul, 2014 [facility] [address] [id number] [place] [address] 16 Jul, 2014 [facility] [address] [id number] [place] [address] 11 Jul, 2014 [facility] [address] [id number] [place] [address] Jul, [facility] [address] [facility] [id number] [place] [address] Jul, [facility] [address] [id number] [place] [address] Jul, [facility] [address] [id number] [place] [address] Jul, [facility] [address] [id number] [place] [address] Jul, [facility] [address] [id number] [place] [address] Jun, [facility] [address] [id number] [place] [address] Jun, [facility] [address] [id number] [place] [address] Jun, [facility] [address] [id number] [place] [address] Jun, [facility] [address] [id number] [place] [address] Jun, [facility] [address] [id number] [place] [address] Jun, [facility] [address] [id number] [place] [address] Jun, [facility] [address] [id number] [place] [address] Jun, [facility] [address] [id number] [place] [address] Jun, [facility] [address] [id number] [place] [address] Jun, [facility] [address] [id number] [place] [address] Jun, [facility] [address] [id number] [place] [address] Jun, [facility] [address] [id number] [place] [address] 08 Jun, 2014 [facility] [address] [id number] [place] [address] Jun, [facility] [address] [id number] [place] [address] Jun, [facility] [address] [id number] [place] [address] Jun, [facility] [address] [id number] [place] [address] Jun, [facility] [address] [id number] [place] [address] Jun, [facility] [address] [id number] [place] [address] Jun, [facility] [address] [id number] [place] [address] Jun, [facility] [address] [id number] [place] [address] May, [facility] [address] [id number] [place] [address] May, [facility] [address] [id number] [place] [address] May, [facility] [address] [id number] [place] [address] May, [facility] [address] [id number] [place] [address] May, [facility] [address] [id number] [place] [address] Apr, [facility] [address] [id number] [place] [address] Apr, [facility] [address] [id number] [place] [address] Apr, [facility] [address] [id number] [place] [address] Apr, [facility] [address] [facility] [id number] [place] [address] Apr, [facility] [address] [facility] [id number] [place] [address] Apr, [facility] [address] [id number] [place] [address] Apr, [facility] [address] [facility] [id number] [place] [address] Apr, [facility] [address] [facility] [id number] [place] [address] Mar, [facility] [address] [id number] [place] [address] Mar, [facility] [address] [id number] [place] [address] Mar, [facility] [address] [id number] [place] [address] Mar, [facility] [address] [id number] [place] [address] Mar, [facility] [address] [id number] [place] [address] Mar, [facility] [address] [id number] [place] [address] Mar, [facility] [address] [id number] [place] [address] Mar, [facility] [address] [facility] [id number] [place] [address] Mar, [facility] [address] [facility] [id number] [place] [address] Mar, [facility] [address] [id number] [place] [address] Mar, [facility] [address] [id number] [place] [address] Mar, [facility] [address] [id number] [place] [address] 15 Mar, 2014 [facility] [address] [facility] [id number] [place] [address] Mar, [facility] [address] [id number] [place] [address] Mar, [facility] [address] [id number] [place] [address] Mar, [facility] [address] [id number] [place] [address] Mar, [facility] [address] [id number] [place] [address] Mar, [facility] [address] [id number] [place] [address] Mar, [facility] [address] [id number] [place] [address] Mar, [facility] [address] [id number] [place] [address] 24 Feb, 2013 [facility] [address] [id number] [place] [address] 24 Feb, 2013 [facility] [address] [id number] [place] [address] 19 Feb, 2013 [facility] [address] [id number] [place] [address] Feb, 2013 [facility] [address] [id number] [place] [address] 11 Feb, 2013 [facility] [address] [id number] [place] [address] 11 Feb, 2013 [facility] [address] [id number] [place] [address] 05 Feb, 2013 [facility] [address] [id number] [place] [address] 05 Feb, 2013 [facility] [address] [id number] [place] [address] Jan, [facility] [address] [id number] [place] [address] Jan, [facility] [address] [facility] [id number] [place] [address] Jan, [facility] [address] [facility] [id number] [place] [address] Jan, [facility] [address] [id number] [place] [address] Dec, [facility] [address] [facility] [id number] [place] [address] Dec, [facility] [address] [facility] [id number] [place] [address] Dec, [facility] [address] [id number] [place] [address] Dec, [facility] [address] [id number] [place] [address] Dec, [facility] [address] [id number] [place] [address] Dec, [facility] [address] [id number] [place] [address] Dec, [facility] [address] [id number] [place] [address] Dec, [facility] [address] [id number] [place] [address] Dec, [facility] [address] [id number] [place] [address] Dec, [facility] [address] [facility] [id number] [place] [address] Nov, [facility] [address] [id number] [place] [address] Nov, [facility] [address] [id number] [place] [address] Nov, [facility] [address] [id number] [place] [address] Nov, [facility] [address] [id number] [facility] [place] [address] Nov, [facility] [address] [facility] [id number] [facility] [place] [address] Nov, [facility] [address] [facility] [id number] [facility] [place] [address] Nov, [facility] [address] [id number] [facility] [place] [address] Nov, [facility] [address] [facility] [id number] [facility] [place] [address] Nov, [facility] [address] [facility] [id number] [place] [address] Nov, [facility] [address] [id number] [place] [address] Nov, [facility] [address] [id number] [place] [address] Nov, [facility] [address] [facility] [id number] [place] [address] October, [facility] [address] [id number] [place] [address] October, [facility] [address] [id number] [place] [address] October, [facility] [address] [id number] [place] [address] October, [facility] [address] [facility] [id number] [place] [address] October, [facility] [address] [id number] [place] [address] October, [facility] [address] [facility] [id number] [place] [address] October, [facility] [address] [id number] [place] [address] October, [facility] [address] [id number] [place] [address] October, [facility] [address] [facility] [id number] [place] [address] October, [facility] [address] [id number] [place] [address] Sep, [facility] [address] [id number] [place] [address] Sep, [facility] [address] [id number] [place] [address] Sep, [facility] [address] [id number] [place] [address] Sep, [facility] [address] [id number] [place] [address] Sep, [facility] [address] [id number] [place] [address] Sep, [facility] [address] [id number] [place] [address] Sep, [facility] [address] [id number] [place] [address] Sep, [facility] [address] [id number] [place] [address] Aug, [facility] [address] [id number] [place] [address] Aug, [facility] [address] [id number] [place] [address] Aug, [facility] [address] [id number] [place] [address] Aug, [facility] [address] [id number] [place] [address] Aug, [facility] [address] [id number] [place] [address] Aug, [facility] [address] [id number] [place] [address] Aug, [facility] [address] [facility] [id number] [place] [address] Aug, [facility] [address] [facility] [id number] [place] [address] Jul, [facility] [address] [facility] [id number] [place] [address] Jul, [facility] [address] [id number] [place] [address] Jul, [facility] [address] [facility] [id number] [place] [address] Jul, [facility] [address] [id number] [place] [address] Jul, [facility] [address] [id number] [place] [address] Jul, [facility] [address] [id number] [place] [address] Jul, [facility] [address] [id number] [place] [address] Jul, [facility] [address] [id number] [place] [address] Jun, [facility] [address] [id number] [place] [address] Jun, [facility] [address] [id number] [place] [address] Jun, [facility] [address] [id number] [place] [address] Jun, [facility] [address] [id number] [place] [address] Jun, [facility] [address] [id number] [place] [address] Jun, [facility] [address] [id number] [place] [address] Jun, [facility] [address] [id number] [place] [address] Jun, [facility] [address] [id number] [place] [address] May, [facility] [address] [id number] [place] [address] May, [facility] [address] [id number] [place] [address] May, [facility] [address] [id number] [place] [address] May, [facility] [address] [id number] [place] [address] May, [facility] [address] [id number] [place] [address] May, [facility] [address] [id number] [place] [address] Apr, [facility] [address] [id number] [place] [address] Apr, [facility] [address] [id number] [place] [address] Mar, [facility] [address] [id number] [place] [address] Mar, [facility] [address] [id number] [place] [address] Mar, [facility] [address] [id number] [place] [address] Mar, [facility] [address] [id number] [place] [address] Mar, [facility] [address] [id number] [place] [address] Feb, [facility] [address] [id number] [place] [address] Jan, [facility] [address] [id number] [place] [address] Jan, [facility] [address] [id number] [place] [address] Jan, [facility] [address] [id number] [place] [address] Jan, [facility] [address] [id number] [place] [address] Jan, [facility] [address] [id number] [place] [address] Dec, [facility] [address] [id number] [place] [address] Dec, [facility] [address] [id number] [place] [address] Dec, [facility] [address] [id number] [place] [address] Dec, [facility] [address] [id number] [place] [address] Nov, [facility] [address] [id number] [place] [address] Nov, [facility] [address] [id number] [place] [address] Nov, [facility] [address] [id number] [place] [address] October, [facility] [address] [id number] [place] [address] October, [facility] [address] [id number] [place] [address] October, [facility] [address] [id number] [place] [address] Sep, [facility] [address] [id number] [place] [address] Sep, [facility] [address] [id number] [place] [address] Aug, [facility] [address] [id number] [place] [address] Aug, [facility] [address] [id number] [place] [address] Jul, [facility] [address] [id number] [facility] [address] Jul, [facility] [address] [id number] [place] [address] Jul, [facility] [address] [id number] [place] [address] Jul, [facility] [address] [id number] [place] [place] [address] Jul, [facility] [address] [id number] [place] [address] Jun, [facility] [address] [id number] [place] [address] May, [facility] [address] [id number] [place] [address] 31 May, 2012 [facility] [address] [id number] [place] [address] 14 May, 2012 [facility] [address] [id number] [place] [address] 14 May, 2012 [facility] [address] [id number] [place] [address] May, [facility] [address] [id number] [place] [address] May, [facility] [address] [id number] [place] [address] 10 May, 2012 [facility] [address] [id number] [place] [address] May, [facility] [address] [id number] [place] [address] Apr, [facility] [address] [id number] [place] [address] Apr, [facility] [address] [id number] [place] [address] Apr, [facility] [address] [id number] [place] [address] Apr, [facility] [address] [id number] [place] [address] Mar, [facility] [address] [id number] [place] [address] Mar, [facility] [address] [id number] [place] [address] Mar, [facility] [address] [id number] [place] [address] Feb, [facility] [address] [id number] [place] [address] Feb, [facility] [address] [id number] [place] [address] Jan, [facility] [address] [id number] [place] [address] Jan, [facility] [address] [id number] [place] [address] Jan, [facility] [address] [id number] [place] [address] Dec, [facility] [address] [id number] [place] [address] Dec, [facility] [address] [id number] [place] [address] Dec, [facility] [address] [id number] [place] [address] Dec, [facility] [address] [id number] [place] [address] Nov, [facility] [address] [id number] [place] [address] Nov, [facility] [address] [id number] [place] [address] Nov, [facility] [address] [id number] [place] [address] October, [facility] [address] [id number] [place] [address] October, [facility] [address] [id number] [place] [address] October, [facility] [address] [id number] [place] [address] Sep, [facility] [address] [id number] [place] [address] Sep, [facility] [address] [id number] [place] [address] Sep, [facility] [address] [id number] [place] [address] Aug, [facility] [id number] [place] [address] Aug, [facility] [address] [id number] [place] [address] Aug, [facility] [address] [id number] [place] [address] Jul, [facility] [address] [id number] [place] [address] Jun, [facility] [address] [id number] [place] [address] Jun, [facility] [address] [id number] [place] [address] May, [facility] [address] [id number] [place] [address] May, [facility] [address] [id number] [place] [address] May, [facility] [address] [id number] [place] [address] May, [facility] [address] [id number] [place] [address] Apr, [facility] [address] [id number] [place] [address] Apr, [facility] [address] [id number] [place] [address] Apr, [facility] [address] [id number] [place] [address] Apr, [facility] [id number] [place] [address] Apr, [facility] [address] [id number] [place] [address] Mar, [facility] [id number] [place] [address] Mar, [facility] [id number] [place] [address] Jan, [facility] [id number] [place] [address] May, [facility] [id number] [place] [address] Apr, [facility] [id number] [place] [address] Mar, [facility] [address] [id number] [place] [address] Jun, [facility] [id number] [place] [address] Apr, [facility] [address] [id number] [place] [address] Apr, IMMUNIZATIONS No Known Immunizations SOCIAL HISTORY Never Assessed REASON FOR VISIT PLAN OF CARE VITAL SIGNS MEDICATIONS Unknown Medications RESULTS No Results PROCEDURES Procedure Date Ordered Result Body Site PSYTX PT&/FAMILY 45 MINUTES November 25, 2013 INSTRUCTIONS MEDICATIONS ADMINISTERED No Known Medications MEDICAL (GENERAL) HISTORY Type Description Date Medical History seizures Surgical History No Surgical history information
--- OUTSIDE RECORDS SUMMARY | 2019-09-07 02:57 | XMS REPORT ---
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 Activ e [id number] Problem Impulse control disorder F63.9 Activ e 50519962 Problem Depressive disorder F32.9 Active 96621087 Problem Mild intellectual disabilities F70 Active 82520743 Problem Seasonal allergic rhinitis due to pollen J30.1 Active 21608054 ALLERGIES No Information ENCOUNTERS Encounter Location Date Diagnosis [place] [id number] [address] May, [facility] [address] [address] Apr, [facility] [address] [address] Apr, Depressive disorder F32.9 ; Impulse cont rol disorder F63.9 and Mild intellectual disabilities F70 [facility] [address] [address] Apr, [facility] [address] [address] Apr, [facility] [address] [address] 14 Apr, 2019 [facility] [address] [address] Apr, Impulse control disorder F63.9 ; Depress douglas disorder F32.9 and Mild intellectual disabilities F70 [place] [address] [place] [address] Mar, [facility] [address] [id number] [place] [address] Mar, [facility] [address] [address] Mar, Encounter for immunization Z23 [facility] [id number] [place] [address] Dec, [facility] [address] [address] Dec, Seasonal allergic rhinitis due to pollen J30.1 [facility] [address] [address] October, Depressive disorder F32.9 ; Impulse cont rol disorder F63.9 and Mild intellectual disabilities F70 [facility] [address] [address] Jun, Impulse control disorder F63.9 ; Mild in tellectual disabilities F70 ; Relationship dysfunction Z63.9 and Depressive disorder F32.9 [facility] [id number] [place] [address] Jun, [facility] [address] [address] May, [facility] [address] [place] [id number] [place] [address] May, [facility] [address] [address] May, Encounter for immunization Z23 [facility] [address] [place] [address] [id number] [place] [address] Apr, [facility] [address] [address] Apr, [facility] [address] [address] Mar, [facility] [address] [address] Mar, [facility] [address] [address] 26 Feb, 2018 Annual physical exam Z00.00 [facility] [address] [address] 25 Feb, 2018 Annual physical exam Z00.00 ; Mild intel lectual disabilities F70 and Encounter for immunization Z23 [facility] [address] [address] 11 Feb, 2018 [facility] [address] [address] Jan, [facility] [address] [address] Jan, Impulse control disorder F63.9 ; Mild in tellectual disabilities F70 and Depressive disorder F32.9 [facility] [address] [address] Nov, [facility] [address] [address] Nov, [facility] [address] [address] Nov, [facility] [address] [address] Nov, [facility] [address] [address] Nov, [facility] [address] [address] 05 Nov, 2017 Impulse control disorder F63.9 ; Depress douglas disorder F32.9 and Mild intellectual disabilities F70 [facility] [address] [address] October, [facility] [address] [address] October, Impulse control disorder F63.9 ; Depress douglas disorder F32.9 and Mild intellectual disabilities F70 [facility] [address] [address] Sep, [facility] [address] [place] [address] Sep, Impulse control disorder F63.9 ; Depress douglas disorder F32.9 and Mild intellectual disabilities F70 [facility] [address] [address] Sep, Impulse control disorder F63.9 ; Depress douglas disorder F32.9 and Mild intellectual disabilities F70 [facility] [address] [address] Aug, [facility] [address] [address] Aug, Impulse control disorder F63.9 ; Depress douglas disorder F32.9 and Mild intellectual disabilities F70 [facility] [address] [id number] Aug, Dental examination Z01.20 [facility] [address] [address] Aug, [facility] [address] [address] Aug, Impulse control disorder F63.9 ; Depress douglas disorder F32.9 and Mild intellectual disabilities F70 [facility] [address] [address] Jul, Impulse control disorder F63.9 ; Depress douglas disorder F32.9 and Mild intellectual disabilities F70 [facility] [address] [id number] Jul, Dental examination Z01.20 [facility] [address] [address] Jul, [facility] [address] [address] Jun, Impulse control disorder F63.9 ; Depress douglas disorder F32.9 and Mild intellectual disabilities F70 [facility] [address] [address] 08 Jun, 2017 Impulse control disorder F63.9 ; Depress douglas disorder F32.9 and Mild intellectual disabilities F70 [facility] [address] [address] 08 Jun, 2017 [facility] [address] [address] May, [facility] [address] [address] May, Impulse control disorder F63.9 ; Depress douglas disorder F32.9 and Mild intellectual disabilities F70 [facility] [address] [address] Apr, Impulse control disorder F63.9 ; Depress douglas disorder F32.9 and Mild intellectual disabilities F70 [facility] [address] [address] Apr, Seizures R56.9 [facility] [address] [address] Apr, [facility] [address] [address] Apr, Seizures R56.9 ; Tobacco abuse Z72.0 ; A lcohol abuse F10.10 and Encounter for immunization Z23 [facility] [address] [address] Apr, Impulse control disorder F63.9 ; Depress douglas disorder F32.9 and Mild intellectual disabilities F70 [facility] [address] [address] Mar, Impulse control disorder F63.9 ; Depress douglas disorder F32.9 and Mild intellectual disabilities F70 [facility] [address] [address] Mar, [facility] [address] [address] Mar, Impulse control disorder F63.9 ; Depress douglas disorder F32.9 and Mild intellectual disabilities F70 [facility] [address] [address] Mar, [facility] [address] [address] Feb, Impulse control disorder F63.9 ; Depress douglas disorder F32.9 and Mild intellectual disabilities F70 [facility] [address] [address] Feb, [facility] [address] [address] Feb, Impulse control disorder F63.9 ; Depress douglas disorder F32.9 and Mild intellectual disabilities F70 [facility] [address] [address] Jan, Annual physical exam Z00.00 ; Right hand pain M79.641 ; Impulse control disorder F63.9 ; Mild intellectual disabilities F70 and Depressive disorder F32.9 [facility] [address] [address] Jan, Impulse control disorder F63.9 ; Depress douglas disorder F32.9 and Mild intellectual disabilities F70 [facility] [address] [address] Jan, [facility] [address] [address] Jan, Impulse control disorder F63.9 ; Depress douglas disorder F32.9 and Mild intellectual disabilities F70 [facility] [address] [address] Jan, Impulse control disorder F63.9 ; Depress douglas disorder F32.9 and Mild intellectual disabilities F70 [facility] [address] [address] Dec, [facility] [address] [address] Dec, Impulse control disorder F63.9 ; Depress douglas disorder F32.9 and Mild intellectual disabilities F70 [facility] [address] [address] Nov, Impulse control disorder F63.9 ; Depress douglas disorder F32.9 and Mild intellectual disabilities F70 [facility] [address] [address] Nov, [facility] [address] [address] Nov, [facility] [address] [address] Nov, [facility] [address] [address] October, Impulse control disorder F63.9 ; Depress douglas disorder F32.9 and Mild intellectual disabilities F70 [facility] [address] [address] October, [facility] [address] [address] October, Impulse control disorder F63.9 ; Depress douglas disorder F32.9 and Mild intellectual disabilities F70 [facility] [address] [address] Sep, [facility] [address] [address] Sep, Impulse control disorder F63.9 ; Depress douglas disorder F32.9 and Mild intellectual disabilities F70 [facility] [address] [address] Sep, Seasonal allergic rhinitis due to pollen J30.1 [facility] [address] [address] Sep, [facility] [address] [address] Sep, [facility] [address] [address] Sep, Impulse control disorder F63.9 ; Depress douglas disorder F32.9 and Mild intellectual disabilities F70 [facility] [address] [address] Aug, Impulse control disorder F63.9 ; Depress douglas disorder F32.9 and Mild intellectual disabilities F70 [facility] [address] [address] [address] [place] [address] Aug, [facility] [address] [address] Aug, [facility] [address] [address] Jul, [facility] [address] [address] Jul, Impulse control disorder F63.9 ; Depress douglas disorder F32.9 and Mild intellectual disabilities F70 [facility] [address] [id number] [place] [id number] 10 Jul, 2016 Dental examination Z01.20 [facility] [address] [place] [address] Jul, Impulse control disorder F63.9 ; Depress douglas disorder F32.9 and Mild intellectual disabilities F70 [facility] [address] [place] [address] Jul, [facility] [address] [address] Jun, [facility] [address] [address] Jun, Impulse control disorder F63.9 ; Depress douglas disorder F32.9 and Mild intellectual disabilities F70 [facility] [address] [place] [address] Jun, [facility] [address] [place] [address] Jun, [facility] [address] [address] Jun, Impulse control disorder F63.9 ; Depress douglas disorder F32.9 and Mild intellectual disabilities F70 [facility] [address] [address] May, Impulse control disorder F63.9 ; Depress douglas disorder F32.9 and Mild intellectual disabilities F70 [facility] [address] [address] May, Annual physical exam Z00.00 ; Other fati sarah R53.83 ; Seizures R56.9 ; Mild intellectual disabilities F70 and Impulse control disorder F63.9 [facility] [address] [address] May, [facility] [address] [address] May, Impulse control disorder F63.9 ; Depress douglas disorder F32.9 and Mild intellectual disabilities F70 [facility] [address] [id number] 30 Apr, 2016 Encounter for dental examination Z01.20 [facility] [address] [address] Apr, Impulse control disorder F63.9 ; Depress douglas disorder F32.9 and Mild intellectual disabilities F70 [facility] [address] [address] Apr, [facility] [address] [address] Mar, Impulse control disorder F63.9 ; Depress douglas disorder F32.9 and Mild intellectual disabilities F70 [facility] [address] [address] Mar, Impulse control disorder F63.9 ; Depress douglas disorder F32.9 and Mild intellectual disabilities F70 [facility] [address] [address] Mar, [place] [address] [address] Mar, [facility] [address] [address] Feb, Impulse control disorder F63.9 ; Depress douglas disorder F32.9 and Mild intellectual disabilities F70 [facility] [address] [address] Feb, Impulse control disorder F63.9 ; Depress douglas disorder F32.9 and Mild intellectual disabilities F70 [facility] [address] [address] Feb, [facility] [address] [address] Jan, Annual physical exam Z00.00 ; Impulse co ntrol disorder F63.9 ; Mild intellectual disabilities F70 ; Depressive disorder F32.9 and Seizures R56.9 [facility] [address] [address] Jan, Impulse control disorder F63.9 ; Depress douglas disorder F32.9 and Mild intellectual disabilities F70 [facility] [address] [address] Jan, [facility] [address] [address] Jan, Impulse control disorder F63.9 ; Depress douglas disorder F32.9 and Mild intellectual disabilities F70 [facility] [address] [address] Jan, [facility] [address] [address] Jan, [facility] [address] [address] Dec, Impulse control disorder F63.9 ; Depress douglas disorder F32.9 and Mild intellectual disabilities F70 [facility] [address] [address] Dec, Impulse control disorder F63.9 ; Depress douglas disorder F32.9 and Mild intellectual disabilities F70 [facility] [address] [address] Dec, [facility] [address] [id number] [place] [address] Dec, Depressive disorder F32.9 ; Impulse cont rol disorder F63.9 and Mild intellectual disabilities F70 [facility] [address] [address] Nov, [facility] [address] [address] Nov, Depressive disorder F32.9 ; Impulse cont rol disorder F63.9 and Mild intellectual disabilities F70 [facility] [address] [address] Nov, [facility] [address] [address] October, Depressive disorder F32.9 ; Impulse cont rol disorder F63.9 and Mild intellectual disabilities F70 [facility] [address] [address] October, [facility] [address] [address] October, [facility] [address] [address] October, Depressive disorder F32.9 ; Impulse cont rol disorder F63.9 and Mild intellectual disabilities F70 [facility] [address] [address] October, [facility] [address] [address] Sep, [facility] [address] [address] Sep, Depressive disorder F32.9 ; Impulse cont rol disorder F63.9 and Mild intellectual disabilities F70 [facility] [address] [address] Sep, Depressive disorder F32.9 ; Impulse cont rol disorder F63.9 and Mild intellectual disabilities F70 [facility] [address] [address] Sep, [facility] [address] [address] Aug, [facility] [address] [address] Aug, Depressive disorder F32.9 ; Impulse cont rol disorder F63.9 and Mild intellectual disabilities F70 [facility] [address] [address] Aug, Depressive disorder F32.9 ; Impulse cont rol disorder F63.9 and Mild intellectual disabilities F70 [facility] [address] [id number] Jul, Dental examination Z01.20 [facility] [address] [address] Jul, [facility] [address] [address] Jul, Depressive disorder F32.9 ; Impulse cont rol disorder F63.9 and Mild intellectual disabilities F70 [facility] [address] [address] Jul, Depressive disorder F32.9 ; Impulse cont rol disorder F63.9 and Mild intellectual disabilities F70 [facility] [address] [address] Jul, Depression screening Z13.89 ; Drug juliae wm, 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 and Screening for STD sexually transmitted disease Z11.3 [facility] [address] [address] Jun, [facility] [address] [address] Jun, Depressive disorder F32.9 ; Impulse cont rol disorder F63.9 and Mild intellectual disabilities F70 [facility] [address] [address] Jun, Depressive disorder, not elsewhere class ified F32.9 ; Mild mental retardation F70 and Impulse control disorder F63.9 [facility] [address] [address] Jun, Depressive disorder, not elsewhere class ified F32.9 ; Impulse control disorder F63.9 and Mild intellectual disabilities F70 [facility] [address] [address] Jun, [facility] [address] [id number] Jun, Dental examination Z01.20 [facility] [address] [address] 17 May, 2015 Depressive disorder, not elsewhere class ified F32.9 ; Impulse control disorder F63.9 and Mild intellectual disabilities F70 [facility] [address] [address] May, [facility] [address] [address] May, [facility] [address] [address] May, Depressive disorder, not elsewhere class ified F32.9 ; Impulse control disorder F63.9 and Mild intellectual disabilities F70 [facility] [address] [address] 03 May, 2015 Depressive disorder, not elsewhere class ified F32.9 ; Impulse control disorder F63.9 and Mild mental retardation F70 [facility] [address] [address] Apr, Depressive disorder, not elsewhere class ified F32.9 ; Impulse control disorder F63.9 and Mild intellectual disabilities F70 [facility] [address] [address] Apr, [facility] [address] [address] Mar, Depressive disorder, not elsewhere class ified F32.9 ; Impulse control disorder F63.9 and Mild intellectual disabilities F70 [facility] [address] [address] Mar, Depressive disorder, not elsewhere class ified F32.9 ; Impulse control disorder F63.9 and Mild intellectual disabilities F70 [facility] [address] [address] Mar, [facility] [address] [address] Mar, Encounter for immunization Z23 [place] [address] [address] Mar, Depressive disorder, not elsewhere class ified F32.9 ; Impulse control disorder F63.9 and Mild intellectual disabilities F70 [facility] [address] [address] Feb, Depressive disorder, not elsewhere class ified 311 ; Impulse control disorder, unspecified 312.30 and Mild mental retardation 317 [facility] [address] [address] Feb, [facility] [address] [address] Feb, Depressive disorder, not elsewhere class ified 311 ; Impulse control disorder, unspecified 312.30 and Mild mental retardation 317 [facility] [address] [address] Jan, Depressive disorder, not elsewhere class ified 311 ; Impulse control disorder, unspecified 312.30 and Mild mental retardation 317 [facility] [address] [address] Jan, Depressive disorder, not elsewhere class ified 311 ; Impulse control disorder, unspecified 312.30 and Mild mental retardation [address] [place] [address] [address] Jan, [facility] [address] [address] Jan, Depressive disorder, not elsewhere class ified 311 ; Impulse control disorder, unspecified 312.30 and Mild mental retardation 317 [facility] [id number] [place] [address] Dec, Depressive disorder, not elsewhere class ified 311 ; Impulse control disorder, unspecified 312.30 and Mild mental retardation 317 [facility] [address] [place] [address] Dec, [facility] [address] [id number] [place] [id number] Dec, Dental examination V72.2 [facility] [id number] [place] [address] Dec, Heat rash 705.1 ; Seizures 780.39 and Hi gh risk medication use V58.69 [facility] [id number] [place] [address] Dec, [facility] [address] [address] Dec, Depressive disorder, not elsewhere class ified 311 ; Impulse control disorder, unspecified 312.30 and Mild mental retardation 317 [facility] [id number] [place] [address] Nov, Depressive disorder, not elsewhere class ified 311 ; Impulse control disorder, unspecified 312.30 and Mild mental retardation 317 [facility] [id number] [place] [address] Nov, [facility] [address] [address] Nov, Nicotine addiction 305.1 [facility] [id number] [place] [address] Nov, [facility] [address] [address] Nov, High risk medication use V58.69 [facility] [id number] [place] [address] 10 Nov, 2014 High risk medication use V58.69 [facility] [id number] [place] [address] 09 Nov, 2014 Depressive disorder, not elsewhere class ified 311 ; Impulse control disorder, unspecified 312.30 and Mild mental retardation 317 [facility] [address] [address] Nov, Depressive disorder, not elsewhere class ified 311 ; 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 and Impulse control disorder, unspecified 312.30 [facility] [address] [address] October, Depressive disorder, not elsewhere class ified 311 ; Impulse control disorder, unspecified 312.30 and Mild mental retardation 317 [facility] [address] [address] October, [facility] [address] [address] October, Depressive disorder, not elsewhere class ified 311 ; Impulse control disorder, unspecified 312.30 and Mild mental retardation 317 [facility] [id number] [place] [address] October, [facility] [address] [id number] [place] [id number] October, Dental examination V72.2 [facility] [id number] [place] [address] Sep, Depressive disorder, not elsewhere class ified 311 ; Impulse control disorder 312.30 and Mild mental retardation 317 [facility] [address] [address] Sep, [facility] [address] [address] Sep, [facility] [id number] [place] [address] Aug, [facility] [address] [id number] [place] [address] Aug, 2014 [facility] [address] [id number] [place] [address] Aug, [facility] [address] [id number] [place] [address] Aug, 2014 [facility] [address] [id number] [place] [address] 16 Aug, 2014 [facility] [address] [id number] [place] [address] 16 Aug, 2014 [facility] [address] [id number] [place] [address] Aug, [facility] [address] [id number] [place] [address] Aug, 2014 [facility] [address] [id number] [place] [address] Jul, 2014 [facility] [address] [id number] [place] [address] 23 Jul, 2014 [facility] [address] [id number] [place] [address] Jul, 2014 [facility] [address] [id number] [place] [address] Jul, 2014 [facility] [address] [id number] [place] [address] 16 Jul, 2014 [facility] [address] [id number] [place] [address] 16 Jul, 2014 [facility] [address] [id number] [place] [address] 16 Jul, 2014 [facility] [address] [id number] [place] [address] 16 Jul, 2014 [facility] [address] [id number] [place] [address] 11 Jul, 2014 [facility] [address] [id number] [place] [address] Jul, [facility] [address] [id number] [place] [address] Jul, [facility] [address] [id number] [place] [address] Jul, [facility] [address] [id number] [place] [address] Jul, [facility] [address] [id number] [place] [address] Jul, [facility] [address] [id number] [place] [address] Jun, [facility] [address] [id number] [place] [address] Jun, [facility] [address] [id number] [place] [address] Jun, [facility] [address] [id number] [place] [address] Jun, [facility] [address] [id number] [place] [address] Jun, [facility] [address] [id number] [place] [address] Jun, [facility] [address] [id number] [place] [address] Jun, [facility] [address] [id number] [place] [address] Jun, [facility] [address] [id number] [place] [address] Jun, [facility] [address] [id number] [place] [address] Jun, [facility] [address] [id number] [place] [address] Jun, [facility] [address] [id number] [place] [address] Jun, [facility] [address] [id number] [place] [address] 08 Jun, 2014 [facility] [address] [id number] [place] [address] Jun, [facility] [address] [id number] [place] [address] 08 Jun, 2014 [facility] [address] [id number] [place] [address] Jun, [facility] [address] [id number] [place] [address] Jun, [facility] [address] [id number] [place] [address] Jun, [facility] [address] [id number] [place] [address] Jun, [facility] [id number] [place] [address] Jun, [facility] [address] [id number] [place] [address] May, [facility] [address] [id number] [place] [address] May, [facility] [address] [id number] [place] [address] May, [facility] [address] [id number] [place] [address] May, [facility] [address] [id number] [place] [address] May, [facility] [address] [id number] [place] [address] Apr, [facility] [address] [id number] [place] [address] Apr, [facility] [address] [id number] [place] [address] Apr, [facility] [address] [id number] [place] [address] Apr, [facility] [address] [facility] [id number] [place] [address] Apr, [facility] [address] [id number] [place] [address] Apr, [facility] [address] [id number] [place] [address] Apr, [facility] [address] [id number] [place] [address] Apr, [facility] [address] [id number] [place] [address] Mar, [facility] [address] [id number] [place] [address] Mar, [facility] [address] [id number] [place] [address] Mar, [facility] [address] [id number] [place] [address] Mar, [facility] [address] [id number] [place] [address] Mar, [facility] [address] [id number] [place] [address] Mar, [facility] [address] [id number] [place] [address] Mar, [facility] [address] [id number] [place] [address] Mar, [facility] [address] [id number] [place] [address] Mar, [facility] [address] [id number] [place] [address] Mar, [facility] [address] [id number] [place] [address] Mar, 2013 [facility] [address] [id number] [place] [address] Mar, 2013 [facility] [address] [id number] [place] [address] 15 Mar, 2014 [facility] [address] [facility] [id number] [place] [address] Mar, [facility] [address] [id number] [place] [address] Mar, [facility] [address] [id number] [place] [address] Mar, [facility] [address] [id number] [place] [address] Mar, 2013 [facility] [address] [id number] [place] [address] Mar, [facility] [address] [id number] [place] [address] Mar, [facility] [address] [id number] [place] [address] Mar, [facility] [address] [id number] [place] [address] 24 Feb, 2013 [facility] [address] [id number] [place] [address] 24 Feb, 2013 [facility] [address] [id number] [place] [address] Feb, 2013 [facility] [address] [id number] [place] [address] Feb, 2013 [facility] [address] [id number] [place] [address] 11 Feb, 2013 [facility] [address] [id number] [place] [address] 11 Feb, 2013 [facility] [address] [id number] [place] [address] 05 Feb, 2013 [facility] [address] [id number] [place] [address] 05 Feb, 2013 [facility] [address] [id number] [place] [address] Jan, [facility] [address] [id number] [place] [address] Jan, [facility] [address] [facility] [id number] [place] [address] Jan, [facility] [address] [facility] [id number] [place] [address] Jan, [facility] [address] [id number] [place] [address] Dec, [facility] [address] [facility] [id number] [place] [address] Dec, [facility] [address] [id number] [place] [address] Dec, [facility] [address] [id number] [place] [address] Dec, [facility] [address] [id number] [place] [address] Dec, [facility] [address] [id number] [place] [address] Dec, [facility] [address] [id number] [place] [address] Dec, [facility] [address] [id number] [place] [address] Dec, [facility] [address] [id number] [place] [address] Dec, [facility] [address] [id number] [place] [address] Dec, [facility] [address] [facility] [id number] [place] [address] Nov, [facility] [address] [facility] [id number] [place] [address] Nov, [facility] [address] [id number] [place] [address] Nov, [facility] [address] [id number] [place] [address] Nov, [facility] [address] [facility] [id number] [facility] [place] [address] Nov, [facility] [address] [facility] [id number] [facility] [place] [address] Nov, [facility] [address] [id number] [facility] [place] [address] Nov, [facility] [address] [facility] [id number] [facility] [place] [address] Nov, [facility] [address] [facility] [id number] [facility] [place] [address] Nov, [facility] [address] [id number] [place] [address] Nov, [facility] [address] [id number] [place] [address] Nov, [facility] [address] [id number] [place] [address] Nov, [facility] [address] [id number] [place] [address] October, [facility] [address] [id number] [place] [address] October, [facility] [address] [id number] [place] [address] October, [facility] [address] [id number] [place] [address] October, [facility] [address] [id number] [place] [address] October, [facility] [address] [id number] [place] [address] October, [facility] [address] [id number] [place] [address] October, [facility] [address] [id number] [place] [address] October, [facility] [address] [id number] [place] [address] October, [facility] [address] [facility] [id number] [place] [address] October, [facility] [address] [id number] [place] [address] Sep, [facility] [address] [id number] [place] [address] Sep, [facility] [address] [id number] [place] [address] Sep, [facility] [address] [id number] [place] [address] Sep, [facility] [address] [id number] [place] [address] Sep, [facility] [address] [id number] [place] [address] Sep, [facility] [address] [id number] [place] [address] Sep, [facility] [address] [id number] [place] [address] Sep, [facility] [address] [id number] [place] [address] Aug, [facility] [address] [id number] [place] [address] Aug, [facility] [address] [id number] [place] [address] Aug, [facility] [address] [id number] [place] [address] Aug, [facility] [address] [id number] [place] [address] Aug, [facility] [address] [id number] [place] [address] Aug, [facility] [address] [id number] [place] [address] Aug, [facility] [address] [id number] [place] [address] Aug, [facility] [address] [facility] [id number] [place] [address] Jul, [facility] [address] [facility] [id number] [place] [address] Jul, [facility] [address] [id number] [place] [address] Jul, [facility] [address] [facility] [id number] [place] [address] Jul, [facility] [address] [id number] [place] [address] Jul, [facility] [address] [id number] [place] [address] Jul, [facility] [address] [id number] [place] [address] Jul, [facility] [address] [id number] [place] [address] Jul, [facility] [address] [id number] [place] [address] Jun, [facility] [address] [id number] [place] [address] Jun, [facility] [address] [id number] [place] [address] Jun, [facility] [address] [facility] [id number] [place] [address] Jun, [facility] [address] [id number] [place] [address] Jun, [facility] [address] [id number] [place] [address] Jun, [facility] [address] [id number] [place] [address] Jun, [facility] [address] [id number] [place] [address] Jun, [facility] [address] [id number] [place] [address] May, [facility] [address] [id number] [place] [address] May, [facility] [address] [id number] [place] [address] May, [facility] [address] [id number] [place] [address] May, [facility] [address] [id number] [place] [address] May, [facility] [address] [id number] [place] [address] May, [facility] [address] [id number] [place] [address] Apr, [facility] [address] [id number] [place] [address] Apr, [facility] [address] [id number] [place] [address] Mar, [facility] [address] [id number] [place] [address] Mar, [facility] [address] [id number] [place] [address] Mar, [facility] [address] [id number] [place] [address] Mar, [facility] [address] [id number] [place] [address] Mar, [facility] [id number] [place] [address] Feb, [facility] [address] [id number] [place] [address] Jan, [facility] [address] [id number] [place] [address] Jan, [facility] [address] [id number] [place] [address] Jan, [facility] [address] [id number] [place] [address] Jan, [facility] [address] [id number] [place] [address] Jan, [facility] [address] [id number] [place] [address] Dec, [facility] [address] [id number] [place] [address] Dec, [facility] [address] [id number] [place] [address] Dec, [facility] [address] [id number] [place] [address] Dec, [facility] [address] [id number] [place] [address] Nov, [facility] [address] [id number] [place] [address] Nov, [facility] [address] [id number] [place] [address] Nov, [facility] [address] [id number] [place] [address] October, [facility] [address] [id number] [place] [address] October, [facility] [address] [id number] [place] [address] October, [facility] [address] [id number] [place] [address] Sep, [facility] [address] [id number] [place] [address] Sep, [facility] [address] [id number] [place] [address] Aug, [facility] [address] [id number] [place] [address] Aug, [facility] [address] [id number] [facility] [place] [address] Jul, [facility] [address] [id number] [place] [address] Jul, [facility] [address] [id number] [place] [address] Jul, [facility] [address] [id number] [place] [address] Jul, [facility] [address] [id number] [place] [address] Jul, [facility] [address] [id number] [place] [address] Jun, [facility] [address] [id number] [place] [address] May, [facility] [address] [id number] [place] [address] 31 May, 2012 [facility] [address] [id number] [place] [address] 14 May, 2012 [facility] [address] [id number] [place] [address] 14 May, 2012 [facility] [address] [id number] [place] [address] May, [facility] [address] [id number] [place] [address] May, [facility] [address] [id number] [place] [address] 10 May, 2012 [facility] [address] [id number] [place] [address] May, [facility] [address] [id number] [place] [address] Apr, [facility] [address] [id number] [place] [address] Apr, [facility] [address] [id number] [place] [address] Apr, [facility] [address] [id number] [place] [address] Apr, [facility] [address] [id number] [place] [address] Mar, [facility] [address] [id number] [place] [address] Mar, [facility] [address] [id number] [place] [address] Mar, [facility] [address] [id number] [place] [address] Feb, [facility] [address] [id number] [place] [address] Feb, [facility] [address] [id number] [place] [address] Jan, [facility] [address] [id number] [place] [address] Jan, [facility] [address] [id number] [place] [address] Jan, [facility] [address] [id number] [place] [address] Dec, [facility] [address] [id number] [place] [address] Dec, [facility] [address] [id number] [place] [address] Dec, [facility] [address] [id number] [place] [address] Dec, [facility] [address] [id number] [place] [address] Nov, [facility] [address] [id number] [place] [address] Nov, [facility] [address] [id number] [place] [address] Nov, [facility] [address] [id number] [place] [address] October, [facility] [address] [id number] [place] [address] October, [facility] [address] [id number] [place] [address] October, [facility] [address] [id number] [place] [address] Sep, [facility] [address] [id number] [place] [address] Sep, [facility] [address] [id number] [place] [address] Sep, [facility] [address] [id number] [place] [address] Aug, [facility] [id number] [place] [address] Aug, [facility] [address] [id number] [place] [address] Aug, [facility] [address] [id number] [place] [address] Jul, [facility] [address] [id number] [place] [address] Jun, [facility] [id number] [place] [address] Jun, [facility] [address] [id number] [place] [address] May, [facility] [address] [id number] [place] [address] May, [facility] [address] [id number] [place] [address] May, [facility] [address] [id number] [place] [address] May, [facility] [id number] [place] [address] Apr, [facility] [address] [id number] [place] [address] Apr, [facility] [address] [id number] [place] [address] Apr, [facility] [id number] [place] [address] Apr, [facility] [id number] [place] [address] Apr, [facility] [id number] [place] [address] Mar, [facility] [id number] [place] [address] Mar, [facility] [id number] [place] [address] Jan, [facility] [id number] [place] [address] May, [facility] [id number] [place] [address] Apr, [facility] [id number] [place] [address] Mar, [facility] [id number] [place] [address] Jun, [facility] [id number] [place] [address] Apr, [facility] [id number] [place] [address] Apr, IMMUNIZATIONS No Known Immunizations SOCIAL HISTORY Never Assessed REASON FOR VISIT PLAN OF CARE VITAL SIGNS MEDICATIONS Unknown Medications RESULTS No Results PROCEDURES No Known procedures INSTRUCTIONS MEDICATIONS ADMINISTERED No Known Medications MEDICAL (GENERAL) HISTORY Type Description Date Medical History seizures Surgical History No Surgical history information
--- OUTSIDE RECORDS SUMMARY | 2019-09-07 03:04 | XMS REPORT | Continuity of Care Document ---
Author Organization Unknown Address Unknown Phone Unavailable Allergies Active Description Code Type Severity Reaction Onset Reported/Identified Relationship to Patient Clinical Status Yes No Known Drug Allergies [id number] Drug Allergy Unknown N/A 07/27/2013 Medications There is no data. Problems Date Dx Coded Attending Type Code Diagnosis Diagnosed By 05/11/2008 MARY DOMINIQUE DO V70 .3 SPORTS/SCHO[employer] EXAM 05/11/2008 MARY DOMINIQUE DO V70 .3 SP[employer]TS/S[employer]OL EXAM 05/11/2008 LISA PHDIWONA V70.3 SPORTS/SCHOOL EXAM 05/11/2008 V70.3 SPOR TS/SCHOOL EXAM 05/11/2008 MARY DOMINIQUE DO V70 .3 SPORTS/SCHOOL EXAM 05/11/2008 MARY DOMINIQUE DO V70 .3 SPORTS/SCHOOL EXAM 05/11/2008 V70.3 SPOR TS/SCHOOL EXAM 05/11/2008 V70.3 SPOR TS/SCHOOL EXAM 05/11/2008 V70.3 SPOR TS/SCHOOL EXAM 05/11/2008 V70.3 SPOR TS/SCHOOL EXAM 05/11/2008 V70.3 SPOR TS/SCHOOL EXAM 05/11/2008 V70.3 SPOR TS/SCHOOL EXAM 05/11/2008 V70.3 SPOR TS/SCHOOL EXAM 05/11/2008 V70.3 SPOR TS/SCHOOL EXAM 05/11/2008 V70.3 SPOR TS/SCHOOL EXAM 05/11/2008 IWONA GONZALEZ PHD V70.3 SPORTS/SCHOOL EXAM 05/11/2008 LISA PHD, IWONA Villarreal V70.3 SPORTS/SCHOOL EXAM 05/11/2008 LISA PHDIWONA V70.3 SPORTS/SCHOOL EXAM 05/11/2008 LISA PHD, IWONA Villarreal V70.3 SPORTS/SCHOOL EXAM 05/11/2008 LISA PHD, IWONA Villarreal V70.3 SPORTS/SCHOOL EXAM 05/11/2008 LISA PHDIWONA V70.3 SPORTS/SCHOOL EXAM 05/11/2008 CHEYENNE GALVIN, MELISA V70.3 SPORTS/SCHOOL EXAM 05/11/2008 LISA PHD, IWONA Villarreal V70.3 SPORTS/SCHOOL EXAM 05/11/2008 NIMESH TILLEY JR V70.3 SPORTS/SCHOOL EXAM 05/11/2008 BOEAKILA PHD, IWONA A V70.3 SPORTS/SCHOOL EXAM 05/11/2008 LISA PHD, IWONA A V70.3 SPORTS/SCHOOL EXAM 05/11/2008 LISA PHD, IWONA A V70.3 SPORTS/S[employer]OL EXAM 05/11/2008 BOEAKILA PHD, IWONA A V70.3 SPORTS/SCHOOL EXAM 05/11/2008 LISA PHD, IWONA A V70.3 SPORTS/SCHOOL EXAM 05/11/2008 LISA PHD, IWONA A V70.3 SPORTS/SCHOOL EXAM 05/11/2008 WOO BENSON, ALVARADO De Souza V70.3 SPORTS/SCHOOL EXAM 05/11/2008 ALVARADO BERKOWITZ APRN V70.3 SPORTS/SCHOOL EXAM 05/11/2008 LISA PHD, IWONA A V70.3 SPORTS/S[employer]OL EXAM 05/11/2008 ALVARADO BERKOWITZ APRN J V70.3 SPORTS/SCHOOL EXAM 05/11/2008 LISA PHD, IWONA A V70.3 SPORTS/SCHOOL EXAM 05/11/2008 ALVARADO BERKOWITZ APRN V70.3 SPORTS/S[employer]OL EXAM 05/11/2008 LISA SOUZA, IWONA A V70.3 SPORTS/SCHOOL EXAM 05/11/2008 KASIA PALMER APRN V70.3 SPORTS/SCHOOL EXAM 05/11/2008 ARLET MALONEY DDS V7 0.3 SPORTS/SCHOOL EXAM 05/11/2008 YANNICK BERKOWITZ APRNA J V70.3 SPORTS/SCHOOL EXAM 05/11/2008 LISA SOUZA, IWONA Villarreal V70.3 SPORTS/SCHOOL EXAM 05/11/2008 LISA SOUZA, IWONA A V70.3 SPORTS/SCHOOL EXAM 05/11/2008 LISA PHD, IWONA A V70.3 SPORTS/S[employer]OL EXAM 05/11/2008 LISA SOUZA, IWONA A V70.3 SPORTS/S[employer]OL EXAM 05/11/2008 LISA PHD, IWONA A V70.3 SPORTS/S[employer]OL EXAM 05/11/2008 LISA PHD, IWONA A V70.3 SPORTS/S[employer]OL EXAM 05/11/2008 LISA PHD, IWONA A V70.3 SPORTS/S[employer]OL EXAM 05/11/2008 ELVA GALVIN, SARIAH N V70 .3 SPORTS/SCHOOL EXAM 05/11/2008 BOEAKILA PHD, IWONA A V70.3 SPORTS/SCHOOL EXAM 05/11/2008 ELVA GALVIN, SARIAH N V70 .3 SPORTS/SCHOOL EXAM 05/11/2008 WOO RIBBON TIER, ALVARADO J V70.3 SPORTS/SCHOOL EXAM 05/11/2008 BOEAKILA PHD, IWONA A V70.3 SPORTS/SCHOOL EXAM 05/11/2008 ESTELA GOMESN, KASIA [place] V70.3 SPORTS/SCHOOL EXAM 05/11/2008 WOO GOMESN, ALVARADO J V70.3 SPORTS/SCHOOL EXAM 05/11/2008 LISA PHD, IWONA A V70.3 SPORTS/SCHOOL EXAM 05/11/2008 LISA PHD, IWONA A V70.3 SPORTS/SCHOOL EXAM 05/11/2008 AG GOMESN, MARCE A V7 0.3 SPORTS/SCHOOL EXAM 05/11/2008 LISA PHD, IWONA A V70.3 SPORTS/SCHOOL EXAM 05/11/2008 LISA PHD, IWONA A V70.3 SPORTS/SCHOOL EXAM 05/11/2008 WOO RIBBON TIER, ALVARADO J V70.3 SPORTS/SCHOOL EXAM 05/11/2008 LISA PHD, IWONA A V70.3 SPORTS/SCHOOL EXAM 05/11/2008 LISA PHD, IWONA A V70.3 SPORTS/SCHOOL EXAM 05/11/2008 AMARA DDSARLET V7 0.3 SPORTS/SCHOOL EXAM 05/11/2008 LISA PHD, IWONA A V70.3 SPORTS/SCHOOL EXAM 05/12/2008 MARY DOMINIQUE DO 298 .9 P PSYCHOSIS NOS 05/12/2008 MARY DOMINIQUE DO 307 .47 SI DYSSOMNIA NOS 05/12/2008 MARY DOMINIQUE DO 345 .90 EPILEPSY UNSPECIFIED WITHOUT INTRACTABLE EPILEPSY 05/12/2008 MARY DOMINIQUE DO 298 .9 P PSYCHOSIS NOS 05/12/2008 MARY DOMINIQUE DO F 307 .47 SI DYSSOMNIA NOS 05/12/2008 TRIP SHAW MARY F 345 .90 EPILEPSY UNSPECIFIED WITHOUT INTRACTABLE EPILEPSY 05/12/2008 LISA SOUZA, IWONA Villarreal 298.9 P PSYCHOSIS NOS 05/12/2008 LISA SOUZA, IWONA Villarreal 307.47 SI DYSSOMNIA NOS 05/12/2008 LISA SOUZA, IWONA Villarreal 345.90 EPILEPSY UNSPECIFIED WITHOUT INTRACTABLE EPILEPSY 05/12/2008 298.9 P PS YCHOSIS NOS 05/12/2008 307.47 SI DYSSOMNIA NOS 05/12/2008 345.90 EPI LEPSY UNSPECIFIED WITHOUT INTRACTABLE EPILEPSY 05/12/2008 TRIP SHAW MARY Maza 298 .9 P PSYCHOSIS NOS 05/12/2008 TRIP SHAW MARY Maza 307 .47 SI DYSSOMNIA NOS 05/12/2008 TRIP SHAW MARY Maza 345 .90 EPILEPSY UNSPECIFIED WITHOUT INTRACTABLE EPILEPSY 05/12/2008 TRIP SHAW MARY Maza 298 .9 P PSYCHOSIS NOS 05/12/2008 TRIP SHAW MARY Maza 307 .47 SI DYSSOMNIA NOS 05/12/2008 TRIP SHAW MARY Maza 345 .90 EPILEPSY UNSPECIFIED WITHOUT INTRACTABLE EPILEPSY 05/12/2008 298.9 P PS YCHOSIS NOS 05/12/2008 307.47 SI DYSSOMNIA NOS 05/12/2008 345.90 EPI LEPSY UNSPECIFIED WITHOUT INTRACTABLE EPILEPSY 05/12/2008 298.9 P PS YCHOSIS NOS 05/12/2008 307.47 SI DYSSOMNIA NOS 05/12/2008 345.90 EPI LEPSY UNSPECIFIED WITHOUT INTRACTABLE EPILEPSY 05/12/2008 298.9 P PS YCHOSIS NOS 05/12/2008 307.47 SI DYSSOMNIA NOS 05/12/2008 345.90 EPI LEPSY UNSPECIFIED WITHOUT INTRACTABLE EPILEPSY 05/12/2008 298.9 P PS YCHOSIS NOS 05/12/2008 307.47 SI DYSSOMNIA NOS 05/12/2008 345.90 EPI LEPSY UNSPECIFIED WITHOUT INTRACTABLE EPILEPSY 05/12/2008 298.9 P PS YCHOSIS NOS 05/12/2008 307.47 SI DYSSOMNIA NOS 05/12/2008 345.90 EPI LEPSY UNSPECIFIED WITHOUT INTRACTABLE EPILEPSY 05/12/2008 298.9 P PS YCHOSIS NOS 05/12/2008 307.47 SI DYSSOMNIA NOS 05/12/2008 345.90 EPI LEPSY UNSPECIFIED WITHOUT INTRACTABLE EPILEPSY 05/12/2008 298.9 P PS YCHOSIS NOS 05/12/2008 307.47 SI DYSSOMNIA NOS 05/12/2008 345.90 EPI LEPSY UNSPECIFIED WITHOUT INTRACTABLE EPILEPSY 05/12/2008 298.9 P PS YCHOSIS NOS 05/12/2008 307.47 SI DYSSOMNIA NOS 05/12/2008 345.90 EPI LEPSY UNSPECIFIED WITHOUT INTRACTABLE EPILEPSY 05/12/2008 298.9 P PS YCHOSIS NOS 05/12/2008 307.47 SI DYSSOMNIA NOS 05/12/2008 345.90 EPI LEPSY UNSPECIFIED WITHOUT INTRACTABLE EPILEPSY 05/12/2008 IWONA GONZALEZ PHD A 298.9 P PSYCHOSIS NOS 05/12/2008 IWONA GONZALEZ PHD 307.47 SI DYSSOMNIA NOS 05/12/2008 IWONA GONZALEZ PHD 345.90 EPILEPSY UNSPECIFIED WITHOUT INTRACTABLE EPILEPSY 05/12/2008 IWONA GONZALEZ PHD A 298.9 P PSYCHOSIS NOS 05/12/2008 IWONA GONZALEZ PHD 307.47 SI DYSSOMNIA NOS 05/12/2008 IWONA GONZALEZ PHD 345.90 EPILEPSY UNSPECIFIED WITHOUT INTRACTABLE EPILEPSY 05/12/2008 IWONA GONZALEZ PHD A 298.9 P PSYCHOSIS NOS 05/12/2008 IWONA GONZALEZ PHD 307.47 SI DYSSOMNIA NOS 05/12/2008 IWONA GONZALEZ PHD A 345.90 EPILEPSY UNSPECIFIED WITHOUT INTRACTABLE EPILEPSY 05/12/2008 IWONA GONZALEZ PHD A 298.9 P PSYCHOSIS NOS 05/12/2008 IWONA GONZALEZ PHD A 307.47 SI DYSSOMNIA NOS 05/12/2008 IWONA GONZALEZ PHD A 345.90 EPILEPSY UNSPECIFIED WITHOUT INTRACTABLE EPILEPSY 05/12/2008 IWONA GONZALEZ PHD A 298.9 P PSYCHOSIS NOS 05/12/2008 IWONA GONZALEZ PHD A 307.47 SI DYSSOMNIA NOS 05/12/2008 IWONA GONZALEZ PHD A 345.90 EPILEPSY UNSPECIFIED WITHOUT INTRACTABLE EPILEPSY 05/12/2008 IWONA GONZALEZ PHD A 298.9 P PSYCHOSIS NOS 05/12/2008 IWONA GONZALEZ PHD A 307.47 SI DYSSOMNIA NOS 05/12/2008 LISA PHD, IWONA A 345.90 EPILEPSY UNSPECIFIED WITHOUT INTRACTABLE EPILEPSY 05/12/2008 MELISA QUINN MD 298.9 P PSYCHOSIS NOS 05/12/2008 MELISA QUINN MD 307.4 7 SI DYSSOMNIA NOS 05/12/2008 MELISA QUINN MD 345.9 0 EPILEPSY UNSPECIFIED WITHOUT INTRACTABLE EPILEPSY 05/12/2008 LISA PHD, IWONA A 298.9 P PSYCHOSIS NOS 05/12/2008 LISA PHD, IWONA A 307.47 SI DYSSOMNIA NOS 05/12/2008 BOEAKILA PHD, IWONA A 345.90 EPILEPSY UNSPECIFIED WITHOUT INTRACTABLE EPILEPSY 05/12/2008 TREVA OREILLY NIMESH S 298.9 P PSYCHOSIS NOS 05/12/2008 TREVA OREILLY, NIMESH S 307.47 SI DYSSOMNIA NOS 05/12/2008 TREVA OREILLY, NIMESH S 345.90 EPILEPSY UNSPECIFIED WITHOUT INTRACTABLE EPILEPSY 05/12/2008 LISA SOUZA, IWONA A 298.9 P PSYCHOSIS NOS 05/12/2008 LISA PHD, IWONA A 307.47 SI DYSSOMNIA NOS 05/12/2008 LISA PHD, IWONA A 345.90 EPILEPSY UNSPECIFIED WITHOUT INTRACTABLE EPILEPSY 05/12/2008 LISA SOUZA, IWONA A 298.9 P PSYCHOSIS NOS 05/12/2008 LISA SOUZA, IWONA A 307.47 SI DYSSOMNIA NOS 05/12/2008 LISA PHD, IWONA A 345.90 EPILEPSY UNSPECIFIED WITHOUT INTRACTABLE EPILEPSY 05/12/2008 LISA SOUZA, IWONA A 298.9 P PSYCHOSIS NOS 05/12/2008 LISA PHD, IWONA A 307.47 SI DYSSOMNIA NOS 05/12/2008 LISA PHD, IWONA A 345.90 EPILEPSY UNSPECIFIED WITHOUT INTRACTABLE EPILEPSY 05/12/2008 LISA SOUZA, IWONA A 298.9 P PSYCHOSIS NOS 05/12/2008 LISA SOUZA, IWONA A 307.47 SI DYSSOMNIA NOS 05/12/2008 LISA SOUZA, IWONA A 345.90 EPILEPSY UNSPECIFIED WITHOUT INTRACTABLE EPILEPSY 05/12/2008 LISA SOUZA, IWONA A 298.9 P PSYCHOSIS NOS 05/12/2008 LISA SOUZA, IWONA A 307.47 SI DYSSOMNIA NOS 05/12/2008 IWONA GONZALEZ PHD 345.90 EPILEPSY UNSPECIFIED WITHOUT INTRACTABLE EPILEPSY 05/12/2008 IWONA GONZALEZ PHD 298.9 P PSYCHOSIS NOS 05/12/2008 IWONA GONZALEZ PHD 307.47 SI DYSSOMNIA NOS 05/12/2008 IWONA GONZALEZ PHD 345.90 EPILEPSY UNSPECIFIED WITHOUT INTRACTABLE EPILEPSY 05/12/2008 WOO BENSON ALVARADO J 298.9 P PSYCHOSIS NOS 05/12/2008 WOO BENSON, ALVARADO J 307.47 SI DYSSOMNIA NOS 05/12/2008 WOO GOMESN, ALVARADO J 345.90 EPILEPSY UNSPECIFIED WITHOUT INTRACTABLE EPILEPSY 05/12/2008 WOO GOMESN, ALVARADO J 298.9 P PSYCHOSIS NOS 05/12/2008 WOO GOMESN, ALVARADO J 307.47 SI DYSSOMNIA NOS 05/12/2008 WOO BENSON, ALVARADO J 345.90 EPILEPSY UNSPECIFIED WITHOUT INTRACTABLE EPILEPSY 05/12/2008 IWONA GONZALEZ PHD 298.9 P PSYCHOSIS NOS 05/12/2008 IWONA GONZALEZ PHD 307.47 SI DYSSOMNIA NOS 05/12/2008 IWONA GONZALEZ PHD 345.90 EPILEPSY UNSPECIFIED WITHOUT INTRACTABLE EPILEPSY 05/12/2008 WOO BENSON ALVARADO J 298.9 P PSYCHOSIS NOS 05/12/2008 WOO GOMESN, ALVARADO J 307.47 SI DYSSOMNIA NOS 05/12/2008 WOO BENSON ALVARADO J 345.90 EPILEPSY UNSPECIFIED WITHOUT INTRACTABLE EPILEPSY 05/12/2008 IWONA GONZALEZ PHD 298.9 P PSYCHOSIS NOS 05/12/2008 IWONA GONZALEZ PHD 307.47 SI DYSSOMNIA NOS 05/12/2008 IWONA GONZALEZ PHD 345.90 EPILEPSY UNSPECIFIED WITHOUT INTRACTABLE EPILEPSY 05/12/2008 WOO RIBBON TIER, ALVARADO J 298.9 P PSYCHOSIS NOS 05/12/2008 WOO BENSON, ALVARADO J 307.47 SI DYSSOMNIA NOS 05/12/2008 WOO BENSON, ALVARADO J 345.90 EPILEPSY UNSPECIFIED WITHOUT INTRACTABLE EPILEPSY 05/12/2008 IWONA GONZALEZ PHD 298.9 P PSYCHOSIS NOS 05/12/2008 IWONA GONZALEZ PHD 307.47 SI DYSSOMNIA NOS 05/12/2008 LISA SOUZA, IWONA A 345.90 EPILEPSY UNSPECIFIED WITHOUT INTRACTABLE EPILEPSY 05/12/2008 ESTELA RIBBON TIER, KASIA S 298.9 P PSYCHOSIS NOS 05/12/2008 ESTELA RIBBON TIER, KASIA S 307.47 SI DYSSOMNIA NOS 05/12/2008 ESTELA RIBBON TIER, KASIA S 345.90 EPILEPSY UNSPECIFIED WITHOUT INTRACTABLE EPILEPSY 05/12/2008 MALONEY DDS, ARLET 29 8.9 P PSYCHOSIS NOS 05/12/2008 MALONEY DDS, ARLET 307.47 SI DYSSOMNIA NOS 05/12/2008 MALONEY DDS, ARLET 345.90 EPILEPSY UNSPECIFIED WITHOUT INTRACTABLE EPILEPSY 05/12/2008 WOO RIBBON TIER, ALVARADO J 298.9 P PSYCHOSIS NOS 05/12/2008 WOO RIBBON TIER, ALVARADO J 307.47 SI DYSSOMNIA NOS 05/12/2008 WOO RIBBON TIER, ALVARADO J 345.90 EPILEPSY UNSPECIFIED WITHOUT INTRACTABLE EPILEPSY 05/12/2008 IWONA GONZALEZ PHD A 298.9 P PSYCHOSIS NOS 05/12/2008 LISA SOUZA, IWONA A 307.47 SI DYSSOMNIA NOS 05/12/2008 LISA SOUZA, IWONA A 345.90 EPILEPSY UNSPECIFIED WITHOUT INTRACTABLE EPILEPSY 05/12/2008 IWONA GONZALEZ PHD A 298.9 P PSYCHOSIS NOS 05/12/2008 LISA SOUZA, IWONA A 307.47 SI DYSSOMNIA NOS 05/12/2008 LISA SOUZA, IWONA A 345.90 EPILEPSY UNSPECIFIED WITHOUT INTRACTABLE EPILEPSY 05/12/2008 IWONA GONZALEZ PHD A 298.9 P PSYCHOSIS NOS 05/12/2008 LISA SOUZA, IWONA A 307.47 SI DYSSOMNIA NOS 05/12/2008 LISA SOUZA, IWONA A 345.90 EPILEPSY UNSPECIFIED WITHOUT INTRACTABLE EPILEPSY 05/12/2008 LISA SOUZA, IWONA A 298.9 P PSYCHOSIS NOS 05/12/2008 LISA SOUZA, IWONA A 307.47 SI DYSSOMNIA NOS 05/12/2008 LISA SOUZA, IWONA A 345.90 EPILEPSY UNSPECIFIED WITHOUT INTRACTABLE EPILEPSY 05/12/2008 LISA SOUZA, IWONA A 298.9 P PSYCHOSIS NOS 05/12/2008 LISA SOUZA, IWONA A 307.47 SI DYSSOMNIA NOS 05/12/2008 [facility], IWONA A 345.90 EPILEPSY UNSPECIFIED WITHOUT INTRACTABLE EPILEPSY 05/12/2008 [facility] PHD, IWONA A 298.9 P PSYCHOSIS NOS 05/12/2008 [facility], IWONA A 307.47 SI DYSSOMNIA NOS 05/12/2008 [facility], IWONA A 345.90 EPILEPSY UNSPECIFIED WITHOUT INTRACTABLE EPILEPSY 05/12/2008 [facility] PHD, IWONA A 298.9 P PSYCHOSIS NOS 05/12/2008 [facility], IWONA A 307.47 SI DYSSOMNIA NOS 05/12/2008 [facility], IWONA A 345.90 EPILEPSY UNSPECIFIED WITHOUT INTRACTABLE EPILEPSY 05/12/2008 SARIAH STEVENSON MD N 298 .9 P PSYCHOSIS NOS 05/12/2008 SARIAH STEVENSON MD 307 .47 SI DYSSOMNIA NOS 05/12/2008 SARIAH STEVENSON MD 345 .90 EPILEPSY UNSPECIFIED WITHOUT INTRACTABLE EPILEPSY 05/12/2008 [facility], IWONA A 298.9 P PSYCHOSIS NOS 05/12/2008 [facility], IWONA Villarreal 307.47 SI DYSSOMNIA NOS 05/12/2008 [facility], IWONA A 345.90 EPILEPSY UNSPECIFIED WITHOUT INTRACTABLE EPILEPSY 05/12/2008 SARIAH STEVENSON MD N 298 .9 P PSYCHOSIS NOS 05/12/2008 SARIAH STEVENSON MD N 307 .47 SI DYSSOMNIA NOS 05/12/2008 SARIAH STEVENSON MD N 345 .90 EPILEPSY UNSPECIFIED WITHOUT INTRACTABLE EPILEPSY 05/12/2008 WOO BENSON, ALVARADO J 298.9 P PSYCHOSIS NOS 05/12/2008 WOO BENSON, ALVARADO J 307.47 SI DYSSOMNIA NOS 05/12/2008 WOO BENSON, ALVARADO J 345.90 EPILEPSY UNSPECIFIED WITHOUT INTRACTABLE EPILEPSY 05/12/2008 [facility] IWONA A 298.9 P PSYCHOSIS NOS 05/12/2008 [facility], IWONA A 307.47 SI DYSSOMNIA NOS 05/12/2008 [facility], IWONA A 345.90 EPILEPSY UNSPECIFIED WITHOUT INTRACTABLE EPILEPSY 05/12/2008 IZA PALMER APRNA S 298.9 P PSYCHOSIS NOS 05/12/2008 ESTELA RIBBON TIER, KASIA S 307.47 SI DYSSOMNIA NOS 05/12/2008 ESTELA RIBBON TIER, KASIA S 345.90 EPILEPSY UNSPECIFIED WITHOUT INTRACTABLE EPILEPSY 05/12/2008 WOO RIBBON TIER, ALVARADO J 298.9 P PSYCHOSIS NOS 05/12/2008 WOO RIBBON TIER, ALVARADO J 307.47 SI DYSSOMNIA NOS 05/12/2008 WOO RIBBON TIER, ALVARADO J 345.90 EPILEPSY UNSPECIFIED WITHOUT INTRACTABLE EPILEPSY 05/12/2008 IWONA GONZALEZ PHD 298.9 P PSYCHOSIS NOS 05/12/2008 IWONA GONZALEZ PHD 307.47 SI DYSSOMNIA NOS 05/12/2008 IWONA GONZALEZ PHD 345.90 EPILEPSY UNSPECIFIED WITHOUT INTRACTABLE EPILEPSY 05/12/2008 IWONA GONZALEZ PHD 298.9 P PSYCHOSIS NOS 05/12/2008 IWONA GONZALEZ PHD 307.47 SI DYSSOMNIA NOS 05/12/2008 IWONA GONZALEZ PHD 345.90 EPILEPSY UNSPECIFIED WITHOUT INTRACTABLE EPILEPSY 05/12/2008 AG RIBBON TIER, MARCE A 29 8.9 P PSYCHOSIS NOS 05/12/2008 AG RIBBON TIER, MARCE A 307.47 SI DYSSOMNIA NOS 05/12/2008 AG BENSON, MARCE A 345.90 EPILEPSY UNSPECIFIED WITHOUT INTRACTABLE EPILEPSY 05/12/2008 IWONA GONZALEZ PHD 298.9 P PSYCHOSIS NOS 05/12/2008 IWONA GONZALEZ PHD 307.47 SI DYSSOMNIA NOS 05/12/2008 IWONA GONZALEZ PHD 345.90 EPILEPSY UNSPECIFIED WITHOUT INTRACTABLE EPILEPSY 05/12/2008 IWONA GONZALEZ PHD 298.9 P PSYCHOSIS NOS 05/12/2008 IWONA GONZALEZ PHD 307.47 SI DYSSOMNIA NOS 05/12/2008 IWONA GONZALEZ PHD 345.90 EPILEPSY UNSPECIFIED WITHOUT INTRACTABLE EPILEPSY 05/12/2008 CHELSIE BERKOWITZ APRNINDA J 298.9 P PSYCHOSIS NOS 05/12/2008 WOO RIBBON TIER, ALVARADO J 307.47 SI DYSSOMNIA NOS 05/12/2008 WOO BENSON, ALVARADO J 345.90 EPILEPSY UNSPECIFIED WITHOUT INTRACTABLE EPILEPSY 05/12/2008 BOEKHOUT PHD, IWONA A 298.9 P PSYCHOSIS NOS 05/12/2008 LISA PHD, IWONA A 307.47 SI DYSSOMNIA NOS 05/12/2008 LISA SOUZA, IWONA Villarreal 345.90 EPILEPSY UNSPECIFIED WITHOUT INTRACTABLE EPILEPSY 05/12/2008 LISA SOUZA, IWONA A 298.9 P PSYCHOSIS NOS 05/12/2008 LISA SOUZA, IOWNA A 307.47 SI DYSSOMNIA NOS 05/12/2008 LISA SOUZA, IWONA A 345.90 EPILEPSY UNSPECIFIED WITHOUT INTRACTABLE EPILEPSY 05/12/2008 MALONEY DDS, ARLET 29 8.9 P PSYCHOSIS NOS 05/12/2008 MALONEY DDS, ARLET 307.47 SI DYSSOMNIA NOS 05/12/2008 MALONEY DDS, ARLET 345.90 EPILEPSY UNSPECIFIED WITHOUT INTRACTABLE EPILEPSY 05/12/2008 LISA SOUZA, IWONA A 298.9 P PSYCHOSIS NOS 05/12/2008 LISA SOUZA, IWONA Villarreal 307.47 SI DYSSOMNIA NOS 05/12/2008 LISA SOUZA, IWONA Villarreal 345.90 EPILEPSY UNSPECIFIED WITHOUT INTRACTABLE EPILEPSY 11/23/2008 MARY DOMINIQUE DO 312 .30 I IMPULSE CONTROL DISORDER NOS 11/23/2008 MARY DOMINIQUE DO 317 MILD MENTAL RETARDATION 11/23/2008 MARY DOMINIQUE DO 312 .30 I IMPULSE CONTROL DISORDER NOS 11/23/2008 MARY DOMINIQUE DO 317 MILD MENTAL RETARDATION 11/23/2008 IWONA GONZALEZ PHD 312.30 I IMPULSE CONTROL DISORDER NOS 11/23/2008 IWONA GONZALEZ PHD 3 17 MILD MENTAL RETARDATION 11/23/2008 312.30 I I mpulse Control Disorder Nos 11/23/2008 317 Mild M ental Retardation 11/23/2008 MARY DOMINIQUE DO 312 .30 I Impulse Control Disorder Nos 11/23/2008 MARY DOMINIQUE DO 317 Mild Mental Retardation 11/23/2008 MARY DOMINIQUE DO 312 .30 I Impulse Control Disorder Nos 11/23/2008 MARY DOMINIQUE DO 317 Mild Mental Retardation 11/23/2008 312.30 I I mpulse Control Disorder Nos 11/23/2008 317 Mild M ental Retardation 11/23/2008 312.30 I I mpulse Control Disorder Nos 11/23/2008 317 Mild M ental Retardation 11/23/2008 312.30 I I mpulse Control Disorder Nos 11/23/2008 317 Mild M ental Retardation 11/23/2008 312.30 I I mpulse Control Disorder Nos 11/23/2008 317 Mild M ental Retardation 11/23/2008 312.30 I I mpulse Control Disorder Nos 11/23/2008 317 Mild M ental Retardation 11/23/2008 312.30 I I mpulse Control Disorder Nos 11/23/2008 317 Mild M ental Retardation 11/23/2008 312.30 I I mpulse Control Disorder Nos 11/23/2008 317 Mild M ental Retardation 11/23/2008 312.30 I I mpulse Control Disorder Nos 11/23/2008 317 Mild M ental Retardation 11/23/2008 312.30 I I mpulse Control Disorder Nos 11/23/2008 317 Mild M ental Retardation 11/23/2008 IWONA GONZALEZ PHD 312.30 I Impulse Control Disorder Nos 11/23/2008 IWONA GONZALEZ PHD A 3 17 Mild Mental Retardation 11/23/2008 IWONA GONZALEZ PHD A 312.30 I Impulse Control Disorder Nos 11/23/2008 IWONA GONZALEZ PHD A 3 17 Mild Mental Retardation 11/23/2008 IWONA GONZALEZ PHD A 312.30 I Impulse Control Disorder Nos 11/23/2008 IWONA GONZALEZ PHD A 3 17 Mild Mental Retardation 11/23/2008 IWONA GONZALEZ PHD A 312.30 I Impulse Control Disorder Nos 11/23/2008 IWONA GONZALEZ PHD A 3 17 Mild Mental Retardation 11/23/2008 IWONA GONZALEZ PHD A 312.30 I Impulse Control Disorder Nos 11/23/2008 IWONA GONZALEZ PHD A 3 17 Mild Mental Retardation 11/23/2008 IWONA GONZALEZ PHD A 312.30 I Impulse Control Disorder Nos 11/23/2008 IWONA GONZALEZ PHD A 3 17 Mild Mental Retardation 11/23/2008 MELISA QUINN MD 312.3 0 I Impulse Control Disorder Nos 11/23/2008 MELISA QUINN MD 317 Mild Mental Retardation 11/23/2008 IWONA GONZALEZ PHD A 312.30 I Impulse Control Disorder Nos 11/23/2008 IWONA GONZALEZ PHD A 3 17 Mild Mental Retardation 11/23/2008 NIMESH TILLEY JR S 312.30 I Impulse Control Disorder Nos 11/23/2008 NIMESH TILLEY JR S 3 17 Mild Mental Retardation 11/23/2008 IWONA GONZALEZ PHD 312.30 I Impulse Control Disorder Nos 11/23/2008 IWONA GONZALEZ PHD 3 17 Mild Mental Retardation 11/23/2008 IWONA GONZALEZ PHD 312.30 I Impulse Control Disorder Nos 11/23/2008 IWONA GONZALEZ PHD 3 17 Mild Mental Retardation 11/23/2008 IWONA GONZALEZ PHD 312.30 I Impulse Control Disorder Nos 11/23/2008 IWONA GONZALEZ PHD 3 17 Mild Mental Retardation 11/23/2008 IWONA GONZALEZ PHD 312.30 I Impulse Control Disorder Nos 11/23/2008 IWONA GONZALEZ PHD 3 17 Mild Mental Retardation 11/23/2008 IWONA GONZALEZ PHD 312.30 I Impulse Control Disorder Nos 11/23/2008 IWONA GONZALEZ PHD 3 17 Mild Mental Retardation 11/23/2008 IWONA GONZALEZ PHD 312.30 I Impulse Control Disorder Nos 11/23/2008 IWONA GONZALEZ PHD 3 17 Mild Mental Retardation 11/23/2008 WOO BENSON, ALVARADO J 312.30 I Impulse Control Disorder Nos 11/23/2008 WOO BENSON ALVARADO J 317 Mild Mental Retardation 11/23/2008 WOO BENSON, ALVARADO J 312.30 I Impulse Control Disorder Nos 11/23/2008 WOO BENSON, ALVARADO J 317 Mild Mental Retardation 11/23/2008 IWONA GONZALEZ PHD 312.30 I Impulse Control Disorder Nos 11/23/2008 IWONA GONZALEZ PHD 3 17 Mild Mental Retardation 11/23/2008 WOO BENSON, ALVARADO J 312.30 I Impulse Control Disorder Nos 11/23/2008 WOO BENSON, ALVARADO J 317 Mild Mental Retardation 11/23/2008 IWONA GONZALEZ PHD 312.30 I Impulse Control Disorder Nos 11/23/2008 IWONA GONZALEZ PHD 3 17 Mild Mental Retardation 11/23/2008 WOO BENSON ALVARADO J 312.30 I Impulse Control Disorder Nos 11/23/2008 WOO BENSON ALVARADO J 317 Mild Mental Retardation 11/23/2008 IWONA GONZALEZ PHD 312.30 I Impulse Control Disorder Nos 11/23/2008 IWONA GONZALEZ PHD 3 17 Mild Mental Retardation 11/23/2008 KASIA PALMER APRN S 312.30 I Impulse Control Disorder Nos 11/23/2008 ESTELA BENSON, KASIA S 317 Mild Mental Retardation 11/23/2008 MALONEY DDS, ARLET 312.30 I Impulse Control Disorder Nos 11/23/2008 MALONEY DDS, ARLET 31 7 Mild Mental Retardation 11/23/2008 WOO BENSON, ALVARADO J 312.30 I Impulse Control Disorder Nos 11/23/2008 WOO BENSON, ALVARADO J 317 Mild Mental Retardation 11/23/2008 IWONA GONZALEZ PHD 312.30 I Impulse Control Disorder Nos 11/23/2008 IWONA GONZALEZ PHD 3 17 Mild Mental Retardation 11/23/2008 IWONA GONZALEZ PHD 312.30 I Impulse Control Disorder Nos 11/23/2008 IWONA GONZALEZ PHD 3 17 Mild Mental Retardation 11/23/2008 IWONA GONZALEZ PHD 312.30 I Impulse Control Disorder Nos 11/23/2008 IWONA GONZALEZ PHD 3 17 Mild Mental Retardation 11/23/2008 IWONA GONZALEZ PHD 312.30 I Impulse Control Disorder Nos 11/23/2008 IWONA GONZALEZ PHD 3 17 Mild Mental Retardation 11/23/2008 IWONA GONZALEZ PHD 312.30 I Impulse Control Disorder Nos 11/23/2008 IWONA GONZALEZ PHD 3 17 Mild Mental Retardation 11/23/2008 IWONA GONZALEZ PHD 312.30 I Impulse Control Disorder Nos 11/23/2008 IWONA GONZALEZ PHD 3 17 Mild Mental Retardation 11/23/2008 IWONA GONZALEZ PHD 312.30 I Impulse Control Disorder Nos 11/23/2008 IWONA GONZALEZ PHD 3 17 Mild Mental Retardation 11/23/2008 SARIAH STEVENSON MD 312 .30 I Impulse Control Disorder Nos 11/23/2008 SARIAH STEVENSON MD 317 Mild Mental Retardation 11/23/2008 IWONA GONZALEZ PHD 312.30 I Impulse Control Disorder Nos 11/23/2008 IWONA GONZALEZ PHD 3 17 Mild Mental Retardation 11/23/2008 ELVA GALVNI, SARIAH N 312 .30 I Impulse Control Disorder Nos 11/23/2008 ELVA GALVIN, SARIAH N 317 Mild Mental Retardation 11/23/2008 ALVARADO BERKOWITZ APRN J 312.30 I Impulse Control Disorder Nos 11/23/2008 WOO BENSON, ALVARADO J 317 Mild Mental Retardation 11/23/2008 IWONA GONZALEZ PHD 312.30 I Impulse Control Disorder Nos 11/23/2008 IWONA GONZALEZ PHD 3 17 Mild Mental Retardation 11/23/2008 ESTELA BENSON, KASIA S 312.30 I Impulse Control Disorder Nos 11/23/2008 ESTELA BENSON, KASIA S 317 Mild Mental Retardation 11/23/2008 ALVARADO BERKWOITZ APRN J 312.30 I Impulse Control Disorder Nos 11/23/2008 YANNICK BERKOWITZ APRNA J 317 Mild Mental Retardation 11/23/2008 IWONA GONZALEZ PHD 312.30 I Impulse Control Disorder Nos 11/23/2008 IWONA GONAZLEZ PHD 3 17 Mild Mental Retardation 11/23/2008 IWONA GONZALEZ PHD 312.30 I Impulse Control Disorder Nos 11/23/2008 IWONA GONZALEZ PHD 3 17 Mild Mental Retardation 11/23/2008 AGMARCE Cameron APRN A 312.30 I Impulse Control Disorder Nos 11/23/2008 AGNisha BENSON MARCE A 31 7 Mild Mental Retardation 11/23/2008 IWONA GONZALEZ PHD 312.30 I Impulse Control Disorder Nos 11/23/2008 IWONA GONZALEZ PHD 3 17 Mild Mental Retardation 11/23/2008 IWONA GONZALEZ PHD 312.30 I Impulse Control Disorder Nos 11/23/2008 IWONA GONZALEZ PHD 3 17 Mild Mental Retardation 11/23/2008 ALVARADO BERKOWITZ APRN J 312.30 I Impulse Control Disorder Nos 11/23/2008 ALVARADO BERKOWITZ APRN J 317 Mild Mental Retardation 11/23/2008 IWONA GONZALEZ PHD 312.30 I Impulse Control Disorder Nos 11/23/2008 IWONA GONZALEZ PHD 3 17 Mild Mental Retardation 11/23/2008 IWONA GONZALEZ PHD 312.30 I Impulse Control Disorder Nos 11/23/2008 IWONA GNOZALEZ PHD 3 17 Mild Mental Retardation 11/23/2008 MALONEY DDSARLET 312.30 I Impulse Control Disorder Nos 11/23/2008 MALONEY DDS, ARLET 31 7 Mild Mental Retardation 11/23/2008 IWONA GONZALEZ PHD 312.30 I Impulse Control Disorder Nos 11/23/2008 IWONA GONZALEZ PHD 3 17 Mild Mental Retardation 12/23/2008 MARY DOMINIQUE DO 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 12/23/2008 MARY DOMINIQUE DO 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 12/23/2008 IWONA GONZALEZ PHD 345.81 OTHER FORMS OF EPILEPSY AND RECURRENT SE IZURES WITH INTRACTABLE EPILEPSY 12/23/2008 345.81 OTH ER FORMS OF EPILEPSY AND RECURRENT SEIZURES WITH INTRACTABLE EPILEPSY 12/23/2008 MARY DOMINIQUE DO 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 12/23/2008 MARY DOMINIQUE DO 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 12/23/2008 345.81 OTH ER FORMS OF EPILEPSY AND RECURRENT SEIZURES WITH INTRACTABLE EPILEPSY 12/23/2008 345.81 OTH ER FORMS OF EPILEPSY AND RECURRENT SEIZURES WITH INTRACTABLE EPILEPSY 12/23/2008 345.81 OTH ER FORMS OF EPILEPSY AND RECURRENT SEIZURES WITH INTRACTABLE EPILEPSY 12/23/2008 345.81 OTH ER FORMS OF EPILEPSY AND RECURRENT SEIZURES WITH INTRACTABLE EPILEPSY 12/23/2008 345.81 OTH ER FORMS OF EPILEPSY AND RECURRENT SEIZURES WITH INTRACTABLE EPILEPSY 12/23/2008 345.81 OTH ER FORMS OF EPILEPSY AND RECURRENT SEIZURES WITH INTRACTABLE EPILEPSY 12/23/2008 345.81 OTH ER FORMS OF EPILEPSY AND RECURRENT SEIZURES WITH INTRACTABLE EPILEPSY 12/23/2008 345.81 OTH ER FORMS OF EPILEPSY AND RECURRENT SEIZURES WITH INTRACTABLE EPILEPSY 12/23/2008 345.81 OTH ER FORMS OF EPILEPSY AND RECURRENT SEIZURES WITH INTRACTABLE EPILEPSY 12/23/2008 IWONA GONZALEZ PHD 345.81 OTHER FORMS OF EPILEPSY AND RECURRENT SE IZURES WITH INTRACTABLE EPILEPSY 12/23/2008 IWONA GONZALEZ PHD 345.81 OTHER FORMS OF EPILEPSY AND RECURRENT SE IZURES WITH INTRACTABLE EPILEPSY 12/23/2008 IWONA GONZALEZ PHD 345.81 OTHER FORMS OF EPILEPSY AND RECURRENT SE IZURES WITH INTRACTABLE EPILEPSY 12/23/2008 [facility] IWONA SOUZA 345.81 OTHER FORMS OF EPILEPSY AND RECURRENT SE IZURES WITH INTRACTABLE EPILEPSY 12/23/2008 [facility] IWONA SOUZA 345.81 OTHER FORMS OF EPILEPSY AND RECURRENT SE IZURES WITH INTRACTABLE EPILEPSY 12/23/2008 [facility] IWONA SOUZA 345.81 OTHER FORMS OF EPILEPSY AND RECURRENT SE IZURES WITH INTRACTABLE EPILEPSY 12/23/2008 [place] GALVIN, MELISA 345.8 1 OTHER FORMS OF EPILEPSY AND RECURRENT SEIZURES WITH INTRACTABLE EPILEPSY 12/23/2008 [facility] IWONA SOUZA 345.81 OTHER FORMS OF EPILEPSY AND RECURRENT SE IZURES WITH INTRACTABLE EPILEPSY 12/23/2008 NIMESH TILLEY JR 345.81 OTHER FORMS OF EPILEPSY AND RECURRENT SE IZURES WITH INTRACTABLE EPILEPSY 12/23/2008 [facility] IWONA SOUZA 345.81 OTHER FORMS OF EPILEPSY AND RECURRENT SE IZURES WITH INTRACTABLE EPILEPSY 12/23/2008 [facility] , IWONA Villarreal 345.81 OTHER FORMS OF EPILEPSY AND RECURRENT SE IZURES WITH INTRACTABLE EPILEPSY 12/23/2008 [facility] IWONA SOUZA 345.81 OTHER FORMS OF EPILEPSY AND RECURRENT SE IZURES WITH INTRACTABLE EPILEPSY 12/23/2008 [facility] IWONA SOUZA 345.81 OTHER FORMS OF EPILEPSY AND RECURRENT SE IZURES WITH INTRACTABLE EPILEPSY 12/23/[facility]OU[facility] 345.81 OTHER FORMS OF EPILEPSY AND RECURRENT SE IZURES WITH INTRACTABLE EPILEPSY 12/23/2008 [facility] IWONA SOUZA 345.81 OTHER FORMS OF EPILEPSY AND RECURRENT SE IZURES WITH INTRACTABLE EPILEPSY 12/23/2008 ALVARADO BERKOWITZ APRN 345.81 OTHER FORMS OF EPILEPSY AND RECURRENT SE IZURES WITH INTRACTABLE EPILEPSY 12/23/2008 ALVARADO BERKOWITZ APRN 345.81 OTHER FORMS OF EPILEPSY AND RECURRENT SE IZURES WITH INTRACTABLE EPILEPSY 12/23/2008 [facility] IWONA SOUZA 345.81 OTHER FORMS OF EPILEPSY AND RECURRENT SE IZURES WITH INTRACTABLE EPILEPSY 12/23/2008 ALVARADO BERKOWITZ APRN 345.81 OTHER FORMS OF EPILEPSY AND RECURRENT SE IZURES WITH INTRACTABLE EPILEPSY 12/23/2008 ELLYIWONA ANTUNEZ PHD 345.81 OTHER FORMS OF EPILEPSY AND RECURRENT SE IZURES WITH INTRACTABLE EPILEPSY 12/23/2008 ALVARADO BERKOWITZ APRN 345.81 OTHER FORMS OF EPILEPSY AND RECURRENT SE IZURES WITH INTRACTABLE EPILEPSY 12/23/2008 [facility] IWONA SOUZA A 345.81 OTHER FORMS OF EPILEPSY AND RECURRENT SE IZURES WITH INTRACTABLE EPILEPSY 12/23/2008 KASIA PALMER APRN 345.81 OTHER FORMS OF EPILEPSY AND RECURRENT SE IZURES WITH INTRACTABLE EPILEPSY 12/23/2008 ARLET MALONEY DDS 345.81 OTHER FORMS OF EPILEPSY AND RECURRENT SE IZURES WITH INTRACTABLE EPILEPSY 12/23/2008 ALVARADO BERKOWITZ APRN 345.81 OTHER FORMS OF EPILEPSY AND RECURRENT SE IZURES WITH INTRACTABLE EPILEPSY 12/23/2008 [facility] IWONA SOUZA A 345.81 OTHER FORMS OF EPILEPSY AND RECURRENT SE IZURES WITH INTRACTABLE EPILEPSY 12/23/2008 [facility] IWONA SOUZA A 345.81 OTHER FORMS OF EPILEPSY AND RECURRENT SE IZURES WITH INTRACTABLE EPILEPSY 12/23/2008 [facility] IWONA SOUZA A 345.81 OTHER FORMS OF EPILEPSY AND RECURRENT SE IZURES WITH INTRACTABLE EPILEPSY 12/23/[facility]WONA SOU[facility] A 345.81 OTHER FORMS OF EPILEPSY AND RECURRENT SE IZURES WITH INTRACTABLE EPILEPSY 12/23/2008 [facility] IWONA SOUZA A 345.81 OTHER FORMS OF EPILEPSY AND RECURRENT SE IZURES WITH INTRACTABLE EPILEPSY 12/23/2008 [facility] IWONA SOUZA A 345.81 OTHER FORMS OF EPILEPSY AND RECURRENT SE IZURES WITH INTRACTABLE EPILEPSY 12/23/2008 [facility] IWONA SOUZA A 345.81 OTHER FORMS OF EPILEPSY AND RECURRENT SE IZURES WITH INTRACTABLE EPILEPSY 12/23/2008 SARIAH STEVENSON MD 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 12/23/2008 [facility] IWONA SOUZA A 345.81 OTHER FORMS OF EPILEPSY AND RECURRENT SE IZURES WITH INTRACTABLE EPILEPSY 12/23/2008 SARIAH STEVENSON MD 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 12/23/2008 ALVARADO BERKOWITZ APRN 345.81 OTHER FORMS OF EPILEPSY AND RECURRENT SE IZURES WITH INTRACTABLE EPILEPSY 12/23/2008 [facility] IWONA SOUZA A 345.81 OTHER FORMS OF EPILEPSY AND RECURRENT SE IZURES WITH INTRACTABLE EPILEPSY 12/23/2008 KASIA PALMER APRN 345.81 OTHER FORMS OF EPILEPSY AND RECURRENT SE IZURES WITH INTRACTABLE EPILEPSY 12/23/2008 ALVARADO BERKOWITZ APRN 345.81 OTHER FORMS OF EPILEPSY AND RECURRENT SE IZURES WITH INTRACTABLE EPILEPSY 12/23/2008 IWONA GONZALEZ PHD 345.81 OTHER FORMS OF EPILEPSY AND RECURRENT SE IZURES WITH INTRACTABLE EPILEPSY 12/23/2008 IWONA GONZALEZ PHD 345.81 OTHER FORMS OF EPILEPSY AND RECURRENT SE IZURES WITH INTRACTABLE EPILEPSY 12/23/2008 MARCE ULONG APRN 345.81 OTHER FORMS OF EPILEPSY AND RECURRENT SE IZURES WITH INTRACTABLE EPILEPSY 12/23/2008 IWONA GONZALEZ PHD 345.81 OTHER FORMS OF EPILEPSY AND RECURRENT SE IZURES WITH INTRACTABLE EPILEPSY 12/23/2008 IWONA GONZALEZ PHD 345.81 OTHER FORMS OF EPILEPSY AND RECURRENT SE IZURES WITH INTRACTABLE EPILEPSY 12/23/2008 ALVARADO BERKOWITZ APRN 345.81 OTHER FORMS OF EPILEPSY AND RECURRENT SE IZURES WITH INTRACTABLE EPILEPSY 12/23/2008 IWONA GONZALEZ PHD 345.81 OTHER FORMS OF EPILEPSY AND RECURRENT SE IZURES WITH INTRACTABLE EPILEPSY 12/23/2008 IWONA GONZALEZ PHD 345.81 OTHER FORMS OF EPILEPSY AND RECURRENT SE IZURES WITH INTRACTABLE EPILEPSY 12/23/2008 ARLET MALONEY DDS 345.81 OTHER FORMS OF EPILEPSY AND RECURRENT SE IZURES WITH INTRACTABLE EPILEPSY 12/23/2008 IWONA GONZALEZ PHD 345.81 OTHER FORMS OF EPILEPSY AND RECURRENT SE IZURES WITH INTRACTABLE EPILEPSY 09/02/2009 MARY DOMINIQUE DO 311 MO DEPRESS NOS 09/02/2009 MARY DOMINIQUE DO 311 MO DEPRESS NOS 09/02/2009 IOWNA GONZALEZ PHD 3 11 MO DEPRESS NOS 09/02/2009 311 MO DEP RESS NOS 09/02/2009 MARY DOMINIQUE DO 311 MO DEPRESS NOS 09/02/2009 MARY DOMINIQUE DO F 311 MO DEPRESS NOS 09/02/2009 311 MO DEP RESS NOS 09/02/2009 311 MO DEP RESS NOS 09/02/2009 311 MO DEP RESS NOS 09/02/2009 311 MO DEP RESS NOS 09/02/2009 311 MO DEP RESS NOS 09/02/2009 311 MO DEP RESS NOS 09/02/2009 311 MO DEP RESS NOS 09/02/2009 311 MO DEP RESS NOS 09/02/2009 311 MO DEP RESS NOS 09/02/2009 IWONA GONZALEZ PHD 3 11 MO DEPRESS NOS 09/02/2009 LISA PHD, IWONA A 3 11 MO DEPRESS NOS 09/02/2009 BOEAKILA PHD, IWONA A 3 11 MO DEPRESS NOS 09/02/2009 BOEAKILA PHD, IWONA A 3 11 MO DEPRESS NOS 09/02/2009 BOEANUELOUT PHD, IWONA A 3 11 MO DEPRESS NOS 09/02/2009 BOEANUELOUT PHD, IWONA A 3 11 MO DEPRESS NOS 09/02/2009 MELISA QUINN MD 311 MO DEPRESS NOS 09/02/2009 BOEANUELOUT PHD, IWONA A 3 11 MO DEPRESS NOS 09/02/2009 NIMESH TILLEY JR 3 11 MO DEPRESS NOS 09/02/2009 BOEANUELOUT PHD, IWONA A 3 11 MO DEPRESS NOS 09/02/2009 LISA PHD, IWONA A 3 11 MO DEPRESS NOS 09/02/2009 BOEAKILA PHD, IWONA A 3 11 MO DEPRESS NOS 09/02/2009 LISA PHD, IWONA A 3 11 MO DEPRESS NOS 09/02/2009 LISA PHD, IWONA A 3 11 MO DEPRESS NOS 09/02/2009 LISA PHD, IWONA A 3 11 MO DEPRESS NOS 09/02/2009 WOO BENSON, ALVARADO J 311 MO DEPRESS NOS 09/02/2009 WOO BENSON, ALVARADO J 311 MO DEPRESS NOS 09/02/2009 LISA PHD, IWONA A 3 11 MO DEPRESS NOS 09/02/2009 WOO BENSON, ALVARADO J 311 MO DEPRESS NOS 09/02/2009 LISA PHD, IWONA A 3 11 MO DEPRESS NOS 09/02/2009 WOO BENSON, ALVARADO J 311 MO DEPRESS NOS 09/02/2009 LISA PHD, IWONA A 3 11 MO DEPRESS NOS 09/02/2009 KASIA PALMER APRN 311 MO DEPRESS NOS 09/02/2009 ARLET MALONEY DDS 31 1 MO DEPRESS NOS 09/02/2009 WOO BENSON, ALVARADO J 311 MO DEPRESS NOS 09/02/2009 LISA PHD, IWONA A 3 11 MO DEPRESS NOS 09/02/2009 LISA PHD, IWONA A 3 11 MO DEPRESS NOS 09/02/2009 LISA PHD, IWONA A 3 11 MO DEPRESS NOS 09/02/2009 LISA PHD, IWONA A 3 11 MO DEPRESS NOS 09/02/2009 LISA PHD, IWONA A 3 11 MO DEPRESS NOS 09/02/2009 BOEANUELOUT PHD, IWONA A 3 11 MO DEPRESS NOS 09/02/2009 BOEANUELOUT PHD, IWONA A 3 11 MO DEPRESS NOS 09/02/2009 ELVA GALVIN, SARIAH N 311 MO DEPRESS NOS 09/02/2009 BOEANUELOUT PHD, IWONA A 3 11 MO DEPRESS NOS 09/02/2009 ELVA GALVIN, SARIAH N 311 MO DEPRESS NOS 09/02/2009 WOO RIBBON TIER, ALVARADO J 311 MO DEPRESS NOS 09/02/2009 BOEANUELOUT PHD, IWONA A 3 11 MO DEPRESS NOS 09/02/2009 ESTELA RIBBON TIER, KASIA S 311 MO DEPRESS NOS 09/02/2009 WOO RIBBON TIER, ALVARADO J 311 MO DEPRESS NOS 09/02/2009 [email or web address], IWONA A 3 11 MO DEPRESS NOS 09/02/2009 [facility] PH[facility], IWONA A 3 11 MO DEPRESS NOS 09/02/2009 AG RIBBON TIER, MARCE A 31 1 MO DEPRESS NOS 09/02/2009 LISA PHD, IWONA A 3 11 MO DEPRESS NOS 09/02/2009 [facility] PHD, IWONA A 3 11 MO DEPRESS NOS 09/02/2009 WOO RIBBON TIER, ALVARADO J 311 MO DEPRESS NOS 09/02/2009 LISA PHD, IWONA A 3 11 MO DEPRESS NOS 09/02/2009 [email or web address] PHD, IWONA A 3 11 MO DEPRESS NOS 09/02/2009 ARLET MALONEY DDS 31 1 MO DEPRESS NOS 09/02/2009 [facility], IWONA A 3 11 MO DEPRESS NOS 10/20/2009 MARY DOMINIQUE DO V01 .9 CONTACT WITH OR EXPOSURE TO UNSPECIFIED COMMUNICABLE DISEASE 10/20/2009 MARY DOMINIQUE DO V01 .9 CONTACT WITH OR EXPOSURE TO UNSPECIFIED COMMUNICABLE DISEASE 10/20/2009 LISA SOUZA, IWONA Villarreal V01.9 CONTACT WITH OR EXPOSURE TO UNSPECIFIED COMMUNICABLE D ISEASE 10/20/2009 V01.9 CONT ACT WITH OR EXPOSURE TO UNSPECIFIED COMMUNICABLE DISEASE 10/20/2009 MARY DOMINIQUE DO V01 .9 CONTACT WITH OR EXPOSURE TO UNSPECIFIED COMMUNICABLE DISEASE 10/20/2009 MARY DOMINIQUE DO V01 .9 CONTACT WITH OR EXPOSURE TO UNSPECIFIED COMMUNICABLE DISEASE 10/20/2009 V01.9 CONT ACT WITH OR EXPOSURE TO UNSPECIFIED COMMUNICABLE DISEASE 10/20/2009 V01.9 CONT ACT WITH OR EXPOSURE TO UNSPECIFIED COMMUNICABLE DISEASE 10/20/2009 V01.9 CONT ACT WITH OR EXPOSURE TO UNSPECIFIED COMMUNICABLE DISEASE 10/20/2009 V01.9 CONT ACT WITH OR EXPOSURE TO UNSPECIFIED COMMUNICABLE DISEASE 10/20/2009 V01.9 CONT ACT WITH OR EXPOSURE TO UNSPECIFIED COMMUNICABLE DISEASE 10/20/2009 V01.9 CONT ACT WITH OR EXPOSURE TO UNSPECIFIED COMMUNICABLE DISEASE 10/20/2009 V01.9 CONT ACT WITH OR EXPOSURE TO UNSPECIFIED COMMUNICABLE DISEASE 10/20/2009 V01.9 CONT ACT WITH OR EXPOSURE TO UNSPECIFIED COMMUNICABLE DISEASE 10/20/2009 V01.9 CONT ACT WITH OR EXPOSURE TO UNSPECIFIED COMMUNICABLE DISEASE 10/20/2009 LISA SOUZA, IWONA Villarreal V01.9 CONTACT WITH OR EXPOSURE TO UNSPECIFIED COMMUNICABLE D ISEASE 10/20/2009 LISA SOUZA, IWONA Villarreal V01.9 CONTACT WITH OR EXPOSURE TO UNSPECIFIED COMMUNICABLE D ISEASE 10/20/2009 LISA SOUZA, IWONA Villarreal V01.9 CONTACT WITH OR EXPOSURE TO UNSPECIFIED COMMUNICABLE D ISEASE 10/20/2009 LISA SOUZA, IWONA Villarreal V01.9 CONTACT WITH OR EXPOSURE TO UNSPECIFIED COMMUNICABLE D ISEASE 10/20/2009 LISA SOUZA, IWONA Villarreal V01.9 CONTACT WITH OR EXPOSURE TO UNSPECIFIED COMMUNICABLE D ISEASE 10/20/2009 LISA SOUZA, IWONA Villarreal V01.9 CONTACT WITH OR EXPOSURE TO UNSPECIFIED COMMUNICABLE D ISEASE 10/20/2009 MELISA QUINN MD V01.9 CONTACT WITH OR EXPOSURE TO UNSPECIFIED COMMUNICABLE DISEASE 10/20/2009 LISA SOUZA, IWONA Villarreal V01.9 CONTACT WITH OR EXPOSURE TO UNSPECIFIED COMMUNICABLE D ISEASE 10/20/2009 NIMESH TILLEY JR V01.9 CONTACT WITH OR EXPOSURE TO UNSPECIFIED COMMUNICABLE D ISEASE 10/20/2009 LISA SOUZA, IWONA Villarreal V01.9 CONTACT WITH OR EXPOSURE TO UNSPECIFIED COMMUNICABLE D ISEASE 10/20/2009 LISA SOUZA, IWONA Villarreal V01.9 CONTACT WITH OR EXPOSURE TO UNSPECIFIED COMMUNICABLE D ISEASE 10/20/2009 LISA SOUZA, IWONA Villarreal V01.9 CONTACT WITH OR EXPOSURE TO UNSPECIFIED COMMUNICABLE D ISEASE 10/20/2009 IWONA GONZALEZ PHD V01.9 CONTACT WITH OR EXPOSURE TO UNSPECIFIED COMMUNICABLE D ISEASE 10/20/2009 IWONA GONZALEZ PHD V01.9 CONTACT WITH OR EXPOSURE TO UNSPECIFIED COMMUNICABLE D ISEASE 10/20/2009 IWONA GONZALEZ PHD V01.9 CONTACT WITH OR EXPOSURE TO UNSPECIFIED COMMUNICABLE D ISEASE 10/20/2009 ALVARADO BERKOWITZ APRN V01.9 CONTACT WITH OR EXPOSURE TO UNSPECIFIED COMMUNICABLE D ISEASE 10/20/2009 ALVARADO BERKOWITZ APRN V01.9 CONTACT WITH OR EXPOSURE TO UNSPECIFIED COMMUNICABLE D ISEASE 10/20/2009 IWONA GONZALEZ PHD V01.9 CONTACT WITH OR EXPOSURE TO UNSPECIFIED COMMUNICABLE D ISEASE 10/20/2009 ALVARADO BERKOWITZ APRN V01.9 CONTACT WITH OR EXPOSURE TO UNSPECIFIED COMMUNICABLE D ISEASE 10/20/2009 IWONA GONZALEZ PHD V01.9 CONTACT WITH OR EXPOSURE TO UNSPECIFIED COMMUNICABLE D ISEASE 10/20/2009 ALVARADO BERKOWITZ APRN V01.9 CONTACT WITH OR EXPOSURE TO UNSPECIFIED COMMUNICABLE D ISEASE 10/20/2009 IWONA GONZALEZ PHD V01.9 CONTACT WITH OR EXPOSURE TO UNSPECIFIED COMMUNICABLE D ISEASE 10/20/2009 KASIA PALMER APRN V01.9 CONTACT WITH OR EXPOSURE TO UNSPECIFIED COMMUNICABLE D ISEASE 10/20/2009 ARLET MALONEY DDS V0 1.9 CONTACT WITH OR EXPOSURE TO UNSPECIFIED COMMUNICABLE DISEASE 10/20/2009 ALVARADO BERKOWITZ APRN V01.9 CONTACT WITH OR EXPOSURE TO UNSPECIFIED COMMUNICABLE D ISEASE 10/20/2009 IWONA GONZALEZ PHD V01.9 CONTACT WITH OR EXPOSURE TO UNSPECIFIED COMMUNICABLE D ISEASE 10/20/2009 IWONA GONZLAEZ PHD V01.9 CONTACT WITH OR EXPOSURE TO UNSPECIFIED COMMUNICABLE D ISEASE 10/20/2009 IWONA GONZALEZ PHD V01.9 CONTACT WITH OR EXPOSURE TO UNSPECIFIED COMMUNICABLE D ISEASE 10/20/2009 IWONA GONZALEZ PHD V01.9 CONTACT WITH OR EXPOSURE TO UNSPECIFIED COMMUNICABLE D ISEASE 10/20/2009 LISA SOUZA, IWONA A V01.9 CONTACT WITH OR EXPOSURE TO UNSPECIFIED COMMUNICABLE D ISEASE 10/20/2009 LISA SOUZA, IWONA Villarreal V01.9 CONTACT WITH OR EXPOSURE TO UNSPECIFIED COMMUNICABLE D ISEASE 10/20/2009 LISA SOUZA, IWONA Villarreal V01.9 CONTACT WITH OR EXPOSURE TO UNSPECIFIED COMMUNICABLE D ISEASE 10/20/2009 ELVA GALVIN, SARIAH Cameron V01 .9 CONTACT WITH OR EXPOSURE TO UNSPECIFIED COMMUNICABLE DISEASE 10/20/2009 LISA SOUZA, IWONA Villarreal V01.9 CONTACT WITH OR EXPOSURE TO UNSPECIFIED COMMUNICABLE D ISEASE 10/20/2009 SARIAH STEVENSON MD V01 .9 CONTACT WITH OR EXPOSURE TO UNSPECIFIED COMMUNICABLE DISEASE 10/20/2009 ALVARADO BERKOWITZ APRN V01.9 CONTACT WITH OR EXPOSURE TO UNSPECIFIED COMMUNICABLE D ISEASE 10/20/2009 LISA SOUZA, IWONA Villarreal V01.9 CONTACT WITH OR EXPOSURE TO UNSPECIFIED COMMUNICABLE D ISEASE 10/20/2009 KASIA PALMER APRN V01.9 CONTACT WITH OR EXPOSURE TO UNSPECIFIED COMMUNICABLE D ISEASE 10/20/2009 ALVARADO BERKOWITZ APRN V01.9 CONTACT WITH OR EXPOSURE TO UNSPECIFIED COMMUNICABLE D ISEASE 10/20/2009 LISA SOUZA, IWONA Villarreal V01.9 CONTACT WITH OR EXPOSURE TO UNSPECIFIED COMMUNICABLE D ISEASE 10/20/2009 LISA SOUZA, IWONA Villarreal V01.9 CONTACT WITH OR EXPOSURE TO UNSPECIFIED COMMUNICABLE D ISEASE 10/20/2009 MARCE LUONG APRN V0 1.9 CONTACT WITH OR EXPOSURE TO UNSPECIFIED COMMUNICABLE DISEASE 10/20/2009 LISA SOUZA, IWONA Villarreal V01.9 CONTACT WITH OR EXPOSURE TO UNSPECIFIED COMMUNICABLE D ISEASE 10/20/2009 LISA SOUZA, IWONA Villarreal V01.9 CONTACT WITH OR EXPOSURE TO UNSPECIFIED COMMUNICABLE D ISEASE 10/20/2009 ALVARADO BERKOWITZ APRN V01.9 CONTACT WITH OR EXPOSURE TO UNSPECIFIED COMMUNICABLE D ISEASE 10/20/2009 IWONA GONZALEZ PHD V01.9 CONTACT WITH OR EXPOSURE TO UNSPECIFIED COMMUNICABLE D ISEASE 10/20/2009 LISA SOUZA, IWONA Villarreal V01.9 CONTACT WITH OR EXPOSURE TO UNSPECIFIED COMMUNICABLE D ISEASE 10/20/2009 MALONEY DDS, ARLET V0 1.9 CONTACT WITH OR EXPOSURE TO UNSPECIFIED COMMUNICABLE DISEASE 10/20/2009 LISA SOUZA, IWONA Villarreal V01.9 CONTACT WITH OR EXPOSURE TO UNSPECIFIED COMMUNICABLE D ISEASE 07/24/2010 MARY DOMINIQUE DO V70 .0 GENERAL MEDICAL EXAM, ROUTINE, AT HEALTH CARE FACILITY 07/24/2010 MARY DOMINIQUE DO V70 .0 GENERAL MEDICAL EXAM, ROUTINE, AT HEALTH CARE FACILITY 07/24/2010 IWONA GONZALEZ PHD V70.0 GENERAL MEDICAL EXAM, ROUTINE, AT HEALTH CARE FACILITY 07/24/2010 V70.0 GENE RAL MEDICAL EXAM, ROUTINE, AT HEALTH CARE FACILITY 07/24/2010 MARY DOMINIQUE DO V70 .0 GENERAL MEDICAL EXAM, ROUTINE, AT HEALTH CARE FACILITY 07/24/2010 MARY DOMINIQUE DO V70 .0 GENERAL MEDICAL EXAM, ROUTINE, AT HEALTH CARE FACILITY 07/24/2010 V70.0 GENE RAL MEDICAL EXAM, ROUTINE, AT HEALTH CARE FACILITY 07/24/2010 V70.0 GENE RAL MEDICAL EXAM, ROUTINE, AT HEALTH CARE FACILITY 07/24/2010 V70.0 GENE RAL MEDICAL EXAM, ROUTINE, AT HEALTH CARE FACILITY 07/24/2010 V70.0 GENE RAL MEDICAL EXAM, ROUTINE, AT HEALTH CARE FACILITY 07/24/2010 V70.0 GENE RAL MEDICAL EXAM, ROUTINE, AT HEALTH CARE FACILITY 07/24/2010 V70.0 GENE RAL MEDICAL EXAM, ROUTINE, AT HEALTH CARE FACILITY 07/24/2010 V70.0 GENE RAL MEDICAL EXAM, ROUTINE, AT HEALTH CARE FACILITY 07/24/2010 V70.0 GENE RAL MEDICAL EXAM, ROUTINE, AT HEALTH CARE FACILITY 07/24/2010 V70.0 GENE RAL MEDICAL EXAM, ROUTINE, AT HEALTH CARE FACILITY 07/24/2010 IWONA GONZALEZ PHD V70.0 GENERAL MEDICAL EXAM, ROUTINE, AT HEALTH CARE FACILITY 07/24/2010 IWONA GONZALEZ PHD V70.0 GENERAL MEDICAL EXAM, ROUTINE, AT HEALTH CARE FACILITY 07/24/2010 IWONA GONZALEZ PHD V70.0 GENERAL MEDICAL EXAM, ROUTINE, AT HEALTH CARE FACILITY 07/24/2010 BOEKHOUT PHD, IWONA A V70.0 GENERAL MEDICAL EXAM, ROUTINE, AT HEALTH CARE FACILITY 07/24/2010 LISA SOUZA, IWONA A V70.0 GENERAL MEDICAL EXAM, ROUTINE, AT HEALTH CARE FACILITY 07/24/2010 LISA SOUZA, IWONA A V70.0 GENERAL MEDICAL EXAM, ROUTINE, AT HEALTH CARE FACILITY 07/24/2010 MELISA QUINN MD V70.0 GENERAL MEDICAL EXAM, ROUTINE, AT HEALTH CARE FACILITY 07/24/2010 LISA SOUZA, IWONA A V70.0 GENERAL MEDICAL EXAM, ROUTINE, AT HEALTH CARE FACILITY 07/24/2010 NIMESH TILLEY JR V70.0 GENERAL MEDICAL EXAM, ROUTINE, AT HEALTH CARE FACILITY 07/24/2010 IWONA GONZALEZ PHD A V70.0 GENERAL MEDICAL EXAM, ROUTINE, AT HEALTH CARE FACILITY 07/24/2010 LISA SOUZA, IWONA A V70.0 GENERAL MEDICAL EXAM, ROUTINE, AT HEALTH CARE FACILITY 07/24/2010 IWONA GONZALEZ PHD A V70.0 GENERAL MEDICAL EXAM, ROUTINE, AT HEALTH CARE FACILITY 07/24/2010 IWONA GONZALEZ PHD A V70.0 GENERAL MEDICAL EXAM, ROUTINE, AT HEALTH CARE FACILITY 07/24/2010 IWONA GONZALEZ PHD A V70.0 GENERAL MEDICAL EXAM, ROUTINE, AT HEALTH CARE FACILITY 07/24/2010 IWONA GONZALEZ PHD A V70.0 GENERAL MEDICAL EXAM, ROUTINE, AT HEALTH CARE FACILITY 07/24/2010 ALVARADO BERKOWITZ APRN V70.0 GENERAL MEDICAL EXAM, ROUTINE, AT HEALTH CARE FACILITY 07/24/2010 ALVARADO BERKOWITZ APRN V70.0 GENERAL MEDICAL EXAM, ROUTINE, AT HEALTH CARE FACILITY 07/24/2010 IWONA GONZALEZ PHD A V70.0 GENERAL MEDICAL EXAM, ROUTINE, AT HEALTH CARE FACILITY 07/24/2010 ALVARADO BERKOWITZ APRN V70.0 GENERAL MEDICAL EXAM, ROUTINE, AT HEALTH CARE FACILITY 07/24/2010 IWONA GONZALEZ PHD A V70.0 GENERAL MEDICAL EXAM, ROUTINE, AT HEALTH CARE FACILITY 07/24/2010 ALVARADO BERKOWITZ APRN V70.0 GENERAL MEDICAL EXAM, ROUTINE, AT HEALTH CARE FACILITY 07/24/2010 IWONA GONZALEZ PHD A V70.0 GENERAL MEDICAL EXAM, ROUTINE, AT HEALTH CARE FACILITY 07/24/2010 KASIA PALMER APRN V70.0 GENERAL MEDICAL EXAM, ROUTINE, AT HEALTH CARE FACILITY 07/24/2010 ARLET MALONEY DDS V7 0.0 GENERAL MEDICAL EXAM, ROUTINE, AT HEALTH CARE FACILITY 07/24/2010 ALVARADO BERKOWITZ APRN V70.0 GENERAL MEDICAL EXAM, ROUTINE, AT HEALTH [facility]ARE FACILITY 07/24/2010 LISA SOUZA, IWONA A V70.0 GENERAL MEDICAL EXAM, ROUTINE, AT HEALTH [facility]ARE FACILITY 07/24/2010 LISA PHD, IWONA A V70.0 GENERAL MEDICAL EXAM, ROUTINE, AT [facility]ALTH [facility]ARE [facility]ILITY 07/24/2010 LISA PHD, IWONA A V70.0 GENERAL MEDICAL EXAM, ROUTINE, AT [facility]ALTH [facility]ARE [facility]ILITY 07/24/2010 LISA PHD, IWONA A V70.0 GENERAL MEDICAL EXAM, ROUTINE, AT [facility]ALTH [facility]ARE [facility]ILITY 07/24/2010 LISA SOUZA, IWONA A V70.0 GENERAL MEDICAL EXAM, ROUTINE, AT [facility]ALTH [facility]ARE [facility]ILITY 07/24/2010 LISA SOUZA, IWONA A V70.0 GENERAL MEDICAL EXAM, ROUTINE, AT [facility]ALTH [facility]ARE [facility]ILITY 07/24/2010 LISA SOUZA, IWONA A V70.0 GENERAL MEDICAL EXAM, ROUTINE, AT [facility]ALTH [facility]ARE [facility]ILITY 07/24/2010 SARIAH STEVENSON MD V70 .0 GENERAL MEDICAL EXAM, ROUTINE, AT [facility]ALTH [facility]ARE [facility]ILITY 07/24/2010 LISA SOUZA, IWONA A V70.0 GENERAL MEDICAL EXAM, ROUTINE, AT [facility]ALTH [facility]ARE [facility]ILITY 07/24/2010 SARIAH STEVENSON MD V70 .0 GENERAL MEDICAL EXAM, ROUTINE, AT [facility]ALTH [facility]ARE [facility]ILITY 07/24/2010 ALVARADO BERKOWITZ APRN V70.0 GENERAL MEDICAL EXAM, ROUTINE, AT [facility]ARE [facility] 07/24/2010 LISA SOUZA, IWONA A V70.0 GENERAL MEDICAL EXAM, ROUTINE, AT [facility]ARE [facility] 07/24/2010 KASIA PALMER APRN V70.0 GENERAL MEDICAL EXAM, ROUTINE, AT [facility]ARE [facility]ILITY 07/24/2010 ALVARADO BERKOWITZ APRN V70.0 GENERAL MEDICAL EXAM, ROUTINE, AT [facility]ARE [facility] 07/24/2010 LISA SOUZA, IWONA A V70.0 GENERAL MEDICAL EXAM, ROUTINE, AT [facility]ARE [facility] 07/24/2010 LISA SOUZA, IWONA A V70.0 GENERAL MEDICAL EXAM, ROUTINE, AT [facility]ARE [facility]ILITY 07/24/2010 AG BENSON, MARCE A V7 0.0 GENERAL MEDICAL EXAM, ROUTINE, AT [facility]ALTH [facility]ARE [facility]ILITY 07/24/2010 LISA PHD, IWONA A V70.0 GENERAL MEDICAL EXAM, ROUTINE, AT [facility]ALTH [facility]ARE [facility]ILITY 07/24/2010 LISA PHD, IWONA Villarreal V70.0 GENERAL MEDICAL EXAM, ROUTINE, AT [facility]ALTH [facility]ARE [facility]ILITY 07/24/2010 ALVARADO BERKOWITZ APRN V70.0 GENERAL MEDICAL EXAM, ROUTINE, AT [facility]ALTH [facility]ARE [facility]ILITY 07/24/2010 LISA PHD, IWONA Villarreal V70.0 GENERAL MEDICAL EXAM, ROUTINE, AT [facility]ALTH [facility]ARE [facility]ILITY 07/24/2010 LISA PHD, IWONA Villarreal V70.0 GENERAL MEDICAL EXAM, ROUTINE, AT [facility]ALTH [facility]ARE [facility]ILITY 07/24/2010 AMARA TRACEY ARLET V7 0.0 GENERAL MEDICAL EXAM, ROUTINE, AT [facility]ALTH [facility]ARE F[facility]ILITY 07/24/2010 LISA SOUZA, IWONA Villarreal V70.0 GENERAL MEDICAL EXAM, ROUTINE, AT HEALTH CARE FACILITY 08/21/2010 MARY DOMINIQUE DO V58 .69 LONG-TERM (CURRENT) USE OF OTHER MEDICATIONS 08/21/2010 MARY DOMINIQUE DO V58 .69 LONG-TERM (CURRENT) USE OF OTHER MEDICATIONS 08/21/2010 IWONA GONZALEZ PHD V58.69 LONG-TERM (CURRENT) USE OF OTHER MEDICATIONS 08/21/2010 V58.69 EMANI G-TERM (CURRENT) USE OF OTHER MEDICATIONS 08/21/2010 MARY DOMINIQUE DO V58 .69 LONG-TERM (CURRENT) USE OF OTHER MEDICATIONS 08/21/2010 MARY DOMINIQUE DO V58 .69 LONG-TERM (CURRENT) USE OF OTHER MEDICATIONS 08/21/2010 V58.69 EMANI G-TERM (CURRENT) USE OF OTHER MEDICATIONS 08/21/2010 V58.69 EMANI G-TERM (CURRENT) USE OF OTHER MEDICATIONS 08/21/2010 V58.69 EMANI G-TERM (CURRENT) USE OF OTHER MEDICATIONS 08/21/2010 V58.69 EMANI G-TERM (CURRENT) USE OF OTHER MEDICATIONS 08/21/2010 V58.69 EMANI G-TERM (CURRENT) USE OF OTHER MEDICATIONS 08/21/2010 V58.69 EMANI G-TERM (CURRENT) USE OF OTHER MEDICATIONS 08/21/2010 V58.69 EMANI G-TERM (CURRENT) USE OF OTHER MEDICATIONS 08/21/2010 V58.69 EMANI G-TERM (CURRENT) USE OF OTHER MEDICATIONS 08/21/2010 V58.69 EMANI G-TERM (CURRENT) USE OF OTHER MEDICATIONS 08/21/2010 IWONA GONAZLEZ PHD V58.69 LONG-TERM (CURRENT) USE OF OTHER MEDICATIONS 08/21/2010 IWONA GONZALEZ PHD V58.69 LONG-TERM (CURRENT) USE OF OTHER MEDICATIONS 08/21/2010 IWONA GONZALEZ PHD V58.69 LONG-TERM (CURRENT) USE OF OTHER MEDICATIONS 08/21/2010 IWONA GONZALEZ PHD V58.69 LONG-TERM (CURRENT) USE OF OTHER MEDICATIONS 08/21/2010 IWONA GONZALEZ PHD V58.69 LONG-TERM (CURRENT) USE OF OTHER MEDICATIONS 08/21/2010 IWONA GONZALEZ PHD V58.69 LONG-TERM (CURRENT) USE OF OTHER MEDICATIONS 08/21/2010 MELISA QUINN MD V58.6 9 LONG-TERM (CURRENT) USE OF OTHER MEDICATIONS 08/21/2010 IWONA GONZALEZ PHD V58.69 LONG-TERM (CURRENT) USE OF OTHER MEDICATIONS 08/21/2010 NIMESH TILLEY JR V58.69 LONG-TERM (CURRENT) USE OF OTHER MEDICATIONS 08/21/2010 IWONA GONZALEZ PHD V58.69 LONG-TERM (CURRENT) USE OF OTHER MEDICATIONS 08/21/2010 IWONA GONZALEZ PHD V58.69 LONG-TERM (CURRENT) USE OF OTHER MEDICATIONS 08/21/2010 IWONA GONZALEZ PHD V58.69 LONG-TERM (CURRENT) USE OF OTHER MEDICATIONS 08/21/2010 IWONA GONZALEZ PHD V58.69 LONG-TERM (CURRENT) USE OF OTHER MEDICATIONS 08/21/2010 IWONA GONZALEZ PHD V58.69 LONG-TERM (CURRENT) USE OF OTHER MEDICATIONS 08/21/2010 IWONA GONZALEZ PHD V58.69 LONG-TERM (CURRENT) USE OF OTHER MEDICATIONS 08/21/2010 ALVARADO BERKOWITZ APRN V58.69 LONG-TERM (CURRENT) USE OF OTHER MEDICATIONS 08/21/2010 ALVARADO BERKOWITZ APRN V58.69 LONG-TERM (CURRENT) USE OF OTHER MEDICATIONS 08/21/2010 IWONA GONZALEZ PHD V58.69 LONG-TERM (CURRENT) USE OF OTHER MEDICATIONS 08/21/2010 ALVARADO BERKOWITZ APRN V58.69 LONG-TERM (CURRENT) USE OF OTHER MEDICATIONS 08/21/2010 IWONA GONZALEZ PHD V58.69 LONG-TERM (CURRENT) USE OF OTHER MEDICATIONS 08/21/2010 ALVARADO BERKOWITZ APRN V58.69 LONG-TERM (CURRENT) USE OF OTHER MEDICATIONS 08/21/2010 IWONA GONZALEZ PHD V58.69 LONG-TERM (CURRENT) USE OF OTHER MEDICATIONS 08/21/2010 KASIA PALMER APRN V58.69 LONG-TERM (CURRENT) USE OF OTHER MEDICATIONS 08/21/2010 ARLET MALONEY DDS V58.69 LONG-TERM (CURRENT) USE OF OTHER MEDICATIONS 08/21/2010 ALVARADO BERKOWITZ APRN V58.69 LONG-TERM (CURRENT) USE OF OTHER MEDICATIONS 08/21/2010 IWONA GONZALEZ PHD V58.69 LONG-TERM (CURRENT) USE OF OTHER MEDICATIONS 08/21/2010 IWONA GONZALEZ PHD V58.69 LONG-TERM (CURRENT) USE OF OTHER MEDICATIONS 08/21/2010 IWONA GONZALEZ PHD V58.69 LONG-TERM (CURRENT) USE OF OTHER MEDICATIONS 08/21/2010 IWONA GONZALEZ PHD V58.69 LONG-TERM (CURRENT) USE OF OTHER MEDICATIONS 08/21/2010 IWONA GONZALEZ PHD V58.69 LONG-TERM (CURRENT) USE OF OTHER MEDICATIONS 08/21/2010 IWONA GONZALEZ PHD V58.69 LONG-TERM (CURRENT) USE OF OTHER MEDICATIONS 08/21/2010 IWONA GONZALEZ PHD V58.69 LONG-TERM (CURRENT) USE OF OTHER MEDICATIONS 08/21/2010 SARIAH STEVENSON MD V58 .69 LONG-TERM (CURRENT) USE OF OTHER MEDICATIONS 08/21/2010 IWONA GONZALEZ PHD V58.69 LONG-TERM (CURRENT) USE OF OTHER MEDICATIONS 08/21/2010 SARIAH STEVENSON MD V58 .69 LONG-TERM (CURRENT) USE OF OTHER MEDICATIONS 08/21/2010 ALVARADO BERKOWITZ APRN V58.69 LONG-TERM (CURRENT) USE OF OTHER MEDICATIONS 08/21/2010 IWONA GONZALEZ PHD V58.69 LONG-TERM (CURRENT) USE OF OTHER MEDICATIONS 08/21/2010 KASIA PALMER APRN V58.69 LONG-TERM (CURRENT) USE OF OTHER MEDICATIONS 08/21/2010 ALVARADO BERKOWITZ APRN V58.69 LONG-TERM (CURRENT) USE OF OTHER MEDICATIONS 08/21/2010 IWONA GONZALEZ PHD V58.69 LONG-TERM (CURRENT) USE OF OTHER MEDICATIONS 08/21/2010 IWONA GONZALEZ PHD V58.69 LONG-TERM (CURRENT) USE OF OTHER MEDICATIONS 08/21/2010 MARCE LUONG APRN V58.69 LONG-TERM (CURRENT) USE OF OTHER MEDICATIONS 08/21/2010 IWONA GONZALEZ PHD V58.69 LONG-TERM (CURRENT) USE OF OTHER MEDICATIONS 08/21/2010 IWONA GONZALEZ PHD V58.69 LONG-TERM (CURRENT) USE OF OTHER MEDICATIONS 08/21/2010 ALVARADO BERKOWITZ APRN V58.69 LONG-TERM (CURRENT) USE OF OTHER MEDICATIONS 08/21/2010 IWONA GONZALEZ PHD V58.69 LONG-TERM (CURRENT) USE OF OTHER MEDICATIONS 08/21/2010 IWONA GONZALEZ PHD V58.69 LONG-TERM (CURRENT) USE OF OTHER MEDICATIONS 08/21/2010 ARLET MALONEY DDS V58.69 LONG-TERM (CURRENT) USE OF OTHER MEDICATIONS 08/21/2010 IWONA GONZALEZ PHD V58.69 LONG-TERM (CURRENT) USE OF OTHER MEDICATIONS 11/10/2010 MARY DOMINIQUE DO 296 .20 MO DEPRESSIVE SINGLE UNSPECIFIED 11/10/2010 MARY DOMINIQUE DO 296 .20 MO DEPRESSIVE SINGLE UNSPECIFIED 11/10/2010 IWONA GONZALEZ PHD 296.20 MO DEPRESSIVE SINGLE UNSPECIFIED 11/10/2010 296.20 MO DEPRESSIVE SINGLE UNSPECIFIED 11/10/2010 MARY DOMINIQUE DO 296 .20 MO DEPRESSIVE SINGLE UNSPECIFIED 11/10/2010 MARY DOMINIQUE DO 296 .20 MO DEPRESSIVE SINGLE UNSPECIFIED 11/10/2010 296.20 MO DEPRESSIVE SINGLE UNSPECIFIED 11/10/2010 296.20 MO DEPRESSIVE SINGLE UNSPECIFIED 11/10/2010 296.20 MO DEPRESSIVE SINGLE UNSPECIFIED 11/10/2010 296.20 MO DEPRESSIVE SINGLE UNSPECIFIED 11/10/2010 296.20 MO DEPRESSIVE SINGLE UNSPECIFIED 11/10/2010 296.20 MO DEPRESSIVE SINGLE UNSPECIFIED 11/10/2010 296.20 MO DEPRESSIVE SINGLE UNSPECIFIED 11/10/2010 296.20 MO DEPRESSIVE SINGLE UNSPECIFIED 11/10/2010 296.20 MO DEPRESSIVE SINGLE UNSPECIFIED 11/10/2010 LISA PHD, IWONA A 296.20 MO DEPRESSIVE SINGLE UNSPECIFIED 11/10/2010 LISA PHD, IWONA A 296.20 MO DEPRESSIVE SINGLE UNSPECIFIED 11/10/2010 LISA PHD, IWONA A 296.20 MO DEPRESSIVE SINGLE UNSPECIFIED 11/10/2010 LISA PHD, IWONA A 296.20 MO DEPRESSIVE SINGLE UNSPECIFIED 11/10/2010 LISA PHD, IWONA A 296.20 MO DEPRESSIVE SINGLE UNSPECIFIED 11/10/2010 LISA PHD, IWONA A 296.20 MO DEPRESSIVE SINGLE UNSPECIFIED 11/10/2010 MELISA QUINN MD 296.2 0 MO DEPRESSIVE SINGLE UNSPECIFIED 11/10/2010 LISA PHD, IWONA A 296.20 MO DEPRESSIVE SINGLE UNSPECIFIED 11/10/2010 NIMESH TILLEY JR 296.20 MO DEPRESSIVE SINGLE UNSPECIFIED 11/10/2010 LISA PHD, IWONA A 296.20 MO DEPRESSIVE SINGLE UNSPECIFIED 11/10/2010 LISA PHD, IWONA A 296.20 MO DEPRESSIVE SINGLE UNSPECIFIED 11/10/2010 LISA PHD, IWONA A 296.20 MO DEPRESSIVE SINGLE UNSPECIFIED 11/10/2010 LISA PHD, IWONA A 296.20 MO DEPRESSIVE SINGLE UNSPECIFIED 11/10/2010 LISA PHD, IWONA A 296.20 MO DEPRESSIVE SINGLE UNSPECIFIED 11/10/2010 LISA PHD, IWONA A 296.20 MO DEPRESSIVE SINGLE UNSPECIFIED 11/10/2010 ALVARADO BERKOWITZ APRN 296.20 MO DEPRESSIVE SINGLE UNSPECIFIED 11/10/2010 ALVARADO BERKOWITZ APRN 296.20 MO DEPRESSIVE SINGLE UNSPECIFIED 11/10/2010 LISA SOUZA, IWONA Villarreal 296.20 MO DEPRESSIVE SINGLE UNSPECIFIED 11/10/2010 YANNICK BERKOWITZ APRNA J 296.20 MO DEPRESSIVE SINGLE UNSPECIFIED 11/10/2010 BOEAKILA PHD, IWONA A 296.20 MO DEPRESSIVE SINGLE UNSPECIFIED 11/10/2010 WOO BENSON, ALVARADO J 296.20 MO DEPRESSIVE SINGLE UNSPECIFIED 11/10/2010 BOEOUT PHD, IWONA A 296.20 MO DEPRESSIVE SINGLE UNSPECIFIED 11/10/2010 ESTELA BENSON, KASIA S 296.20 MO DEPRESSIVE SINGLE UNSPECIFIED 11/10/2010 ARLET MALONEY DDS 296.20 MO DEPRESSIVE SINGLE UNSPECIFIED 11/10/2010 WOO RIBBON TIER, ALVARADO J 296.20 MO DEPRESSIVE SINGLE UNSPECIFIED 11/10/2010 BOEAKILA PHD, IWONA A 296.20 MO DEPRESSIVE SINGLE UNSPECIFIED 11/10/2010 BOEAKILA PHD, IWONA A 296.20 MO DEPRESSIVE SINGLE UNSPECIFIED 11/10/2010 BOEOUT PHD, IWONA A 296.20 MO DEPRESSIVE SINGLE UNSPECIFIED 11/10/2010 BOEHARMONY PHD, IWONA A 296.20 MO DEPRESSIVE SINGLE UNSPECIFIED 11/10/2010 [facility], IW[facility] A 296.20 MO DEPRESSIVE SINGLE UNSPECIFIED 11/10/2010 [facility] PH[facility], IWONA A 296.20 MO DEPRESSIVE SINGLE UNSPECIFIED 11/10/2010 BOEHARMONY PHD, IWONA A 296.20 MO DEPRESSIVE SINGLE UNSPECIFIED 11/10/2010 SARIAH STEVENSON MD N 296 .20 MO DEPRESSIVE SINGLE UNSPECIFIED 11/10/2010 [facility] PH[facility], IWONA A 296.20 MO DEPRESSIVE SINGLE UNSPECIFIED 11/10/2010 ELVA GALVIN, SARIAH N 296 .20 MO DEPRESSIVE SINGLE UNSPECIFIED 11/10/2010 ALVARADO BERKOWITZ APRN J 296.20 MO DEPRESSIVE SINGLE UNSPECIFIED 11/10/2010 BOEOUT PHD, IWONA A 296.20 MO DEPRESSIVE SINGLE UNSPECIFIED 11/10/2010 KASIA PALMER APRN S 296.20 MO DEPRESSIVE SINGLE UNSPECIFIED 11/10/2010 ALVARADO BERKOWITZ APRN J 296.20 MO DEPRESSIVE SINGLE UNSPECIFIED 11/10/2010 [facility] PH[facility], IWONA A 296.20 MO DEPRESSIVE SINGLE UNSPECIFIED 11/10/2010 BOEAKILA PHD, IWONA A 296.20 MO DEPRESSIVE SINGLE UNSPECIFIED 11/10/2010 MARCE LUONG APRN A 296.20 MO DEPRESSIVE SINGLE UNSPECIFIED 11/10/2010 BURTOUT PHD, IWONA A 296.20 MO DEPRESSIVE SINGLE UNSPECIFIED 11/10/2010 LISA PHD, IWONA A 296.20 MO DEPRESSIVE SINGLE UNSPECIFIED 11/10/2010 WOO BENSON ALVARADO Nolvia 296.20 MO DEPRESSIVE SINGLE UNSPECIFIED 11/10/2010ANUELOUT PHD, IWONA Villarreal 296.20 MO DEPRESSIVE SINGLE UNSPECIFIED 11/10/2010 LISA PHD, IWONA Villarreal 296.20 MO DEPRESSIVE SINGLE UNSPECIFIED 11/10/2010 ARLET MALONEY DDS 296.20 MO DEPRESSIVE SINGLE UNSPECIFIED 11/10/2010HARMONY PHD, IWONA Villarreal 296.20 MO DEPRESSIVE SINGLE UNSPECIFIED 04/14/2011 MARY DOMINIQUE DO 300 .00 AN ANXIETY UNSPEC 04/14/2011 MARY DOMINIQUE DO 300 .00 AN ANXIETY UNSPEC 04/14/2011 LISA SOUZA, IWONA Villarreal 300.00 AN ANXIETY UNSPEC 04/14/2011 300.00 AN ANXIETY UNSPEC 04/14/2011 MARY DOMINIQUE DO 300 .00 AN ANXIETY UNSPEC 04/14/2011 MARY DOMINIQUE DO 300 .00 AN ANXIETY UNSPEC 04/14/2011 300.00 AN ANXIETY UNSPEC 04/14/2011 300.00 AN ANXIETY UNSPEC 04/14/2011 300.00 AN ANXIETY UNSPEC 04/14/2011 300.00 AN ANXIETY UNSPEC 04/14/2011 300.00 AN ANXIETY UNSPEC 04/14/2011 300.00 AN ANXIETY UNSPEC 04/14/2011 300.00 AN ANXIETY UNSPEC 04/14/2011 300.00 AN ANXIETY UNSPEC 04/14/2011 300.00 AN ANXIETY UNSPEC 04/14/2011 LISA SOUZA, IWONA Villarreal 300.00 AN ANXIETY UNSPEC 04/14/2011 LISA SOUZA, IWONA Villarreal 300.00 AN ANXIETY UNSPEC 04/14/2011 LISA SOUZA, IWONA Villarreal 300.00 AN ANXIETY UNSPEC 04/14/2011 LISA SOUZA, IWONA Villarreal 300.00 AN ANXIETY UNSPEC 04/14/2011 LISA SOUZA, IWONA Villarreal 300.00 AN ANXIETY UNSPEC 04/14/2011 LISA SOUZA, IWONA Villarreal 300.00 AN ANXIETY UNSPEC 04/14/2011 MELISA QUINN MD 300.0 0 AN ANXIETY UNSPEC 04/14/2011 LISA SOUZA, IWONA A 300.00 AN ANXIETY UNSPEC 04/14/2011 NIMESH TILLEY JR S 300.00 AN ANXIETY UNSPEC 04/14/2011 BOEKHOUT PHD, IWONA A 300.00 AN ANXIETY UNSPEC 04/14/2011 BOEKHOUT PHD, IWONA A 300.00 AN ANXIETY UNSPEC 04/14/2011 BOEKHOUT PHD, IWONA A 300.00 AN ANXIETY UNSPEC 04/14/2011 BOEKHOUT PHD, IWONA A 300.00 AN ANXIETY UNSPEC 04/14/2011 BOEKHOUT PHD, IWONA A 300.00 AN ANXIETY UNSPEC 04/14/2011 BOEKHOUT PHD, IWONA A 300.00 AN ANXIETY UNSPEC 04/14/2011 ALVARADO BERKOWITZ APRN 300.00 AN ANXIETY UNSPEC 04/14/2011 ALVARADO BERKOWITZ APRN 300.00 AN ANXIETY UNSPEC 04/14/2011 BOEOUT PHD, IWONA A 300.00 AN ANXIETY UNSPEC 04/14/2011 ALVARADO BERKOWITZ APRN 300.00 AN ANXIETY UNSPEC 04/14/2011 BOEOUT PHD, IWONA A 300.00 AN ANXIETY UNSPEC 04/14/2011 ALVARADO BERKOWITZ APRN 300.00 AN ANXIETY UNSPEC 04/14/2011 BOEOUT PHD, IWONA A 300.00 AN ANXIETY UNSPEC 04/14/2011 KASIA PALMER APRN 300.00 AN ANXIETY UNSPEC 04/14/2011 ARLET MALONEY DDS 300.00 AN ANXIETY UNSPEC 04/14/2011 ALVARADO BERKOWITZ APRN 300.00 AN ANXIETY UNSPEC 04/14/2011 BOEOUT PHD, IWONA A 300.00 AN ANXIETY UNSPEC 04/14/2011 BOEOUT PHD, IWONA A 300.00 AN ANXIETY UNSPEC 04/14/2011 BOEOUT PHD, IWONA A 300.00 AN ANXIETY UNSPEC 04/14/2011 BOEOUT PHD, IWONA A 300.00 AN ANXIETY UNSPEC 04/14/2011 BOEKHOUT PHD, IWONA A 300.00 AN ANXIETY UNSPEC 04/14/2011 BOEKHOUT PHD, IWONA A 300.00 AN ANXIETY UNSPEC 04/14/2011 BOEKHOUT PHD, IWONA A 300.00 AN ANXIETY UNSPEC 04/14/2011 SARIAH STEVENSON MD 300 .00 AN ANXIETY UNSPEC 04/14/2011 BOEOUT PHD, IWONA A 300.00 AN ANXIETY UNSPEC 04/14/2011 SARIAH STEVENSON MD 300 .00 AN ANXIETY UNSPEC 04/14/2011 ALVARADO BERKOWITZ APRN 300.00 AN ANXIETY UNSPEC 04/14/2011 IWONA GONZALEZ PHD 300.00 AN ANXIETY UNSPEC 04/14/2011 KASIA PALMER APRN 300.00 AN ANXIETY UNSPEC 04/14/2011 ALVARADO BERKOWITZ APRN 300.00 AN ANXIETY UNSPEC 04/14/2011 IWONA GONZALEZ PHD 300.00 AN ANXIETY UNSPEC 04/14/2011 IWONA GONZALEZ PHD 300.00 AN ANXIETY UNSPEC 04/14/2011 MARCE LUONG APRN A 300.00 AN ANXIETY UNSPEC 04/14/2011 IWONA GONZALEZ PHD 300.00 AN ANXIETY UNSPEC 04/14/2011 IWONA GONZALEZ PHD 300.00 AN ANXIETY UNSPEC 04/14/2011 ALVARADO BERKOWITZ APRN J 300.00 AN ANXIETY UNSPEC 04/14/2011 IWONA GONZALEZ PHD 300.00 AN ANXIETY UNSPEC 04/14/2011 IWONA GONZALEZ PHD 300.00 AN ANXIETY UNSPEC 04/14/2011 AMARA TRACEY ARLET 300.00 AN ANXIETY UNSPEC 04/14/2011 IWONA GONZALEZ PHD 300.00 AN ANXIETY UNSPEC 04/24/2011 MARY DOMINIQUE DO 296 .90 MOOD DISORDER 04/24/2011 MARY DOMINIQUE DO 296 .90 MOOD DISORDER 04/24/2011 IWONA GONZALEZ PHD 296.90 MOOD DISORDER 04/24/2011 296.90 MOO D DISORDER 04/24/2011 MARY DOMINIQUE DO 296 .90 MOOD DISORDER 04/24/2011 MARY DOMINIQUE DO 296 .90 MOOD DISORDER 04/24/2011 296.90 MOO D DISORDER 04/24/2011 296.90 MOO D DISORDER 04/24/2011 296.90 MOO D DISORDER 04/24/2011 296.90 MOO D DISORDER 04/24/2011 296.90 MOO D DISORDER 04/24/2011 296.90 MOO D DISORDER 04/24/2011 296.90 MOO D DISORDER 04/24/2011 296.90 MOO D DISORDER 04/24/2011 296.90 MOO D DISORDER 04/24/2011 BOEKHOUT PHD, IWONA A 296.90 MOOD DISORDER 04/24/2011 BOEAKILA PHD, IWONA A 296.90 MOOD DISORDER 04/24/2011 BOEAKILA PHD, IWONA A 296.90 MOOD DISORDER 04/24/2011 BOEAKILA PHD, IWONA A 296.90 MOOD DISORDER 04/24/2011 BOEAKILA PHD, IWONA A 296.90 MOOD DISORDER 04/24/2011 BOEAKILA PHD, IWONA A 296.90 MOOD DISORDER 04/24/2011 MELISA QUINN MD 296.9 0 MOOD DISORDER 04/24/2011 BOEAKILA PHD, IWONA A 296.90 MOOD DISORDER 04/24/2011 NIMESH TILLEY JR 296.90 MOOD DISORDER 04/24/2011 BOEAKILA PHD, IWONA A 296.90 MOOD DISORDER 04/24/2011 BOEAKILA PHD, IWONA A 296.90 MOOD DISORDER 04/24/2011 BOEAKILA PHD, IWONA A 296.90 MOOD DISORDER 04/24/2011 LISA SOUZA, IWONA A 296.90 MOOD DISORDER 04/24/2011 LISA PHD, IWONA A 296.90 MOOD DISORDER 04/24/2011 LISA PHD, IWONA A 296.90 MOOD DISORDER 04/24/2011 WOO BENSON, ALVARADO J 296.90 MOOD DISORDER 04/24/2011 WOO BENSON, ALVARADO J 296.90 MOOD DISORDER 04/24/2011 LISA SOUZA, IWONA A 296.90 MOOD DISORDER 04/24/2011 WOO BENSON, ALVARADO J 296.90 MOOD DISORDER 04/24/2011 LISA SOUZA, IWONA A 296.90 MOOD DISORDER 04/24/2011 WOO BENSON, ALVARADO J 296.90 MOOD DISORDER 04/24/2011 LISA PHD, IWONA A 296.90 MOOD DISORDER 04/24/2011 KASIA PALMER APRN 296.90 MOOD DISORDER 04/24/2011 ARLET MALONEY DDS 296.90 MOOD DISORDER 04/24/2011 WOO BENSON, ALVARADO J 296.90 MOOD DISORDER 04/24/2011 LISA SOUZA, IWONA A 296.90 MOOD DISORDER 04/24/2011 LISA SOUZA, IWONA A 296.90 MOOD DISORDER 04/24/2011 LISA SOUZA, IWONA A 296.90 MOOD DISORDER 04/24/2011 BOEKHOUT PHD, IWONA A 296.90 MOOD DISORDER 04/24/2011 BOEAKILA PHD, IWONA A 296.90 MOOD DISORDER 04/24/2011 BOEAKILA PHD, IWONA A 296.90 MOOD DISORDER 04/24/2011 BOEANUELOUT PHD, IWONA A 296.90 MOOD DISORDER 04/24/2011 ELVA GALVIN, SARIAH N 296 .90 MOOD DISORDER 04/24/2011 BOEAKILA PHD, IWONA A 296.90 MOOD DISORDER 04/24/2011 ELVA GALVIN, SARIAH N 296 .90 MOOD DISORDER 04/24/2011 WOO BENSON, ALVARADO J 296.90 MOOD DISORDER 04/24/2011 BOEAKILA PHD, IWONA A 296.90 MOOD DISORDER 04/24/2011 KASIA PALMER APRN 296.90 MOOD DISORDER 04/24/2011 WOO BENSON, ALVARADO J 296.90 MOOD DISORDER 04/24/2011 BOEAKILA PHD, IWONA A 296.90 MOOD DISORDER 04/24/2011 BOEAKILA PHD, IWONA A 296.90 MOOD DISORDER 04/24/2011 AG BENSON MARCE A 296.90 MOOD DISORDER 04/24/2011 BOEAKILA PHD, IWONA A 296.90 MOOD DISORDER 04/24/2011 BOEAKILA PHD, IWONA A 296.90 MOOD DISORDER 04/24/2011 WOO BENSON, ALVARADO J 296.90 MOOD DISORDER 04/24/2011 BOEAKILA PHD, IWONA A 296.90 MOOD DISORDER 04/24/2011 LISA SOUZA, IWONA A 296.90 MOOD DISORDER 04/24/2011 ARLET MALONEY DDS 296.90 MOOD DISORDER 04/24/2011 LISA PHD, IWONA A 296.90 MOOD DISORDER 06/02/2012 MARY DOMINIQUE DO F 300 .82 SO SOMATOFORM NOS 06/02/2012 LISA SOUZA, IWONA A 300.82 SO SOMATOFORM NOS 06/02/2012 300.82 SO SOMATOFORM NOS 06/02/2012 MARY DOMINIQUE DO F 300 .82 SO SOMATOFORM NOS 06/02/2012 MARY DOMINIQUE DO F 300 .82 SO SOMATOFORM NOS 06/02/2012 300.82 SO SOMATOFORM NOS 06/02/2012 300.82 SO SOMATOFORM NOS 06/02/2012 300.82 SO SOMATOFORM NOS 06/02/2012 300.82 SO SOMATOFORM NOS 06/02/2012 300.82 SO SOMATOFORM NOS 06/02/2012 300.82 SO SOMATOFORM NOS 06/02/2012 300.82 SO SOMATOFORM NOS 06/02/2012 300.82 SO SOMATOFORM NOS 06/02/2012 300.82 SO SOMATOFORM NOS 06/02/2012 LISA PHD, IWONA A 300.82 SO SOMATOFORM NOS 06/02/2012 BOEANUELOUT PHD, IWONA A 300.82 SO SOMATOFORM NOS 06/02/2012 BOEANUELOUT PHD, IWONA A 300.82 SO SOMATOFORM NOS 06/02/2012 BOEANUELOUT PHD, IWONA A 300.82 SO SOMATOFORM NOS 06/02/2012 BOEANUELOUT PHD, IWONA A 300.82 SO SOMATOFORM NOS 06/02/2012 BOEOUT PHD, IWONA A 300.82 SO SOMATOFORM NOS 06/02/2012 MELISA QUINN MD 300.8 2 SO SOMATOFORM NOS 06/02/2012 [email or web address], IWONA A 300.82 SO SOMATOFORM NOS 06/02/2012 NIMESH TILLEY JR 300.82 SO SOMATOFORM NOS 06/02/2012 LISA PHD, IWONA A 300.82 SO SOMATOFORM NOS 06/02/2012 [email or web address] PHD, IWONA A 300.82 SO SOMATOFORM NOS 06/02/2012 [facility] 300.82 SO SOMATOFORM NOS 06/02/2012 LISA PHD, IWONA A 300.82 SO SOMATOFORM NOS 06/02/2012 LISA PHD, IWONA A 300.82 SO SOMATOFORM NOS 06/02/2012 LISA PHD, IWONA A 300.82 SO SOMATOFORM NOS 06/02/2012 ALVARADO BERKOWITZ APRN 300.82 SO SOMATOFORM NOS 06/02/2012 ALVARADO BERKOWITZ APRN 300.82 SO SOMATOFORM NOS 06/02/2012 LISA SOUZA, IWONA A 300.82 SO SOMATOFORM NOS 06/02/2012 ALVARADO BERKOWITZ APRN 300.82 SO SOMATOFORM NOS 06/02/2012 LISA SOUZA, IWONA A 300.82 SO SOMATOFORM NOS 06/02/2012 WOO GOMESN, ALVARADO J 300.82 SO SOMATOFORM NOS 06/02/2012 [facility], IW[facility] A 300.82 SO SOMATOFORM NOS 06/02/2012 ESTELA GOMESN, KASIA S 300.82 SO SOMATOFORM NOS 06/02/2012 AMARA DDS, ARLET 300.82 SO SOMATOFORM NOS 06/02/2012 WOO GOMESN, ALVARADO J 300.82 SO SOMATOFORM NOS 06/02/2012 [facility], IWONA A 300.82 SO SOMATOFORM NOS 06/02/2012 [facility] PH[facility], IWONA A 300.82 SO SOMATOFORM NOS 06/02/2012 [facility] PH[facility], IWONA A 300.82 SO SOMATOFORM NOS 06/02/2012 [facility] PH[facility], IWONA A 300.82 SO SOMATOFORM NOS 06/02/2012 [facility] PH[facility], IWONA A 300.82 SO SOMATOFORM NOS 06/02/2012 [facility] 300.82 SO SOMATOFORM NOS 06/02/2012 [facility], IWONA A 300.82 SO SOMATOFORM NOS 06/02/2012 ELVA GALVIN, SARIAH N 300 .82 SO SOMATOFORM NOS 06/02/2012 [facility], [facility] A 300.82 SO SOMATOFORM NOS 06/02/2012 ELVA GALVIN, SARIAH N 300 .82 SO SOMATOFORM NOS 06/02/2012 WOO BENSON, ALVARADO J 300.82 SO SOMATOFORM NOS 06/02/2012 ELLYHARMONY PHD, IWONA A 300.82 SO SOMATOFORM NOS 06/02/2012 ESTELA BENSON, KASIA S 300.82 SO SOMATOFORM NOS 06/02/2012 WOO BENSON, ALVARADO J 300.82 SO SOMATOFORM NOS 06/02/2012 ELLYHARMONY PHD, IWONA A 300.82 SO SOMATOFORM NOS 06/02/2012 ELLYHARMONY PHD, IWONA A 300.82 SO SOMATOFORM NOS 06/02/2012 AG BENSON, MARCE A 300.82 SO SOMATOFORM NOS 06/02/2012 ELLYHARMONY PHD, IWONA A 300.82 SO SOMATOFORM NOS 06/02/2012 IWONA GONZALEZ PHD 300.82 SO SOMATOFORM NOS 06/02/2012 ALVARADO BERKOWITZ APRN 300.82 SO SOMATOFORM NOS 06/02/2012 IWONA GONZALEZ PHD 300.82 SO SOMATOFORM NOS 06/02/2012 IWONA GONZALEZ PHD 300.82 SO SOMATOFORM NOS 06/02/2012 AMARA TRACEYARLET 300.82 SO SOMATOFORM NOS 06/02/2012 IWONA GONZALEZ PHD 300.82 SO SOMATOFORM NOS 08/27/2012 MARY DOMINIQUE DO 312 .30 I IMPULSE CONTROL DISORDER NOS 08/27/2012 MARY DOMINIQUE DO F 317 MENTAL RETARDATION-MILD 08/27/2012 312.30 I I MPULSE CONTROL DISORDER NOS 08/27/2012 317 MENTAL RETARDATION- MILD 08/27/2012 312.30 I I MPULSE CONTROL DISORDER NOS 08/27/2012 317 MENTAL RETARDATION- MILD 08/27/2012 312.30 I I MPULSE CONTROL DISORDER NOS 08/27/2012 317 MENTAL RETARDATION- MILD 08/27/2012 312.30 I I MPULSE CONTROL DISORDER NOS 08/27/2012 317 MENTAL RETARDATION- MILD 08/27/2012 312.30 I I MPULSE CONTROL DISORDER NOS 08/27/2012 317 MENTAL RETARDATION- MILD 08/27/2012 312.30 I I MPULSE CONTROL DISORDER NOS 08/27/2012 317 MENTAL RETARDATION- MILD 08/27/2012 312.30 I I MPULSE CONTROL DISORDER NOS 08/27/2012 317 MENTAL RETARDATION- MILD 08/27/2012 312.30 I I MPULSE CONTROL DISORDER NOS 08/27/2012 317 MENTAL RETARDATION- MILD 08/27/2012 312.30 I I MPULSE CONTROL DISORDER NOS 08/27/2012 317 MENTAL RETARDATION- MILD 08/27/2012 IWONA GONZALEZ PHD 312.30 I IMPULSE CONTROL DISORDER NOS 08/27/2012 IWONA GONZALEZ PHD 3 17 MENTAL RETARDATION-MILD 08/27/2012 IWONA GONZALEZ PHD 312.30 I IMPULSE CONTROL DISORDER NOS 08/27/2012 IWONA GONZALEZ PHD 3 17 MENTAL RETARDATION-MILD 08/27/2012 IWONA GONZALEZ PHD 312.30 I IMPULSE CONTROL DISORDER NOS 08/27/2012 BOEKHOUT PHD, IWONA A 3 17 MENTAL RETARDATION-MILD 08/27/2012 LISA PHD, IWONA A 312.30 I IMPULSE CONTROL DISORDER NOS 08/27/2012 BOEANUELOUT PHD, IWONA A 3 17 MENTAL RETARDATION-MILD 08/27/2012 BOEANUELOUT PHD, IWONA A 312.30 I IMPULSE CONTROL DISORDER NOS 08/27/2012 BOEANUELOUT PHD, IWONA A 3 17 MENTAL RETARDATION-MILD 08/27/2012 BOEAKILA PHD, IWONA A 312.30 I IMPULSE CONTROL DISORDER NOS 08/27/2012 BOEAKILA PHD, IWONA A 3 17 MENTAL RETARDATION-MILD 08/27/2012 MELISA QUINN MD 312.3 0 I IMPULSE CONTROL DISORDER NOS 08/27/2012 MELISA QUINN MD 317 MENTAL RETARDATION-MILD 08/27/2012 BOEAKILA PHD, IWNOA A 312.30 I IMPULSE CONTROL DISORDER NOS 08/27/2012 BOEAKILA PHD, IWONA A 3 17 MENTAL RETARDATION-MILD 08/27/2012 NIMESH TILLEY JR 312.30 I IMPULSE CONTROL DISORDER NOS 08/27/2012 NIMESH TILLEY JR 3 17 MENTAL RETARDATION-MILD 08/27/2012 LISA PHD, IWONA A 312.30 I IMPULSE CONTROL DISORDER NOS 08/27/2012 BOEAKILA PHD, IWONA A 3 17 MENTAL RETARDATION-MILD 08/27/2012 BOEAKILA PHD, IWONA A 312.30 I IMPULSE CONTROL DISORDER NOS 08/27/2012 BOEAKILA PHD, IWONA A 3 17 MENTAL RETARDATION-MILD 08/27/2012 BOEAKILA PHD, IWONA A 312.30 I IMPULSE CONTROL DISORDER NOS 08/27/2012 LISA SOUZA, IWONA A 3 17 MENTAL RETARDATION-MILD 08/27/2012 BOEAKILA PHD, IWONA A 312.30 I IMPULSE CONTROL DISORDER NOS 08/27/2012 BOEAKILA PHD, IWONA A 3 17 MENTAL RETARDATION-MILD 08/27/2012 BOEAKILA SOUZA, IWONA A 312.30 I IMPULSE CONTROL DISORDER NOS 08/27/2012 LISA SOUZA, IWONA A 3 17 MENTAL RETARDATION-MILD 08/27/2012 BOEAKILA PHD, IWONA A 312.30 I IMPULSE CONTROL DISORDER NOS 08/27/2012 LISA PHD, IWONA A 3 17 MENTAL RETARDATION-MILD 08/27/2012 ALVARADO BERKOWITZ APRN 312.30 I IMPULSE CONTROL DISORDER NOS 08/27/2012 YANNICK BERKOWITZ APRNA J 317 MENTAL RETARDATION-MILD 08/27/2012 YANNICK BERKOWITZ APRNA J 312.30 I IMPULSE CONTROL DISORDER NOS 08/27/2012 CHELSIE BERKOWITZ APRNINDA J 317 MENTAL RETARDATION-MILD 08/27/2012 IWONA GONZALEZ PHD 312.30 I IMPULSE CONTROL DISORDER NOS 08/27/2012 IWONA GONZALEZ PHD 3 17 MENTAL RETARDATION-MILD 08/27/2012 ALVARADO BERKWOITZ APRN J 312.30 I IMPULSE CONTROL DISORDER NOS 08/27/2012 YANNICK BERKOWITZ APRNA J 317 MENTAL RETARDATION-MILD 08/27/2012 IWONA GONZALEZ PHD 312.30 I IMPULSE CONTROL DISORDER NOS 08/27/2012 IWONA GONZALEZ PHD 3 17 MENTAL RETARDATION-MILD 08/27/2012 ALVARADO BERKOWITZ APRN J 312.30 I IMPULSE CONTROL DISORDER NOS 08/27/2012 ALVARADO BERKOWITZ APRN J 317 MENTAL RETARDATION-MILD 08/27/2012 IWONA GONZALEZ PHD 312.30 I IMPULSE CONTROL DISORDER NOS 08/27/2012 IWONA GONZALEZ PHD 3 17 MENTAL RETARDATION-MILD 08/27/2012 KASIA PALMER APRN 312.30 I IMPULSE CONTROL DISORDER NOS 08/27/2012 KASIA PALMER APRN 317 MENTAL RETARDATION-MILD 08/27/2012 MALONEY DDS, ARLET 312.30 I IMPULSE CONTROL DISORDER NOS 08/27/2012 MALONEY DDS, ARLET 31 7 MENTAL RETARDATION-MILD 08/27/2012 ALVARADO BERKOWITZ APRN 312.30 I IMPULSE CONTROL DISORDER NOS 08/27/2012 ALVARADO BERKOWITZ APRN J 317 MENTAL RETARDATION-MILD 08/27/2012 IWONA GONZALEZ PHD 312.30 I IMPULSE CONTROL DISORDER NOS 08/27/2012 IWONA GONZALEZ PHD 3 17 MENTAL RETARDATION-MILD 08/27/2012 IWONA GONZALEZ PHD 312.30 I IMPULSE CONTROL DISORDER NOS 08/27/2012 IWONA GONZALEZ PHD 3 17 MENTAL RETARDATION-MILD 08/27/2012 IWONA GONZALEZ PHD 312.30 I IMPULSE CONTROL DISORDER NOS 08/27/2012 IWONA GONZALEZ PHD 3 17 MENTAL RETARDATION-MILD 08/27/2012 IWONA GONZALEZ PHD 312.30 I IMPULSE CONTROL DISORDER NOS 08/27/2012 IWONA GONZALEZ PHD 3 17 MENTAL RETARDATION-MILD 08/27/2012 IWONA GONZALEZ PHD 312.30 I IMPULSE CONTROL DISORDER NOS 08/27/2012 IWONA GONZALEZ PHD 3 17 MENTAL RETARDATION-MILD 08/27/2012 IWONA GONZALEZ PHD 312.30 I IMPULSE CONTROL DISORDER NOS 08/27/2012 IWONA GONZALEZ PHD 3 17 MENTAL RETARDATION-MILD 08/27/2012 IWONA GONZALEZ PHD 312.30 I IMPULSE CONTROL DISORDER NOS 08/27/2012 IWONA GONZALEZ PHD 3 17 MENTAL RETARDATION-MILD 08/27/2012 SARIAH STEVENSON MD N 312 .30 I IMPULSE CONTROL DISORDER NOS 08/27/2012 ELVA GALVIN, SARIAH N 317 MENTAL RETARDATION-MILD 08/27/2012 IWONA GONZALEZ PHD 312.30 I IMPULSE CONTROL DISORDER NOS 08/27/2012 IWONA GONZALEZ PHD 3 17 MENTAL RETARDATION-MILD 08/27/2012 ELVA GALVIN, SARIAH N 312 .30 I IMPULSE CONTROL DISORDER NOS 08/27/2012 ELVA GALVIN, SARIAH N 317 MENTAL RETARDATION-MILD 08/27/2012 ALVARADO BERKOWITZ APRN J 312.30 I IMPULSE CONTROL DISORDER NOS 08/27/2012 CHELSIE BERKOWITZ APRNINDA J 317 MENTAL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
== END 2019-09-06 17:53 | disposition home or self-care (01) ==
LOC: EDUNIT# 16:28 → ER 16:29
DX: K21.9 Gastro-esophageal reflux disease without esophagitis (principal); F41.9 Anxiety disorder, unspecified; G40.909 Epilepsy, unspecified, not intractable, without status epilepticus; F17.210 Nicotine dependence, cigarettes, uncomplicated
CPT/HCPCS: 36415; 80053; 83690; 85025

== ENCOUNTER 2019-09-17 14:54 | Emergency (ER) | payer MEDICARE, MEDICAID ==
[~2019-09-17] VITALS: Ht 195 cm; Wt 86.3 kg
[~2019-09-17 14:54] MED LIST changes: +FAMO-119 PO
--- NOTE | 2019-09-17 15:01 | ED Lower Extremity ---
General Stated Complaint: FOOT PAIN Source: patient Exam Limitations: no limitations History of Present Illness Date Seen by Provider: Sep 17, 2019 Time Seen by Provider: 14:58 Initial Comments To ER per EMS with reports of right great toe pain. He became angry, kicked a TV stand. He then walked from his house to [facility] to use the telephone to call EMS Onset: just prior to arrival Severity: moderate Pain/Injury Location: right foot Method of Injury: direct blow Modifying Factors: Worse With Movement Allergies and Home Medications Allergies Coded Allergies: No Known Drug Allergies (Unverified , 07/27/13) Home Medications Famotidine 20 Mg Tablet, 20 MG PO BID Prescribed by: ANGÉLICA VILLAVICENCIO on 09/06/19 1744 Hydrocodone/Acetaminophen 1 Each Tablet, 1 TAB PO Q4-6HR Prescribed by: MIGUEL SINGH on 09/17/19 1516 Quetiapine Fumarate 100 Mg Tablet, 300 MG PO HS, (Reported) Sertraline Hcl 50 Mg Tablet, 50 MG PO DAILY, (Reported) [Depakote] , ?MG BID, (Reported) Patient Home Medication List Home Medication List Reviewed: Yes Review of Systems Constitutional: see HPI EENTM: see HPI Respiratory: no symptoms reported Cardiovascular: no symptoms reported Genitourinary: no symptoms reported Musculoskeletal: see HPI Skin: no symptoms reported Psychiatric/Neurological: No Symptoms Reported Past Bbrezib-[id number]-Fqkzli Hx Patient Social History Type Used: Cigarettes 2nd Hand Smoke Exposure: Yes Recent Hopitalizations: No Immunizations Up To Date Tetanus Booster (TDap): Unknown Date of Influenza Vaccine: Mar 24, 2019 Seasonal Allergies Seasonal Allergies: No Past Medical History Surgeries: No Respiratory: No Cardiac: No Neurological: Yes Seizure Disorder Genitourinary: No Gastrointestinal: No Musculoskeletal: No Endocrine: No HEENT: No Cancer: No Psychosocial: Yes (CONDUCT DISORDER, MILD MR) Integumentary: No Blood Disorders: No Physical Exam Vital Signs Vital Signs - First Documented 09/17/19 14:57 Temp 36.1 Pulse 97 B/P (MAP) 110/71 (84) O2 Delivery Room Air Capillary Refill : Height, Weight, BMI Height: 6'5" Weight: 190lbs. oz. 86.038185dj; 25.00 BMI Method:Stated General Appearance: WD/WN, no apparent distress Neck: non-tender Hips: bilateral hip non-tender, bilateral hip normal inspection, bilateral hip normal range of motion Legs: bilateral leg non-tender (has tears), bilateral leg normal inspection, bilateral leg normal range of motion Knees: bilateral knee non-tender, bilateral knee normal inspection, bilateral knee normal range of motion Feet: right foot soft tissue tenderness, right foot other (and bruising at the IP joint of the right great toe without subungual hematoma no open wounds) Neurologic/Psychiatric: alert, normal mood/affect Progress/Results/Core Measures Results/Orders My Orders Orders - MIGUEL SINGH APRN Foot, Right, 3 View (09/17/19 14:57) Hydrocodone/Apap 5/325 Tablet (Lortab 5 (09/17/19 15:15) Vital Signs/I&O 09/17/19 14:57 Temp 36.1 Pulse 97 B/P (MAP) 110/71 (84) O2 Delivery Room Air Departure Communication (Admissions) Patient placed in a posterior short leg splint and given crutches and told to be nonweightbearing. Brisk capillary refill of all the toes. Impression Primary Impression: Toe fracture Qualified Codes: S92.404A - Nondisplaced unspecified fracture of right great toe, initial encounter for closed fracture Additional Impression: Metatarsal fracture Disposition: 01 HOME, SELF-CARE Condition: Stable Departure-Patient Inst. Decision time for Depature: 15:00 [place]: [facility] [place] Primary Care Physician FRANCIA KINSEY MD, MICHAEL P MD Patient Instructions: Toe Fracture Add. Discharge Instructions: 1. Ice pack to the toe/foot 2. Wear the splint until otherwise directed. 3. Take anti-inflammatories like ibuprofen and naproxen in addition to the prescribed pain medication. Follow-up with one of the orthopedic surgeons listed in the next few weeks. Scripts Hydrocodone/Acetaminophen (Hydrocodone/Acetaminophen 5 MG/325 MG TAB) 1 Each Tablet 1 TAB PO Q4-6HR for Pain MDD 10 TABS for 7 Days, #20 TAB Prov: MIGUEL SINGH APRN 09/17/19 MIGUEL SINGH APRN Sep 17, 2019 15:00
[2019-09-17] MEDS ORDERED: HYDROcodone/APAP 5 MG/325 MG (LORTAB) TAB PO ONE (15:15)
[2019-09-17] MEDS ORDERED: HYDR-4226 PO (15:16)
--- NOTE | 2019-09-17 15:20 | Diagnostic Imaging Report ---
INDICATION: Right foot pain post injury. EXAMINATION: AP, oblique and lateral views of the right foot were obtained at 3:15 p.m. FINDINGS: There are acute fractures of the 2nd and 3rd metatarsals, distally, without significant displacement or intra-articular extension. There is an acute fracture of the 1st metatarsal with oblique orientation which appears to extend to the tarsometatarsal joint. IMPRESSION: Acute fracture of the 1st metatarsal proximally, with oblique orientation and extension to the tarsometatarsal joint. There are also acute fractures of the 2nd and 3rd metatarsals, distally. Dictated by: Dictated on workstation # [id number]
[2019-09-17 15:30] VITALS: BP 110/71
--- OUTSIDE RECORDS SUMMARY | 2019-09-17 17:04 | XMS REPORT ---
Author Author Reymundo Hartley [facility] Address [address] [place] [address] Care Team Providers Care Blanket Maker Name Role Phone OdiliaBILLYEN Unavailable PROBLEMS Type Condition ICD9-CM Code [id number] Code Onset Dates Condition S tatus SNOMED Code Problem Alcohol abuse F10.10 Active 282606 05 Problem Relationship dysfunction Z63.9 Activ e 198563995 Problem Impulse control disorder F63.9 Activ e 22038458 Problem Depressive disorder F32.9 Active 74363962 Problem Mild intellectual disabilities F70 Active 57958780 Problem Seasonal allergic rhinitis due to pollen J30.1 Active 32650554 ALLERGIES No Information ENCOUNTERS Encounter Location Date Diagnosis [place] [address] [address] Sep, [place] [address] [address] Aug, [place] [address] [address] Jul, Depressive disorder F32.9 [place] [address] [address] Jul, [place] [address] [address] May, [place] [address] [address] Apr, [place] [address] [address] Apr, Depressive disorder F32.9 ; Impulse cont rol disorder F63.9 and Mild intellectual disabilities F70 [place] [address] [address] Apr, [facility] [address] [place] [id number] [place] [address] Apr, [facility] [address] [address] Apr, [facility] [address] [place] [id number] [place] [address] Apr, Impulse control disorder F63.9 ; Depress douglas disorder F32.9 and Mild intellectual disabilities F70 [address] [place] [address] Mar, [facility] [address] [address] Mar, [facility] [address] [address] Mar, Encounter for immunization Z23 [facility] [address] [address] Dec, [facility] [address] [address] Dec, Seasonal allergic rhinitis due to pollen J30.1 [facility] [address] [address] October, Depressive disorder F32.9 ; Impulse cont rol disorder F63.9 and Mild intellectual disabilities F70 [facility] [address] [address] Jun, Impulse control disorder F63.9 ; Mild in tellectual disabilities F70 ; Relationship dysfunction Z63.9 [address] Dep[address] disorder F32.9 [facility] [address] [place] [id number] [place] [address] Jun, [facility] [address] [address] May, [facility] [address] [address] May, [facility] [address] [address] 04 May, 2018 Encounter for immunization Z23 [facility] [address] [id number] [place] [address] Apr, [facility] [address] [address] Apr, [facility] [address] [address] Mar, [facility] [address] [address] Mar, [facility] [address] [place] [id number] [place] [address] Feb, Annual physical exam Z00.00 [facility] [address] [address] 25 Feb, 2018 Annual physical exam Z00.00 ; Mild intel lectual disabilities F70 and Encounter for immunization Z23 [facility] [address] [id number] [place] [address] Feb, [facility] [address] [address] Jan, [facility] [address] [address] Jan, Impulse control disorder F63.9 ; Mild in tellectual disabilities F70 and Depressive disorder F32.9 [facility] [id number] [place] [address] Nov, [facility] [address] [address] Nov, [facility] [address] [address] Nov, [facility] [address] [address] Nov, [facility] [address] [address] Nov, [facility] [id number] [place] [address] Nov, Impulse control disorder F63.9 ; Depress douglas disorder F32.9 and Mild intellectual disabilities F70 [facility] [id number] [place] [address] October, [facility] [address] [address] October, Impulse control disorder F63.9 ; Depress douglas disorder F32.9 and Mild intellectual disabilities F70 [facility] [address] [id number] [place] [address] Sep, [facility] [address] [address] Sep, Impulse control disorder F63.9 ; Depress douglas disorder F32.9 and Mild intellectual disabilities F70 [facility] [address] [address] Sep, Impulse control disorder F63.9 ; Depress douglas disorder F32.9 and Mild intellectual disabilities F70 [facility] [address] [id number] [place] [address] Aug, [facility] [address] [id number] [place] [address] Aug, Impulse control disorder F63.9 ; Depress douglas disorder F32.9 and Mild intellectual disabilities F70 [facility] [address] [id number] [place] [id number] Aug, Dental examination Z01.20 [facility] [address] [id number] [place] [address] Aug, [facility] [address] [address] Aug, Impulse control disorder F63.9 ; Depress douglas disorder F32.9 and Mild intellectual disabilities F70 [facility] [address] [address] Jul, Impulse control disorder F63.9 ; Depress douglas disorder F32.9 and Mild intellectual disabilities F70 [facility] [address] [id number] [place] [id number] 12 Jul, [address] [facility] [address] [address] 02 Jul, 2017 [facility] [address] [address] Jun, Impulse control disorder F63.9 ; Depress douglas disorder F32.9 and Mild intellectual disabilities F70 [facility] [address] [address] 08 Jun, 2017 Impulse control disorder F63.9 ; Depress douglas disorder F32.9 and Mild intellectual disabilities F70 [facility] [address] [address] 08 Jun, 2017 [facility] [address] [address] 08 May, 2017 [facility] [address] [address] May, Impulse control disorder F63.9 ; Depress douglas disorder F32.9 and Mild intellectual disabilities F70 [facility] [address] [address] Apr, Impulse control disorder F63.9 ; Depress douglas disorder F32.9 and Mild intellectual disabilities F70 [facility] [address] [address] Apr, Seizures R56.9 [facility] [address] [address] Apr, [facility] [address] [address] Apr, Seizures R56.9 ; Tobacco abuse Z72.0 ; A lcohol abuse F10.10 and Encounter for immunization Z23 [facility] [address] [address] 14 Apr, 2017 Impulse control disorder F63.9 ; Depress douglas disorder F32.9 and Mild intellectual disabilities F70 [facility] [address] [address] Mar, Impulse control disorder F63.9 ; Depress douglas disorder F32.9 and Mild intellectual disabilities F70 [facility] [address] [address] Mar, [facility] [address] [address] Mar, Impulse control disorder F63.9 ; Depress douglas disorder F32.9 and Mild intellectual disabilities F70 [facility] [address] [address] Mar, [facility] [address] [address] Feb, Impulse control disorder F63.9 ; Depress douglas disorder F32.9 and Mild intellectual disabilities F70 [facility] [address] [address] Feb, [facility] [address] [address] Feb, Impulse control disorder F63.9 ; Depress douglas disorder F32.9 and Mild intellectual disabilities F70 [facility] [address] [address] Jan, Annual physical exam Z00.00 ; Right hand pain M79.641 ; Impulse control disorder F63.9 ; Mild intellectual disabilities F70 and Depressive disorder F32.9 [facility] [address] [address] Jan, Impulse control disorder F63.9 ; Depress douglas disorder F32.9 and Mild intellectual disabilities F70 [facility] [address] [address] Jan, [facility] [address] [address] Jan, Impulse control disorder F63.9 ; Depress douglas disorder F32.9 and Mild intellectual disabilities F70 [facility] [address] [address] Jan, Impulse control disorder F63.9 ; Depress douglas disorder F32.9 and Mild intellectual disabilities F70 [facility] [address] [address] Dec, [facility] [address] [address] Dec, Impulse control disorder F63.9 ; Depress douglas disorder F32.9 and Mild intellectual disabilities F70 [facility] [address] [address] Nov, Impulse control disorder F63.9 ; Depress douglas disorder F32.9 and Mild intellectual disabilities F70 [facility] [address] [address] Nov, [facility] [address] [address] Nov, [facility] [address] [address] Nov, [facility] [address] [address] October, Impulse control disorder F63.9 ; Depress douglas disorder F32.9 and Mild intellectual disabilities F70 [facility] [address] [address] October, [facility] [address] [address] October, Impulse control disorder F63.9 ; Depress douglas disorder F32.9 and Mild intellectual disabilities F70 [facility] [address] [place] [id number] [place] [address] Sep, [facility] [address] [address] Sep, Impulse control disorder F63.9 ; Depress douglas disorder F32.9 and Mild intellectual disabilities F70 [facility] [address] [address] [place] [address] Sep, Seasonal allergic rhinitis due to pollen J30.1 [facility] [address] [place] [address] Sep, [facility] [address] [address] Sep, [facility] [address] [address] Sep, Impulse control disorder F63.9 ; Depress douglas disorder F32.9 and Mild intellectual disabilities F70 [facility] [address] [address] Aug, Impulse control disorder F63.9 ; Depress douglas disorder F32.9 and Mild intellectual disabilities F70 [facility] [address] [address] Aug, [facility] [address] [address] Aug, [facility] [address] [address] Jul, [facility] [address] [address] Jul, Impulse control disorder F63.9 ; Depress douglas disorder F32.9 and Mild intellectual disabilities F70 [facility] [address] [id number] [place] [id number] 10 Jul, [address] [facility] [address] [address] Jul, Impulse control disorder F63.9 ; Depress douglas disorder F32.9 and Mild intellectual disabilities F70 [facility] [address] [address] Jul, [facility] [address] [address] Jun, [facility] [address] [id number] [place] [address] Jun, Impulse control disorder F63.9 ; Depress douglas disorder F32.9 and Mild intellectual disabilities F70 [facility] [address] [place] [address] [id number] [place] [address] Jun, [facility] [address] [place] [address] Jun, [facility] [address] [address] Jun, Impulse control disorder F63.9 ; Depress douglas disorder F32.9 and Mild intellectual disabilities F70 [facility] [address] [id number] [place] [address] May, Impulse control disorder F63.9 ; Depress douglas disorder F32.9 and Mild intellectual disabilities F70 [facility] [address] [place] [address] May, Annual physical exam Z00.00 ; Other fati sarah R53.83 ; Seizures R56.9 ; Mild intellectual disabilities F70 and Impulse control disorder F63.9 [facility] [address] [place] [address] May, [facility] [address] [place] [address] May, Impulse control disorder F63.9 ; Depress douglas disorder F32.9 and Mild intellectual disabilities F70 [facility] [address] [id number] [place] [id number] Apr, Encounter for dental examination Z01.20 [facility] [id number] [place] [address] Apr, Impulse control disorder F63.9 ; Depress douglas disorder F32.9 and Mild intellectual disabilities F70 [facility] [address] [place] [id number] [place] [address] Apr, [facility] [address] [address] Mar, Impulse control disorder F63.9 ; Depress douglas disorder F32.9 and Mild intellectual disabilities F70 [facility] [address] [address] Mar, Impulse control disorder F63.9 ; Depress douglas disorder F32.9 and Mild intellectual disabilities F70 [facility] [address] [address] Mar, [facility] [address] [address] Mar, [facility] [address] [address] Feb, Impulse control disorder F63.9 ; Depress douglas disorder F32.9 and Mild intellectual disabilities F70 [facility] [address] [address] Feb, Impulse control disorder F63.9 ; Depress douglas disorder F32.9 and Mild intellectual disabilities F70 [facility] [address] [address] Feb, [facility] [address] [address] Jan, Annual physical exam Z00.00 ; Impulse co ntrol disorder F63.9 ; Mild intellectual disabilities F70 ; Depressive disorder F32.[address] [facility] [address] [address] Jan, Impulse control disorder F63.9 ; Depress douglas disorder F32.9 and Mild intellectual disabilities F70 [facility] [address] [address] Jan, [facility] [address] [address] Jan, Impulse control disorder F63.9 ; Depress douglas disorder F32.9 and Mild intellectual disabilities F70 [facility] [address] [address] Jan, [facility] [address] [address] Jan, [facility] [address] [address] Dec, Impulse control disorder F63.9 ; Depress douglas disorder F32.9 and Mild intellectual disabilities F70 [facility] [address] [address] Dec, Impulse control disorder F63.9 ; Depress douglas disorder F32.9 and Mild intellectual disabilities F70 [facility] [address] [address] Dec, [facility] [address] [address] Dec, Depressive disorder F32.9 ; Impulse cont rol disorder F63.9 and Mild intellectual disabilities F70 [facility] [address] [address] Nov, [facility] [address] [address] Nov, Depressive disorder F32.9 ; Impulse cont rol disorder F63.9 and Mild intellectual disabilities F70 [facility] [address] [address] Nov, [facility] [address] [address] October, Depressive disorder F32.9 ; Impulse cont rol disorder F63.9 and Mild intellectual disabilities F70 [facility] [address] [address] October, [facility] [address] [address] October, [facility] [address] [address] October, Depressive disorder F32.9 ; Impulse cont rol disorder F63.9 and Mild intellectual disabilities F70 [facility] [address] [address] October, [facility] [address] [address] Sep, [facility] [address] [address] Sep, Depressive disorder F32.9 ; Impulse cont rol disorder F63.9 and Mild intellectual disabilities F70 [facility] [address] [address] Sep, Depressive disorder F32.9 ; Impulse cont rol disorder F63.9 and Mild intellectual disabilities F70 [facility] [address] [address] Sep, [facility] [address] [address] Aug, [facility] [address] [address] Aug, Depressive disorder F32.9 ; Impulse cont rol disorder F63.9 and Mild intellectual disabilities F70 [facility] [address] [address] Aug, Depressive disorder F32.9 ; Impulse cont rol disorder F63.9 and Mild intellectual disabilities F70 [facility] [address] [id number] [place] [id number] Jul, Dental examination Z01.20 [facility] [address] [address] Jul, [facility] [address] [address] Jul, Depressive disorder F32.9 ; Impulse cont rol disorder F63.9 and Mild intellectual disabilities F70 [facility] [address] [address] 05 Jul, 2015 Depressive disorder F32.9 ; Impulse cont rol disorder F63.9 and Mild intellectual disabilities F70 [facility] [id number] [place] [address] 02 Jul, 2015 Depression screening Z13.89 ; Drug juliae wm, 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 and Screening for STD sexually transmitted disease Z11.3 [facility] [id number] [place] [address] Jun, [facility] [address] [address] Jun, Depressive disorder F32.9 ; Impulse cont rol disorder F63.9 and Mild intellectual disabilities F70 [facility] [address] [address] Jun, Depressive disorder, not elsewhere class ified F32.9 ; Mild mental retardation F70 and Impulse control disorder F63.9 [facility] [id number] [place] [address] Jun, Depressive disorder, not elsewhere class ified F32.9 ; Impulse control disorder F63.9 and Mild intellectual disabilities F70 [facility] [id number] [place] [address] Jun, [facility] [address] [id number] [place] [id number] Jun, Dental examination Z01.20 [facility] [id number] [place] [address] May, Depressive disorder, not elsewhere class ified F32.9 ; Impulse control disorder F63.9 and Mild intellectual disabilities F70 [facility] [id number] [place] [address] May, [facility] [address] [address] May, [facility] [address] [address] May, Depressive disorder, not elsewhere class ified F32.9 ; Impulse control disorder F63.9 and Mild intellectual disabilities F70 [facility] [address] [address] May, Depressive disorder, not elsewhere class ified F32.9 ; Impulse control disorder F63.9 and Mild mental retardation F70 [facility] [address] [address] Apr, Depressive disorder, not elsewhere class ified F32.9 ; Impulse control disorder F63.9 and Mild intellectual disabilities F70 [place] [address] [address] Apr, [facility] [address] [address] Mar, Depressive disorder, not elsewhere class ified F32.9 ; Impulse control disorder F63.9 and Mild intellectual disabilities F70 [place] [address] [address] Mar, Depressive disorder, not elsewhere class ified F32.9 ; Impulse control disorder F63.9 and Mild intellectual disabilities F70 [place] [address] [address] Mar, [place] [address] [address] Mar, Encounter for immunization Z23 [place] [address] [address] Mar, Depressive disorder, not elsewhere class ified F32.9 ; Impulse control disorder F63.9 and Mild intellectual disabilities F70 [facility] [address] [address] 17 Feb, 2015 Depressive disorder, not elsewhere class ified 311 ; Impulse control disorder, unspecified 312.30 and Mild mental retardation 317 [facility] [address] [address] 14 Feb, 2015 [facility] [address] [address] 03 Feb, 2015 Depressive disorder, not elsewhere class ified 311 ; Impulse control disorder, unspecified 312.30 and Mild mental retardation 317 [facility] [address] [address] Jan, Depressive disorder, not elsewhere class ified 311 ; Impulse control disorder, unspecified 312.30 and Mild mental retardation 317 [facility] [address] [address] Jan, Depressive disorder, not elsewhere class ified 311 ; Impulse control disorder, unspecified 312.30 and Mild mental retardation 317 [facility] [address] [address] Jan, [facility] [address] [address] Jan, Depressive disorder, not elsewhere class ified 311 ; Impulse control disorder, unspecified 312.30 and Mild mental retardation 317 [facility] [address] [address] Dec, Depressive disorder, not elsewhere class ified 311 ; Impulse control disorder, unspecified 312.30 and Mild mental retardation 317 [facility] [address] [address] Dec, [facility] [address] [id number] Dec, Dental examination V72.2 [place] [address] [address] Dec, Heat rash 705.1 ; Seizures 780.39 and Hi gh risk medication use V58.69 [facility] [address] [address] Dec, [place] [address] [address] Dec, Depressive disorder, not elsewhere class ified 311 ; Impulse control disorder, unspecified 312.30 and Mild mental retardation 317 [facility] [address] [address] Nov, Depressive disorder, not elsewhere class ified 311 ; Impulse control disorder, unspecified 312.30 and Mild mental retardation 317 [facility] [id number] [place] [address] Nov, [facility] [address] [address] Nov, Nicotine addiction 305.1 [facility] [id number] [place] [address] Nov, [facility] [address] [address] Nov, High risk medication use V58.69 [facility] [address] [address] 10 Nov, 2014 High risk medication use V58.69 [facility] [address] [address] 09 Nov, 2014 Depressive disorder, not elsewhere class ified 311 ; Impulse control disorder, unspecified 312.30 and Mild mental retardation 317 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 [id number] [place] [address] October, Depressive disorder, not elsewhere class ified 311 ; Impulse control disorder, unspecified 312.30 and Mild mental retardation 317 [facility] [address] [address] October, [facility] [id number] [place] [address] October, Depressive disorder, not elsewhere class ified 311 ; Impulse control disorder, unspecified 312.30 and Mild mental retardation 317 [facility] [id number] [place] [address] October, [facility] [address] [id number] [place] [id number] October, Dental examination V72.2 [facility] [id number] [place] [address] 30 Sep, 2014 Depressive disorder, not elsewhere class ified 311 ; Impulse control disorder 312.30 and Mild mental retardation 317 [facility] [address] [id number] [place] [address] 14 Sep, 2014 [facility] [address] [id number] [place] [address] 13 Sep, 2014 [facility] [id number] [place] [address] 26 Aug, 2014 [facility] [address] [id number] [place] [address] 26 Aug, 2014 [facility] [id number] [place] [address] Aug, [facility] [address] [id number] [place] [address] 18 Aug, 2014 [facility] [id number] [place] [address] Aug, [facility] [address] [id number] [place] [address] Aug, [facility] [id number] [place] [address] Aug, [facility] [address] [id number] [place] [address] Aug, [facility] [id number] [place] [address] Jul, [facility] [address] [id number] [place] [address] Jul, [facility] [id number] [place] [address] Jul, [facility] [address] [id number] [place] [address] Jul, 2014 [facility] [address] [id number] [place] [address] 16 Jul, 2014 [facility] [address] [id number] [facility] [place] [address] 16 Jul, 2014 [facility] [place] [facility] [address] [facility] [id number] [place] [address] Jul, 2014 [facility] [place] [facility] [address] [facility] [id number] [place] [address] Jul, 2014 [facility] [place] [facility] [address] [id number] [place] [address] Jul, 2014 [facility] [place] [facility] [address] [id number] [place] [address] Jul, 2014 [facility] [place] [facility] [address] [id number] [place] [address] Jul, 2014 [facility] [place] [facility] [address] [id number] [place] [address] Jul, [facility] [place] [facility] [address] [id number] [place] [address] Jul, [facility] [place] [facility] [address] [id number] [place] [address] Jul, [facility] [place] [facility] [address] [id number] [place] [address] Jun, [facility] [place] [facility] [address] [id number] [place] [address] Jun, [facility] [place] [facility] [address] [id number] [place] [address] Jun, [facility] [place] [facility] [address] [id number] [place] [address] Jun, [facility] [place] [facility] [address] [id number] [place] [address] Jun, [facility] [place] [facility] [address] [id number] [place] [address] Jun, [facility] [place] [facility] [address] [id number] [place] [address] Jun, [facility] [place] [facility] [address] [id number] [place] [address] Jun, [facility] [place] [facility] [address] [id number] [place] [address] Jun, [facility] [place] [facility] [address] [id number] [place] [address] Jun, [facility] [place] [facility] [address] [id number] [place] [address] Jun, [facility] [place] [facility] [address] [id number] [place] [address] Jun, [facility] [place] [facility] [address] [id number] [place] [address] Jun, [facility] [place] [facility] [address] [id number] [place] [address] Jun, [facility] [place] [facility] [address] [id number] [place] [address] Jun, [facility] [place] [facility] [address] [id number] [place] [address] Jun, [facility] [place] [facility] [address] [id number] [place] [address] Jun, [facility] [place] [facility] [address] [id number] [place] [address] Jun, [facility] [place] [facility] [address] [id number] [place] [address] Jun, [facility] [place] [facility] [address] [id number] [place] [address] Jun, [facility] [place] [facility] [address] [id number] [place] [address] May, [facility] [place] [facility] [address] [id number] [place] [address] May, [facility] [place] [facility] [address] [id number] [place] [address] May, [facility] [place] [facility] [address] [id number] [place] [address] May, [facility] [place] [facility] [address] [id number] [place] [address] May, [facility] [place] [facility] [address] [id number] [place] [address] Apr, [facility] [place] [facility] [address] [id number] [place] [address] Apr, [facility] [place] [facility] [address] [id number] [place] [address] Apr, [facility] [place] [facility] [address] [id number] [place] [address] Apr, [facility] [place] [facility] [address] [id number] [place] [address] Apr, [facility] [place] [facility] [address] [id number] [place] [address] Apr, [facility] [place] [facility] [address] [id number] [place] [address] Apr, [facility] [place] [facility] [address] [id number] [place] [address] Apr, [facility] [place] [facility] [address] [id number] [place] [address] Mar, [facility] [place] [facility] [address] [id number] [place] [address] Mar, [facility] [place] [facility] [address] [id number] [place] [address] Mar, [facility] [place] [facility] [address] [id number] [place] [address] Mar, [facility] [place] [facility] [address] [id number] [place] [address] Mar, [facility] [place] [facility] [id number] [place] [address] Mar, [facility] [place] [facility] [address] [id number] [place] [address] Mar, [facility] [place] [facility] [address] [id number] [place] [address] Mar, [facility] [place] [facility] [address] [facility] [id number] [place] [address] Mar, 2013 [facility] [place] [facility] [address] [id number] [place] [address] Mar, 2013 [facility] [place] [facility] [address] [id number] [place] [address] Mar, 2013 [facility] [place] [facility] [address] [id number] [place] [address] Mar, 2013 [facility] [place] [facility] [address] [id number] [place] [address] 15 Mar, 2013 [facility] [place] [facility] [address] [id number] [place] [address] Mar, 2013 [facility] [place] [facility] [address] [id number] [place] [address] Mar, 2013 [facility] [place] [facility] [address] [id number] [place] [address] Mar, 2013 [facility] [place] [facility] [address] [id number] [place] [address] Mar, 2013 [facility] [place] [facility] [address] [id number] [place] [address] Mar, 2013 [facility] [place] [facility] [address] [id number] [place] [address] Mar, 2013 [facility] [place] [facility] [address] [id number] [place] [address] Mar, 2013 [facility] [place] [facility] [address] [id number] [place] [address] 24 Feb, 2013 [facility] [place] [facility] [address] [facility] [id number] [place] [address] 24 Feb, 2013 [facility] [place] [facility] [address] [id number] [place] [address] 19 Feb, 2013 [facility] [place] [facility] [address] [id number] [place] [address] 19 Feb, 2013 [facility] [place] [facility] [address] [id number] [place] [address] Feb, [facility] [place] [facility] [address] [facility] [id number] [facility] [place] [address] Feb, [facility] [place] [facility] [address] [facility] [id number] [facility] [place] [address] Feb, [facility] [place] [facility] [address] [id number] [place] [address] Feb, [facility] [place] [facility] [address] [facility] [id number] [facility] [place] [address] Jan, [facility] [place] [facility] [address] [facility] [id number] [facility] [place] [address] Jan, [facility] [place] [facility] [address] [facility] [id number] [place] [address] Jan, [facility] [place] [facility] [address] [id number] [place] [address] Jan, [facility] [place] [facility] [address] [id number] [place] [address] Dec, [facility] [place] [facility] [address] [facility] [id number] [place] [address] Dec, [facility] [place] [facility] [address] [facility] [id number] [place] [address] Dec, [facility] [place] [facility] [address] [id number] [place] [address] Dec, [facility] [place] [facility] [address] [id number] [place] [address] Dec, [facility] [place] [facility] [address] [facility] [id number] [place] [address] Dec, [facility] [place] [facility] [address] [facility] [id number] [place] [address] Dec, [facility] [place] [facility] [address] [facility] [id number] [place] [address] Dec, [facility] [place] [facility] [address] [id number] [place] [address] Dec, [facility] [place] [facility] [address] [id number] [place] [address] Dec, [facility] [place] [facility] [address] [facility] [id number] [place] [address] Nov, [facility] [place] [facility] [address] [facility] [id number] [place] [address] Nov, [facility] [place] [facility] [address] [id number] [place] [address] Nov, [facility] [place] [facility] [address] [id number] [place] [address] Nov, [facility] [place] [facility] [address] [facility] [id number] [place] [address] Nov, [facility] [place] [facility] [address] [id number] [place] [address] Nov, [facility] [place] [facility] [address] [id number] [place] [address] Nov, [facility] [place] [facility] [address] [id number] [place] [address] Nov, [facility] [place] [facility] [address] [id number] [place] [address] Nov, [facility] [place] [facility] [address] [id number] [place] [address] Nov, [facility] [place] [facility] [address] [id number] [place] [address] Nov, [facility] [place] [facility] [address] [id number] [place] [address] Nov, [facility] [place] [facility] [address] [id number] [place] [address] October, [facility] [place] [facility] [address] [id number] [place] [address] October, [facility] [place] [facility] [address] [id number] [place] [address] October, [facility] [place] [facility] [address] [id number] [place] [address] October, [facility] [place] [facility] [address] [id number] [place] [address] October, [facility] [place] [facility] [address] [id number] [place] [address] October, [facility] [place] [facility] [address] [id number] [place] [address] October, [facility] [place] [facility] [address] [id number] [place] [address] October, [facility] [place] [facility] [address] [id number] [place] [address] October, [facility] [place] [facility] [address] [id number] [place] [address] October, [facility] [place] [facility] [address] [id number] [place] [address] Sep, [facility] [place] [facility] [address] [id number] [place] [address] Sep, [facility] [place] [facility] [address] [id number] [place] [address] Sep, [facility] [place] [facility] [address] [id number] [place] [address] Sep, [facility] [place] [facility] [address] [id number] [place] [address] Sep, [facility] [place] [facility] [address] [id number] [place] [address] Sep, [facility] [place] [facility] [address] [id number] [place] [address] Sep, [facility] [place] [facility] [address] [id number] [place] [address] Sep, [facility] [place] [facility] [address] [id number] [place] [address] Aug, [facility] [place] [facility] [address] [id number] [place] [address] Aug, [facility] [place] [facility] [address] [id number] [place] [address] Aug, [facility] [place] [facility] [address] [facility] [id number] [place] [address] Aug, [facility] [place] [facility] [address] [id number] [place] [address] Aug, [facility] [place] [facility] [address] [id number] [place] [address] Aug, [facility] [place] [facility] [address] [id number] [place] [address] Aug, [facility] [place] [facility] [address] [id number] [place] [address] Aug, [facility] [place] [facility] [address] [id number] [place] [address] Jul, [facility] [place] [facility] [address] [id number] [place] [address] Jul, [facility] [place] [facility] [address] [id number] [place] [address] Jul, [facility] [place] [facility] [address] [id number] [place] [address] Jul, [facility] [place] [facility] [address] [id number] [place] [address] Jul, [facility] [place] [facility] [address] [id number] [place] [address] Jul, [facility] [place] [facility] [address] [id number] [place] [address] Jul, [facility] [place] [facility] [address] [id number] [place] [address] Jul, [facility] [place] [facility] [address] [id number] [place] [address] Jun, [facility] [place] [facility] [address] [id number] [place] [address] Jun, [facility] [place] [facility] [address] [id number] [place] [address] Jun, [facility] [place] [facility] [address] [id number] [place] [address] Jun, [facility] [place] [facility] [address] [id number] [place] [address] Jun, [facility] [place] [facility] [address] [id number] [place] [address] Jun, [facility] [place] [facility] [id number] [place] [address] Jun, [facility] [place] [facility] [address] [id number] [place] [address] Jun, [facility] [place] [facility] [address] [id number] [place] [address] May, [facility] [place] [facility] [address] [id number] [place] [address] May, [facility] [place] [facility] [id number] [place] [address] May, [facility] [place] [facility] [address] [id number] [place] [address] May, [facility] [place] [facility] [address] [id number] [place] [address] May, [facility] [place] [facility] [address] [id number] [place] [address] May, [facility] [place] [facility] [address] [id number] [place] [address] Apr, [facility] [place] [facility] [address] [id number] [place] [address] Apr, [facility] [place] [facility] [address] [id number] [place] [address] Mar, [facility] [place] [facility] [id number] [place] [address] Mar, [facility] [place] [facility] [address] [id number] [place] [address] Mar, [facility] [place] [facility] [address] [id number] [place] [address] Mar, [facility] [place] [facility] [address] [facility] [id number] [place] [address] Mar, [facility] [place] [facility] [address] [facility] [id number] [facility] [place] [address] Feb, [facility] [place] [facility] [address] [id number] [place] [address] Jan, [facility] [place] [facility] [address] [id number] [place] [address] Jan, [facility] [place] [facility] [address] [facility] [id number] [place] [address] Jan, [facility] [place] [facility] [address] [id number] [place] [address] Jan, [facility] [place] [facility] [address] [id number] [place] [address] Jan, [facility] [place] [facility] [address] [id number] [place] [address] Dec, [facility] [place] [facility] [address] [id number] [place] [address] Dec, [facility] [place] [facility] [address] [id number] [place] [address] Dec, [facility] [place] [facility] [address] [id number] [place] [address] Dec, [facility] [place] [facility] [address] [id number] [place] [address] Nov, [facility] [place] [facility] [address] [facility] [id number] [place] [address] Nov, [facility] [place] [facility] [address] [id number] [place] [address] Nov, [facility] [place] [facility] [address] [id number] [place] [address] October, [facility] [place] [facility] [address] [id number] [place] [address] October, [facility] [place] [facility] [address] [id number] [place] [address] October, [facility] [place] [facility] [address] [id number] [place] [address] Sep, [facility] [place] [facility] [address] [id number] [place] [address] Sep, [facility] [place] [facility] [address] [id number] [place] [address] Aug, [facility] [place] [facility] [address] [id number] [place] [address] Aug, [facility] [place] [facility] [address] [id number] [place] [address] Jul, [facility] [place] [facility] [address] [id number] [place] [address] Jul, [facility] [place] [facility] [address] [id number] [place] [address] Jul, [facility] [place] [facility] [address] [id number] [place] [address] Jul, [facility] [place] [facility] [address] [id number] [place] [address] Jul, [facility] [place] [facility] [address] [id number] [place] [address] Jun, [facility] [place] [facility] [address] [id number] [place] [address] May, [facility] [place] [facility] [address] [id number] [place] [address] 31 May, 2012 [facility] [place] [facility] [address] [id number] [place] [address] 14 May, 2012 [facility] [place] [facility] [address] [id number] [place] [address] 14 May, 2012 [facility] [place] [facility] [address] [id number] [place] [address] May, [facility] [place] [facility] [address] [id number] [place] [address] May, [facility] [place] [facility] [address] [id number] [place] [address] May, [facility] [place] [facility] [address] [id number] [place] [address] May, [facility] [place] [facility] [address] [id number] [place] [address] Apr, [facility] [place] [facility] [address] [id number] [place] [address] Apr, [facility] [place] [facility] [address] [id number] [place] [address] Apr, [facility] [place] [facility] [address] [id number] [place] [address] Apr, [facility] [place] [facility] [address] [id number] [place] [address] Mar, [facility] [place] [facility] [address] [id number] [place] [address] Mar, [facility] [place] [facility] [address] [id number] [place] [address] Mar, [facility] [place] [facility] [address] [id number] [place] [address] Feb, [facility] [place] [facility] [address] [id number] [place] [address] Feb, [facility] [place] [facility] [address] [id number] [place] [address] Jan, [facility] [place] [facility] [address] [id number] [place] [address] Jan, [facility] [address] [id number] [place] [address] Jan, [facility] [address] [id number] [place] [address] Dec, [facility] [address] [id number] [place] [address] Dec, [facility] [address] [id number] [place] [address] Dec, [facility] [address] [facility] [id number] [facility] [place] [address] Dec, [facility] [address] [facility] [id number] [facility] [place] [address] Nov, [facility] [address] [id number] [place] [address] Nov, [facility] [address] [id number] [place] [address] Nov, [facility] [address] [facility] [id number] [facility] [place] [address] October, [facility] [address] [id number] [place] [address] October, [facility] [address] [id number] [place] [address] October, [facility] [address] [id number] [place] [address] Sep, [facility] [address] [id number] [place] [address] Sep, [facility] [address] [id number] [place] [address] Sep, [facility] [address] [id number] [place] [address] Aug, [facility] [address] [id number] [place] [address] 15 Aug, 2011 [facility] [address] [facility] [id number] [place] [address] Aug, [facility] [address] [id number] [place] [address] Jul, [facility] [address] [id number] [place] [address] Jun, [facility] [address] [id number] [place] [address] Jun, [facility] [address] [id number] [place] [address] May, [facility] [address] [id number] [place] [address] May, [facility] [address] [id number] [place] [address] May, [facility] [address] [id number] [place] [address] May, [facility] [address] [id number] [place] [address] Apr, [facility] [address] [id number] [place] [address] Apr, [facility] [address] [id number] [place] [address] Apr, [facility] [address] [id number] [place] [address] Apr, [facility] [address] [id number] [place] [address] Apr, [facility] [address] [id number] [place] [address] Mar, [facility] [address] [id number] [place] [address] Mar, [facility] [address] [id number] [place] [address] Jan, [facility] [address] [id number] [place] [address] May, [facility] [address] [id number] [place] [address] Apr, [facility] [id number] [place] [address] Mar, [facility] [address] [id number] [place] [address] Jun, [facility] [address] [id number] [place] [address] Apr, [facility] [address] [facility] [id number] [place] [address] Apr, IMMUNIZATIONS No Known Immunizations SOCIAL HISTORY Never Assessed REASON FOR VISIT PLAN OF CARE VITAL SIGNS MEDICATIONS Unknown Medications RESULTS No Results PROCEDURES No Known procedures INSTRUCTIONS MEDICATIONS ADMINISTERED No Known Medications MEDICAL (GENERAL) HISTORY Type Description Date Medical History seizures Surgical History No Surgical history information
--- OUTSIDE RECORDS SUMMARY | 2019-09-17 17:05 | XMS REPORT ---
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 Activ e [id number] Problem Impulse control disorder F63.9 Activ e [id number] Problem Depressive disorder F32.9 Active 76675396 Problem Mild intellectual disabilities F70 Active 62471108 Problem Seasonal allergic rhinitis due to pollen J30.1 Active [id number] ALLERGIES No Information ENCOUNTERS Encounter Location Date Diagnosis [place] [address] [address] Sep, [place] [address] [address] Aug, [place] [address] [address] Jul, Depressive disorder F32.9 [place] [address] [address] Jul, [place] [address] [address] May, [place] [address] [address] Apr, [place] [address] [address] Apr, Depressive disorder F32.9 ; Impulse cont rol disorder F63.9 and Mild intellectual disabilities F70 [facility] [address] [address] Apr, [place] [address] [address] Apr, [facility] [id number] [place] [address] Apr, [facility] [address] [address] Apr, Impulse control disorder F63.9 ; Depress douglas disorder F32.9 and Mild intellectual disabilities F70 [address] [place] [address] Mar, [facility] [address] [address] Mar, [facility] [address] [address] Mar, Encounter for immunization Z23 [facility] [address] [address] Dec, [facility] [address] [address] Dec, Seasonal allergic rhinitis due to pollen J30.1 [facility] [address] [place] [id number] [place] [address] October, Depressive disorder F32.9 ; Impulse cont rol disorder F63.9 and Mild intellectual disabilities F70 [facility] [address] [place] [id number] [place] [address] Jun, Impulse control disorder F63.9 ; Mild in tellectual disabilities F70 ; Relationship dysfunction Z63.9 and Depressive disorder F32.9 [facility] [id number] [place] [address] Jun, [facility] [address] [address] May, [facility] [address] [address] May, [facility] [address] [address] May, Encounter for immunization Z23 [facility] [address] [address] Apr, [facility] [address] [address] Apr, [facility] [address] [address] Mar, [facility] [address] [address] Mar, [facility] [address] [address] Feb, Annual physical exam Z00.00 [place] [address] [address] 25 Feb, 2018 Annual physical exam Z00.00 ; Mild intel lectual disabilities F70 and Encounter for immunization Z23 [facility] [address] [address] 11 Feb, 2018 [facility] [address] [address] Jan, [facility] [address] [address] Jan, Impulse control disorder F63.9 ; Mild in tellectual disabilities F70 and Depressive disorder F32.9 [facility] [address] [address] Nov, [facility] [address] [address] Nov, [facility] [address] [address] Nov, [facility] [address] [address] Nov, [facility] [address] [address] Nov, [facility] [address] [address] 05 Nov, 2017 Impulse control disorder F63.9 ; Depress douglas disorder F32.9 and Mild intellectual disabilities F70 [facility] [address] [address] October, [facility] [address] [address] October, Impulse control disorder F63.9 ; Depress douglas disorder F32.9 and Mild intellectual disabilities F70 [facility] [address] [place] [id number] Sep, [facility] [address] [address] Sep, Impulse control disorder F63.9 ; Depress douglas disorder F32.9 and Mild intellectual disabilities F70 [facility] [address] [address] Sep, Impulse control disorder F63.9 ; Depress douglas disorder F32.9 and Mild intellectual disabilities F70 [facility] [address] [address] Aug, [facility] [address] [address] Aug, Impulse control disorder F63.9 ; Depress douglas disorder F32.9 and Mild intellectual disabilities F70 [facility] [address] [id number] Aug, Dental examination Z01.20 [facility] [address] [address] Aug, [facility] [address] [address] Aug, Impulse control disorder F63.9 ; Depress douglas disorder F32.9 and Mild intellectual disabilities F70 [facility] [address] [place] [id number] Jul, Impulse control disorder F63.9 ; Depress douglas disorder F32.9 and Mild intellectual disabilities F70 [facility] [address] [id number] 12 Jul, 2017 Dental examination Z01.20 [facility] [address] [address] Jul, [facility] [address] [place] [id number] Jun, Impulse control disorder F63.9 ; Depress douglas disorder F32.9 and Mild intellectual disabilities F70 [facility] [address] [address] Jun, Impulse control disorder F63.9 ; Depress douglas disorder F32.9 and Mild intellectual disabilities F70 [facility] [address] [address] Jun, [facility] [address] [address] 08 May, 2017 [facility] [address] [address] May, Impulse control disorder F63.9 ; Depress douglas disorder F32.9 and Mild intellectual disabilities F70 [facility] [address] [address] Apr, Impulse control disorder F63.9 ; Depress douglas disorder F32.9 and Mild intellectual disabilities F70 [facility] [address] [address] Apr, Seizures R56.9 [place] [address] [address] Apr, [facility] [address] [address] Apr, Seizures R56.9 ; Tobacco abuse Z72.0 ; A lcohol abuse F10.10 and Encounter for immunization Z23 [facility] [address] [address] 14 Apr, 2017 Impulse control disorder F63.9 ; Depress douglas disorder F32.9 and Mild intellectual disabilities F70 [facility] [address] [address] Mar, Impulse control disorder F63.9 ; Depress douglas disorder F32.9 and Mild intellectual disabilities F70 [facility] [address] [address] Mar, [facility] [address] [address] Mar, Impulse control disorder F63.9 ; Depress douglas disorder F32.9 and Mild intellectual disabilities F70 [facility] [address] [address] Mar, [facility] [address] [address] Feb, Impulse control disorder F63.9 ; Depress douglas disorder F32.9 and Mild intellectual disabilities F70 [facility] [address] [address] Feb, [facility] [address] [address] Feb, Impulse control disorder F63.9 ; Depress douglas disorder F32.9 and Mild intellectual disabilities F70 [facility] [address] [address] Jan, Annual physical exam Z00.00 ; Right hand pain M79.641 ; Impulse control disorder F63.9 ; Mild intellectual disabilities F70 and Depressive disorder F32.9 [facility] [address] [address] Jan, Impulse control disorder F63.9 ; Depress douglas disorder F32.9 and Mild intellectual disabilities F70 [facility] [address] [address] Jan, [facility] [address] [address] Jan, Impulse control disorder F63.9 ; Depress douglas disorder F32.9 and Mild intellectual disabilities F70 [facility] [address] [address] Jan, Impulse control disorder F63.9 ; Depress douglas disorder F32.9 and Mild intellectual disabilities F70 [facility] [address] [address] Dec, [facility] [address] [address] Dec, Impulse control disorder F63.9 ; Depress douglas disorder F32.9 and Mild intellectual disabilities F70 [facility] [address] [address] Nov, Impulse control disorder F63.9 ; Depress douglas disorder F32.9 and Mild intellectual disabilities F70 [facility] [address] [address] Nov, [facility] [address] [address] Nov, [facility] [address] [address] Nov, [facility] [address] [address] October, Impulse control disorder F63.9 ; Depress douglas disorder F32.9 and Mild intellectual disabilities F70 [facility] [address] [address] October, [facility] [address] [address] October, Impulse control disorder F63.9 ; Depress douglas disorder F32.9 and Mild intellectual disabilities F70 [facility] [address] [address] Sep, [facility] [address] [address] Sep, Impulse control disorder F63.9 ; Depress douglas disorder F32.9 and Mild intellectual disabilities F70 [facility] [address] [address] Sep, Seasonal allergic rhinitis due to pollen J30.1 [facility] [address] [address] Sep, [facility] [address] [address] Sep, [facility] [address] [address] Sep, Impulse control disorder F63.9 ; Depress douglas disorder F32.9 and Mild intellectual disabilities F70 [facility] [address] [address] Aug, Impulse control disorder F63.9 ; Depress douglas disorder F32.9 and Mild intellectual disabilities F70 [facility] [address] [address] Aug, [facility] [address] [address] Aug, [facility] [address] [address] Jul, [facility] [address] [address] Jul, Impulse control disorder F63.9 ; Depress douglas disorder F32.9 and Mild intellectual disabilities F70 [facility] [address] [facility] [place] [id number] 10 Jul, 2016 Dental examination Z01.20 [facility] [address] [address] Jul, Impulse control disorder F63.9 ; Depress douglas disorder F32.9 and Mild intellectual disabilities F70 [facility] [address] [address] Jul, [facility] [address] [address] Jun, [facility] [address] [address] Jun, Impulse control disorder F63.9 ; Depress douglas disorder F32.9 and Mild intellectual disabilities F70 [facility] [address] [address] Jun, [facility] [address] [address] Jun, [facility] [address] [address] Jun, Impulse control disorder F63.9 ; Depress douglas disorder F32.9 and Mild intellectual disabilities F70 [facility] [address] [address] May, Impulse control disorder F63.9 ; Depress douglas disorder F32.9 and Mild intellectual disabilities F70 [facility] [address] [address] May, Annual physical exam Z00.00 ; Other fati sarah R53.83 ; Seizures R56.9 ; Mild intellectual disabilities F70 and Impulse control disorder F63.9 [facility] [address] [address] May, [facility] [address] [address] May, Impulse control disorder F63.9 ; Depress douglas disorder F32.9 and Mild intellectual disabilities F70 [facility] [address] [facility] [place] [id number] Apr, Encounter for dental examination Z01.20 [facility] [address] [address] Apr, Impulse control disorder F63.9 ; Depress douglas disorder F32.9 and Mild intellectual disabilities F70 [facility] [address] [address] Apr, [facility] [address] [address] Mar, Impulse control disorder F63.9 ; Depress douglas disorder F32.9 and Mild intellectual disabilities F70 [facility] [address] [address] Mar, Impulse control disorder F63.9 ; Depress douglas disorder F32.9 and Mild intellectual disabilities F70 [facility] [address] [address] Mar, [facility] [address] [address] Mar, [facility] [address] [address] Feb, Impulse control disorder F63.9 ; Depress douglas disorder F32.9 and Mild intellectual disabilities F70 [facility] [address] [address] Feb, Impulse control disorder F63.9 ; Depress douglas disorder F32.9 and Mild intellectual disabilities F70 [facility] [address] [address] Feb, [facility] [address] [address] Jan, Annual physical exam Z00.00 ; Impulse co ntrol disorder F63.9 ; Mild intellectual disabilities F70 ; Depressive disorder F32.9 and Seizures R56.9 [facility] [address] [address] Jan, Impulse control disorder F63.9 ; Depress douglas disorder F32.9 and Mild intellectual disabilities F70 [facility] [address] [address] Jan, [facility] [address] [address] Jan, Impulse control disorder F63.9 ; Depress douglas disorder F32.9 and Mild intellectual disabilities F70 [facility] [address] [address] Jan, [facility] [address] [address] Jan, [facility] [address] [address] Dec, Impulse control disorder F63.9 ; Depress douglas disorder F32.9 and Mild intellectual disabilities F70 [facility] [address] [address] Dec, Impulse control disorder F63.9 ; Depress douglas disorder F32.9 and Mild intellectual disabilities F70 [facility] [address] [address] Dec, [facility] [address] [address] Dec, Depressive disorder F32.9 ; Impulse cont rol disorder F63.9 and Mild intellectual disabilities F70 [facility] [address] [address] Nov, [facility] [address] [address] Nov, Depressive disorder F32.9 ; Impulse cont rol disorder F63.9 and Mild intellectual disabilities F70 [facility] [address] [address] Nov, [facility] [address] [address] October, Depressive disorder F32.9 ; Impulse cont rol disorder F63.9 and Mild intellectual disabilities F70 [facility] [address] [address] October, [facility] [address] [address] October, [facility] [address] [address] October, Depressive disorder F32.9 ; Impulse cont rol disorder F63.9 and Mild intellectual disabilities F70 [facility] [address] [address] October, [facility] [address] [address] Sep, [facility] [address] [address] Sep, Depressive disorder F32.9 ; Impulse cont rol disorder F63.9 and Mild intellectual disabilities F70 [facility] [address] [address] Sep, Depressive disorder F32.9 ; Impulse cont rol disorder F63.9 and Mild intellectual disabilities F70 [facility] [address] [address] Sep, [facility] [address] [address] Aug, [facility] [address] [address] Aug, Depressive disorder F32.9 ; Impulse cont rol disorder F63.9 and Mild intellectual disabilities F70 [facility] [address] [address] Aug, Depressive disorder F32.9 ; Impulse cont rol disorder F63.9 and Mild intellectual disabilities F70 [facility] [id number] [place] [id number] Jul, Dental examination Z01.20 [facility] [address] [address] Jul, [facility] [address] [address] Jul, Depressive disorder F32.9 ; Impulse cont rol disorder F63.9 and Mild intellectual disabilities F70 [facility] [address] [address] 05 Jul, 2015 Depressive disorder F32.9 ; Impulse cont rol disorder F63.9 and Mild intellectual disabilities F70 [facility] [address] [address] Jul, Depression screening Z13.89 ; 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, 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 and Screening for STD sexually transmitted disease Z11.3 [facility] [address] [place] [id number] Jun, [facility] [address] [address] Jun, Depressive disorder F32.9 ; Impulse cont rol disorder F63.9 and Mild intellectual disabilities F70 [facility] [address] [address] Jun, Depressive disorder, not elsewhere class ified F32.9 ; Mild mental retardation F70 and Impulse control disorder F63.9 [facility] [address] [address] Jun, Depressive disorder, not elsewhere class ified F32.9 ; Impulse control disorder F63.9 and Mild intellectual disabilities F70 [facility] [address] [address] Jun, [facility] [id number] [place] [id number] Jun, Dental examination Z01.20 [facility] [address] [address] May, Depressive disorder, not elsewhere class ified F32.9 ; Impulse control disorder F63.9 and Mild intellectual disabilities F70 [facility] [address] [address] May, [facility] [address] [address] May, [facility] [address] [address] May, Depressive disorder, not elsewhere class ified F32.9 ; Impulse control disorder F63.9 and Mild intellectual disabilities F70 [facility] [address] [address] May, Depressive disorder, not elsewhere class ified F32.9 ; Impulse control disorder F63.9 and Mild mental retardation F70 [facility] [address] [address] Apr, Depressive disorder, not elsewhere class ified F32.9 ; Impulse control disorder F63.9 and Mild intellectual disabilities F70 [facility] [address] [address] Apr, [facility] [address] [address] Mar, Depressive disorder, not elsewhere class ified F32.9 ; Impulse control disorder F63.9 and Mild intellectual disabilities F70 [facility] [address] [id number] Mar, Depressive disorder, not elsewhere class ified F32.9 ; Impulse control disorder F63.9 and Mild intellectual disabilities F70 [facility] [address] [address] Mar, [facility] [address] [address] Mar, Encounter for immunization Z23 [place] [address] [address] Mar, Depressive disorder, not elsewhere class ified F32.9 ; Impulse control disorder F63.9 and Mild intellectual disabilities F70 [facility] [address] [address] Feb, Depressive disorder, not elsewhere class ified 311 ; Impulse control disorder, unspecified 312.30 and Mild mental retardation 317 [facility] [address] [address] Feb, [facility] [address] [address] Feb, Depressive disorder, not elsewhere class ified 311 ; Impulse control disorder, unspecified 312.30 and Mild mental retardation 317 [facility] [address] [address] Jan, Depressive disorder, not elsewhere class ified 311 ; Impulse control disorder, unspecified 312.30 and Mild mental retardation 317 [place] [address] [address] Jan, Depressive disorder, not elsewhere class ified 311 ; Impulse control disorder, unspecified 312.30 and Mild mental retardation 317 [place] [address] [address] Jan, [place] [address] [address] Jan, Depressive disorder, not elsewhere class ified 311 ; Impulse control disorder, unspecified 312.30 and Mild mental retardation 317 [place] [address] [address] Dec, Depressive disorder, not elsewhere class ified 311 ; Impulse control disorder, unspecified 312.30 and Mild mental retardation 317 [place] [address] [address] Dec, [facility] [id number] [place] [id number] Dec, Dental examination V72.[address] [address] Dec, Heat rash 705.1 ; Seizures 780.39 and Hi gh risk medication use V58.69 [place] [address] [address] Dec, [address] [address] Dec, Depressive disorder, not elsewhere class ified 311 ; Impulse control disorder, unspecified 312.30 and Mild mental retardation 317 [place] [address] [address] Nov, Depressive disorder, not elsewhere class ified 311 ; Impulse control disorder, unspecified 312.30 and Mild mental retardation 317 [place] [address] [address] Nov, [facility] [id number] [place] [address] 15 Nov, 2014 Nicotine addiction 305.1 [facility] [id number] [place] [address] 11 Nov, 2014 [facility] [id number] [place] [address] 11 Nov, 2014 High risk medication use V58.69 [facility] [address] [address] 10 Nov, 2014 High risk medication use V58.69 [facility] [id number] [place] [address] 09 Nov, 2014 Depressive disorder, not elsewhere class ified 311 ; Impulse control disorder, unspecified 312.30 and Mild mental retardation 317 [facility] [id number] [place] [address] Nov, Depressive disorder, not elsewhere class ified 311 ; 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 and Impulse control disorder, unspecified 312.30 [facility] [id number] [place] [address] October, Depressive disorder, not elsewhere class ified 311 ; Impulse control disorder, unspecified 312.30 and Mild mental retardation 317 [facility] [address] [id number] [place] [address] October, [facility] [id number] [place] [address] October, Depressive disorder, not elsewhere class ified 311 ; Impulse control disorder, unspecified 312.30 and Mild mental retardation 317 [facility] [address] [id number] [place] [address] October, [facility] [address] [id number] [place] [id number] October, Dental examination V72.2 [facility] [address] [id number] [place] [address] Sep, Depressive disorder, not elsewhere class ified 311 ; Impulse control disorder 312.30 and Mild mental retardation 317 [facility] [facility] [address] [id number] [place] [address] 14 Sep, 2014 [facility] [address] [id number] [place] [address] 13 Sep, 2014 [facility] [place] [facility] [address] [id number] [place] [address] 26 Aug, 2014 [facility] [place] [facility] [address] [id number] [place] [address] 26 Aug, 2014 [facility] [place] [facility] [address] [id number] [place] [address] Aug, [facility] [place] [facility] [address] [id number] [place] [address] 18 Aug, 2014 [facility] [place] [facility] [address] [id number] [place] [address] Aug, [facility] [place] [facility] [address] [id number] [place] [address] Aug, [facility] [place] [facility] [address] [id number] [place] [address] Aug, [facility] [place] [facility] [address] [id number] [place] [address] Aug, [facility] [place] [facility] [address] [id number] [place] [address] Jul, 2014 [facility] [place] [facility] [address] [id number] [place] [address] Jul, 2014 [facility] [place] [facility] [address] [id number] [place] [address] Jul, 2014 [facility] [place] [facility] [address] [id number] [place] [address] Jul, 2014 [facility] [place] [facility] [address] [id number] [place] [address] 16 Jul, 2014 [facility] [place] [facility] [address] [id number] [place] [address] 16 Jul, 2014 [facility] [place] [facility] [address] [id number] [place] [address] Jul, 2014 [facility] [place] [facility] [address] [id number] [place] [address] Jul, 2014 [facility] [place] [facility] [address] [id number] [place] [address] Jul, 2014 [facility] [place] [facility] [address] [id number] [place] [address] Jul, 2014 [facility] [place] [facility] [address] [id number] [place] [address] Jul, [facility] [place] [facility] [address] [id number] [place] [address] Jul, [facility] [place] [facility] [address] [id number] [place] [address] Jul, [facility] [place] [facility] [address] [id number] [place] [address] Jul, [facility] [place] [facility] [address] [id number] [place] [address] Jun, [facility] [place] [facility] [address] [id number] [place] [address] Jun, [facility] [place] [facility] [address] [id number] [place] [address] Jun, [facility] [place] [facility] [address] [id number] [place] [address] Jun, [facility] [place] [facility] [address] [id number] [place] [address] Jun, [facility] [place] [facility] [address] [id number] [place] [address] Jun, [facility] [place] [facility] [address] [id number] [place] [address] Jun, [facility] [place] [facility] [address] [id number] [place] [address] Jun, [facility] [place] [facility] [address] [id number] [place] [address] 15 Jun, 2014 [facility] [place] [facility] [address] [id number] [place] [address] 15 Jun, 2014 [facility] [place] [facility] [address] [id number] [place] [address] Jun, [facility] [place] [facility] [address] [id number] [place] [address] 15 Jun, 2014 [facility] [place] [facility] [address] [id number] [place] [address] 08 Jun, 2014 [facility] [place] [facility] [address] [id number] [place] [address] 08 Jun, 2014 [facility] [place] [facility] [address] [id number] [place] [address] 08 Jun, 2014 [facility] [place] [facility] [address] [id number] [place] [address] 08 Jun, 2014 [facility] [place] [facility] [address] [id number] [place] [address] Jun, [facility] [place] [facility] [address] [id number] [place] [address] 08 Jun, 2014 [facility] [place] [facility] [address] [id number] [place] [address] Jun, [facility] [place] [facility] [address] [id number] [place] [address] 08 Jun, 2014 [facility] [place] [facility] [address] [id number] [place] [address] May, [facility] [place] [facility] [address] [id number] [place] [address] May, [facility] [place] [facility] [address] [id number] [place] [address] May, [facility] [place] [facility] [address] [id number] [place] [address] May, [facility] [place] [facility] [address] [id number] [place] [address] May, [facility] [place] [facility] [address] [id number] [place] [address] Apr, [facility] [place] [facility] [address] [id number] [place] [address] Apr, [facility] [place] [facility] [address] [id number] [place] [address] Apr, [facility] [place] [facility] [address] [id number] [place] [address] Apr, [facility] [place] [facility] [address] [id number] [place] [address] Apr, [facility] [place] [facility] [address] [id number] [place] [address] Apr, [facility] [place] [facility] [address] [id number] [place] [address] Apr, [facility] [place] [facility] [address] [id number] [place] [address] Apr, [facility] [place] [facility] [address] [id number] [place] [address] Mar, [facility] [place] [facility] [address] [id number] [place] [address] Mar, [facility] [place] [facility] [address] [id number] [place] [address] Mar, [facility] [place] [facility] [address] [id number] [place] [address] Mar, [facility] [place] [facility] [address] [id number] [place] [address] Mar, [facility] [place] [facility] [address] [id number] [place] [address] Mar, [facility] [place] [facility] [address] [id number] [place] [address] Mar, [facility] [place] [facility] [address] [id number] [place] [address] Mar, [facility] [place] [facility] [address] [id number] [place] [address] Mar, [facility] [place] [facility] [address] [facility] [id number] [place] [address] 16 Mar, 2013 [facility] [place] [facility] [address] [id number] [place] [address] 16 Mar, 2013 [facility] [place] [facility] [address] [id number] [place] [address] 16 Mar, 2013 [facility] [place] [facility] [address] [id number] [place] [address] 15 Mar, 2014 [facility] [place] [facility] [address] [id number] [place] [address] 15 Mar, 2013 [facility] [place] [facility] [address] [id number] [place] [address] Mar, [facility] [place] [facility] [address] [id number] [place] [address] Mar, 2013 [facility] [place] [facility] [address] [id number] [place] [address] Mar, [facility] [place] [facility] [address] [id number] [place] [address] Mar, [facility] [place] [facility] [address] [id number] [place] [address] Mar, [facility] [place] [facility] [address] [id number] [place] [address] Mar, [facility] [place] [facility] [address] [id number] [place] [address] 24 Feb, 2013 [facility] [place] [facility] [address] [id number] [place] [address] 24 Sep, 2013 [facility] [place] [facility] [address] [id number] [place] [address] 19 Sep, 2013 [facility] [place] [facility] [address] [id number] [place] [address] 19 Feb, 2013 [facility] [place] [facility] [address] [id number] [place] [address] 11 Feb, 2013 [facility] [place] [facility] [address] [id number] [place] [address] Feb, [facility] [place] [facility] [address] [id number] [facility] [address] Feb, [facility] [place] [facility] [address] [facility] [id number] [place] [address] Feb, [facility] [place] [facility] [address] [facility] [id number] [facility] [address] Jan, [facility] [place] [facility] [address] [facility] [id number] [facility] [address] Jan, [facility] [place] [facility] [address] [facility] [id number] [facility] [address] Jan, [facility] [place] [facility] [address] [facility] [id number] [place] [address] Jan, [facility] [place] [facility] [address] [id number] [place] [address] Dec, [facility] [place] [facility] [address] [id number] [place] [address] Dec, [facility] [place] [facility] [address] [facility] [id number] [place] [address] Dec, [facility] [place] [facility] [address] [facility] [id number] [place] [address] Dec, [facility] [place] [facility] [address] [facility] [id number] [place] [address] Dec, [facility] [place] [facility] [address] [id number] [place] [address] Dec, [facility] [place] [facility] [address] [facility] [id number] [place] [address] Dec, [facility] [place] [facility] [address] [id number] [place] [address] Dec, [facility] [place] [facility] [address] [facility] [id number] [place] [address] Dec, [facility] [place] [facility] [address] [id number] [place] [address] Dec, [facility] [place] [facility] [address] [facility] [id number] [place] [address] Nov, [facility] [place] [facility] [address] [id number] [place] [address] Nov, [facility] [place] [facility] [address] [facility] [id number] [place] [address] Nov, [facility] [place] [facility] [address] [id number] [place] [address] Nov, [facility] [place] [facility] [address] [facility] [id number] [place] [address] Nov, [facility] [place] [facility] [address] [facility] [id number] [place] [address] Nov, [facility] [place] [facility] [address] [id number] [place] [address] Nov, [facility] [place] [facility] [address] [id number] [place] [address] Nov, [facility] [place] [facility] [address] [id number] [place] [address] Nov, [facility] [place] [facility] [address] [facility] [id number] [place] [address] Nov, [facility] [place] [facility] [address] [id number] [place] [address] Nov, [facility] [place] [facility] [address] [id number] [place] [address] Nov, [facility] [place] [facility] [address] [id number] [place] [address] October, [facility] [place] [facility] [address] [id number] [place] [address] October, [facility] [place] [facility] [address] [id number] [place] [address] October, [facility] [place] [facility] [address] [id number] [place] [address] October, [facility] [place] [facility] [address] [id number] [place] [address] October, [facility] [place] [facility] [address] [id number] [place] [address] October, [facility] [place] [facility] [address] [id number] [place] [address] October, [facility] [place] [facility] [address] [id number] [place] [address] October, [facility] [place] [facility] [address] [id number] [place] [address] October, [facility] [place] [facility] [address] [id number] [place] [address] October, [facility] [place] [facility] [address] [id number] [place] [address] Sep, [facility] [place] [facility] [address] [id number] [place] [address] Sep, [facility] [place] [facility] [address] [id number] [place] [address] Sep, [facility] [place] [facility] [address] [id number] [place] [address] Sep, [facility] [place] [facility] [address] [id number] [place] [address] Sep, [facility] [place] [facility] [address] [id number] [place] [address] Sep, [facility] [place] [facility] [address] [id number] [place] [address] Sep, [facility] [place] [facility] [address] [id number] [place] [address] Sep, [facility] [place] [facility] [address] [id number] [place] [address] Aug, [facility] [place] [facility] [address] [id number] [place] [address] Aug, [facility] [place] [facility] [address] [id number] [place] [address] Aug, [facility] [place] [facility] [address] [id number] [place] [address] Aug, [facility] [place] [facility] [address] [id number] [place] [address] Aug, [facility] [place] [facility] [address] [id number] [place] [address] Aug, [facility] [place] [facility] [address] [id number] [place] [address] Aug, [facility] [place] [facility] [address] [id number] [place] [address] Aug, [facility] [place] [facility] [address] [facility] [id number] [place] [address] Jul, [facility] [place] [facility] [address] [id number] [place] [address] Jul, [facility] [place] [facility] [address] [id number] [place] [address] Jul, [facility] [place] [facility] [address] [id number] [place] [address] Jul, [facility] [place] [facility] [address] [id number] [place] [address] Jul, [facility] [place] [facility] [address] [id number] [place] [address] Jul, [facility] [place] [facility] [address] [id number] [place] [address] Jul, [facility] [place] [facility] [address] [id number] [place] [address] Jul, [facility] [place] [facility] [address] [id number] [place] [address] Jun, [facility] [place] [facility] [address] [id number] [place] [address] Jun, [facility] [place] [facility] [address] [id number] [place] [address] Jun, [facility] [place] [facility] [address] [id number] [place] [address] Jun, [facility] [place] [facility] [address] [id number] [place] [address] 16 Jun, 2013 [facility] [place] [facility] [address] [id number] [place] [address] Jun, [facility] [place] [facility] [address] [id number] [place] [address] Jun, [facility] [place] [facility] [address] [id number] [place] [address] Jun, [facility] [place] [facility] [address] [id number] [place] [address] May, [facility] [place] [facility] [address] [id number] [place] [address] May, [facility] [place] [facility] [address] [id number] [place] [address] May, [facility] [place] [facility] [address] [id number] [place] [address] May, [facility] [place] [facility] [address] [id number] [place] [address] May, [facility] [address] [id number] [place] [address] May, [facility] [address] [id number] [place] [address] Apr, [facility] [address] [id number] [place] [address] Apr, [facility] [address] [id number] [place] [address] Mar, [facility] [address] [id number] [place] [address] Mar, [facility] [id number] [place] [address] Mar, [facility] [address] [id number] [place] [address] Mar, [facility] [address] [id number] [place] [address] Mar, [facility] [address] [id number] [facility] [place] [address] Feb, [facility] [address] [facility] [id number] [facility] [place] [address] Jan, [facility] [address] [id number] [facility] [place] [address] Jan, [facility] [address] [id number] [facility] [address] Jan, [facility] [address] [facility] [id number] [facility] [place] [address] Jan, [facility] [address] [id number] [facility] [place] [address] Jan, [facility] [address] [id number] [place] [address] Dec, [facility] [address] [id number] [place] [address] Dec, [facility] [address] [id number] [place] [address] Dec, [facility] [address] [id number] [place] [address] Dec, [facility] [address] [id number] [place] [address] Nov, [facility] [address] [id number] [place] [address] Nov, [facility] [address] [id number] [place] [address] Nov, [facility] [address] [id number] [place] [address] October, [facility] [address] [id number] [place] [address] October, [facility] [address] [id number] [place] [address] October, [facility] [address] [id number] [place] [address] Sep, [facility] [address] [id number] [place] [address] Sep, [facility] [address] [id number] [place] [address] Aug, [facility] [address] [id number] [place] [address] Aug, [facility] [address] [id number] [place] [address] Jul, [facility] [address] [id number] [place] [address] Jul, [facility] [address] [id number] [place] [address] Jul, [facility] [address] [id number] [place] [address] Jul, [facility] [address] [id number] [place] [address] Jul, [facility] [address] [id number] [place] [address] Jun, [facility] [address] [id number] [place] [address] May, [facility] [address] [id number] [place] [address] 31 May, 2012 [facility] [address] [id number] [place] [address] 14 May, 2012 [facility] [address] [id number] [place] [address] 14 May, 2012 [facility] [address] [id number] [place] [address] May, [facility] [address] [id number] [place] [address] 13 May, 2012 [facility] [address] [id number] [place] [address] May, [facility] [address] [id number] [place] [address] May, [facility] [address] [id number] [place] [address] Apr, [facility] [address] [id number] [place] [address] Apr, [facility] [address] [id number] [place] [address] Apr, [facility] [address] [id number] [place] [address] Apr, [facility] [address] [id number] [place] [address] Mar, [facility] [address] [id number] [place] [address] Mar, [facility] [id number] [place] [address] Mar, [facility] [address] [id number] [place] [address] Feb, [facility] [address] [id number] [place] [address] Feb, [facility] [address] [id number] [place] [address] Jan, [facility] [address] [id number] [place] [address] Jan, [facility] [address] [id number] [place] [address] Jan, [facility] [address] [id number] [place] [address] Dec, [facility] [address] [id number] [place] [address] Dec, [facility] [address] [id number] [place] [address] Dec, [facility] [address] [id number] [place] [address] Dec, [facility] [address] [id number] [place] [address] Nov, [facility] [address] [id number] [place] [address] Nov, [facility] [address] [id number] [place] [address] Nov, [facility] [address] [id number] [place] [address] October, [facility] [address] [id number] [place] [address] October, [facility] [address] [id number] [place] [address] October, [facility] [address] [id number] [place] [address] Sep, [facility] [address] [id number] [place] [address] Sep, [facility] [address] [id number] [place] [address] Sep, [facility] [address] [id number] [place] [address] 30 Aug, 2011 [facility] [address] [id number] [place] [address] 15 Aug, 2011 [facility] [address] [id number] [place] [address] Aug, [facility] [address] [id number] [place] [address] Jul, [facility] [address] [id number] [place] [address] Jun, [facility] [address] [id number] [place] [address] Jun, [facility] [address] [id number] [place] [address] May, [facility] [address] [id number] [place] [address] May[facility] [address] [id number] [place] [address] May, [facility] [address] [id number] [place] [address] May, [facility] [address] [id number] [place] [address] Apr, [facility] [address] [id number] [place] [address] Apr, [facility] [address] [id number] [place] [address] Apr, [facility] [address] [id number] [place] [address] Apr, [facility] [address] [id number] [place] [address] Apr, [facility] [address] [id number] [place] [address] Mar, [facility] [address] [id number] [place] [address] Mar, [facility] [address] [id number] [place] [address] Jan, [facility] [address] [id number] [place] [address] May, [facility] [address] [id number] [place] [address] Apr, [facility] [address] [id number] [place] [address] Mar, [facility] [id number] [place] [address] Jun, [facility] [address] [id number] [place] [address] Apr, [facility] [id number] [place] [address] Apr, IMMUNIZATIONS No Known Immunizations SOCIAL HISTORY Never Assessed REASON FOR VISIT PLAN OF CARE VITAL SIGNS MEDICATIONS Unknown Medications RESULTS No Results PROCEDURES No Known procedures INSTRUCTIONS MEDICATIONS ADMINISTERED No Known Medications MEDICAL (GENERAL) HISTORY Type Description Date Medical History seizures Surgical History No Surgical history information
--- OUTSIDE RECORDS SUMMARY | 2019-09-17 17:05 | XMS REPORT ---
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 Activ e [id number] Problem Impulse control disorder F63.9 Activ e 92365413 Problem Depressive disorder F32.9 Active 15743923 Problem Mild intellectual disabilities F70 Active 42310493 Problem Seasonal allergic rhinitis due to pollen J30.1 Active 35084657 ALLERGIES No Information ENCOUNTERS Encounter Location Date Diagnosis [place] [address] [address] Sep, [place] [address] [address] Aug, [place] [address] [address] Jul, Depressive disorder F32.9 [place] [address] [address] Jul, [place] [address] [address] May, [place] [address] [address] Apr, [place] [address] [address] Apr, Depressive disorder F32.9 ; Impulse cont rol disorder F63.9 and Mild intellectual disabilities F70 [place] [address] [address] Apr, [facility] [id number] [place] [address] Apr, [facility] [address] [address] Apr, [facility] [id number] [place] [address] Apr, Impulse control disorder F63.9 ; Depress douglas disorder F32.9 and Mild intellectual disabilities F70 [address] [place] [address] Mar, [facility] [address] [address] Mar, [facility] [address] [address] Mar, Encounter for immunization Z23 [facility] [address] [address] Dec, [facility] [address] [address] Dec, Seasonal allergic rhinitis due to pollen J30.1 [facility] [address] [address] October, Depressive disorder F32.9 ; Impulse cont rol disorder F63.9 and Mild intellectual disabilities F70 [facility] [address] [address] Jun, Impulse control disorder F63.9 ; Mild in tellectual disabilities F70 ; Relationship dysfunction Z63.9 [address] Dep[address] disorder F32.9 [facility] [address] [id number] [place] [address] Jun, [facility] [address] [address] May, [facility] [address] [address] May, [facility] [address] [address] May, Encounter for immunization Z23 [facility] [id number] [place] [address] Apr, [facility] [id number] [place] [address] Apr, [facility] [id number] [place] [address] Mar, [facility] [address] [address] Mar, [facility] [id number] [place] [address] 26 Feb, 2018 Annual physical exam Z00.00 [place] [address] [address] 25 Feb, 2018 Annual physical exam Z00.00 ; Mild intel lectual disabilities F70 and Encounter for immunization Z23 [facility] [id number] [place] [address] Feb, [facility] [id number] [place] [address] Jan, [facility] [address] [address] Jan, Impulse control disorder F63.9 ; Mild in tellectual disabilities F70 and Depressive disorder F32.9 [facility] [address] [address] [id number] [place] [address] Nov, [facility] [id number] [place] [address] Nov, [facility] [address] [address] Nov, [facility] [address] [address] Nov, [facility] [address] [address] Nov, [facility] [address] [address] Nov, Impulse control disorder F63.9 ; Depress douglas disorder F32.9 and Mild intellectual disabilities F70 [facility] [address] [address] October, [facility] [address] [address] October, Impulse control disorder F63.9 ; Depress douglas disorder F32.9 and Mild intellectual disabilities F70 [facility] [address] [address] Sep, [facility] [address] [address] Sep, Impulse control disorder F63.9 ; Depress douglas disorder F32.9 and Mild intellectual disabilities F70 [facility] [address] [address] Sep, Impulse control disorder F63.9 ; Depress douglas disorder F32.9 and Mild intellectual disabilities F70 [facility] [address] [address] Aug, [facility] [address] [address] Aug, Impulse control disorder F63.9 ; Depress douglas disorder F32.9 and Mild intellectual disabilities F70 [facility] [id number] [place] [id number] Aug, Dental examination Z01.20 [facility] [address] [address] Aug, [facility] [address] [address] Aug, Impulse control disorder F63.9 ; Depress douglas disorder F32.9 and Mild intellectual disabilities F70 [facility] [address] [address] Jul, Impulse control disorder F63.9 ; Depress douglas disorder F32.9 and Mild intellectual disabilities F70 [facility] [address] [facility] [place] [id number] 12 Jul, [address] [facility] [address] [address] 02 Jul, 2017 [facility] [address] [address] Jun, Impulse control disorder F63.9 ; Depress douglas disorder F32.9 and Mild intellectual disabilities F70 [facility] [address] [address] 08 Jun, 2017 Impulse control disorder F63.9 ; Depress douglas disorder F32.9 and Mild intellectual disabilities F70 [facility] [address] [address] 08 Jun, 2017 [facility] [address] [address] May, [facility] [address] [address] 05 May, 2017 Impulse control disorder F63.9 ; Depress douglas disorder F32.9 and Mild intellectual disabilities F70 [facility] [address] [address] Apr, Impulse control disorder F63.9 ; Depress douglas disorder F32.9 and Mild intellectual disabilities F70 [facility] [address] [address] Apr, Seizures R56.9 [facility] [address] [address] Apr, [facility] [address] [address] Apr, Seizures R56.9 ; Tobacco abuse Z72.0 ; A lcohol abuse F10.10 and Encounter for immunization Z23 [facility] [address] [address] 14 Apr, 2017 Impulse control disorder F63.9 ; Depress douglas disorder F32.9 and Mild intellectual disabilities F70 [facility] [address] [address] Mar, Impulse control disorder F63.9 ; Depress douglas disorder F32.9 and Mild intellectual disabilities F70 [facility] [address] [address] Mar, [facility] [address] [address] Mar, Impulse control disorder F63.9 ; Depress douglas disorder F32.9 and Mild intellectual disabilities F70 [facility] [address] [address] Mar, [facility] [address] [address] Feb, Impulse control disorder F63.9 ; Depress douglas disorder F32.9 and Mild intellectual disabilities F70 [facility] [address] [address] Feb, [facility] [address] [address] Feb, Impulse control disorder F63.9 ; Depress douglas disorder F32.9 and Mild intellectual disabilities F70 [facility] [address] [address] Jan, Annual physical exam Z00.00 ; Right hand pain M79.641 ; Impulse control disorder F63.9 ; Mild intellectual disabilities F70 and Depressive disorder F32.9 [facility] [address] [address] Jan, Impulse control disorder F63.9 ; Depress douglas disorder F32.9 and Mild intellectual disabilities F70 [facility] [address] [address] Jan, [facility] [address] [address] Jan, Impulse control disorder F63.9 ; Depress duoglas disorder F32.9 and Mild intellectual disabilities F70 [facility] [address] [facility] [place] [address] Jan, Impulse control disorder F63.9 ; Depress douglas disorder F32.9 and Mild intellectual disabilities F70 [facility] [id number] [place] [address] Dec, [facility] [address] [address] Dec, Impulse control disorder F63.9 ; Depress douglas disorder F32.9 and Mild intellectual disabilities F70 [facility] [address] [address] Nov, Impulse control disorder F63.9 ; Depress douglas disorder F32.9 and Mild intellectual disabilities F70 [facility] [address] [id number] [place] [address] Nov, [facility] [address] [address] Nov, [facility] [address] [address] Nov, [facility] [address] [address] October, Impulse control disorder F63.9 ; Depress douglas disorder F32.9 and Mild intellectual disabilities F70 [facility] [address] [address] October, [facility] [address] [address] October, Impulse control disorder F63.9 ; Depress douglas disorder F32.9 and Mild intellectual disabilities F70 [facility] [id number] [place] [address] Sep, [facility] [address] [address] Sep, Impulse control disorder F63.9 ; Depress douglas disorder F32.9 and Mild intellectual disabilities F70 [facility] [address] [place] [address] Sep, Seasonal allergic rhinitis due to pollen J30.1 [facility] [address] [address] Sep, [facility] [address] [address] Sep, [facility] [address] [address] Sep, Impulse control disorder F63.9 ; Depress douglas disorder F32.9 and Mild intellectual disabilities F70 [facility] [address] [address] Aug, Impulse control disorder F63.9 ; Depress douglas disorder F32.9 and Mild intellectual disabilities F70 [facility] [address] [address] Aug, [facility] [address] [address] Aug, [facility] [address] [address] Jul, [facility] [address] [address] Jul, Impulse control disorder F63.9 ; Depress douglas disorder F32.9 and Mild intellectual disabilities F70 [facility] [id number] [place] [id number] 10 Jul, [address] [facility] [address] [address] Jul, Impulse control disorder F63.9 ; Depress douglas disorder F32.9 and Mild intellectual disabilities F70 [facility] [address] [address] Jul, [facility] [address] [address] Jun, [facility] [address] [address] Jun, Impulse control disorder F63.9 ; Depress douglas disorder F32.9 and Mild intellectual disabilities F70 [facility] [address] [address] Jun, [facility] [address] [address] Jun, [facility] [address] [address] Jun, Impulse control disorder F63.9 ; Depress douglas disorder F32.9 and Mild intellectual disabilities F70 [facility] [address] [address] May, Impulse control disorder F63.9 ; Depress douglas disorder F32.9 and Mild intellectual disabilities F70 [facility] [address] [address] May, Annual physical exam Z00.00 ; Other fati sarah R53.83 ; Seizures R56.9 ; Mild intellectual disabilities F70 and Impulse control disorder F63.9 [facility] [address] [address] May, [facility] [address] [address] May, Impulse control disorder F63.9 ; Depress douglas disorder F32.9 and Mild intellectual disabilities F70 [facility] [address] [facility] [place] [id number] Apr, Encounter for dental examination Z01.20 [facility] [address] [address] Apr, Impulse control disorder F63.9 ; Depress douglas disorder F32.9 and Mild intellectual disabilities F70 [facility] [address] [address] Apr, [facility] [address] [address] Mar, Impulse control disorder F63.9 ; Depress douglas disorder F32.9 and Mild intellectual disabilities F70 [facility] [address] [address] Mar, Impulse control disorder F63.9 ; Depress douglas disorder F32.9 and Mild intellectual disabilities F70 [facility] [address] [address] Mar, [facility] [address] [address] Mar, [facility] [address] [address] Feb, Impulse control disorder F63.9 ; Depress douglas disorder F32.9 and Mild intellectual disabilities F70 [facility] [address] [address] Feb, Impulse control disorder F63.9 ; Depress douglas disorder F32.9 and Mild intellectual disabilities F70 [facility] [address] [address] Feb, [facility] [address] [address] Jan, Annual physical exam Z00.00 ; Impulse co ntrol disorder F63.9 ; Mild intellectual disabilities F70 ; Depressive disorder F32[address] [facility] [address] [address] Jan, Impulse control disorder F63.9 ; Depress douglas disorder F32.9 and Mild intellectual disabilities F70 [facility] [address] [address] Jan, [facility] [address] [address] Jan, Impulse control disorder F63.9 ; Depress douglas disorder F32.9 and Mild intellectual disabilities F70 [facility] [address] [address] Jan, [facility] [address] [facility] [place] [address] Jan, [facility] [address] [facility] [place] [address] Dec, Impulse control disorder F63.9 ; Depress douglas disorder F32.9 and Mild intellectual disabilities F70 [facility] [address] [address] Dec, Impulse control disorder F63.9 ; Depress douglas disorder F32.9 and Mild intellectual disabilities F70 [facility] [address] [address] Dec, [facility] [id number] [place] [address] Dec, Depressive disorder F32.9 ; Impulse cont rol disorder F63.9 and Mild intellectual disabilities F70 [facility] [address] [address] Nov, [facility] [address] [address] Nov, Depressive disorder F32.9 ; Impulse cont rol disorder F63.9 and Mild intellectual disabilities F70 [facility] [address] [address] Nov, [facility] [address] [address] October, Depressive disorder F32.9 ; Impulse cont rol disorder F63.9 and Mild intellectual disabilities F70 [facility] [id number] [place] [address] October, [facility] [address] [address] October, [facility] [id number] [place] [address] October, Depressive disorder F32.9 ; Impulse cont rol disorder F63.9 and Mild intellectual disabilities F70 [facility] [address] [address] October, [facility] [address] [address] Sep, [facility] [address] [address] Sep, Depressive disorder F32.9 ; Impulse cont rol disorder F63.9 and Mild intellectual disabilities F70 [facility] [address] [address] Sep, Depressive disorder F32.9 ; Impulse cont rol disorder F63.9 and Mild intellectual disabilities F70 [facility] [address] [address] Sep, [facility] [address] [address] Aug, [facility] [address] [address] Aug, Depressive disorder F32.9 ; Impulse cont rol disorder F63.9 and Mild intellectual disabilities F70 [facility] [address] [address] Aug, Depressive disorder F32.9 ; Impulse cont rol disorder F63.9 and Mild intellectual disabilities F70 [facility] [address] [facility] [place] [id number] Jul, Dental examination Z01.20 [facility] [address] [address] Jul, [facility] [address] [address] Jul, Depressive disorder F32.9 ; Impulse cont rol disorder F63.9 and Mild intellectual disabilities F70 [facility] [address] [address] 05 Jul, 2015 Depressive disorder F32.9 ; Impulse cont rol disorder F63.9 and Mild intellectual disabilities F70 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 [id number] [place] [address] Jun, [facility] [address] [address] Jun, Depressive disorder F32.9 ; Impulse cont rol disorder F63.9 and Mild intellectual disabilities F70 [facility] [address] [address] Jun, Depressive disorder, not elsewhere class ified F32.9 ; Mild mental retardation F70 and Impulse control disorder F63.9 [place] [id number] [address] Jun, Depressive disorder, not elsewhere class ified F32.9 ; Impulse control disorder F63.9 and Mild intellectual disabilities F70 [facility] [id number] [place] [address] Jun, [facility] [id number] [place] [id number] Jun, Dental examination Z01.20 [facility] [id number] [place] [address] May, Depressive disorder, not elsewhere class ified F32.9 ; Impulse control disorder F63.9 and Mild intellectual disabilities F70 [facility] [id number] [place] [address] May, [facility] [address] [address] May, [facility] [address] [id number] May, Depressive disorder, not elsewhere class ified F32.9 ; Impulse control disorder F63.9 and Mild intellectual disabilities F70 [facility] [address] [address] May, Depressive disorder, not elsewhere class ified F32.9 ; Impulse control disorder F63.9 and Mild mental retardation F70 [facility] [address] [address] Apr, Depressive disorder, not elsewhere class ified F32.9 ; Impulse control disorder F63.9 and Mild intellectual disabilities F70 [facility] [address] [address] Apr, [facility] [address] [address] Mar, Depressive disorder, not elsewhere class ified F32.9 ; Impulse control disorder F63.9 and Mild intellectual disabilities F70 [facility] [address] [address] Mar, Depressive disorder, not elsewhere class ified F32.9 ; Impulse control disorder F63.9 and Mild intellectual disabilities F70 [facility] [address] [address] Mar, [facility] [address] [address] Mar, Encounter for immunization Z23 [facility] [address] [address] Mar, Depressive disorder, not elsewhere class ified F32.9 ; Impulse control disorder F63.9 and Mild intellectual disabilities F70 [facility] [address] [address] 17 Feb, 2015 Depressive disorder, not elsewhere class ified 311 ; Impulse control disorder, unspecified 312.30 and Mild mental retardation 317 [facility] [address] [address] 14 Feb, 2015 [facility] [address] [address] 03 Feb, 2015 Depressive disorder, not elsewhere class ified 311 ; Impulse control disorder, unspecified 312.30 and Mild mental retardation 317 [facility] [id number] [place] [address] Jan, Depressive disorder, not elsewhere class ified 311 ; Impulse control disorder, unspecified 312.30 and Mild mental retardation 317 [facility] [address] [address] [address] Jan, Depressive disorder, not elsewhere class ified 311 ; Impulse control disorder, unspecified 312.30 and Mild mental retardation 317 [facility] [address] [address] Jan, [facility] [address] [address] Jan, Depressive disorder, not elsewhere class ified 311 ; Impulse control disorder, unspecified 312.30 and Mild mental retardation 317 [facility] [address] [address] Dec, Depressive disorder, not elsewhere class ified 311 ; Impulse control disorder, unspecified 312.30 and Mild mental retardation 317 [facility] [address] [address] Dec, [facility] [id number] [place] [id number] Dec, Dental examination V72.2 [place] [address] [address] Dec, Heat rash 705.1 ; Seizures 780.39 and Hi gh risk medication use V58.69 [facility] [address] [address] Dec, [facility] [address] [address] Dec, Depressive disorder, not elsewhere class ified 311 ; Impulse control disorder, unspecified 312.30 and Mild mental retardation 317 [facility] [address] [address] Nov, Depressive disorder, not elsewhere class ified 311 ; Impulse control disorder, unspecified 312.30 and Mild mental retardation 317 [facility] [id number] [place] [address] 16 Nov, 2014 [facility] [id number] [place] [address] Nov, Nicotine addiction 305.1 [facility] [id number] [place] [address] 11 Nov, 2014 [facility] [address] [address] Nov, High risk medication use V58.69 [facility] [address] [address] 10 Nov, 2014 High risk medication use V58.69 [facility] [address] [address] 09 Nov, 2014 Depressive disorder, not elsewhere class ified 311 ; Impulse control disorder, unspecified 312.30 and Mild mental retardation 317 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 [id number] [place] [address] October, Depressive disorder, not elsewhere class ified 311 ; Impulse control disorder, unspecified 312.30 and Mild mental retardation 317 [facility] [id number] [place] [address] October, [facility] [id number] [place] [address] October, Depressive disorder, not elsewhere class ified 311 ; Impulse control disorder, unspecified 312.30 and Mild mental retardation 317 [facility] [id number] [place] [address] October, [facility] [address] [id number] [place] [id number] October, Dental examination V72.2 [facility] [id number] [place] [address] 30 Sep, 2014 Depressive disorder, not elsewhere class ified 311 ; Impulse control disorder 312.30 and Mild mental retardation 317 [facility] [id number] [place] [address] 14 Sep, 2014 [facility] [address] [id number] [place] [address] 13 Sep, 2014 [facility] [id number] [place] [address] Aug, [facility] [id number] [place] [address] Aug, [facility] [id number] [place] [address] Aug, [facility] [id number] [place] [address] Aug, [facility] [id number] [place] [address] Aug, [facility] [id number] [place] [address] Aug, [facility] [id number] [place] [address] Aug, [facility] [id number] [place] [address] Aug, [facility] [id number] [place] [address] Jul, [facility] [id number] [place] [address] Jul, [facility] [id number] [place] [address] Jul, [facility] [id number] [place] [address] Jul, [facility] [id number] [place] [address] 16 Jul, 2014 [facility] [id number] [place] [address] 16 Jul, 2014 [facility] [place] [facility] [address] [id number] [place] [address] Jul, 2014 [facility] [place] [facility] [address] [id number] [place] [address] Jul, 2014 [facility] [place] [facility] [address] [id number] [place] [address] Jul, 2014 [facility] [place] [facility] [address] [id number] [place] [address] Jul, 2014 [facility] [place] [facility] [address] [id number] [place] [address] Jul, 2014 [facility] [place] [facility] [address] [id number] [place] [address] Jul, 2014 [facility] [place] [facility] [address] [id number] [place] [address] Jul, 2014 [facility] [place] [facility] [address] [id number] [place] [address] Jul, [facility] [place] [facility] [address] [id number] [place] [address] Jun, [facility] [place] [facility] [address] [id number] [place] [address] Jun, [facility] [place] [facility] [address] [id number] [place] [address] Jun, [facility] [place] [facility] [address] [id number] [place] [address] Jun, [facility] [place] [facility] [address] [id number] [place] [address] Jun, [facility] [place] [facility] [id number] [place] [address] Jun, [facility] [place] [facility] [address] [id number] [place] [address] Jun, [facility] [place] [facility] [address] [id number] [place] [address] Jun, [facility] [place] [facility] [address] [id number] [place] [address] Jun, [facility] [place] [facility] [address] [id number] [place] [address] Jun, [facility] [place] [facility] [address] [id number] [place] [address] Jun, [facility] [place] [facility] [address] [id number] [place] [address] Jun, [facility] [place] [facility] [address] [id number] [place] [address] 08 Jun, 2014 [facility] [place] [facility] [address] [id number] [place] [address] Jun, [facility] [place] [facility] [address] [id number] [place] [address] 08 Jun, 2014 [facility] [place] [facility] [address] [id number] [place] [address] Jun, [facility] [place] [facility] [address] [id number] [place] [address] 08 Jun, 2014 [facility] [place] [facility] [address] [id number] [place] [address] Jun, [facility] [place] [facility] [address] [id number] [place] [address] 08 Jun, 2014 [facility] [place] [facility] [address] [id number] [place] [address] Jun, [facility] [place] [facility] [address] [id number] [place] [address] May, [facility] [place] [facility] [address] [id number] [place] [address] May, [facility] [place] [facility] [address] [id number] [place] [address] May, [facility] [place] [facility] [address] [id number] [place] [address] May, [facility] [place] [facility] [address] [id number] [place] [address] May, [facility] [place] [facility] [address] [id number] [place] [address] Apr, [facility] [place] [facility] [address] [id number] [place] [address] Apr, [facility] [place] [facility] [address] [id number] [place] [address] Apr, [facility] [place] [facility] [address] [id number] [place] [address] Apr, [facility] [place] [facility] [address] [id number] [place] [address] Apr, [facility] [place] [facility] [address] [id number] [place] [address] Apr, [facility] [place] [facility] [address] [id number] [place] [address] Apr, [facility] [place] [facility] [address] [id number] [place] [address] Apr, [facility] [place] [facility] [address] [id number] [place] [address] Mar, [facility] [place] [facility] [address] [id number] [place] [address] Mar, [facility] [place] [facility] [address] [id number] [place] [address] Mar, [facility] [place] [facility] [address] [id number] [place] [address] Mar, [facility] [place] [facility] [address] [id number] [place] [address] Mar, [facility] [place] [facility] [address] [id number] [place] [address] Mar, [facility] [place] [facility] [address] [id number] [place] [address] Mar, [facility] [place] [facility] [address] [id number] [place] [address] Mar, [facility] [place] [facility] [address] [id number] [place] [address] 16 Mar, 2013 [facility] [place] [facility] [address] [id number] [place] [address] 16 Mar, 2013 [facility] [place] [facility] [address] [id number] [place] [address] 16 Mar, 2013 [facility] [place] [facility] [address] [id number] [place] [address] 16 Mar, 2013 [facility] [place] [facility] [address] [id number] [place] [address] 15 Mar, 2013 [facility] [place] [facility] [address] [id number] [place] [address] 15 Mar, 2013 [facility] [place] [facility] [address] [id number] [place] [address] Mar, 2013 [facility] [place] [facility] [address] [id number] [place] [address] Mar, 2013 [facility] [place] [facility] [address] [id number] [place] [address] Mar, 2013 [facility] [place] [facility] [address] [id number] [place] [address] Mar, 2013 [facility] [place] [facility] [address] [id number] [place] [address] Mar, 2013 [facility] [place] [facility] [address] [id number] [place] [address] Mar, 2013 [facility] [place] [facility] [address] [id number] [place] [address] 24 Feb, 2013 [facility] [place] [facility] [address] [id number] [place] [address] 24 Sep, 2013 [facility] [place] [facility] [address] [id number] [place] [address] 19 Sep, 2013 [facility] [place] [facility] [address] [id number] [place] [address] 19 Sep, 2013 [facility] [place] [facility] [address] [id number] [place] [address] 11 Sep, 2013 [facility] [place] [facility] [address] [id number] [place] [address] Feb, 2013 [facility] [place] [facility] [address] [facility] [id number] [place] [address] Feb, [facility] [place] [facility] [address] [facility] [id number] [place] [address] Feb, [facility] [place] [facility] [address] [id number] [place] [address] Jan, [facility] [place] [facility] [address] [facility] [id number] [place] [address] Jan, [facility] [place] [facility] [address] [id number] [place] [address] Jan, [facility] [place] [facility] [address] [facility] [id number] [place] [address] Jan, [facility] [place] [facility] [address] [id number] [place] [address] Dec, [facility] [place] [facility] [address] [facility] [id number] [place] [address] Dec, [facility] [place] [facility] [address] [id number] [place] [address] Dec, [facility] [place] [facility] [address] [facility] [id number] [place] [address] Dec, [facility] [place] [facility] [address] [id number] [place] [address] Dec, [facility] [place] [facility] [address] [facility] [id number] [place] [address] Dec, [facility] [place] [facility] [address] [id number] [place] [address] Dec, [facility] [place] [facility] [address] [facility] [id number] [place] [address] Dec, [facility] [place] [facility] [address] [id number] [place] [address] Dec, [facility] [place] [facility] [address] [id number] [place] [address] Dec, [facility] [place] [facility] [address] [facility] [id number] [place] [address] Nov, [facility] [place] [facility] [address] [facility] [id number] [place] [address] Nov, [facility] [place] [facility] [address] [id number] [place] [address] Nov, [facility] [place] [facility] [address] [facility] [id number] [place] [address] Nov, [facility] [place] [facility] [address] [facility] [id number] [place] [address] Nov, [facility] [place] [facility] [address] [id number] [place] [address] Nov, [facility] [place] [facility] [address] [id number] [place] [address] Nov, [facility] [place] [facility] [address] [id number] [place] [address] Nov, [facility] [place] [facility] [address] [id number] [place] [address] Nov, [facility] [place] [facility] [address] [id number] [place] [address] Nov, [facility] [place] [facility] [address] [id number] [place] [address] Nov, [facility] [place] [facility] [address] [id number] [place] [address] Nov, [facility] [place] [facility] [address] [facility] [id number] [place] [address] October, [facility] [place] [facility] [address] [id number] [place] [address] October, [facility] [place] [facility] [address] [id number] [place] [address] October, [facility] [place] [facility] [address] [id number] [place] [address] October, [facility] [place] [facility] [address] [id number] [place] [address] October, [facility] [place] [facility] [address] [id number] [place] [address] October, [facility] [place] [facility] [address] [id number] [place] [address] October, [facility] [place] [facility] [address] [id number] [place] [address] October, [facility] [place] [facility] [address] [id number] [place] [address] October, [facility] [place] [facility] [address] [id number] [place] [address] October, [facility] [place] [facility] [address] [id number] [place] [address] Sep, [facility] [place] [facility] [address] [id number] [place] [address] Sep, [facility] [place] [facility] [address] [id number] [place] [address] Sep, [facility] [place] [facility] [address] [id number] [place] [address] Sep, [facility] [place] [facility] [address] [id number] [place] [address] Sep, [facility] [place] [facility] [address] [id number] [place] [address] Sep, [facility] [place] [facility] [address] [id number] [place] [address] Sep, [facility] [place] [facility] [address] [id number] [place] [address] Sep, [facility] [place] [facility] [address] [id number] [place] [address] Aug, [facility] [place] [facility] [address] [id number] [place] [address] Aug, [facility] [place] [facility] [address] [id number] [place] [address] Aug, [facility] [place] [facility] [address] [facility] [id number] [place] [address] Aug, [facility] [place] [facility] [address] [facility] [id number] [place] [address] Aug, [facility] [place] [facility] [address] [facility] [id number] [place] [address] Aug, [facility] [place] [facility] [address] [id number] [place] [address] Aug, [facility] [place] [facility] [address] [facility] [id number] [place] [address] Aug, [facility] [place] [facility] [address] [id number] [place] [address] Jul, [facility] [place] [facility] [address] [id number] [place] [address] Jul, [facility] [place] [facility] [address] [id number] [place] [address] Jul, [facility] [place] [facility] [address] [facility] [id number] [place] [address] Jul, [facility] [place] [facility] [address] [id number] [place] [address] Jul, [facility] [place] [facility] [address] [id number] [place] [address] Jul, [facility] [place] [facility] [address] [id number] [place] [address] Jul, [facility] [place] [facility] [address] [facility] [id number] [place] [address] Jul, [facility] [place] [facility] [address] [id number] [place] [address] Jun, [facility] [place] [facility] [address] [id number] [place] [address] Jun, [facility] [place] [facility] [address] [id number] [place] [address] Jun, [facility] [place] [facility] [address] [id number] [place] [address] Jun, [facility] [place] [facility] [address] [id number] [place] [address] Jun, [facility] [place] [facility] [address] [id number] [place] [address] Jun, [facility] [place] [facility] [address] [id number] [place] [address] Jun, [facility] [place] [facility] [address] [id number] [place] [address] Jun, [facility] [place] [facility] [address] [id number] [place] [address] May, [facility] [place] [facility] [address] [id number] [place] [address] May, [facility] [place] [facility] [address] [id number] [place] [address] May, [facility] [place] [facility] [address] [id number] [place] [address] May, [facility] [place] [facility] [address] [id number] [place] [address] May, [facility] [place] [facility] [address] [id number] [place] [address] May, [facility] [place] [facility] [address] [id number] [place] [address] Apr, [facility] [place] [facility] [address] [id number] [place] [address] Apr, [facility] [place] [facility] [address] [id number] [place] [address] Mar, [facility] [place] [facility] [id number] [place] [address] Mar, [facility] [place] [facility] [address] [id number] [place] [address] Mar, [facility] [place] [facility] [address] [id number] [place] [address] Mar, [facility] [place] [facility] [address] [facility] [id number] [place] [address] Mar, [facility] [place] [facility] [address] [id number] [place] [address] Feb, [facility] [place] [facility] [address] [id number] [place] [address] Jan, [facility] [place] [facility] [address] [id number] [place] [address] Jan, [facility] [place] [facility] [address] [facility] [id number] [place] [address] Jan, [facility] [address] [id number] [place] [address] Jan, [facility] [address] [id number] [place] [address] Jan, [facility] [address] [id number] [place] [address] Dec, [facility] [address] [id number] [place] [address] Dec, [facility] [address] [id number] [place] [address] Dec, [facility] [address] [id number] [place] [address] Dec, [facility] [address] [id number] [place] [address] Nov, [facility] [address] [id number] [place] [address] Nov, [facility] [address] [id number] [place] [address] Nov, [facility] [address] [id number] [place] [address] October, [facility] [address] [id number] [place] [address] October, [facility] [address] [id number] [place] [address] October, [facility] [address] [id number] [place] [address] Sep, [facility] [address] [id number] [place] [address] Sep, [facility] [address] [id number] [place] [address] Aug, [facility] [address] [id number] [place] [address] Aug, [facility] [address] [id number] [place] [address] Jul, [facility] [address] [id number] [place] [address] Jul, [facility] [address] [id number] [place] [address] Jul, [facility] [address] [id number] [place] [address] Jul, [facility] [address] [id number] [place] [address] Jul, [facility] [address] [id number] [place] [address] Jun, [facility] [address] [id number] [place] [address] May, [facility] [address] [id number] [place] [address] 31 May, 2012 [facility] [address] [id number] [place] [address] 14 May, 2012 [facility] [address] [id number] [place] [address] 14 May, 2012 [facility] [address] [id number] [place] [address] 13 May, 2012 [facility] [address] [id number] [place] [address] 13 May, 2012 [facility] [address] [id number] [place] [address] May, [facility] [address] [id number] [place] [address] May, [facility] [address] [id number] [place] [address] Apr, [facility] [address] [id number] [place] [address] Apr, [facility] [address] [id number] [place] [address] Apr, [facility] [address] [id number] [place] [address] Apr, [facility] [address] [id number] [place] [address] Mar, [facility] [address] [id number] [place] [address] Mar, [facility] [address] [id number] [place] [address] Mar, [facility] [address] [id number] [place] [address] Feb, [facility] [address] [id number] [place] [address] Feb, [facility] [address] [id number] [place] [address] Jan, [facility] [address] [id number] [place] [address] Jan, [facility] [address] [facility] [facility] [id number] [place] [address] Jan, [facility] [address] [id number] [place] [address] Dec, [facility] [address] [id number] [place] [address] Dec, [facility] [address] [id number] [place] [address] Dec, [facility] [address] [id number] [place] [address] Dec, [facility] [address] [id number] [place] [address] Nov, [facility] [address] [id number] [place] [address] Nov, [facility] [address] [id number] [place] [address] Nov, [facility] [address] [facility] [id number] [place] [address] October, [facility] [address] [id number] [place] [address] October, [facility] [address] [id number] [place] [address] October, [facility] [address] [id number] [place] [address] Sep, [facility] [address] [id number] [place] [address] Sep, [facility] [address] [id number] [place] [address] Sep, [facility] [address] [id number] [place] [address] Aug, [facility] [address] [id number] [place] [address] 15 Aug, 2011 [facility] [address] [id number] [place] [address] Aug, [facility] [address] [id number] [place] [address] Jul, [facility] [address] [id number] [place] [address] Jun, [facility] [address] [id number] [place] [address] Jun, [facility] [address] [id number] [place] [address] May, [facility] [address] [id number] [place] [address] May, [facility] [address] [id number] [place] [address] May, [facility] [address] [id number] [place] [address] May, [facility] [address] [id number] [place] [address] Apr, [facility] [address] [id number] [place] [address] Apr, [facility] [address] [id number] [place] [address] Apr, [facility] [id number] [place] [address] Apr, [facility] [address] [id number] [place] [address] Apr, [facility] [address] [id number] [place] [address] Mar, [facility] [address] [id number] [place] [address] Mar, [facility] [address] [id number] [place] [address] Jan, [facility] [address] [id number] [place] [address] May, [facility] [address] [id number] [place] [address] Apr, [facility] [id number] [place] [address] Mar, [facility] [address] [id number] [place] [address] Jun, [facility] [address] [id number] [place] [address] Apr, [facility] [address] [facility] [id number] [place] [address] Apr, IMMUNIZATIONS No Known Immunizations SOCIAL HISTORY Never Assessed REASON FOR VISIT PLAN OF CARE VITAL SIGNS MEDICATIONS Unknown Medications RESULTS No Results PROCEDURES Procedure Date Ordered Result Body Site PSYTX PT&/FAMILY 45 MINUTES Jul 31, 2013 INSTRUCTIONS MEDICATIONS ADMINISTERED No Known Medications MEDICAL (GENERAL) HISTORY Type Description Date Medical History seizures Surgical History No Surgical history information
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
== END 2019-09-17 15:35 | disposition home or self-care (01) ==
LOC: EDUNIT# 14:54 → ER 14:55
DX: S92.404A Nondisplaced unspecified fracture of right great toe, initial encounter for closed fracture (principal); W22.09XA Striking against other stationary object, initial encounter; G40.909 Epilepsy, unspecified, not intractable, without status epilepticus; F79 Unspecified intellectual disabilities; Y92.009 Unspecified place in unspecified non-institutional (private) residence as the place of occurrence of the external cause
CPT/HCPCS: 29515; 73630